=== PATIENT | male | born 1965 | race Caucasian/White ===

== ENCOUNTER 2018-06-12 18:52 | Inpatient (IN) | payer OTHER ==
[2018-06-12] MEDS ORDERED: ACETAMINOPHEN TAB 500 MG TAB PO STA (19:08)
--- NOTE | 2018-06-12 19:12 | ED ---
SOB HPI - General Source: patient Mode of arrival: wheelchair Limitations: no limitations <Shruthi Puente - Last Filed: 06/12/18 22:59> <Gerard Pollock - Last Filed: 06/13/18 08:05> - General Chief Complaint: Shortness of Breath Stated Complaint: heron Time Seen by Provider: 06/12/18 19:02 - History of Present Illness Initial Comments: 53-year-old male patient presents to the emergency department today for evaluation of progressive dyspnea. Patient states that over the last year he has been having increased difficulty with his breathing. States he did stop smoking approximately one month ago. Patient states over the last month his breathing seems to have worsened. States he has seen his doctor multiple times , did complete a course of steroids which did help with wheezing however he still feels very short of breath. Patient states he feels short of breath at rest and especially with activity. States he does DuoNeb breathing treatments 4 times daily. States he does have a cough denies any sputum production with this. States he has been chilled. He denies any chest pain, dizziness, or weakness. Denies any abdominal pain, nausea, or vomiting. Patient denies any recent rash, diarrhea, constipation, back pain, numbness, tingling, hematuria, dysuria, urinary urgency, urinary frequency, headache, visual changes, or any other complaints. (Shruthi Puente) - Related Data Home Medications Medication Instructions Recorded Confirmed Albuterol Inhaler [Ventolin Hfa 2 puff INHALATION RT-QID PRN 06/12/18 06/12/18 Inhaler] Fluticasone/Vilanterol [Breo 1 puff INHALATION RT-DAILY 06/12/18 06/12/18 Ellipta 200-25 Mcg INH] Levofloxacin [Levaquin] 500 mg PO DAILY 06/12/18 06/12/18 predniSONE See Taper PO DIRECTED 06/12/18 06/12/18 Allergies Allergy/AdvReac Type Severity Reaction Status Date / Time No Known Allergies Allergy Verified 06/12/18 19:10 Review of Systems ROS Other: All systems not noted in ROS Statement are negative. <Shruthi Puente - Last Filed: 06/12/18 22:59> ROS Other: All systems not noted in ROS Statement are negative. <Gerard Pollock - Last Filed: 06/13/18 08:05> ROS Statement: Those systems with pertinent positive or pertinent negative responses have been documented in the HPI. Past Medical History Past Medical History: No Reported History History of Any Multi-Drug Resistant Organisms: None Reported Past Surgical History: No Surgical Hx Reported Past Psychological History: No Psychological Hx Reported Smoking Status: Former smoker Past Alcohol Use History: Occasional Past Drug Use History: None Reported <Shruthi Puente M - Last Filed: 06/12/18 22:59> General Exam Limitations: no limitations General appearance: alert, in no apparent distress, other (This is a well- developed, well-nourished adult male in mild respiratory distress. Vital signs upon presentation are temperature 102.7F oral, pulse 111, respirations 28, blood pressure 128/82, pulse ox 90% on room air.) Eye exam: Present: normal appearance, PERRL, EOMI. Absent: scleral icterus, conjunctival injection, periorbital swelling ENT exam: Present: normal exam, normal oropharynx, mucous membranes moist Respiratory exam: Present: decreased breath sounds (Generalized). Absent: normal lung sounds bilaterally, respiratory distress, wheezes, rales, rhonchi, stridor Cardiovascular Exam: Present: normal rhythm, tachycardia, normal heart sounds. Absent: systolic murmur, diastolic murmur, rubs, gallop, clicks GI/Abdominal exam: Present: soft, normal bowel sounds. Absent: distended, tenderness, guarding, rebound, rigid Neurological exam: Present: alert, oriented X3, CN II-XII intact Psychiatric exam: Present: normal affect, normal mood Skin exam: Present: warm, dry, intact, normal color. Absent: rash <Shruthi Puente M - Last Filed: 06/12/18 22:59> Vital Signs 06/12/18 06/12/18 06/12/18 18:53 19:12 19:38 Temperature 98.3 F 102.7 F H Pulse Rate 111 H 105 H Respiratory 28 H 46 H Rate Blood Pressure 128/82 O2 Sat by Pulse 90 L Oximetry 06/12/18 06/12/18 06/12/18 19:40 19:50 19:58 Temperature Pulse Rate 105 H 100 101 H Respiratory 13 20 Rate Blood Pressure 118/75 O2 Sat by Pulse 94 L 94 L Oximetry 06/12/18 06/12/18 06/12/18 20:00 20:03 20:10 Temperature Pulse Rate 101 H 100 102 H Respiratory 24 20 Rate Blood Pressure 108/78 O2 Sat by Pulse 93 L 92 L Oximetry 06/12/18 06/12/18 06/12/18 20:20 20:30 20:40 Temperature Pulse Rate 101 H 100 101 H Respiratory 20 39 H 29 H Rate Blood Pressure 108/78 108/78 106/72 O2 Sat by Pulse 91 L 93 L 94 L Oximetry 06/12/18 06/12/18 06/12/18 20:50 21:00 21:10 Temperature Pulse Rate 96 96 93 Respiratory 20 17 15 Rate Blood Pressure 106/72 106/72 105/70 O2 Sat by Pulse 92 L 91 L 93 L Oximetry 06/12/18 06/12/18 06/12/18 21:20 21:24 21:30 Temperature 100.6 F H Pulse Rate 92 90 Respiratory 14 16 Rate Blood Pressure 105/70 105/70 O2 Sat by Pulse 93 L 93 L Oximetry 06/12/18 06/12/18 06/12/18 21:40 21:50 22:00 Temperature Pulse Rate 86 83 83 Respiratory 16 16 19 Rate Blood Pressure 97/70 97/70 97/70 O2 Sat by Pulse 92 L 94 L 92 L Oximetry 06/12/18 06/12/18 06/12/18 22:10 22:20 22:30 Temperature Pulse Rate 83 87 86 Respiratory 18 21 9 L Rate Blood Pressure 91/70 O2 Sat by Pulse 92 L 93 L 93 L Oximetry 06/12/18 06/12/18 06/12/18 22:40 22:50 23:00 Temperature Pulse Rate 81 85 84 Respiratory 11 L 25 H 18 Rate Blood Pressure 105/78 105/78 105/78 O2 Sat by Pulse 91 L 88 L 90 L Oximetry 06/12/18 06/12/18 06/12/18 23:10 23:20 23:30 Temperature Pulse Rate 86 90 88 Respiratory 23 16 15 Rate Blood Pressure 104/70 104/70 O2 Sat by Pulse 90 L 90 L 89 L Oximetry 06/12/18 06/12/18 06/12/18 23:40 23:50 23:54 Temperature Pulse Rate 86 94 87 Respiratory 17 18 Rate Blood Pressure 117/72 117/72 O2 Sat by Pulse 91 L 97 Oximetry Medical Decision Making - Lab Data Result diagrams: 06/12/18 19:39 06/12/18 19:39 - Radiology Data Radiology results: report reviewed, image reviewed <Shruthi Puente - Last Filed: 06/12/18 22:59> - Lab Data Result diagrams: 06/12/18 19:39 06/12/18 19:39 <Gerard Pollock - Last Filed: 06/13/18 08:05> - Medical Decision Making 53-year-old male patient presents emergency department today for evaluation of increasing shortness of breath over the last month. Patient states symptoms worsen significantly over the last couple of days. Patient states he has been chilled and weak. States that he is dyspneic at rest and with ambulation. States he has been being treated by his primary care physician with breathing treatments, states his are not seeming to help. Labs reviewed and are relatively unremarkable, patient is positive for influenza A. Chest x-ray showed no acute cardiopulmonary process but did show emphysematous changes. The department patient was hypoxic with oxygen saturations are 89-90% on room air, 93% with 2 L of O2. Given these findings it is felt the patient would benefit from inpatient admission for COPD complicated by influenza. We'll continue bronchodilators and IV steroids. I did discuss use of Tamiflu with the patient, he is agreeable to receiving this medication we'll give first dose now. (Shruthi Puente) I saw this patient in conjunction with the physician dental hygiene administrative assistant. I performed independent history and physical exam. Agree with case management. (Gerard Pollock) - Lab Data Lab Results 06/12/18 06/12/18 06/12/18 Range/Units 19:39 19:39 19:39 WBC 10.1 (3.8-10.6) k/uL RBC 5.28 (4.30-5.90) m/uL Hgb 15.7 (13.0-17.5) gm/dL Hct 46.3 (39.0-53.0) % MCV 87.7 (80.0-100.0) fL MCH 29.8 (25.0-35.0) pg MCHC 34.0 (31.0-37.0) g/dL RDW 12.6 (11.5-15.5) % Plt Count 369 (150-450) k/uL Neutrophils % 92 % Lymphocytes % 3 % Monocytes % 4 % Eosinophils % 1 % Basophils % 0 % Neutrophils # 9.2 H (1.3-7.7) k/uL Lymphocytes # 0.3 L (1.0-4.8) k/uL Monocytes # 0.4 (0-1.0) k/uL Eosinophils # 0.1 (0-0.7) k/uL Basophils # 0.0 (0-0.2) k/uL PT (9.0-12.0) sec INR (<1.2) APTT (22.0-30.0) sec D-Dimer (<0.60) mg/L FEU Sodium 134 L (137-145) mmol/L Potassium 4.8 (3.5-5.1) mmol/L Chloride 99 (98-107) mmol/L Carbon Dioxide 26 (22-30) mmol/L Anion Gap 9 mmol/L BUN 21 H (9-20) mg/dL Creatinine 0.75 (0.66-1.25) mg/dL Est GFR (CKD-EPI)AfAm >90 (>60 ml/min/1.73 sqM) Est GFR (CKD-EPI)NonAf >90 (>60 ml/min/1.73 sqM) Glucose 122 H (74-99) mg/dL Plasma Lactic Acid Oumar (0.7-2.0) mmol/L Calcium 8.5 (8.4-10.2) mg/dL Total Bilirubin 0.3 (0.2-1.3) mg/dL AST 21 (17-59) U/L ALT 33 (21-72) U/L Alkaline Phosphatase 40 (38-126) U/L Total Creatine Kinase 276 H (55-170) U/L CK-MB (CK-2) 0.6 (0.0-2.4) ng/mL CK-MB (CK-2) Rel Index 0.2 Troponin I <0.012 (0.000-0.034) ng/mL Total Protein 6.3 (6.3-8.2) g/dL Albumin 3.5 (3.5-5.0) g/dL Influenza Type A RNA (Not Detectd) Influenza Type B (PCR) (Not Detectd) 06/12/18 06/12/18 06/12/18 Range/Units 19:39 19:39 19:39 WBC (3.8-10.6) k/uL RBC (4.30-5.90) m/uL Hgb (13.0-17.5) gm/dL Hct (39.0-53.0) % MCV (80.0-100.0) fL MCH (25.0-35.0) pg MCHC (31.0-37.0) g/dL RDW (11.5-15.5) % Plt Count (150-450) k/uL Neutrophils % % Lymphocytes % % Monocytes % % Eosinophils % % Basophils % % Neutrophils # (1.3-7.7) k/uL Lymphocytes # (1.0-4.8) k/uL Monocytes # (0-1.0) k/uL Eosinophils # (0-0.7) k/uL Basophils # (0-0.2) k/uL PT 10.6 (9.0-12.0) sec INR 1.0 (<1.2) APTT 24.5 (22.0-30.0) sec D-Dimer (<0.60) mg/L FEU Sodium (137-145) mmol/L Potassium (3.5-5.1) mmol/L Chloride (98-107) mmol/L Carbon Dioxide (22-30) mmol/L Anion Gap mmol/L BUN (9-20) mg/dL Creatinine (0.66-1.25) mg/dL Est GFR (CKD-EPI)AfAm (>60 ml/min/1.73 sqM) Est GFR (CKD-EPI)NonAf (>60 ml/min/1.73 sqM) Glucose (74-99) mg/dL Plasma Lactic Acid Oumar 1.3 (0.7-2.0) mmol/L Calcium (8.4-10.2) mg/dL Total Bilirubin (0.2-1.3) mg/dL AST (17-59) U/L ALT (21-72) U/L Alkaline Phosphatase (38-126) U/L Total Creatine Kinase (55-170) U/L CK-MB (CK-2) (0.0-2.4) ng/mL CK-MB (CK-2) Rel Index Troponin I (0.000-0.034) ng/mL Total Protein (6.3-8.2) g/dL Albumin (3.5-5.0) g/dL Influenza Type A RNA Detected H (Not Detectd) Influenza Type B (PCR) Not Detected (Not Detectd) 06/12/18 Range/Units 19:39 WBC (3.8-10.6) k/uL RBC (4.30-5.90) m/uL Hgb (13.0-17.5) gm/dL Hct (39.0-53.0) % MCV (80.0-100.0) fL MCH (25.0-35.0) pg MCHC (31.0-37.0) g/dL RDW (11.5-15.5) % Plt Count (150-450) k/uL Neutrophils % % Lymphocytes % % Monocytes % % Eosinophils % % Basophils % % Neutrophils # (1.3-7.7) k/uL Lymphocytes # (1.0-4.8) k/uL Monocytes # (0-1.0) k/uL Eosinophils # (0-0.7) k/uL Basophils # (0-0.2) k/uL PT (9.0-12.0) sec INR (<1.2) APTT (22.0-30.0) sec D-Dimer 0.38 (<0.60) mg/L FEU Sodium (137-145) mmol/L Potassium (3.5-5.1) mmol/L Chloride (98-107) mmol/L Carbon Dioxide (22-30) mmol/L Anion Gap mmol/L BUN (9-20) mg/dL Creatinine (0.66-1.25) mg/dL Est GFR (CKD-EPI)AfAm (>60 ml/min/1.73 sqM) Est GFR (CKD-EPI)NonAf (>60 ml/min/1.73 sqM) Glucose (74-99) mg/dL Plasma Lactic Acid Oumar (0.7-2.0) mmol/L Calcium (8.4-10.2) mg/dL Total Bilirubin (0.2-1.3) mg/dL AST (17-59) U/L ALT (21-72) U/L Alkaline Phosphatase (38-126) U/L Total Creatine Kinase (55-170) U/L CK-MB (CK-2) (0.0-2.4) ng/mL CK-MB (CK-2) Rel Index Troponin I (0.000-0.034) ng/mL Total Protein (6.3-8.2) g/dL Albumin (3.5-5.0) g/dL Influenza Type A RNA (Not Detectd) Influenza Type B (PCR) (Not Detectd) - Radiology Data Two-view x-ray of the chest is obtained. Report is reviewed in its entirety. Impression by Dr. Person shows chronic emphysematous changes without suspicious acute infiltrate. (Shruthi Puente) Disposition Decision to Admit Reason: Admit from EC Decision Date: 06/12/18 Decision Time: 23:02 <Shruthi Puente - Last Filed: 06/12/18 22:59> <Gerard Pollock - Last Filed: 06/13/18 08:05> Clinical Impression: COPD exacerbation, Influenza A Disposition: ADMITTED IP TO THIS HOSP Condition: Serious Addendum entered and electronically signed by Shruthi Puente, CLAIMS SERVICE REPRESENTATIVE-BC, AGACNP - 06/13/18 00:39: EKG DOCUMENTATION: EKG obtained at 1934 shows sinus tachycardia with right atrial March went with a left axis deviation, possible pulmonary disease pattern. Ventricular rate is 105, ME interval 124, QRS duration 80, QT 320, QTC 422. No evidence of ST elevation or depression.
[2018-06-12] MEDS: SODIUM CHLORIDE 0.9% 500 ML 500 ML IV SCH (19:45)
[2018-06-12] MEDS ORDERED: IPRATROPIUM-ALBUTEROL 3 ML NEB INHALATION STA (19:47)
[2018-06-12] MEDS ORDERED: methylPREDNISolone SOD SUCCI 125 MG/2 ML VIAL IV STA (19:48)
--- NOTE | 2018-06-12 19:49 | XR ---
EXAMINATION TYPE: XR chest 2V DATE OF EXAM: 06/12/2018 COMPARISON: NONE HISTORY: Fever and cough. TECHNIQUE: Frontal and lateral views of the chest are obtained. FINDINGS: Underlying emphysematous change is present. Blunting of bilateral posterior costophrenic an gles suggests tiny pleural effusions and/or pleural thickening. There is no suspicious focal air spac e opacity or pneumothorax seen bilaterally. The cardiac silhouette size is within normal limits. T he osseous structures are intact. IMPRESSION: Chronic emphysematous change without suspicious acute infiltrate.
[2018-06-12 19:56] LABS: Basophils % (A) 0 %; Eosinophils # (A) 0.1 k/uL (0-0.7); Eosinophils % (A) 1 %; HCT 46.3 % (39.0-53.0); HGB 15.7 gm/dL (13.0-17.5); Lymphocytes # (A) 0.3 k/uL (1.0-4.8); Lymphocytes % (A) 3 %; MCH 29.8 pg (25.0-35.0); MCV 87.7 fL (80.0-100.0); Mean Platelet Volume 6.8; Monocytes # (A) 0.4 k/uL (0-1.0); Monocytes % (A) 4 %; Neutrophils # (A) 9.2 k/uL (1.3-7.7); Neutrophils % (A) 92 %; Platelet Count 369 k/uL (150-450); RBC 5.28 m/uL (4.30-5.90); RDW 12.6 % (11.5-15.5); WBC 10.1 k/uL (3.8-10.6)
[2018-06-12 20:08] LABS: ALT 33 U/L (21-72); AST 21 U/L (17-59); Albumin 3.5 g/dL (3.5-5.0); Alkaline Phosphatase 40 U/L (38-126); Anion Gap 9 mmol/L; Blood Urea Nitrogen 21 mg/dL (9-20); Calcium 8.5 mg/dL (8.4-10.2); Carbon Dioxide 26 mmol/L (22-30); Chloride 99 mmol/L (98-107); Glucose 122 mg/dL (74-99); Potassium 4.8 mmol/L (3.5-5.1); Sodium 134 mmol/L (137-145); Total Bilirubin 0.3 mg/dL (0.2-1.3); Total Protein 6.3 g/dL (6.3-8.2)
[2018-06-12 20:13] LABS: Partial Thromboplastin Time 24.5 sec (22.0-30.0); Prothrombin Time 10.6 sec (9.0-12.0)
[2018-06-12 20:16] LABS: Creatine Kinase 276 U/L (55-170)
[2018-06-12 20:29] LABS: Creatine Kinase MB 0.6 ng/mL (0.0-2.4); Troponin I <0.012 ng/mL (0.000-0.034)
[2018-06-12] MEDS ORDERED: ALBUTEROL NEBULIZED 2.5 MG/3 ML INHALATION STA (22:50)
[2018-06-12] MEDS ORDERED: OSELTAMIVIR 75 MG CAP PO STA (22:54)
[2018-06-12] MEDS ORDERED: IPRATROPIUM-ALBUTEROL 3 ML NEB INHALATION PRN (22:55)
[2018-06-13] MEDS: methylPREDNISolone SOD SUCCI 125 MG/2 ML VIAL IV SCH ×5 (00:09→23:04)
[2018-06-13] MEDS ORDERED: NALOXONE 0.4 MG/ML 1 ML VIAL IV PRN (01:31)
--- NOTE | 2018-06-13 01:31 | P.HPIM ---
History of Present Illness H&P Date: 06/12/18 Chief Complaint: Shortness of breath 53-year-old male with history of COPD Patient presents to the hospital due to a month history of progressive dyspnea. He quit smoking 1 month ago as he was unable to tolerate it anymore. He reports he is able to walk around the house with no limitations owing he goes out of the house that's when he starts to struggle with breathing if he continues to be active for long time. This has been progressive and worsening over the past month. follows up with his PCP who prescribed him a course of tapering dose of steroid and antibiotics. He continues to take his Brio inhaler and albuterol he also uses nebulizer 4 times a day over the past week or so with not much of her relief. He complains of productive cough sputum ranging between whitish and yellowish in color. He reports some muscle aches over the past few days but denies any fevers or chills denies any sore throat denies any runny nose. Patient decided to come today to the ER due to worsening symptoms symptoms of shortness of breath with no much improvement. Despite outpatient therapy. Patient does not use home oxygen Patient denies any orthopnea or paroxysmal maternal dyspnea or any leg swelling. In the ER chest x-ray was performed showed no acute infiltrations Flu test was positive for influenza A patient was agreeable to start Tamiflu. Patient also reported significant unintentional weight loss over the past 2 years. Patient never had colonoscopy but denies any melena or bloody bowel movements. Review of Systems ers Pertinent positives as noted in HPI. All other systems were reviewed and are negative Past Medical History Past Medical History: No Reported History, COPD History of Any Multi-Drug Resistant Organisms: None Reported Past Surgical History: No Surgical Hx Reported Past Psychological History: No Psychological Hx Reported Smoking Status: Former smoker Past Alcohol Use History: Occasional Past Drug Use History: None Reported - Past Family History Father Additional Family Medical History / Comment(s): Lung Cancer Mother Family Medical History: No Reported History Medications and Allergies Home Medications Medication Instructions Recorded Confirmed Type Albuterol Inhaler [Ventolin Hfa 2 puff INHALATION RT-QID PRN 06/12/18 06/12/18 History Inhaler] Fluticasone/Vilanterol [Breo 1 puff INHALATION RT-DAILY 06/12/18 06/12/18 History Ellipta 200-25 Mcg INH] Levofloxacin [Levaquin] 500 mg PO DAILY 06/12/18 06/12/18 History predniSONE See Taper PO DIRECTED 06/12/18 06/12/18 History Allergies Allergy/AdvReac Type Severity Reaction Status Date / Time No Known Allergies Allergy Verified 06/12/18 19:10 Physical Exam Vitals: Vital Signs Temp Pulse Resp BP Pulse Ox 06/12/18 23:54 87 06/12/18 23:50 94 18 117/72 97 06/12/18 23:40 86 17 117/72 91 L 06/12/18 23:30 88 15 89 L 06/12/18 23:20 90 16 104/70 90 L 06/12/18 23:10 86 23 104/70 90 L 06/12/18 23:00 84 18 105/78 90 L 06/12/18 22:50 85 25 H 105/78 88 L 06/12/18 22:40 81 11 L 105/78 91 L 06/12/18 22:30 86 9 L 91/70 93 L 06/12/18 22:20 87 21 93 L 06/12/18 22:10 83 18 92 L 06/12/18 22:00 83 19 97/70 92 L 06/12/18 21:50 83 16 97/70 94 L 06/12/18 21:40 86 16 97/70 92 L 06/12/18 21:30 90 16 105/70 93 L 06/12/18 21:24 100.6 F H 06/12/18 21:20 92 14 105/70 93 L 06/12/18 21:10 93 15 105/70 93 L 06/12/18 21:00 96 17 106/72 91 L 06/12/18 20:50 96 20 106/72 92 L 06/12/18 20:40 101 H 29 H 106/72 94 L 06/12/18 20:30 100 39 H 108/78 93 L 06/12/18 20:20 101 H 20 108/78 91 L 06/12/18 20:10 102 H 20 108/78 92 L 06/12/18 20:03 100 06/12/18 20:00 101 H 24 93 L 06/12/18 19:58 101 H 06/12/18 19:50 100 20 118/75 94 L 06/12/18 19:40 105 H 13 94 L 06/12/18 19:38 105 H 46 H 06/12/18 19:12 102.7 F H 06/12/18 18:53 98.3 F 111 H 28 H 128/82 90 L Intake and Output 06/12/18 06/12/18 06/13/18 14:59 22:59 06:59 Other: Weight 54.431 kg Constitutional: No acute distress, conversant, pleasant, appears older than stated age Eyes: Anicteric sclerae, moist conjunctiva, no lid-lag Pupils equal round reactive to light ENMT: NC/AT Oropharynx clear, no erythema, exudates Neck: Supple, FROM, no masses, or JVD No carotid bruits No thyromegaly Lungs: Decreased breath sounds throughout, prolonged expiratory phase Increased percussion note throughout Normal respiratory effort, no accessory muscle use Cardiovascular: Heart regular in rate and rhythm, distant heart sounds No murmurs, gallops, or rubs No peripheral edema Abdominal: Soft Nontender, no guarding, rebound or rigidity Abdomen moving with respiration Normoactive bowel sounds No hepatomegaly, No splenomegaly No palpable mass No abdominal wall hernia noted Skin: Normal temperature, tone, texture, turgor No induration No subcutaneous nodules No rash, lesions No ulcers Extremities: No digital cyanosis No clubbing Pedal pulses intact and symmetrical Radial pulses intact and symmetrical No calf tenderness Psychiatric: Alert and oriented to person, place and time Appropriate affect fair judgment Neuro Muscles Strength 5/5 in all 4 extremities Sensation to light touch grossly present throughout Cranial nerves II-XII grossly intact No focal sensory deficits Lymphatics: no palpable cervical or supraclavicular , or inguinal lymph nodes Results CBC & Chem 7: 06/12/18 19:39 06/12/18 19:39 Labs: Abnormal Lab Results - Last 24 Hours (Table) 06/12/18 06/12/18 06/12/18 Range/Units 19:39 19:39 19:39 Neutrophils # 9.2 H (1.3-7.7) k/uL Lymphocytes # 0.3 L (1.0-4.8) k/uL Sodium 134 L (137-145) mmol/L BUN 21 H (9-20) mg/dL Glucose 122 H (74-99) mg/dL Total Creatine Kinase 276 H (55-170) U/L Influenza Type A RNA (Not Detectd) 06/12/18 Range/Units 19:39 Neutrophils # (1.3-7.7) k/uL Lymphocytes # (1.0-4.8) k/uL Sodium (137-145) mmol/L BUN (9-20) mg/dL Glucose (74-99) mg/dL Total Creatine Kinase (55-170) U/L Influenza Type A RNA Detected H (Not Detectd) Assessment and Plan Assessment: 53-year-old male with no significant past medical history except for COPD patient admitted as inpatient with anticipated length of stay more than 48 hours due to acute hypoxic respiratory failure due to acute COPD exacerbation secondary to influenza A. Plan: Acute hypoxic respiratory failure secondary to COPD Acute COPD exacerbation secondary to influenza A Tamiflu Supplemental oxygen DuoNeb's when necessary Continue with BRIO Assess for home oxygen requirement before discharge Systemic steroids Isolation with Droplet precautions Long history of tobacco smoking quit 1 month ago Consider outpatient low-dose CAT scan of the chest due to history of unintentional weight loss Consider other age-appropriate cancer screening like colonoscopy DVT prophylaxis Heparin subcu 3 times a day Surrogate decision-maker: *Patient daughter CODE STATUS: Full code Discussed with: Patient, ER, RN Anticipated discharge: 48-[address]: Home A total of 60 minutes was spent on the care of this complex patient more than 50 % of the time was spent in counseling and care coordination.
[2018-06-13] MEDS ORDERED: ACETAMINOPHEN TAB 325 MG TAB PO PRN (07:10)
[2018-06-13] MEDS ORDERED: SYMBICORT 160-4.5 MCG INHALER INHALATION SCH (08:00)
[2018-06-13] MEDS: IPRATROPIUM-ALBUTEROL 3 ML NEB INHALATION SCH ×4 (08:52→19:24)
[2018-06-13] MEDS: SYMBICORT 160-4.5 MCG INHALER INHALATION SCH ×2 (08:59→19:25)
[2018-06-13] MEDS: HEPARIN SODIUM,PORCINE 5,000 UNIT/ML 1 ML VIAL SQ SCH ×3 (09:04→23:08)
[2018-06-13] MEDS: OSELTAMIVIR 75 MG CAP PO SCH ×2 (09:04→20:27)
[2018-06-13] MEDS: BENZONATATE 100 MG CAP PO SCH ×3 (09:04→20:26)
[2018-06-13 11:10] VITALS: BMI 18.8
[2018-06-13 11:53] LABS: Glucose,Whole Blood 139 mg/dL (75-99)
--- NOTE | 2018-06-13 14:23 | P.PN ---
Subjective Progress Note Date: 06/13/18 Principal diagnosis: COPD exacerbation, flu Patient seen and examined. No acute events overnight. Patient reports improvement in his breathing since being admitted. He denies any chest pain or palpitations. Patient reports his breathing back to normal. He is positive for the flu and appears dyspneic. Objective - Vital Signs Vital signs: Vital Signs Temp 100.1 F H 06/13/18 07:00 Pulse 84 06/13/18 12:31 Resp 18 06/13/18 07:36 BP 108/75 06/13/18 07:00 Pulse Ox 92 L 06/13/18 07:00 Intake & Output 06/12/18 06/13/18 06/13/18 18:59 06:59 18:59 Intake Total 400 Balance 400 Weight 54.431 kg 54.431 kg Intake: Oral 400 - Exam General: [Fatigued], [no distress], [appears at stated age] Derm: [warm], [dry] Head: [atraumatic], [normocephalic], [symmetric] Eyes: [EOMI], [no lid lag], [anicteric sclera] Mouth: [no lip lesion], [mucus membranes moist] Cardiovascular: [S1S2 reg], [no murmur], [positive DP pulse bilateral] Lungs: [Decreased breath sounds bilateral], [no rhonchi, no rales] , [no accessory muscle use] Abdominal: [soft], [ nontender to palpation], [no guarding], [no appreciable organomegaly] Ext: [no gross muscle atrophy], [no edema], [no contractures] Neuro: [no focal neuro deficits] Psych: [Alert], [oriented], [appropriate affect] - Labs CBC & Chem 7: 06/12/18 19:39 06/12/18 19:39 Labs: Abnormal Lab Results - Last 24 Hours (Table) 06/12/18 06/12/18 06/12/18 Range/Units 19:39 19:39 19:39 Neutrophils # 9.2 H (1.3-7.7) k/uL Lymphocytes # 0.3 L (1.0-4.8) k/uL Sodium 134 L (137-145) mmol/L BUN 21 H (9-20) mg/dL Glucose 122 H (74-99) mg/dL POC Glucose (mg/dL) (75-99) mg/dL Total Creatine Kinase 276 H (55-170) U/L Influenza Type A RNA (Not Detectd) 06/12/18 06/13/18 Range/Units 19:39 11:49 Neutrophils # (1.3-7.7) k/uL Lymphocytes # (1.0-4.8) k/uL Sodium (137-145) mmol/L BUN (9-20) mg/dL Glucose (74-99) mg/dL POC Glucose (mg/dL) 139 H (75-99) mg/dL Total Creatine Kinase (55-170) U/L Influenza Type A RNA Detected H (Not Detectd) Assessment and Plan Assessment: Assessment and Plan 1. Acute hypoxic respiratory failure secondary to COPD 2. Acute COPD exacerbation secondary to influenza A 3. Influenza A 4. Weight loss Patient reports great improvement in his breathing since admission. He does however appeared dyspneic during questioning. He is saturating 92% on 2 L nasal cannula. He is never been diagnosed with COPD but he has a long smoking history. He had an appointment this Wednesday by a visiting physician for home oxygen evaluation. We will continue nebulization treatments 4 times a day scheduled and as needed along with Symbicort 2 puffs twice a day and Solu- Medrol 60 mg IV every 6 hours for treatment of COPD. Tylenol for fever. Tessalon Perles for cough. Will continue Tamiflu for treatment of flu. The plan is to switch to oral steroids tomorrow. I will also assess for home oxygen requirements. I have also discussed with the patient the need for regular health maintenance, colonoscopy and low dose computed tomography scan of the chest in the outpatient setting for workup of the patient's weight loss. Patient will likely be discharged tomorrow, he is pending clinical improvement.
[2018-06-13 17:02] LABS: Glucose,Whole Blood 188 mg/dL (75-99)
[2018-06-13 20:17] LABS: Glucose,Whole Blood 151 mg/dL (75-99)
[2018-06-13] MEDS: INSULIN ASPART 100 UNIT/ML 1 ML 10 ML VIAL SQ SCH (20:29)
[2018-06-14] MEDS: methylPREDNISolone SOD SUCCI 125 MG/2 ML VIAL IV SCH ×4 (04:59→23:17)
[2018-06-14 07:18] LABS: Glucose,Whole Blood 125 mg/dL (75-99)
[2018-06-14] MEDS: INSULIN ASPART 100 UNIT/ML 1 ML 10 ML VIAL SQ SCH ×4 (07:19→22:03)
[2018-06-14] MEDS: IPRATROPIUM-ALBUTEROL 3 ML NEB INHALATION SCH ×4 (07:25→19:19)
[2018-06-14] MEDS: SYMBICORT 160-4.5 MCG INHALER INHALATION SCH ×2 (07:25→19:19)
[2018-06-14] MEDS: BENZONATATE 100 MG CAP PO SCH ×3 (08:58→20:10)
[2018-06-14] MEDS: OSELTAMIVIR 75 MG CAP PO SCH ×2 (08:58→20:10)
[2018-06-14] MEDS: HEPARIN SODIUM,PORCINE 5,000 UNIT/ML 1 ML VIAL SQ SCH ×3 (08:59→23:21)
[2018-06-14 09:03] LABS: Basophils % (A) 0 %; Eosinophils % (A) 0 %; HCT 45.8 % (39.0-53.0); HGB 15.2 gm/dL (13.0-17.5); Lymphocytes # (A) 0.4 k/uL (1.0-4.8); Lymphocytes % (A) 4 %; MCH 29.9 pg (25.0-35.0); MCHC 33.1 g/dL (31.0-37.0); MCV 90.3 fL (80.0-100.0); Monocytes # (A) 0.2 k/uL (0-1.0); Monocytes % (A) 2 %; Neutrophils # (A) 8.3 k/uL (1.3-7.7); Neutrophils % (A) 93 %; Platelet Count 375 k/uL (150-450); RBC 5.07 m/uL (4.30-5.90); RDW 12.6 % (11.5-15.5); WBC 8.9 k/uL (3.8-10.6)
[2018-06-14 09:07] LABS: Anion Gap 6 mmol/L; Blood Urea Nitrogen 23 mg/dL (9-20); Calcium 8.5 mg/dL (8.4-10.2); Carbon Dioxide 32 mmol/L (22-30); Chloride 99 mmol/L (98-107); Glucose 186 mg/dL (74-99); Potassium 4.8 mmol/L (3.5-5.1); Sodium 137 mmol/L (137-145)
[2018-06-14 11:38] LABS: Glucose,Whole Blood 125 mg/dL (75-99)
--- NOTE | 2018-06-14 15:39 | P.PN ---
Subjective Progress Note Date: 06/14/18 The patient was seen and examined at the bedside. He noted mild continued dyspnea but notes significant improvement since admission. He denied any chest pain, palpitations, fever, chills, dizziness, headache, or weakness. Objective - Vital Signs Vital signs: Vital Signs Temp 98.0 F 06/14/18 14:53 Pulse 80 06/14/18 14:53 Resp 16 06/14/18 14:53 BP 114/68 06/14/18 14:53 Pulse Ox 93 L 06/14/18 14:53 Intake & Output 06/13/18 06/14/18 06/14/18 18:59 06:59 18:59 Weight 54.431 kg Other: Voiding Method Toilet Toilet # Voids 1 2 3 - Exam General: Non-toxic, in no acute distress, appears stated age, barrel-chested, thin HEENT: NC/AT, anicteric sclerae, moist conjunctiva, no lid-lag, PERRLA Cardiovascular: S1/S2 wnl, no murmurs, rubs, or gallops Lungs: Mildly decreased air entry dylan, normal respiratory effort, mild accessory muscle use, no rales or ronchi Abdominal: Soft, nontender, non-distended, no guarding, rebound, or rigidity Skin: Warm, dry Extremities: No edema or contractures Psychiatric: Alert and oriented to person, place and time, appropriate affect, Intact judgment Neuro: CN II-XII grossly intact, Strength 5/5 in all 4 extremities, Speech intact, Sensation to light touch grossly intact throughout - Labs CBC & Chem 7: 06/14/18 08:21 06/14/18 08:21 Labs: Abnormal Lab Results - Last 24 Hours (Table) 06/13/18 06/13/18 06/14/18 Range/Units 16:41 20:14 07:07 Neutrophils # (1.3-7.7) k/uL Lymphocytes # (1.0-4.8) k/uL Carbon Dioxide (22-30) mmol/L BUN (9-20) mg/dL Glucose (74-99) mg/dL POC Glucose (mg/dL) 188 H 151 H 125 H (75-99) mg/dL 06/14/18 06/14/18 06/14/18 Range/Units 08:21 08:21 11:31 Neutrophils # 8.3 H (1.3-7.7) k/uL Lymphocytes # 0.4 L (1.0-4.8) k/uL Carbon Dioxide 32 H (22-30) mmol/L BUN 23 H (9-20) mg/dL Glucose 186 H (74-99) mg/dL POC Glucose (mg/dL) 125 H (75-99) mg/dL Microbiology - Last 24 Hours (Table) 06/12/18 19:39 Blood Culture - Preliminary Blood No Growth after 24 hours Assessment and Plan Plan: Acute hypoxic respiratory failure secondary to acute COPD exacerbation and influenza A infection -Will c/w Solu-medrol q6h, Duonebs, and Symbicort bid -C/w Tamiflu -Droplet precautions -Will assess for oxygen requirements tomorrow to allow patient to recover from acute insult DVT//GI proph -Heparin subq -Protonix
[2018-06-14 17:23] LABS: Glucose,Whole Blood 168 mg/dL (75-99)
[2018-06-14 20:23] LABS: Glucose,Whole Blood 185 mg/dL (75-99)
[2018-06-15] MEDS: methylPREDNISolone SOD SUCCI 125 MG/2 ML VIAL IV SCH (05:42)
[2018-06-15 07:24] LABS: Glucose,Whole Blood 126 mg/dL (75-99)
[2018-06-15] MEDS ORDERED: PANTOPRAZOLE 40 MG TABLET PO SCH (07:30)
[2018-06-15] MEDS: INSULIN ASPART 100 UNIT/ML 1 ML 10 ML VIAL SQ SCH ×2 (07:35→12:39)
[2018-06-15 07:47] VITALS: BP 106/68; TEMP 98
[2018-06-15] MEDS: IPRATROPIUM-ALBUTEROL 3 ML NEB INHALATION SCH ×3 (08:19→16:00)
[2018-06-15] MEDS: SYMBICORT 160-4.5 MCG INHALER INHALATION SCH (08:19)
[2018-06-15] MEDS ORDERED: methylPREDNISolone SOD SUCCI 125 MG/2 ML VIAL IV SCH ×2 (09:00→15:00)
[2018-06-15] MEDS: HEPARIN SODIUM,PORCINE 5,000 UNIT/ML 1 ML VIAL SQ SCH (09:09)
[2018-06-15 09:19] VITALS: RESP 20
[2018-06-15] MEDS: BENZONATATE 100 MG CAP PO SCH ×2 (09:22→15:03)
[2018-06-15] MEDS: OSELTAMIVIR 75 MG CAP PO SCH (09:22)
[2018-06-15 12:09] LABS: Glucose,Whole Blood 150 mg/dL (75-99)
[2018-06-15 12:20] VITALS: PULSE 70
--- NOTE | 2018-06-15 15:10 | P.DS ---
Providers Date of admission: 06/12/18 22:57 Expected date of discharge: 06/15/18 Attending physician: Dimitri Santos MD Primary care physician: [facility] Course: The patient is a 53 yo M with a PMH of COPD and 40 pack-year smoking history presented to the ED due to progressive dyspnea on exertion. The patient noted gradually worsening dyspnea despite taking tapering doses of prednisone along with his inhalers and nebulizers. He also endorsed a cough productive of white- yellow phlegm along with muscle aches over the few days prior to presentation. In the ED, the patient tested positive for influenza A. He was subsequently admitted and started on Tamiflu along with IV steroids and bronchodilators. The patient symptoms gradually improved and his oxygen requirements decreased. On , he was noted to have an SpO2 of 87% on RA at rest. Discussed with the patient the need for supplemental oxygen and subsequent f/u with a pulmonary physician. The patient was agreeable to initiating oxygen therapy. 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 The patient was subsequently discharged w/ a prednisone taper and a total 5 day course of Tamiflu. Physical Examination General: Awake, alert, in no acute distress HEENT: NC/AT, anicteric sclerae, moist conjunctiva, no lid-lag, PERRLA, oropharynx clear, no erythema, exudates Cardiovascular: S1/S2 wnl, no murmurs, rubs, or gallops Lungs: Clear to auscultation, normal respiratory effort, no accessory muscle use Abdominal: Soft, nontender, non-distended, no guarding, rebound, or rigidity, normoactive bowel sounds Skin: Warm, dry Extremities: No edema or contractures Psychiatric: Alert and oriented to person, place and time, appropriate affect, Intact judgment Neuro: CN II-XI grossly intact, sensation to light touch grossly present throughout, strength 5/5 throughout Discharge diagnosis: Hypoxic respiratory failure; Acute COPD exacerbation; Influenza A infection A total of 60 minutes of time were spent preparing this complex discharge summary. Pertinent Studies: As above Procedures: As above Patient Condition at Discharge: Stable Plan - Discharge Summary Discharge Rx Participant: No New Discharge Prescriptions: New Oseltamivir [Tamiflu] 75 mg PO Q12HR #5 cap predniSONE 5 mg PO DAILY #63 tab Continue Fluticasone/Vilanterol [Breo Ellipta 200-25 Mcg INH] 1 puff INHALATION RT- DAILY Albuterol Inhaler [Ventolin Hfa Inhaler] 2 puff INHALATION RT-QID PRN PRN Reason: Shortness Of Breath Discontinued predniSONE See Taper PO DIRECTED Levofloxacin [Levaquin] 500 mg PO DAILY Discharge Medication List Albuterol Inhaler [Ventolin Hfa Inhaler] 2 puff INHALATION RT-QID PRN 06/12/18 [ History] Fluticasone/Vilanterol [Breo Ellipta 200-25 Mcg INH] 1 puff INHALATION RT-DAILY 06/12/18 [History] Oseltamivir [Tamiflu] 75 mg PO Q12HR #5 cap 06/15/18 [Rx] predniSONE 5 mg PO DAILY #63 tab 06/15/18 [Rx] Follow up Appointment(s)/Referral(s): Shayne Cabello DO [Primary Care Provider] - 06/22/18 10:30 am Patient Instructions/Handouts: Influenza (DC), COPD (Chronic Obstructive Pulmonary Disease) (DC) Activity/Diet/Wound Care/Special Instructions: Regular diet activity limited until follow up with PCP May shower Discharge Disposition: HOME SELF-CARE
== END 2018-06-15 16:12 | disposition home or self-care (01) | DRG 190 ==
LOC: SUPCPDRO 18:52 → EC 18:52 → 4SSUR 22:57
PROVIDERS: ADMIT Family Medicine; ATTEND Family Medicine
DX: J44.1 Chronic obstructive pulmonary disease with (acute) exacerbation (principal); J96.01 Acute respiratory failure with hypoxia; R63.4 Abnormal weight loss; J10.1 Influenza due to other identified influenza virus with other respiratory manifestations; Z79.899 Other long term (current) drug therapy; Z79.890 Hormone replacement therapy; Z87.891 Personal history of nicotine dependence; Z80.1 Family history of malignant neoplasm of trachea, bronchus and lung
CPT/HCPCS: 36415; 71046; 80048; 80053; 82550; 82553; 83605; 84484; 85025; 85379; 85610; 85730; 87040; 87502; 93005; 94640; 94760; 96361; 96374; 96376; 99285

== ENCOUNTER 2020-05-05 17:25 | Inpatient (IN) | payer BC, OTHER ==
[2020-05-05] MEDS ORDERED: IBUPROFEN 800 MG TAB PO STA (18:14)
[2020-05-05] MEDS ORDERED: ONDANSETRON 4 MG/2 ML VIAL IVP STA (18:14)
[2020-05-05] MEDS ORDERED: ACETAMINOPHEN TAB 500 MG TAB PO STA (18:14)
[2020-05-05] MEDS ORDERED: PANTOPRAZOLE 40 MG/10 ML VIAL IVP STA (18:14)
[2020-05-05] MEDS ORDERED: SODIUM CHLORIDE 0.9% 1,000 ML IV STA ×2 (18:14)
[2020-05-05] MEDS ORDERED: SODIUM CHLORIDE 0.9% 500 ML 500 ML IV STA (18:14)
--- NOTE | 2020-05-05 18:15 | ED ---
Fever HPI - General Chief Complaint: Weakness Stated Complaint: Nausea,No appetite Time Seen by Provider: 05/05/20 18:07 Source: patient, RN notes reviewed, old records reviewed Mode of arrival: ambulatory Limitations: no limitations - History of Present Illness Initial Comments: This is a 55-year-old male DF for evaluation. Patient is with fever cough. PD persistent fever shortness of breath. Patient feels like he has prior episodes of pneumonia. Denies recent travel history or sick contacts. MD Complaint: fever, malaise, weakness, other (cough, sob) -: days(s) Temperature Source: subjective Associated Symptoms: chills, myalgias, nasal congestion, cough Treatments Prior to Arrival: none - Related Data Home Medications Medication Instructions Recorded Confirmed Albuterol Inhaler (Mhu) [Ventolin 2 puff INHALATION RT-QID PRN 06/12/18 06/12/18 Hfa Inhaler (Mhu)] Fluticasone/Vilanterol [Breo 1 puff INHALATION RT-DAILY 06/12/18 06/12/18 Ellipta 200-25 Mcg INH] Previous Rx's Medication Instructions Recorded Oseltamivir [Tamiflu] 75 mg PO Q12HR #5 cap 06/15/18 predniSONE 5 mg PO DAILY #63 tab 06/15/18 Allergies Allergy/AdvReac Type Severity Reaction Status Date / Time No Known Allergies Allergy Verified 05/05/20 17:52 Review of Systems ROS Statement: Those systems with pertinent positive or pertinent negative responses have been documented in the HPI. ROS Other: All systems not noted in ROS Statement are negative. Past Medical History Past Medical History: No Reported History, COPD Additional Past Medical History / Comment(s): Pt. reports that his PCP put him on breathing treatments one year ago but they never officially diagnosed him with COPD. History of Any Multi-Drug Resistant Organisms: None Reported Past Surgical History: No Surgical Hx Reported Past Anesthesia/Blood Transfusion Reactions: No Reported Reaction Past Psychological History: No Psychological Hx Reported Smoking Status: Former smoker Past Alcohol Use History: None Reported Past Drug Use History: None Reported - Past Family History Father Additional Family Medical History / Comment(s): Lung Cancer Mother Family Medical History: No Reported History General Exam Limitations: no limitations General appearance: alert, in no apparent distress Head exam: Present: atraumatic, normocephalic, normal inspection Eye exam: Present: normal appearance, PERRL, EOMI. Absent: scleral icterus, conjunctival injection, periorbital swelling ENT exam: Present: normal exam, mucous membranes moist Neck exam: Present: normal inspection. Absent: tenderness, meningismus, lymphadenopathy Respiratory exam: Present: wheezes, accessory muscle use, decreased breath sounds, prolonged expiratory. Absent: respiratory distress, rales, rhonchi, stridor Cardiovascular Exam: Present: regular rate, normal rhythm, normal heart sounds. Absent: systolic murmur, diastolic murmur, rubs, gallop, clicks GI/Abdominal exam: Present: soft, normal bowel sounds. Absent: distended, tenderness, guarding, rebound, rigid Extremities exam: Present: normal inspection, full ROM, normal capillary refill. Absent: tenderness, pedal edema, joint swelling, calf tenderness Back exam: Present: normal inspection Neurological exam: Present: alert, oriented X3, CN II-XII intact Psychiatric exam: Present: normal affect, normal mood Skin exam: Present: warm, dry, intact, normal color. Absent: rash Course Vital Signs 05/05/20 05/05/20 17:47 20:29 Temperature 101.2 F H Pulse Rate 89 76 Respiratory 18 18 Rate Blood Pressure 101/68 105/69 O2 Sat by Pulse 93 L 94 L Oximetry - Reevaluation(s) Reevaluation #1: 05/05/20 21:02 Medical records reviewed Reevaluation #2: 05/05/20 21:02 patient no distress Reevaluation #3: 05/05/20 21:02 patient still feels mildly short of breath but feeling better with fever control - Consultations Consultation #1: Spoke with ANNABELLA to agrees to admit the patient Medical Decision Making - Medical Decision Making 55 female DF for evaluation of fever with positive pneumonia. Patient will be admitted for IV antibiotics, cardiopulmonary resuscitation monitoring - Lab Data Result diagrams: 05/05/20 18:33 05/05/20 18:33 Lab Results 05/05/20 05/05/20 05/05/20 Range/Units 18:33 18:33 18:33 WBC 3.7 L (3.8-10.6) k/uL RBC 4.86 (4.30-5.90) m/uL Hgb 13.3 (13.0-17.5) gm/dL Hct 39.5 (39.0-53.0) % MCV 81.3 (80.0-100.0) fL MCH 27.3 (25.0-35.0) pg MCHC 33.6 (31.0-37.0) g/dL RDW 13.0 (11.5-15.5) % Plt Count 280 (150-450) k/uL Neutrophils % 78 % Lymphocytes % 15 % Monocytes % 5 % Eosinophils % 0 % Basophils % 1 % Neutrophils # 2.8 (1.3-7.7) k/uL Lymphocytes # 0.6 L (1.0-4.8) k/uL Monocytes # 0.2 (0-1.0) k/uL Eosinophils # 0.0 (0-0.7) k/uL Basophils # 0.0 (0-0.2) k/uL PT 10.2 (9.0-12.0) sec INR 1.0 (<1.2) APTT 25.8 (22.0-30.0) sec Sodium 130 L (137-145) mmol/L Potassium 4.2 (3.5-5.1) mmol/L Chloride 97 L (98-107) mmol/L Carbon Dioxide 25 (22-30) mmol/L Anion Gap 8 mmol/L BUN 12 (9-20) mg/dL Creatinine 0.67 (0.66-1.25) mg/dL Est GFR (CKD-EPI)AfAm >90 (>60 ml/min/1.73 sqM) Est GFR (CKD-EPI)NonAf >90 (>60 ml/min/1.73 sqM) Glucose 111 H (74-99) mg/dL Plasma Lactic Acid Oumar (0.7-2.0) mmol/L Calcium 7.8 L (8.4-10.2) mg/dL Magnesium 2.0 (1.6-2.3) mg/dL Total Bilirubin 0.4 (0.2-1.3) mg/dL AST 47 (17-59) U/L ALT 39 (4-49) U/L Alkaline Phosphatase 49 (38-126) U/L Lactate Dehydrogenase 834 H (313-618) U/L C-Reactive Protein 63.5 H (<10.0) mg/L Total Protein 6.2 L (6.3-8.2) g/dL Albumin 3.0 L (3.5-5.0) g/dL Influenza Type A RNA (Not Detectd) Influenza Type B (PCR) (Not Detectd) 05/05/20 05/05/20 Range/Units 18:33 18:33 WBC (3.8-10.6) k/uL RBC (4.30-5.90) m/uL Hgb (13.0-17.5) gm/dL Hct (39.0-53.0) % MCV (80.0-100.0) fL MCH (25.0-35.0) pg MCHC (31.0-37.0) g/dL RDW (11.5-15.5) % Plt Count (150-450) k/uL Neutrophils % % Lymphocytes % % Monocytes % % Eosinophils % % Basophils % % Neutrophils # (1.3-7.7) k/uL Lymphocytes # (1.0-4.8) k/uL Monocytes # (0-1.0) k/uL Eosinophils # (0-0.7) k/uL Basophils # (0-0.2) k/uL PT (9.0-12.0) sec INR (<1.2) APTT (22.0-30.0) sec Sodium (137-145) mmol/L Potassium (3.5-5.1) mmol/L Chloride (98-107) mmol/L Carbon Dioxide (22-30) mmol/L Anion Gap mmol/L BUN (9-20) mg/dL Creatinine (0.66-1.25) mg/dL Est GFR (CKD-EPI)AfAm (>60 ml/min/1.73 sqM) Est GFR (CKD-EPI)NonAf (>60 ml/min/1.73 sqM) Glucose (74-99) mg/dL Plasma Lactic Acid Oumar 1.2 (0.7-2.0) mmol/L Calcium (8.4-10.2) mg/dL Magnesium (1.6-2.3) mg/dL Total Bilirubin (0.2-1.3) mg/dL AST (17-59) U/L ALT (4-49) U/L Alkaline Phosphatase (38-126) U/L Lactate Dehydrogenase (313-618) U/L C-Reactive Protein (<10.0) mg/L Total Protein (6.3-8.2) g/dL Albumin (3.5-5.0) g/dL Influenza Type A RNA Not Detected (Not Detectd) Influenza Type B (PCR) Not Detected (Not Detectd) - EKG Data -: EKG Interpreted by Me (EKG is sinus rhythm 83 NC 1:30 QRS 84 QTc 425) - Radiology Data Radiology results: report reviewed (Chest x-rays positive for pneumonia CT of chest), image reviewed Critical Care Time Critical Care Time: Yes Total Critical Care Time: 31 Disposition Clinical Impression: COPD exacerbation, Fever, Community acquired bacterial pneumonia, COVID-19 Disposition: ADMITTED IP TO THIS [facility] Condition: Serious Is patient prescribed a controlled substance at d/c from ED?: No Referrals: Shayne Cabello DO [Primary Care Provider] - 1-2 days
[2020-05-05 18:57] LABS: Basophils % (A) 1 %; Eosinophils % (A) 0 %; HCT 39.5 % (39.0-53.0); HGB 13.3 gm/dL (13.0-17.5); Lymphocytes # (A) 0.6 k/uL (1.0-4.8); Lymphocytes % (A) 15 %; MCH 27.3 pg (25.0-35.0); MCHC 33.6 g/dL (31.0-37.0); MCV 81.3 fL (80.0-100.0); Mean Platelet Volume 7.4; Monocytes # (A) 0.2 k/uL (0-1.0); Monocytes % (A) 5 %; Neutrophils # (A) 2.8 k/uL (1.3-7.7); Neutrophils % (A) 78 %; Platelet Count 280 k/uL (150-450); RBC 4.86 m/uL (4.30-5.90); WBC 3.7 k/uL (3.8-10.6)
[2020-05-05 19:10] LABS: ALT 39 U/L (4-49); AST 47 U/L (17-59); African American GFR (CKD) >90 (>60 ml/min/1.73 sqM); Alkaline Phosphatase 49 U/L (38-126); Anion Gap 8 mmol/L; Blood Urea Nitrogen 12 mg/dL (9-20); C Reactive Protein 63.5 mg/L (<10.0); Calcium 7.8 mg/dL (8.4-10.2); Carbon Dioxide 25 mmol/L (22-30); Chloride 97 mmol/L (98-107); Glucose 111 mg/dL (74-99); LDH 834 U/L (313-618); Non-African American GFR(CKD) >90 (>60 ml/min/1.73 sqM); Partial Thromboplastin Time 25.8 sec (22.0-30.0); Potassium 4.2 mmol/L (3.5-5.1); Prothrombin Time 10.2 sec (9.0-12.0); Sodium 130 mmol/L (137-145); Total Bilirubin 0.4 mg/dL (0.2-1.3); Total Protein 6.2 g/dL (6.3-8.2)
--- NOTE | 2020-05-05 19:36 | XR ---
EXAMINATION TYPE: XR chest 1V portable DATE OF EXAM: 05/05/2020 COMPARISON: 06/12/2018 HISTORY: Pneumonia TECHNIQUE: FINDINGS: There is some airspace consolidation in the right upper lobe. There is increased density in the right paratracheal region. There is some coarse interstitial infiltrate right lung base. Left huey ng is clear. Heart size is normal. IMPRESSION: Right upper lobe pneumonia. Masslike density at the right pulmonary hilum. Follow-up carleen mmended. Tumor is possible. Abnormality is new compared to old exam.
[2020-05-05] MEDS ORDERED: PNEUMONIA PROTOCOL UTILIZED 1 EACH MISC PO PRN (20:55)
[2020-05-05] MEDS ORDERED: AZITHROMYCIN 500 MG in SODIUM CHLORIDE 0.9% 250 ML IVPB STA (20:55)
[2020-05-05] MEDS ORDERED: IPRATROPIUM-ALBUTEROL 3 ML NEB INHALATION STA (20:55)
[2020-05-05] MEDS ORDERED: IPRATROPIUM-ALBUTEROL 3 ML NEB INHALATION PRN (20:55)
[2020-05-05] MEDS ORDERED: SODIUM CHLORIDE 0.9% 1,000 ML IV SCH (21:00)
[2020-05-05] MEDS ORDERED: DEXAMETHASONE SOD PHOSPHATE 10 MG/ML 1 ML VIAL IV STA (21:04)
--- NOTE | 2020-05-05 21:17 | CT ---
EXAMINATION TYPE: CT angio chest DATE OF EXAM: 05/05/2020 COMPARISON: None HISTORY: chest pain CT DLP: 306.1 mGycm Automated exposure control for dose reduction was used. CONTRAST: Performed with IV Contrast, patient injected with 100 mL of Isovue 370. There are 3-D post processed images. There is rounded 7 cm low-density mass in the right lung in the paraspinal region of the superior seg ment of the right lower lobe. There is adjacent patchy airspace infiltrate. There is pulmonary emphys mitchell. I see no mediastinal adenopathy. There is enlarged right bronchial lymph nodes up to 1.5 cm. There is normal contrast opacification of the pulmonary arteries. There are no filling defects. There is coarse infiltrate at the right lung base. There is small right pleural effusion. There is 3 cm cortical cyst anterior right kidney. The bony thorax is intact. I see no bony destructive process. IMPRESSION: Large mass in the right lung with low attenuation. I would consider possibilities of necrotic tumor a nd lung abscess. Follow-up recommended. Pulmonary emphysema. Patchy infiltrate at the right lung base and also lateral right upper lobe. No evidence of pulmonary embolism. Mild right bronchial adenopathy.
--- NOTE | 2020-05-06 08:03 | XR ---
EXAMINATION TYPE: XR chest 1V portable DATE OF EXAM: 05/06/2020 CLINICAL HISTORY: Difficulty breathing progress study.PNA, COVID TECHNIQUE: Single AP portable upright view of the chest is obtained. COMPARISON: Chest x-ray and CTA chest from one day earlier FINDINGS: Background chronic emphysematous change redemonstrated. Persistent peripheral increased op acity left upper to midlung. Persistent increased opacity peripheral right lung base. Persistent righ t suprahilar mass with peripheral increased opacity. Family reticular increased opacities noted bilat erally. Some right-sided volume loss with tracheal shift redemonstrated. No pleural effusion or pneum othorax seen bilaterally. Cardiac silhouette size is stable and within normal limits. Osseous structu res are intact. IMPRESSION: Overall stable findings, background chronic emphysematous change with strongly suspicio us right suprahilar mass worrisome for neoplasm. Right greater than left bilateral peripheral acute i nfiltrates could reflect underlying pneumonia. No significant change from one day earlier.
[2020-05-06] MEDS: ENOXAPARIN 40 MG/0.4 ML SYRINGE SQ SCH (09:19)
[2020-05-06 10:54] LABS: Ferritin 1163.1 ng/mL (22.0-322.0)
[2020-05-06] MEDS: ALBUTEROL HFA INHALER INHALATION PRN ×2 (11:11→16:26)
[2020-05-06] MEDS ORDERED: ALBUTEROL HFA INHALER INHALATION PRN (12:11)
[2020-05-06] MEDS ORDERED: dexAMETHasone 2 MG TAB PO SCH (12:30)
[2020-05-06] MEDS: CHOLECALCIFEROL 400 UNIT TAB PO SCH (13:20)
[2020-05-06] MEDS: ASCORBIC ACID 500 MG TAB PO SCH (13:20)
[2020-05-06] MEDS: ZINC SULFATE 220 MG CAP PO SCH (13:20)
[2020-05-06 13:56] VITALS: BMI 21.2
--- NOTE | 2020-05-06 15:51 | P.HPIM ---
History of Present Illness Patient is a 55-year-old male came in to ER with complaints of cough without any sputum production mild shortness of breath and fever. Patient had a computed tomography scan of the chest which showed a mass in the right lower lobe. There may be some postobstructive pneumonia does have atelectasis. Patient was tested positive for Covid 19. Patient denied any significant generalized body aches. Patient was recently tested for Covid 19 which was negative about a week ago and about couple weeks ago. As there is low suspicion of Covid, the PCR test may be false positive because of which we are obtaining another repeat test. Review of Systems REVIEW OF SYSTEMS: CONSTITUTIONAL: As mentioned in HPI HEENT: No recent visual problems or hearing problems. Denied any sore throat. CARDIOVASCULAR: No chest pain, orthopnea, PND, no palpitations, no syncope. PULMONARY: no hemoptysis. GASTROINTESTINAL: No diarrhea, no nausea, no vomiting, no abdominal pain. NEUROLOGICAL: No headaches, no weakness, no numbness. HEMATOLOGICAL: Denies any bleeding or petechiae. GENITOURINARY: Denies any burning micturition, frequency, or urgency. MUSCULOSKELETAL/RHEUMATOLOGICAL: Denies any joint pain, swelling, or any muscle pain. ENDOCRINE: Denies any polyuria or polydipsia. The rest of the 14-point review of systems is negative. Past Medical History Past Medical History: COPD Additional Past Medical History / Comment(s): Pt. reports that his PCP put him on breathing treatments one year ago but they never officially diagnosed him with COPD. History of Any Multi-Drug Resistant Organisms: None Reported Past Surgical History: No Surgical Hx Reported Past Anesthesia/Blood Transfusion Reactions: No Reported Reaction Past Psychological History: No Psychological Hx Reported Smoking Status: Former smoker Past Alcohol Use History: None Reported Past Drug Use History: None Reported - Past Family History Father Additional Family Medical History / Comment(s): Lung Cancer Mother Family Medical History: No Reported History Medications and Allergies Home Medications Medication Instructions Recorded Confirmed Type Acetaminophen Tab [Tylenol Tab] 1,000 mg PO Q6HR PRN 05/05/20 05/05/20 History Albuterol Inhaler [Ventolin Hfa 2 puff INHALATION RT-QID PRN 05/05/20 05/05/20 History Inhaler] Fluticasone/Umeclidin/Vilanter 1 puff INHALATION RT-DAILY 05/05/20 05/05/20 History [Treleamberly Ellipta 100-62.5-25] Omeprazole [PriLOSEC] 20 mg PO DAILY 05/05/20 05/05/20 History Allergies Allergy/AdvReac Type Severity Reaction Status Date / Time No Known Allergies Allergy Verified 05/05/20 21:14 Physical Exam Vitals: Vital Signs Temp Pulse Pulse Resp BP BP Pulse Ox 05/06/20 11:15 98.8 F 79 18 110/62 94 L 05/06/20 09:15 97.7 F 84 18 114/70 94 L 05/06/20 04:00 97.5 F L 60 20 99/58 95 05/05/20 23:41 67 20 05/05/20 23:38 67 20 98 05/05/20 21:51 97.9 F 66 18 98/67 97 05/05/20 21:49 97.9 F 05/05/20 21:43 98.1 F 64 18 97/56 97 05/05/20 20:29 76 18 105/69 94 L 05/05/20 17:47 101.2 F H 89 18 101/68 93 L Intake and Output 05/06/20 05/06/20 05/06/20 06:59 14:59 22:59 Intake Total 350 480 Balance 350 480 Intake: Oral 350 480 Other: Voiding Method Toilet Toilet # Voids 2 2 Weight 59.5 kg 59.5 kg PHYSICAL EXAMINATION: GENERAL: The patient is alert and oriented x3, not in any acute distress. Well developed, well nourished. HEENT: Pupils are round and equally reacting to light. EOMI. No scleral icterus. No conjunctival pallor. Normocephalic, atraumatic. No pharyngeal erythema. No thyromegaly. CARDIOVASCULAR: S1 and S2 present. No murmurs, rubs, or gallops. PULMONARY: Chest is clear to auscultation, no wheezing or crackles. ABDOMEN: Soft, nontender, nondistended, normoactive bowel sounds. No palpable organomegaly. MUSCULOSKELETAL: No joint swelling or deformity. EXTREMITIES: No cyanosis, clubbing, or pedal edema. NEUROLOGICAL: Gross neurological examination did not reveal any focal deficits. SKIN: No rashes. Note: Because of COVID 19 isolation, some of the history and physical exam findings are indirect and obtained from nursing staff, and other physician examinations to avoid unnecessary contact with the patient. Results CBC & Chem 7: 05/05/20 18:33 05/05/20 18:33 Labs: Abnormal Lab Results - Last 24 Hours (Table) 05/05/20 05/05/20 05/05/20 Range/Units 18:33 18:33 18:33 WBC 3.7 L (3.8-10.6) k/uL Lymphocytes # 0.6 L (1.0-4.8) k/uL Sodium 130 L (137-145) mmol/L Chloride 97 L (98-107) mmol/L Glucose 111 H (74-99) mg/dL Calcium 7.8 L (8.4-10.2) mg/dL Ferritin 1163.1 H (22.0-322.0) ng/mL Lactate Dehydrogenase 834 H (313-618) U/L C-Reactive Protein 63.5 H (<10.0) mg/L Total Protein 6.2 L (6.3-8.2) g/dL Albumin 3.0 L (3.5-5.0) g/dL Procalcitonin 0.24 H (0.02-0.09) ng/mL Coronavirus (PCR) (Not Detectd) 05/05/20 Range/Units 20:25 WBC (3.8-10.6) k/uL Lymphocytes # (1.0-4.8) k/uL Sodium (137-145) mmol/L Chloride (98-107) mmol/L Glucose (74-99) mg/dL Calcium (8.4-10.2) mg/dL Ferritin (22.0-322.0) ng/mL Lactate Dehydrogenase (313-618) U/L C-Reactive Protein (<10.0) mg/L Total Protein (6.3-8.2) g/dL Albumin (3.5-5.0) g/dL Procalcitonin (0.02-0.09) ng/mL Coronavirus (PCR) Detected A (Not Detectd) Thrombosis Risk Factor Assmnt - Choose All That Apply Each Factor Represents 1 point: Abnormal pulmonary function (COPD), Age 41-60 years Each Risk Factor Represents 2 Points: Age 61-74 years Other congenital or acquired thrombophilia - If yes, enter type in comment: No Thrombosis Risk Factor Assessment Total Risk Factor Score: 4 Thrombosis Risk Factor Assessment Level: Moderate Risk Assessment and Plan Plan: -Sepsis: Possibly secondary to postobstructive pneumonia, patient will be started on Zosyn. Low possibility of Covid depending on the CAT scan and other clinical findings because of which PCR is being repeated. She'll continue on IV fluids. Patient will be continued on Decadron until Covid is ruled out -Hyponatremia most probably secondary to lung malignancy and SIADH from that. Patient will be continued on IV fluids and recheck the basic metabolic profile will restrict the free water. -Shortness of breath most probably secondary to the pneumonia and patient does have significant emphysema does have history of COPD patient quit smoking -COPD with mild acute exacerbation DVT prophylaxis with Lovenox
[2020-05-06] MEDS: PIPERACILLIN-TAZOBACTAM 3.375 GM in SODIUM CHLORIDE 0.9% 100 ML IVPB SCH ×2 (15:53→23:03)
[2020-05-06] MEDS: SODIUM CHLORIDE 0.9% 1,000 ML IV SCH ×2 (15:53→22:45)
[2020-05-06] MEDS: ACETAMINOPHEN TAB 500 MG TAB PO PRN (15:57)
[2020-05-06] MEDS ORDERED: SYMBICORT 80-4.5 MCG INHALER INHALATION SCH (20:00)
[2020-05-06] MEDS ORDERED: AZITHROMYCIN 500 MG TAB PO SCH (21:00)
[2020-05-06] MEDS: SYMBICORT 160-4.5 MCG INHALER INHALATION SCH (21:59)
--- NOTE | 2020-05-07 01:58 | CONS ---
CONSULTATION PULMONARY/CRITICAL CARE CONSULTATION: DATE OF CONSULTATION: May 06, 2020 REASON FOR CONSULTATION: Lung mass. This is a 55-year-old male who was seen in the emergency room. He came in with decreased appetite, weight loss, weakness and just generally not feeling well. The patient also complained of some cough and shortness of breath with fever. The patient apparently had been tested in the past for COVID-19 twice and both times was negative. More recently here at this hospital he tested positive. Anyway, his chest x-ray showed infiltrate, right upper lobe and CT scan showed a possible mass right upper lobe. He does see an outpatient primary care physician I think by the name of Dr. Worrell and he also sees a lung doctor at [facility] by name of Dr. Ashutosh Varela. I told the patient that he would probably end up needing a biopsy of the lung mass. This probably explains his weight loss and decreased appetite and likely he may have bronchogenic carcinoma as was suggested on the radiology report. Anyway, the patient feels generally relatively well. He does have some cough and shortness of breath. A bit of phlegm. A slight fever. No chills. No nausea, vomiting, diarrhea. No abdominal pain. No genitourinary complaints. MEDICATIONS: His home medications are reviewed. He is on the Ventolin HFA inhaler, Breo inhaler, Tamiflu, and prednisone. ALLERGIES: Allergies are denied. PAST MEDICAL HISTORY: His past medical history is positive for COPD. He apparently was diagnosed by Dr. Ashutosh Varela at [facility]. The severity of his chronic lung disease is not known to me. SURGICAL HISTORY: Unremarkable. SOCIAL HISTORY: Social history is positive for previous heavy tobacco use. He denies any alcohol use or illicit drug use. FAMILY HISTORY: Family history is positive for a father with lung cancer. Mother had no major health issues. REVIEW OF SYSTEMS: CONSTITUTIONAL: Weakness. NEUROLOGIC: Negative. HEENT: Negative. CARDIOVASCULAR: Negative. PULMONARY: Shortness of breath, cough, chest congestion, minimal phlegm production. GI: Decreased appetite and weight loss. : Negative. RHEUMATOLOGIC: Negative. IMMUNOLOGIC: Negative. ENDOCRINOLOGIC: Negative. DERMATOLOGIC: Negative. PHYSICAL EXAMINATION: VITAL SIGNS: Current vital signs include a temperature 98.8, heart rate 79, respiratory rate 18, blood pressure 110/62, mean 78 and 2 L saturation 94%. GENERAL: Appears in no acute distress. HEENT: Examination is grossly unremarkable. Mucous membranes are moist. NECK: Supple. Full range of motion. No adenopathy. Neck veins are flat. CARDIOVASCULAR: Examination reveals regular rhythm and rate. S1, S2 normal. No S3, S4, murmur. Heart rate 79 beats per minute. LUNGS: Reveal a few scattered mild rhonchi. No wheezes or crackles. Breath sounds equal bilaterally. ABDOMEN: Soft. Bowel sounds are heard. EXTREMITIES: Are intact. No edema. SKIN: Without rash. NEUROLOGIC: Examination is brief but nonfocal. LABS: White count 3.7, hemoglobin 13.3, hematocrit 39.5 platelet count 280,000. PT/INR and PTT all normal. Sodium 130, potassium 4.2, chloride 97, CO2 of 25. Anion gap is 8. BUN and creatinine were 12 and 0.67. Glucose 111. Calcium 7.8, ferritin 1163. LDH 834. C- reactive protein 63.5. Procalcitonin 0.24. COVID testing was positive. Influenza testing was negative. Microbiology is currently negative. Chest x-ray shows a mass/infiltrate right upper lobe. The mass is in the right suprahilar region. CT scan of the chest on May 05 shows a lung mass in the right lung with low attenuation. This would be consistent with either necrotic tumor and lung abscess. There is patchy infiltrate at the right lung base and also lateral right upper lobe. No evidence of pulmonary embolism, and there is mild right bronchial adenopathy. ASSESSMENT: 1. COVID-19 test positive, without evidence of significant COVID-19 pneumonia/pneumonitis. 2. Right upper right upper lung mass/suprahilar mass, with possible postobstructive pneumonia, possibly consistent with underlying bronchogenic carcinoma. 3. Chronic obstructive pulmonary disease from previous heavy tobacco use. 4. Significant decreased appetite and weight loss, possibly related to underlying anorexia/cachexia syndrome of malignancy. 5. History of significant tobacco use. PLAN: The patient will be treated here. Please see my orders. The patient will be placed on albuterol, Spiriva, and Symbicort. We will also give him a small dose of prednisone. The patient can be treated here and discharged back to his primary doctor and his engineering program manager, Dr. Ashutosh Varela at [facility]. Eventually he will need a biopsy. MMODL / IJN: [id number] /
[2020-05-07] MEDS: PANTOPRAZOLE 40 MG TABLET PO SCH (06:54)
[2020-05-07] MEDS: ACETAMINOPHEN TAB 500 MG TAB PO PRN ×2 (06:59→21:12)
[2020-05-07] MEDS ORDERED: NON FORMULARY DRUG (Fluticasone/Umeclidin/Vilanter [Trelegy Ellipta 100-62.5-25] 1 EACH Bl INHALATION SCH (08:00)
[2020-05-07] MEDS ORDERED: SYMBICORT 80-4.5 MCG INHALER INHALATION SCH (08:00)
[2020-05-07] MEDS: SYMBICORT 160-4.5 MCG INHALER INHALATION SCH ×2 (08:17→21:04)
[2020-05-07] MEDS: ALBUTEROL HFA INHALER INHALATION PRN ×4 (08:17→21:04)
[2020-05-07] MEDS: TIOTROPIUM 18 MCG/PUFF INHALER INHALATION SCH (08:35)
[2020-05-07] MEDS: PIPERACILLIN-TAZOBACTAM 3.375 GM in SODIUM CHLORIDE 0.9% 100 ML IVPB SCH ×3 (09:24→23:49)
[2020-05-07] MEDS: ENOXAPARIN 40 MG/0.4 ML SYRINGE SQ SCH (09:25)
[2020-05-07] MEDS: ZINC SULFATE 220 MG CAP PO SCH (09:25)
[2020-05-07] MEDS: predniSONE 10 MG TAB PO SCH (09:25)
[2020-05-07] MEDS: ASCORBIC ACID 500 MG TAB PO SCH (09:25)
[2020-05-07] MEDS: CHOLECALCIFEROL 400 UNIT TAB PO SCH (09:25)
[2020-05-07] MEDS: SODIUM CHLORIDE 0.9% 1,000 ML IV SCH ×2 (09:26→16:00)
[2020-05-07 12:13] LABS: African American GFR (CKD) >90 (>60 ml/min/1.73 sqM); Anion Gap 6 mmol/L; Blood Urea Nitrogen 9 mg/dL (9-20); Calcium 7.8 mg/dL (8.4-10.2); Carbon Dioxide 23 mmol/L (22-30); Chloride 106 mmol/L (98-107); Glucose 113 mg/dL (74-99); Non-African American GFR(CKD) >90 (>60 ml/min/1.73 sqM); Potassium 4.2 mmol/L (3.5-5.1); Sodium 135 mmol/L (137-145)
[2020-05-07 12:50] LABS: C Reactive Protein 50.6 mg/L (<10.0)
--- NOTE | 2020-05-07 14:20 | P.PN ---
Subjective 55-year-old male came in to ER with complaints of cough without any sputum production mild shortness of breath and fever. Patient had a computed to mography scan of the chest which showed a mass in the right lower lobe. There may be some postobstructive pneumonia does have atelectasis. Patient was tested positive for Covid 19. Patient denied any significant generalized body aches. Patient was recently tested for Covid 19 which was negative about a week ago and about couple weeks ago. As there is low suspicion of Covid, the PCR test may be false positive because of which we are obtaining another repeat test. 05/07/2020 Patient was evaluated by pulmonary medicine they recommended bronchoscopy and biopsy of the mass lesion although patient declined that. 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 Patient remains on Zosyn for postobstructive pneumonia patient was s tarted on prednisone by pulmonary. Constitutional: Denied any fatigue denied any fever. Cardio vascular: denied any chest pain, palpitations Gastrointestinal denied any nausea vomiting Pulmonary: Denied any shortness of breath cough Neurologic denied any new focal deficits All inpatient medications were reviewed and appropriate changes in these medications as dictated in the interval history and assessment and plan. Objective - Vital Signs Vital signs: Vital Signs Temp 97.6 F 05/07/20 12:00 Pulse 77 05/07/20 12:00 Resp 19 05/07/20 12:00 BP 104/65 05/07/20 12:00 Pulse Ox 93 L 05/07/20 12:00 Intake & Output 05/06/20 05/07/20 05/07/20 18:59 06:59 18:59 Intake Total 480 900 Output Total 500 Balance 480 900 -500 Weight 59.5 kg 60 kg Intake: Intake, IV Titration 650 Amount Piperacillin-Tazobactam 3 100 .375 gm In Sodium Chloride 0.9% 100 ml @ 25 mls/hr IVPB Q8HR [facility] Rx# :[id number] Sodium Chloride 0.9% 1, 500 000 ml @ 100 mls/hr IV . Q10H [facility] Rx#:[id number] cefTRIAXone 2 gm In 50 Sodium Chloride 0.9% 50 ml @ 100 mls/hr IVPB Q24H [facility] Rx#:[id number] Oral 480 250 Output: Urine 500 Other: Voiding Method Toilet Toilet # Voids 2 1 - Exam PHYSICAL EXAMINATION: GENERAL: The patient is alert and oriented x3, not in any acute distress. Well developed, well nourished. HEENT: Pupils are round and equally reacting to light. EOMI. No scleral icterus. No conjunctival pallor. Normocephalic, atraumatic. No pharyngeal erythema. No thyromegaly. CARDIOVASCULAR: S1 and S2 present. No murmurs, rubs, or gallops. PULMONARY: Chest is clear to auscultation, no wheezing or crackles. ABDOMEN: Soft, nontender, nondistended, normoactive bowel sounds. No palpable organomegaly. MUSCULOSKELETAL: No joint swelling or deformity. EXTREMITIES: No cyanosis, clubbing, or pedal edema. NEUROLOGICAL: Gross neurological examination did not reveal any focal deficits. SKIN: No rashes. Note: Because of COVID 19 isolation, some of the history and physical exam findings are indirect and obtained from nursing staff, and other physician examinations to avoid unnecessary contact with the patient. - Labs CBC & Chem 7: 05/05/20 18:33 05/07/20 11:36 Labs: Abnormal Lab Results - Last 24 Hours (Table) 05/07/20 05/07/20 05/07/20 Range/Units 11:36 11:36 12:25 D-Dimer 0.84 H (<0.60) mg/L FEU Sodium 135 L (137-145) mmol/L Glucose 113 H (74-99) mg/dL Calcium 7.8 L (8.4-10.2) mg/dL Lactate Dehydrogenase 758 H (313-618) U/L C-Reactive Protein 50.6 H (<10.0) mg/L Microbiology - Last 24 Hours (Table) 05/05/20 18:48 Blood Culture - Preliminary Blood No Growth after 24 hours Assessment and Plan Plan: -Sepsis: Possibly secondary to postobstructive pneumonia, patient will be started on Zosyn. Low possibility of Covid depending on the CAT scan and other clinical findings because of which PCR is being repeated. continue on IV fluids. Patient is presently on prednisone -Hyponatremia most probably secondary to lung malignancy and SIADH from that. Improved with IV fluids probably hypovolemic hyponatremia. -Shortness of breath most probably secondary to the pneumonia and patient does have significant emphysema does have history of COPD patient quit smoking -COPD with mild acute exacerbation: On prednisone. DVT prophylaxis with Lovenox
--- NOTE | 2020-05-07 14:21 | P.PN ---
Subjective Progress Note Date: 05/07/20 Principal diagnosis: Lung mass 55-year-old white male patient who follows with a clinical field specialist Dr. Varela, who came into the emergency department on on May 05 2020 with complaints of decreased appetite, weight loss, weakness and just generally not feeling well. Chest x-ray showed the right upper lobe mass and the computed tomography scan of the chest showed a possible mass in the right upper lobe. Patient has a history of smoking, and underlying history of COPD, he denied any shortness of breath, no hemoptysis, however she does report some weight loss and not generally not feeling well, he was tested for COVID 19 and his test came back positive, although on an outpatient basis he was tested twice in the recent past and both times he was negative. He was started on antibiotics in the form of Zosyn for postobstructive pneumonia, in view of positive Covid 19 test, bronchoscopy with biopsies will have to be delayed for a few weeks. And the patient wants to follow-up with his own credit charge authorizer in regards to the lung biopsy. On today's exam patient is on 3 L of oxygen a pulse ox 93%, low-grade fever earlier this morning, he remains on Zosyn for antibiotic coverage, no hemoptysis or chest pain, no altered mentation. Objective - Vital Signs Vital signs: Vital Signs Temp 97.6 F 05/07/20 12:00 Pulse 77 05/07/20 12:00 Resp 19 05/07/20 12:00 BP 104/65 05/07/20 12:00 Pulse Ox 93 L 05/07/20 12:00 Intake & Output 05/06/20 05/07/20 05/07/20 18:59 06:59 18:59 Intake Total 480 900 Output Total 500 Balance 480 900 -500 Weight 59.5 kg 60 kg Intake: Intake, IV Titration 650 Amount Piperacillin-Tazobactam 3 100 .375 gm In Sodium Chloride 0.9% 100 ml @ 25 mls/hr IVPB Q8HR [facility] Rx# :[id number] Sodium Chloride 0.9% 1, 500 000 ml @ 100 mls/hr IV . Q10H [facility] Rx#:[id number] cefTRIAXone 2 gm In 50 Sodium Chloride 0.9% 50 ml @ 100 mls/hr IVPB Q24H [facility] Rx#:[id number] Oral 480 250 Output: Urine 500 Other: Voiding Method Toilet Toilet # Voids 2 1 - Exam GENERAL EXAM: Alert, very pleasant, 55-year-old white male, on 3 days of oxygen pulse ox 93% comfortable in no apparent distress. HEAD: Normocephalic/atraumatic. EYES: Normal reaction of pupils, equal size. Conjunctiva pink, sclera white. NOSE: Clear with pink turbinates. THROAT: No erythema or exudates. NECK: No masses, no JVD, no thyroid enlargement, no adenopathy. CHEST: No chest wall deformity. Symmetrical expansion. LUNGS: Equal air entry with no crackles, wheeze, rhonchi or dullness. CVS: Regular rate and rhythm, normal S1 and S2, no gallops, no murmurs, no rubs ABDOMEN: Soft, nontender. No hepatosplenomegaly, normal bowel sounds, no guarding or rigidity. EXTREMITIES: No clubbing, no edema, no cyanosis, 2+ pulses and upper and lower extremities. MUSCULOSKELETAL: Muscle strength and tone normal. SPINE: No scoliosis or deformity SKIN: No rashes CENTRAL NERVOUS SYSTEM: Alert and oriented -3. No focal deficits, tone is normal in all 4 extremities. PSYCHIATRIC: Alert and oriented -3. Appropriate affect. Intact judgment and insight. - Labs CBC & Chem 7: 05/05/20 18:33 05/07/20 11:36 Labs: Abnormal Lab Results - Last 24 Hours (Table) 05/07/20 05/07/20 05/07/20 Range/Units 11:36 11:36 12:25 D-Dimer 0.84 H (<0.60) mg/L FEU Sodium 135 L (137-145) mmol/L Glucose 113 H (74-99) mg/dL Calcium 7.8 L (8.4-10.2) mg/dL Lactate Dehydrogenase 758 H (313-618) U/L C-Reactive Protein 50.6 H (<10.0) mg/L Microbiology - Last 24 Hours (Table) 05/05/20 18:48 Blood Culture - Preliminary Blood No Growth after 24 hours Assessment and Plan Plan: Assessment: #1. Right upper lung mass/suprahilar mass, with possible postobstructive pneumonia, possibly consistent with underlying bronchogenic carcinoma #2. If Covid 19 test without evidence of significant Covid 19 pneumonia/pneumonitis #3. Chronic obstructive pulmonary disease from previous heavy tobacco use #4. Significant decreased appetite, weight loss possibly related to underlying anorexia/cachexia syndrome of malignancy #5. History of significant tobacco use #6. Acute hypoxic respiratory failure likely related to Covid 19 infection and right upper lobe mass, with postobstructive pneumonia Plan: We'll continue with antibiotics, will obtain follow-up inflammatory markers, continue bronchodilators and IV steroids, low-grade fever today, patient is on oxygen. Repeat COVID 19 test was sent, and pending at this time. Will continue to follow. Cannot do the bronchoscopy with biopsy at this time related to active Covid 19 infection, and the patient was to follow with his own credit charge authorizer in regards to the biopsies. I performed a history & physical examination of the patient and discussed their management with my nurse practitioner, Tori Villaseñor. I reviewed the nurse practitioner's note and agree with the documented findings and plan of care. Lung sounds are positive for diminished breath sounds The findings and the impression was discussed with the patient. I attest to the documentation by the nurse practitioner. Time with Patient: Less than 30
[2020-05-08] MEDS: PANTOPRAZOLE 40 MG TABLET PO SCH (06:01)
[2020-05-08] MEDS: SODIUM CHLORIDE 0.9% 1,000 ML IV SCH (06:46)
[2020-05-08] MEDS: SYMBICORT 160-4.5 MCG INHALER INHALATION SCH ×2 (07:51→21:42)
[2020-05-08] MEDS: ALBUTEROL HFA INHALER INHALATION PRN ×3 (07:51→21:44)
[2020-05-08] MEDS: predniSONE 10 MG TAB PO SCH (08:12)
[2020-05-08] MEDS: ENOXAPARIN 40 MG/0.4 ML SYRINGE SQ SCH (08:12)
[2020-05-08] MEDS: PIPERACILLIN-TAZOBACTAM 3.375 GM in SODIUM CHLORIDE 0.9% 100 ML IVPB SCH ×3 (08:12→23:11)
[2020-05-08] MEDS: ASCORBIC ACID 500 MG TAB PO SCH (08:13)
[2020-05-08] MEDS: ZINC SULFATE 220 MG CAP PO SCH (08:13)
[2020-05-08] MEDS: CHOLECALCIFEROL 400 UNIT TAB PO SCH (08:14)
[2020-05-08 10:14] LABS: African American GFR (CKD) >90 (>60 ml/min/1.73 sqM); Anion Gap 6 mmol/L; Blood Urea Nitrogen 9 mg/dL (9-20); Calcium 7.6 mg/dL (8.4-10.2); Carbon Dioxide 26 mmol/L (22-30); Chloride 101 mmol/L (98-107); Glucose 128 mg/dL (74-99); Non-African American GFR(CKD) >90 (>60 ml/min/1.73 sqM); Potassium 3.9 mmol/L (3.5-5.1); Sodium 133 mmol/L (137-145)
[2020-05-08] MEDS: TIOTROPIUM 18 MCG/PUFF INHALER INHALATION SCH (11:20)
--- NOTE | 2020-05-08 12:15 | XR ---
EXAMINATION TYPE: XR chest 1V portable DATE OF EXAM: 05/08/2020 Comparison: 05/06/2020 Clinical History: 55-year-old male COVID 19 Findings: Heart normal size. Emphysema with bilateral lung lucencies and hyperinflation. Consolidation througho ut the right upper lobe persists. Underlying masslike opacity along the right suprahilar region. No p leural effusion. Impression: Overall stable exam with COPD and stable masslike opacity at the right hilum and infiltrate throughou t the right upper lobe.
--- NOTE | 2020-05-08 12:20 | P.PN ---
Subjective 55-year-old male came in to ER with complaints of cough without any sputum production mild shortness of breath and fever. Patient had a computed to mography scan of the chest which showed a mass in the right lower lobe. There may be some postobstructive pneumonia does have atelectasis. Patient was tested positive for Covid 19. Patient denied any significant generalized body aches. Patient was recently tested for Covid 19 which was negative about a week ago and about couple weeks ago. As there is low suspicion of Covid, the PCR test may be false positive because of which we are obtaining another repeat test. 05/07/2020 Patient was evaluated by pulmonary medicine they recommended bronchoscopy and biopsy of the mass lesion although patient declined that. 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 Patient remains on Zosyn for postobstructive pneumonia patient was s tarted on prednisone by pulmonary. 05/08/2020 patient is positive for Covid, patient cannot get bronchoscopy for this reason at this time. Patient will be continued on present antibiotics and systemic steroids. Patient is still on 2 L of oxygen usually uses 2 L at home Constitutional: Denied any fatigue denied any fever. Cardio vascular: denied any chest pain, palpitations Gastrointestinal denied any nausea vomiting Pulmonary: Denied any shortness of breath cough Neurologic denied any new focal deficits All inpatient medications were reviewed and appropriate changes in these medications as dictated in the interval history and assessment and plan. Objective - Vital Signs Vital signs: Vital Signs Temp 99.4 F 05/08/20 08:00 Pulse 88 05/08/20 08:00 Resp 20 05/08/20 08:00 BP 139/70 05/08/20 08:00 Pulse Ox 93 L 05/08/20 08:00 Intake & Output 05/07/20 05/08/20 05/08/20 18:59 06:59 18:59 Intake Total 240 1500 Output Total 500 300 Balance -260 1200 Weight 57.8 kg Intake: Intake, IV Titration 900 Amount Piperacillin-Tazobactam 3 100 .375 gm In Sodium Chloride 0.9% 100 ml @ 25 mls/hr IVPB Q8HR [facility] Rx# :[id number] Sodium Chloride 0.9% 1, 800 000 ml @ 100 mls/hr IV . Q10H [facility] Rx#:[id number] Oral 240 600 Output: Urine 500 300 Other: Voiding Method Toilet # Voids 3 - Exam PHYSICAL EXAMINATION: GENERAL: The patient is alert and oriented x3, not in any acute distress. Well developed, well nourished. HEENT: Pupils are round and equally reacting to light. EOMI. No scleral icterus. No conjunctival pallor. Normocephalic, atraumatic. No pharyngeal erythema. No thyromegaly. CARDIOVASCULAR: S1 and S2 present. No murmurs, rubs, or gallops. PULMONARY: Chest is clear to auscultation, no wheezing or crackles. ABDOMEN: Soft, nontender, nondistended, normoactive bowel sounds. No palpable organomegaly. MUSCULOSKELETAL: No joint swelling or deformity. EXTREMITIES: No cyanosis, clubbing, or pedal edema. NEUROLOGICAL: Gross neurological examination did not reveal any focal deficits. SKIN: No rashes. Note: Because of COVID 19 isolation, some of the history and physical exam findings are indirect and obtained from nursing staff, and other physician examinations to avoid unnecessary contact with the patient. - Labs CBC & Chem 7: 05/05/20 18:33 05/08/20 09:17 Labs: Abnormal Lab Results - Last 24 Hours (Table) 05/07/20 05/07/20 05/08/20 Range/Units 11:36 12:25 09:17 D-Dimer 0.84 H (<0.60) mg/L FEU Sodium 133 L (137-145) mmol/L Glucose 128 H (74-99) mg/dL Calcium 7.6 L (8.4-10.2) mg/dL Lactate Dehydrogenase 758 H (313-618) U/L C-Reactive Protein 50.6 H (<10.0) mg/L Microbiology - Last 24 Hours (Table) 05/05/20 18:48 Blood Culture - Preliminary Blood No Growth after 48 hours Assessment and Plan Plan: -Sepsis: Possibly secondary to postobstructive pneumonia, patient will be started on Zosyn. Low possibility of Covid depending on the CAT scan and other clinical findings because of which PCR is being repeated. His continued IV fluids. Patient is presently on prednisone -Hyponatremia most probably secondary to lung malignancy and SIADH from that. Improved with IV fluids probably hypovolemic hyponatremia along with SIADH -Shortness of breath most probably secondary to the pneumonia and patient does have significant emphysema does have history of COPD patient quit smoking -COPD with mild acute exacerbation: On prednisone. DVT prophylaxis with Lovenox
--- NOTE | 2020-05-08 14:47 | P.PN ---
Subjective Progress Note Date: 05/08/20 Principal diagnosis: Right upper lobe lung mass 55-year-old white male patient who follows with a library specialist Dr. Varela, who came into the emergency department on on May 05 2020 with complaints of decreased appetite, weight loss, weakness and just generally not feeling well. Chest x-ray showed the right upper lobe mass and the computed tomography scan of the chest showed a possible mass in the right upper lobe. Patient has a history of smoking, and underlying history of COPD, he denied any shortness of breath, no hemoptysis, however she does report some weight loss and not generally not feeling well, he was tested for COVID 19 and his test came back positive, although on an outpatient basis he was tested twice in the recent past and both times he was negative. He was started on antibiotics in the form of Zosyn for postobstructive pneumonia, in view of positive Covid 19 test, bronchoscopy with biopsies will have to be delayed for a few weeks. 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 On today's exam patient is on 3 L of oxygen a pulse ox 93%, low-grade fever earlier this morning, he remains on Zosyn for antibiotic coverage, no hemoptysis or chest pain, no altered mentation. The patient is seen today 05/08/2020 in follow-up on the selective care unit. He is currently sitting up in bed. Awake and alert in no acute distress. Currently maintaining O2 saturations in the mid 90s on 3 L/m per nasal cannula. He has home oxygen at 2 L/m per nasal cannula. Today's chest x-ray reveals stab le findings. There is stable masslike opacity of the right hilum and an infiltrate throughout the right upper lobe. He is continued on Symbicort, Spiriva, redness own, Zosyn. He remains on Lovenox, vitamin C and E, zinc. Objective - Vital Signs Vital signs: Vital Signs Temp 98.9 F 05/08/20 12:00 Pulse 76 05/08/20 12:00 Resp 18 05/08/20 12:00 BP 108/73 05/08/20 12:00 Pulse Ox 94 L 05/08/20 12:00 Intake & Output 05/07/20 05/08/20 05/08/20 18:59 06:59 18:59 Intake Total 240 1500 Output Total 500 300 Balance -260 1200 Weight 57.8 kg Intake: Intake, IV Titration 900 Amount Piperacillin-Tazobactam 3 100 .375 gm In Sodium Chloride 0.9% 100 ml @ 25 mls/hr IVPB Q8HR [facility] Rx# :[id number] Sodium Chloride 0.9% 1, 800 000 ml @ 100 mls/hr IV . Q10H [facility] Rx#:[id number] Oral 240 600 Output: Urine 500 300 Other: Voiding Method Toilet # Voids 3 - Exam GENERAL EXAM: Alert, very pleasant, 55-year-old male patient, on 3 liters of oxygen pulse ox 93%, comfortable in no apparent distress. HEAD: Normocephalic/atraumatic. EYES: Normal reaction of pupils, equal size. Conjunctiva pink, sclera white. NOSE: Clear with pink turbinates. THROAT: No erythema or exudates. NECK: No masses, no JVD, no thyroid enlargement, no adenopathy. CHEST: No chest wall deformity. Symmetrical expansion. LUNGS: Equal air entry with few scattered rhonchi in the right lung. CVS: Regular rate and rhythm, normal S1 and S2, no gallops, no murmurs, no rubs ABDOMEN: Soft, nontender. No hepatosplenomegaly, normal bowel sounds, no guarding or rigidity. EXTREMITIES: No clubbing, no edema, no cyanosis, 2+ pulses and upper and lower extremities. MUSCULOSKELETAL: Muscle strength and tone normal. SPINE: No scoliosis or deformity SKIN: No rashes CENTRAL NERVOUS SYSTEM: No focal deficits, tone is normal in all 4 extremities. PSYCHIATRIC: Alert and oriented -3. Appropriate affect. Intact judgment and insight. - Labs CBC & Chem 7: 05/05/20 18:33 05/08/20 09:17 Labs: Abnormal Lab Results - Last 24 Hours (Table) 05/08/20 Range/Units 09:17 Sodium 133 L (137-145) mmol/L Glucose 128 H (74-99) mg/dL Calcium 7.6 L (8.4-10.2) mg/dL Microbiology - Last 24 Hours (Table) 05/05/20 18:48 Blood Culture - Preliminary Blood No Growth after 48 hours Assessment and Plan Assessment: 1. Right upper lung mass/suprahilar mass, with possible postobstructive pneumonia, possibly consistent with underlying bronchogenic carcinoma 2. Positive Covid 19 test without evidence of significant Covid 19 pneumonia/p neumonitis 3. Chronic obstructive pulmonary disease from previous heavy tobacco use 4. Significant decreased appetite, weight loss possibly related to underlying anorexia/cachexia syndrome of malignancy 5. History of significant tobacco use 6. Acute hypoxic respiratory failure likely related to Covid 19 infection and right upper lobe mass, with postobstructive pneumonia Plan: The patient was seen and evaluated by Dr. Saleem Chest x-ray and labs reviewed Titrate down the FiO2 as tolerated Continue current treatment plan Probable discharge in the a.m. We will follow-up regarding the right upper lobe lung mass once cleared of the Covid 19 I, the cosigning physician, performed a history & physical examination of the patient. Lungs sounds with few scattered rhonchi right lung. Maintaining good O2 saturations in the 90s on 3 L/m per nasal cannula. I discussed the assessment and plan of care with my nurse practitioner, Audrey Marcus. I attest to the above note as dictated by her.
[2020-05-09] MEDS: PANTOPRAZOLE 40 MG TABLET PO SCH (05:50)
[2020-05-09 08:22] LABS: HCT 35.4 % (39.0-53.0); HGB 11.4 gm/dL (13.0-17.5); Hypochromasia Slight; MCH 28.3 pg (25.0-35.0); MCHC 32.3 g/dL (31.0-37.0); Mean Platelet Volume 7.1; Platelet Count 397 k/uL (150-450); RBC 4.05 m/uL (4.30-5.90); RDW 13.1 % (11.5-15.5); WBC 5.6 k/uL (3.8-10.6)
[2020-05-09 08:42] LABS: African American GFR (CKD) >90 (>60 ml/min/1.73 sqM); Anion Gap 5 mmol/L; Blood Urea Nitrogen 10 mg/dL (9-20); Calcium 7.6 mg/dL (8.4-10.2); Carbon Dioxide 26 mmol/L (22-30); Chloride 105 mmol/L (98-107); Glucose 117 mg/dL (74-99); Non-African American GFR(CKD) >90 (>60 ml/min/1.73 sqM); Sodium 136 mmol/L (137-145)
[2020-05-09] MEDS: ENOXAPARIN 40 MG/0.4 ML SYRINGE SQ SCH (09:01)
[2020-05-09] MEDS: PIPERACILLIN-TAZOBACTAM 3.375 GM in SODIUM CHLORIDE 0.9% 100 ML IVPB SCH ×3 (09:01→22:59)
[2020-05-09] MEDS: predniSONE 10 MG TAB PO SCH (09:02)
[2020-05-09] MEDS: ZINC SULFATE 220 MG CAP PO SCH (09:02)
[2020-05-09] MEDS: CHOLECALCIFEROL 400 UNIT TAB PO SCH (09:02)
[2020-05-09] MEDS: ASCORBIC ACID 500 MG TAB PO SCH (09:02)
[2020-05-09] MEDS: TIOTROPIUM 18 MCG/PUFF INHALER INHALATION SCH (09:12)
[2020-05-09] MEDS: SYMBICORT 160-4.5 MCG INHALER INHALATION SCH ×2 (09:12→20:12)
[2020-05-09] MEDS: ALBUTEROL HFA INHALER INHALATION PRN ×4 (09:15→20:11)
--- NOTE | 2020-05-09 10:52 | P.PN ---
Subjective 55-year-old male came in to ER with complaints of cough without any sputum production mild shortness of breath and fever. Patient had a computed to mography scan of the chest which showed a mass in the right lower lobe. There may be some postobstructive pneumonia does have atelectasis. Patient was tested positive for Covid 19. Patient denied any significant generalized body aches. Patient was recently tested for Covid 19 which was negative about a week ago and about couple weeks ago. As there is low suspicion of Covid, the PCR test may be false positive because of which we are obtaining another repeat test. 05/07/2020 Patient was evaluated by pulmonary medicine they recommended bronchoscopy and biopsy of the mass lesion although patient declined that. 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 Patient remains on Zosyn for postobstructive pneumonia patient was s tarted on prednisone by pulmonary. 05/08/2020 patient is positive for Covid, patient cannot get bronchoscopy for this reason at this time. Patient will be continued on present antibiotics and systemic steroids. Patient is still on 3 L of oxygen usually uses 2 L at home 05/09/2020 Patient remains on 3 L of oxygen second the coronavirus PCR is still pending. Constitutional: Denied any fatigue denied any fever. Cardio vascular: denied any chest pain, palpitations Gastrointestinal denied any nausea vomiting Pulmonary: Denied any shortness of breath cough Neurologic denied any new focal deficits All inpatient medications were reviewed and appropriate changes in these medications as dictated in the interval history and assessment and plan. Objective - Vital Signs Vital signs: Vital Signs Temp 98.9 F 05/09/20 08:57 Pulse 78 05/09/20 08:57 Resp 18 05/09/20 08:57 BP 111/66 05/09/20 08:57 Pulse Ox 93 L 05/09/20 08:57 Intake & Output 05/08/20 05/09/20 05/09/20 18:59 06:59 18:59 Intake Total 236 240 240 Output Total 0 Balance 236 240 240 Weight 57.5 kg Intake: Oral 236 240 240 Output: Urine 0 Other: Voiding Method Toilet Toilet # Voids 1 - Exam PHYSICAL EXAMINATION: GENERAL: The patient is alert and oriented x3, not in any acute distress. Well developed, well nourished. HEENT: Pupils are round and equally reacting to light. EOMI. No scleral icterus. No conjunctival pallor. Normocephalic, atraumatic. No pharyngeal erythema. No thyromegaly. CARDIOVASCULAR: S1 and S2 present. No murmurs, rubs, or gallops. PULMONARY: Chest is clear to auscultation, no wheezing or crackles. ABDOMEN: Soft, nontender, nondistended, normoactive bowel sounds. No palpable organomegaly. MUSCULOSKELETAL: No joint swelling or deformity. EXTREMITIES: No cyanosis, clubbing, or pedal edema. NEUROLOGICAL: Gross neurological examination did not reveal any focal deficits. SKIN: No rashes. Note: Because of COVID 19 isolation, some of the history and physical exam findings are indirect and obtained from nursing staff, and other physician examinations to avoid unnecessary contact with the patient. - Labs CBC & Chem 7: 05/05/20 18:33 05/09/20 07:30 Labs: Abnormal Lab Results - Last 24 Hours (Table) 05/09/20 Range/Units 07:30 Sodium 136 L (137-145) mmol/L Glucose 117 H (74-99) mg/dL Calcium 7.6 L (8.4-10.2) mg/dL Microbiology - Last 24 Hours (Table) 05/05/20 18:48 Blood Culture - Preliminary Blood No Growth after 72 hours Assessment and Plan Plan: -Sepsis: Possibly secondary to postobstructive pneumonia, patient will be started on Zosyn. Low possibility of Covid depending on the CAT scan and other clinical findings because of which PCR is being repeated. His continued IV fluids. Patient is presently on prednisone -Hyponatremia most probably secondary to lung malignancy and SIADH from that. Improved with IV fluids probably hypovolemic hyponatremia along with SIADH -Shortness of breath most probably secondary to the pneumonia and patient does have significant emphysema does have history of COPD patient quit smoking -COPD with mild acute exacerbation: On prednisone. DVT prophylaxis with Lovenox
[2020-05-09 11:06] LABS: MCV 87.4 fL (80.0-100.0)
--- NOTE | 2020-05-09 14:15 | P.PN ---
Subjective Progress Note Date: 05/09/20 Principal diagnosis: Right upper lobe lung mass 55-year-old white male patient who follows with a contact center specialist Dr. Varela, who came into the emergency department on on May 05 2020 with complaints of decreased appetite, weight loss, weakness and just generally not feeling well. Chest x-ray showed the right upper lobe mass and the computed tomography scan of the chest showed a possible mass in the right upper lobe. Patient has a history of smoking, and underlying history of COPD, he denied any shortness of breath, no hemoptysis, however she does report some weight loss and not generally not feeling well, he was tested for COVID 19 and his test came back positive, although on an outpatient basis he was tested twice in the recent past and both times he was negative. He was started on antibiotics in the form of Zosyn for postobstructive pneumonia, in view of positive Covid 19 test, bronchoscopy with biopsies will have to be delayed for a few weeks. And the patient wants to follow-up with his own hand button splitter in regards to the lung biopsy. On today's exam patient is on 3 L of oxygen a pulse ox 93%, low-grade fever earlier this morning, he remains on Zosyn for antibiotic coverage, no hemoptysis or chest pain, no altered mentation. The patient is seen today 05/08/2020 in follow-up on the selective care unit. He is currently sitting up in bed. Awake and alert in no acute distress. Currently maintaining O2 saturations in the mid 90s on 3 L/m per nasal cannula. He has home oxygen at 2 L/m per nasal cannula. Today's chest x-ray reveals stab le findings. There is stable masslike opacity of the right hilum and an infiltrate throughout the right upper lobe. He is continued on Symbicort, Spiriva, redness own, Zosyn. He remains on Lovenox, vitamin C and E, zinc. The patient is seen today 05/09/2020 in follow-up on the selective care unit. He is currently resting comfortably in bed. Awake and alert in no acute distress. He is currently maintaining O2 saturations in the mid 90s on 3 L/m per nasal cannula. She's afebrile. Hemodynamically stable. White count 5.6. Hemoglobin 11.4. Sodium 136. Potassium 4.0. Follow-up Covid screen pending. Objective - Vital Signs Vital signs: Vital Signs Temp 98.0 F 05/09/20 12:00 Pulse 76 05/09/20 12:00 Resp 16 05/09/20 12:00 BP 111/77 05/09/20 12:00 Pulse Ox 95 05/09/20 12:00 Intake & Output 05/08/20 05/09/20 05/09/20 18:59 06:59 18:59 Intake Total 236 240 240 Output Total 0 Balance 236 240 240 Weight 57.5 kg Intake: Oral 236 240 240 Output: Urine 0 Other: Voiding Method Toilet Toilet # Voids 1 - Exam GENERAL EXAM: Alert, very pleasant, 55-year-old male patient, on 3 liters of oxygen pulse ox 95%, comfortable in no apparent distress. HEAD: Normocephalic/atraumatic. EYES: Normal reaction of pupils, equal size. Conjunctiva pink, sclera white. NOSE: Clear with pink turbinates. THROAT: No erythema or exudates. NECK: No masses, no JVD, no thyroid enlargement, no adenopathy. CHEST: No chest wall deformity. Symmetrical expansion. LUNGS: Equal air entry with few scattered rhonchi in the right lung. CVS: Regular rate and rhythm, normal S1 and S2, no gallops, no murmurs, no rubs ABDOMEN: Soft, nontender. No hepatosplenomegaly, normal bowel sounds, no guarding or rigidity. EXTREMITIES: No clubbing, no edema, no cyanosis, 2+ pulses and upper and lower extremities. MUSCULOSKELETAL: Muscle strength and tone normal. SPINE: No scoliosis or deformity SKIN: No rashes CENTRAL NERVOUS SYSTEM: No focal deficits, tone is normal in all 4 extremities. PSYCHIATRIC: Alert and oriented -3. Appropriate affect. Intact judgment and insight. - Labs CBC & Chem 7: 05/09/20 07:30 05/09/20 07:30 Labs: Abnormal Lab Results - Last 24 Hours (Table) 05/09/20 05/09/20 Range/Units 07:30 07:30 RBC 4.05 L (4.30-5.90) m/uL Hgb 11.4 L (13.0-17.5) gm/dL Hct 35.4 L (39.0-53.0) % Sodium 136 L (137-145) mmol/L Glucose 117 H (74-99) mg/dL Calcium 7.6 L (8.4-10.2) mg/dL Microbiology - Last 24 Hours (Table) 05/05/20 18:48 Blood Culture - Preliminary Blood No Growth after 72 hours Assessment and Plan Assessment: 1. Right upper lung mass/suprahilar mass, with possible postobstructive pneumonia, possibly consistent with underlying bronchogenic carcinoma 2. Positive Covid 19 test without evidence of significant Covid 19 pneumonia/pneumonitis 3. Chronic obstructive pulmonary disease from previous heavy tobacco use 4. Significant decreased appetite, weight loss possibly related to underlying anorexia/cachexia syndrome of malignancy 5. History of significant tobacco use 6. Acute hypoxic respiratory failure likely related to Covid 19 infection and right upper lobe mass, with postobstructive pneumonia Plan: The patient was seen and evaluated by Dr. Saleem He will follow-up with the patient in the outpatient setting He will have a PET scan prior to any biopsies I, the cosigning physician, performed a history & physical examination of the patient. Lungs sounds with few scattered rhonchi right lung. Maintaining good O2 saturations in the 90s on 3 L/m per nasal cannula. I discussed the assessment and plan of care with my nurse practitioner, Audrey Marcus. I attest to the above note as dictated by her.
[2020-05-09 20:38] VITALS: RESP 17
[2020-05-10] MEDS: PANTOPRAZOLE 40 MG TABLET PO SCH (06:59)
[2020-05-10] MEDS: ALBUTEROL HFA INHALER INHALATION PRN ×2 (09:10→12:17)
[2020-05-10] MEDS: SYMBICORT 160-4.5 MCG INHALER INHALATION SCH (09:10)
[2020-05-10] MEDS: TIOTROPIUM 18 MCG/PUFF INHALER INHALATION SCH (09:10)
[2020-05-10] MEDS: ZINC SULFATE 220 MG CAP PO SCH (09:46)
[2020-05-10] MEDS: ASCORBIC ACID 500 MG TAB PO SCH (09:46)
[2020-05-10] MEDS: predniSONE 10 MG TAB PO SCH (09:46)
[2020-05-10] MEDS: CHOLECALCIFEROL 400 UNIT TAB PO SCH (09:46)
[2020-05-10] MEDS: PIPERACILLIN-TAZOBACTAM 3.375 GM in SODIUM CHLORIDE 0.9% 100 ML IVPB SCH (09:46)
[2020-05-10] MEDS: ENOXAPARIN 40 MG/0.4 ML SYRINGE SQ SCH (09:46)
--- NOTE | 2020-05-10 12:52 | P.DS ---
Providers Date of admission: 05/05/20 20:55 Attending physician: Rashard Daniels Consults: 05/05/20 20:55 Consult Physician Routine Consulting Provider: Teresa Osuna Consult Reason/Comments: pna Do you want consulting provider notified?: Yes Primary care physician: Shay[facility] Course: 55-year-old male came in to ER with complaints of cough without any sputum production mild shortness of breath and fever. Patient had a computed tomography scan of the chest which showed a mass in the right lower lobe. There may be some postobstructive pneumonia does have atelectasis. Patient was tested positive for Covid 19. Patient denied any significant generalized body aches. Patient was recently tested for Covid 19 which was negative about a week ago and about couple weeks ago. As there is low suspicion of Covid, the PCR test may be false positive because of which we are obtaining another repeat test. 05/07/2020 Patient was evaluated by pulmonary medicine they recommended bronchoscopy and biopsy of the mass lesion although patient declined that. 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 Patient remains on Zosyn for postobstructive pneumonia patient was started on prednisone by pulmonary. 05/08/2020 patient is positive for Covid, patient cannot get bronchoscopy for this reason at this time. Patient will be continued on present antibiotics and systemic steroids. Patient is still on 3 L of oxygen usually uses 2 L at home 05/09/2020 Patient remains on 3 L of oxygen second the coronavirus PCR is still pending. 05/10/2020 I still don't have the results of second coronavirus PCR. Patient although clinically doing better and almost at his baseline will be discharged today with the week of Augmentin and follow up with pulmonology as an outpatient and patient the will be prescribed weaning dose of steroids. PHYSICAL EXAMINATION: GENERAL: The patient is alert and oriented x3, not in any acute distress. Well developed, well nourished. HEENT: Pupils are round and equally reacting to light. EOMI. No scleral icterus. No conjunctival pallor. Normocephalic, atraumatic. No pharyngeal erythema. No thyromegaly. CARDIOVASCULAR: S1 and S2 present. No murmurs, rubs, or gallops. PULMONARY: Chest is clear to auscultation, no wheezing or crackles. ABDOMEN: Soft, nontender, nondistended, normoactive bowel sounds. No palpable organomegaly. MUSCULOSKELETAL: No joint swelling or deformity. EXTREMITIES: No cyanosis, clubbing, or pedal edema. NEUROLOGICAL: Gross neurological examination did not reveal any focal deficits. SKIN: No rashes. Note: Because of COVID 19 isolation, some of the history and physical exam findings are indirect and obtained from nursing staff, and other physician examinations to avoid unnecessary contact with the patient. Assessment and Plan Plan: -Sepsis: Possibly secondary to postobstructive pneumonia, patient was treated for COPD, patient first Covid 19 was positive repeated another one as the clinical the second Covid 19 is still pending. -Hyponatremia mostly hypervolemic, improved with IV fluids may be a competent of his ADH -Shortness of breath most probably secondary to the pneumonia and patient does have significant emphysema does have history of COPD patient quit smoking -COPD with mild acute exacerbation: On prednisone. Patient Condition at Discharge: Serious Plan - Discharge Summary Discharge Rx Participant: No New Discharge Prescriptions: New Amoxic-Pot Clav 875-125Mg [Augmentin 875-125] 1 tab PO Q12HR 7 Days #14 tab predniSONE 10 mg PO DAILY #20 tab No Action Omeprazole [PriLOSEC] 20 mg PO DAILY Fluticasone/Umeclidin/Vilanter [Trelegy Ellipta 100-62.5-25] 1 puff INHALATION RT-DAILY Albuterol Inhaler [Ventolin Hfa Inhaler] 2 puff INHALATION RT-QID PRN PRN Reason: Shortness Of Breath Acetaminophen Tab [Tylenol Tab] 1,000 mg PO Q6HR PRN PRN Reason: Pain Or Fever > 100.5 Discharge Medication List Acetaminophen Tab [Tylenol Tab] 1,000 mg PO Q6HR PRN 05/05/20 [History] Albuterol Inhaler [Ventolin Hfa Inhaler] 2 puff INHALATION RT-QID PRN 05/05/20 [History] Fluticasone/Umeclidin/Vilanter [Trelegy Ellipta 100-62.5-25] 1 puff INHALATION RT-DAILY 05/05/20 [History] Omeprazole [PriLOSEC] 20 mg PO DAILY 05/05/20 [History] Amoxic-Pot Clav 875-125Mg [Augmentin 875-125] 1 tab PO Q12HR 7 Days #14 tab 1 07/10/19 [Rx] predniSONE 10 mg PO DAILY #20 tab 05/10/20 [Rx] Follow up Appointment(s)/Referral(s): Shayne Cabello DO [Primary Care Provider] - 3 Days Jax Saleem DO [Doctor of Osteopathic Medicine] - 1 Week Discharge Disposition: HOME SELF-CARE
--- NOTE | 2020-05-10 14:54 | P.PN ---
Subjective Progress Note Date: 05/10/20 Principal diagnosis: Right upper lobe lung mass 55-year-old white male patient who follows with a sustainable agriculture specialist Dr. Varela, who came into the emergency department on on May 05 2020 with complaints of decreased appetite, weight loss, weakness and just generally not feeling well. Chest x-ray showed the right upper lobe mass and the computed tomography scan of the chest showed a possible mass in the right upper lobe. Patient has a history of smoking, and underlying history of COPD, he denied any shortness of breath, no hemoptysis, however she does report some weight loss and not generally not feeling well, he was tested for COVID 19 and his test came back positive, although on an outpatient basis he was tested twice in the recent past and both times he was negative. He was started on antibiotics in the form of Zosyn for postobstructive pneumonia, in view of positive Covid 19 test, bronchoscopy with biopsies will have to be delayed for a few weeks. And the patient wants to follow-up with his own industrial technology education teacher in regards to the lung biopsy. On today's exam patient is on 3 L of oxygen a pulse ox 93%, low-grade fever earlier this morning, he remains on Zosyn for antibiotic coverage, no hemoptysis or chest pain, no altered mentation. The patient is seen today 05/08/2020 in follow-up on the selective care unit. He is currently sitting up in bed. Awake and alert in no acute distress. Currently maintaining O2 saturations in the mid 90s on 3 L/m per nasal cannula. He has home oxygen at 2 L/m per nasal cannula. Today's chest x-ray reveals stab le findings. There is stable masslike opacity of the right hilum and an infiltrate throughout the right upper lobe. He is continued on Symbicort, Spiriva, redness own, Zosyn. He remains on Lovenox, vitamin C and E, zinc. The patient is seen today 05/09/2020 in follow-up on the selective care unit. He is currently resting comfortably in bed. Awake and alert in no acute distress. He is currently maintaining O2 saturations in the mid 90s on 3 L/m per nasal cannula. She's afebrile. Hemodynamically stable. White count 5.6. Hemoglobin 11.4. Sodium 136. Potassium 4.0. Follow-up Covid screen pending. Patient is seen today 05/10/2020 in follow-up on the selective care unit. He is awake and alert in no acute distress. Resting fairly comfortably in bed. Maintaining O2 saturations in the low 90s on 3 L/m per nasal cannula. She's afebrile. Hemodynamically stable. He is continued on bronchodilators, Zosyn. Objective - Vital Signs Vital signs: Vital Signs Temp 96.6 F L 05/10/20 08:00 Pulse 74 05/10/20 08:00 Resp 17 05/10/20 03:14 BP 98/65 05/10/20 08:00 Pulse Ox 93 L 05/10/20 08:00 Intake & Output 05/09/20 05/10/20 05/10/20 18:59 06:59 18:59 Intake Total 1320 480 Output Total 200 Balance 1320 280 Weight 56.5 kg Intake: Oral 1320 480 Output: Urine 200 Other: Voiding Method Toilet # Voids 2 1 1 # Bowel Movements 1 - Exam GENERAL EXAM: Alert, very pleasant, 55-year-old male patient, on 3 liters of oxygen pulse ox 93%, comfortable in no apparent distress. HEAD: Normocephalic/atraumatic. EYES: Normal reaction of pupils, equal size. Conjunctiva pink, sclera white. NOSE: Clear with pink turbinates. THROAT: No erythema or exudates. NECK: No masses, no JVD, no thyroid enlargement, no adenopathy. CHEST: No chest wall deformity. Symmetrical expansion. LUNGS: Equal air entry with few scattered rhonchi in the right lung. CVS: Regular rate and rhythm, normal S1 and S2, no gallops, no murmurs, no rubs ABDOMEN: Soft, nontender. No hepatosplenomegaly, normal bowel sounds, no guarding or rigidity. EXTREMITIES: No clubbing, no edema, no cyanosis, 2+ pulses and upper and lower extremities. MUSCULOSKELETAL: Muscle strength and tone normal. SPINE: No scoliosis or deformity SKIN: No rashes CENTRAL NERVOUS SYSTEM: No focal deficits, tone is normal in all 4 extremities. PSYCHIATRIC: Alert and oriented -3. Appropriate affect. Intact judgment and insight. - Labs CBC & Chem 7: 05/09/20 07:30 05/09/20 07:30 Labs: Microbiology - Last 24 Hours (Table) 05/05/20 18:48 Blood Culture - Preliminary Blood No Growth after 96 hours Assessment and Plan Assessment: 1. Right upper lung mass/suprahilar mass, with possible postobstructive pneumonia, possibly consistent with underlying bronchogenic carcinoma 2. Positive Covid 19 test without evidence of significant Covid 19 pneumonia/pneumonitis 3. Chronic obstructive pulmonary disease from previous heavy tobacco use 4. Significant decreased appetite, weight loss possibly related to underlying anorexia/cachexia syndrome of malignancy 5. History of significant tobacco use 6. Acute hypoxic respiratory failure likely related to Covid 19 infection and right upper lobe mass, with postobstructive pneumonia Plan: The patient was seen and evaluated by Dr. Saleem Cleared for discharge from the pulmonary standpoint He will follow-up with in the outpatient setting in 4-5 weeks He will have a PET scan prior to any biopsies I, the cosigning physician, performed a history & physical examination of the patient. Lungs sounds with few scattered rhonchi right lung. Maintaining good O2 saturations in the 90s on 3 L/m per nasal cannula. I discussed the assessment and plan of care with my nurse practitioner, Audrey Marcus. I attest to the above note as dictated by her.
[2020-05-10 15:21] VITALS: BP 125/80; PULSE 84; TEMP 96.4
== END 2020-05-10 16:27 | disposition home or self-care (01) | DRG 871 ==
LOC: EC 17:25 → 3SCARD 20:55
PROVIDERS: ADMIT Hospitalist; ATTEND Hospitalist
DX: A41.89 Other specified sepsis (principal); U07.1 COVID-19; J12.89 Other viral pneumonia; J15.9 Unspecified bacterial pneumonia; J96.01 Acute respiratory failure with hypoxia; J98.11 Atelectasis; E22.2 Syndrome of inappropriate secretion of antidiuretic hormone; R64 Cachexia; J43.9 Emphysema, unspecified; E87.70 Fluid overload, unspecified; Z79.899 Other long term (current) drug therapy; Z87.01 Personal history of pneumonia (recurrent); Z87.891 Personal history of nicotine dependence; Z80.1 Family history of malignant neoplasm of trachea, bronchus and lung; Z68.20 Body mass index [BMI] 20.0-20.9, adult
CPT/HCPCS: 36415; 71045; 71275; 80048; 80053; 82728; 83605; 83615; 83735; 84145; 85025; 85027; 85379; 85610; 85730; 86140; 87040; 87502; 87635; 93005; 94640; 96361; 96374; 96375; 99291

== ENCOUNTER 2020-07-11 09:41 | Day surgery (SDC) | payer BC, OTHER ==
[2020-07-08 10:43] VITALS: BMI 20.9
[~2020-07-11 09:41] MED LIST: ALBUTEROL NEB (CONC) 2.5 MG/0.5 ML INHALATION ONE; ATROPINE SULFATE 0.4 MG/ML 1 ML VIAL IM ONE; DEXAMETHASONE SOD PHOSPHATE 4 MG/ML 1 ML VIAL IV ONE; HYDROmorphone 0.5 MG/0.5 ML SYRINGE IVP PRN; LACTATED RINGERS 1,000 ML IV SCH; LIDOCAINE 1% (10MG/ML) FOR IV START INTRADERMA PRN; LIDOCAINE 2% (PF) 20 MG/ML 5 ML VIAL INHALATION ONE; LIDOCAINE VISCOUS 300 MG/15 ML CUP MUCOUS MEM ONE; MIDAZOLAM 2 MG/2 ML VIAL IV PRN; ONDANSETRON 4 MG/2 ML VIAL IVP ONE; SODIUM CHLORIDE 0.9% 1,000 ML IV SCH
[2020-07-11] MEDS ORDERED: LACTATED RINGERS 1,000 ML IV ONE ×2 (09:59→13:11)
[2020-07-11] MEDS ORDERED: HYDROmorphone 0.5 MG/0.5 ML SYRINGE IVP ONE ×2 (10:30→10:42)
[2020-07-11] MEDS ORDERED: MIDAZOLAM 2 MG/2 ML VIAL IVP ONE (10:55)
--- NOTE | 2020-07-11 11:36 | CT ---
EXAMINATION TYPE: CT Chest ivy Davila Protocol DATE OF EXAM: 07/11/2020 COMPARISON: CTA chest May 05, 2020 HISTORY: Bronchial navigation. CT DLP: 653 mGycm Automated exposure control for dose reduction was used. CT chest without contrast in inspiration and expiration technique. FINDINGS: Exam is for bronchoscopy planning and not for diagnostic purposes. Images obtained redemons trate moderate underlying emphysematous change greatest in the upper lungs. There is persistent poste rior right hilar mass or neoplasm extending superiorly. There is persistent abnormal right infrahilar adenopathy and borderline enlarged subcarinal adenopathy. Right-sided volume loss with tracheal kaity ft remains present. IMPRESSION: As above.
[2020-07-11] MEDS ORDERED: PROPOFOL 10 MG/ML 20 ML VIAL IV ONE (12:18)
[2020-07-11] MEDS ORDERED: LIDOCAINE 1% INJ 10MG/ML (20 ML MDV) ONE (12:18)
[2020-07-11] MEDS ORDERED: SUCCINYLCHOLINE CHLORIDE 100 MG/5 ML SYR IV ONE (12:18)
[2020-07-11 13:27] VITALS: TEMP 97.5
--- NOTE | 2020-07-11 13:58 | XR ---
EXAMINATION TYPE: XR chest 1V portable DATE OF EXAM: 07/11/2020 Comparison: 05/08/2020 Clinical History: 55-year-old male [employer] Findings: Heart normal size. Aorta within normal limits. Redemonstrated right hilar/suprahilar mass. There is w orsening consolidation throughout the right upper lobe. Hyperinflation suggests background emphysema. No appreciable pneumothorax. Impression: COPD with known right suprahilar mass. Worsening consolidation throughout the right upper lobe as com pared to 05/08/2020 but probably relatively similar to the [facility] protocol CT chest performed earlier today. No appreciable pneumothorax.
[2020-07-11 14:19] VITALS: BP 112/77; PULSE 90; RESP 19
[2020-07-11 17:18] LABS: Appearance,BF Blood Tinged
[2020-07-11 17:21] LABS: Nucleated Cells, Body Fluid 0 /uL; RBC, Body Fluid 23900 /uL
--- NOTE | 2020-07-11 20:35 | OP ---
OPERATIVE REPORT PULMONARY/CRITICAL CARE PROCEDURE NOTE: PROCEDURE: Electromagnetic navigational bronchoscopy. PREOPERATIVE DIAGNOSIS: Rule out lung cancer. POSTOPERATIVE DIAGNOSIS: Rule out lung cancer. General anesthesia was provided to the patient by [employer] ENFORCEMENT OFFICER and the anesthesiologist. The patient's procedure was done in room #1. There was informed consent and universal timeout. OPERATORS: 1. Dr. Saleem. 2. Dr. Marcus. 3. Dr. Villaseñor. PROCEDURE DESCRIPTION: After the patient was adequately sedated and anesthetized, the bronchoscope was pushed through the bronchoscope adapter connected to the endotracheal tube. Once through, the lungs were evaluated. The left side looked completely normal. This included the left upper lobe proper, the lingula, and left lower lobe and all its segments. The right middle lobe and right lower lobe looked completely normal. This included the 2 segments of the right middle lobe and the 5 segments of the right lower lobe. There was obvious bulging of the distal right mainstem into the right upper lobe area. There was a large mass or tumor that was noted in the right upper lobe. A portion of it was removed. Under electromagnetic guidance, we did multiple endobronchial and transbronchial biopsies of the right upper lobe as well as transbronchial needle aspiration biopsies of the right upper lobe. Subsequent to that, brushes and washes were performed. There was no immediate complication. There was minimal bleeding. There was good sampling. There was good localization. Afterwards, we ensured hemostasis and the bronchoscope was withdrawn. The patient will be recovered. There was no immediate complication. The procedure took place in endoscopy room #1. MMCARYLL / DEXTERN: [id number] /
== END 2020-07-11 14:45 | disposition home or self-care (01) ==
LOC: ORWHC2ENDO 09:41
PROVIDERS: ATTEND Internal Medicine Critical Care Medicine
DX: C34.11 Malignant neoplasm of upper lobe, right bronchus or lung (principal); J44.9 Chronic obstructive pulmonary disease, unspecified; U07.1 COVID-19; K21.9 Gastro-esophageal reflux disease without esophagitis; J18.9 Pneumonia, unspecified organism; Z79.51 Long term (current) use of inhaled steroids; Z79.899 Other long term (current) drug therapy; Z80.9 Family history of malignant neoplasm, unspecified; Z87.891 Personal history of nicotine dependence
CPT/HCPCS: 88104; 88108; 88305; 88173; 89050; 88342; 87252; 88341; 87070; 87205; 87116; 87102; 87206; 71045; 71250; 31628; 31629; 31623; 31627; 31624; J2250; J2405; J2001; J0330; J2704; J1170

== ENCOUNTER → 2020-07-19 | Outpatient (CLI) | payer OTHER ==
--- NOTE | 2020-07-19 13:32 | PE ---
EXAMINATION TYPE: PET CT fusion skull to thigh DATE OF EXAM: 07/19/2020 COMPARISON: Chest CT May 05, 2020 HISTORY: Newly diagnosed lung cancer right lung on bronchoscopy 8 days ago. TECHNIQUE: Following the intravenous administration of 12.41 mCi of F-18 FDG, whole body images are performed from the skull base to the midthigh. Images are reviewed on the computer in the coronal, a xial, and sagittal planes. Reconstructed rotating images are created on independent workstation and reviewed on the computer. A localization and attenuation correction CT is performed in conjunction with the PET scan. SCAN: Initial Scan FINDINGS: SKULL BASE AND NECK: Mild asymmetric prominence to right submandibular gland with mild hypermetaboli c uptake, correlate for inflammatory process. No significant surrounding fat stranding. Symmetric upt reina at level of vocal cords presumed physiologic No suspicious hypermetabolic uptake. CHEST, MEDIASTINUM, AND HILAR REGION: Background Moderate to advanced underlying emphysematous change redemonstrated with persistent large right hilar mass having posterior along with superior greater t high inferior extension. Mass measures roughly 9.1 x 8.6 cm axial image 86. Craniocaudal extension rou ghly 9 cm. The max SUV is 10.42. Suspicious hypermetabolic uptake right tracheobronchial level axial image 89 could reflect adenopathy or extension of large neoplasm, Max SUV is 5.2. No suspicious nodules or hypermetabolic uptake in the left lung. ABDOMEN AND PELVIS: Suspicious vague 3.2 cm hypoechoic hypermetabolic lesion in the spleen axial imag e 141, max SUV is 10.3. No adrenal masses. Normal excretion. Nonspecific mild/moderate uptake in the right colon centered near the cecum should be correlated with colonoscopy in patient of this age if h as not been performed in last 3 years. The Max SUV is 6.93 at this level. No additional areas of abno rmal hypermetabolic uptake. OSSEOUS STRUCTURES: No suspicious hypermetabolic uptake. OTHER CT: Simple appearing 2.9 cm thin-walled cyst anteriorly right kidney. Mild calcified plaque abd ominal aorta extends into branch vessels. Prostate gland mildly is large in size consistent with BPH. Transitional type vertebra lumbosacral junction. IMPRESSION: Large right hilar mass or neoplasm with possible right tracheobronchial adenopathy. Suspi cious splenic lesion. Nonspecific bowel uptake greatest at cecum as detailed above.
== END | disposition home or self-care (01) ==
LOC: RADPETMAIN 11:07
PROVIDERS: ATTEND Internal Medicine Critical Care Medicine
DX: R91.1 Solitary pulmonary nodule (principal)
CPT/HCPCS: 78815; A9552

== ENCOUNTER → 2020-07-23 | Outpatient (CLI) | payer OTHER | END | disposition home or self-care (01) | LOC: CPPFTMAIN 09:51 | PROVIDERS: ATTEND Internal Medicine Critical Care Medicine | DX: J44.9 Chronic obstructive pulmonary disease, unspecified (principal) | CPT/HCPCS: 94060; 94726; 94729 ==

== ENCOUNTER → 2020-07-31 | Outpatient (CLI) | payer OTHER ==
--- NOTE | 2020-08-01 00:40 | MR ---
EXAMINATION TYPE: MR brain wo/w con DATE OF EXAM: 07/31/2020 COMPARISON: None HISTORY: History of lung cancer, mets CONTRAST: Standard multiplanar, multisequence MRI departmental protocol utilizing 6.0 mL intravenous Gadavist g adolinium contrast. Ventricles have normal size. There is mild cerebral cortical atrophy. There is no mass effect nor mid line shift. There is no evidence of intracranial hemorrhage. Diffusion images show no evidence of an acute cortical infarct. The FLAIR images show a few scattered 2 to 3 mm foci of increased signal at the rollins-white matter jaida ction of both cerebral hemispheres. Total number is proximally 5. The corpus callosum is intact. Sella turcica is normal. Brainstem is intact. The contrast images show no pathologic enhancement. There is normal enhancement of the venous sinuses . Pituitary stalk is in the midline. Optic chiasm appears normal. There is no evidence of sellar mass . IMPRESSION: There are a few scattered small white matter high signal foci of doubtful significance and could rela te to minimal microvascular ischemia. No evidence of cortical infarct. No evidence of intracranial me tastatic disease.
== END | disposition home or self-care (01) ==
LOC: RADMRIMAIN 11:39
PROVIDERS: ATTEND Radiology Radiation Oncology
DX: C34.11 Malignant neoplasm of upper lobe, right bronchus or lung (principal)
CPT/HCPCS: 70553; A9585

== ENCOUNTER → 2020-10-11 | Outpatient (CLI) | payer OTHER ==
--- NOTE | 2020-10-14 13:06 | PE ---
EXAMINATION TYPE: PET CT fusion skull to thigh DATE OF EXAM: 10/11/2020 COMPARISON: Prior PET/CT July 19, 2020 HISTORY: Right-sided non-small lung cancer diagnosed July 2020 on chemotherapy currently. TECHNIQUE: Following the intravenous administration of 13.26 mCi of F-18 FDG, whole body images are performed from the skull base to the midthigh. Images are reviewed on the computer in the coronal, a xial, and sagittal planes. Reconstructed rotating images are created on independent workstation and reviewed on the computer. A localization and attenuation correction CT is performed in conjunction with the PET scan. Blood glucose level equals 93. SCAN: Subsequent Scan FINDINGS: SKULL BASE AND NECK: Symmetric uptake at level of vocal cords presumed physiologic is redemonstrated . No new suspicious hypermetabolic uptake. CHEST, MEDIASTINUM, AND HILAR REGION: Background Moderate to advanced underlying emphysematous change is redemonstrated. Persistent large posterior right mid lung mass . Mass measures roughly 8.2 x 7.3 cm axial image 91 with central hypodensity and peripheral hypermetabolic uptake versus 9.1 x 8.6 cm a xial image 86 prior study. Craniocaudal extension roughly 9 cm. Similar to prior The max SUV is 12.73 slightly more prominent versus max SUV of 10.42 on prior study. Some right lateral obstructive atele ctasis is redemonstrated. Suspicious hypermetabolic uptake right tracheobronchial level consistent with adenopathy or extension of neoplasm is not identified on current study. No suspicious new areas of abnormal hypermetabolic uptake in the thorax. ABDOMEN AND PELVIS: Persistent slightly more defined and larger hypoechoic hypermetabolic lesion in t he spleen axial image 147 measuring 4.2 cm long axis current study versus 3.2 cm prior study, max SUV is 10.02 versus 10.3 on prior study. No new adrenal masses. Normal excretion. Focal hypermetabolic uptake left pelvis image 205 is presume d along course of left ureter. No new areas of abnormal hypermetabolic uptake. OSSEOUS STRUCTURES: No new areas of suspicious hypermetabolic uptake. OTHER CT: Simple appearing 2.9 cm thin-walled cyst anteriorly right kidney. Mild calcified plaque abd ominal aorta extends into branch vessels. Prostate gland remains mildly enlarged in size consistent w ith BPH. Transitional type vertebra lumbosacral junction redemonstrated. IMPRESSION: Some diminished size to the large right lung mass or neoplasm. Larger more defined spleni c metastatic lesion however noted. Max SUV is not greater than 30% increased or decreased in either l esion though is noted increased in the right lung lesion. No new metastatic neoplastic involvement id entified. Findings consistent with overall stable metabolic disease.
== END | disposition home or self-care (01) ==
LOC: RADPETMAIN 12:46
PROVIDERS: ATTEND Internal Medicine Hematology & Oncology
DX: C34.31 Malignant neoplasm of lower lobe, right bronchus or lung (principal); C78.89 Secondary malignant neoplasm of other digestive organs
CPT/HCPCS: 78815; A9552

== ENCOUNTER → 2020-11-08 | Outpatient (CLI) | payer OTHER ==
[2020-11-08 19:26] LABS: African American GFR (CKD) 130.3 (60.0-200.0); Anion Gap 9.1 mmol/L (4.00-12.00); BUN/Creat Ratio 18.33 Ratio (12.00-20.00); Calcium 8.3 mg/dL (8.7-10.3); Carbon Dioxide 26.9 mmol/L (21.6-31.8); Non-African American GFR(CKD) 112.4 (60.0-200.0); Potassium 4.1 mmol/L (3.5-5.5)
[2020-11-08 20:51] LABS: Basophils # (A) 0.02 X 10*3/uL (0.00-0.10); Basophils % (A) 0.4 %; Eosinophils # (A) 0.01 X 10*3/uL (0.04-0.35); Eosinophils % (A) 0.2 %; HGB 8.5 g/dL (13.0-17.0); Lymphocytes # (A) 0.48 X 10*3/uL (0.90-5.00); Lymphocytes % (A) 9.6 %; MCH 28.5 pg (27.0-32.0); MCHC 31.5 g/dL (32.0-37.0); MCV 90.6 fL (80.0-97.0); Mean Platelet Volume 9.4 fL (9.5-12.2); Monocytes # (A) 0.93 X 10*3/uL (0.20-1.00); Monocytes % (A) 18.6 %; Neutrophils # (A) 3.54 X 10*3/uL (1.80-7.70); Neutrophils % (A) 70.8 %; Platelet Count 276 X 10*3/uL (140-440); RBC 2.98 X 10*6/uL (4.40-5.60); RDW 19.9 % (11.5-14.5)
== END | disposition home or self-care (01) ==
LOC: LABWHC1 13:17
PROVIDERS: ATTEND Radiology Radiation Oncology
DX: C34.11 Malignant neoplasm of upper lobe, right bronchus or lung (principal); C77.1 Secondary and unspecified malignant neoplasm of intrathoracic lymph nodes; Z92.21 Personal history of antineoplastic chemotherapy
CPT/HCPCS: 36415; 80048; 82150; 83690; 85025

== ENCOUNTER 2020-11-19 21:04 | Emergency (ER) | payer OTHER ==
[2020-11-19] MEDS ORDERED: SODIUM CHLORIDE 0.9% 1,000 ML IV ONE (21:20)
[2020-11-19] MEDS ORDERED: METOCLOPRAMIDE 5 MG/ML 2 ML VIAL IVP STA (21:20)
--- NOTE | 2020-11-19 21:55 | ED ---
Nausea/Vomiting/Diarrhea HPI - General Chief complaint: Nausea/Vomiting/Diarrhea Stated complaint: nauseau, loss of appetite Time Seen by Provider: 11/19/20 21:20 Source: patient, family Mode of arrival: ambulatory Limitations: no limitations - History of Present Illness Initial comments: This patient is a 55-year-old man here to be evaluated for nausea, vomiting, and poor oral intake. The patient has history of diagnosis of non-small cell lung cancer, he states his stage IV. He had completed chemotherapy states proximally 3 weeks ago and has been having radiation therapy, currently in his second week. The patient states that he is just not tolerating oral intake. He wants to eat but since he tries she will have severe nausea and some vomiting. He has had abdominal pain from time to time but none tonight. Patient not having fever or chills. No productive cough. No dyspnea. He does have some right sided chest pain that he states is been present and he feels is due to the cancer. He states that his home medications are managing this. MD complaint: nausea, vomiting -: week(s) Description of Vomiting: food contents Associated Abdominal Pain: Yes Location: diffuse Severity: moderate Quality: aching Consistency: intermittent, now resolved Improves with: none Worsens with: eating Associated Symptoms: nausea/vomiting - Related Data Home Medications Medication Instructions Recorded Confirmed Albuterol Nebulized [Ventolin 2.5 mg INHALATION RT-Q6H PRN 07/08/20 11/19/20 Nebulized] Fluticasone/Umeclidin/Vilanter 1 puff INHALATION RT-DAILY 11/19/20 11/19/20 [Treleamberly Ellipta 200-62.5-25] Folic Acid 1 mg PO DAILY 11/19/20 11/19/20 HYDROcodone/APAP 10-325MG [[place] 1 tab PO Q6H PRN 11/19/20 11/19/20 10-325] Morphine Sulfate ER [Ms Contin] 30 mg PO Q12HR 11/19/20 11/19/20 Naloxegol Oxalate [Movantik] 25 mg PO DAILY 11/19/20 11/19/20 Omeprazole 40 mg PO DAILY 11/19/20 11/19/20 PARoxetine [Paxil] 20 mg PO DAILY 11/19/20 11/19/20 Previous Rx's Medication Instructions Recorded Metoclopramide [Reglan] 10 mg PO Q6HR PRN #15 tab 11/20/20 Allergies Allergy/AdvReac Type Severity Reaction Status Date / Time No Known Allergies Allergy Verified 11/19/20 22:00 Review of Systems ROS Statement: Those systems with pertinent positive or pertinent negative responses have been documented in the HPI. ROS Other: All systems not noted in ROS Statement are negative. Constitutional: Denies: fever, chills Respiratory: Denies: cough, dyspnea, wheezes Gastrointestinal: Reports: as per HPI, abdominal pain, nausea, vomiting, constipation (Intermittent). Denies: diarrhea, hematemesis, melena, hematochezia Genitourinary: Denies: dysuria, hematuria, testicular pain Musculoskeletal: Reports: back pain (Chronic) Skin: Denies: rash Neurological: Denies: headache, weakness, numbness Past Medical History Past Medical History: Cancer, COPD, GERD/Reflux Additional Past Medical History / Comment(s): back pain, Lung Cancer History of Any Multi-Drug Resistant Organisms: None Reported Past Surgical History: No Surgical Hx Reported Past Anesthesia/Blood Transfusion Reactions: No Reported Reaction Additional Past Anesthesia/Blood Transfusion Reaction / Comment(s): has never had anesthesia Past Psychological History: No Psychological Hx Reported Smoking Status: Former smoker Past Alcohol Use History: None Reported Past Drug Use History: None Reported - Past Family History Father Additional Family Medical History / Comment(s): Lung Cancer Mother Family Medical History: No Reported History General Exam Limitations: no limitations General appearance: alert, in no apparent distress, cachectic Head exam: Present: atraumatic, normocephalic Eye exam: Present: normal appearance. Absent: scleral icterus, conjunctival injection ENT exam: Present: mucous membranes dry Neck exam: Present: normal inspection Respiratory exam: Present: normal lung sounds bilaterally. Absent: respiratory distress, wheezes, rales, rhonchi, stridor Cardiovascular Exam: Present: regular rate, normal rhythm, normal heart sounds. Absent: systolic murmur, diastolic murmur, rubs, gallop GI/Abdominal exam: Present: soft. Absent: distended, tenderness, guarding, rebound, rigid, mass Extremities exam: Present: normal inspection, normal capillary refill. Absent: pedal edema, calf tenderness Back exam: Present: normal inspection. Absent: CVA tenderness (R), CVA tenderne ss (L) Neurological exam: Present: alert Skin exam: Present: warm, dry, intact, normal color. Absent: rash Course Vital Signs 11/19/20 11/19/20 11/19/20 21:12 22:12 23:05 Temperature 98.1 F Pulse Rate 97 80 83 Respiratory 18 16 16 Rate Blood Pressure 104/69 96/58 83/62 O2 Sat by Pulse 95 96 90 L Oximetry Medical Decision Making - Lab Data Result diagrams: 11/19/20 22:06 11/19/20 22:06 Lab Results 11/19/20 11/19/20 Range/Units 22:06 22:06 WBC 4.4 (3.8-10.6) k/uL RBC 2.73 L (4.30-5.90) m/uL Hgb 8.1 L (13.0-17.5) gm/dL Hct 24.2 L (39.0-53.0) % MCV 88.7 (80.0-100.0) fL MCH 29.5 (25.0-35.0) pg MCHC 33.2 (31.0-37.0) g/dL RDW 17.6 H (11.5-15.5) % Plt Count 401 (150-450) k/uL MPV 7.1 Neutrophils % 79 % Lymphocytes % 8 % Monocytes % 9 % Eosinophils % 1 % Basophils % 0 % Neutrophils # 3.4 (1.3-7.7) k/uL Lymphocytes # 0.4 L (1.0-4.8) k/uL Monocytes # 0.4 (0-1.0) k/uL Eosinophils # 0.0 (0-0.7) k/uL Basophils # 0.0 (0-0.2) k/uL Hypochromasia Slight Poikilocytosis Slight Anisocytosis Slight Sodium 134 L (137-145) mmol/L Potassium 3.6 (3.5-5.1) mmol/L Chloride 98 (98-107) mmol/L Carbon Dioxide 29 (22-30) mmol/L Anion Gap 7 mmol/L BUN 8 L (9-20) mg/dL Creatinine 0.49 L (0.66-1.25) mg/dL Est GFR (CKD-EPI)AfAm >90 (>60 ml/min/1.73 sqM) Est GFR (CKD-EPI)NonAf >90 (>60 ml/min/1.73 sqM) Glucose 124 H (74-99) mg/dL Calcium 8.5 (8.4-10.2) mg/dL Total Bilirubin 0.2 (0.2-1.3) mg/dL AST 20 (17-59) U/L ALT 12 (4-49) U/L Alkaline Phosphatase 71 (38-126) U/L Total Protein 6.2 L (6.3-8.2) g/dL Albumin 2.9 L (3.5-5.0) g/dL Disposition Clinical Impression: Vomiting Disposition: HOME SELF-CARE Condition: Good Instructions (If sedation given, give patient instructions): Acute Nausea and Vomiting (ED) Prescriptions: Metoclopramide [Reglan] 10 mg PO Q6HR PRN #15 tab PRN Reason: Nausea Is patient prescribed a controlled substance at d/c from ED?: No Referrals: Shayne Cabello DO [Primary Care Provider] - 1-2 days
[2020-11-19] MEDS ORDERED: HYDROcodone/APAP 10-325MG 1 EACH TAB PO ONE (22:07)
[2020-11-19 22:14] VITALS: RESP 16
[2020-11-19 22:15] LABS: Anisocytosis Slight; Basophils % (A) 0 %; Eosinophils % (A) 1 %; HCT 24.2 % (39.0-53.0); HGB 8.1 gm/dL (13.0-17.5); Hypochromasia Slight; Lymphocytes # (A) 0.4 k/uL (1.0-4.8); Lymphocytes % (A) 8 %; MCH 29.5 pg (25.0-35.0); MCHC 33.2 g/dL (31.0-37.0); MCV 88.7 fL (80.0-100.0); Mean Platelet Volume 7.1; Monocytes # (A) 0.4 k/uL (0-1.0); Monocytes % (A) 9 %; Neutrophils # (A) 3.4 k/uL (1.3-7.7); Neutrophils % (A) 79 %; Platelet Count 401 k/uL (150-450); Poikilocytosis Slight; RBC 2.73 m/uL (4.30-5.90); RDW 17.6 % (11.5-15.5); WBC 4.4 k/uL (3.8-10.6)
[2020-11-19 22:32] LABS: ALT 12 U/L (4-49); AST 20 U/L (17-59); African American GFR (CKD) >90 (>60 ml/min/1.73 sqM); Albumin 2.9 g/dL (3.5-5.0); Alkaline Phosphatase 71 U/L (38-126); Anion Gap 7 mmol/L; Blood Urea Nitrogen 8 mg/dL (9-20); Calcium 8.5 mg/dL (8.4-10.2); Carbon Dioxide 29 mmol/L (22-30); Chloride 98 mmol/L (98-107); Glucose 124 mg/dL (74-99); Non-African American GFR(CKD) >90 (>60 ml/min/1.73 sqM); Potassium 3.6 mmol/L (3.5-5.1); Sodium 134 mmol/L (137-145); Total Bilirubin 0.2 mg/dL (0.2-1.3); Total Protein 6.2 g/dL (6.3-8.2)
--- NOTE | 2020-11-20 00:01 | CT ---
EXAMINATION TYPE: CT abdomen pelvis wo con DATE OF EXAM: 11/19/2020 COMPARISON: PET CT scan 10/11/2020 HISTORY: nausea and pain. history of CA. ruleout kidney stone. no prior on PACS CT DLP: 320.1 mGycm Automated exposure control for dose reduction was used. Images obtained from the diaphragm to the floor the pelvis without contrast. The lung bases show mild subsegmental atelectasis in the right lower lobe. Heart size is normal. Ther e is no pericardial effusion. Liver is intact. Spleen is enlarged with irregular hypodense area in th e central spleen measures 5.5 cm. Stomach is intact. There is no pancreatic mass. Gallbladder is part ly contracted. There is no adrenal mass. There is a 3 cm cortical cyst anterior right kidney. There is no hydronephr osis. There is no retroperitoneal adenopathy. Ureters are not dilated. The bladder distends smoothly. There is some prostate calcification. Prostate is somewhat enlarged and measures 5 cm. There is no i nguinal hernia. There is no free fluid in the pelvis. There is no mesenteric edema. There is no ascites or free air. There is no bowel obstruction. Lumbar vertebra show normal spacing and alignment. Posterior elements are intact. There is no donald tricia fracture. Bony pelvis is intact. The hip joints appear intact. Abdominal aorta is atheromatous. IMPRESSION: No renal stone or obstruction. No acute abnormality within the abdomen pelvis. Splenic mass unchanged compared to old exam. Right renal cyst unchanged.
[2020-11-20 00:44] VITALS: BP 131/71; PULSE 77; TEMP 98.2
== END 2020-11-20 00:45 | disposition home or self-care (01) ==
LOC: EC 21:04
DX: R11.2 Nausea with vomiting, unspecified (principal); R63.0 Anorexia; R10.84 Generalized abdominal pain; R07.89 Other chest pain; K59.00 Constipation, unspecified; G89.29 Other chronic pain; M54.9 Dorsalgia, unspecified; J44.9 Chronic obstructive pulmonary disease, unspecified; K21.9 Gastro-esophageal reflux disease without esophagitis; Z87.891 Personal history of nicotine dependence; Z79.51 Long term (current) use of inhaled steroids
CPT/HCPCS: 36415; 80053; 85025; 74176; 99285; 96374; 96361; J2765

== ENCOUNTER 2020-12-25 17:07 | Emergency (ER) | payer OTHER ==
[2020-12-25] MEDS ORDERED: SODIUM CHLORIDE 0.9% 1,000 ML IV STA (17:49)
[2020-12-25] MEDS ORDERED: ONDANSETRON 4 MG/2 ML VIAL IVP STA (17:49)
[2020-12-25 18:30] LABS: Basophils % (A) 1 %; Eosinophils # (A) 0.3 k/uL (0-0.7); Eosinophils % (A) 6 %; HCT 34.6 % (39.0-53.0); Lymphocytes # (A) 0.3 k/uL (1.0-4.8); Lymphocytes % (A) 6 %; MCH 30.1 pg (25.0-35.0); MCHC 33.8 g/dL (31.0-37.0); MCV 89.1 fL (80.0-100.0); Mean Platelet Volume 7.1; Monocytes # (A) 0.3 k/uL (0-1.0); Monocytes % (A) 7 %; Neutrophils # (A) 3.8 k/uL (1.3-7.7); Neutrophils % (A) 79 %; Platelet Count 279 k/uL (150-450); RBC 3.88 m/uL (4.30-5.90); RDW 15.4 % (11.5-15.5); WBC 4.8 k/uL (3.8-10.6)
[2020-12-25 18:41] LABS: ALT 16 U/L (4-49); AST 21 U/L (17-59); African American GFR (CKD) >90 (>60 ml/min/1.73 sqM); Albumin 3.1 g/dL (3.5-5.0); Alkaline Phosphatase 72 U/L (38-126); Amylase 71 U/L (30-110); Anion Gap 6 mmol/L; Blood Urea Nitrogen 13 mg/dL (9-20); Calcium 8.4 mg/dL (8.4-10.2); Carbon Dioxide 29 mmol/L (22-30); Chloride 98 mmol/L (98-107); Glucose 124 mg/dL (74-99); Lipase 29 U/L (23-300); Non-African American GFR(CKD) >90 (>60 ml/min/1.73 sqM); Potassium 4.1 mmol/L (3.5-5.1); Sodium 133 mmol/L (137-145); Total Bilirubin 0.2 mg/dL (0.2-1.3); Total Protein 6.2 g/dL (6.3-8.2)
--- NOTE | 2020-12-25 18:47 | ED ---
General Adult HPI - General Source: patient, RN notes reviewed Mode of arrival: wheelchair Limitations: no limitations <Michael Burris - Last Filed: 12/25/20 19:03> <Ester Ashford - Last Filed: 12/26/20 00:02> - General Chief complaint: Weakness Stated complaint: Nausea/weakness Time Seen by Provider: 12/25/20 17:41 - History of Present Illness Initial comments: patient is a 55-year-old male that presents to the emergency department for rehydration therapy at his oncologist request. Patient notes that he has been able to really eat or drink anything and much quantity. He was a well's. 55-year-old male in no apparent distress or pain while sitting up in bed during the exam and interview. He notes that he just hasn't had much of an appetite since doing chemo or radiation area he denied any other issues or complaints at this time. He denied any chest pain shortness of breath headache nausea vomit ing diarrhea constipation fever fatigue chills. (Michael Burris) - Related Data Home Medications Medication Instructions Recorded Confirmed Albuterol Nebulized [Ventolin 2.5 mg INHALATION RT-Q6H PRN 07/08/20 12/25/20 Nebulized] Fluticasone/Umeclidin/Vilanter 1 puff INHALATION RT-DAILY 11/19/20 12/25/20 [Trelegy Ellipta 200-62.5-25] Folic Acid 1 mg PO DAILY 11/19/20 12/25/20 HYDROcodone/APAP 10-325MG [[place] 1 tab PO Q6H PRN 11/19/20 12/25/20 10-325] Morphine Sulfate ER [Ms Contin] 30 mg PO Q12HR 11/19/20 12/25/20 Naloxegol Oxalate [Movantik] 25 mg PO DAILY 11/19/20 12/25/20 Omeprazole 40 mg PO DAILY 11/19/20 12/25/20 PARoxetine [Paxil] 20 mg PO DAILY 11/19/20 12/25/20 Ibuprofen [Motrin] 400 mg PO TID PRN 12/25/20 12/25/20 Lactulose 20 gm PO DAILY PRN 12/25/20 12/25/20 Ondansetron Odt [Zofran Odt] 4 mg PO Q6H PRN 12/25/20 12/25/20 Allergies Allergy/AdvReac Type Severity Reaction Status Date / Time No Known Allergies Allergy Verified 12/25/20 22:14 Review of Systems ROS Other: All systems not noted in ROS Statement are negative. <BurrisMichael - Last Filed: 12/25/20 19:03> ROS Other: All systems not noted in ROS Statement are negative. <Ester Ashford - Last Filed: 12/26/20 00:02> ROS Statement: Those systems with pertinent positive or pertinent negative responses have been documented in the HPI. Past Medical History Past Medical History: Cancer, COPD, GERD/Reflux Additional Past Medical History / Comment(s): back pain, Lung Cancer History of Any Multi-Drug Resistant Organisms: None Reported Past Surgical History: No Surgical Hx Reported Past Anesthesia/Blood Transfusion Reactions: No Reported Reaction Additional Past Anesthesia/Blood Transfusion Reaction / Comment(s): has never had anesthesia Past Psychological History: No Psychological Hx Reported Smoking Status: Former smoker Past Alcohol Use History: None Reported Past Drug Use History: None Reported - Past Family History Father Additional Family Medical History / Comment(s): Lung Cancer Mother Family Medical History: No Reported History <BurrisMichael - Last Filed: 12/25/20 19:03> General Exam Limitations: no limitations General appearance: alert, in no apparent distress Head exam: Present: atraumatic, normocephalic, normal inspection Eye exam: Present: normal appearance, PERRL, EOMI. Absent: scleral icterus, conjunctival injection, periorbital swelling Neck exam: Present: normal inspection Respiratory exam: Present: normal lung sounds bilaterally. Absent: respiratory distress, wheezes, rales, rhonchi, stridor Cardiovascular Exam: Present: regular rate, normal rhythm, normal heart sounds. Absent: systolic murmur, diastolic murmur, rubs, gallop, clicks GI/Abdominal exam: Present: soft, normal bowel sounds. Absent: distended, tenderness, guarding, rebound, rigid Extremities exam: Present: normal inspection, full ROM, normal capillary refill. Absent: tenderness, pedal edema, joint swelling, calf tenderness Neurological exam: Present: alert, oriented X3 Psychiatric exam: Present: normal affect, normal mood Skin exam: Present: warm, dry, intact, normal color. Absent: rash <Michael Burris - Last Filed: 12/25/20 19:03> Course Vital Signs 12/25/20 12/25/20 12/25/20 17:09 19:11 22:35 Temperature 98.2 F 98 F Pulse Rate 100 81 78 Respiratory 16 18 18 Rate Blood Pressure 98/66 101/66 144/84 O2 Sat by Pulse 95 98 97 Oximetry Medical Decision Making - Lab Data Result diagrams: 12/25/20 18:06 12/25/20 18:06 <Michael Burris - Last Filed: 12/25/20 19:03> - Lab Data Result diagrams: 12/25/20 18:06 12/25/20 18:06 <Ester Ashford - Last Filed: 12/26/20 00:02> - Medical Decision Making 55-year-old male presenting for rehydration per his oncologist request. Basic labs, 1 L normal saline, 4 mg of Zofran ordered. Labs unremarkable compared to baseline. Case discussed with Dr. Ashford (Michael Burris) Patient was seen and evaluated her reported feeling better after IV hydration was advised she needs to follow with GI for scope, was advised that he likely does not need a referral from primary care as he is 4 6 years old and has not ye t had colonoscopy needs to follow up for colonoscopy as well as endoscopy due to upper GI symptoms. Patient agreeable to plan for discharge home. (Ester Ashford) - Lab Data Lab Results 12/25/20 12/25/20 12/25/20 Range/Units 18:06 18:06 18:06 WBC 4.8 (3.8-10.6) k/uL RBC 3.88 L (4.30-5.90) m/uL Hgb 11.7 L D (13.0-17.5) gm/dL Hct 34.6 L (39.0-53.0) % MCV 89.1 (80.0-100.0) fL MCH 30.1 (25.0-35.0) pg MCHC 33.8 (31.0-37.0) g/dL RDW 15.4 (11.5-15.5) % Plt Count 279 (150-450) k/uL MPV 7.1 Neutrophils % 79 % Lymphocytes % 6 % Monocytes % 7 % Eosinophils % 6 % Basophils % 1 % Neutrophils # 3.8 (1.3-7.7) k/uL Lymphocytes # 0.3 L (1.0-4.8) k/uL Monocytes # 0.3 (0-1.0) k/uL Eosinophils # 0.3 (0-0.7) k/uL Basophils # 0.0 (0-0.2) k/uL Sodium 133 L (137-145) mmol/L Potassium 4.1 (3.5-5.1) mmol/L Chloride 98 (98-107) mmol/L Carbon Dioxide 29 (22-30) mmol/L Anion Gap 6 mmol/L BUN 13 (9-20) mg/dL Creatinine 0.59 L (0.66-1.25) mg/dL Est GFR (CKD-EPI)AfAm >90 (>60 ml/min/1.73 sqM) Est GFR (CKD-EPI)NonAf >90 (>60 ml/min/1.73 sqM) Glucose 124 H (74-99) mg/dL Calcium 8.4 (8.4-10.2) mg/dL Total Bilirubin 0.2 (0.2-1.3) mg/dL AST 21 (17-59) U/L ALT 16 (4-49) U/L Alkaline Phosphatase 72 (38-126) U/L Total Protein 6.2 L (6.3-8.2) g/dL Albumin 3.1 L (3.5-5.0) g/dL Amylase 71 (30-110) U/L Lipase 29 (23-300) U/L Urine Color Yellow Urine Appearance Clear (Clear) Urine pH 5.0 (5.0-8.0) Ur Specific [place] 1.031 (1.001-1.035) Urine Protein Trace H (Negative) Urine Glucose (UA) Negative (Negative) Urine Ketones Negative (Negative) Urine Blood Negative (Negative) Urine Nitrite Negative (Negative) Urine Bilirubin Negative (Negative) Urine Urobilinogen <2.0 (<2.0) mg/dL Ur Leukocyte Esterase Negative (Negative) Disposition <Michael Burris - Last Filed: 12/25/20 19:03> Is patient prescribed a controlled substance at d/c from ED?: No <Ester Ashford P - Last Filed: 12/26/20 00:02> Clinical Impression: Chronic abdominal pain Disposition: HOME SELF-CARE Condition: Stable Instructions (If sedation given, give patient instructions): Abdominal Pain (ED) Referrals: Shayne Cabello DO [Primary Care Provider] - 1-2 days Tara Ray MD [STAFF PHYSICIAN] - 1-2 days
[2020-12-25 18:55] LABS: HGB 11.7 gm/dL (13.0-17.5)
[2020-12-25 19:39] VITALS: RESP 18
--- NOTE | 2020-12-25 20:08 | XR ---
EXAMINATION TYPE: XR chest 2V DATE OF EXAM: 12/25/2020 COMPARISON: PET/CT 10/11/2020. Radiograph 07/11/2020 HISTORY: Weakness. TECHNIQUE: Frontal and lateral views of the chest are obtained. FINDINGS: There is redemonstration of large right upper lobe masslike opacity. There are new diffuse moderate interstitial opacities in the left upper lung. No significant pleural effusion, or pneumoth orax seen. The cardiac silhouette size is within normal limits. The osseous structures are intact. IMPRESSION: New diffuse interstitial opacities in the left upper lobe. Redemonstrated large right upper lobe mass.
[2020-12-25 21:26] LABS: Appearance,Urine Clear (Clear); Bilirubin,Urine Negative (Negative); Blood,Urine Negative (Negative); Color,Urine Yellow; Glucose,Urine (UA) Negative (Negative); Ketones,Urine Negative (Negative); Leukocyte Esterase,Urine Negative (Negative); Nitrite,Urine Negative (Negative); Protein,Urine Trace (Negative); Specific Gravity,Urine 1.031 (1.001-1.035); Urobilinogen,Urine <2.0 mg/dL (<2.0)
[2020-12-25 22:46] VITALS: BP 144/84; PULSE 78; TEMP 98
== END 2020-12-25 22:39 | disposition home or self-care (01) ==
LOC: EC 17:07
DX: G89.29 Other chronic pain (principal); R10.9 Unspecified abdominal pain; J44.9 Chronic obstructive pulmonary disease, unspecified; K21.9 Gastro-esophageal reflux disease without esophagitis; Z79.1 Long term (current) use of non-steroidal anti-inflammatories (NSAID); Z79.899 Other long term (current) drug therapy; Z87.891 Personal history of nicotine dependence; Z80.1 Family history of malignant neoplasm of trachea, bronchus and lung
CPT/HCPCS: 36415; 80053; 82150; 83690; 85025; 81003; 71046; 96374; 96361; 99285; J2405

== ENCOUNTER 2021-01-14 14:02 | Observation (INO) | payer OTHER ==
--- NOTE | 2021-01-14 14:30 | ED ---
Dizziness HPI - General Chief Complaint: Syncope Stated Complaint: Syncope Source: patient Mode of arrival: wheelchair Limitations: no limitations - History of Present Illness Initial Comments: 55-year-old male with past medical history of cancer who presents to the emergency department after he had a syncopal episode. patient is currently undergoing chemo and radiation for lung cancer. he was in outpatient ct when he had a syncopal episode. he states that he remembers finishing the study however was having difficulty breathing mask on and they kept asking him to hold his breath. he sat up and then attempted to stand up. he had a syncopal episode which was not witnessed. he hit the side of his head and bit his lip. patient also has a skin tear to the left wrist. he denies any chest pain previous to that incident. syncopal episodes in the past when he has had blood draws. no previous history of cardiac disease. denies any headaches or visual changes. no neck pain. A Team was called - accucheck performed concerning glucose of 100. Patient recommended to come to the emergency department for evaluation however he is very reluctant. No other pain in his extremities. No other alleviating, precipitating or modifying factors - Related Data Home Medications Medication Instructions Recorded Confirmed Albuterol Nebulized [Ventolin 2.5 mg INHALATION RT-Q6H PRN 07/08/20 01/14/21 Nebulized] Fluticasone/Umeclidin/Vilanter 1 puff INHALATION RT-DAILY 11/19/20 01/14/21 [Trelegy Ellipta 200-62.5-25] Folic Acid 1 mg PO DAILY 11/19/20 01/14/21 HYDROcodone/APAP 10-325MG [[place] 1 tab PO Q6H PRN 11/19/20 01/14/21 10-325] Morphine Sulfate ER [Ms Contin] 30 mg PO Q12HR 11/19/20 01/14/21 Naloxegol Oxalate [Movantik] 25 mg PO DAILY 11/19/20 01/14/21 Omeprazole 40 mg PO DAILY 11/19/20 01/14/21 PARoxetine [Paxil] 20 mg PO DAILY 11/19/20 01/14/21 Ibuprofen [Motrin] 400 mg PO TID PRN 12/25/20 01/14/21 Lactulose 20 gm PO DAILY PRN 12/25/20 01/14/21 Ondansetron Odt [Zofran Odt] 4 mg PO Q6H PRN 12/25/20 01/14/21 Allergies Allergy/AdvReac Type Severity Reaction Status Date / Time No Known Allergies Allergy Verified 01/14/21 14:10 Review of Systems ROS Statement: Those systems with pertinent positive or pertinent negative responses have been documented in the HPI. ROS Other: All systems not noted in ROS Statement are negative. Past Medical History Past Medical History: Cancer, COPD, GERD/Reflux Additional Past Medical History / Comment(s): back pain, Lung Cancer History of Any Multi-Drug Resistant Organisms: None Reported Past Surgical History: No Surgical Hx Reported Past Anesthesia/Blood Transfusion Reactions: No Reported Reaction Additional Past Anesthesia/Blood Transfusion Reaction / Comment(s): has never had anesthesia Past Psychological History: No Psychological Hx Reported Smoking Status: Former smoker Past Alcohol Use History: None Reported Past Drug Use History: None Reported - Past Family History Father Additional Family Medical History / Comment(s): Lung Cancer Mother Family Medical History: No Reported History General Exam Limitations: no limitations Course Vital Signs 01/14/21 01/14/21 01/14/21 14:07 16:12 16:47 Temperature 98.4 F Pulse Rate 83 82 Respiratory 16 18 Rate Blood Pressure 110/73 O2 Sat by Pulse 96 91 L Oximetry 01/14/21 01/14/21 01/14/21 16:57 17:04 20:45 Temperature Pulse Rate 84 89 71 Respiratory 18 16 16 Rate Blood Pressure 106/81 105/80 O2 Sat by Pulse 96 97 Oximetry EKG Findings - EKG Comments: EKG Findings:: EKG demonstrates her mouth and rhythm with a ventricular rate of 83. DC interval 154. QRS 86. QTC of 467. No acute ST segment elevations or depressions Medical Decision Making - Medical Decision Making Upon arrival patient was placed into room 28. History and physical exam is performed. He is only saturating 85% on room air. He is placed on 2 L of oxygen. Laboratory studies were conducted and a chest x-ray was performed due to hypoxia. Patient also went for a CT of his brain, cervical spine and face. Laboratory studies are reviewed and demonstrated d-dimer 1.46. Sodium 132. CT of the brain and facial bones demonstrate soft tissue swelling of the left cheek with no underlying fracture. Foraminal stenosis at C6 to 7. No acute intracranial hemorrhage. I did cleanse the patient's wound. Attempted to titrate the patient of oxygen however he saturates 85% when taken off the oxygen. He is placed on 4 L and improves to 92%. 2 to hypoxia, elevated d- dimer and inability to get a ventilation perfusion scan today I did recommend admission which patient did agree to. Spoke with Dr. Cazares. He does recommend that I speak with Dr. Saleem to question whether the patient should be heparinized. Zaid Saleem agrees to heparinization if the patient has no contraindications. I discussed the treatment plan with the patient. He did agree to admission. I spoke with Dr. Cazares who agreed to admit the patient. Patient remained in stable condition awaiting a bed on the floor - Lab Data Result diagrams: 01/14/21 14:44 01/14/21 14:44 Lab Results 01/14/21 01/14/21 01/14/21 Range/Units 14:44 14:44 14:44 WBC 5.3 (3.8-10.6) k/uL RBC 3.48 L (4.30-5.90) m/uL Hgb 10.6 L (13.0-17.5) gm/dL Hct 32.4 L (39.0-53.0) % MCV 93.3 (80.0-100.0) fL MCH 30.6 (25.0-35.0) pg MCHC 32.8 (31.0-37.0) g/dL RDW 16.1 H (11.5-15.5) % Plt Count 330 (150-450) k/uL MPV 7.9 Neutrophils % 83 % Lymphocytes % 9 % Monocytes % 3 % Eosinophils % 3 % Basophils % 0 % Neutrophils # 4.4 (1.3-7.7) k/uL Lymphocytes # 0.5 L (1.0-4.8) k/uL Monocytes # 0.2 (0-1.0) k/uL Eosinophils # 0.2 (0-0.7) k/uL Basophils # 0.0 (0-0.2) k/uL Hypochromasia Slight Poikilocytosis Slight Anisocytosis Slight Sodium 132 L (137-145) mmol/L Potassium 4.2 (3.5-5.1) mmol/L Chloride 97 L (98-107) mmol/L Carbon Dioxide 27 (22-30) mmol/L Anion Gap 8 mmol/L BUN 13 (9-20) mg/dL Creatinine 0.54 L (0.66-1.25) mg/dL Est GFR (CKD-EPI)AfAm >90 (>60 ml/min/1.73 sqM) Est GFR (CKD-EPI)NonAf >90 (>60 ml/min/1.73 sqM) Glucose 115 H (74-99) mg/dL Calcium 8.3 L (8.4-10.2) mg/dL Total Bilirubin 0.3 (0.2-1.3) mg/dL AST 43 (17-59) U/L ALT 19 (4-49) U/L Alkaline Phosphatase 105 (38-126) U/L Troponin I <0.012 (0.000-0.034) ng/mL Total Protein 6.2 L (6.3-8.2) g/dL Albumin 3.0 L (3.5-5.0) g/dL Disposition Clinical Impression: Syncope, Facial trauma, Concussion, Hypoxia, Lung cancer Disposition: ADMITTED IP TO THIS HOSP Condition: Stable Is patient prescribed a controlled substance at d/c from ED?: No Decision to Admit Reason: Admit from EC Decision Date: 01/14/21 Decision Time: 16:30
[2021-01-14] MEDS ORDERED: TOPICAL SKIN ADHESIVE 1 EACH AMP TOPICAL ONE (14:48)
[2021-01-14 14:52] LABS: Anisocytosis Slight; Basophils % (A) 0 %; Eosinophils # (A) 0.2 k/uL (0-0.7); Eosinophils % (A) 3 %; HCT 32.4 % (39.0-53.0); HGB 10.6 gm/dL (13.0-17.5); Hypochromasia Slight; Lymphocytes # (A) 0.5 k/uL (1.0-4.8); Lymphocytes % (A) 9 %; MCH 30.6 pg (25.0-35.0); MCHC 32.8 g/dL (31.0-37.0); MCV 93.3 fL (80.0-100.0); Mean Platelet Volume 7.9; Monocytes # (A) 0.2 k/uL (0-1.0); Monocytes % (A) 3 %; Neutrophils # (A) 4.4 k/uL (1.3-7.7); Neutrophils % (A) 83 %; Platelet Count 330 k/uL (150-450); Poikilocytosis Slight; RBC 3.48 m/uL (4.30-5.90); RDW 16.1 % (11.5-15.5); WBC 5.3 k/uL (3.8-10.6)
[2021-01-14 15:01] LABS: ALT 19 U/L (4-49); AST 43 U/L (17-59); African American GFR (CKD) >90 (>60 ml/min/1.73 sqM); Alkaline Phosphatase 105 U/L (38-126); Anion Gap 8 mmol/L; Blood Urea Nitrogen 13 mg/dL (9-20); Calcium 8.3 mg/dL (8.4-10.2); Carbon Dioxide 27 mmol/L (22-30); Chloride 97 mmol/L (98-107); Glucose 115 mg/dL (74-99); Non-African American GFR(CKD) >90 (>60 ml/min/1.73 sqM); Potassium 4.2 mmol/L (3.5-5.1); Sodium 132 mmol/L (137-145); Total Bilirubin 0.3 mg/dL (0.2-1.3); Total Protein 6.2 g/dL (6.3-8.2)
--- NOTE | 2021-01-14 15:14 | XR ---
EXAMINATION TYPE: XR chest 2V DATE OF EXAM: 01/14/2021 COMPARISON: 12/25/2020 INDICATION: Lung cancer, syncope TECHNIQUE: Frontal and lateral views of the chest are obtained. FINDINGS: The heart size is normal. The pulmonary vasculature is normal. There is prominence has diminished. There are increased lung markings in the right upper lung field. Diffuse increased opacity is present . Findings appear improved from comparison.. IMPRESSION: 1. Linear opacities and increased lung markings right upper lobe are nonspecific but improved from co mparison. 2. Previous pulmonary vascular prominence has resolved.
--- NOTE | 2021-01-14 15:20 | CT ---
EXAMINATION TYPE: CT brain meka haynes con DATE OF EXAM: 01/14/2021 COMPARISON: None HISTORY: Fall today with left sided facial injury. CT DLP: 982.1 mGycm, Automated exposure control for dose reduction was used. CONTRAST: Patient injected with 0 mL of Isovue 300. CT of the brain is performed utilizing 3 mm thick sections through the posterior fossa and 3 mm thick sections through the remaining calvarium. Study is performed within 24 hours of arrival to the hospital. No abnormal hyperdensity is present to suggest an acute intracranial hemorrhage. No mass lesion is evident. No acute infarcts are evident. Ventricles and sulci are appropriate for the patient age. Soft tissue swelling is over the left cheek and infraorbital region. No underlying fracture is eviden t. Paranasal sinuses and mastoid air cells within the [id number]-clov are clear. IMPRESSIONS: 1. Soft tissue swelling left cheek. No underlying fractures evident. CT cervical spine. COMPARISON: None CT of the cervical spine is performed in the axial plane at 2 mm thick sections. Reconstructed image s in the coronal, and sagittal plane are reviewed on the computer. No acute fractures are evident. Vertebral body alignment is normal. Mild disc space narrowing is present diffusely greater in the lower cervical spine. Vertebral body heights are preserved. No spinal canal stenosis is evident. Posterior endplate spurring is present C5, C6, and C7. Preverteb ral space and posterior spinal lamellar line is intact Uncovertebral joint hypertrophy is present at C6-7 greater on the right with moderate left and severe right foraminal stenosis IMPRESSIONS: 1. Mild degenerative changes. 2. Foraminal stenosis C6-7.
--- NOTE | 2021-01-14 15:28 | CT ---
EXAMINATION TYPE: CT facial bones wo con DATE OF EXAM: 01/14/2021 COMPARISON: None HISTORY: Fall today with left sided facial injury. CT DLP: 982.1 mGycm CONTRAST: 0 mL of Isovue 300 The bones are examined in the axial plane at 2 mm thick sections. Reconstructed images in the barroso l plane were obtained. There is dental amalgam scatter artifact The maxillary sinuses are clear. The ethmoid air cells are clear. The sphenoid sinuses are clear. The frontal sinuses are clear. The septum is evaluated. There is septal deviation to the left. The ostiomeatal units are patent. Amor air cells are present bilaterally. Zygomatic arches are intact. Greater wings of sphenoid are normal. Soft tissue swelling is over the l eft cheek and over the infraorbital region. Underlying osseous structures are intact. The globes are symmetrical. IMPRESSIONS: 1. Soft tissue swelling left cheek. 2. No acute fractures
[2021-01-14] MEDS ORDERED: MORPHINE SULFATE 4 MG/ML SYRINGE IVP STA (16:22)
[2021-01-14] MEDS ORDERED: IPRATROPIUM-ALBUTEROL 3 ML NEB INHALATION STA (16:23)
[2021-01-14] MEDS ORDERED: NALOXONE 0.4 MG/ML 1 ML VIAL IV PRN (16:30)
[2021-01-14] MEDS ORDERED: HEPARIN SODIUM 1,000 UN/ML (10ML VL) IV PRN (17:22)
[2021-01-14] MEDS ORDERED: HEPARIN SOD,PORK IN 0.45% NACL 25,000 UNIT in 0.45% NACL 1 250ML.BAG IV SCH (18:00)
[2021-01-14 18:56] LABS: Partial Thromboplastin Time 22.8 sec (22.0-30.0); Prothrombin Time 10.8 sec (9.0-12.0)
[2021-01-14] MEDS ORDERED: LACTULOSE 200 GM/300 ML (FROM 1/2 GAL JUG) PO PRN (21:37)
[2021-01-14] MEDS ORDERED: HYDROcodone/APAP 10-325MG 1 EACH TAB PO PRN (21:37)
[2021-01-14] MEDS ORDERED: IBUPROFEN 400 MG TAB PO PRN (21:37)
[2021-01-14] MEDS ORDERED: ONDANSETRON ODT 4 MG TAB PO PRN (21:37)
[2021-01-14] MEDS ORDERED: ALBUTEROL NEBULIZED 2.5 MG/3 ML INHALATION PRN (21:37)
--- NOTE | 2021-01-14 22:05 | P.HPIM ---
History of Present Illness H&P Date: 01/14/21 Chief Complaint: Past out History of presenting complaint: This is a very pleasant 55-year-old patient of Dr. Cabello. Patient is also followed by Dr. Dolan of the instructional technology coordinator, Dr. Daniel the oncologist and Dr. Floyd Medina from radiation oncology. I will order a year ago patient was diagnosed with lung cancer. Has only had radiation treatment and chemotherapy. Currently being given immunotherapy. Today patient was ordered to have a computed tomography scan for a follow-up when he was getting off the table and getting his pants on he became dizzy and fell forwards on his face. No some bleeding and bruising on the side of the face. Patient is past her for a few minutes. For last few days patient has not pain eating well has had nausea and also been having weight loss. In fact he just started that on the corner. No swelling of the legs. No chest pain or palpitation. Chronic stable medical conditions include anxiety, GERD,. Pain In the spine from metastatic disease. Patient's is at bedside. Patient states his lung cancer had gone to the liver, lymph nodes and the spleen. Review of systems: GEN.: Tired EYES: None HEENT: None NECK: None RESPIRATORY: Has been short of breath for 2 days. No cough no wheezing. CARDIOVASCULAR: None GASTROINTESTINAL: None GENITOURINARY: None MUSCULOSKELETAL: Back pain LYMPHATICS: None HEMATOLOGICAL: None PSYCHIATRY: None NEUROLOGICAL: None Past medical history to include: Lung cancer, COPD, GERD, Social history: Patient smoked a pack a day for about 37 years, stopped 3 years ago. 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 . No alcohol. Family history: Lung cancer Physical examination: VITAL SIGNS: 98.4, 83, 16, 110/73, 96% on 2 L GENERAL: BMI 16.9, sitting up in bed, awake. EYES: Pupils equal. Conjunctiva palel. HEENT: External appearance of nose and ears normal, oral cavity grossly normal bruising around the left eye in the perioperative mitral area.. NECK: JVD not raised; masses not palpable. HEART: First and second heart sounds are normal; no edema. LUNGS: Respiratory rate increased; decreased breath sounds. ABDOMEN: Soft, nontender, liver spleen not palpable, no masses palpable. PSYCH: [Alert and oriented x3; mood and affect slightly anxious l. NEUROLOGICAL: Cranial nerves grossly intact; no facial asymmetry, power and sensation grossly intact. MUSCULAR skeletal: Loss of muscle mass LYMPHATICS: No lymph nodes palpable in the axilla and neck INVESTIGATIONS, reviewed in the clinical context: WBC 5.3 hemoglobin 10.6 platelets 313 potassium 4.2 creatinine 0.5 for Albumin 3.0 EKG tracing personally reviewed by me-normal sinus rhythm, rate 83 Chest x-ray film personally reviewed by me-prominent lung markings in the right upper lobe Face CT: No fractures reported CT of the cervical spine: Forearm and a stenosis C6-C7. Mild DJD Computed tomography scan of the chest abdomen pelvis: 7.9 cm irregular hypodensity within the spleen compatible with an enlarging metastatic lesion. Demadex size suspected To lesion posterior to right apex lung Assessment and plan: -Patient is been short of breath for last 2 days. No obvious wheezing. Possibly COPD exacerbation. Rule out PE DuoNeb. In his steroids. Long-acting beta agonist. -Lung cancer with metastatic disease Patient status post chemotherapy and radiation treatment. Being followed by Dr. Daniel. -Syncope, could be vasovagal. Rule out orthostatic Check orthostatics -Rule out PE IV heparin. Pulmonary consultation for the evaluation. Possibly Computed tomography scan in 24 hours. -Anxiety not otherwise specified Paxil -Left facial bruising secondary to fall. No fracture. Eyes back as needed -GERD Protonic -Back pain from malignancy Continue with mobile intake and MS Contin -Moderate protein calorie malnutrition, from decreased oral intake. BMI 16.9. Add ensure Patient was started on IV heparin. Pulmonary consulted. DuoNeb. Steroids. Home medications resumed. Orthostatic blood pressure. Care was discussed with the patient and . Past Medical History Past Medical History: Cancer, COPD, GERD/Reflux Additional Past Medical History / Comment(s): back pain, Lung Cancer History of Any Multi-Drug Resistant Organisms: None Reported Past Surgical History: No Surgical Hx Reported Past Anesthesia/Blood Transfusion Reactions: No Reported Reaction Additional Past Anesthesia/Blood Transfusion Reaction / Comment(s): has never had anesthesia Past Psychological History: No Psychological Hx Reported Smoking Status: Former smoker Past Alcohol Use History: None Reported Past Drug Use History: None Reported - Past Family History Father Additional Family Medical History / Comment(s): Lung Cancer Mother Family Medical History: No Reported History Medications and Allergies Home Medications Medication Instructions Recorded Confirmed Type Albuterol Nebulized [Ventolin 2.5 mg INHALATION RT-Q6H PRN 07/08/20 01/14/21 History Nebulized] Fluticasone/Umeclidin/Vilanter 1 puff INHALATION RT-DAILY 11/19/20 01/14/21 History [Trelegy Ellipta 200-62.5-25] Folic Acid 1 mg PO DAILY 11/19/20 01/14/21 History HYDROcodone/APAP 10-325MG [[place]leigh 1 tab PO Q6H PRN 11/19/20 01/14/21 History 10-325] Morphine Sulfate ER [Ms Contin] 30 mg PO Q12HR 11/19/20 01/14/21 History Naloxegol Oxalate [Movantik] 25 mg PO DAILY 11/19/20 01/14/21 History Omeprazole 40 mg PO DAILY 11/19/20 01/14/21 History PARoxetine [Paxil] 20 mg PO DAILY 11/19/20 01/14/21 History Ibuprofen [Motrin] 400 mg PO TID PRN 12/25/20 01/14/21 History Lactulose 20 gm PO DAILY PRN 12/25/20 01/14/21 History Ondansetron Odt [Zofran Odt] 4 mg PO Q6H PRN 12/25/20 01/14/21 History Allergies Allergy/AdvReac Type Severity Reaction Status Date / Time No Known Allergies Allergy Verified 01/14/21 14:10 Physical Exam Vitals: Vital Signs Temp Pulse Resp BP Pulse Ox 01/14/21 20:45 71 16 105/80 97 01/14/21 17:04 89 16 106/81 96 01/14/21 16:57 84 18 01/14/21 16:47 82 18 01/14/21 16:12 91 L 01/14/21 14:07 98.4 F 83 16 110/73 96 Intake and Output 01/14/21 01/14/21 01/14/21 06:59 14:59 22:59 Other: Weight 47.627 kg Results CBC & Chem 7: 01/14/21 14:44 01/14/21 14:44 Labs: Abnormal Lab Results - Last 24 Hours (Table) 07/20/21 07/20/21 07/20/21 Range/Units 14:44 14:44 18:09 RBC 3.48 L (4.30-5.90) m/uL Hgb 10.6 L (13.0-17.5) gm/dL Hct 32.4 L (39.0-53.0) % RDW 16.1 H (11.5-15.5) % Lymphocytes # 0.5 L (1.0-4.8) k/uL D-Dimer 1.46 H (<0.60) mg/L FEU Sodium 132 L (137-145) mmol/L Chloride 97 L (98-107) mmol/L Creatinine 0.54 L (0.66-1.25) mg/dL Glucose 115 H (74-99) mg/dL Calcium 8.3 L (8.4-10.2) mg/dL Total Protein 6.2 L (6.3-8.2) g/dL Albumin 3.0 L (3.5-5.0) g/dL
[2021-01-15] MEDS: IPRATROPIUM-ALBUTEROL 3 ML NEB INHALATION SCH ×4 (02:43→16:40)
[2021-01-15] MEDS: FORMOTEROL FUMARATE 20 MCG/2 ML NEBU INHALATION SCH ×2 (02:43→07:01)
[2021-01-15] MEDS: BUDESONIDE 1 MG/2 ML NEBU INHALATION SCH ×2 (02:43→07:01)
[2021-01-15 03:16] LABS: African American GFR (CKD) >90 (>60 ml/min/1.73 sqM); Anion Gap 5 mmol/L; Blood Urea Nitrogen 15 mg/dL (9-20); Calcium 8.2 mg/dL (8.4-10.2); Carbon Dioxide 31 mmol/L (22-30); Chloride 99 mmol/L (98-107); Glucose 101 mg/dL (74-99); Non-African American GFR(CKD) >90 (>60 ml/min/1.73 sqM); Potassium 4.3 mmol/L (3.5-5.1); Sodium 135 mmol/L (137-145)
[2021-01-15 03:29] LABS: Partial Thromboplastin Time 24.9 sec (22.0-30.0); Prothrombin Time 10.5 sec (9.0-12.0)
[2021-01-15 03:38] LABS: Anisocytosis Slight; HCT 29.6 % (39.0-53.0); Hypochromasia Slight; MCH 29.2 pg (25.0-35.0); MCHC 30.7 g/dL (31.0-37.0); Mean Platelet Volume 7.7; Platelet Count 251 k/uL (150-450); Poikilocytosis Slight; RBC 3.11 m/uL (4.30-5.90); WBC 2.5 k/uL (3.8-10.6)
[2021-01-15 04:14] LABS: HGB 9.1 gm/dL (13.0-17.5)
[2021-01-15 05:56] LABS: Band Neutrophils % 6 %; Eosinophils # (M) 0.13 k/uL (0-0.7); Lymphocytes # (M) 0.48 k/uL (1.0-4.8); Monocytes # (M) 0.23 k/uL (0-1.0); Neutrophils % (M) 61 %; Nucleated Red Blood Cells 0 /100 WBC (0-0); Polychromasia Present; Total Cells Counted 100
[2021-01-15] MEDS ORDERED: SYMBICORT 80-4.5 MCG INHALER INHALATION SCH (08:00)
--- NOTE | 2021-01-15 08:51 | NM ---
EXAMINATION TYPE: NM pul vent and perfuse DATE OF EXAM: 01/15/2021 COMPARISON: NONE HISTORY: hypoxia, active cancer TECHNIQUE: Utilizing inhalation of 36.8 mCi Tc 99m DTPA aerosol and intravenous injection of 4.7 mCi of Tc 99m MAA, ventilation and perfusion images are acquired post injection in multiple projections. FINDINGS: Extensive heterogenous uptake throughout the lungs on the ventilation portion of the study. There is a matched perfusion defect right upper lobe large in size. IMPRESSION: Indeterminate probability for pulmonary embolism.
[2021-01-15] MEDS ORDERED: NON FORMULARY DRUG (Naloxegol Oxalate [Movantik] 25 MG Tablet) PO SCH (09:00)
[2021-01-15] MEDS ORDERED: PARoxetine 20 MG TAB PO SCH (09:00)
[2021-01-15] MEDS ORDERED: MORPHINE SULFATE ER 30 MG TABLET PO SCH (09:00)
[2021-01-15] MEDS ORDERED: PANTOPRAZOLE 40 MG TABLET PO SCH (09:00)
[2021-01-15] MEDS ORDERED: FOLIC ACID 1 MG TAB PO SCH (09:00)
[2021-01-15] MEDS ORDERED: HEPARIN SODIUM 1,000 UN/ML (10ML VL) IVP ONE (10:42)
--- NOTE | 2021-01-15 10:56 | P.CNPUL ---
History of Present Illness Consult date: 01/15/21 Requesting physician: Manolo Cazares Reason for consult: pulmonary embolism Chief complaint: Syncopal episode, COPD, lung cancer. History of present illness: Pulmonary consult dated 01/15/2021. This is a 55-year-old male, who is in the hospital yesterday because of coming in for a CAT scan to determine whether or not treatment for his lung cancer has been effective. He has a history of non-small cell lung cancer, diagnosed by myself and Dr. Marcus this year, and he underwent chemotherapy and radiation therapy, and now is on immune therapy. His doctors including Dr. Morrison and Dr. Medina. Anyway, after the scan was done while he was standing up, he apparently became dizzy and lightheaded and had a syncopal episode, and fell and injured his facial area and left wrist. X-rays were negative. He was brought to the emergency room after an "A" was called, and he was evaluated by Dr. Calabrese. Apparently, the patient mentioned that he was a bit short of breath, and there was some concern that maybe the patient had a pulmonary embolus some. Patient did have a CAT scan of the chest, which was the surveillance computed tomography scan that was being done for lung cancer follow-up. It was not a CT angiogram. The patient was admitted to the hospital placed on IV heparin. Subsequent to that, the patient had a ventilation perfusion lung scan which was indeterminate. A lung scan this patient was a bad decision because his chest x- ray and CAT scan is abnormal, so the ventilation perfusion lung scan was going to be nondiagnostic. Today, we will get a CT angiogram to put the issue at rest. The patient appears not to be short of breath at this time. Current lab data includes a white count 2.5, hemoglobin 9.1, hematocrit 29.6, and platelet count 251,000. PT, INR, and PTT were normal, but the d-dimer was 1.46. Sodium 135, potassium 4.3, chlorides 99, CO2 31, anion gap 5, BUN 15, and creatinine 0.69. The chest x-ray, head and cervical spine CT, chest CT, and lung scan, are all reviewed. Review of Systems REVIEW OF SYSTEMS: CONSTITUTIONAL: [Negative.] NEUROLOGIC: Syncope. HEENT: [ Negative.] CARDIAC: [Negative.] PULMONARY: Mild shortness of breath. GI: [Negative.] : [Negative.] RHEUMATOLOGIC: [ Negative.] IMMUNOLOGIC: [ Negative.] ENDOCRINE: [Negative. ] DERMATOLOGIC: [Negative.] Past Medical History Past Medical History: Cancer, COPD, GERD/Reflux Additional Past Medical History / Comment(s): back pain, Lung Cancer History of Any Multi-Drug Resistant Organisms: None Reported Past Surgical History: No Surgical Hx Reported Past Anesthesia/Blood Transfusion Reactions: No Reported Reaction Additional Past Anesthesia/Blood Transfusion Reaction / Comment(s): has never had anesthesia Past Psychological History: No Psychological Hx Reported Smoking Status: Former smoker Past Alcohol Use History: None Reported Past Drug Use History: None Reported - Past Family History Father Additional Family Medical History / Comment(s): Lung Cancer Mother Family Medical History: No Reported History Medications and Allergies Home Medications Medication Instructions Recorded Confirmed Type Albuterol Nebulized [Ventolin 2.5 mg INHALATION RT-Q6H PRN 07/08/20 01/14/21 History Nebulized] Fluticasone/Umeclidin/Vilanter 1 puff INHALATION RT-DAILY 11/19/20 01/14/21 History [Trelegy Ellipta 200-62.5-25] Folic Acid 1 mg PO DAILY 11/19/20 01/14/21 History HYDROcodone/APAP 10-325MG [[place] 1 tab PO Q6H PRN 11/19/20 01/14/21 History 10-325] Morphine Sulfate ER [Ms Contin] 30 mg PO Q12HR 11/19/20 01/14/21 History Naloxegol Oxalate [Movantik] 25 mg PO DAILY 11/19/20 01/14/21 History Omeprazole 40 mg PO DAILY 11/19/20 01/14/21 History PARoxetine [Paxil] 20 mg PO DAILY 11/19/20 01/14/21 History Ibuprofen [Motrin] 400 mg PO TID PRN 12/25/20 01/14/21 History Lactulose 20 gm PO DAILY PRN 12/25/20 01/14/21 History Ondansetron Odt [Zofran Odt] 4 mg PO Q6H PRN 12/25/20 01/14/21 History Allergies Allergy/AdvReac Type Severity Reaction Status Date / Time No Known Allergies Allergy Verified 01/14/21 14:10 Physical Exam Osteopathic Statement: *. No significant issues noted on an osteopathic structural exam other than those noted in the History and Physical/Consult. Vitals: Vital Signs Temp Pulse Pulse Resp BP BP BP 01/15/21 07:20 84 01/15/21 07:12 80 01/15/21 07:07 01/15/21 07:01 76 01/15/21 05:47 97.7 F 68 16 92/61 01/14/21 22:30 77 103/66 114/70 01/14/21 20:45 71 16 105/80 01/14/21 17:04 89 16 106/81 01/14/21 16:57 84 18 01/14/21 16:47 82 18 01/14/21 16:12 01/14/21 14:07 98.4 F 83 16 110/73 BP Pulse Ox 01/15/21 07:20 01/15/21 07:12 01/15/21 07:07 92 L 01/15/21 07:01 01/15/21 05:47 94 L 01/14/21 22:30 102/67 01/14/21 20:45 97 01/14/21 17:04 96 01/14/21 16:57 01/14/21 16:47 01/14/21 16:12 91 L 01/14/21 14:07 96 Intake and Output 01/14/21 01/15/21 01/15/21 22:59 06:59 14:59 Intake Total 240 522.767 47.984 Balance 240 522.767 47.984 Intake: Intake, IV Titration 42.767 47.984 Amount Heparin Sod,Pork in 0.45% 42.767 47.984 NaCl 25,000 unit In 0.45 % NaCl 1 250ml.bag @ 12 UNITS/KG/HR 5.715 mls/hr IV .Q24H KERRIE Rx#: [id number] Oral 240 480 Other: # Voids 1 2 Weight 47.627 kg No acute distress, oriented 3. 2 L saturation 92%. HEENT examination is grossly unremarkable. Left facial bruising is noted. Neck supple. Full range of motion. No adenopathy thyromegaly or neck vein distention. Cardiovascular examination reveals regular rhythm rate. S1-S2 normal. No S3 or S4. No discernible murmur noted. Heart rate is 84 bpm. Lungs reveal clear but diminished breath sounds. No significant wheezes, rhonchi, or crackles. Breath sounds are equal bilaterally. Abdomen soft bowel sounds are heard. No masses or tenderness. Extremities are intact. No cyanosis clubbing or edema. Skin is without rash or lesion. Neurologic examination is brief but nonfocal. Results - Laboratory Findings CBC and BMP: 01/15/21 02:20 01/15/21 02:20 PT/INR, D-dimer PT 10.5 sec (9.0-12.0) 01/15/21 02:20 INR 1.0 (<1.2) 01/15/21 02:20 D-Dimer 1.46 mg/L FEU (<0.60) H 01/14/21 18:09 Abnormal lab findings: Abnormal Labs 01/14/21 01/14/21 01/14/21 14:44 14:44 18:09 WBC RBC 3.48 L Hgb 10.6 L Hct 32.4 L MCHC RDW 16.1 H Lymphocytes # 0.5 L Lymphocytes # (Manual) D-Dimer 1.46 H Sodium 132 L Chloride 97 L Carbon Dioxide Creatinine 0.54 L Glucose 115 H Calcium 8.3 L Total Protein 6.2 L Albumin 3.0 L 01/15/21 01/15/21 02:20 02:20 WBC 2.5 L RBC 3.11 L Hgb 9.1 L D Hct 29.6 L MCHC 30.7 L RDW 16.0 H Lymphocytes # Lymphocytes # (Manual) 0.48 L D-Dimer Sodium 135 L Chloride Carbon Dioxide 31 H Creatinine Glucose 101 H Calcium 8.2 L Total Protein Albumin - Diagnostic Findings Chest x-ray: image reviewed CT scan - chest: image reviewed Assessment and Plan Assessment: Rule out acute pulmonary embolism. Syncope, of unclear etiology. It may be vasovagal in nature. Non-small cell lung cancer, recently diagnosed by electromagnetic navigational bronchoscopy, status post chemoradiation, and currently on immunotherapy. Metastatic non-small cell lung cancer, with significant lesion within the spleen. History of COPD from prior heavy tobacco use. History of gastroesophageal reflux disease. Plan: Plan dated 01/15/2021. The patient will have a CT angiogram today, to either rule in or rule out pulmonary embolism. If the CAT scan is negative, the patient could be discharged home. At the CAT scan is positive, the patient can still be discharged home, but she be discharged home on a factor X a inhibitor such as Eliquis. Additional recommendations and suggestions are forthcoming. We will continue to follow. No additional recommendations are made. Clinically, the patient looks well. The ventilation/perfusion lung scan was predictably going to be nondiagnostic. Time with Patient: Greater than 30
[2021-01-15] MEDS: IPRATROPIUM 0.5 MG/2.5 ML NEBU INHALATION SCH ×3 (11:04→16:40)
--- NOTE | 2021-01-15 11:57 | P.CRDCN ---
History of Present Illness History of present illness: HISTORY OF PRESENTING ILLNESS This is a pleasant 55-year-old male past medical history significant for lung cancer status post chemotherapy, radiation therapy and is now on immunotherapy. He denies prior history of coronary artery disease and does not follow in the office with a tie in hand. We have been asked to see in consultation for syncope. He was here in the hospital yesterday for a follow-up computed tomography scan as recommended by his oncology team. He finished his scan without incident. When he was done he was getting dressed buttoning his pants when he started to feel acutely lightheaded and dizzy. The next thing he remembers is waking up on the floor. He states this has happened to him previously in the past and is usually related to medical procedures, blood draws or IV starts. He has had no further episodes since that time. He also states that he was possibly mildly short of breath during the procedure due to having to wear a mask. He underwent a VQ scan secondary to elevated d-dimer that is read as intermediate probability for pulmonary embolism. He is currently maintained on IV heparin. He denies symptoms of chest pain or palpitations surrounding this episode. Orthostatic vital signs unremarkable. DIAGNOSTICS EKG reveals sinus mechanism with left axis deviation heart rate of 83. Telemetry tracings indicate sinus mechanism with no acute arrhythmia or significant pauses. Chest xray reveals linear opacity is an increased lung markings of the right upper lobe compared to previous have mildly improved and pulmonary vascular prom inence has resolved compared to previous study. Laboratory reviewed, WBC 2.5, hemoglobin 9.1, platelets 251, d-dimer 1.46, sodium 135, potassium 4.3, creatinine 0.69 and troponin negative 1. He takes no daily cardiac medications. REVIEW OF SYSTEMS At the time of my exam: CONSTITUTIONAL: Denies fever or chills. CARDIOVASCULAR: Denies chest pain, shortness of breath, orthopnea, PND or palpitations. RESPIRATORY: Denies cough. GASTROINTESTINAL: Denies abdominal pain, diarrhea, constipation, nausea or vomiting. MUSCULOSKELETAL: Denies myalgias. NEUROLOGIC: Denies numbness, tingling, headacbe or weakness. ENDOCRINE: Denies fatigue, weight change, polydipsia or polyurina. GENITOURINARY: Denies burning, hematuria or urgency with micturation. HEMATOLOGIC: Denies history of anemia or bleeding. PHYSICAL EXAMINATION Blood pressure 92/61 heart rate 84 afebrile and maintaining oxygen saturation on nasal cannula. CONSTITUTIONAL: No apparent distress. HEENT: Head is normocephalic. Pupils are equal, round. Sclerae anicteric. Mucous membranes of the mouth are moist. No JVD. No carotid bruit. CHEST EXAMINATION: Lungs are clear to auscultation. No chest wall tenderness is noted on palpation or with deep breathing. Diminished bilaterally. HEART EXAMINATION: Regular rate and rhythm. S1, S2 heard. No murmurs, gallops or rub. ABDOMEN: Soft, nontender. Positive bowel sounds. EXTREMITIES: 2+ peripheral pulses, no lower extremity edema and no calf tenderness. NEUROLOGIC EXAMINATION: Patient is awake, alert and oriented x3. ASSESSMENT Syncope, likely vasovagal Lung cancer Elevated d-dimer PLAN Syncopal episode secondary to vasovagal reaction. No evidence of significant arrhythmia or pauses. Obtain 2-D echocardiogram and Doppler study to assess cardiac structure and function. If echocardiogram is normal he can be discharged from a cardiac perspective. Pulmonary is following secondary to abnormal VQ scan. Thank you kindly for this consultation. Nurse Practitioner note has been reviewed, I agree with a documented findings and plan of care. Patient was seen and examined. Past Medical History Past Medical History: Cancer, COPD, GERD/Reflux Additional Past Medical History / Comment(s): back pain, Lung Cancer History of Any Multi-Drug Resistant Organisms: None Reported Past Surgical History: No Surgical Hx Reported Past Anesthesia/Blood Transfusion Reactions: No Reported Reaction Additional Past Anesthesia/Blood Transfusion Reaction / Comment(s): has never had anesthesia Past Psychological History: No Psychological Hx Reported Smoking Status: Former smoker Past Alcohol Use History: None Reported Past Drug Use History: None Reported - Past Family History Father Additional Family Medical History / Comment(s): Lung Cancer Mother Family Medical History: No Reported History Medications and Allergies Home Medications Medication Instructions Recorded Confirmed Type Albuterol Nebulized [Ventolin 2.5 mg INHALATION RT-Q6H PRN 07/08/20 01/14/21 History Nebulized] Fluticasone/Umeclidin/Vilanter 1 puff INHALATION RT-DAILY 11/19/20 01/14/21 History [Trelegy Ellipta 200-62.5-25] Folic Acid 1 mg PO DAILY 11/19/20 01/14/21 History HYDROcodone/APAP 10-325MG [[place] 1 tab PO Q6H PRN 11/19/20 01/14/21 History 10-325] Morphine Sulfate ER [Ms Contin] 30 mg PO Q12HR 11/19/20 01/14/21 History Naloxegol Oxalate [Movantik] 25 mg PO DAILY 11/19/20 01/14/21 History Omeprazole 40 mg PO DAILY 11/19/20 01/14/21 History PARoxetine [Paxil] 20 mg PO DAILY 11/19/20 01/14/21 History Ibuprofen [Motrin] 400 mg PO TID PRN 12/25/20 01/14/21 History Lactulose 20 gm PO DAILY PRN 12/25/20 01/14/21 History Ondansetron Odt [Zofran Odt] 4 mg PO Q6H PRN 12/25/20 01/14/21 History Allergies Allergy/AdvReac Type Severity Reaction Status Date / Time No Known Allergies Allergy Verified 01/14/21 14:10 Physical Exam Vitals: Vital Signs Temp Pulse Pulse Resp BP BP BP 01/15/21 07:20 84 01/15/21 07:12 80 01/15/21 07:07 01/15/21 07:01 76 01/15/21 05:47 97.7 F 68 16 92/61 01/14/21 22:30 77 103/66 114/70 01/14/21 20:45 71 16 105/80 01/14/21 17:04 89 16 106/81 01/14/21 16:57 84 18 01/14/21 16:47 82 18 01/14/21 16:12 01/14/21 14:07 98.4 F 83 16 110/73 BP Pulse Ox 01/15/21 07:20 01/15/21 07:12 01/15/21 07:07 92 L 01/15/21 07:01 01/15/21 05:47 94 L 01/14/21 22:30 102/67 01/14/21 20:45 97 01/14/21 17:04 96 01/14/21 16:57 01/14/21 16:47 01/14/21 16:12 91 L 01/14/21 14:07 96 Intake and Output 01/14/21 01/15/21 01/15/21 22:59 06:59 14:59 Intake Total 240 522.767 Balance 240 522.767 Intake: Intake, IV Titration 42.767 Amount Heparin Sod,Pork in 0.45% 42.767 NaCl 25,000 unit In 0.45 % NaCl 1 250ml.bag @ 12 UNITS/KG/HR 5.715 mls/hr IV .Q24H [facility] Rx#: [id number] Oral 240 480 Other: # Voids 1 2 Weight 47.627 kg Results 01/15/21 02:20 01/15/21 02:20 Cardiac Enzymes 01/14/21 01/14/21 Range/Units 14:44 14:44 AST 43 (17-59) U/L Troponin I <0.012 (0.000-0.034) ng/mL Coagulation 01/14/21 01/15/21 Range/Units 18:38 02:20 PT 10.8 10.5 (9.0-12.0) sec APTT 22.8 24.9 (22.0-30.0) sec CBC 01/14/21 01/15/21 Range/Units 14:44 02:20 WBC 5.3 2.5 L (3.8-10.6) k/uL RBC 3.48 L 3.11 L (4.30-5.90) m/uL Hgb 10.6 L 9.1 L D (13.0-17.5) gm/dL Hct 32.4 L 29.6 L (39.0-53.0) % Plt Count 330 251 (150-450) k/uL Comprehensive Metabolic Panel 01/14/21 01/15/21 Range/Units 14:44 02:20 Sodium 132 L 135 L (137-145) mmol/L Potassium 4.2 4.3 (3.5-5.1) mmol/L Chloride 97 L 99 (98-107) mmol/L Carbon Dioxide 27 31 H (22-30) mmol/L BUN 13 15 (9-20) mg/dL Creatinine 0.54 L 0.69 (0.66-1.25) mg/dL Glucose 115 H 101 H (74-99) mg/dL Calcium 8.3 L 8.2 L (8.4-10.2) mg/dL AST 43 (17-59) U/L ALT 19 (4-49) U/L Alkaline Phosphatase 105 (38-126) U/L Total Protein 6.2 L (6.3-8.2) g/dL Albumin 3.0 L (3.5-5.0) g/dL Current Medications Generic Name Dose Route Start Last Admin Trade Name Freq PRN Reason Stop Dose Admin Hydrocodone Bitart/Acetaminophen 1 each 01/14/21 21:37 Hydrocodone/Apap 10-325mg 1 Each Tab PO Q6H PRN Pain Albuterol Sulfate 2.5 mg 01/14/21 21:37 Albuterol Nebulized 2.5 Mg/3 Ml INHALATION RT-Q6H PRN Shortness Of Breath Albuterol/Ipratropium 3 ml 01/14/21 22:00 01/15/21 07:01 Ipratropium-Albuterol 3 Ml Neb INHALATION 3 ml RT-QID KERRIE Administration Budesonide 1 mg 01/14/21 22:00 01/15/21 07:01 Budesonide 1 Mg/2 Ml Nebu INHALATION 1 mg RT-BID KERRIE Administration Folic Acid 1 mg 01/15/21 09:00 Folic Acid 1 Mg Tab PO DAILY KERRIE Formoterol Fumarate 20 mcg 01/14/21 22:00 01/15/21 07:01 Formoterol Fumarate 20 Mcg/2 Ml Nebu INHALATION 20 mcg RT-BID KERRIE Administration Heparin Sodium (Porcine) 0 unit 01/14/21 17:22 01/15/21 03:53 Heparin Sodium 1,000 Un/Ml (10ml Vl) IV 2,381 unit PER PROTOCOL PRN Administration Low PTT Protocol Heparin Sodium/Sodium Chloride 250 mls @ 5.715 mls/hr 01/14/21 18:00 01/15/21 03:54 25,000 unit/ Sodium Chloride IV 15 units/kg/hr .Q24H KERRIE 7.144 mls/hr Titration Protocol 12 UNITS/KG/HR Ibuprofen 400 mg 01/14/21 21:37 Ibuprofen 400 Mg Tab PO TID PRN Pain Ipratropium [place] 0.5 mg 01/15/21 08:00 Ipratropium 0.5 Mg/2.5 Ml Nebu INHALATION RT-QID KERRIE Lactulose 20 gm 01/14/21 21:37 Lactulose 200 Gm/300 Ml (From 1/2 Gal Jug) PO DAILY PRN Constipation Morphine Sulfate 30 mg 01/15/21 09:00 Morphine Sulfate Er 30 Mg Tablet PO Q12HR [facility] Protocol Naloxone HCl 0.2 mg 01/14/21 16:30 Naloxone 0.4 Mg/Ml 1 Ml Vial IV Q2M PRN Opioid Reversal Non-Formulary Medication 25 mg 01/15/21 09:00 Naloxegol Oxalate [Movantik] PO DAILY [facility] Ondansetron HCl 4 mg 01/14/21 21:37 Ondansetron Odt 4 Mg Tab PO Q6H PRN Nausea Pantoprazole Sodium 40 mg 01/15/21 09:00 Pantoprazole 40 Mg Tablet PO DAILY [facility] Paroxetine HCl 20 mg 01/15/21 09:00 Paroxetine 20 Mg Tab PO DAILY [facility] Intake and Output 01/14/21 01/15/21 01/15/21 22:59 06:59 14:59 Intake Total 240 522.767 Balance 240 522.767 Intake: Intake, IV Titration 42.767 Amount Heparin Sod,Pork in 0.45% 42.767 NaCl 25,000 unit In 0.45 % NaCl 1 250ml.bag @ 12 UNITS/KG/HR 5.715 mls/hr IV .Q24H [facility] Rx#: [id number] Oral 240 480 Other: # Voids 1 2 Weight 47.627 kg 01/15/21 02:20 01/15/21 02:20
[2021-01-15 11:59] VITALS: RESP 18; TEMP 97.8
[2021-01-15 12:00] VITALS: BP 97/63
--- NOTE | 2021-01-15 12:32 | ECHOF ---
Referral Reason:syncope MEASUREMENTS -------- HEIGHT: 167.6 cm WEIGHT: 47.6 kg BP: 110/73 RVIDd: 3.0 cm (< 3.3) IVSd: 1.0 cm (0.6 - 1.1) LVIDd: 2.9 cm (3.9 - 5.3) LVPWd: 1.1 cm (0.6 - 1.1) IVSs: 1.3 cm LVIDs: 2.0 cm LVPWs: 1.4 cm LAESV Index (A-L): 20.77 ml/m Ao Diam: 3.6 cm (2.0 - 3.7) AV Cusp: 2.4 cm (1.5 - 2.6) MV E Marcellus: 0.54 m/s MV DecT: 160 ms MV A Marcellus: 0.76 m/s MV E/A Ratio: 0.71 RAP: 5.00 mmHg RVSP: 31.53 mmHg FINDINGS -------- Sinus rhythm. This was a technically adequate study. Parasternal and apical views unable to be obtained. Entire study performed from subcostal window. The left ventricular size is normal. Left ventricular wall thickness is normal. Overall left vent ricular systolic function is normal with, an EF between 55 - 60 %. The right ventricle is normal in size. Normal LA size by volume 22+/-6 ml/m2. The right atrial size is normal. Interatrial and interventricular septum intact. There is no evidence of aortic regurgitation. There is no evidence of aortic stenosis. There is trace mitral regurgitation. Mild tricuspid regurgitation present. There is no evidence of pulmonary hypertension. The right v entricular systolic pressure, as measured by Doppler, is 31.53mmHg. There is no pulmonic regurgitation present. The aortic root size is normal. Normal inferior vena cava with normal inspiratory collapse consistent with estimated right atrial pre ssure of 5 mmHg. There is no pericardial effusion. CONCLUSIONS -------- 1. The left ventricular size is normal. 2. Left ventricular wall thickness is normal. 3. Overall left ventricular systolic function is normal with, an EF between 55 - 60 %. 4. There is trace mitral regurgitation. 5. Mild tricuspid regurgitation present. CHECKOUT OPERATOR: Ara David [facility] [[email or web address]]
[2021-01-15 12:42] VITALS: BMI 16.9
--- NOTE | 2021-01-15 13:44 | CT ---
EXAMINATION TYPE: CT angio chest DATE OF EXAM: 01/15/2021 COMPARISON: 07/11/2020 HISTORY: Syncope. CT DLP: 335 mGycm CONTRAST: CT chest with contrast and 3D reconstruction with MIP imaging is performed with IV Contrast, patient injected with 100 mL of Isovue 370. Contrast-enhanced CT of the chest was performed through the course of the pulmonary arteries with linwood g and mediastinal window settings submitted. 3D reconstruction with MIP imaging was also performed. PULMONARY ARTERIES: The pulmonary arteries and their major tributaries are patent. I do not see cecille dence for sizable filling defect to suggest pulmonary embolic process. LUNGS: There is a large mass right upper lobe posteriorly measuring 9.5 x 7.0 x 6.5 cm. This has been described previously. Scattered interstitial prominence seen about the periphery of the right lung. Nodularity left lower lobe. Bronchial wall thickening. MEDIASTINUM: Thoracic aorta is of normal caliber,however, evaluation is limited given timing of the contrast bolus. If there is concern for thoracic aortic pathology consider KELVIN. Correlate clinicall y . The heart is not enlarged. No evidence for mediastinal mass. No mediastinal lymph nodes greater than 1cm. HILAR STRUCTURES: No evidence for mass. No hilar lymph nodes greater than 1 cm. UPPER ABDOMEN: Splenic mass is partially imaged. IMPRESSION: 1. No evidence for Pulmonary embolism at this time. 2. Findings again compatible with pulmonary malignancy.
[2021-01-15 16:53] VITALS: PULSE 68
--- NOTE | 2021-01-15 18:11 | P.DS ---
Providers Date of admission: 01/14/21 16:30 Expected date of discharge: 01/15/21 Attending physician: Manolo Cazares Consults: 01/14/21 16:31 Consult Physician Urgent Consulting Provider: [facility] Consult Reason/Comments: acute syncope Do you want consulting provider notified?: Yes Consult Physician Urgent Consulting Provider: Jax Saleem Reason/Comments: acute hypoxic respiratory failure, COPD, lung cancer on chemo Do you want consulting provider notified?: Yes Primary care physician: Shayne Cabello Hospital Course: Chief Complaint: Past out History of presenting complaint: This is a very pleasant 55-year-old patient of Dr. Cabello. Patient is also followed by Dr. Dolan of the weekend caregiver, Dr. Daniel the oncologist and Dr. Floyd Medina from radiation oncology. I will order a year ago patient was diagnosed with lung cancer. Has only had radiation treatment and chemotherapy. Currently being given immunotherapy. Today patient was ordered to have a computed tomography scan for a follow-up when he was getting off the table and getting his pants on he became dizzy and fell forwards on his face. No some bleeding and bruising on the side of the face. Patient is past her for a few minutes. For last few days patient has not pain eating well has had nausea and also been having weight loss. In fact he just started that on the corner. No swelling of the legs. No chest pain or palpitation. Chronic stable medical conditions include anxiety, GERD,. Pain In the spine from metastatic disease. Patient's is at bedside. Patient states his lung cancer had gone to the liver, lymph nodes and the spleen. VQ scan was intermediate probability. Treated for COPD exacerbation. With inhaled steroids and bronchodilators. January 15: Chest CTA negative for PE. Patient feeling much better. Given IV fluids. Told to move slowly when getting up. Patient follow-up with Dr. Daniel. Consultation: Dr. Saleem from pulmonary Past medical history to include: Lung cancer, COPD, GERD, Social history: Patient smoked a pack a day for about 37 years, stopped 3 years ago. 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 . No alcohol. Family history: Lung cancer Physical examination: VITAL SIGNS: 97.8, 73, 18, 97/58, 93% on 2 L GENERAL: BMI 16.9, sitting up in bed, awake. EYES: Pupils equal. Conjunctiva palel. HEENT: External appearance of nose and ears normal, oral cavity grossly normal bruising around the left eye in the perioperative mitral area.. NECK: JVD not raised; masses not palpable. HEART: First and second heart sounds are normal; no edema. LUNGS: Respiratory rate normal decreased breath sounds. ABDOMEN: Soft, nontender, liver spleen not palpable, no masses palpable. PSYCH: [Alert and oriented x3; mood and affect slightly anxious l. NEUROLOGICAL: Cranial nerves grossly intact; no facial asymmetry, power and sensation grossly intact. INVESTIGATIONS, reviewed in the clinical context: January 15: WBC 2.5 hemoglobin 9.1 potassium 4.3 creatinine 0.69 WBC 5.3 hemoglobin 10.6 platelets 313 potassium 4.2 creatinine 0.5 for Albumin 3.0 EKG tracing personally reviewed by me-normal sinus rhythm, rate 83 Chest x-ray film personally reviewed by me-prominent lung markings in the right upper lobe Face CT: No fractures reported CT of the cervical spine: Forearm and a stenosis C6-C7. Mild DJD Computed tomography scan of the chest abdomen pelvis: 7.9 cm irregular hypodensity within the spleen compatible with an enlarging metastatic lesion. Demadex size suspected To lesion posterior to right apex lung Assessment and plan: - Possibly acute COPD exacerbation. DuoNeb. In his steroids. Long-acting beta agonist. -PE ruled out Negative CTA -Lung cancer with metastatic disease Patient status post chemotherapy and radiation treatment. Being followed by Dr. Daniel. -Syncope, could be vasovagal. From hypotension Given IV fluids -Anxiety not otherwise specified Paxil -Left facial bruising secondary to fall. No fracture. Eyes back as needed -GERD Protonic -Back pain from malignancy Continue with mobile intake and MS Contin -Moderate protein calorie malnutrition, from decreased oral intake. BMI 16.9. Add ensure Disposition: Home Patient Condition at Discharge: Stable Plan - Discharge Summary Discharge Rx Participant: No New Discharge Prescriptions: Continue Albuterol Nebulized [Ventolin Nebulized] 2.5 mg INHALATION RT-Q6H PRN PRN Reason: Shortness Of Breath Folic Acid 1 mg PO DAILY Naloxegol Oxalate [Movantik] 25 mg PO DAILY HYDROcodone/APAP 10-325MG [[place] 10-325] 1 tab PO Q6H PRN PRN Reason: Pain Ondansetron Odt [Zofran ODT] 4 mg PO Q6H PRN PRN Reason: Nausea PARoxetine [Paxil] 20 mg PO DAILY Omeprazole 40 mg PO DAILY Morphine Sulfate ER [Ms Contin] 30 mg PO Q12HR Fluticasone/Umeclidin/Vilanter [Trelegy Ellipta 200-62.5-25] 1 puff INHALATION RT-DAILY Ibuprofen [Motrin] 400 mg PO TID PRN PRN Reason: Pain Lactulose 20 gm PO DAILY PRN PRN Reason: Constipation Discharge Medication List Albuterol Nebulized [Ventolin Nebulized] 2.5 mg INHALATION RT-Q6H PRN 07/08/20 [History] Fluticasone/Umeclidin/Vilanter [Trelegy Ellipta 200-62.5-25] 1 puff INHALATION RT-DAILY 11/19/20 [History] Folic Acid 1 mg PO DAILY 11/19/20 [History] HYDROcodone/APAP 10-325MG [[place] 10-325] 1 tab PO Q6H PRN 11/19/20 [History] Morphine Sulfate ER [Ms Contin] 30 mg PO Q12HR 11/19/20 [History] Naloxegol Oxalate [Movantik] 25 mg PO DAILY 11/19/20 [History] Omeprazole 40 mg PO DAILY 11/19/20 [History] PARoxetine [Paxil] 20 mg PO DAILY 11/19/20 [History] Ibuprofen [Motrin] 400 mg PO TID PRN 12/25/20 [History] Lactulose 20 gm PO DAILY PRN 12/25/20 [History] Ondansetron Odt [Zofran ODT] 4 mg PO Q6H PRN 12/25/20 [History] Follow up Appointment(s)/Referral(s): Shayne Cabello DO [Primary Care Provider] - 01/23/21 Claudette Morrison MD [STAFF PHYSICIAN] - 01/21/21 10:30 am Patient Instructions/Handouts: Syncope (DC), Hypoxia (GEN) Activity/Diet/Wound Care/Special Instructions: Activity as tolerated Heart healthy diet as tolerated
== END 2021-01-15 17:22 ==
LOC: EC 14:02 → 1SOBS 16:30 → 6NMEDSUR 16:48 → 5NMEDONC 19:42
PROVIDERS: ADMIT Hospitalist; ATTEND Hospitalist
DX: R55 Syncope and collapse (principal); I95.9 Hypotension, unspecified; C34.90 Malignant neoplasm of unspecified part of unspecified bronchus or lung; S06.0X9A Concussion with loss of consciousness of unspecified duration, initial encounter; S61.512A Laceration without foreign body of left wrist, initial encounter; W19.XXXA Unspecified fall, initial encounter; J44.9 Chronic obstructive pulmonary disease, unspecified; E44.0 Moderate protein-calorie malnutrition; G89.3 Neoplasm related pain (acute) (chronic); J96.01 Acute respiratory failure with hypoxia; F41.9 Anxiety disorder, unspecified; K21.9 Gastro-esophageal reflux disease without esophagitis; M54.9 Dorsalgia, unspecified; M48.02 Spinal stenosis, cervical region; Y84.8 Other medical procedures as the cause of abnormal reaction of the patient, or of later complication, without mention of misadventure at the time of the procedure; Z68.1 Body mass index [BMI] 19.9 or less, adult; Z79.899 Other long term (current) drug therapy; Z87.891 Personal history of nicotine dependence; Z92.21 Personal history of antineoplastic chemotherapy; Z92.3 Personal history of irradiation; Z80.1 Family history of malignant neoplasm of trachea, bronchus and lung
CPT/HCPCS: 96366 ×2; 96365; 96375; 99285; 36415; 94640 ×2; 94760; 93005; 93306; 85379; 80053; 80048; 84484; 85025 ×2; 85610 ×2; 85730 ×2; 71046; 72125; 70486; 70450; 71275; 78582; G0378 ×3; A9540; A9567; J2270; J1644 ×2; Q9967

== ENCOUNTER → 2021-01-14 | Outpatient (CLI) | payer OTHER ==
[2021-01-14 12:39] LABS: African American GFR (CKD) >90 (>60 ml/min/1.73 sqM); Blood Urea Nitrogen 12 mg/dL (9-20); Non-African American GFR(CKD) >90 (>60 ml/min/1.73 sqM)
[2021-01-14 14:04] LABS: Glucose,Whole Blood 100 mg/dL (75-99)
--- NOTE | 2021-01-14 15:10 | CT ---
EXAMINATION TYPE: CT ChestAbdPelvis w con DATE OF EXAM: 01/14/2021 INDICATION: Lung cancer. COMPARISON: 11/19/2020 CT DLP: 837 mGycm CONTRAST: Performed with Oral Contrast and with IV Contrast, patient injected with 100 mL of Isovue M300. TECHNIQUE: Axial images at 5 mm thick sections. Reconstructed images in the coronal plane. Delayed images through the kidneys. FINDINGS: CT CHEST: Portion of the thyroid visualized is normal. There is a hypodense collection in the posterior right upper lung field. This has low density of the spot of air. This could be a cavitary lesion or fluid. This currently measures 5.7 x 5.3 cm. Previous measurement 7.3 x 8.2 cm. Correlate with the patient's surgical history No enlarged mediastinal or hilar adenopathy is evident. The ascending aorta diameter at the level of the main pulmonary artery is 3.2 cm. The main pulmonary artery diameter at the bifurcation is 2.[address] ABDOMEN: Liver: Normal Spleen: There is an irregular hypodense mass within the spleen measuring 7.9 cm. This has enlarged ov er the interval. Pancreas: Normal Adrenal glands: The adrenal glands are normal. Gallbladder: Normal Kidneys: No masses are evident. No hydronephrosis is present. There is a 2.9 cm right renal cyst me asuring 11 Hounsfield units. Delayed images were obtained through the kidneys, which remain unremark able. Aorta: Vascular calcification is within the aorta. Inferior vena cava: Normal. CT PELVIS: Loops of bowel within the abdomen and pelvis are normal. Fecal debris is within the colon. There ar e loops of bowel lacking oral contrast or incomplete distention limiting their evaluation. Appendix: Not identified. No dilated tubular structure or inflammatory changes are identified. Urinary bladder: Normal. Genitourinary structures: Prostate is enlarged. Osseous structures: No suspicious lytic or sclerotic lesions. IMPRESSIONS: 1. 7.9 cm irregular hypodensity within the spleen compatible with an enlarging metastatic lesion. 2. Right renal cyst. 3. Diminished size suspected cavitary lesion posterior right apex
== END | disposition home or self-care (01) ==
LOC: RADCTMAIN 11:36
PROVIDERS: ATTEND Internal Medicine Hematology & Oncology
DX: C34.90 Malignant neoplasm of unspecified part of unspecified bronchus or lung (principal); D73.89 Other diseases of spleen; N28.1 Cyst of kidney, acquired
CPT/HCPCS: 82565; 84520; 71260; 74177; 36415; Q9967 ×2

== ENCOUNTER → 2021-05-01 | Outpatient (CLI) | payer MEDICARE ==
[2021-05-01 13:02] LABS: African American GFR (CKD) >90 (>60 ml/min/1.73 sqM); Blood Urea Nitrogen 15 mg/dL (9-20); Non-African American GFR(CKD) >90 (>60 ml/min/1.73 sqM)
--- NOTE | 2021-05-01 14:47 | CT ---
EXAMINATION TYPE: CT ChestAbdPelvis w con DATE OF EXAM: 05/01/2021 COMPARISON: CT CAP 01/14/2021 and older studies. HISTORY: Follow up lung cancer. CT DLP: 835 mGycm. Automated Exposure Control for Dose Reduction was Utilized. CONTRAST: CT scan of the thorax, abdomen and pelvis is performed with oral and with IV Contrast, patient injec myla with 100 mL of Isovue 300. FINDINGS: LUNGS: Background moderate emphysematous change with left lung expansion and right-sided volume loss redemonstrated. Persistent neoplasm posterior right hilar level measuring 7.1 x 5.6 cm current study axial image 24 stable or slightly improved from most recent CT. There is some narrowing of the middle and lower lobe bronchus and distal bronchus intermedius redemonstrated, right lower lobe segmental b ronchial extension remains present. Persistent superior tracheal retraction. Persistent mediastinal i nvasion posterior to the trachea axial image 25 with loss of fat plane adjacent to the mid esophagus similar to prior. Some new scattered surrounding scarring in the right lung is seen. There is worsen ing irregular consolidation in the posterior aspect of the right lung base noted. There is no pleural effusion or pneumothorax seen. Left lung remains clear. MEDIASTINUM: Stable prominent deep AP window lymph node axial image 22. No new greater than 1 cm lymp h nodes. No cardiomegaly or pericardial effusion is seen. Slight mass effect on proximal esophagus with dilatation and contrast filling noted axial image 11 for Reference. LIVER/GB: No significant abnormality is appreciated. PANCREAS: No significant abnormality is seen. SPLEEN: New splenomegaly at 15.4 cm coronal image 37 with prominent metastatic lesion measuring 10.0 cm long axis coronal image 37 versus 8.0 cm prior study. ADRENALS: No significant abnormality is seen. KIDNEYS: There is 3.0 cm thin-walled cyst anteriorly upper pole of the right kidney. BOWEL: Suboptimal evaluation as patient has little intra-abdominal fat but no suspicious dilatation i s seen. Mild colonic fecal prominence. GENITAL ORGANS: Enlarged prostate consistent with BPH redemonstrated. LYMPH NODES: No greater than 1cm abdominal or pelvic lymph nodes are appreciated. OSSEOUS STRUCTURES: No significant abnormality is seen. OTHER: Mild to moderate calcified plaque distal abdominal aorta extends into branch vessels. IMPRESSION: Primary neoplasm posterior right hilar level likely stable. Continued enlarging splenic lesion. No definitive new mass or adenopathy. Worsening irregular consolidation posterior aspect righ t lung base noted.
== END | disposition home or self-care (01) ==
LOC: RADCTMAIN 12:12
PROVIDERS: ATTEND Internal Medicine Hematology & Oncology
DX: C34.90 Malignant neoplasm of unspecified part of unspecified bronchus or lung (principal)
CPT/HCPCS: 82565; 84520; 71260; 74177; 36415; Q9967

== ENCOUNTER → 2021-05-30 | Outpatient (CLI) | payer MEDICARE ==
--- NOTE | 2021-05-30 17:00 | CT ---
EXAMINATION TYPE: CT abdomen pelvis w con DATE OF EXAM: 05/30/2021 COMPARISON: 05/01/2021 HISTORY: Change in bowel habits, back pain CT DLP: 675 mGycm CONTRAST: CT scan of the abdomen and pelvis is performed without Oral Contrast and with IV Contrast, patient in jected with 100 mL of Isovue 300. FINDINGS: LUNG BASES-: Previously noted right lower lobe collapse is much improved. There is persistent infiltr ate noted within the right lower lobe. LIVER/GB: No calcified gallstones. No space occupying hepatic lesion. Biliary tree is of normal ca liber. PANCREAS: No inflammation. No distinct mass. SPLEEN: Splenomegaly measuring 16.7 cm craniocaudal dimension. Multiloculated intrasplenic mass is re demonstrated and appears unchanged. Largest component measures 8 cm. Craniocaudal measurement of the mass is 11.2 cm also unchanged from prior study. ADRENALS: No nodule. No thickening. KIDNEYS/BLADDER: No hydronephrosis. No nephrolithiasis. Stable right renal cyst. Urinary bladder gr ossly unremarkable. BOWEL: Normal bowel caliber. No inflammation. Moderate fecal stasis. GENITAL ORGANS: No gross abnormality. LYMPH NODES: No greater than 1cm abdominal or pelvic lymph nodes are appreciated. AORTA: No significant abnormality. OSSEOUS STRUCTURES: No significant abnormality is seen. OTHER: No significant additional abnormality is seen. IMPRESSION: 1. Splenomegaly with large loculated intrasplenic mass. 2.Previously noted right lower lobe collapse is much improved. There is persistent infiltrate noted w ithin the right lower lobe. 3. Moderate fecal stasis. No acute inflammatory process appreciated.
== END | disposition home or self-care (01) ==
LOC: RADCTMAIN 15:50
PROVIDERS: ATTEND Internal Medicine Hematology & Oncology
DX: R16.1 Splenomegaly, not elsewhere classified (principal); R19.5 Other fecal abnormalities
CPT/HCPCS: 74177; Q9967

== ENCOUNTER 2021-06-11 20:16 | Emergency (ER) | payer MEDICARE ==
[2021-06-11 20:33] VITALS: TEMP 99.8
[2021-06-11] MEDS ORDERED: MORPHINE SULFATE 4 MG/ML SYRINGE IV STA (20:45)
[2021-06-11] MEDS ORDERED: SODIUM CHLORIDE 0.9% 1,000 ML IV STA (20:45)
[2021-06-11 21:05] LABS: Basophils % (A) 1 %; Eosinophils # (A) 0.1 k/uL (0-0.7); Eosinophils % (A) 2 %; HCT 35.8 % (39.0-53.0); HGB 11.7 gm/dL (13.0-17.5); Lymphocytes # (A) 0.6 k/uL (1.0-4.8); Lymphocytes % (A) 11 %; MCH 29.4 pg (25.0-35.0); MCHC 32.8 g/dL (31.0-37.0); MCV 89.5 fL (80.0-100.0); Mean Platelet Volume 7.1; Monocytes # (A) 0.5 k/uL (0-1.0); Monocytes % (A) 10 %; Neutrophils # (A) 3.9 k/uL (1.3-7.7); Neutrophils % (A) 74 %; Platelet Count 274 k/uL (150-450); RDW 15.2 % (11.5-15.5); WBC 5.3 k/uL (3.8-10.6)
[2021-06-11 21:14] LABS: ALT 8 U/L (4-49); AST 20 U/L (17-59); African American GFR (CKD) >90 (>60 ml/min/1.73 sqM); Albumin 3.2 g/dL (3.5-5.0); Alkaline Phosphatase 65 U/L (38-126); Amylase 69 U/L (30-110); Anion Gap 6 mmol/L; Blood Urea Nitrogen 14 mg/dL (9-20); Calcium 8.6 mg/dL (8.4-10.2); Carbon Dioxide 28 mmol/L (22-30); Chloride 95 mmol/L (98-107); Glucose 118 mg/dL (74-99); Lipase 32 U/L (23-300); Non-African American GFR(CKD) >90 (>60 ml/min/1.73 sqM); Potassium 4.6 mmol/L (3.5-5.1); Sodium 129 mmol/L (137-145); Total Bilirubin 0.3 mg/dL (0.2-1.3); Total Protein 6.3 g/dL (6.3-8.2)
--- NOTE | 2021-06-11 22:08 | CT ---
EXAMINATION TYPE: CT abdomen pelvis w con DATE OF EXAM: 06/11/2021 COMPARISON: 05/30/2021 HISTORY: Abdominal pain CT DLP: 610.6 mGycm Automated exposure control for dose reduction was used. TECHNIQUE: Helical acquisition of images was performed from the lung bases through the pelvis. CONTRAST: Performed without Oral Contrast and with IV Contrast, patient injected with 100 mL of Isovue 300. FINDINGS: LUNG BASES: Moderate and minimal left bibasilar opacity. LIVER/GB: No significant abnormality is appreciated. PANCREAS: No significant abnormality is seen. SPLEEN: Grossly unchanged 7.5 x 5 cm heterogeneous, hypoattenuating irregular splenic mass. ADRENALS: No significant abnormality is seen. KIDNEYS: No significant abnormality is seen. Stable 2.5 cm simple right renal cyst. FREE AIR: No free air is visualized. RETROPERITONEAL ADENOPATHY: None visualized REPRODUCTIVE ORGANS: No significant abnormality is seen URINARY BLADDER: No significant abnormality is seen. PELVIC ADENOPATHY: None visualized. OSSEOUS STRUCTURES: No significant abnormality is seen. BOWEL: No significant abnormality is seen. OTHER: None IMPRESSION: PERSISTENT RIGHT LOWER LOBE OPACITIES, MILDLY INCREASED COMPARED TO THE PRIOR STUDY. UNCHANGED, INDETERMINATE LARGE SPLENIC MASS.
--- NOTE | 2021-06-11 22:27 | ED ---
Abdominal Pain HPI - General Source: patient, RN notes reviewed Mode of arrival: wheelchair Limitations: no limitations <Michael Burris - Last Filed: 06/11/21 22:11> <Leyla Kramer - Last Filed: 06/19/21 00:31> - General Chief Complaint: Abdominal Pain Stated Complaint: Abdominal pain Time Seen by Provider: 06/11/21 20:36 - History of Present Illness Initial Comments: 56-year-old male complaining of constipation. He notes he is done several enemas at home and taken everything [id number] he can think of. Patient notes that he's had this issue in the past. He notes he came in for evaluation for possible obstruction. Patient notes that his pain was approximate 7 out of 10 with no relief. Patient was otherwise well-appearing in no apparent distress. He denied chest pain shortness of breath headache nausea vomiting diarrhea fever fatigue chills. (Michael Burris) - Related Data Home Medications Medication Instructions Recorded Confirmed Albuterol Nebulized [Ventolin 2.5 mg INHALATION RT-BID 07/08/20 06/11/21 Nebulized] Fluticasone/Umeclidin/Vilanter 1 puff INHALATION RT-DAILY 11/19/20 06/11/21 [Trelegy Ellipta 200-62.5-25] HYDROcodone/APAP 10-325MG [[place] 1 tab PO Q6H PRN 11/19/20 06/11/21 10-325] Morphine Sulfate ER [Ms Contin] 30 mg PO BID 11/19/20 06/11/21 Omeprazole 40 mg PO DAILY 11/19/20 06/11/21 PARoxetine [Paxil] 20 mg PO HS 11/19/20 06/11/21 Ibuprofen [Motrin] 400 mg PO TID PRN 12/25/20 06/11/21 Cholestyramine (with Sugar) 4 gm PO DAILY PRN 06/11/21 06/11/21 [Cholestyramine Packet] Metoclopramide [Reglan] 5 mg PO TID 06/11/21 06/11/21 Morphine Sulfate Ir [MSIR] 15 mg PO TID PRN 06/11/21 06/11/21 Sennosides [Senna] 8.6 mg PO BID 12/15/21 12/15/21 Previous Rx's Medication Instructions Recorded Peg 3350-Na Sulf,Bicarb,Cl/KCl 4,000 ml PO DIRECTED #1 each 06/11/21 [Golytely Lavage] Allergies Allergy/AdvReac Type Severity Reaction Status Date / Time No Known Allergies Allergy Verified 06/11/21 22:14 Review of Systems ROS Other: All systems not noted in ROS Statement are negative. <Michael Burris - Last Filed: 06/11/21 22:11> ROS Other: All systems not noted in ROS Statement are negative. <Leyla Kramer - Last Filed: 06/19/21 00:31> ROS Statement: Those systems with pertinent positive or pertinent negative responses have been documented in the HPI. Past Medical History Past Medical History: Cancer, COPD, GERD/Reflux Additional Past Medical History / Comment(s): back pain, Lung Cancer History of Any Multi-Drug Resistant Organisms: None Reported Past Surgical History: No Surgical Hx Reported Past Anesthesia/Blood Transfusion Reactions: No Reported Reaction Additional Past Anesthesia/Blood Transfusion Reaction / Comment(s): has never had anesthesia Past Psychological History: Anxiety Smoking Status: Former smoker Past Alcohol Use History: None Reported Past Drug Use History: None Reported - Past Family History Father Additional Family Medical History / Comment(s): Lung Cancer Mother Family Medical History: No Reported History <Michael Burris - Last Filed: 06/11/21 22:11> General Exam Limitations: no limitations General appearance: alert, in no apparent distress Head exam: Present: atraumatic, normocephalic, normal inspection Eye exam: Present: normal appearance, PERRL, EOMI. Absent: scleral icterus, conjunctival injection, periorbital swelling ENT exam: Present: normal exam Neck exam: Present: normal inspection. Absent: tenderness, meningismus, lymphadenopathy Respiratory exam: Present: normal lung sounds bilaterally. Absent: respiratory distress, wheezes, rales, rhonchi, stridor Cardiovascular Exam: Present: regular rate, normal rhythm, normal heart sounds. Absent: systolic murmur, diastolic murmur, rubs, gallop, clicks GI/Abdominal exam: Present: soft, normal bowel sounds. Absent: distended, tenderness, guarding, rebound, rigid Extremities exam: Present: normal inspection, full ROM, normal capillary refill. Absent: tenderness, pedal edema, joint swelling, calf tenderness Neurological exam: Present: alert, oriented X3 Psychiatric exam: Present: normal affect, normal mood Skin exam: Present: warm, dry, intact, normal color. Absent: rash <Michael Burris - Last Filed: 06/11/21 22:11> Course Vital Signs 06/11/21 06/11/21 20:29 22:52 Temperature 99.8 F H Pulse Rate 77 64 Respiratory 20 18 Rate Blood Pressure 96/63 115/98 O2 Sat by Pulse 94 L 93 L Oximetry Medical Decision Making - Lab Data Result diagrams: 06/11/21 20:58 06/11/21 20:58 - Radiology Data Radiology results: report reviewed, image reviewed <Michael Burris - Last Filed: 06/11/21 22:11> - Lab Data Result diagrams: 06/11/21 20:58 06/11/21 20:58 <Leyla Kramer - Last Filed: 06/19/21 00:31> - Medical Decision Making Is a 56-year-old male complaining of constipation and possible obstruction. Labs, CT of the abdomen and pelvis, 1 L normal saline, 4 mg of morphine ordered. Labs: CBC unremarkable, CMP unremarkable. Computed tomography scan shows bilateral lower lobe opacities and a large splenic mass with no bowel obstruction. Results were informed and related to patient and they verbalized her understanding. Case discussed with Dr. Kramer, patient will discharge home with [facility]. (Michael Burris) I was available for consultation in the emergency department. The history and physical exam were done by the midlevel provider. I was consulted for this patients care. I reviewed the case with the midlevel provider and based on their presentation of the patient, I agree with the assessment, medical decision making and plan of care as documented. Chart was dictated using [employer] dictation software. Attempts were made to correct any dictation errors however some typographical errors may persist. Patient was seen during a national state of emergency due to the Covid-19 pandemic. (Leyla Kramer) - Lab Data Lab Results 06/11/21 06/11/21 Range/Units 20:58 20:58 WBC 5.3 (3.8-10.6) k/uL RBC 4.00 L (4.30-5.90) m/uL Hgb 11.7 L (13.0-17.5) gm/dL Hct 35.8 L (39.0-53.0) % MCV 89.5 (80.0-100.0) fL MCH 29.4 (25.0-35.0) pg MCHC 32.8 (31.0-37.0) g/dL RDW 15.2 (11.5-15.5) % Plt Count 274 (150-450) k/uL MPV 7.1 Neutrophils % 74 % Lymphocytes % 11 % Monocytes % 10 % Eosinophils % 2 % Basophils % 1 % Neutrophils # 3.9 (1.3-7.7) k/uL Lymphocytes # 0.6 L (1.0-4.8) k/uL Monocytes # 0.5 (0-1.0) k/uL Eosinophils # 0.1 (0-0.7) k/uL Basophils # 0.0 (0-0.2) k/uL Sodium 129 L (137-145) mmol/L Potassium 4.6 (3.5-5.1) mmol/L Chloride 95 L (98-107) mmol/L Carbon Dioxide 28 (22-30) mmol/L Anion Gap 6 mmol/L BUN 14 (9-20) mg/dL Creatinine 0.53 L (0.66-1.25) mg/dL Est GFR (CKD-EPI)AfAm >90 (>60 ml/min/1.73 sqM) Est GFR (CKD-EPI)NonAf >90 (>60 ml/min/1.73 sqM) Glucose 118 H (74-99) mg/dL Calcium 8.6 (8.4-10.2) mg/dL Total Bilirubin 0.3 (0.2-1.3) mg/dL AST 20 (17-59) U/L ALT 8 (4-49) U/L Alkaline Phosphatase 65 (38-126) U/L Total Protein 6.3 (6.3-8.2) g/dL Albumin 3.2 L (3.5-5.0) g/dL Amylase 69 (30-110) U/L Lipase 32 (23-300) U/L - Radiology Data CT of the abdomen and pelvis: Persistent right lower lobe opacities. Mildly increased compared to prior study. Unchanged indeterminate large splenic mass. (Michael Burris) Disposition Is patient prescribed a controlled substance at d/c from ED?: No Time of Disposition: 22:28 <Michael Burris - Last Filed: 06/11/21 22:11> <Leyla Kramer - Last Filed: 06/19/21 00:31> Clinical Impression: Constipation Disposition: HOME SELF-CARE Condition: Stable Instructions (If sedation given, give patient instructions): Constipation (ED) Additional Instructions: Please return to the Emergency Department if symptoms worsen or any other concerns. Take bowel prep as prescribed. Follow-up with GI specialist as soon as possible. Increase fluids. Prescriptions: Peg 3350-Na Sulf,Bicarb,Cl/KCl [Golytely Lavage] 4,000 ml PO DIRECTED #1 each Referrals: Christine Prasad DO [Primary Care Provider] - 1-2 days Tara Ray MD [STAFF PHYSICIAN] - 1-2 days
[2021-06-11 22:54] VITALS: BP 115/98; PULSE 64; RESP 18
== END 2021-06-11 22:54 | disposition home or self-care (01) ==
LOC: EC 20:16
DX: K59.00 Constipation, unspecified (principal); J44.9 Chronic obstructive pulmonary disease, unspecified; K21.9 Gastro-esophageal reflux disease without esophagitis; F41.9 Anxiety disorder, unspecified; Z87.891 Personal history of nicotine dependence; Z79.51 Long term (current) use of inhaled steroids; Z79.1 Long term (current) use of non-steroidal anti-inflammatories (NSAID); Z79.899 Other long term (current) drug therapy
CPT/HCPCS: 36415; 80053; 82150; 83690; 85025; 74177; 99284; 96374; 96361; J2270; Q9967

== ENCOUNTER 2021-06-28 03:12 | Inpatient (IN) | payer MEDICARE ==
--- NOTE | 2021-06-28 03:29 | ED ---
General Adult HPI - General Source: patient, family, RN notes reviewed Mode of arrival: ambulatory Limitations: no limitations <Eduardo Fleming - Last Filed: 06/28/21 03:28> <Gerard Pollock - Last Filed: 06/28/21 08:13> - General Stated complaint: SOB Time Seen by Provider: 06/28/21 03:20 - History of Present Illness Initial comments: This a 56-year-old male presents emergency Department chief complaint of fever, shortness of breath. Patient states that he has not felt well recently. Increasing shortness of breath. Patient is normally on oxygen. Patient does have COPD, lung cancer. Patient denies any fever prior arrival. Patient has had prior vaccine for COVID-19. Patient denies any nausea vomiting. Patient states that he has had some pneumonia infections in the past. Patient is currently on chemotherapy and has had radiation. Patient sees Dr. Morrison and Dr. Medina (Eduardo Fleming) - Related Data Home Medications Medication Instructions Recorded Confirmed Albuterol Nebulized [Ventolin 2.5 mg INHALATION RT-Q6H PRN 07/08/20 06/28/21 Nebulized] Fluticasone/Umeclidin/Vilanter 1 puff INHALATION RT-DAILY 11/19/20 06/28/21 [Trelegy Ellipta 200-62.5-25] HYDROcodone/APAP 10-325MG [[place] 1 tab PO Q6H PRN 11/19/20 06/28/21 10-325] Morphine Sulfate ER [Ms Contin] 30 - 60 mg PO DIRECTED 11/19/20 06/28/21 Omeprazole 40 mg PO DAILY 11/19/20 06/28/21 PARoxetine [Paxil] 20 mg PO HS 11/19/20 06/28/21 Ibuprofen [Motrin] 400 mg PO TID PRN 12/25/20 06/28/21 Metoclopramide [Reglan] 5 mg PO TID 06/11/21 06/28/21 Sennosides [Senna] 17.2 mg PO HS 06/11/21 06/28/21 Gabapentin [Neurontin] 100 mg PO TID 06/28/21 06/28/21 Magnesium Oxide [Mag-Ox] 400 mg PO HS 06/28/21 06/28/21 Ondansetron Odt [Zofran Odt] 4 mg PO Q6H PRN 06/28/21 06/28/21 Pembrolizumab [Keytruda] 200 mg IVP Q21D 06/28/21 06/28/21 Allergies Allergy/AdvReac Type Severity Reaction Status Date / Time No Known Allergies Allergy Verified 06/28/21 07:56 Review of Systems ROS Other: All systems not noted in ROS Statement are negative. <Eduardo Fleming - Last Filed: 06/28/21 03:28> ROS Other: All systems not noted in ROS Statement are negative. <Gerard Pollock - Last Filed: 06/28/21 08:13> ROS Statement: Those systems with pertinent positive or pertinent negative responses have been documented in the HPI. Past Medical History Past Medical History: Cancer, COPD, GERD/Reflux Additional Past Medical History / Comment(s): back pain, Lung Cancer History of Any Multi-Drug Resistant Organisms: None Reported Past Surgical History: No Surgical Hx Reported Past Anesthesia/Blood Transfusion Reactions: No Reported Reaction Additional Past Anesthesia/Blood Transfusion Reaction / Comment(s): has never had anesthesia Past Psychological History: Anxiety Smoking Status: Former smoker Past Alcohol Use History: None Reported Past Drug Use History: None Reported - Past Family History Father Additional Family Medical History / Comment(s): Lung Cancer Mother Family Medical History: No Reported History <Eduardo Fleming - Last Filed: 06/28/21 03:28> Course Vital Signs 06/28/21 06/28/21 03:25 04:28 Temperature 101.4 F H Pulse Rate 91 76 Respiratory 26 H 19 Rate Blood Pressure 128/80 124/77 O2 Sat by Pulse 97 96 Oximetry Medical Decision Making - Lab Data Result diagrams: 06/28/21 05:15 06/28/21 05:15 <Gerard Pollock - Last Filed: 06/28/21 08:13> - Medical Decision Making Patient's 56-year-old man in with dyspnea, cough, and fever. He states he had been feeling well prior to today. He had gone and had immunotherapy with his oncologist. (Gerard Pollock) - Lab Data Lab Results 06/28/21 06/28/21 06/28/21 Range/Units 03:29 04:05 05:15 WBC 5.4 (3.8-10.6) k/uL RBC 2.94 L (4.30-5.90) m/uL Hgb 8.6 L D (13.0-17.5) gm/dL Hct 26.4 L (39.0-53.0) % MCV 89.9 (80.0-100.0) fL MCH 29.3 (25.0-35.0) pg MCHC 32.6 (31.0-37.0) g/dL RDW 14.9 (11.5-15.5) % Plt Count 229 (150-450) k/uL MPV 7.5 Neutrophils % 80 % Lymphocytes % 8 % Monocytes % 8 % Eosinophils % 1 % Basophils % 0 % Neutrophils # 4.3 (1.3-7.7) k/uL Lymphocytes # 0.4 L (1.0-4.8) k/uL Monocytes # 0.4 (0-1.0) k/uL Eosinophils # 0.0 (0-0.7) k/uL Basophils # 0.0 (0-0.2) k/uL Sodium (137-145) mmol/L Potassium (3.5-5.1) mmol/L Chloride (98-107) mmol/L Carbon Dioxide (22-30) mmol/L Anion Gap mmol/L BUN (9-20) mg/dL Creatinine (0.66-1.25) mg/dL Est GFR (CKD-EPI)AfAm (>60 ml/min/1.73 sqM) Est GFR (CKD-EPI)NonAf (>60 ml/min/1.73 sqM) Glucose (74-99) mg/dL Plasma Lactic Acid Oumar 1.5 (0.7-2.0) mmol/L Calcium (8.4-10.2) mg/dL Total Bilirubin (0.2-1.3) mg/dL AST (17-59) U/L ALT (4-49) U/L Alkaline Phosphatase (38-126) U/L Total Protein (6.3-8.2) g/dL Albumin (3.5-5.0) g/dL Coronavirus (PCR) Not Detected (Not Detectd) 06/28/21 Range/Units 05:15 WBC (3.8-10.6) k/uL RBC (4.30-5.90) m/uL Hgb (13.0-17.5) gm/dL Hct (39.0-53.0) % MCV (80.0-100.0) fL MCH (25.0-35.0) pg MCHC (31.0-37.0) g/dL RDW (11.5-15.5) % Plt Count (150-450) k/uL MPV Neutrophils % % Lymphocytes % % Monocytes % % Eosinophils % % Basophils % % Neutrophils # (1.3-7.7) k/uL Lymphocytes # (1.0-4.8) k/uL Monocytes # (0-1.0) k/uL Eosinophils # (0-0.7) k/uL Basophils # (0-0.2) k/uL Sodium 129 L (137-145) mmol/L Potassium 4.0 (3.5-5.1) mmol/L Chloride 98 (98-107) mmol/L Carbon Dioxide 25 (22-30) mmol/L Anion Gap 6 mmol/L BUN 12 (9-20) mg/dL Creatinine 0.51 L (0.66-1.25) mg/dL Est GFR (CKD-EPI)AfAm >90 (>60 ml/min/1.73 sqM) Est GFR (CKD-EPI)NonAf >90 (>60 ml/min/1.73 sqM) Glucose 106 H (74-99) mg/dL Plasma Lactic Acid Oumar (0.7-2.0) mmol/L Calcium 7.8 L (8.4-10.2) mg/dL Total Bilirubin <0.1 L (0.2-1.3) mg/dL AST 15 L (17-59) U/L ALT 7 (4-49) U/L Alkaline Phosphatase 63 (38-126) U/L Total Protein 5.2 L (6.3-8.2) g/dL Albumin 2.5 L (3.5-5.0) g/dL Coronavirus (PCR) (Not Detectd) Disposition <Eduardo Fleming - Last Filed: 06/28/21 03:28> <Gerard Pollock - Last Filed: 06/28/21 08:13> Clinical Impression: COPD exacerbation, Lung cancer, Fever, Anemia, Hyponatremia Disposition: ADMITTED IP TO THIS HOSP Condition: Fair
--- NOTE | 2021-06-28 04:24 | XR ---
EXAMINATION TYPE: XR chest 2V DATE OF EXAM: 06/28/2021 COMPARISON: 01/14/2021 HISTORY: Fever TECHNIQUE: FINDINGS: There is masslike infiltrate above the right pulmonary hilum. There is some shift of the he art to the right side. Left lung is clear. No heart failure. No pleural effusion. IMPRESSION: There is some consolidation and volume loss right upper lobe which has progressed slightl y compared to last exam and consistent with tumor. No heart failure. Normal heart.
[2021-06-28] MEDS ORDERED: ACETAMINOPHEN TAB 325 MG TAB PO STA (05:12)
[2021-06-28 05:34] LABS: Basophils % (A) 0 %; Eosinophils % (A) 1 %; HCT 26.4 % (39.0-53.0); Lymphocytes # (A) 0.4 k/uL (1.0-4.8); Lymphocytes % (A) 8 %; MCH 29.3 pg (25.0-35.0); MCHC 32.6 g/dL (31.0-37.0); MCV 89.9 fL (80.0-100.0); Mean Platelet Volume 7.5; Monocytes # (A) 0.4 k/uL (0-1.0); Monocytes % (A) 8 %; Neutrophils # (A) 4.3 k/uL (1.3-7.7); Neutrophils % (A) 80 %; Platelet Count 229 k/uL (150-450); RBC 2.94 m/uL (4.30-5.90); RDW 14.9 % (11.5-15.5); WBC 5.4 k/uL (3.8-10.6)
[2021-06-28 05:43] LABS: HGB 8.6 gm/dL (13.0-17.5)
[2021-06-28 05:46] LABS: ALT 7 U/L (4-49); AST 15 U/L (17-59); African American GFR (CKD) >90 (>60 ml/min/1.73 sqM); Albumin 2.5 g/dL (3.5-5.0); Alkaline Phosphatase 63 U/L (38-126); Anion Gap 6 mmol/L; Blood Urea Nitrogen 12 mg/dL (9-20); Calcium 7.8 mg/dL (8.4-10.2); Carbon Dioxide 25 mmol/L (22-30); Chloride 98 mmol/L (98-107); Glucose 106 mg/dL (74-99); Non-African American GFR(CKD) >90 (>60 ml/min/1.73 sqM); Sodium 129 mmol/L (137-145); Total Bilirubin <0.1 mg/dL (0.2-1.3); Total Protein 5.2 g/dL (6.3-8.2)
[2021-06-28] MEDS ORDERED: IPRATROPIUM-ALBUTEROL 3 ML NEB INHALATION STA (06:21)
[2021-06-28] MEDS ORDERED: AZITHROMYCIN 500 MG TAB PO STA (06:28)
[2021-06-28] MEDS ORDERED: ONDANSETRON ODT 4 MG TAB PO PRN (08:07)
[2021-06-28] MEDS ORDERED: ALBUTEROL NEBULIZED 2.5 MG/3 ML INHALATION PRN (08:07)
[2021-06-28] MEDS ORDERED: IBUPROFEN 400 MG TAB PO PRN (08:07)
[2021-06-28] MEDS ORDERED: HYDROmorphone 1 MG/ML 1 ML SYRINGE IVP STA (08:07)
[2021-06-28] MEDS ORDERED: predniSONE 20 MG TAB PO SCH (09:00)
[2021-06-28] MEDS: IPRATROPIUM-ALBUTEROL 3 ML NEB INHALATION SCH ×4 (09:23→21:03)
[2021-06-28] MEDS: SODIUM CHLORIDE 0.9% 1,000 ML IV SCH ×2 (10:16→17:35)
[2021-06-28] MEDS: GABAPENTIN 100 MG CAP PO SCH ×3 (12:23→20:52)
[2021-06-28] MEDS: guaiFENesin 600 MG TABLET.ER PO SCH ×2 (12:23→21:52)
[2021-06-28] MEDS: MORPHINE SULFATE ER 30 MG TABLET PO SCH ×2 (12:23→20:53)
[2021-06-28] MEDS: METOCLOPRAMIDE 5 MG TAB PO SCH ×3 (12:24→17:07)
[2021-06-28] MEDS: PANTOPRAZOLE 40 MG TABLET PO SCH (12:24)
[2021-06-28 14:22] LABS: Magnesium 1.9 mg/dL (1.6-2.3); Phosphorus 3.2 mg/dL (2.5-4.5)
--- NOTE | 2021-06-28 14:42 | CT ---
EXAMINATION TYPE: CT angio chest CT DLP: 227.1 mGycm, Automated exposure control for dose reduction was used. DATE OF EXAM: 06/28/2021 1:49 PM COMPARISON: Prior scans of the chest including a PET scan 07/19/2020 CT chest 07/11/2020 CLINICAL INDICATION:Male, 56 years old with history of pulm embo; PHH, SOB TECHNIQUE/CONTRAST: CTA scan of the thorax is performed with IV Contrast, patient injected with 100 mL of Isovue 370, pul monary embolism protocol. MIP images are created and reviewed. FINDINGS: Pulmonary Artery: There is no evidence for a filling defect within the pulmonary vasculature to sugge st acute pulmonary embolism. The pulmonary artery is of normal size. Lungs/Pleura: Redemonstration of right mediastinal mass superior to the right pulmonary hilum with so ft tissue density extending mediastinum and around right main bronchus and the central airways. Conso lidation of the posterior aspect of right upper lobe is present likely obstructive atelectasis. Addit ional consolidation changes within the lung bases bilaterally up to be related to aspiration given fi ndings of opacified airways. Airway: Patent airways within the lower lobes bilaterally. Right upper lobe bronchus is not definitiv ana laura visualized suggesting complete occlusion Heart: Within normal limits for size. Vasculature: No evidence of aortic aneurysm. Mediastinum: Soft tissue density infiltrating the mediastinum and around the central airways on the r ight. Musculoskeletal: Mild degenerative disc disease changes are present throughout the thoracolumbar spin e. Soft Tissues: Unremarkable. Lower neck: No significant findings. Upper Abdomen: Radiographic area of low attenuation within the spleen measuring 5.7 cm. Renal cyst me asuring 2.9 cm. IMPRESSION: 1. No evidence of pulmonary embolism. 2. Right suprahilar mass which narrows the central airways on the right. This results in stenosis of the right main bronchus with at least 90% narrowing and postobstructive atelectasis of the right uppe r lobe. 3. Consolidation changes within the lung bases with opacified airways suggesting aspiration pneumoni tis/pneumonia. 4. Emphysema changes. 5. Low density lesion which may represent metastatic disease given findings in #2 and prior PET scan.
[2021-06-28] MEDS ORDERED: ALPRAZolam 0.25 MG TAB PO PRN (15:12)
[2021-06-28] MEDS ORDERED: methylPREDNISolone SOD SUCCI 125 MG/2 ML VIAL IV SCH (16:00)
[2021-06-28 16:23] LABS: Glucose,Whole Blood 133 mg/dL (75-99)
--- NOTE | 2021-06-28 16:31 | HP ---
HISTORY AND PHYSICAL CHIEF COMPLAINT: Shortness of breath. HISTORY OF PRESENT ILLNESS: This 56-year-old gentleman with a past medical history of COPD, history of GERD, history of back surgery, history of lung cancer, being followed by Dr. Christine Tom and Dr. Jasbir Dewey is complaining of shortness of breath. The patient was not feeling well recently. The patient had 2 prior vaccines. Apparently the Covid 19 initial test was negative and because of increasing difficulties, the patient came to [facility] and was admitted for further evaluation and treatment. The white count is 5.4. Sodium is 129. Covid 19 was negative. As mentioned earlier, the pulse ox was found to be 96% on 2 L. Patient was found to be febrile and chest x-ray which was done on admission showed increased bronchovascular markings and CT angio of the chest was also done which showed significant bullous emphysema, right upper lobe lesion and some peripheral lesions suggestive of pneumonia as well. Covid 19 is also considered a possibility. Patient admitted for further evaluation. Broad-spectrum IV antibiotics being given. Pulmonary has been consulted. PAST MEDICAL HISTORY: History of lung cancer, history of COPD, history of GERD, history of back pain. MEDICATIONS: Home medications are reviewed and include: Senna, Keytruda, Paxil, Zofran, omeprazole, MS Contin, Reglan, Motrin. Doses and other medications reviewed. ALLERGIES: None. FAMILY HISTORY: History of lung cancer in the family. SOCIAL HISTORY: Previous history of smoking. No history of alcohol intake. REVIEW OF SYSTEMS: ENT: No diminished vision. No diminished hearing. CARDIOVASCULAR as mentioned earlier. RESPIRATORY: As mentioned earlier. GI: No nausea or vomiting. : No dysuria. NERVOUS SYSTEM: No numbness or weakness. ALLERGY/IMMUNOLOGY: No asthma or hayfever. MUSCULOSKELETAL: As mentioned earlier. HEMATOLOGY/ONCOLOGY: No history of anemia. ENDOCRINE: No history of diabetes or hypothyroidism. CONSTITUTIONAL: As mentioned earlier. DERMATOLOGY: Negative. RHEUMATOLOGY: Negative. PSYCHIATRY as mentioned earlier. PHYSICAL EXAMINATION: Patient is alert, oriented x3. Pulse is 76. Blood pressure 124/77, respiration 19, temperature 101.2, pulse ox 97% on 2 L. HEENT: Conjunctivae normal. NECK: No JVD. CARDIOVASCULAR: S1, S2. RESPIRATORY: Breath sounds diminished at the bases. A few scattered rhonchi and crackles. ABDOMEN: Soft, nontender. LEGS are no edema. No swelling. NERVOUS SYSTEM: No focal deficits. LABS: WBC 5.7, hemoglobin 9.2, sodium 139, potassium 4. ASSESSMENT: 1. Chronic obstructive pulmonary disease acute exacerbation with possible acute right middle and lower lobe pneumonia, possibly postobstructive. 2. Possible stage IV lung cancer. 3. Rule out Covid 19. 4. Anemia, normocytic possibly secondary to malignancy. 5. Hyponatremia, multifactorial. 6. Severe protein-calorie malnutrition, BMI of 16.5. 7. History of nicotine dependence. 8. History of gastroesophageal reflux disease. 9. History of back pain. 10.History of anxiety. 11.FULL CODE. RECOMMENDATIONS AND DISCUSSION: In this 56-year-old gentleman who presented with multiple complex medical issues, we will monitor the patient closely. We will optimize bronchodilators, steroids, empiric antibiotics. Otherwise Covid 19 has been repeated. We will also obtain serum procalcitonin. Cultures will be obtained. Prognosis guarded because of multiple complex medical issues. Further recommendations to follow. Pulmonary will also will be consulted. A copy of dictation forwarded to Dr. Christine Tom. MMODL / IJN: [id number] /
[2021-06-28] MEDS: INSULIN ASPART (NovoLOG) 100 UNIT/ML VIAL SQ SCH ×2 (17:06→21:53)
[2021-06-28] MEDS ORDERED: SYMBICORT 80-4.5 MCG INHALER INHALATION SCH (20:00)
[2021-06-28] MEDS: SENNOSIDES 8.6 MG TAB PO SCH (20:52)
[2021-06-28] MEDS: PARoxetine 20 MG TAB PO SCH (20:52)
[2021-06-28] MEDS: HEPARIN SODIUM,PORCINE/PF 5,000 UNIT/0.5 ML SYRINGE SQ SCH (20:52)
[2021-06-28] MEDS: methylPREDNISolone SOD SUCCI 125 MG/2 ML VIAL IV SCH (20:52)
[2021-06-28] MEDS: MAGNESIUM OXIDE 400 MG TAB PO SCH (20:52)
[2021-06-28] MEDS ORDERED: TEMAZEPAM 15 MG CAP PO PRN (21:00)
[2021-06-28] MEDS: FORMOTEROL FUMARATE 20 MCG/2 ML NEBU INHALATION SCH (21:04)
[2021-06-28] MEDS: BUDESONIDE 1 MG/2 ML NEBU INHALATION SCH (21:04)
[2021-06-28 21:43] LABS: Glucose,Whole Blood 129 mg/dL (75-99)
[2021-06-29] MEDS: methylPREDNISolone SOD SUCCI 125 MG/2 ML VIAL IV SCH ×4 (01:21→17:08)
[2021-06-29] MEDS: SODIUM CHLORIDE 0.9% 1,000 ML IV SCH ×2 (05:28→17:08)
[2021-06-29 06:56] LABS: Glucose,Whole Blood 150 mg/dL (75-99)
[2021-06-29] MEDS: INSULIN ASPART (NovoLOG) 100 UNIT/ML VIAL SQ SCH ×4 (07:19→21:14)
[2021-06-29] MEDS: HEPARIN SODIUM,PORCINE/PF 5,000 UNIT/0.5 ML SYRINGE SQ SCH ×2 (07:19→21:10)
[2021-06-29] MEDS: PANTOPRAZOLE 40 MG TABLET PO SCH (07:19)
[2021-06-29] MEDS: guaiFENesin 600 MG TABLET.ER PO SCH ×2 (07:20→21:10)
[2021-06-29] MEDS: MORPHINE SULFATE ER 30 MG TABLET PO SCH ×2 (07:20→21:09)
[2021-06-29] MEDS: GABAPENTIN 100 MG CAP PO SCH ×3 (07:20→21:09)
[2021-06-29] MEDS: METOCLOPRAMIDE 5 MG TAB PO SCH ×3 (07:20→16:41)
[2021-06-29] MEDS ORDERED: AZITHROMYCIN 500 MG TAB PO SCH (09:00)
[2021-06-29] MEDS: BUDESONIDE 1 MG/2 ML NEBU INHALATION SCH ×2 (09:56→21:29)
[2021-06-29] MEDS: IPRATROPIUM-ALBUTEROL 3 ML NEB INHALATION SCH ×4 (09:56→21:29)
[2021-06-29] MEDS: FORMOTEROL FUMARATE 20 MCG/2 ML NEBU INHALATION SCH ×2 (09:56→21:29)
[2021-06-29 10:38] LABS: Basophils # (A) 0 X 10*3/uL (0.00-0.10); Basophils % (A) 0 %; Eosinophils # (A) 0 X 10*3/uL (0.04-0.35); Eosinophils % (A) 0 %; HCT 28.7 % (39.6-50.0); HGB 8.8 g/dL (13.0-17.0); Lymphocytes # (A) 0.19 X 10*3/uL (0.90-5.00); Lymphocytes % (A) 6.1 %; MCH 28.2 pg (27.0-32.0); MCHC 30.7 g/dL (32.0-37.0); Mean Platelet Volume 9.9 fL (9.5-12.2); Monocytes # (A) 0.09 X 10*3/uL (0.20-1.00); Monocytes % (A) 2.9 %; Neutrophils % (A) 90.7 %; Platelet Count 203 X 10*3/uL (140-440); RBC 3.12 X 10*6/uL (4.40-5.60); WBC 3.09 X 10*3/uL (4.50-10.00)
[2021-06-29 11:25] LABS: African American GFR (CKD) 134.9 (60.0-200.0); BUN/Creat Ratio 23.43 Ratio (12.00-20.00); Blood Urea Nitrogen 12.7 mg/dL (9.0-27.0); Calcium 8.2 mg/dL (8.7-10.3); Carbon Dioxide 24.9 mmol/L (20.0-27.5); Non-African American GFR(CKD) 116.4 (60.0-200.0); Potassium 4.6 mmol/L (3.5-5.5)
[2021-06-29 11:47] LABS: Glucose,Whole Blood 154 mg/dL (75-99)
[2021-06-29] MEDS: FOLIC ACID 1 MG TAB PO SCH (12:02)
[2021-06-29] MEDS: MULTIVITAMINS, THERA 1 EACH TAB PO SCH (12:02)
[2021-06-29] MEDS: THIAMINE 100 MG TAB PO SCH (12:02)
--- NOTE | 2021-06-29 12:27 | P.CONS ---
History of Present Illness - Reason for Consult Consult date: 06/28/21 lung Cancer Requesting physician: Rashard Daniels - Chief Complaint fever, sob - History of Present Illness Mr. bowers is a very pleasant male patient well known to us, primary oncologist Dr. morrison for NSCLCA. He has underwent chemotherapy with cisplatin, almta and completed definitive radiation and been maintained since November on Immune therapy. He has enlarged spleen in which we have been watching. Last exam did reveal this may have increased. Dr. Medina also follows. he presents with increased SOB. Pulmonary following and infection Past Medical History Past Medical History: Cancer, COPD, GERD/Reflux Additional Past Medical History / Comment(s): back pain, Lung Cancer History of Any Multi-Drug Resistant Organisms: None Reported Past Surgical History: No Surgical Hx Reported Past Anesthesia/Blood Transfusion Reactions: No Reported Reaction Additional Past Anesthesia/Blood Transfusion Reaction / Comm: has never had anesthesia Past Psychological History: Anxiety Smoking Status: Former smoker Past Alcohol Use History: None Reported Past Drug Use History: None Reported - Past Family History Father Additional Family Medical History / Comment(s): Lung Cancer Mother Family Medical History: No Reported History Medications and Allergies Home Medications Medication Instructions Recorded Confirmed Type Albuterol Nebulized [Ventolin 2.5 mg INHALATION RT-Q6H PRN 07/08/20 06/28/21 History Nebulized] Fluticasone/Umeclidin/Vilanter 1 puff INHALATION RT-DAILY 11/19/20 06/28/21 History [Trelegy Ellipta 200-62.5-25] Omeprazole 40 mg PO DAILY 11/19/20 06/28/21 History PARoxetine [Paxil] 20 mg PO HS 11/19/20 06/28/21 History Ibuprofen [Motrin] 400 mg PO TID PRN 12/25/20 06/28/21 History Metoclopramide [Reglan] 5 mg PO TID 06/11/21 06/28/21 History Sennosides [Senna] 17.2 mg PO HS 06/11/21 06/28/21 History Magnesium Oxide [Mag-Ox] 400 mg PO HS 06/28/21 06/28/21 History Ondansetron Odt [Zofran ODT] 4 mg PO Q6H PRN 06/28/21 06/28/21 History Pembrolizumab [Keytruda] 200 mg IVP Q21D 06/28/21 06/28/21 History Amoxic-Pot Clav 875-125Mg 1 tab PO Q12HR 5 Days #10 tab 07/03/21 Rx [Augmentin 875-125] Budesonide [Pulmicort Flexhaler] 2 puff INHALATION BID 30 Days #1 07/03/21 Rx each Folic Acid 1 mg PO DAILY@1200 #30 tab 07/03/21 Rx Gabapentin [Neurontin] 300 mg PO TID #90 cap 07/03/21 Rx Ipratropium-Albuterol Nebulize 3 ml INHALATION RT-QID 30 Days #90 07/03/21 Rx [Duoneb 0.5 mg-3 mg/3 ml Soln] ml Multivitamins, Thera [Multivitamin 1 each PO DAILY@1200 #30 tab 07/03/21 Rx (formulary)] Sennosides-Docusate Sodium 2 each PO BID 30 Days #60 tab 07/03/21 Rx [Senokot-S] Thiamine [Vitamin B-1] 100 mg PO DAILY@1200 #30 tab 07/03/21 Rx fentaNYL 75MCG/HR PATCH [Duragesic 1 patch TRANSDERM Q72H #3 patch 07/03/21 Rx 75MCG/HR] guaiFENesin [Mucinex] 1,200 mg PO Q12HR #20 tablet 07/03/21 Rx oxyCODONE-APAP 10-325MG [Percocet 1 each PO Q4HR PRN #45 tab 07/03/21 Rx 10-325 mg] polyethylene glycoL 3350 [Miralax] 17 gm PO DAILY #30 packet 07/03/21 Rx predniSONE 10 mg PO DIRECTED #30 tab 07/03/21 Rx Allergies Allergy/AdvReac Type Severity Reaction Status Date / Time No Known Allergies Allergy Verified 06/28/21 07:56 Physical Exam Vitals: Vital Signs Temp Pulse Pulse Resp BP BP Pulse Ox 06/28/21 10:48 98.0 F 69 18 127/84 97 06/28/21 09:27 76 06/28/21 09:20 76 06/28/21 04:28 76 19 124/77 96 06/28/21 03:25 101.4 F H 91 26 H 128/80 97 Intake and Output 06/27/21 06/28/21 06/28/21 22:59 06:59 14:59 Other: Voiding Method Toilet Weight 48.081 kg 48.081 kg Results CBC & Chem 7: 07/03/21 05:37 07/01/21 04:08 Labs: Abnormal Lab Results - Last 24 Hours (Table) 06/28/21 06/28/21 Range/Units 05:15 05:15 RBC 2.94 L (4.30-5.90) m/uL Hgb 8.6 L D (13.0-17.5) gm/dL Hct 26.4 L (39.0-53.0) % Lymphocytes # 0.4 L (1.0-4.8) k/uL Sodium 129 L (137-145) mmol/L Creatinine 0.51 L (0.66-1.25) mg/dL Glucose 106 H (74-99) mg/dL Calcium 7.8 L (8.4-10.2) mg/dL Total Bilirubin <0.1 L (0.2-1.3) mg/dL AST 15 L (17-59) U/L Total Protein 5.2 L (6.3-8.2) g/dL Albumin 2.5 L (3.5-5.0) g/dL Assessment and Plan (1) Anemia Current Visit: Yes Status: Acute Code(s): D64.9 - ANEMIA, UNSPECIFIED SNOMED Code(s): 943476685 (2) COPD exacerbation Current Visit: Yes Status: Acute Code(s): J44.1 - CHRONIC OBSTRUCTIVE PULMONARY DISEASE W (ACUTE) EXACERBATION SNOMED Code(s): 321436225 (3) Fever Current Visit: Yes Status: Acute Code(s): R50.9 - FEVER, UNSPECIFIED SNOMED Code(s): 860204136 (4) Hyponatremia Current Visit: Yes Status: Acute Code(s): E87.1 - HYPO-OSMOLALITY AND H YPONATREMIA SNOMED Code(s): 01304963 (5) Lung cancer Current Visit: Yes Status: Acute Code(s): C34.90 - MALIGNANT NEOPLASM OF UNSP PART OF UNSP BRONCHUS OR LUNG SNOMED Code(s): 747381707 Plan: Assessment and recommendations: Fever: 101.4 T max on Admission - - Await ruiz cultures - Ensure Blood cultures from central line if applicable Acute on Chronic Hypoxic Respiratory failure - CTA ordered to assess for PE NSCLCA: - Follows Dr. Morrison and receives monotherapy with Keytruda Plan: - Continue supportive care and await results of ruiz culture and CTA
--- NOTE | 2021-06-29 13:35 | P.PN ---
Subjective Progress Note Date: 06/29/21 Principal diagnosis: Fever Blood cultures 1/2 positive CTA without PE Objective - Vital Signs Vital signs: Vital Signs Temp 98.2 F 06/29/21 07:51 Pulse 75 06/29/21 11:26 Resp 18 06/29/21 07:51 BP 121/81 06/29/21 07:51 Pulse Ox 94 L 06/29/21 07:51 Intake & Output 06/28/21 06/29/21 06/29/21 18:59 06:59 18:59 Intake Total 1350 Output Total 300 Balance 1350 -300 Weight 48.081 kg Intake: Intake, IV Titration 150 Amount Sodium Chloride 0.9% 1, 100 000 ml @ 100 mls/hr IV . Q10H [facility] Rx#:[id number] cefTRIAXone 1 gm In 50 Sodium Chloride 0.9% 50 ml @ 100 mls/hr IVPB Q24HR [facility] Rx#:[id number] Oral 1200 Output: Urine 300 Other: Voiding Method Toilet # Voids 2 1 # Bowel Movements 0 - Exam Telemedicine Visit today - Labs CBC & Chem 7: 06/29/21 04:30 06/29/21 04:30 Labs: Abnormal Lab Results - Last 24 Hours (Table) 06/28/21 06/28/21 06/28/21 Range/Units 09:50 15:33 15:33 WBC (4.50-10.00) X 10*3/uL RBC (4.40-5.60) X 10*6/uL Hgb (13.0-17.0) g/dL Hct (39.6-50.0) % MCHC (32.0-37.0) g/dL RDW (11.5-14.5) % Lymphocytes # (0.90-5.00) X 10*3/uL Monocytes # (0.20-1.00) X 10*3/uL Eosinophils # (0.04-0.35) X 10*3/uL ESR 70 H (0-15) mm/hr D-Dimer 0.89 H (<0.60) mg/L FEU Creatinine (0.6-1.5) mg/dL BUN/Creatinine Ratio (12.00-20.00) Ratio Glucose (70-110) mg/dL POC Glucose (mg/dL) (75-99) mg/dL Osmolality 277 L (280-301) mosm/kg Calcium (8.7-10.3) mg/dL C-Reactive Protein (<1.0) mg/dL 06/28/21 06/28/21 06/28/21 Range/Units 15:33 16:18 21:39 WBC (4.50-10.00) X 10*3/uL RBC (4.40-5.60) X 10*6/uL Hgb (13.0-17.0) g/dL Hct (39.6-50.0) % MCHC (32.0-37.0) g/dL RDW (11.5-14.5) % Lymphocytes # (0.90-5.00) X 10*3/uL Monocytes # (0.20-1.00) X 10*3/uL Eosinophils # (0.04-0.35) X 10*3/uL ESR (0-15) mm/hr D-Dimer (<0.60) mg/L FEU Creatinine (0.6-1.5) mg/dL BUN/Creatinine Ratio (12.00-20.00) Ratio Glucose (70-110) mg/dL POC Glucose (mg/dL) 133 H 129 H (75-99) mg/dL Osmolality (280-301) mosm/kg Calcium (8.7-10.3) mg/dL C-Reactive Protein 16.6 H (<1.0) mg/dL 06/29/21 06/29/21 06/29/21 Range/Units 04:30 04:30 06:55 WBC 3.09 L (4.50-10.00) X 10*3/uL RBC 3.12 L (4.40-5.60) X 10*6/uL Hgb 8.8 L (13.0-17.0) g/dL Hct 28.7 L (39.6-50.0) % MCHC 30.7 L (32.0-37.0) g/dL RDW 15.0 H (11.5-14.5) % Lymphocytes # 0.19 L (0.90-5.00) X 10*3/uL Monocytes # 0.09 L (0.20-1.00) X 10*3/uL Eosinophils # 0 L (0.04-0.35) X 10*3/uL ESR (0-15) mm/hr D-Dimer (<0.60) mg/L FEU Creatinine 0.5 L (0.6-1.5) mg/dL BUN/Creatinine Ratio 23.43 H (12.00-20.00) Ratio Glucose 177 H (70-110) mg/dL POC Glucose (mg/dL) 150 H (75-99) mg/dL Osmolality (280-301) mosm/kg Calcium 8.2 L (8.7-10.3) mg/dL C-Reactive Protein (<1.0) mg/dL 06/29/21 Range/Units 11:46 WBC (4.50-10.00) X 10*3/uL RBC (4.40-5.60) X 10*6/uL Hgb (13.0-17.0) g/dL Hct (39.6-50.0) % MCHC (32.0-37.0) g/dL RDW (11.5-14.5) % Lymphocytes # (0.90-5.00) X 10*3/uL Monocytes # (0.20-1.00) X 10*3/uL Eosinophils # (0.04-0.35) X 10*3/uL ESR (0-15) mm/hr D-Dimer (<0.60) mg/L FEU Creatinine (0.6-1.5) mg/dL BUN/Creatinine Ratio (12.00-20.00) Ratio Glucose (70-110) mg/dL POC Glucose (mg/dL) 154 H (75-99) mg/dL Osmolality (280-301) mosm/kg Calcium (8.7-10.3) mg/dL C-Reactive Protein (<1.0) mg/dL Microbiology - Last 24 Hours (Table) 06/28/21 09:50 Blood Culture Gram Stain - Preliminary Blood 06/28/21 09:50 Blood Culture - Final Blood Assessment and Plan (1) Anemia Current Visit: Yes Status: Acute Code(s): D64.9 - ANEMIA, UNSPECIFIED SNOMED Code(s): 445851479 (2) COPD exacerbation Current Visit: Yes Status: Acute Code(s): J44.1 - CHRONIC OBSTRUCTIVE PUL MONARY DISEASE W (ACUTE) EXACERBATION SNOMED Code(s): 120361718 (3) Fever Current Visit: Yes Status: Acute Code(s): R50.9 - FEVER, UNSPECIFIED SNOMED Code(s): 275253700 (4) Hyponatremia Current Visit: Yes Status: Acute Code(s): E87.1 - HYPO-OSMOLALITY AND HYPONATREMIA SNOMED Code(s): 56346741 (5) Lung cancer Current Visit: Yes Status: Acute Code(s): C34.90 - MALIGNANT NEOPLASM OF UNSP PART OF UNSP BRONCHUS OR LUNG SNOMED Code(s): 294085170 Plan: Assessment and recommendations: Fever: 101.4 T max on Admission - Blood Culture Positive gram negative Bacilli - Stop Rocephin and change to cefepime, consult placed for ongoing management per Dr. Otto (infectious disease) - Afebrile currently Acute on Chronic Hypoxic Respiratory failure - CTA ordered to assess for PE, negative - No direct comparision to assess if worsening malignancy although pulmonology is following and has confirmed the progressive nature of his malignancy evidence by the narrowing bronchus from tumor obstruction and growth - Pneumonitis potential, on immune therapy pulmonology following Methypred and PPI continued NSCLCA: - Follows Dr. Morrison and receives monotherapy with Keytruda Plan: - Continue supportive care
--- NOTE | 2021-06-29 14:24 | P.CNPUL ---
History of Present Illness Consult date: 06/29/21 Reason for consult: dyspnea, lung mass History of present illness: This is a 56-year-old male patient with known history of COPD and non-small cell lung cancer, locally invasive time of diagnosis and probably currently metastatic. Note that the patient diagnosis of non-small cell lung cancer was established approximately a year ago when the patient presented to us with a lung mass and at that time the patient came in with a suprahilar mass with a post obstructive pneumonia and the biopsy was consistent with poorly differentiated non-small cell lung cancer. The patient was referred to medical oncology. The patient was treated with accommodation of chemoradiation therapy and following that the patient was given immunotherapy and will believe that the patient has been taken Keytruda on outpatient basis. The patient had few hospitalization following that. He also has had few CAT scan of the chest. Yesterday came into the emergency department with worsening shortness of breath. He was also having some chest discomfort across his anterior chest bilaterally. No hemoptysis. No pleurisy. In the ED, temperature 11.4. He was getting a blood pressure 128/80. White cell count of 5.4 with a hemoglobin 8.6 and the sodium level was 129. COVID 19 50 was negative lactic acid level was at 1.1 daily calcium level was at 7.8, normal LFTs, normal electrolytes, BUN is at 12 with a creatinine of 0.5. CAT scan of the chest was done utilizing the CTA protocol. There is still evidence of a large soft tissue mass density in the right hilar area surrounding dry right mainstem bronchus and the bronchus intermedius causing significant narrowing of the bronchus intermedius and atelectasis of the right lower lobe segments. There was a inflammatory mass in the right lung base in addition to that a new onset mass in the left lower l obe,. Meanwhile, the blood culture came back positive for gram-negative bacillus. Currently the patient is on IV cefepime. Review of Systems Constitutional: Reports fatigue, Reports fever, Reports poor appetite, Reports weight gain Eyes: denies as per HPI, denies blurred vision, denies bulging eye, denies decreased vision, denies diplopia, denies discharge, denies dry eye, denies irritation, denies itching, denies pain, denies photophobia, denies loss of peripheral vision, denies loss of vision, denies tunnel vision/blind spots Ears: deny: decreased hearing, ear discharge, earache, tinnitus Ears, nose, mouth and throat: Reports as per HPI Breasts: absent: as per HPI, gynecomastia Cardiovascular: Reports decreased exercise tolerance, Reports dyspnea on exertion Respiratory: Reports cough, Reports dyspnea Gastrointestinal: Reports as per HPI Genitourinary: Reports as per HPI Musculoskeletal: Reports as per HPI Musculoskeletal: absent: ankle pain, ankle stiffness, ankle swelling, as per HPI, elbow pain, elbow stiffness, elbow swelling, foot pain, foot stiffness, foot swelling, hand pain, hand stiffness, hand swelling, hip pain, hip stiffness, hip swelling, knee pain, knee stiffness, knee swelling, shoulder pain, shoulder stiffness, shoulder swelling, wrist pain, wrist stiffness, wrist swelling Integumentary: Reports as per HPI Neurological: Reports as per HPI Psychiatric: Reports as per HPI Endocrine: Reports as per HPI Hematologic/Lymphatic: Reports as per HPI Allergic/Immunologic: Reports as per HPI Past Medical History Past Medical History: Cancer, COPD, GERD/Reflux Additional Past Medical History / Comment(s): back pain, no small cell lung cancer, COPD History of Any Multi-Drug Resistant Organisms: None Reported Past Surgical History: No Surgical Hx Reported Past Anesthesia/Blood Transfusion Reactions: No Reported Reaction Additional Past Anesthesia/Blood Transfusion Reaction / Comment(s): has never had anesthesia Past Psychological History: Anxiety Smoking Status: Former smoker Past Alcohol Use History: None Reported Past Drug Use History: None Reported - Past Family History Father Additional Family Medical History / Comment(s): Lung Cancer Mother Family Medical History: No Reported History Medications and Allergies Home Medications Medication Instructions Recorded Confirmed Type Albuterol Nebulized [Ventolin 2.5 mg INHALATION RT-Q6H PRN 07/08/20 06/28/21 History Nebulized] Fluticasone/Umeclidin/Vilanter 1 puff INHALATION RT-DAILY 11/19/20 06/28/21 History [Trelegy Ellipta 200-62.5-25] HYDROcodone/APAP 10-325MG [[place] 1 tab PO Q6H PRN 11/19/20 06/28/21 History 10-325] Morphine Sulfate ER [Ms Contin] 30 - 60 mg PO DIRECTED 11/19/20 06/28/21 History Omeprazole 40 mg PO DAILY 11/19/20 06/28/21 History PARoxetine [Paxil] 20 mg PO HS 11/19/20 06/28/21 History Ibuprofen [Motrin] 400 mg PO TID PRN 12/25/20 06/28/21 History Metoclopramide [Reglan] 5 mg PO TID 06/11/21 06/28/21 History Sennosides [Senna] 17.2 mg PO HS 06/11/21 06/28/21 History Gabapentin [Neurontin] 100 mg PO TID 06/28/21 06/28/21 History Magnesium Oxide [Mag-Ox] 400 mg PO HS 06/28/21 06/28/21 History Ondansetron Odt [Zofran Odt] 4 mg PO Q6H PRN 06/28/21 06/28/21 History Pembrolizumab [Keytruda] 200 mg IVP Q21D 06/28/21 06/28/21 History Allergies Allergy/AdvReac Type Severity Reaction Status Date / Time No Known Allergies Allergy Verified 06/28/21 07:56 Physical Exam Vitals: Vital Signs Temp Pulse Pulse Pulse Resp BP Pulse Ox 06/29/21 11:26 75 06/29/21 11:13 74 06/29/21 07:51 98.2 F 75 18 121/81 94 L 06/29/21 06:05 97.9 F 89 15 114/87 98 06/29/21 02:00 98.5 F 81 117/67 98 06/28/21 21:39 97.8 F 89 133/75 100 06/28/21 21:26 86 06/28/21 21:04 83 06/28/21 17:57 80 06/28/21 17:41 80 Intake and Output 06/28/21 06/29/21 06/29/21 22:59 06:59 14:59 Intake Total 1350 Output Total 300 Balance 1350 -300 Intake: Intake, IV Titration 150 Amount Sodium Chloride 0.9% 1, 100 000 ml @ 100 mls/hr IV . Q10H [facility] Rx#:[id number] cefTRIAXone 1 gm In 50 Sodium Chloride 0.9% 50 ml @ 100 mls/hr IVPB Q24HR [facility] Rx#:[id number] Oral 1200 Output: Urine 300 Other: # Voids 2 1 # Bowel Movements 0 GENERAL EXAM: Alert, very pleasant, 55-year-old male patient, on 4 liters of oxygen pulse ox 93%, comfortable in no apparent distress. HEAD: Normocephalic/atraumatic. EYES: Normal reaction of pupils, equal size. Conjunctiva pink, sclera white. NOSE: Clear with pink turbinates. THROAT: No erythema or exudates. NECK: No masses, no JVD, no thyroid enlargement, no adenopathy. CHEST: No chest wall deformity. Symmetrical expansion. LUNGS: Equal air entry with few scattered rhonchi in the right lung. Breath sounds are diminished in the right compared to left. CVS: Regular rate and rhythm, normal S1 and S2, no gallops, no murmurs, no rubs ABDOMEN: Soft, nontender. No hepatosplenomegaly, normal bowel sounds, no guarding or rigidity. EXTREMITIES: No clubbing, no edema, no cyanosis, 2+ pulses and upper and lower extremities. MUSCULOSKELETAL: Muscle strength and tone normal. SPINE: No scoliosis or deformity SKIN: No rashes CENTRAL NERVOUS SYSTEM: No focal deficits, tone is normal in all 4 extremities. PSYCHIATRIC: Alert and oriented -3. Appropriate affect. Intact judgment and insight. Results - Laboratory Findings CBC and BMP: 06/29/21 04:30 06/29/21 04:30 PT/INR, D-dimer D-Dimer 0.89 mg/L FEU (<0.60) H 06/28/21 15:33 Abnormal lab findings: Abnormal Labs 06/28/21 06/28/21 06/28/21 05:15 05:15 09:50 WBC RBC 2.94 L Hgb 8.6 L D Hct 26.4 L MCHC RDW Lymphocytes # 0.4 L Monocytes # Eosinophils # ESR D-Dimer Sodium 129 L Creatinine 0.51 L BUN/Creatinine Ratio Glucose 106 H POC Glucose (mg/dL) Osmolality 277 L Calcium 7.8 L Total Bilirubin <0.1 L AST 15 L C-Reactive Protein Total Protein 5.2 L Albumin 2.5 L 06/28/21 06/28/21 06/28/21 15:33 15:33 15:33 WBC RBC Hgb Hct MCHC RDW Lymphocytes # Monocytes # Eosinophils # ESR 70 H D-Dimer 0.89 H Sodium Creatinine BUN/Creatinine Ratio Glucose POC Glucose (mg/dL) Osmolality Calcium Total Bilirubin AST C-Reactive Protein 16.6 H Total Protein Albumin 06/28/21 06/28/21 06/29/21 16:18 21:39 04:30 WBC 3.09 L RBC 3.12 L Hgb 8.8 L Hct 28.7 L MCHC 30.7 L RDW 15.0 H Lymphocytes # 0.19 L Monocytes # 0.09 L Eosinophils # 0 L ESR D-Dimer Sodium Creatinine BUN/Creatinine Ratio Glucose POC Glucose (mg/dL) 133 H 129 H Osmolality Calcium Total Bilirubin AST C-Reactive Protein Total Protein Albumin 06/29/21 06/29/21 06/29/21 04:30 06:55 11:46 WBC RBC Hgb Hct MCHC RDW Lymphocytes # Monocytes # Eosinophils # ESR D-Dimer Sodium Creatinine 0.5 L BUN/Creatinine Ratio 23.43 H Glucose 177 H POC Glucose (mg/dL) 150 H 154 H Osmolality Calcium 8.2 L Total Bilirubin AST C-Reactive Protein Total Protein Albumin - Diagnostic Findings Chest x-ray: image reviewed Assessment and Plan Plan: 1 poorly differentiated non-small cell lung cancer, probably stage IV metastatic at this stage as the patient has further narrowing of the bronchus intermedius caused by the hilar mass causing tight narrowing of the bronchus intermedius. At the same time, there is another mass in the left lower lobe which radiographically looks quite malignant. Patient has an inflammatory mass like consolidation in the right lower lung posterior segment. Based on my review of the CAT scan images, I think there is interval progression while the patient being treated with immunotherapy/Keytruda. 2 gram-negative sepsis, likely post obstructive pneumonia involving the right lower lobe 3 COPD 4 shortness of breath, multifactorial secondary to above. Nevertheless, there is significant airway compromise and narrowing of the bronchus intermedius based on the most recent CAT scan findings 5 acute hypoxic respiratory failure currently on 4 L of oxygen by nasal cannula Plan Treat the sepsis with IV cefepime Monitor hemodynamics Continue bronchodilators and steroids for now The patient obviously will need a change in plan in terms of his cancer leland atment. Based on my review of the CAT scan images, there is interval progression and there is also evidence of significant narrowing of the bronchus intermedius and it is a high likelihood that the patient may end up collapsing his right middle lobe/right lower lobe area. There is also new onset mass in the left lower lobe and all of those are signs of disease progression. This was discussed with oncology.
[2021-06-29] MEDS ORDERED: CEFEPIME 2 GM in SODIUM CHLORIDE 0.9% 100 ML IVPB SCH (16:00)
[2021-06-29 16:29] LABS: Glucose,Whole Blood 195 mg/dL (75-99)
--- NOTE | 2021-06-29 18:04 | PN ---
PROGRESS NOTE DATE OF SERVICE: 06/29/2021 This 56-year-old gentleman was admitted with COPD acute exacerbation as well as acute middle lobe and lower lobe pneumonia, is being closely monitored at this time. No chest pain. No palpitations. No fever. Patient on broad spectrum IV antibiotics. PHYSICAL EXAMINATION: Alert and oriented x3. Pulse 85, blood pressure 150/76, respiration 18, temperature 97.6, pulse ox 98% on 4 L. HEENT: Conjunctivae normal. Oral mucosa moist. NECK: No jugular venous distention. No lymph node enlargement. CARDIOVASCULAR: S1, S2, muffled. No S3, no S4, RESPIRATORY: Diminished breath sounds at the bases. A few scattered rhonchi. ABDOMEN: Soft, nontender. LEGS: No edema, no swelling. NERVOUS SYSTEM: No focal deficits. LABS: Accu-Cheks noted. Other labs also noted. ASSESSMENT: 1. Chronic obstructive pulmonary disease acute exacerbation with possible acute right middle lobe and lower lobe pneumonia, possibly postobstructive. 2. Stage IV lung cancer. 3. COVID-19 ruled out. 4. Anemia, normocytic, possibly acute malignancy. 5. Hyponatremia, multifactorial. 6. Severe protein-calorie malnutrition, BMI of 16.5. 7. History of nicotine dependence. 8. History of GERD. 9. History of back pain. 10.History of anxiety. 11.FULL CODE. RECOMMENDATIONS: Recommend to continue current management and symptomatic treatment. Otherwise, continue with empiric antibiotics. Closely follow with multiple consultants. Repeat labs tomorrow. Further recommendations to follow. MMODL / IJN: [id number] /
[2021-06-29] MEDS: SENNOSIDES 8.6 MG TAB PO SCH (21:09)
[2021-06-29] MEDS: PARoxetine 20 MG TAB PO SCH (21:09)
[2021-06-29] MEDS: MAGNESIUM OXIDE 400 MG TAB PO SCH (21:10)
[2021-06-29 21:19] LABS: Glucose,Whole Blood 131 mg/dL (75-99)
[2021-06-30] MEDS: methylPREDNISolone SOD SUCCI 125 MG/2 ML VIAL IV SCH ×5 (00:21→23:01)
[2021-06-30] MEDS: HYDROcodone/APAP 10-325MG 1 EACH TAB PO PRN ×3 (00:22→17:36)
[2021-06-30] MEDS: SODIUM CHLORIDE 0.9% 1,000 ML IV SCH ×3 (03:32→08:22)
[2021-06-30 06:48] LABS: Glucose,Whole Blood 120 mg/dL (75-99)
[2021-06-30] MEDS: INSULIN ASPART (NovoLOG) 100 UNIT/ML VIAL SQ SCH ×4 (06:50→20:56)
[2021-06-30] MEDS: MORPHINE SULFATE ER 30 MG TABLET PO SCH (06:59)
[2021-06-30] MEDS: PANTOPRAZOLE 40 MG TABLET PO SCH (06:59)
[2021-06-30] MEDS: guaiFENesin 600 MG TABLET.ER PO SCH ×2 (07:00→20:52)
[2021-06-30] MEDS: METOCLOPRAMIDE 5 MG TAB PO SCH ×3 (07:01→17:10)
[2021-06-30] MEDS: GABAPENTIN 100 MG CAP PO SCH ×3 (07:01→20:53)
[2021-06-30] MEDS: HEPARIN SODIUM,PORCINE/PF 5,000 UNIT/0.5 ML SYRINGE SQ SCH ×2 (07:02→20:52)
[2021-06-30] MEDS: BUDESONIDE 1 MG/2 ML NEBU INHALATION SCH ×2 (07:43→20:38)
[2021-06-30] MEDS: IPRATROPIUM-ALBUTEROL 3 ML NEB INHALATION SCH ×4 (07:43→20:38)
[2021-06-30] MEDS: FORMOTEROL FUMARATE 20 MCG/2 ML NEBU INHALATION SCH ×2 (07:55→20:38)
[2021-06-30 09:09] LABS: Basophils # (A) 0.01 X 10*3/uL (0.00-0.10); Basophils % (A) 0.2 %; Eosinophils # (A) 0 X 10*3/uL (0.04-0.35); Eosinophils % (A) 0 %; HCT 28.6 % (39.6-50.0); HGB 8.6 g/dL (13.0-17.0); Lymphocytes # (A) 0.16 X 10*3/uL (0.90-5.00); Lymphocytes % (A) 2.6 %; MCH 27.7 pg (27.0-32.0); MCHC 30.1 g/dL (32.0-37.0); MCV 92.3 fL (80.0-97.0); Mean Platelet Volume 9.6 fL (9.5-12.2); Monocytes # (A) 0.26 X 10*3/uL (0.20-1.00); Monocytes % (A) 4.2 %; Neutrophils # (A) 5.68 X 10*3/uL (1.80-7.70); Neutrophils % (A) 92.7 %; Platelet Count 263 X 10*3/uL (140-440); RDW 14.9 % (11.5-14.5); WBC 6.13 X 10*3/uL (4.50-10.00)
[2021-06-30 09:31] LABS: African American GFR (CKD) 156.4 (60.0-200.0); Anion Gap 7.5 mmol/L (10.00-18.00); BUN/Creat Ratio 37.83 Ratio (12.00-20.00); Blood Urea Nitrogen 14.3 mg/dL (9.0-27.0); Calcium 8.5 mg/dL (8.7-10.3); Carbon Dioxide 25.9 mmol/L (20.0-27.5); Potassium 4.3 mmol/L (3.5-5.5)
[2021-06-30] MEDS: FOLIC ACID 1 MG TAB PO SCH (11:26)
[2021-06-30] MEDS: THIAMINE 100 MG TAB PO SCH (11:26)
[2021-06-30] MEDS: MULTIVITAMINS, THERA 1 EACH TAB PO SCH (11:27)
[2021-06-30 11:35] LABS: Glucose,Whole Blood 151 mg/dL (75-99)
[2021-06-30] MEDS ORDERED: CALCIUM CARBONATE 500 MG CHEWABLE PO PRN (12:36)
[2021-06-30] MEDS: IOPAMIDOL CONTRAST (ORAL USE) VIAL PO PRN ×2 (13:24→14:00)
[2021-06-30 14:45] VITALS: BMI 16.6
--- NOTE | 2021-06-30 15:40 | CT ---
EXAMINATION TYPE: CT abdomen pelvis wo con DATE OF EXAM: 06/30/2021 COMPARISON: CT 06/11/2021, 06/28/2021 HISTORY: abdominal pain and distention CT DLP: 404.8 mGycm Automated exposure control for dose reduction was used. TECHNIQUE: Helical acquisition of images from the lung bases through the pelvis. FINDINGS: Lack of intravenous contrast could compromise sensitivity. There are anasarca changes. LUNG BASES: there is abnormal increased attenuation at the lung bases which is similar to prior chest CT, underlying emphysema. AORTA: No significant abnormality is appreciated. LIVER/GB: No significant abnormality is appreciated. PANCREAS: No significant abnormality is seen. SPLEEN: Enlarged as on prior exams with areas of abnormal low attenuation. ADRENALS: No significant abnormality is seen. KIDNEYS: No significant interval change is seen cortical cysts suspected at the upper pole the right kidney, there is no hydronephrosis or renal stone bilaterally. REPRODUCTIVE ORGANS: There is calcification within the prostate. URINARY BLADDER: No significant abnormality is seen. BOWEL: Retained fecal debris is present throughout the distribution of much of the colon. There are some small bowel folds which show some wall thickening. FREE AIR: No Free Air is visible. ASCITES: None visible. PELVIC ADENOPATHY: None visualized. RETROPERITONEAL ADENOPATHY: No Retroperitoneal Adenopathy visible. OSSEOUS STRUCTURES: No significant abnormality is seen. IMPRESSION: PERSISTENT SPLENOMEGALY, SPLENIC MASS, ABNORMAL LOWER LOBE SOFT TISSUE NOTED WITHIN THE LUNGS. CORREL ATE FOR FECAL STASIS, ENTERITIS. NONCONTRAST EXAM.
[2021-06-30 16:47] LABS: Glucose,Whole Blood 106 mg/dL (75-99)
--- NOTE | 2021-06-30 16:53 | P.PN ---
Subjective Progress Note Date: 06/30/21 Principal diagnosis: Shortness of breath This is a 56-year-old male patient with known history of COPD and non-small cell lung cancer, locally invasive time of diagnosis and probably currently metastatic. Note that the patient diagnosis of non-small cell lung cancer was established approximately a year ago when the patient presented to us with a lung mass and at that time the patient came in with a suprahilar mass with a post obstructive pneumonia and the biopsy was consistent with poorly differentiated non-small cell lung cancer. The patient was referred to medical oncology. The patient was treated with accommodation of chemoradiation therapy and following that the patient was given immunotherapy and will believe that the patient has been taken Keytruda on outpatient basis. The patient had few hospitalization following that. He also has had few CAT scan of the chest. Yesterday came into the emergency department with worsening shortness of breath. He was also having some chest discomfort across his anterior chest bilaterally. No hemoptysis. No pleurisy. In the ED, temperature 11.4. He was getting a blood pressure 128/80. White cell count of 5.4 with a hemoglobin 8.6 and the sodium level was 129. COVID 19 50 was negative lactic acid level was at 1.1 daily calcium level was at 7.8, normal LFTs, normal electrolytes, BUN is at 12 with a creatinine of 0.5. CAT scan of the chest was done utilizing the CTA protocol. There is still evidence of a large soft tissue mass density in the right hilar area surrounding dry right mainstem bronchus and the bronchus intermedius causing significant narrowing of the bronchus intermedius and atelectasis of the right lower lobe segments. There was a inflammatory mass in the right lung base in addition to that a new onset mass in the left lower lobe,. Meanwhile, the blood culture came back positive for gram-negative bacillus. Currently the patient is on IV cefepime. On 06/30/2021 patient seen in follow-up on medical surgical floor, he states his breathing is much better, feeling better, he is still coughing is producing some yellow colored phlegm. He was able to give us a sputum sample, lung sounds reveal diffuse wheezes, he is currently on 3 L of oxygen pulse ox of 99%, this morning she was completing of some abdominal pain, and he is going down for a CT of the abdomen for evaluation of the abdominal pain, he has been afebrile, hemodynamically has been stable, no complaints of chest discomfort, no nausea or vomiting, his blood cultures were positive for pseudomonas aeruginosa, he is cur rently on Zosyn, ID service is following. He remains on nebulized bronchodilators, he is on IV steroids at 60 mg every 6 hours. Today's labs have been reviewed, his white blood cell count of 6.13, hemoglobin is 8.6, electrolytes are within normal limits, BUN is 14 creatinine 0.4. Pro-calcitonin level was 0.20. His serum sodium has significantly improved and is up to 137 on today's labs. Objective - Vital Signs Vital signs: Vital Signs Temp 97.8 F 06/30/21 14:00 Pulse 84 06/30/21 14:00 Resp 16 06/30/21 14:00 BP 131/82 06/30/21 14:00 Pulse Ox 100 06/30/21 14:00 Intake & Output 06/29/21 06/30/21 06/30/21 18:59 06:59 18:59 Intake Total 1360 Balance 1360 Weight 48.081 kg Intake: Intake, IV Titration 200 Amount Sodium Chloride 0.9% 1, 200 000 ml @ 100 mls/hr IV . Q10H [facility] Rx#:[id number] Oral 1160 Other: Voiding Method Toilet # Voids 4 2 1 # Bowel Movements 0 0 - Exam GENERAL EXAM: Alert, very pleasant, 56-year-old white male, on 3 L of oxygen pulse ox is 99%, mildly short of breath with conversation, but appears to be in no acute distress HEAD: Normocephalic/atraumatic. EYES: Normal reaction of pupils, equal size. Conjunctiva pink, sclera white. NOSE: Clear with pink turbinates. THROAT: No erythema or exudates. NECK: No masses, no JVD, no thyroid enlargement, no adenopathy. CHEST: No chest wall deformity. Symmetrical expansion. LUNGS: no crackles, rhonchi or dullness. Patient has diffuse wheezes, diminished breath sounds at the left base CVS: Regular rate and rhythm, normal S1 and S2, no gallops, no murmurs, no rubs ABDOMEN: Soft, nontender. No hepatosplenomegaly, normal bowel sounds, no guarding or rigidity. EXTREMITIES: No clubbing, no edema, no cyanosis, 2+ pulses and upper and lower extremities. MUSCULOSKELETAL: Muscle strength and tone normal. SPINE: No scoliosis or deformity SKIN: No rashes CENTRAL NERVOUS SYSTEM: Alert and oriented -3. No focal deficits, tone is normal in all 4 extremities. PSYCHIATRIC: Alert and oriented -3. Appropriate affect. Intact judgment and insight. - Labs CBC & Chem 7: 06/30/21 04:18 06/30/21 04:18 Labs: Abnormal Lab Results - Last 24 Hours (Table) 06/29/21 06/30/21 06/30/21 Range/Units 21:14 04:18 04:18 RBC 3.10 L (4.40-5.60) X 10*6/uL Hgb 8.6 L (13.0-17.0) g/dL Hct 28.6 L (39.6-50.0) % MCHC 30.1 L (32.0-37.0) g/dL RDW 14.9 H (11.5-14.5) % Lymphocytes # 0.16 L (0.90-5.00) X 10*3/uL Eosinophils # 0 L (0.04-0.35) X 10*3/uL Anion Gap 7.50 L (10.00-18.00) mmol/L Creatinine 0.4 L (0.6-1.5) mg/dL BUN/Creatinine Ratio 37.83 H (12.00-20.00) Ratio Glucose 140 H (70-110) mg/dL POC Glucose (mg/dL) 131 H (75-99) mg/dL Calcium 8.5 L (8.7-10.3) mg/dL Procalcitonin (0.02-0.09) ng/mL 06/30/21 06/30/21 06/30/21 Range/Units 04:18 06:46 11:33 RBC (4.40-5.60) X 10*6/uL Hgb (13.0-17.0) g/dL Hct (39.6-50.0) % MCHC (32.0-37.0) g/dL RDW (11.5-14.5) % Lymphocytes # (0.90-5.00) X 10*3/uL Eosinophils # (0.04-0.35) X 10*3/uL Anion Gap (10.00-18.00) mmol/L Creatinine (0.6-1.5) mg/dL BUN/Creatinine Ratio (12.00-20.00) Ratio Glucose (70-110) mg/dL POC Glucose (mg/dL) 120 H 151 H (75-99) mg/dL Calcium (8.7-10.3) mg/dL Procalcitonin 0.20 H (0.02-0.09) ng/mL Microbiology - Last 24 Hours (Table) 06/28/21 09:50 Blood Culture Gram Stain - Preliminary Blood Blood Culture - Preliminary Pseudomonas aeruginosa Assessment and Plan Plan: Assessment: #1. Poorly differentiated non-small cell lung cancer, probably stage IV metastatic at this stage, patient has narrowing of the bronchus intermedius caused by the hilar mass causing tight narrowing of the bronchus intermedius. Patient has another mass in the left lower lobe which radiographically also looks quite malignant. Patient has an inflammatory masslike consolidation in the right lower lung posterior segment, and likely there is a interval progression compared to his recent computed tomography scan of the chest. #2. Non-small cell lung cancer, treated with immunotherapy Keytruda #3. Gram-negative sepsis, related to pseudomonas aeruginosa in the blood cultures likely related to postobstructive pneumonia involving the right lower lobe #4. History of COPD #5. Shortness of breath, cough, phlegm production related to the above #6. Acute hypoxic respiratory failure currently on 3 L of oxygen #7. Abdominal pain, and CT of the abdomen showed persistent splenomegaly, splenic mass, retained fecal debris Plan: Continue IV steroids Antibiotics per ID service recommendations, patient is currently on Zosyn Continue nebulized bronchodilators CT of the abdomen results have been noted Patient states his breathing and coughing are improving Continue weaning FiO2 We'll continue to follow his clinical course I performed a history & physical examination of the patient and discussed their management with my nurse practitioner, Tori Villaseñor. I reviewed the nurse practitioner's note and agree with the documented findings and plan of care. Lung sounds are positive for diffuse wheezes, and diminished breath sounds at the left base throughout the lung alexandra. The findings and the impression was discussed with the patient. I attest to the documentation by the nurse pract kunal. Time with Patient: Less than 30
--- NOTE | 2021-06-30 17:27 | PN ---
PROGRESS NOTE DATE OF SERVICE: 06/30/2021 This 56-year-old gentleman who was admitted with COPD, acute exacerbation, with acute middle lobe pneumonia is also on antibiotic. No chest pain. No palpitations. No fever. The patient also had a CT scan of the abdomen and pelvis which was reviewed personally by me. CT scan of the abdomen and pelvis showed persistent splenomegaly, splenic mass, abnormal lower lobe soft tissue. No chest pain. No palpitations. No fever. Past medical history reviewed. REVIEW OF SYSTEMS: CARDIOVASCULAR SYSTEM: No angina. RESPIRATION: As mentioned earlier. GI: As mentioned earlier. : No dysuria. NERVOUS SYSTEM: No numbness, weakness. CURRENT MEDICATIONS: Reviewed. They include Eldridge 10, Ventolin, DuoNeb, Senna. Doses are reviewed. PHYSICAL EXAMINATION: Patient is alert and oriented x3. Pulse 75, blood pressure 130/79, respiration 18, temperature 97.4, pulse ox 99% on 3 L. HEENT: Conjunctivae normal. NECK: No jugular venous distention. CARDIOVASCULAR: S1, S2 muffled. RESPIRATION: Breath sounds diminished at the bases. A few scattered rhonchi. ABDOMEN: Soft, nontender. No mass palpable. NERVOUS SYSTEM: Higher functions as mentioned earlier. Moves all 4 limbs. No focal motor or sensory deficit. LYMPHATICS: No lymph node palpable in neck, axillae or groin. SKIN: No ulcer, rash, bleeding. JOINTS: No active deforming arthropathy. LABS: WBC 6.3, hemoglobin is 8.6, sodium 136, potassium 4.3. Glucose 140. Procalcitonin is 0.2. ASSESSMENT: 1. Chronic obstructive pulmonary disease, acute exacerbation, with possible acute right middle lobe and lower lobe pneumonia, possibly postobstructive, possibly Gram- negative, with stage IV lung cancer. 2. Splenic mass. 3. COVID-19 ruled out. 4. Anemia, normocytic, possibly acute secondary to malignancy. 5. Hyponatremia, multifactorial. 6. Severe protein-calorie malnutrition. BMI of 16.5. 7. History of nicotine dependence. 8. History of gastroesophageal reflux disease. 9. History of back pain. 10.History of anxiety. 11.FULL CODE. RECOMMENDATIONS AND DISCUSSION: I recommend to continue current medications, continue with the monitoring, symptomatic treatment. Otherwise at this time I would closely follow. Empiric antibiotics. The patient is on IV Zosyn. The patient is on IV steroids as well. Repeat labs will be ordered. Closely follow with multiple consultants. MMODL / IJN: [id number] /
--- NOTE | 2021-06-30 19:16 | P.PN ---
Subjective Progress Note Date: 06/30/21 Principal diagnosis: Fever Patient seen this afternoon daughter was not present but was called later. Review of CT is felt to be progressive per pulmonology, recent imaging per Dr. Morrison did not show worsening disease. Concern of rapid disease progression also treatment of infectious inflammatory process and positive bacteremia. Objective - Vital Signs Vital signs: Vital Signs Temp 97.8 F 06/30/21 14:00 Pulse 84 06/30/21 14:00 Resp 16 06/30/21 14:00 BP 131/82 06/30/21 14:00 Pulse Ox 100 06/30/21 14:00 Intake & Output 06/29/21 06/30/21 06/30/21 18:59 06:59 18:59 Intake Total 2440 Balance 2440 Weight 48.081 kg Intake: Intake, IV Titration 200 Amount Sodium Chloride 0.9% 1, 200 000 ml @ 100 mls/hr IV . Q10H [facility] Rx#:[id number] Oral 2240 Other: Voiding Method Toilet # Voids 4 2 3 # Bowel Movements 0 0 - Exam Alert and oriented NAD RLL Rhonchi Diminished Left lower Abdomen: Hernia reducible noted BLE No edema - Labs CBC & Chem 7: 06/30/21 04:18 06/30/21 04:18 Labs: Abnormal Lab Results - Last 24 Hours (Table) 06/29/21 06/30/21 06/30/21 Range/Units 21:14 04:18 04:18 RBC 3.10 L (4.40-5.60) X 10*6/uL Hgb 8.6 L (13.0-17.0) g/dL Hct 28.6 L (39.6-50.0) % MCHC 30.1 L (32.0-37.0) g/dL RDW 14.9 H (11.5-14.5) % Lymphocytes # 0.16 L (0.90-5.00) X 10*3/uL Eosinophils # 0 L (0.04-0.35) X 10*3/uL Anion Gap 7.50 L (10.00-18.00) mmol/L Creatinine 0.4 L (0.6-1.5) mg/dL BUN/Creatinine Ratio 37.83 H (12.00-20.00) Ratio Glucose 140 H (70-110) mg/dL POC Glucose (mg/dL) 131 H (75-99) mg/dL Calcium 8.5 L (8.7-10.3) mg/dL Procalcitonin (0.02-0.09) ng/mL 06/30/21 06/30/21 06/30/21 Range/Units 04:18 06:46 11:33 RBC (4.40-5.60) X 10*6/uL Hgb (13.0-17.0) g/dL Hct (39.6-50.0) % MCHC (32.0-37.0) g/dL RDW (11.5-14.5) % Lymphocytes # (0.90-5.00) X 10*3/uL Eosinophils # (0.04-0.35) X 10*3/uL Anion Gap (10.00-18.00) mmol/L Creatinine (0.6-1.5) mg/dL BUN/Creatinine Ratio (12.00-20.00) Ratio Glucose (70-110) mg/dL POC Glucose (mg/dL) 120 H 151 H (75-99) mg/dL Calcium (8.7-10.3) mg/dL Procalcitonin 0.20 H (0.02-0.09) ng/mL 06/30/21 Range/Units 16:46 RBC (4.40-5.60) X 10*6/uL Hgb (13.0-17.0) g/dL Hct (39.6-50.0) % MCHC (32.0-37.0) g/dL RDW (11.5-14.5) % Lymphocytes # (0.90-5.00) X 10*3/uL Eosinophils # (0.04-0.35) X 10*3/uL Anion Gap (10.00-18.00) mmol/L Creatinine (0.6-1.5) mg/dL BUN/Creatinine Ratio (12.00-20.00) Ratio Glucose (70-110) mg/dL POC Glucose (mg/dL) 106 H (75-99) mg/dL Calcium (8.7-10.3) mg/dL Procalcitonin (0.02-0.09) ng/mL Microbiology - Last 24 Hours (Table) 06/28/21 09:50 Blood Culture Gram Stain - Preliminary Blood Blood Culture - Preliminary Pseudomonas aeruginosa Assessment and Plan (1) Anemia Current Visit: Yes Status: Acute Code(s): D64.9 - ANEMIA, UNSPECIFIED SNOMED Code(s): 660617292 (2) COPD exacerbation Current Visit: Yes Status: Acute Code(s): J44.1 - CHRONIC OBSTRUCTIVE PULMONARY DISEASE W (ACUTE) EXACERBATION SNOMED Code(s): 146459154 (3) Fever Current Visit: Yes Status: Acute Code(s): R50.9 - FEVER, UNSPECIFIED SNOMED Code(s): 528084402 (4) Hyponatremia Current Visit: Yes Status: Acute Code(s): E87.1 - HYPO-OSMOLALITY AND HYPONATREMIA SNOMED Code(s): 07577291 (5) Lung cancer Current Visit: Yes Status: Acute Code(s): C34.90 - MALIGNANT NEOPLASM OF UNSP PART OF UNSP BRONCHUS OR LUNG SNOMED Code(s): 815106667 Plan: Assessment and recommendations: Fever: 101.4 T max on Admission - Blood Culture Positive gram negative Bacilli - Stop Rocephin and change to cefepime, consult placed for ongoing management per Dr. Otto (infectious disease), now resulted as pseudomonas - ZOsyn started and cefepime D/C - Afebrile currently Acute on Chronic Hypoxic Respiratory failure - CTA ordered to assess for PE, negative - No direct comparision to assess if worsening malignancy although pulmonology is following and has confirmed the progressive nature of his malignancy evidence by the narrowing bronchus from tumor obstruction and growth - Pneumonitis potential, on immune therapy pulmonology following Methypred and PPI continued - ?new area on left lower lung NSCLCA: - Follows Dr. Morrison and receives monotherapy with Keytruda Plan: - Continue supportive care Case discussed with Dr. Morrison, primary oncologist. Will await improvement from bacteremia and reassess at follow-up visit regarding treatment plan. Will ask Dr. Medina to evaluate for possible progressive and if any benefit of radiation. Discussed with Daughter who is concerned about his pain in back that is worsening and not controlled no matter how much morphine he receives, we will trial fentanyl and oxycodone versus norco and MSER. He is also scheduled for plexus block in a few weeks as outpatient MRI of the Thoracic Spine to closer evaluate painful and possible nerve involved process, Ativan prior to MRI Discussed with Dr. Medina and will consult to assist. CT abdomen and Pelvis reviewed and splenomegaly remains significant and can definitely be contributing to pain in the region he expresses. Await 24 hours on new pain regimen and Senna-S for prevention of narcotic induced constipation Bacteremia +pseudomonas - Await ID rec. Time with Patient: Greater than 30
[2021-06-30] MEDS: polyethylene glycoL 3350 17 GM POWD.PACK PO SCH (20:51)
[2021-06-30] MEDS: PARoxetine 20 MG TAB PO SCH (20:53)
[2021-06-30] MEDS: MAGNESIUM OXIDE 400 MG TAB PO SCH (20:53)
[2021-06-30] MEDS: SENNOSIDES-DOCUSATE SODIUM 1 EACH TAB PO SCH (20:53)
[2021-06-30 21:07] LABS: Glucose,Whole Blood 130 mg/dL (75-99)
--- NOTE | 2021-06-30 22:17 | PN ---
PROGRESS NOTE DATE OF SERVICE: 06/30/2021 REASON FOR FOLLOWUP: Pseudomonas bacteremia, source likely pneumonia. INTERVAL HISTORY: The patient is afebrile. The patient is breathing slightly comfortably. The patient denies having any chest pain or shortness of breath. No worsening cough or sputum production. No abdominal pain or diarrhea. PHYSICAL EXAMINATION: Blood pressure 131/82 with a pulse of 84, temperature 97.8. He is 100% on 3 L nasal cannula. General description is a middle-aged male up in the chair in no distress. Respiratory system: Unlabored breathing, decreased intensity of breath sounds. No wheeze. Heart S1, S2. Regular rate and rhythm. Abdomen soft, no tenderness. LABS: Hemoglobin 8.7, white count 6.13, creatinine 0.4. Procalcitonin 0.20. Blood culture repeat is negative so far. DIAGNOSTIC IMPRESSION AND PLAN: Patient with Pseudomonas aeruginosa bacteremia. Source is likely pneumonia in this patient with postobstructive consolidation of the right upper lobe and concern for aspiration pneumonitis. Patient to continue with Zosyn, waiting for the final sensitivity to determine discharge antibiotics. Could be more likely IV, and monitor clinical course closely. MMODL / IJN: [id number] /
[2021-06-30] MEDS: PIPERACILLIN-TAZOBACTAM 3.375 GM in SODIUM CHLORIDE 0.9% 100 ML IVPB SCH (22:41)
[2021-06-30] MEDS: oxyCODONE-APAP 10-325MG 1 EACH TAB PO PRN (22:59)
[2021-07-01 05:01] LABS: ALT 14 U/L (4-49); AST 14 U/L (17-59); African American GFR (CKD) >90 (>60 ml/min/1.73 sqM); Albumin 2.6 g/dL (3.5-5.0); Alkaline Phosphatase 60 U/L (38-126); Anion Gap 6 mmol/L; Blood Urea Nitrogen 14 mg/dL (9-20); Calcium 8.5 mg/dL (8.4-10.2); Carbon Dioxide 30 mmol/L (22-30); Chloride 98 mmol/L (98-107); Globulin 2.7 g/dL; Glucose 113 mg/dL (74-99); Non-African American GFR(CKD) >90 (>60 ml/min/1.73 sqM); Potassium 4.8 mmol/L (3.5-5.1); Sodium 134 mmol/L (137-145); Total Bilirubin 0.3 mg/dL (0.2-1.3); Total Protein 5.3 g/dL (6.3-8.2)
[2021-07-01] MEDS: PIPERACILLIN-TAZOBACTAM 3.375 GM in SODIUM CHLORIDE 0.9% 100 ML IVPB SCH ×3 (05:21→20:56)
[2021-07-01] MEDS: methylPREDNISolone SOD SUCCI 125 MG/2 ML VIAL IV SCH ×3 (05:21→17:46)
[2021-07-01 06:55] LABS: Glucose,Whole Blood 135 mg/dL (75-99)
[2021-07-01] MEDS: guaiFENesin 600 MG TABLET.ER PO SCH ×2 (06:57→20:55)
[2021-07-01] MEDS: PANTOPRAZOLE 40 MG TABLET PO SCH (06:57)
[2021-07-01] MEDS: METOCLOPRAMIDE 5 MG TAB PO SCH ×3 (06:57→17:46)
[2021-07-01] MEDS: GABAPENTIN 100 MG CAP PO SCH ×3 (06:57→20:54)
[2021-07-01] MEDS: oxyCODONE-APAP 10-325MG 1 EACH TAB PO PRN ×3 (06:57→17:46)
[2021-07-01] MEDS: SENNOSIDES-DOCUSATE SODIUM 1 EACH TAB PO SCH ×2 (06:58→20:54)
[2021-07-01] MEDS: HEPARIN SODIUM,PORCINE/PF 5,000 UNIT/0.5 ML SYRINGE SQ SCH ×2 (06:58→20:54)
[2021-07-01] MEDS: polyethylene glycoL 3350 17 GM POWD.PACK PO SCH (06:59)
[2021-07-01] MEDS: INSULIN ASPART (NovoLOG) 100 UNIT/ML VIAL SQ SCH ×4 (07:05→20:55)
[2021-07-01 09:03] LABS: Basophils # (A) 0 X 10*3/uL (0.00-0.10); Basophils % (A) 0 %; Eosinophils # (A) 0 X 10*3/uL (0.04-0.35); Eosinophils % (A) 0 %; HCT 29.2 % (39.6-50.0); HGB 8.8 g/dL (13.0-17.0); Lymphocytes % (A) 3.9 %; MCH 28.1 pg (27.0-32.0); MCHC 30.1 g/dL (32.0-37.0); MCV 93.3 fL (80.0-97.0); Mean Platelet Volume 9.6 fL (9.5-12.2); Monocytes % (A) 3.9 %; Neutrophils # (A) 4.66 X 10*3/uL (1.80-7.70); Neutrophils % (A) 91.2 %; Platelet Count 280 X 10*3/uL (140-440); RBC 3.13 X 10*6/uL (4.40-5.60); WBC 5.11 X 10*3/uL (4.50-10.00)
[2021-07-01] MEDS: BUDESONIDE 1 MG/2 ML NEBU INHALATION SCH ×2 (09:16→21:08)
[2021-07-01] MEDS: FORMOTEROL FUMARATE 20 MCG/2 ML NEBU INHALATION SCH ×2 (09:16→21:08)
[2021-07-01] MEDS: IPRATROPIUM-ALBUTEROL 3 ML NEB INHALATION SCH ×4 (09:16→21:08)
[2021-07-01 11:22] LABS: Glucose,Whole Blood 118 mg/dL (75-99)
[2021-07-01] MEDS: MULTIVITAMINS, THERA 1 EACH TAB PO SCH (12:06)
[2021-07-01] MEDS: FOLIC ACID 1 MG TAB PO SCH (12:06)
[2021-07-01] MEDS: THIAMINE 100 MG TAB PO SCH (12:06)
--- NOTE | 2021-07-01 15:01 | P.PN ---
Subjective Progress Note Date: 07/01/21 Principal diagnosis: Shortness of breath This is a 56-year-old male patient with known history of COPD and non-small cell lung cancer, locally invasive time of diagnosis and probably currently metastatic. Note that the patient diagnosis of non-small cell lung cancer was established approximately a year ago when the patient presented to us with a lung mass and at that time the patient came in with a suprahilar mass with a post obstructive pneumonia and the biopsy was consistent with poorly differentiated non-small cell lung cancer. The patient was referred to medical oncology. The patient was treated with accommodation of chemoradiation therapy and following that the patient was given immunotherapy and will believe that the patient has been taken Keytruda on outpatient basis. The patient had few hospitalization following that. He also has had few CAT scan of the chest. Yesterday came into the emergency department with worsening shortness of breath. He was also having some chest discomfort across his anterior chest bilaterally. No hemoptysis. No pleurisy. In the ED, temperature 11.4. He was getting a blood pressure 128/80. White cell count of 5.4 with a hemoglobin 8.6 and the sodium level was 129. COVID 19 50 was negative lactic acid level was at 1.1 daily calcium level was at 7.8, normal LFTs, normal electrolytes, BUN is at 12 with a creatinine of 0.5. CAT scan of the chest was done utilizing the CTA protocol. There is still evidence of a large soft tissue mass density in the right hilar area surrounding dry right mainstem bronchus and the bronchus intermedius causing significant narrowing of the bronchus intermedius and atelectasis of the right lower lobe segments. There was a inflammatory mass in the right lung base in addition to that a new onset mass in the left lower lobe,. Meanwhile, the blood culture came back positive for gram-negative bacillus. Currently the patient is on IV cefepime. On 06/30/2021 patient seen in follow-up on medical surgical floor, he states his breathing is much better, feeling better, he is still coughing is producing some yellow colored phlegm. He was able to give us a sputum sample, lung sounds reveal diffuse wheezes, he is currently on 3 L of oxygen pulse ox of 99%, this morning she was completing of some abdominal pain, and he is going down for a CT of the abdomen for evaluation of the abdominal pain, he has been afebrile, hemodynamically has been stable, no complaints of chest discomfort, no nausea or vomiting, his blood cultures were positive for pseudomonas aeruginosa, he is cur rently on Zosyn, ID service is following. He remains on nebulized bronchodilators, he is on IV steroids at 60 mg every 6 hours. Today's labs have been reviewed, his white blood cell count of 6.13, hemoglobin is 8.6, electrolytes are within normal limits, BUN is 14 creatinine 0.4. Pro-calcitonin level was 0.20. His serum sodium has significantly improved and is up to 137 on today's labs. On 07/01/2021 patient is seen in follow-up on medical surgical floor. He states his breathing is better today, still has diffuse rhonchi coughing, but not producing much phlegm. He is on 3 L of oxygen today pulse ox is 97%, afebrile, hemodynamically stable, denies any abdominal pain today, CT scan of the abdomen and pelvis was completed showing splenic mass, fecal stasis, enteritis. Patient is complaining of back pain which he says is improving since admission, he is going for a thoracic spine MRI today. He remains on IV Solu-Medrol 60 mg every 6 hours, nebulized bronchodilators. Remains on Zosyn for pseudomonal bacteremia. ID service is following, follow blood cultures have shown no growth thus far. White blood cell count is 5.1, hemoglobin is 8.8, sodium is 134, respiratory electrolytes and renal profile were unremarkable. Pro-calcitonin level is 0.20 Objective - Vital Signs Vital signs: Vital Signs Temp 97.7 F 07/01/21 07:41 Pulse 72 07/01/21 13:08 Resp 18 07/01/21 07:41 BP 126/78 07/01/21 07:41 Pulse Ox 97 07/01/21 07:41 Intake & Output 06/30/21 07/01/21 07/01/21 18:59 06:59 18:59 Intake Total 2440 Balance 2440 Weight 48.081 kg Intake: Intake, IV Titration 200 Amount Sodium Chloride 0.9% 1, 200 000 ml @ 100 mls/hr IV . Q10H KERRIE Rx#:[id number] Oral 2240 Other: Voiding Method Toilet Toilet # Voids 3 2 # Bowel Movements 0 0 - Exam GENERAL EXAM: Alert, very pleasant, 56-year-old white male, on 3 L of oxygen pulse ox is 97%, mildly short of breath with conversation, but appears to be in no acute distress HEAD: Normocephalic/atraumatic. EYES: Normal reaction of pupils, equal size. Conjunctiva pink, sclera white. NOSE: Clear with pink turbinates. THROAT: No erythema or exudates. NECK: No masses, no JVD, no thyroid enlargement, no adenopathy. CHEST: No chest wall deformity. Symmetrical expansion. LUNGS: no crackles, rhonchi or dullness. Patient has diffuse wheezes, diminished breath sounds at the left base CVS: Regular rate and rhythm, normal S1 and S2, no gallops, no murmurs, no rubs ABDOMEN: Soft, nontender. No hepatosplenomegaly, normal bowel sounds, no guarding or rigidity. EXTREMITIES: No clubbing, no edema, no cyanosis, 2+ pulses and upper and lower extremities. MUSCULOSKELETAL: Muscle strength and tone normal. SPINE: No scoliosis or deformity SKIN: No rashes CENTRAL NERVOUS SYSTEM: Alert and oriented -3. No focal deficits, tone is normal in all 4 extremities. PSYCHIATRIC: Alert and oriented -3. Appropriate affect. Intact judgment and insight. - Labs CBC & Chem 7: 07/01/21 04:08 07/01/21 04:08 Labs: Abnormal Lab Results - Last 24 Hours (Table) 06/30/21 06/30/21 07/01/21 Range/Units 16:46 20:56 04:08 RBC 3.13 L (4.40-5.60) X 10*6/uL Hgb 8.8 L (13.0-17.0) g/dL Hct 29.2 L (39.6-50.0) % MCHC 30.1 L (32.0-37.0) g/dL RDW 15.0 H (11.5-14.5) % Immature Gran # 0.05 H (0.00-0.04) X 10*3/uL Lymphocytes # 0.20 L (0.90-5.00) X 10*3/uL Eosinophils # 0 L (0.04-0.35) X 10*3/uL Sodium (137-145) mmol/L Creatinine (0.66-1.25) mg/dL Glucose (74-99) mg/dL POC Glucose (mg/dL) 106 H 130 H (75-99) mg/dL AST (17-59) U/L Total Protein (6.3-8.2) g/dL Albumin (3.5-5.0) g/dL 07/01/21 07/01/21 07/01/21 Range/Units 04:08 06:54 11:20 RBC (4.40-5.60) X 10*6/uL Hgb (13.0-17.0) g/dL Hct (39.6-50.0) % MCHC (32.0-37.0) g/dL RDW (11.5-14.5) % Immature Gran # (0.00-0.04) X 10*3/uL Lymphocytes # (0.90-5.00) X 10*3/uL Eosinophils # (0.04-0.35) X 10*3/uL Sodium 134 L (137-145) mmol/L Creatinine 0.49 L (0.66-1.25) mg/dL Glucose 113 H (74-99) mg/dL POC Glucose (mg/dL) 135 H 118 H (75-99) mg/dL AST 14 L (17-59) U/L Total Protein 5.3 L (6.3-8.2) g/dL Albumin 2.6 L (3.5-5.0) g/dL Microbiology - Last 24 Hours (Table) 06/28/21 09:50 Blood Culture Gram Stain - Final Blood Blood Culture - Final Pseudomonas aeruginosa 06/30/21 04:18 Blood Culture - Preliminary Blood No Growth after 24 hours 06/29/21 18:47 Blood Culture - Preliminary Blood No Growth after 24 hours Assessment and Plan Plan: Assessment: #1. Poorly differentiated non-small cell lung cancer, probably stage IV metastatic at this stage, patient has narrowing of the bronchus intermedius caused by the hilar mass causing tight narrowing of the bronchus intermedius. Patient has another mass in the left lower lobe which radiographically also looks quite malignant. Patient has an inflammatory masslike consolidation in the right lower lung posterior segment, and likely there is a interval progression compared to his recent computed tomography scan of the chest. #2. Non-small cell lung cancer, treated with immunotherapy Keytruda #3. Gram-negative sepsis, related to pseudomonas aeruginosa in the blood cultures likely related to postobstructive pneumonia involving the right lower lobe #4. History of COPD #5. Shortness of breath, cough, phlegm production related to the above #6. Acute hypoxic respiratory failure currently on 3 L of oxygen #7. Abdominal pain, and CT of the abdomen showed persistent splenomegaly, splenic mass, retained fecal debris #8. Back pain, MRI of the thoracic spine is pending for evaluation of possibility of skeletal metastasis to the spine Plan: Continue IV steroids Still quite congested but breathing a little easier Antibiotics per ID service recommendations, patient is currently on Zosyn Continue nebulized bronchodilators Continue weaning FiO2 We'll continue to follow his clinical course I performed a history & physical examination of the patient and discussed their management with my nurse practitioner, Tori Villaseñor. I reviewed the nurse practitioner's note and agree with the documented findings and plan of care. Ashley ng sounds are positive for diffuse wheezes, and diminished breath sounds at the left base throughout the lung alexandra. The findings and the impression was discussed with the patient. I attest to the documentation by the nurse practitioner. Time with Patient: Less than 30
--- NOTE | 2021-07-01 15:44 | MR ---
EXAMINATION TYPE: MR thoracic spine wo/w con DATE OF EXAM: 07/01/2021 COMPARISON: CTA chest June 28, 2021 HISTORY: Worsening back pain, ?cord/nerve involvement. History of central right lung cancer. TECHNIQUE: Multiplanar, multisequence imaging of thoracic spine is performed without and with IV cont rast, patient injected with 5 cc of gadolinium best. FINDINGS: Exam is suboptimal as is degraded by patient motion. Difficult to accurately count levels. Spinal cord shows normal caliber and signal as it courses the thoracic spine. Slight levoconvex scoli osis centered upper thoracic spine redemonstrated Vertebral body heights remain satisfactory. Disc s pace heights fairly well preserved. Large right lung mass or neoplasm central right upper to midlung coronal image 9 but the upper to mid right thoracic vertebra greatest along the anterior aspect. Hete rogeneous enhancing tissue extends along the right aspect of the upper to mid thoracic vertebra seen best postcontrast sagittal image 9. No definitive spinal canal invasion but difficult to exclude some involvement in the exiting right-sided nerves. Axial images are nondiagnostic as there is significan t motion artifact degradation. IMPRESSION: As above.
[2021-07-01 16:44] LABS: Glucose,Whole Blood 125 mg/dL (75-99)
--- NOTE | 2021-07-01 17:01 | PN ---
PROGRESS NOTE DATE OF SERVICE: 07/01/2021 This 56-year-old gentleman who was admitted with COPD acute exacerbation, possible acute right lower lobe pneumonia. He is being closely monitored. Patient is slated to have thoracic spine MRI today recommended Oncology which showed exam was suboptimal. Multiple findings are noted. No chest pain. No palpitations. No fever. PHYSICAL EXAMINATION: Alert and oriented x3. Pulse is 68, blood pressure 124/78, respiration 18, temperature 97.7, pulse ox 97% on 3 L. HEENT: Conjunctivae normal. Oral mucosa moist. NECK: No jugular venous distention. No lymph node enlargement. CARDIOVASCULAR: S1, S2, muffled. No S3, no S4, RESPIRATORY: Diminished breath sounds at the bases. A few scattered rhonchi. ABDOMEN: Soft, nontender. LEGS: No edema, no swelling. NERVOUS SYSTEM: No focal deficits. LABS: WBC 5.1, hemoglobin is 8.8, sodium 130, potassium 4.8. ASSESSMENT: 1. Chronic obstructive pulmonary disease acute exacerbation with possible acute right middle lobe pneumonia, lower lobe pneumonia possibly, postobstructive, possibly gram-negative with stage IV lung cancer. 2. Splenic mass. 3. Covid-19 ruled out. 4. Anemia, normocytic, possibly acute secondary to malignancy. 5. Hyponatremia, multifactorial. 6. Severe protein-calorie malnutrition, BMI of 16.5. 7. History of nicotine dependence. 8. History of GERD. 9. History of back pain. 10.History of anxiety. 11.FULL CODE. RECOMMENDATIONS AND DISCUSSION: I recommend to continue current management and symptomatic treatment. Continue with bronchodilators. Continue the steroids. Continue the antibiotics. Closely follow with multiple consultants. Guarded prognosis because of multiple complex medical issues and further recommendations to follow. Patient is on IV Zosyn. Infectious Disease, Pulmonary and Hematology/Oncology following the patient closely. MMODL / IJN: [id number] /
[2021-07-01] MEDS ORDERED: LORazepam 2 MG/ML INJ IV ONE (18:55)
[2021-07-01 20:09] LABS: Glucose,Whole Blood 157 mg/dL (75-99)
[2021-07-01] MEDS: PARoxetine 20 MG TAB PO SCH (20:54)
[2021-07-01] MEDS: MAGNESIUM OXIDE 400 MG TAB PO SCH (20:54)
--- NOTE | 2021-07-01 23:28 | PN ---
PROGRESS NOTE DATE OF SERVICE: 07/01/2021 REASON FOR FOLLOWUP: Pseudomonas aeruginosa bacteremia likely pneumonia. INTERVAL HISTORY: Patient is afebrile. The patient is breathing more comfortably. The patient denies having any chest pain. The patient denies any worsening cough or sputum production. No abdominal pain. No diarrhea. PHYSICAL EXAMINATION: Blood pressure 122/76, pulse of 83, temperature 97.6. He is 97% on 2 L nasal cannula. General description is a middle-aged male up in the bed in no distress. Respiratory system: Unlabored breathing, decreased intensity of breath sounds. No wheeze. Heart S1, S2. Regular rate and rhythm. Abdomen soft. No tenderness. LABS: Hemoglobin is 8.8, white count 5.1, creatinine 0.49. Repeat blood culture negative. DIAGNOSTIC IMPRESSION AND PLAN: Patient with Pseudomonas aeruginosa bacteremia. Source is likely possible obstructive pneumonia with sputum and blood culture negative. Patient to continue Zosyn. May benefit from outpatient antibiotic on discharge if he has coverage. Continue supportive care. MMODL / IJN: [id number] /
[2021-07-02] MEDS: oxyCODONE-APAP 10-325MG 1 EACH TAB PO PRN ×6 (00:26→23:15)
[2021-07-02] MEDS: methylPREDNISolone SOD SUCCI 125 MG/2 ML VIAL IV SCH ×4 (00:26→17:47)
[2021-07-02] MEDS: PIPERACILLIN-TAZOBACTAM 3.375 GM in SODIUM CHLORIDE 0.9% 100 ML IVPB SCH ×3 (05:41→21:36)
[2021-07-02] MEDS: BUDESONIDE 1 MG/2 ML NEBU INHALATION SCH ×2 (07:15→19:27)
[2021-07-02] MEDS: IPRATROPIUM-ALBUTEROL 3 ML NEB INHALATION SCH ×4 (07:15→19:27)
[2021-07-02] MEDS: FORMOTEROL FUMARATE 20 MCG/2 ML NEBU INHALATION SCH ×2 (07:21→19:27)
[2021-07-02 07:36] LABS: Glucose,Whole Blood 141 mg/dL (75-99)
[2021-07-02] MEDS: GABAPENTIN 100 MG CAP PO SCH ×3 (08:29→21:34)
[2021-07-02] MEDS: guaiFENesin 600 MG TABLET.ER PO SCH ×2 (08:29→21:34)
[2021-07-02] MEDS: METOCLOPRAMIDE 5 MG TAB PO SCH ×3 (08:29→17:45)
[2021-07-02] MEDS: INSULIN ASPART (NovoLOG) 100 UNIT/ML VIAL SQ SCH ×4 (08:30→21:34)
[2021-07-02] MEDS: PANTOPRAZOLE 40 MG TABLET PO SCH (08:30)
[2021-07-02] MEDS: HEPARIN SODIUM,PORCINE/PF 5,000 UNIT/0.5 ML SYRINGE SQ SCH ×2 (08:30→21:35)
[2021-07-02] MEDS: SENNOSIDES-DOCUSATE SODIUM 1 EACH TAB PO SCH ×2 (08:30→21:34)
[2021-07-02] MEDS: polyethylene glycoL 3350 17 GM POWD.PACK PO SCH (10:10)
[2021-07-02 10:41] LABS: Basophils % (A) 0 %; Eosinophils % (A) 0 %; HCT 31.8 % (39.0-53.0); Hypochromasia Moderate; Lymphocytes # (A) 0.2 k/uL (1.0-4.8); Lymphocytes % (A) 3 %; MCH 29.6 pg (25.0-35.0); MCHC 31.5 g/dL (31.0-37.0); MCV 93.9 fL (80.0-100.0); Mean Platelet Volume 7.4; Monocytes # (A) 0.3 k/uL (0-1.0); Monocytes % (A) 4 %; Neutrophils # (A) 6.3 k/uL (1.3-7.7); Neutrophils % (A) 91 %; Platelet Count 344 k/uL (150-450); RBC 3.39 m/uL (4.30-5.90); RDW 15.5 % (11.5-15.5); WBC 6.8 k/uL (3.8-10.6)
[2021-07-02 11:29] LABS: Glucose,Whole Blood 133 mg/dL (75-99)
[2021-07-02] MEDS: FOLIC ACID 1 MG TAB PO SCH (12:42)
[2021-07-02] MEDS: MULTIVITAMINS, THERA 1 EACH TAB PO SCH (12:42)
[2021-07-02] MEDS: THIAMINE 100 MG TAB PO SCH (12:42)
--- NOTE | 2021-07-02 13:19 | P.PN ---
Subjective Progress Note Date: 07/02/21 Principal diagnosis: Shortness of breath This is a 56-year-old male patient with known history of COPD and non-small cell lung cancer, locally invasive time of diagnosis and probably currently metastatic. Note that the patient diagnosis of non-small cell lung cancer was established approximately a year ago when the patient presented to us with a lung mass and at that time the patient came in with a suprahilar mass with a post obstructive pneumonia and the biopsy was consistent with poorly differentiated non-small cell lung cancer. The patient was referred to medical oncology. The patient was treated with accommodation of chemoradiation therapy and following that the patient was given immunotherapy and will believe that the patient has been taken Keytruda on outpatient basis. The patient had few hospitalization following that. He also has had few CAT scan of the chest. Yesterday came into the emergency department with worsening shortness of breath. He was also having some chest discomfort across his anterior chest bilaterally. No hemoptysis. No pleurisy. In the ED, temperature 11.4. He was getting a blood pressure 128/80. White cell count of 5.4 with a hemoglobin 8.6 and the sodium level was 129. COVID 19 50 was negative lactic acid level was at 1.1 daily calcium level was at 7.8, normal LFTs, normal electrolytes, BUN is at 12 with a creatinine of 0.5. CAT scan of the chest was done utilizing the CTA protocol. There is still evidence of a large soft tissue mass density in the right hilar area surrounding dry right mainstem bronchus and the bronchus intermedius causing significant narrowing of the bronchus intermedius and atelectasis of the right lower lobe segments. There was a inflammatory mass in the right lung base in addition to that a new onset mass in the left lower lobe,. Meanwhile, the blood culture came back positive for gram-negative bacillus. Currently the patient is on IV cefepime. On 06/30/2021 patient seen in follow-up on medical surgical floor, he states his breathing is much better, feeling better, he is still coughing is producing some yellow colored phlegm. He was able to give us a sputum sample, lung sounds reveal diffuse wheezes, he is currently on 3 L of oxygen pulse ox of 99%, this morning she was completing of some abdominal pain, and he is going down for a CT of the abdomen for evaluation of the abdominal pain, he has been afebrile, hemodynamically has been stable, no complaints of chest discomfort, no nausea or vomiting, his blood cultures were positive for pseudomonas aeruginosa, he is cur rently on Zosyn, ID service is following. He remains on nebulized bronchodilators, he is on IV steroids at 60 mg every 6 hours. Today's labs have been reviewed, his white blood cell count of 6.13, hemoglobin is 8.6, electrolytes are within normal limits, BUN is 14 creatinine 0.4. Pro-calcitonin level was 0.20. His serum sodium has significantly improved and is up to 137 on today's labs. On 07/01/2021 patient is seen in follow-up on medical surgical floor. He states his breathing is better today, still has diffuse rhonchi coughing, but not producing much phlegm. He is on 3 L of oxygen today pulse ox is 97%, afebrile, hemodynamically stable, denies any abdominal pain today, CT scan of the abdomen and pelvis was completed showing splenic mass, fecal stasis, enteritis. Patient is complaining of back pain which he says is improving since admission, he is going for a thoracic spine MRI today. He remains on IV Solu-Medrol 60 mg every 6 hours, nebulized bronchodilators. Remains on Zosyn for pseudomonal bacteremia. ID service is following, follow blood cultures have shown no growth thus far. White blood cell count is 5.1, hemoglobin is 8.8, sodium is 134, respiratory electrolytes and renal profile were unremarkable. Pro-calcitonin level is 0.20 On 07/02/2021 patient seen in follow-up on medical surgical floor, he is breathing more comfortably today, still congested, not bringing up much phlegm. Lung sounds are positive for diffuse rhonchi and wheezes, slightly improved, he remains on nebulized bronchodilators, Zosyn, and IV steroids with Solu-Medrol 60 mg every 6 hours. He normally wears 2 L of oxygen at home on the regular basis on as-needed basis, he is currently on 3 L, pulse ox is 97%, his been afebrile, hemodynamically has been stable. He had a follow-up blood cultures in view of pseudomonal bacteremia and follow-up blood cultures remain negative, continues on Zosyn. Vital Signs have been reviewed, blood cell count is 6.8, hemoglobin is 10. Patient had MRI of the thoracic spine view of his back pain to rule out possibility of skeletal metastasis, and there was no definitive spinal canal invasion but some involvement in the exiting right sided nurse was difficult to exclude. Objective - Vital Signs Vital signs: Vital Signs Temp 97.9 F 07/02/21 08:00 Pulse 82 07/02/21 11:21 Resp 18 07/02/21 08:00 BP 107/73 07/02/21 08:00 Pulse Ox 97 07/02/21 08:00 Intake & Output 07/01/21 07/02/21 07/02/21 18:59 06:59 18:59 Intake Total 1160 Balance 1160 Intake: Oral 1160 Other: Voiding Method Toilet Toilet # Voids 4 - Exam GENERAL EXAM: Alert, very pleasant, 56-year-old white male, on 3 L of oxygen pulse ox is 97%, mildly short of breath with conversation, but appears to be in no acute distress HEAD: Normocephalic/atraumatic. EYES: Normal reaction of pupils, equal size. Conjunctiva pink, sclera white. NOSE: Clear with pink turbinates. THROAT: No erythema or exudates. NECK: No masses, no JVD, no thyroid enlargement, no adenopathy. CHEST: No chest wall deformity. Symmetrical expansion. LUNGS: no crackles, rhonchi or dullness. Patient has diffuse wheezes, diminished breath sounds at the left base CVS: Regular rate and rhythm, normal S1 and S2, no gallops, no murmurs, no rubs ABDOMEN: Soft, nontender. No hepatosplenomegaly, normal bowel sounds, no guarding or rigidity. EXTREMITIES: No clubbing, no edema, no cyanosis, 2+ pulses and upper and lower extremities. MUSCULOSKELETAL: Muscle strength and tone normal. SPINE: No scoliosis or deformity SKIN: No rashes CENTRAL NERVOUS SYSTEM: Alert and oriented -3. No focal deficits, tone is normal in all 4 extremities. PSYCHIATRIC: Alert and oriented -3. Appropriate affect. Intact judgment and insight. - Labs CBC & Chem 7: 07/02/21 10:12 07/01/21 04:08 Labs: Abnormal Lab Results - Last 24 Hours (Table) 07/01/21 07/01/21 07/02/21 Range/Units 16:42 20:07 07:34 RBC (4.30-5.90) m/uL Hgb (13.0-17.5) gm/dL Hct (39.0-53.0) % Lymphocytes # (1.0-4.8) k/uL POC Glucose (mg/dL) 125 H 157 H 141 H (75-99) mg/dL 07/02/21 07/02/21 Range/Units 10:12 11:28 RBC 3.39 L (4.30-5.90) m/uL Hgb 10.0 L (13.0-17.5) gm/dL Hct 31.8 L (39.0-53.0) % Lymphocytes # 0.2 L (1.0-4.8) k/uL POC Glucose (mg/dL) 133 H (75-99) mg/dL Microbiology - Last 24 Hours (Table) 06/30/21 04:18 Blood Culture - Preliminary Blood No Growth after 48 hours 06/29/21 18:47 Blood Culture - Preliminary Blood No Growth after 48 hours 06/30/21 13:08 Blood Culture - Preliminary Blood No Growth after 24 hours 06/28/21 09:50 Blood Culture Gram Stain - Final Blood Blood Culture - Final Pseudomonas aeruginosa Assessment and Plan Plan: Assessment: #1. Poorly differentiated non-small cell lung cancer, probably stage IV metastatic at this stage, patient has narrowing of the bronchus intermedius caused by the hilar mass causing tight narrowing of the bronchus intermedius. Patient has another mass in the left lower lobe which radiographically also looks quite malignant. Patient has an inflammatory masslike consolidation in the right lower lung posterior segment, and likely there is a interval pr ogression compared to his recent computed tomography scan of the chest. #2. Non-small cell lung cancer, treated with immunotherapy Keytruda #3. Gram-negative sepsis, related to pseudomonas aeruginosa in the blood cultures likely related to postobstructive pneumonia involving the right lower lobe #4. History of COPD #5. Shortness of breath, cough, phlegm production related to the above #6. Acute hypoxic respiratory failure currently on 3 L of oxygen #7. Abdominal pain, and CT of the abdomen showed persistent splenomegaly, splenic mass, retained fecal debris #8. Back pain, MRI of the thoracic spine completed, showing heterogeneous enhancing tissue extending along the right aspect of the upper to mid thoracic vertebra, no definitive spinal canal invasion Plan: Patient breathing more comfortable, however still dyspneic and congested and wheezy Continue IV steroids at 40 mg every 8 hours Oxygen has been dropped down to 2 L Continues on Zosyn for pseudomonal bacteremia, follow blood cultures have been negative Will need a recommendation from infectious disease doctor for antibiotics upon discharge From pulmonary perspective patient could benefit from another 24 hours inpatient treatment We'll plan discharge for tomorrow if remains stable and continues to improve Patient is also awaiting to speak to the medical oncology in regards to the results of the thoracic spine MRI and to discuss plan of treatment I performed a history & physical examination of the patient and discussed their management with my nurse practitioner, Tori Villaseñor. I reviewed the nurse practitioner's note and agree with the documented findings and plan of care. Lung sounds are positive for diffuse wheezes, and diminished breath sounds at the left base throughout the lung alexandra. The findings and the impression was discussed with the patient. I attest to the documentation by the nurse practitioner. Time with Patient: Less than 30
[2021-07-02] MEDS ORDERED: HYDROmorphone 1 MG/ML 1 ML SYRINGE IVP PRN (14:19)
--- NOTE | 2021-07-02 16:32 | P.PN ---
Subjective Progress Note Date: 07/02/21 Principal diagnosis: Fever Mr. Amado breathing has improved since admission, but his pain is still significant, however he admits much more controlled on fentanyl and percocet. th erefore will increase fentanyl patch to 75 today and continue percocet and send prescriptions for both at discharge. Will likely need prior auth therefore will need to send to inpatient [facility] pharmacy and ensure patient has in hand prior to discharge. Objective - Vital Signs Vital signs: Vital Signs Temp 97.9 F 07/02/21 08:00 Pulse 88 07/02/21 08:00 Resp 18 07/02/21 08:00 BP 107/73 07/02/21 08:00 Pulse Ox 97 07/02/21 08:00 Intake & Output 07/01/21 07/02/21 07/02/21 18:59 06:59 18:59 Intake Total 1160 Balance 1160 Intake: Oral 1160 Other: Voiding Method Toilet # Voids 4 - Exam Telemedicine Visit today - Labs CBC & Chem 7: 07/02/21 10:12 07/01/21 04:08 Labs: Abnormal Lab Results - Last 24 Hours (Table) 07/01/21 07/01/21 07/01/21 Range/Units 11:20 16:42 20:07 POC Glucose (mg/dL) 118 H 125 H 157 H (75-99) mg/dL 07/02/21 Range/Units 07:34 POC Glucose (mg/dL) 141 H (75-99) mg/dL Microbiology - Last 24 Hours (Table) 06/30/21 04:18 Blood Culture - Preliminary Blood No Growth after 48 hours 06/29/21 18:47 Blood Culture - Preliminary Blood No Growth after 48 hours 06/30/21 13:08 Blood Culture - Preliminary Blood No Growth after 24 hours 06/28/21 09:50 Blood Culture Gram Stain - Final Blood Blood Culture - Final Pseudomonas aeruginosa Assessment and Plan (1) Anemia Current Visit: Yes Status: Acute Code(s): D64.9 - ANEMIA, UNSPECIFIED SNOMED Code(s): 003812402 (2) COPD exacerbation Current Visit: Yes Status: Acute Code(s): J44.1 - CHRONIC OBSTRUCTIVE PULMONARY DISEASE W (ACUTE) EXACERBATION SNOMED Code(s): 783975718 (3) Fever Current Visit: Yes Status: Acute Code(s): R50.9 - FEVER, UNSPECIFIED SNOMED Code(s): 197195215 (4) Hyponatremia Current Visit: Yes Status: Acute Code(s): E87.1 - HYPO-OSMOLALITY AND HYPONATREMIA SNOMED Code(s): 00806349 (5) Lung cancer Current Visit: Yes Status: Acute Code(s): C34.90 - MALIGNANT NEOPLASM OF UNSP PART OF UNSP BRONCHUS OR LUNG SNOMED Code(s): 197615508 Plan: Assessment and recommendations: Fever: 101.4 T max on Admission - afebrile - Blood Culture Positive gram negative Bacilli - Stop Rocephin and change to cefepime, consult placed for ongoing management per Dr. Otto (infectious disease) - Afebrile currently Acute on Chronic Hypoxic Respiratory failure - CTA ordered to assess for PE, negative - No direct comparision to assess if worsening malignancy although pulmonology is following and has confirmed the progressive nature of his malignancy evidence by the narrowing bronchus from tumor obstruction and growth - Pneumonitis potential, on immune therapy pulmonology following Methypred and PPI continued NSCLCA: - Follows Dr. Morrison and receives monotherapy with Keytruda Plan: - Continue supportive care - Ensure change in pain medications is filled without issue at our pharmacy prior to discharge, continue aggressive bowel regimen - await Dr. Shafer evaluation regarding pain and progressive disease versus inflam/infection - IV antibiotics per Infectious disease
--- NOTE | 2021-07-02 16:39 | P.CONS ---
History of Present Illness - Reason for Consult Consult date: 07/02/21 pneumonia/lung ca Requesting physician: Herb Mackay - Chief Complaint cough, dyspnea - History of Present Illness The patient is a 56-year-old male with a history of a stage VIOLA (cT4, cN1, M1b) poorly differentiated non-small cell lung cancer of the right upper lung with initial imaging suspicious for a splenic metastasis. He underwent 4 cycles of Carbo/Alimta/Keytruda. He underwent consolidative RT to the large right lung mass due to pain from chest-wall invasion and minimal distant disease finishing on 12/06/2020. He unfortunately had progression of the large lesion in his spleen and this was not amenable to SBRT. He underwent a definitive course of RT finishing on 03/27/2021 as this was his only site of distant disease. The patient was hospitalized on June 28, 2021 secondary to increased dyspnea and fever. He states he had noticed increasing shortness of breath over the 2-3 days prior to his admission. He tested negative for Covid, however his initial blood cultures did show pseudomonas. A CTA of the chest was performed on June 28, which revealed no evidence of PE. There were however consolidative changes in the lung base worrisome for pneumonitis versus pneumonia, as well as a masslike density in the left lower lung which was new. The patient's right upper lobe tumor did seem to show increased narrowing of the right bronchus. A CT scan of the abdomen and pelvis on June 30 showed persistent splenomegaly with splenic mass, as well as evidence of constipation. The patient underwent an MRI of the thoracic spine on July 01. This was significantly degraded secondary to movement. The right upper lung mass was not appreciated involving the spinal canal, but certainly could be impinging on some exiting nerve roots. At this time, the patient reports that over the past few days of his breathing has significantly improved. He reports no significant cough or fevers at this time. He is currently down to 2 L of oxygen, which she uses intermittently at home anyways. His biggest complaint at this time is persistent mid thoracic right sided back pain. This is been an ongoing problem for some time since the patient's initial cancer diagnosis. He states however this has been more difficult to control recently. Review of Systems Constitutional: Denies chills, Denies fever Eyes: bilateral decreased vision Ears, nose, mouth and throat: Denies headache Cardiovascular: Reports dyspnea on exertion, Denies chest pain Respiratory: Reports cough, Denies congestion, Denies dyspnea Gastrointestinal: Reports abdominal pain, Denies BRBPR, Denies change in bowel h abits Genitourinary: Denies discharge, Denies dysuria Musculoskeletal: Denies frequent falls Integumentary: Denies rash Neurological: Denies change in speech, Denies confusion Past Medical History Past Medical History: Cancer, COPD, GERD/Reflux Additional Past Medical History / Comment(s): back pain, no small cell lung cancer, COPD History of Any Multi-Drug Resistant Organisms: None Reported Past Surgical History: No Surgical Hx Reported Past Anesthesia/Blood Transfusion Reactions: No Reported Reaction Additional Past Anesthesia/Blood Transfusion Reaction / Comm: has never had anesthesia Past Psychological History: Anxiety Smoking Status: Former smoker Past Alcohol Use History: None Reported Past Drug Use History: None Reported - Past Family History Father Additional Family Medical History / Comment(s): Lung Cancer Mother Family Medical History: No Reported History Medications and Allergies Home Medications Medication Instructions Recorded Confirmed Type Albuterol Nebulized [Ventolin 2.5 mg INHALATION RT-Q6H PRN 07/08/20 06/28/21 History Nebulized] Fluticasone/Umeclidin/Vilanter 1 puff INHALATION RT-DAILY 11/19/20 06/28/21 History [Trelegy Ellipta 200-62.5-25] HYDROcodone/APAP 10-325MG [[place] 1 tab PO Q6H PRN 11/19/20 06/28/21 History 10-325] Morphine Sulfate ER [Ms Contin] 30 - 60 mg PO DIRECTED 11/19/20 06/28/21 History Omeprazole 40 mg PO DAILY 11/19/20 06/28/21 History PARoxetine [Paxil] 20 mg PO HS 11/19/20 06/28/21 History Ibuprofen [Motrin] 400 mg PO TID PRN 12/25/20 06/28/21 History Metoclopramide [Reglan] 5 mg PO TID 06/11/21 06/28/21 History Sennosides [Senna] 17.2 mg PO HS 06/11/21 06/28/21 History Gabapentin [Neurontin] 100 mg PO TID 06/28/21 06/28/21 History Magnesium Oxide [Mag-Ox] 400 mg PO HS 06/28/21 06/28/21 History Ondansetron Odt [Zofran Odt] 4 mg PO Q6H PRN 06/28/21 06/28/21 History Pembrolizumab [Keytruda] 200 mg IVP Q21D 06/28/21 06/28/21 History Allergies Allergy/AdvReac Type Severity Reaction Status Date / Time No Known Allergies Allergy Verified 06/28/21 07:56 Physical Exam Vitals: Vital Signs Temp Pulse Pulse Resp BP Pulse Ox 07/02/21 15:12 76 07/02/21 15:02 72 07/02/21 11:21 82 07/02/21 11:07 80 07/02/21 08:00 97.9 F 88 18 107/73 97 07/02/21 07:30 78 07/02/21 07:16 76 07/02/21 00:47 97.9 F 71 16 121/74 96 07/01/21 21:28 74 07/01/21 21:18 72 07/01/21 21:17 72 07/01/21 21:08 72 07/01/21 20:00 16 07/01/21 19:02 97.6 F 83 16 122/76 97 07/01/21 16:54 70 07/01/21 16:41 72 Intake and Output 07/02/21 07/02/21 07/02/21 06:59 14:59 22:59 Other: Voiding Method Toilet Weight 48.081 kg Results CBC & Chem 7: 07/02/21 10:12 07/01/21 04:08 Labs: Abnormal Lab Results - Last 24 Hours (Table) 07/01/21 07/01/21 07/02/21 Range/Units 16:42 20:07 07:34 RBC (4.30-5.90) m/uL Hgb (13.0-17.5) gm/dL Hct (39.0-53.0) % Lymphocytes # (1.0-4.8) k/uL POC Glucose (mg/dL) 125 H 157 H 141 H (75-99) mg/dL 07/02/21 07/02/21 Range/Units 10:12 11:28 RBC 3.39 L (4.30-5.90) m/uL Hgb 10.0 L (13.0-17.5) gm/dL Hct 31.8 L (39.0-53.0) % Lymphocytes # 0.2 L (1.0-4.8) k/uL POC Glucose (mg/dL) 133 H (75-99) mg/dL Microbiology - Last 24 Hours (Table) 06/30/21 13:08 Blood Culture - Preliminary Blood No Growth after 48 hours 06/30/21 04:18 Blood Culture - Preliminary Blood No Growth after 48 hours 06/29/21 18:47 Blood Culture - Preliminary Blood No Growth after 48 hours 06/28/21 09:50 Blood Culture Gram Stain - Final Blood Blood Culture - Final Pseudomonas aeruginosa CT scan - abdomen: report reviewed, image reviewed CT scan - chest: report reviewed, image reviewed CT scan - pelvis: report reviewed, image reviewed Assessment and Plan Assessment: The patient is a 56-year-old male with a history of a stage VIOLA (cT4, cN1, M1b) poorly differentiated non-small cell lung cancer of the right upper lung with initial imaging suspicious for a splenic metastasis. He underwent 4 cycles of Carbo/Alimta/Keytruda. He underwent consolidative RT to the large right lung mass due to pain from chest-wall invasion and minimal distant disease finishing on 12/06/2020. He unfortunately had progression of the large lesion in his spleen and this was not amenable to SBRT. He underwent a definitive course of RT finishing on 03/27/2021 as this was his only site of distant disease. The patient has now been hospitalized with likely postobstructive pneumonia of the right lung secondary to Pseudomonas. Plan: 1. Pneumonia: As noted above, the patient seems to be clinically improving with his breathing. He will continue on his current regimen of antibiotics and breathing treatments. 2. Non-small cell lung cancer: Based on my review of his imaging, the patient's splenomegaly and splenic mass actually appear improved. The right upper lobe lung lesion however is more difficult to tell It seems relatively stable in size, however there clearly is narrowing of the right mainstem bronchus which is likely the reason the patient has developed pneumonia. If this lesion is beginning to progress, that may also explain the patient's worsening back pain. My recommendation is for the patient to recover from this acute difficulty with pneumonia, and repeat a PET/CT in the next 3-4 weeks. This may help to more adequately assess if this cancer is still responding. He has been on immunotherapy as monotherapy, and his last treatment was approximately 1 month ago. 3. Back pain: We have felt in the past this pain is likely due to the right upper lung lesion with posterior chest wall invasion. Appreciate oncology continue to optimize patient's pain control. Dr. Morrison has apparently spoken with the patient regarding possible nerve block in the future. Time with Patient: Greater than 30
[2021-07-02 16:50] LABS: Glucose,Whole Blood 123 mg/dL (75-99)
--- NOTE | 2021-07-02 17:41 | PN ---
PROGRESS NOTE DATE OF SERVICE: 07/02/2021 This 56-year-old gentleman admitted with multiple medical problems has significant short of breath. The patient also had a thoracic spine MRI which showed multiple abnormalities being followed by Hematology/Oncology. No chest pain. No palpitations. No fever. PHYSICAL EXAMINATION: Alert and oriented x3. Pulse 72, blood pressure 107/73, respiration 18, temperature 97.9, pulse ox 97% on 3 L. HEENT: Conjunctivae normal. Oral mucosa moist. NECK: No jugular venous distention. No lymph node enlargement. CARDIOVASCULAR: S1, S2, muffled. No S3, no S4, RESPIRATORY: Diminished breath sounds at the bases. A few scattered rhonchi. ABDOMEN: Soft, nontender. LEGS: No edema, no swelling. NERVOUS SYSTEM: No focal deficits. LAB STUDIES: WBC 6.8, hemoglobin 10, glucose 133. ASSESSMENT: 1. Chronic obstructive pulmonary disease acute exacerbation with possible acute right middle lobe pneumonia, right lower lobe pneumonia, possibly multilobar, possibly postobstructive, possibly gram-negative with stage IV lung cancer. 2. Splenic mass. 3. Covid-19 ruled out. 4. Anemia, normocytic possibly acute secondary to malignancy. 5. Hyponatremia, multifactorial. 6. Severe protein-calorie malnutrition, BMI of 16.5. 7. History of nicotine dependence. 8. History of gastroesophageal reflux disease. 9. History of back pain. 10.History of anxiety. 11.FULL CODE. RECOMMENDATIONS: Recommend to continue current medications, continue symptomatic treatment. Continue with IV steroids and antibiotics. Closely follow with Pulmonary. Once the patient improves the patient can be discharged home. Further recommendations to follow. MMODL / IJN: [id number] /
[2021-07-02 20:35] LABS: Glucose,Whole Blood 170 mg/dL (75-99)
[2021-07-02] MEDS: MAGNESIUM OXIDE 400 MG TAB PO SCH (21:34)
[2021-07-02] MEDS: PARoxetine 20 MG TAB PO SCH (21:34)
--- NOTE | 2021-07-02 23:08 | PN ---
PROGRESS NOTE DATE OF SERVICE: 07/02/2021 REASON FOR FOLLOWUP: Pseudomonas bacteremia and pneumonia. INTERVAL HISTORY: Patient is afebrile. The patient is breathing comfortably the patient denies having any chest pain or shortness of breath. Occasional cough. Not bringing up sputum. No abdominal pain or diarrhea. PHYSICAL EXAMINATION: Blood pressure 125/76, pulse of 82, temperature 98. He is 100% on 2 L nasal cannula. General description is a middle-aged male lying in bed in no distress. Respiratory system: Unlabored breathing, decreased intensity of breath sounds. No wheeze. Heart S1, S2. Regular rate and rhythm. Abdomen soft, no tenderness. LABS: Repeat blood cultures have been negative. DIAGNOSTIC IMPRESSION AND PLAN: Patient with Pseudomonas aeruginosa bacteremia, source likely post obstructive pneumonia on Zosyn. Patient to continue with Zosyn while waiting for his condition to stabilize and may benefit from a short course of IV antibiotics on discharge. Continue supportive care. MMODL / IJN: [id number] / MTDD
[2021-07-03] MEDS: methylPREDNISolone SOD SUCCI 125 MG/2 ML VIAL IV SCH ×3 (00:25→14:17)
[2021-07-03] MEDS: oxyCODONE-APAP 10-325MG 1 EACH TAB PO PRN ×2 (05:31→17:42)
[2021-07-03] MEDS: PIPERACILLIN-TAZOBACTAM 3.375 GM in SODIUM CHLORIDE 0.9% 100 ML IVPB SCH (05:31)
[2021-07-03 07:12] LABS: Glucose,Whole Blood 109 mg/dL (75-99)
[2021-07-03] MEDS: INSULIN ASPART (NovoLOG) 100 UNIT/ML VIAL SQ SCH ×2 (07:16→11:56)
[2021-07-03] MEDS: IPRATROPIUM-ALBUTEROL 3 ML NEB INHALATION SCH ×3 (07:29→16:47)
[2021-07-03] MEDS: FORMOTEROL FUMARATE 20 MCG/2 ML NEBU INHALATION SCH (07:29)
[2021-07-03] MEDS: BUDESONIDE 1 MG/2 ML NEBU INHALATION SCH (07:29)
[2021-07-03] MEDS: HEPARIN SODIUM,PORCINE/PF 5,000 UNIT/0.5 ML SYRINGE SQ SCH (08:05)
[2021-07-03] MEDS: GABAPENTIN 100 MG CAP PO SCH (08:05)
[2021-07-03] MEDS: SENNOSIDES-DOCUSATE SODIUM 1 EACH TAB PO SCH (08:05)
[2021-07-03] MEDS: METOCLOPRAMIDE 5 MG TAB PO SCH ×2 (08:06→11:55)
[2021-07-03] MEDS: PANTOPRAZOLE 40 MG TABLET PO SCH (08:06)
[2021-07-03] MEDS: guaiFENesin 600 MG TABLET.ER PO SCH (08:06)
[2021-07-03] MEDS: polyethylene glycoL 3350 17 GM POWD.PACK PO SCH (08:11)
[2021-07-03 08:52] VITALS: RESP 18
[2021-07-03 09:44] LABS: Basophils # (A) 0.01 X 10*3/uL (0.00-0.10); Basophils % (A) 0.2 %; Eosinophils # (A) 0 X 10*3/uL (0.04-0.35); Eosinophils % (A) 0 %; HCT 29.9 % (39.6-50.0); Lymphocytes # (A) 0.18 X 10*3/uL (0.90-5.00); MCH 28.3 pg (27.0-32.0); MCHC 30.1 g/dL (32.0-37.0); Mean Platelet Volume 9.3 fL (9.5-12.2); Monocytes # (A) 0.26 X 10*3/uL (0.20-1.00); Monocytes % (A) 4.3 %; Neutrophils # (A) 5.51 X 10*3/uL (1.80-7.70); Neutrophils % (A) 90.8 %; Platelet Count 296 X 10*3/uL (140-440); RBC 3.18 X 10*6/uL (4.40-5.60); RDW 15.1 % (11.5-14.5); WBC 6.06 X 10*3/uL (4.50-10.00)
[2021-07-03 11:45] LABS: Glucose,Whole Blood 107 mg/dL (75-99)
[2021-07-03] MEDS: FOLIC ACID 1 MG TAB PO SCH (11:55)
[2021-07-03] MEDS: MULTIVITAMINS, THERA 1 EACH TAB PO SCH (11:55)
[2021-07-03] MEDS: THIAMINE 100 MG TAB PO SCH (11:56)
--- NOTE | 2021-07-03 12:13 | CDI ---
Documentation Clarification Form Date: 07/03/2021 11:58:13 AM From: Nereyda Solorzano CCS, CCDS Admit Date: 06/28/2021 06:58:00 AM Patient Name: Leonel Amado Visit Number: [id number] Discharge Date: ATTENTION: The Clinical Documentation Specialists (CDI) and [facility] Coding Staff appreciate your assistance in clarifying documentation. Please respond to the clarification below the line at the bottom and electronically sign. The CDI & [facility] Coding staff will review the response and follow-up if needed. Please note: Queries are made part of the Legal Health Record. If you have any questions, please contact the author of this message via ITS. Dr. Rashard Daniels: Gram Negative Sepsis is documented in the 06/29 Pulmonary Consult and in subsequent Pulmonary Physician Progress Note. Sepsis is not documented elsewhere in the record. Additional clarification regarding the etiology/cause of the clinical indicators is requested. History/Risk Factors per the 06/28 H/P: COPD, Lung Cancer, GERD, Back Surgery and Former Smoker. Clinical Indicators: Presented to the ED on 06/28 with SOB, normally on O2. History of pneumonia infections in the past, currently on chemotherapy and has had radiation for Lung Cancer. Admit with COPD Exacerbation, Lung Cancer, Fever, Anemia, Hyponatremia. 06/28 VS: T 101.4, P 91, R 26, BP 128/90, PO 97 RA - 96 2Lnc, BMI: 16.6 06/28 LAB: WBC 5.4, RBC 2.94, Hgb 8.6, Hct 26.4, Lymph 0.4; Na 129, Creatinine 0.51, Glucose 106, Lactic Acid 1.5, Calcium 7.8, Total bili <0.1, AST 15, Total Protein 5.2, Albumin 2.5. 06/28 CXR: Some consolidation and volume loss right upper lobe which has progressed slightly compared to last exam and consistent with tumor. No heart failure. 06/28 CT Chest: No PE. Right suprahilar mass which narrows the central airways on the right. This results in stenosis of the right main bronchus with at least 90% narrowing and postobstructive atelectasis of the right upper lobe. Consolidation changes within the lung bases with opacified airways suggesting aspiration pneumonitis/pneumonia. Emphysema changes. Low density lesion which may represent metastatic disease given findings in #2 and prior PET scan. Treatment 06/28: O2 2Lnc, INH Duoneb, po Zithromax, INH Duoneb x1, INH Duoneb QID, IV Rocephin 50 mls @ 100 mls/hr q24H, IV Solumedrol 60 mg q6H, INH Pulmicort, INH Symbicort BID, INH Perforomist BID, Heparin sq. 06/29 Infectious Disease Consulted on 06/29, no consult is documented. In your professional opinion, please clarify if these findings signify one of the following conditions: [ ] Sepsis POA, please specify the organism if known: [ ] Sepsis, Not POA, please specify the organism if known: [ ] Sepsis ruled out [ ] Other, please specify [ ] Unable to determine (Template Last Reviewed: July 2020) possible sepsis present on admission MTDD
--- NOTE | 2021-07-03 14:21 | P.PN ---
Subjective Progress Note Date: 07/03/21 Principal diagnosis: Shortness of breath This is a 56-year-old male patient with known history of COPD and non-small cell lung cancer, locally invasive time of diagnosis and probably currently metastatic. Note that the patient diagnosis of non-small cell lung cancer was established approximately a year ago when the patient presented to us with a lung mass and at that time the patient came in with a suprahilar mass with a post obstructive pneumonia and the biopsy was consistent with poorly differentiated non-small cell lung cancer. The patient was referred to medical oncology. The patient was treated with accommodation of chemoradiation therapy and following that the patient was given immunotherapy and will believe that the patient has been taken Keytruda on outpatient basis. The patient had few hospitalization following that. He also has had few CAT scan of the chest. Yesterday came into the emergency department with worsening shortness of breath. He was also having some chest discomfort across his anterior chest bilaterally. No hemoptysis. No pleurisy. In the ED, temperature 11.4. He was getting a blood pressure 128/80. White cell count of 5.4 with a hemoglobin 8.6 and the sodium level was 129. COVID 19 50 was negative lactic acid level was at 1.1 daily calcium level was at 7.8, normal LFTs, normal electrolytes, BUN is at 12 with a creatinine of 0.5. CAT scan of the chest was done utilizing the CTA protocol. There is still evidence of a large soft tissue mass density in the right hilar area surrounding dry right mainstem bronchus and the bronchus intermedius causing significant narrowing of the bronchus intermedius and atelectasis of the right lower lobe segments. There was a inflammatory mass in the right lung base in addition to that a new onset mass in the left lower lobe,. Meanwhile, the blood culture came back positive for gram-negative bacillus. Currently the patient is on IV cefepime. On 06/30/2021 patient seen in follow-up on medical surgical floor, he states his breathing is much better, feeling better, he is still coughing is producing some yellow colored phlegm. He was able to give us a sputum sample, lung sounds reveal diffuse wheezes, he is currently on 3 L of oxygen pulse ox of 99%, this morning she was completing of some abdominal pain, and he is going down for a CT of the abdomen for evaluation of the abdominal pain, he has been afebrile, hemodynamically has been stable, no complaints of chest discomfort, no nausea or vomiting, his blood cultures were positive for pseudomonas aeruginosa, he is cur rently on Zosyn, ID service is following. He remains on nebulized bronchodilators, he is on IV steroids at 60 mg every 6 hours. Today's labs have been reviewed, his white blood cell count of 6.13, hemoglobin is 8.6, electrolytes are within normal limits, BUN is 14 creatinine 0.4. Pro-calcitonin level was 0.20. His serum sodium has significantly improved and is up to 137 on today's labs. On 07/01/2021 patient is seen in follow-up on medical surgical floor. He states his breathing is better today, still has diffuse rhonchi coughing, but not producing much phlegm. He is on 3 L of oxygen today pulse ox is 97%, afebrile, hemodynamically stable, denies any abdominal pain today, CT scan of the abdomen and pelvis was completed showing splenic mass, fecal stasis, enteritis. Patient is complaining of back pain which he says is improving since admission, he is going for a thoracic spine MRI today. He remains on IV Solu-Medrol 60 mg every 6 hours, nebulized bronchodilators. Remains on Zosyn for pseudomonal bacteremia. ID service is following, follow blood cultures have shown no growth thus far. White blood cell count is 5.1, hemoglobin is 8.8, sodium is 134, respiratory electrolytes and renal profile were unremarkable. Pro-calcitonin level is 0.20 On 07/02/2021 patient seen in follow-up on medical surgical floor, he is breathing more comfortably today, still congested, not bringing up much phlegm. Lung sounds are positive for diffuse rhonchi and wheezes, slightly improved, he remains on nebulized bronchodilators, Zosyn, and IV steroids with Solu-Medrol 60 mg every 6 hours. He normally wears 2 L of oxygen at home on the regular basis on as-needed basis, he is currently on 3 L, pulse ox is 97%, his been afebrile, hemodynamically has been stable. He had a follow-up blood cultures in view of pseudomonal bacteremia and follow-up blood cultures remain negative, continues on Zosyn. Vital Signs have been reviewed, blood cell count is 6.8, hemoglobin is 10. Patient had MRI of the thoracic spine view of his back pain to rule out possibility of skeletal metastasis, and there was no definitive spinal canal invasion but some involvement in the exiting right sided nurse was difficult to exclude. On 07/03/2021 patient seen in follow-up on medical surgical floor, he is improving, lung sounds are essentially clear to auscultation, no wheezing or rhonchi, is currently on 2 L of oxygen, breathing much easier, no acute events overnight, patient has been tolerating ambulation in the room, denies any chest pain, denies any worsening dyspnea, no fever or chills. Today's labs have been reviewed, his white blood cell count is 6.06, hemoglobin is 9, platelet count is 296. BMP is pending. Patient continues on nebulized bronchodilators, he is on Zosyn and IV steroids, he is receiving Percocet, and as needed Dilaudid for breakthrough pain, he states his back pain is much better controlled, he was seen in consultation by radiation oncology, please refer to the consultation note, From pulmonary perspective patient has been stable, and improved since admission. Objective - Vital Signs Vital signs: Vital Signs Temp 97.7 F 07/03/21 08:00 Pulse 90 07/03/21 11:22 Resp 18 07/03/21 11:22 BP 119/81 07/03/21 08:00 Pulse Ox 98 07/03/21 08:00 Intake & Output 07/02/21 07/03/21 07/03/21 18:59 06:59 18:59 Intake Total 200 Balance 200 Weight 48.081 kg Intake: Intake, IV Titration 200 Amount Piperacillin-Tazobactam 3 200 .375 gm In Sodium Chloride 0.9% 100 ml @ 25 mls/hr IVPB Q8H [facility] Rx#: [id number] Other: Voiding Method Toilet # Voids 3 2 - Exam GENERAL EXAM: Alert, very pleasant, 56-year-old white male, on 2 L of oxygen pulse ox is 97%, in no acute distress HEAD: Normocephalic/atraumatic. EYES: Normal reaction of pupils, equal size. Conjunctiva pink, sclera white. NOSE: Clear with pink turbinates. THROAT: No erythema or exudates. NECK: No masses, no JVD, no thyroid enlargement, no adenopathy. CHEST: No chest wall deformity. Symmetrical expansion. LUNGS: no crackles, rhonchi or dullness. Patient has diminished breath sounds at the bases, no wheezes, no rhonchi on today's exam CVS: Regular rate and rhythm, normal S1 and S2, no gallops, no murmurs, no rubs ABDOMEN: Soft, nontender. No hepatosplenomegaly, normal bowel sounds, no gua rding or rigidity. EXTREMITIES: No clubbing, no edema, no cyanosis, 2+ pulses and upper and lower extremities. MUSCULOSKELETAL: Muscle strength and tone normal. SPINE: No scoliosis or deformity SKIN: No rashes CENTRAL NERVOUS SYSTEM: Alert and oriented -3. No focal deficits, tone is normal in all 4 extremities. PSYCHIATRIC: Alert and oriented -3. Appropriate affect. Intact judgment and insight. - Labs CBC & Chem 7: 07/03/21 05:37 07/01/21 04:08 Labs: Abnormal Lab Results - Last 24 Hours (Table) 07/02/21 07/02/21 07/03/21 Range/Units 16:49 20:31 05:37 RBC 3.18 L (4.40-5.60) X 10*6/uL Hgb 9.0 L (13.0-17.0) g/dL Hct 29.9 L (39.6-50.0) % MCHC 30.1 L (32.0-37.0) g/dL RDW 15.1 H (11.5-14.5) % MPV 9.3 L (9.5-12.2) fL Absolute Nucleated RBC 0.02 H (0.00-0.00) X 10*3/uL Immature Gran # 0.10 H (0.00-0.04) X 10*3/uL Lymphocytes # 0.18 L (0.90-5.00) X 10*3/uL Eosinophils # 0 L (0.04-0.35) X 10*3/uL NRBC/100 WBC Diff 0.3 H (0.0-0.0) /100 WBCS POC Glucose (mg/dL) 123 H 170 H (75-99) mg/dL 07/03/21 07/03/21 Range/Units 07:10 11:44 RBC (4.40-5.60) X 10*6/uL Hgb (13.0-17.0) g/dL Hct (39.6-50.0) % MCHC (32.0-37.0) g/dL RDW (11.5-14.5) % MPV (9.5-12.2) fL Absolute Nucleated RBC (0.00-0.00) X 10*3/uL Immature Gran # (0.00-0.04) X 10*3/uL Lymphocytes # (0.90-5.00) X 10*3/uL Eosinophils # (0.04-0.35) X 10*3/uL NRBC/100 WBC Diff (0.0-0.0) /100 WBCS POC Glucose (mg/dL) 109 H 107 H (75-99) mg/dL Microbiology - Last 24 Hours (Table) 06/30/21 04:18 Blood Culture - Preliminary Blood No Growth after 72 hours 06/29/21 18:47 Blood Culture - Preliminary Blood No Growth after 72 hours 06/30/21 13:08 Blood Culture - Preliminary Blood No Growth after 48 hours Assessment and Plan Plan: Assessment: #1. Poorly differentiated non-small cell lung cancer, probably stage IV metastatic at this stage, patient has narrowing of the bronchus intermedius caused by the hilar mass causing tight narrowing of the bronchus intermedius. Patient has another mass in the left lower lobe which radiographically also looks quite malignant. Patient has an inflammatory masslike consolidation in the right lower lung posterior segment, and likely there is a interval progr ession compared to his recent computed tomography scan of the chest. #2. Non-small cell lung cancer, treated with immunotherapy Keytruda #3. Gram-negative sepsis, related to pseudomonas aeruginosa in the blood cultures likely related to postobstructive pneumonia involving the right lower lobe #4. History of COPD #5. Shortness of breath, cough, phlegm production related to the above #6. Acute hypoxic respiratory failure currently on 3 L of oxygen #7. Abdominal pain, and CT of the abdomen showed persistent splenomegaly, splenic mass, retained fecal debris #8. Back pain, MRI of the thoracic spine completed, showing heterogeneous enhancing tissue extending along the right aspect of the upper to mid thoracic vertebra, no definitive spinal canal invasion Plan: Patient is improving from pulmonary perspective Less dyspneic, less congested, able to tolerate ambulation FiO2 is currently down to 2 L and this is what the patient wears at home on as- needed basis No acute events overnight, no fever or chills Follow blood cultures remain negative, patient is being discharged home on oral Augmentin He was seen in consultation by radiation oncology He will need outpatient PET/computed tomography scan in the 3-4 weeks per their recommendation His back pain is better controlled From pulmonary perspective he stable for discharge home today He will complete 5 day course of Augmentin Prednisone taper Nebulized treatments Outpatient follow-up with Dr. Holley next week I performed a history & physical examination of the patient and discussed their management with my nurse practitioner, Tori Villaseñor. I reviewed the nurse practitioner's note and agree with the documented findings and plan of care. Lung sounds are positive for diffuse wheezes, and diminished breath sounds at the left base throughout the lung alexandra. The findings and the impression was discussed with the patient. I attest to the documentation by the nurse practitioner. Time with Patient: Less than 30
--- NOTE | 2021-07-03 14:23 | P.PN ---
Subjective Progress Note Date: 07/03/21 Principal diagnosis: Fever patient's pain is much better controlled on Fentanyl and percocet. we have increased gabapentin, discussed with daughter Clary. I have brought a RX to [facility] to ensure they will fill prior to discharge. Copay for fentanyl patch $2.43 per month. Objective - Vital Signs Vital signs: Vital Signs Temp 97.7 F 07/03/21 08:00 Pulse 90 07/03/21 11:22 Resp 18 07/03/21 11:22 BP 119/81 07/03/21 08:00 Pulse Ox 98 07/03/21 08:00 Intake & Output 07/02/21 07/03/21 07/03/21 18:59 06:59 18:59 Intake Total 200 Balance 200 Weight 48.081 kg Intake: Intake, IV Titration 200 Amount Piperacillin-Tazobactam 3 200 .375 gm In Sodium Chloride 0.9% 100 ml @ 25 mls/hr IVPB Q8H [facility] Rx#: [id number] Other: Voiding Method Toilet # Voids 3 2 - Exam Telemedicine Visit today - Labs CBC & Chem 7: 07/03/21 05:37 07/01/21 04:08 Labs: Abnormal Lab Results - Last 24 Hours (Table) 07/02/21 07/02/21 07/03/21 Range/Units 16:49 20:31 05:37 RBC 3.18 L (4.40-5.60) X 10*6/uL Hgb 9.0 L (13.0-17.0) g/dL Hct 29.9 L (39.6-50.0) % MCHC 30.1 L (32.0-37.0) g/dL RDW 15.1 H (11.5-14.5) % MPV 9.3 L (9.5-12.2) fL Absolute Nucleated RBC 0.02 H (0.00-0.00) X 10*3/uL Immature Gran # 0.10 H (0.00-0.04) X 10*3/uL Lymphocytes # 0.18 L (0.90-5.00) X 10*3/uL Eosinophils # 0 L (0.04-0.35) X 10*3/uL NRBC/100 WBC Diff 0.3 H (0.0-0.0) /100 WBCS POC Glucose (mg/dL) 123 H 170 H (75-99) mg/dL 07/03/21 07/03/21 Range/Units 07:10 11:44 RBC (4.40-5.60) X 10*6/uL Hgb (13.0-17.0) g/dL Hct (39.6-50.0) % MCHC (32.0-37.0) g/dL RDW (11.5-14.5) % MPV (9.5-12.2) fL Absolute Nucleated RBC (0.00-0.00) X 10*3/uL Immature Gran # (0.00-0.04) X 10*3/uL Lymphocytes # (0.90-5.00) X 10*3/uL Eosinophils # (0.04-0.35) X 10*3/uL NRBC/100 WBC Diff (0.0-0.0) /100 WBCS POC Glucose (mg/dL) 109 H 107 H (75-99) mg/dL Microbiology - Last 24 Hours (Table) 06/30/21 04:18 Blood Culture - Preliminary Blood No Growth after 72 hours 06/29/21 18:47 Blood Culture - Preliminary Blood No Growth after 72 hours 06/30/21 13:08 Blood Culture - Preliminary Blood No Growth after 48 hours Assessment and Plan (1) Anemia Current Visit: Yes Status: Acute Code(s): D64.9 - ANEMIA, UNSPECIFIED SNOMED Code(s): 167958660 (2) COPD exacerbation Current Visit: Yes Status: Acute Code(s): J44.1 - CHRONIC OBSTRUCTIVE PULMONARY DISEASE W (ACUTE) EXACERBATION SNOMED Code(s): 515103957 (3) Fever Current Visit: Yes Status: Acute Code(s): R50.9 - FEVER, UNSPECIFIED SNOMED Code(s): 134752810 (4) Hyponatremia Current Visit: Yes Status: Acute Code(s): E87.1 - HYPO-OSMOLALITY AND HYPONATREMIA SNOMED Code(s): 76977901 (5) Lung cancer Current Visit: Yes Status: Acute Code(s): C34.90 - MALIGNANT NEOPLASM OF UNSP PART OF UNSP BRONCHUS OR LUNG SNOMED Code(s): 544666293 Plan: Assessment and recommendations: Fever:resolved - - Positive Bacteremia Pseudomonas - Ensure Blood cultures from central line if applicable Acute on Chronic Hypoxic Respiratory failure - CTA neg PE, ? progression NSCLCA: - Follows Dr. Morrison and receives monotherapy with Keytruda Plan: - Fentanyl patch, Oxycodone, and Gabapentin for pain management on discharge - Narcotic contract to be completed in office, 3 day brought to pharmacy to be ready for when ID and Primary team decide on discharge. - Bowel regimen aggressive for narcotic induced constipation prevention Discussed in detail with daughter
[2021-07-03 14:51] VITALS: BP 127/77; TEMP 98.2
[2021-07-03 16:56] VITALS: PULSE 94
--- NOTE | 2021-07-03 21:46 | P.PN ---
Progress Note - Text Progress Note Date: 07/03/21 REASON FOR FOLLOWUP: Pseudomonas bacteremia and pneumonia. INTERVAL HISTORY: Patient remains to beafebrile. The patient is breathing comfortably the patient denies having any chest pain, no worsening cough. Not bringing up sputum. No abdominal pain or diarrhea. PHYSICAL EXAMINATION: Blood pressure 120/70, pulse of 80, temperature 98. He is 100% on 2 L nasal cannula. General description is a middle-aged male lying in bed in no distress. Respiratory system: Unlabored breathing, decreased intensity of breath sounds. No wheeze. Heart S1, S2. Regular rate and rhythm. Abdomen soft, no tenderness. LABS: Repeat blood cultures have been negative. DIAGNOSTIC IMPRESSION AND PLAN: Patient with Pseudomonas aeruginosa bacteremia, source likely post obstructive pneumonia on Zosyn. Patient was offered Zosyn howeevr pt wanted to try po , plan is for oral cipro 750mg bid , along with flagyl for 10 days once stable for DC and close outpatient follow up.
--- NOTE | 2021-07-04 06:28 | DS ---
DISCHARGE SUMMARY FINAL DIAGNOSES: 1. Chronic obstructive pulmonary disease acute exacerbation with possible acute right middle lobe pneumonia, right lower pneumonia, possibly multilobar, possibly postobstructive or gram-negative with stage IV lung cancer. 2. Splenic mass. 3. Covid 19 ruled out. 4. Anemia, normocytic possibly acute secondary to malignancy. 5. Hyponatremia, multifactorial. 6. Severe protein-calorie malnutrition, BMI of 16.5. 7. History of nicotine dependence. 8. History of gastroesophageal reflux disease. 9. History of back pain. 10.History of anxiety. 11.FULL CODE. DISCHARGE DISPOSITION: The patient discharged in stable condition with guarded prognosis. HISTORY OF PRESENT ILLNESS: This 56-year-old gentleman with a past medical history of multiple medical problems admitted with multilobar pneumonia. Patient treated with broad-spectrum IV antibiotics, improved significantly. Patient seen by multiple consultants. Please refer to their notes for further details. On exam, vitals stable. Cardiovascular S1, S2. Abdomen soft, nontender. Cleared by Pulmonary. Patient discharged in stable condition with guarded prognosis. Diet is cardiac diet. Activity limited until followup. Follow up with primary physician in 2-3 days. Follow up with Dr. Holley and Dr. Morrison as recommended. Home O2 is also being arranged. DISCHARGE MEDICATIONS: 1. Keytruda 200 mg as before. 2. Magnesium oxide 400 mg q.h.s. 3. Motrin p.r.n. 4. Omeprazole 40 mg p.o. daily. 5. Paxil 20 mg p.o. q.h.s. 6. Reglan 5 mg p.o. t.i.d. 7. Senna 17.2 q.h.s. 8. Fluticasone as before. 9. Albuterol q.i.d. p.r.n. 10.Zofran 4 mg q.6 p.r.n. 11.Augmentin 875 mg p.o. b.i.d. for 5 days. 12.DuoNeb q.i.d. and p.r.n. 13.Fentanyl patch 75 mcg q.72h. 14.Folic acid 1 mg daily. 15.Polyethylene MiraLAX 17 g p.o. daily. 16.Mucinex 1200 mg p.o. daily. 17.Multivitamins 1 p.o. daily. 18.Neurontin 300 mg p.o. t.i.d. 19.Oxycodone 10 mg q.4h p.r.n. 20.Prednisone taper 40 mg daily for 3 days, 30 for 3 days, 20 for 3 days, 10 for 3 days. 21.Pulmicort 2 puffs b.i.d. 22.Senna p.r.n. 23.Thiamine 100 mg p.o. daily. Once again, patient discharged in stable condition with guarded prognosis. MMODL / IJN: [id number] / MTDD
== END 2021-07-03 18:16 | disposition home health service (06) | DRG 871 ==
LOC: EC 03:12 → 4SSUR 06:58
PROVIDERS: ADMIT Internal Medicine; ATTEND Internal Medicine
DX: A41.52 Sepsis due to Pseudomonas (principal); E43 Unspecified severe protein-calorie malnutrition; J96.01 Acute respiratory failure with hypoxia; J18.1 Lobar pneumonia, unspecified organism; C34.90 Malignant neoplasm of unspecified part of unspecified bronchus or lung; E87.1 Hypo-osmolality and hyponatremia; J44.0 Chronic obstructive pulmonary disease with (acute) lower respiratory infection; J44.1 Chronic obstructive pulmonary disease with (acute) exacerbation; J98.11 Atelectasis; R78.81 Bacteremia; Z68.1 Body mass index [BMI] 19.9 or less, adult; B96.5 Pseudomonas (aeruginosa) (mallei) (pseudomallei) as the cause of diseases classified elsewhere; D64.9 Anemia, unspecified; J43.9 Emphysema, unspecified; J98.09 Other diseases of bronchus, not elsewhere classified; K59.00 Constipation, unspecified; Z20.822 Contact with and (suspected) exposure to COVID-19; Z79.899 Other long term (current) drug therapy; Z80.1 Family history of malignant neoplasm of trachea, bronchus and lung; Z85.118 Personal history of other malignant neoplasm of bronchus and lung; Z87.891 Personal history of nicotine dependence; F41.9 Anxiety disorder, unspecified; K21.9 Gastro-esophageal reflux disease without esophagitis; R16.1 Splenomegaly, not elsewhere classified
CPT/HCPCS: 36415; 71046; 71275; 72157; 74176; 80048; 80053; 83605; 83735; 83930; 83935; 84100; 84145; 84443; 85025; 85379; 85652; 86140; 87040; 87077; 87186; 87635; 94640; 94760; 99285

== ENCOUNTER 2021-07-29 18:47 | Inpatient (IN) | payer MEDICARE ==
[2021-07-29 20:04] LABS: Basophils % (A) 0 %; Eosinophils % (A) 0 %; HCT 35.2 % (39.0-53.0); Hypochromasia Slight; Lymphocytes # (A) 0.4 k/uL (1.0-4.8); Lymphocytes % (A) 3 %; MCH 28.7 pg (25.0-35.0); MCHC 31.3 g/dL (31.0-37.0); MCV 91.7 fL (80.0-100.0); Mean Platelet Volume 7.2; Monocytes # (A) 0.6 k/uL (0-1.0); Monocytes % (A) 4 %; Neutrophils # (A) 12.2 k/uL (1.3-7.7); Neutrophils % (A) 91 %; Platelet Count 448 k/uL (150-450); RBC 3.84 m/uL (4.30-5.90); RDW 15.5 % (11.5-15.5); WBC 13.4 k/uL (3.8-10.6)
[2021-07-29 20:12] LABS: Partial Thromboplastin Time 24.9 sec (22.0-30.0); Prothrombin Time 11.1 sec (9.0-12.0)
[2021-07-29 20:13] LABS: ALT 12 U/L (4-49); AST 25 U/L (17-59); African American GFR (CKD) >90 (>60 ml/min/1.73 sqM); Albumin 2.9 g/dL (3.5-5.0); Alkaline Phosphatase 98 U/L (38-126); Anion Gap 5 mmol/L; Blood Urea Nitrogen 15 mg/dL (9-20); Carbon Dioxide 32 mmol/L (22-30); Chloride 93 mmol/L (98-107); Glucose 132 mg/dL (74-99); Non-African American GFR(CKD) >90 (>60 ml/min/1.73 sqM); Potassium 4.6 mmol/L (3.5-5.1); Sodium 130 mmol/L (137-145); Total Bilirubin 0.4 mg/dL (0.2-1.3); Total Protein 5.9 g/dL (6.3-8.2)
--- NOTE | 2021-07-29 20:23 | XR ---
EXAMINATION TYPE: XR chest 2V DATE OF EXAM: 07/29/2021 COMPARISON: 06/28/2021 HISTORY: Short of breath TECHNIQUE: 2 views FINDINGS: There is large right-sided pneumothorax. Trachea is midline. No evidence of tension. There is some masslike density at the right pulmonary hilum without change. The left lung is clear. No hear t failure. No pleural effusion. Bony thorax is intact. IMPRESSION: Large right pneumothorax is new compared to the old exam. No evidence of tension. COPD. R ight suprahilar pulmonary mass.
[2021-07-29] MEDS ORDERED: LORazepam 2 MG/ML INJ IV STA (20:44)
[2021-07-29] MEDS ORDERED: HYDROmorphone 1 MG/ML 1 ML SYRINGE IVP STA ×2 (20:44→23:15)
[2021-07-29] MEDS ORDERED: LIDOCAINE 1% INJ 10MG/ML (20 ML MDV) SQ ONE (21:01)
--- NOTE | 2021-07-29 21:56 | XR ---
EXAMINATION TYPE: XR chest 1V portable DATE OF EXAM: 07/29/2021 COMPARISON: Today HISTORY: Chest tube TECHNIQUE: 2 views AP FINDINGS: There is right-sided chest tube. There is large right pneumothorax unchanged compared to in itial exam. No evidence of tension. Trachea is midline. Left lung is clear. IMPRESSION: The right-sided pneumothorax is approximately 75% and is not significantly different than last exam.
--- NOTE | 2021-07-29 23:10 | XR ---
EXAMINATION TYPE: XR chest 1V portable DATE OF EXAM: 07/29/2021 COMPARISON: Today HISTORY: Pneumothorax TECHNIQUE: Single view FINDINGS: There is right-sided chest tube. There is mild soft tissue air along the right upper latera l chest wall. There is essentially complete clearing of the large right-sided pneumothorax compared t o recent exam. There is increased density right perihilum extending into the right upper lobe. Left l estrella is clear. Thoracic aorta is atheromatous. IMPRESSION: Significant clearing of the right-sided pneumothorax.
[2021-07-29] MEDS ORDERED: HYDROmorphone 1 MG/ML 1 ML SYRINGE IVP PRN (23:17)
[2021-07-29] MEDS ORDERED: NALOXONE 0.4 MG/ML 1 ML VIAL IV PRN (23:17)
--- NOTE | 2021-07-29 23:17 | ED ---
SOB HPI - General Chief Complaint: Shortness of Breath Stated Complaint: ZAN Source: patient Mode of arrival: wheelchair Limitations: no limitations - History of Present Illness Initial Comments: 56-year-old male past medical history of lung cancer, COPD presents emergency room with reported shortness of breath. He states he's been short of breath for the past 2 weeks and getting progressively worse. He is normally on 2 L of oxygen per family member however has trended up to 4 L. He reports that he hasn't been eating or drinking and is concerned for dehydration. Denies cough or sputum production. No fevers. Denies sick contacts. He is currently on chemotherapy with Dr. Morrison. No other alleviating, resuscitating or modifying factors - Related Data Home Medications Medication Instructions Recorded Confirmed Albuterol Nebulized [Ventolin 2.5 mg INHALATION RT-Q6H PRN 07/08/20 07/29/21 Nebulized] Fluticasone/Umeclidin/Vilanter 1 puff INHALATION RT-DAILY 11/19/20 07/29/21 [Treleamberly Ellipta 200-62.5-25] Omeprazole 40 mg PO DAILY 11/19/20 07/29/21 PARoxetine [Paxil] 20 mg PO HS 11/19/20 07/29/21 Ibuprofen [Motrin] 400 mg PO TID PRN 12/25/20 07/29/21 Metoclopramide [Reglan] 5 mg PO TID PRN 06/11/21 07/29/21 Magnesium Oxide [Mag-Ox] 400 mg PO HS 06/28/21 07/29/21 Ondansetron Odt [Zofran ODT] 4 mg PO Q6H PRN 06/28/21 07/29/21 Pembrolizumab [Keytruda] 200 mg IVP Q21D 06/28/21 07/29/21 Budesonide [Pulmicort Flexhaler] 2 puff INHALATION RT-BID 07/29/21 07/29/21 Cholestyramine (with Sugar) 4 gm PO DAILY PRN 07/29/21 07/29/21 [Cholestyramine Packet] Gabapentin [Neurontin] 300 mg PO HS 07/29/21 07/29/21 Ipratropium-Albuterol Nebulize 3 ml INHALATION RT-QID PRN 07/29/21 07/29/21 [Duoneb 0.5 mg-3 mg/3 ml Soln] Multivitamins, Thera [Multivitamin 1 tab PO DAILY@1200 07/29/21 07/29/21 (formulary)] Sennosides-Docusate Sodium 2 tab PO BID 07/29/21 07/29/21 [Senokot-S] fentaNYL 100MCG/HR PATCH 1 patch TRANSDERM Q72H 07/29/21 07/29/21 [Duragesic 100MCG/HR] guaiFENesin [Mucinex] 1,200 mg PO Q12HR PRN 07/29/21 07/29/21 oxyCODONE HCL [oxyCODONE HCL (IR)] 10 mg PO Q4H PRN 07/29/21 07/29/21 polyethylene glycoL 3350 [Miralax] 17 gm PO DAILY PRN 07/29/21 07/29/21 predniSONE See Taper PO DIRECTED 07/29/21 07/30/21 Previous Rx's Medication Instructions Recorded Folic Acid 1 mg PO DAILY@1200 #30 tab 07/03/21 Thiamine [Vitamin B-1] 100 mg PO DAILY@1200 #30 tab 07/03/21 Allergies Allergy/AdvReac Type Severity Reaction Status Date / Time No Known Allergies Allergy Verified 07/29/21 21:43 Review of Systems ROS Statement: Those systems with pertinent positive or pertinent negative responses have been documented in the HPI. ROS Other: All systems not noted in ROS Statement are negative. Past Medical History Past Medical History: Cancer, COPD, GERD/Reflux Additional Past Medical History / Comment(s): back pain, Lung Cancer History of Any Multi-Drug Resistant Organisms: None Reported Past Surgical History: No Surgical Hx Reported Past Anesthesia/Blood Transfusion Reactions: No Reported Reaction Additional Past Anesthesia/Blood Transfusion Reaction / Comment(s): has never had anesthesia Past Psychological History: Anxiety Smoking Status: Former smoker Past Alcohol Use History: None Reported Past Drug Use History: None Reported - Past Family History Father Additional Family Medical History / Comment(s): Lung Cancer Mother Family Medical History: No Reported History General Exam Limitations: no limitations Course Vital Signs 07/29/21 07/29/21 07/29/21 19:31 20:20 20:58 Temperature 98.9 F Pulse Rate 103 H Respiratory 20 24 Rate Blood Pressure 105/75 O2 Sat by Pulse 96 95 Oximetry 07/29/21 07/29/21 07/30/21 21:01 21:41 00:13 Temperature Pulse Rate 84 85 81 Respiratory 24 24 22 Rate Blood Pressure 117/86 113/89 111/81 O2 Sat by Pulse 100 99 95 Oximetry 07/30/21 07/30/21 07/30/21 02:26 05:24 07:26 Temperature 98.1 F Pulse Rate 82 74 78 Respiratory 22 18 20 Rate Blood Pressure 107/85 107/75 O2 Sat by Pulse 94 L 95 98 Oximetry 07/30/21 07/30/21 07/30/21 10:04 10:16 10:41 Temperature Pulse Rate 84 84 90 Respiratory 18 Rate Blood Pressure 117/82 O2 Sat by Pulse 99 Oximetry 07/30/21 15:00 Temperature 98.2 F Pulse Rate 79 Respiratory 18 Rate Blood Pressure 113/74 O2 Sat by Pulse 96 Oximetry Procedures - [place] Protocol (Time Out) Procedure Performed:: Thoravent Performing Provider: Leyla Kramer Nurse: Tico Amaya Patient Identification (2 identifiers required): Chart, Verbal, Arm Band, Name, Birthdate, Medical Record Number 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 IV access established laboratory studies are conducted. Sodium low at 130. Troponin is negative. Covid not detected. Patient given a liter bolus of normal saline. Chest x-ray was performed which demonstrates a large right-sided pneumothorax without evidence of tension. Patient has right suprahilar mass. 13-Romanian Thoravent is placed after the patient is given 1 mg of Dilaudid and 1 mg of Ativan. Post procedure chest x-ray is shot before patient is placed on suction. This second x-ray demonstrates continued pneumothorax. Patient is kept on suction for approximately an hour and x-rays performed which demonstrates significant clearing of the right-sided pneumothorax. Patient will be admitted to Dr. Cazares who I spoke with. Will consult Dr. Holley. Patient remained in stable condition awaiting a bed on the floor - Lab Data Result diagrams: 08/06/21 14:30 08/06/21 14:30 Lab Results 07/29/21 07/29/21 07/29/21 Range/Units 19:37 19:53 19:53 WBC 13.4 H (3.8-10.6) k/uL RBC 3.84 L (4.30-5.90) m/uL Hgb 11.0 L (13.0-17.5) gm/dL Hct 35.2 L (39.0-53.0) % MCV 91.7 (80.0-100.0) fL MCH 28.7 (25.0-35.0) pg MCHC 31.3 (31.0-37.0) g/dL RDW 15.5 (11.5-15.5) % Plt Count 448 (150-450) k/uL MPV 7.2 Neutrophils % 91 % Lymphocytes % 3 % Monocytes % 4 % Eosinophils % 0 % Basophils % 0 % Neutrophils # 12.2 H (1.3-7.7) k/uL Lymphocytes # 0.4 L (1.0-4.8) k/uL Monocytes # 0.6 (0-1.0) k/uL Eosinophils # 0.0 (0-0.7) k/uL Basophils # 0.0 (0-0.2) k/uL Hypochromasia Slight PT 11.1 (9.0-12.0) sec INR 1.0 (<1.2) APTT 24.9 (22.0-30.0) sec Sodium (137-145) mmol/L Potassium (3.5-5.1) mmol/L Chloride (98-107) mmol/L Carbon Dioxide (22-30) mmol/L Anion Gap mmol/L BUN (9-20) mg/dL Creatinine (0.66-1.25) mg/dL Est GFR (CKD-EPI)AfAm (>60 ml/min/1.73 sqM) Est GFR (CKD-EPI)NonAf (>60 ml/min/1.73 sqM) Glucose (74-99) mg/dL Calcium (8.4-10.2) mg/dL Total Bilirubin (0.2-1.3) mg/dL AST (17-59) U/L ALT (4-49) U/L Alkaline Phosphatase (38-126) U/L Troponin I (0.000-0.034) ng/mL Total Protein (6.3-8.2) g/dL Albumin (3.5-5.0) g/dL Coronavirus (PCR) Not Detected (Not Detectd) 07/29/21 07/29/21 Range/Units 19:53 19:53 WBC (3.8-10.6) k/uL RBC (4.30-5.90) m/uL Hgb (13.0-17.5) gm/dL Hct (39.0-53.0) % MCV (80.0-100.0) fL MCH (25.0-35.0) pg MCHC (31.0-37.0) g/dL RDW (11.5-15.5) % Plt Count (150-450) k/uL MPV Neutrophils % % Lymphocytes % % Monocytes % % Eosinophils % % Basophils % % Neutrophils # (1.3-7.7) k/uL Lymphocytes # (1.0-4.8) k/uL Monocytes # (0-1.0) k/uL Eosinophils # (0-0.7) k/uL Basophils # (0-0.2) k/uL Hypochromasia PT (9.0-12.0) sec INR (<1.2) APTT (22.0-30.0) sec Sodium 130 L (137-145) mmol/L Potassium 4.6 (3.5-5.1) mmol/L Chloride 93 L (98-107) mmol/L Carbon Dioxide 32 H (22-30) mmol/L Anion Gap 5 mmol/L BUN 15 (9-20) mg/dL Creatinine 0.52 L (0.66-1.25) mg/dL Est GFR (CKD-EPI)AfAm >90 (>60 ml/min/1.73 sqM) Est GFR (CKD-EPI)NonAf >90 (>60 ml/min/1.73 sqM) Glucose 132 H (74-99) mg/dL Calcium 9.0 (8.4-10.2) mg/dL Total Bilirubin 0.4 (0.2-1.3) mg/dL AST 25 (17-59) U/L ALT 12 (4-49) U/L Alkaline Phosphatase 98 (38-126) U/L Troponin I <0.012 (0.000-0.034) ng/mL Total Protein 5.9 L (6.3-8.2) g/dL Albumin 2.9 L (3.5-5.0) g/dL Coronavirus (PCR) (Not Detectd) - EKG Data EKG Comments: EKG demonstrates normal sinus rhythm with a ventricular rate of 95. Irritable 134. QRS 82. QTC of 457. There are biphasic T waves in V3 through the 6. Some J-point elevation in 2, 3 Disposition Clinical Impression: Lung cancer, Pneumothorax Disposition: ADMITTED IP TO THIS [facility] Condition: Serious Is patient prescribed a controlled substance at d/c from ED?: No Decision to Admit Reason: Admit from EC Decision Date: 07/29/21 Decision Time: 23:17
[2021-07-29] MEDS ORDERED: IPRATROPIUM-ALBUTEROL 3 ML NEB INHALATION PRN (23:20)
[2021-07-29] MEDS ORDERED: CHOLESTYRAMINE (WITH SUGAR) 4 GM PACKET PO PRN (23:20)
[2021-07-29] MEDS ORDERED: predniSONE 10 MG TAB PO SCH (23:30)
[2021-07-30] MEDS: PARoxetine 20 MG TAB PO SCH ×2 (00:07→20:12)
[2021-07-30] MEDS: SENNOSIDES-DOCUSATE SODIUM 1 EACH TAB PO SCH ×3 (00:08→20:12)
[2021-07-30] MEDS: MAGNESIUM OXIDE 400 MG TAB PO SCH ×2 (00:08→20:12)
[2021-07-30] MEDS: GABAPENTIN 300 MG CAP PO SCH ×2 (02:01→20:12)
[2021-07-30] MEDS: SODIUM CHLORIDE 0.9% 1,000 ML IV SCH ×3 (02:02→17:09)
[2021-07-30 07:46] LABS: Basophils % (A) 0 %; Eosinophils % (A) 0 %; HCT 35.6 % (39.0-53.0); HGB 11.2 gm/dL (13.0-17.5); Hypochromasia Moderate; Lymphocytes # (A) 0.4 k/uL (1.0-4.8); Lymphocytes % (A) 5 %; MCH 29.5 pg (25.0-35.0); MCHC 31.6 g/dL (31.0-37.0); MCV 93.5 fL (80.0-100.0); Monocytes # (A) 0.5 k/uL (0-1.0); Monocytes % (A) 6 %; Neutrophils # (A) 7.3 k/uL (1.3-7.7); Neutrophils % (A) 87 %; Platelet Count 399 k/uL (150-450); RBC 3.81 m/uL (4.30-5.90); WBC 8.3 k/uL (3.8-10.6)
[2021-07-30 08:01] LABS: African American GFR (CKD) >90 (>60 ml/min/1.73 sqM); Anion Gap 2 mmol/L; Blood Urea Nitrogen 14 mg/dL (9-20); Calcium 8.7 mg/dL (8.4-10.2); Carbon Dioxide 32 mmol/L (22-30); Chloride 97 mmol/L (98-107); Glucose 97 mg/dL (74-99); Non-African American GFR(CKD) >90 (>60 ml/min/1.73 sqM); Potassium 4.1 mmol/L (3.5-5.1); Sodium 131 mmol/L (137-145)
[2021-07-30] MEDS ORDERED: METOCLOPRAMIDE 5 MG TAB PO PRN (09:00)
[2021-07-30] MEDS ORDERED: polyethylene glycoL 3350 17 GM POWD.PACK PO PRN (09:00)
[2021-07-30] MEDS: SYMBICORT 80-4.5 MCG INHALER INHALATION SCH ×2 (10:06→18:52)
[2021-07-30] MEDS: PANTOPRAZOLE 40 MG TABLET PO SCH (10:40)
--- NOTE | 2021-07-30 11:29 | P.CNPUL ---
History of Present Illness Consult date: 07/30/21 Requesting physician: Manolo Cazares Reason for consult: dyspnea, pneumothorax, abnormal CXR/CT Chief complaint: Shortness of breath History of present illness: This is a very pleasant 56-year-old somewhat cachectic male patient with a known history of severe Gold stage III COPD with an FEV1 value of 40% of predicted maintained on Trelegy, prednisone and DuoNeb inhalations in the outpatient [facility], and non-small cell lung cancer, locally invasive at time of diagnosis and probably currently metastatic. His original diagnosis was discovered in June 2020 with an initial lung mass in the suprahilar region with postobstructive pneumonia and biopsy was consistent with poorly differentiated non-small cell lung cancer. He has been following with medical and radiation oncology. He had been on immunotherapy in the form Keytruda. He presented to the emergency room last evening with complaints of shortness of breath and some right-sided chest discomfort. Initial chest x-ray revealed a large right-sided pneumothorax with no evidence of tension. Noted COPD and continued right suprahilar pulmonary mass. A Thoravent chest tube was placed in the emergency room and follow-up chest x-ray reveals near complete reexpansion of the right lung. Continue density of the right perihilar and extending to the right upper lobe. The left lung is clear. He is seen today in the emergency room. He is currently sitting up in a stretcher. Awake and alert in no acute distress. Breathing easier today compared to yesterday. Still some ongoing right-sided chest discomfort. He is maintaining good O2 saturations in the mid to upper 90s on 3 L/m per nasal cannula. White count 8.3. Hemoglobin 11.2. Sodium 131. Potassium 4.1. Creatinine 0.57. Troponin negative 1. Yusuf virus by PCR not detected. He's been initiated on Symbicort, DuoNeb inhalations and medication for pain. Review of Systems REVIEW OF SYSTEMS: CONSTITUTIONAL: Positive for weight loss. EYES: Denies change in vision. EARS, NOSE, MOUTH, THROAT: Denies headaches, denies sore throat. CARDIOVASCULAR: Denies chest pain, palpitations or syncopal episodes. RESPIRATORY: Positive for shortness of breath, no cough, congestion or hemoptysis. GASTROINTESTINAL: Denies change in appetite, denies abdominal pain GENITOURINARY: Denies hematuria, denies infections. MUSKULOSKELETAL: Denies pain, denies swelling. INTEGUMENTARY: Denies rash, denies eczema. NEUROLOGICAL: Denies recent memory loss, no recent seizure activity. PSYCHIATRIC: Denies anxiety, denies depression. HEMATOLOGIC/LYMPHATIC: Denies anemia, denies enlarged lymph nodes. Past Medical History Past Medical History: Cancer, COPD, GERD/Reflux, Syncope Additional Past Medical History / Comment(s): Pt recently admitted to [facility] on 06/28/21 with exacerbation COPD/possible R sided pneumonia/splenic mass, anemia, hyponatremia and protein calorie malnutrition. Other hx: R lung nonsmall cell carcinoma with chemo/radiation and now immunotherapy, home oxygen normally at 2L/NC but recently at 4L/NC, chronic back pain/generalized pain History of Any Multi-Drug Resistant Organisms: None Reported Past Surgical History: No Surgical Hx Reported Additional Past Surgical History / Comment(s): Bronchoscopy Past Anesthesia/Blood Transfusion Reactions: No Reported Reaction Additional Past Anesthesia/Blood Transfusion Reaction / Comment(s): has never had anesthesia Smoking Status: Former smoker - Past Family History Father Family Medical History: Cancer Additional Family Medical History / Comment(s): Lung Cancer Mother Family Medical History: No Reported History Medications and Allergies Home Medications Medication Instructions Recorded Confirmed Type Albuterol Nebulized [Ventolin 2.5 mg INHALATION RT-Q6H PRN 07/08/20 07/29/21 History Nebulized] Fluticasone/Umeclidin/Vilanter 1 puff INHALATION RT-DAILY 11/19/20 07/29/21 History [Trelegy Ellipta 200-62.5-25] Omeprazole 40 mg PO DAILY 11/19/20 07/29/21 History PARoxetine [Paxil] 20 mg PO HS 11/19/20 07/29/21 History Ibuprofen [Motrin] 400 mg PO TID PRN 12/25/20 07/29/21 History Metoclopramide [Reglan] 5 mg PO TID PRN 06/11/21 07/29/21 History Magnesium Oxide [Mag-Ox] 400 mg PO HS 06/28/21 07/29/21 History Ondansetron Odt [Zofran ODT] 4 mg PO Q6H PRN 06/28/21 07/29/21 History Pembrolizumab [Keytruda] 200 mg IVP Q21D 06/28/21 07/29/21 History Folic Acid 1 mg PO DAILY@1200 #30 tab 07/03/21 07/29/21 Rx Thiamine [Vitamin B-1] 100 mg PO DAILY@1200 #30 tab 07/03/21 07/29/21 Rx Budesonide [Pulmicort Flexhaler] 2 puff INHALATION RT-BID 07/29/21 07/29/21 History Cholestyramine (with Sugar) 4 gm PO DAILY PRN 07/29/21 07/29/21 History [Cholestyramine Packet] Gabapentin [Neurontin] 300 mg PO HS 07/29/21 07/29/21 History Ipratropium-Albuterol Nebulize 3 ml INHALATION RT-QID PRN 07/29/21 07/29/21 History [Duoneb 0.5 mg-3 mg/3 ml Soln] Multivitamins, Thera [Multivitamin 1 tab PO DAILY@1200 07/29/21 07/29/21 History (formulary)] Sennosides-Docusate Sodium 2 tab PO BID 07/29/21 07/29/21 History [Senokot-S] fentaNYL 100MCG/HR PATCH 1 patch TRANSDERM Q72H 07/29/21 07/29/21 History [Duragesic 100MCG/HR] guaiFENesin [Mucinex] 1,200 mg PO Q12HR PRN 07/29/21 07/29/21 History oxyCODONE HCL [oxyCODONE HCL (IR)] 10 mg PO Q4H PRN 07/29/21 07/29/21 History polyethylene glycoL 3350 [Miralax] 17 gm PO DAILY PRN 07/29/21 07/29/21 History predniSONE See Taper PO DIRECTED 07/29/21 07/30/21 History Allergies Allergy/AdvReac Type Severity Reaction Status Date / Time No Known Allergies Allergy Verified 07/29/21 21:43 Physical Exam Vitals: Vital Signs Temp Pulse Resp BP Pulse Ox 07/30/21 10:41 90 18 117/82 99 07/30/21 10:16 84 07/30/21 10:04 84 07/30/21 07:26 98.1 F 78 20 98 07/30/21 05:24 74 18 107/75 95 07/30/21 02:26 82 22 107/85 94 L 07/30/21 00:13 81 22 111/81 95 07/29/21 21:41 85 24 113/89 99 07/29/21 21:01 84 24 117/86 100 07/29/21 20:58 24 07/29/21 20:20 95 07/29/21 19:31 98.9 F 103 H 20 105/75 96 Intake and Output 07/29/21 07/30/21 07/30/21 22:59 06:59 14:59 Other: Weight 45.359 kg 45.359 kg GENERAL EXAM: Alert, pleasant, cachectic 56-year-old male patient, on 3 L nasal cannula comfortable in no apparent distress. HEAD: Normocephalic. EYES: Normal reaction of pupils, equal size. NOSE: Clear with pink turbinates. THROAT: No erythema or exudates. NECK: No masses, no JVD. CHEST: No chest wall deformity. Right sided Thora-Vent to wall suction. No leak currently. LUNGS: Equal air entry with no crackles, wheeze, rhonchi or dullness. Diminished CVS: S1 and S2 normal with no audible murmur, regular rhythm. ABDOMEN: No hepatosplenomegaly, normal bowel sounds, no guarding or rigidity. SPINE: No scoliosis or deformity SKIN: No rashes CENTRAL NERVOUS SYSTEM: No focal deficits, tone is normal in all 4 extremities. EXTREMITIES: There is no peripheral edema. No clubbing, no cyanosis. Peripheral pulses are intact. Results - Laboratory Findings CBC and BMP: 07/30/21 07:27 07/30/21 07:27 PT/INR, D-dimer PT 11.1 sec (9.0-12.0) 07/29/21 19:53 INR 1.0 (<1.2) 07/29/21 19:53 Abnormal lab findings: Abnormal Labs 07/29/21 07/29/21 07/30/21 19:53 19:53 07:27 WBC 13.4 H RBC 3.84 L 3.81 L Hgb 11.0 L 11.2 L Hct 35.2 L 35.6 L Neutrophils # 12.2 H Lymphocytes # 0.4 L 0.4 L Sodium 130 L Chloride 93 L Carbon Dioxide 32 H Creatinine 0.52 L Glucose 132 H Total Protein 5.9 L Albumin 2.9 L 07/30/21 07:27 WBC RBC Hgb Hct Neutrophils # Lymphocytes # Sodium 131 L Chloride 97 L Carbon Dioxide 32 H Creatinine 0.57 L Glucose Total Protein Albumin - Diagnostic Findings Chest x-ray: image reviewed Assessment and Plan Assessment: 1 Acute hypoxemic respiratory failure secondary to an acute right-sided large pneumothorax. Status post Dura-Vent placement on 07/29/2021 with near complete reexpansion of the right lung. 2 History of stage VIOLA poorly differentiated non-small cell lung cancer diagnosed in June 2020 via navigational bronchoscopy. The patient has questionable splenic metastasis. He had undergone 4 cycles of carbo/Alimta and currently receiving Keytruda. He had also undergone consolidative radiation to the large right lung mass due to pain from chest wall invasion and minimum distant disease. He did have progression of the large lesion of the spleen which was not amenable to SBRT. 3 Recent hospitalization for right lower lobe pneumonia and bacteremia with fever secondary to pseudomonas aeruginosa and discharged on 07/03/2021 4 Former smoker Plan: The patient was seen and evaluated Chest x-ray and labs reviewed Near complete reexpansion of the right lung status post Thora-Vent placement Continue Symbicort, DuoNeb inhalations Add incentive spirometer Adequate pain control Follow-up chest x-ray in a.m. We will continue to follow and make further recommendations based on his clinical status I, the cosigning physician, performed a history & physical examination of the patient. Lungs sounds are clear. Diminished. Maintaining good O2 saturations in the 90s on 3 L/m per nasal cannula. I discussed the assessment and plan of care with my nurse practitioner, Audrey Marcus. I attest to the above consultation as dictated by her. Time with Patient: Greater than 30
[2021-07-30] MEDS: FLUTICASONE 44 MCG INHALER INHALATION SCH ×2 (11:52→18:50)
[2021-07-30] MEDS: IPRATROPIUM 0.5 MG/2.5 ML NEBU INHALATION SCH ×4 (11:52→18:52)
[2021-07-30] MEDS: MULTIVITAMINS, THERA 1 EACH TAB PO SCH (12:59)
[2021-07-30] MEDS: FOLIC ACID 1 MG TAB PO SCH (12:59)
[2021-07-30] MEDS: THIAMINE 100 MG TAB PO SCH (12:59)
[2021-07-30] MEDS ORDERED: predniSONE 10 MG TAB PO SCH (13:00)
[2021-07-30] MEDS ORDERED: ACETAMINOPHEN TAB 325 MG TAB PO PRN (14:34)
[2021-07-30] MEDS ORDERED: MELATONIN 3 MG TABLET PO PRN (14:34)
[2021-07-30] MEDS: methylPREDNISolone SOD SUCCI 40 MG/ML 1 ML VIAL IV SCH (17:00)
[2021-07-30] MEDS: guaiFENesin 600 MG TABLET.ER PO SCH ×2 (17:40→21:38)
--- NOTE | 2021-07-30 19:40 | P.HPIM ---
History of Present Illness H&P Date: 07/30/21 Chief Complaint: Cough with sputum History of presenting complaint: This is a very pleasant 56-year-old patient of Dr. Cabello. followed by Dr. Saleem of the videotape sales representative, Dr. Daniel the oncologist and Dr. Floyd Medina from radiation oncology. Diagnosis of with lung cancer. Has only had radiation treatment and chemotherapy. Currently getting immunotherapy. For about a week patient been having increasing amount of cough. Bringing up some green yellow and bloody sputum. Appetite has been poor. Bowels are okay. At home uses 3 L of oxygen. Has been having weight loss. Significantly short of breath and some wheezing. Tired rundown. In the ER the patient was found to have a large sided pneumothorax. 13-Latvian Thora-vent was placed by ER physician. Repeat chest x-ray showed continued pneumothorax. Patient is put on suction for about an hour and subsequent x-ray showed improvement. This morning patient still short of breath but slightly better. Tired. Continues to have his chronic low back pain which is significant Review of systems: GEN.: Tired EYES: None HEENT: None NECK: None RESPIRATORY: As above CARDIOVASCULAR: None GASTROINTESTINAL: None GENITOURINARY: None MUSCULOSKELETAL: Back pain LYMPHATICS: None HEMATOLOGICAL: None PSYCHIATRY: None NEUROLOGICAL: None Past medical history to include: Lung cancer, COPD, GERD, Social history: Patient smoked a pack a day for about 37 years, stopped around 2018. Used to work in a [employer] shop. 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 Lives with daughter. No alcohol. Family history: Lung cancer Physical examination: VITAL SIGNS: [98.9, 103, 20, 105/75, 96% room air then 100% nonrebreather at initial presentation GENERAL: BMI 16.1, reclining in bed, awake, short of breath. Loss of muscle mass in fact. Thora-vent anterior right chest wall EYES: Pupils equal. Conjunctiva palel. HEENT: External appearance of nose and ears normal, oral cavity grossly normal. NECK: JVD not raised; masses not palpable. HEART: First and second heart sounds are normal; no edema. LUNGS: Not able to speak in full sentences, accessory muscles are working, Respiratory rate increased diminished breath sounds prolonged expiration. ABDOMEN: Soft, nontender, liver spleen not palpable, no masses palpable. PSYCH: Alert and oriented x3; mood and affect anxiousl. MUSCULOSKELETAL:No Clubbing/cyanosis;muscles-grossly intact. Evidence of OA NEUROLOGICAL: Cranial nerves grossly intact; no facial asymmetry, power and sensation grossly intact. LYMPHATICS: No lymph nodes palpable in the axilla and neck INVESTIGATIONS, reviewed in the clinical context: White count 8.3 hemoglobin 11.2 platelets 399 sodium 131 potassium 4.1 bicarb 32 BUN 14 creatinine 0.5 to EKG tracing personally reviewed by me-normal sinus rhythm. P pulmonale. T wave changes. Admission labs: Sodium 1:30 albumin 2.9 white count 13.4 hemoglobin 11 Chest x-ray film personally reviewed by [id number] pneumothorax. Right upper lobe mass Assessment and plan: -Right-sided pneumothorax, treated with Thora-vent in the ER. Lungs expanded. Follow with pulmonary -acute COPD exacerbation in a previous smoker. DuoNeb. IV steroids. Inhaled steroids. Long-acting beta agonist. -Acute hypoxic respiratory failure from pneumothorax and pneumonia 4 L nasal cannula -Chronic hypoxic respiratory failure from underlying COPD 2-3 L of oxygen at home -Suspect underlying pneumonia with gram-negative organism Cefepime 2 g every 8 -Lung cancer with metastatic disease status post chemotherapy and radiation treatment. Currently on immunotherapy. Consult oncology -Anxiety not otherwise specified Paxil 20 mg daily at bedtime -Anorexia secondary to underlying malignancy Encourage oral intake -Severe protein calorie malnutrition from decreased oral intake from underlying malignancy Ensure. Dietitian. -GERD Protonix -Chronic Back pain from malignancy Duragesic patch 100 g, oxycodone 10 mg every 4 when necessary -Full code IV Solu-Medrol. DuoNeb. Right chest Thora-vent. Cefepime 2 g every 8. Sputum for Gram stain and culture. Resume home medications. Care was discussed with the patient. Patient wants to remain full code. Consultation to pulmonary, oncology. Given the complexity and severity of patient's condition expect the patient to be in the hospital at least for 2 overnights Past Medical History Past Medical History: Cancer, COPD, GERD/Reflux, Syncope Additional Past Medical History / Comment(s): Pt recently admitted to [facility] on 06/28/21 with exacerbation COPD/possible R sided pneumonia/splenic mass, anemia, hyponatremia and protein calorie malnutrition. Other hx: R lung nonsmall cell carcinoma with chemo/radiation and now immunotherapy, home oxygen normally at 2L/NC but recently at 4L/NC, chronic back pain/generalized pain History of Any Multi-Drug Resistant Organisms: None Reported Past Surgical History: No Surgical Hx Reported Additional Past Surgical History / Comment(s): Bronchoscopy Past Anesthesia/Blood Transfusion Reactions: No Reported Reaction Additional Past Anesthesia/Blood Transfusion Reaction / Comment(s): has never had anesthesia Smoking Status: Former smoker - Past Family History Father Family Medical History: Cancer Additional Family Medical History / Comment(s): Lung Cancer Mother Family Medical History: No Reported History Medications and Allergies Home Medications Medication Instructions Recorded Confirmed Type Albuterol Nebulized [Ventolin 2.5 mg INHALATION RT-Q6H PRN 07/08/20 07/29/21 History Nebulized] Fluticasone/Umeclidin/Vilanter 1 puff INHALATION RT-DAILY 11/19/20 07/29/21 History [Trelegy Ellipta 200-62.5-25] Omeprazole 40 mg PO DAILY 11/19/20 07/29/21 History PARoxetine [Paxil] 20 mg PO HS 11/19/20 07/29/21 History Ibuprofen [Motrin] 400 mg PO TID PRN 12/25/20 07/29/21 History Metoclopramide [Reglan] 5 mg PO TID PRN 06/11/21 07/29/21 History Magnesium Oxide [Mag-Ox] 400 mg PO HS 06/28/21 07/29/21 History Ondansetron Odt [Zofran ODT] 4 mg PO Q6H PRN 06/28/21 07/29/21 History Pembrolizumab [Keytruda] 200 mg IVP Q21D 06/28/21 07/29/21 History Folic Acid 1 mg PO DAILY@1200 #30 tab 07/03/21 07/29/21 Rx Thiamine [Vitamin B-1] 100 mg PO DAILY@1200 #30 tab 07/03/21 07/29/21 Rx Budesonide [Pulmicort Flexhaler] 2 puff INHALATION RT-BID 07/29/21 07/29/21 History Cholestyramine (with Sugar) 4 gm PO DAILY PRN 07/29/21 07/29/21 History [Cholestyramine Packet] Gabapentin [Neurontin] 300 mg PO HS 07/29/21 07/29/21 History Ipratropium-Albuterol Nebulize 3 ml INHALATION RT-QID PRN 07/29/21 07/29/21 History [Duoneb 0.5 mg-3 mg/3 ml Soln] Multivitamins, Thera [Multivitamin 1 tab PO DAILY@1200 07/29/21 07/29/21 History (formulary)] Sennosides-Docusate Sodium 2 tab PO BID 07/29/21 07/29/21 History [Senokot-S] fentaNYL 100MCG/HR PATCH 1 patch TRANSDERM Q72H 07/29/21 07/29/21 History [Duragesic 100MCG/HR] guaiFENesin [Mucinex] 1,200 mg PO Q12HR PRN 07/29/21 07/29/21 History oxyCODONE HCL [oxyCODONE HCL (IR)] 10 mg PO Q4H PRN 07/29/21 07/29/21 History polyethylene glycoL 3350 [Miralax] 17 gm PO DAILY PRN 07/29/21 07/29/21 History predniSONE See Taper PO DIRECTED 07/29/21 07/30/21 History Allergies Allergy/AdvReac Type Severity Reaction Status Date / Time No Known Allergies Allergy Verified 07/29/21 21:43 Physical Exam Vitals: Vital Signs Temp Pulse Resp BP Pulse Ox 07/30/21 10:41 90 18 117/82 99 07/30/21 10:16 84 07/30/21 10:04 84 07/30/21 07:26 98.1 F 78 20 98 07/30/21 05:24 74 18 107/75 95 07/30/21 02:26 82 22 107/85 94 L 07/30/21 00:13 81 22 111/81 95 07/29/21 21:41 85 24 113/89 99 07/29/21 21:01 84 24 117/86 100 07/29/21 20:58 24 07/29/21 20:20 95 07/29/21 19:31 98.9 F 103 H 20 105/75 96 Intake and Output 07/29/21 07/30/21 07/30/21 22:59 06:59 14:59 Other: Weight 45.359 kg 45.359 kg Results CBC & Chem 7: 07/30/21 07:27 07/30/21 07:27 Labs: Abnormal Lab Results - Last 24 Hours (Table) 07/29/21 07/29/21 07/30/21 Range/Units 19:53 19:53 07:27 WBC 13.4 H (3.8-10.6) k/uL RBC 3.84 L 3.81 L (4.30-5.90) m/uL Hgb 11.0 L 11.2 L (13.0-17.5) gm/dL Hct 35.2 L 35.6 L (39.0-53.0) % Neutrophils # 12.2 H (1.3-7.7) k/uL Lymphocytes # 0.4 L 0.4 L (1.0-4.8) k/uL Sodium 130 L (137-145) mmol/L Chloride 93 L (98-107) mmol/L Carbon Dioxide 32 H (22-30) mmol/L Creatinine 0.52 L (0.66-1.25) mg/dL Glucose 132 H (74-99) mg/dL Total Protein 5.9 L (6.3-8.2) g/dL Albumin 2.9 L (3.5-5.0) g/dL 07/30/21 Range/Units 07:27 WBC (3.8-10.6) k/uL RBC (4.30-5.90) m/uL Hgb (13.0-17.5) gm/dL Hct (39.0-53.0) % Neutrophils # (1.3-7.7) k/uL Lymphocytes # (1.0-4.8) k/uL Sodium 131 L (137-145) mmol/L Chloride 97 L (98-107) mmol/L Carbon Dioxide 32 H (22-30) mmol/L Creatinine 0.57 L (0.66-1.25) mg/dL Glucose (74-99) mg/dL Total Protein (6.3-8.2) g/dL Albumin (3.5-5.0) g/dL Thrombosis Risk Factor Assmnt - Choose All That Apply Any of the Below Risk Factors Present?: Yes Each Factor Represents 1 point: Abnormal pulmonary function (COPD), Age 41-60 years, Serious lung disease incl. pneumonia (< 1month) Other Risk Factors: Yes Each Risk Factor Represents 2 Points: Malignancy Other congenital or acquired thrombophilia - If yes, enter type in comment: No Thrombosis Risk Factor Assessment Total Risk Factor Score: 5 Thrombosis Risk Factor Assessment Level: High Risk
[2021-07-30] MEDS: IPRATROPIUM-ALBUTEROL 3 ML NEB INHALATION SCH (19:55)
[2021-07-30] MEDS: CEFEPIME 2 GM in SODIUM CHLORIDE 0.9% 100 ML IVPB SCH (20:12)
[2021-07-31] MEDS: methylPREDNISolone SOD SUCCI 40 MG/ML 1 ML VIAL IV SCH ×2 (00:08→08:57)
[2021-07-31] MEDS: SODIUM CHLORIDE 0.9% 1,000 ML IV SCH ×3 (00:08→12:29)
[2021-07-31] MEDS: IPRATROPIUM-ALBUTEROL 3 ML NEB INHALATION SCH ×7 (00:33→19:34)
[2021-07-31] MEDS: CEFEPIME 2 GM in SODIUM CHLORIDE 0.9% 100 ML IVPB SCH ×3 (03:58→20:42)
[2021-07-31] MEDS: SYMBICORT 80-4.5 MCG INHALER INHALATION SCH ×2 (08:04→19:35)
[2021-07-31] MEDS: guaiFENesin 600 MG TABLET.ER PO SCH ×2 (08:54→20:42)
[2021-07-31] MEDS: PANTOPRAZOLE 40 MG TABLET PO SCH (08:54)
[2021-07-31] MEDS: THIAMINE 100 MG TAB PO SCH (08:54)
[2021-07-31] MEDS: FOLIC ACID 1 MG TAB PO SCH (08:54)
[2021-07-31] MEDS: SENNOSIDES-DOCUSATE SODIUM 1 EACH TAB PO SCH ×2 (08:54→20:43)
[2021-07-31] MEDS: MULTIVITAMINS, THERA 1 EACH TAB PO SCH (08:54)
[2021-07-31] MEDS: ONDANSETRON ODT 4 MG TAB PO PRN (09:39)
--- NOTE | 2021-07-31 10:15 | XR ---
EXAMINATION TYPE: XR chest 1V portable DATE OF EXAM: 07/31/2021 CLINICAL HISTORY: Right-sided pneumothorax progress study. History of lung cancer. TECHNIQUE: Single AP portable upright view of the chest is obtained. COMPARISON: Chest x-ray from 2 days earlier and older studies. CTA chest June 28, 2021. FINDINGS: Stable right-sided chest tube. Background chronic emphysematous change redemonstrated. Car diac silhouette size stable and within normal limits. Chronic right-sided volume loss. Worsening over lying subcutaneous emphysema makes evaluation suboptimal. There is small right upper lung pneumothora x laterally increased in size from most recent x-ray estimated near 10%. Increased opacities in the r ight upper and lower lung remain present. Osseous structures remain demineralized. Chronic right becca r masslike opacity. IMPRESSION: Worsening overlying subcutaneous emphysema extending into the neck. Enlarging lateral rig ht upper lung pneumothorax despite chest tube placement. Background chronic emphysematous change and right-sided volume loss with right hilar masslike opacity consistent with probable neoplasm. Persistent right upper and lower lung infiltrates and/or atelecta sis. No significant change in these findings from 2 days earlier.
--- NOTE | 2021-07-31 13:27 | P.CONS ---
History of Present Illness - Reason for Consult Consult date: 07/31/21 lUNg Cancer Requesting physician: Manolo Cazares - History of Present Illness This is moris nice patient who presented with worsening dyspnea and back back of about 2 months duration,a CXR showed a suspicious right lung mass,CT scan of chest on 05/05/2020 revealed 6 cm right lung mass in paraspinal region superior segment of RLL and 1.5 cm right bronchial node. On 07/11/2020,bronchoscopy and transbronchial biopsy of RLL was positive for poorly differentiated non small cell lung carcinoma,IHC favoring adenocarcinoma. PFT revealed FEV1 of 38%. On 07/19/2020,PET scan revealed suspicious uptake in the larg right lung mass,measured 9.1x8.6cm,suspicious uptake in tracheobronchial level reflecting adenopathy or extension of the lung mass and a suspicious 3.2 cm splenic lesion. On 08/01/2020,brain MRI was negative for metastatic disease. NGS revealed no actionable mutation,PDL-1 was 100% On 08/23/2020,he started carboplatin/alimta and keytruda. On 10/11/2020,repeat PET scan revealed revealed minimally smaller right lung mass which much greater central necrosis,the splenic lesion is slightly larger but with new central necrosis. He completed 4 cycles of carboplatin/alimta/keytruda on 10/16/2020. He had consolidative XRT to his lung mass completed second week of 11/2020. On 01/14/2021,revealed improvement in the lung mass,however,the spleen lesion is larger. He received vaccination prior to spleen radiation on 03/09/2021 On 05/01/2021,repeat CT scan of chest/abdomen/pelvis revealed stable disease in the lung,increase in spleen lesion (?post XRT) He feels tired,was recently in the hospital for pneumonia and bacterimia a,has chronic exertional dyspnea,dry cough,no recurrent hemoptysis,his right lower posterior back pain which is still not well controlled,currently on fentanyl and oxycodone since he left the hospital Dr. Tamiko mcgee increased fentanyl to 100 Mcg/hr,continue oxycodone for breakthrough pain,continue neurontin. He has an apt with pain clinic next week for possible nerve block He received cycle 12 of Keytruda on 07/18/21 He now re-presents to the emergency room with shortness of breath and some right-sided chest discomfort. Initial chest x-ray revealed a large right-sided pneumothorax with no evidence of tension. mention of the same right suprahilar pulmonary mass and known underlying copd. A chest tube was placed in the emergency room and follow-up chest x-ray was improved airation and expansion right lung. Continue density of the right perihilar and extending to the right upper lobe. Review of Systems All systems: negative Constitutional: Reports as per HPI Past Medical History Past Medical History: Cancer, COPD, GERD/Reflux, Syncope Additional Past Medical History / Comment(s): Pt recently admitted to [facility] on 06/28/21 with exacerbation COPD/possible R sided pneumonia/splenic mass, anemia, hyponatremia and protein calorie malnutrition. Other hx: R lung nonsmall cell carcinoma with chemo/radiation and now immunotherapy, home oxygen normally at 2L/NC but recently at 4L/NC, chronic back pain/generalized pain History of Any Multi-Drug Resistant Organisms: None Reported Past Surgical History: No Surgical Hx Reported Additional Past Surgical History / Comment(s): Bronchoscopy Past Anesthesia/Blood Transfusion Reactions: No Reported Reaction Additional Past Anesthesia/Blood Transfusion Reaction / Comm: has never had anesthesia Smoking Status: Former smoker - Past Family History Father Family Medical History: Cancer Additional Family Medical History / Comment(s): Lung Cancer Mother Family Medical History: No Reported History Medications and Allergies Home Medications Medication Instructions Recorded Confirmed Type Albuterol Nebulized [Ventolin 2.5 mg INHALATION RT-Q6H PRN 07/08/20 07/29/21 History Nebulized] Fluticasone/Umeclidin/Vilanter 1 puff INHALATION RT-DAILY 11/19/20 07/29/21 History [Trelegy Ellipta 200-62.5-25] Omeprazole 40 mg PO DAILY 11/19/20 07/29/21 History PARoxetine [Paxil] 20 mg PO HS 11/19/20 07/29/21 History Ibuprofen [Motrin] 400 mg PO TID PRN 12/25/20 07/29/21 History Metoclopramide [Reglan] 5 mg PO TID PRN 06/11/21 07/29/21 History Magnesium Oxide [Mag-Ox] 400 mg PO HS 06/28/21 07/29/21 History Ondansetron Odt [Zofran ODT] 4 mg PO Q6H PRN 06/28/21 07/29/21 History Pembrolizumab [Keytruda] 200 mg IVP Q21D 06/28/21 07/29/21 History Folic Acid 1 mg PO DAILY@1200 #30 tab 07/03/21 07/29/21 Rx Thiamine [Vitamin B-1] 100 mg PO DAILY@1200 #30 tab 07/03/21 07/29/21 Rx Budesonide [Pulmicort Flexhaler] 2 puff INHALATION RT-BID 07/29/21 07/29/21 History Cholestyramine (with Sugar) 4 gm PO DAILY PRN 07/29/21 07/29/21 History [Cholestyramine Packet] Gabapentin [Neurontin] 300 mg PO HS 07/29/21 07/29/21 History Ipratropium-Albuterol Nebulize 3 ml INHALATION RT-QID PRN 07/29/21 07/29/21 History [Duoneb 0.5 mg-3 mg/3 ml Soln] Multivitamins, Thera [Multivitamin 1 tab PO DAILY@1200 07/29/21 07/29/21 History (formulary)] Sennosides-Docusate Sodium 2 tab PO BID 07/29/21 07/29/21 History [Senokot-S] fentaNYL 100MCG/HR PATCH 1 patch TRANSDERM Q72H 07/29/21 07/29/21 History [Duragesic 100MCG/HR] guaiFENesin [Mucinex] 1,200 mg PO Q12HR PRN 07/29/21 07/29/21 History oxyCODONE HCL [oxyCODONE HCL (IR)] 10 mg PO Q4H PRN 07/29/21 07/29/21 History polyethylene glycoL 3350 [Miralax] 17 gm PO DAILY PRN 07/29/21 07/29/21 History predniSONE See Taper PO DIRECTED 07/29/21 07/30/21 History Allergies Allergy/AdvReac Type Severity Reaction Status Date / Time No Known Allergies Allergy Verified 07/29/21 21:43 Physical Exam Vitals: Vital Signs Temp Pulse Pulse Resp BP BP Pulse Ox 07/31/21 08:41 80 07/31/21 08:33 82 07/31/21 03:56 71 18 123/72 96 07/31/21 01:16 18 07/31/21 00:43 84 07/31/21 00:33 84 07/31/21 00:00 97.6 F 76 18 120/76 95 07/30/21 20:00 97.7 F 73 20 144/82 97 07/30/21 17:26 98.1 F 74 124/77 97 07/30/21 15:00 98.2 F 79 18 113/74 96 07/30/21 10:41 90 18 117/82 99 07/30/21 10:16 84 07/30/21 10:04 84 Intake and Output 07/30/21 07/31/21 07/31/21 22:59 06:59 14:59 Output Total 400 400 Balance -400 -400 Output: Urine 400 400 Other: Voiding Method Urinal Urinal - Constitutional General appearance: cooperative - EENT Eyes: EOMI ENT: NA/AT - Neck Neck: normal ROM - Respiratory Respiratory: left: dullness (chest tube) - Cardiovascular Rhythm: regularly irregular - Gastrointestinal General gastrointestinal: soft - Integumentary Integumentary: pale - Neurologic Neurologic: CNII-XII intact - Musculoskeletal Musculoskeletal: generalized weakness - Psychiatric Psychiatric: A&O x's 3, appropriate affect, intact judgment & insight Results CBC & Chem 7: 07/30/21 07:27 07/30/21 07:27 Chest x-ray: report reviewed Assessment and Plan (1) Lung cancer Current Visit: Yes Status: Acute Code(s): C34.90 - MALIGNANT NEOPLASM OF UNSP PART OF UNSP BRONCHUS OR LUNG SNOMED Code(s): 626910384 (2) Pneumothorax Narrative/Plan: Status post chest tube in ER Pulmonary is following Current Visit: Yes Status: Acute Code(s): J93.9 - PNEUMOTHORAX, UNSPECIFIED SNOMED Code(s): 53770984 Plan: Physician Attest: I have completed the full history and p hysical and agree with above dictation, dictated as a scribe.
--- NOTE | 2021-07-31 14:31 | P.PN ---
Subjective Progress Note Date: 07/31/21 This is a very pleasant 56-year-old somewhat cachectic male patient with a known history of severe Gold stage III COPD with an FEV1 value of 40% of predicted maintained on Trelegy, prednisone and DuoNeb inhalations in the outpatient setting, and non-small cell lung cancer, locally invasive at time of diagnosis and probably currently metastatic. His original diagnosis was discovered in June 2020 with an initial lung mass in the suprahilar region with postobstructive pneumonia and biopsy was consistent with poorly differentiated non-small cell lung cancer. He has been following with medical and radiation oncology. He had been on immunotherapy in the form Keytruda. He presented to the emergency room last evening with complaints of shortness of breath and some right-sided chest discomfort. Initial chest x-ray revealed a large right-sided pneumothorax with no evidence of tension. Noted COPD and continued right suprahilar pulmonary mass. A Thoravent chest tube was placed in the emergency room and follow-up chest x-ray reveals near complete reexpansion of the right lung. Continue density of the right perihilar and extending to the right upper lobe. The left lung is clear. He is seen today in the emergency room. He is currently sitting up in a stretcher. Awake and alert in no acute distress. Breathing easier today compared to yesterday. Still some ongoing right-sided chest discomfort. He is maintaining good O2 saturations in the mid to upper 90s on 3 L/m per nasal cannula. White count 8.3. Hemoglobin 11.2. Sodium 131. Potassium 4.1. Creatinine 0.57. Troponin negative 1. Yusuf virus by PCR not detected. He's been initiated on Symbicort, DuoNeb inhalations and medication for pain. On today's evaluation of 07/31/2021 the patient is being seen for a follow-up. He is still having some discomfort across the right chest area where the pneumothoraxes. The patient's chest x-ray from today shows a persistent pneumothorax around 10% and the right lung which is somewhat loculated in the right upper lobe peripherally. There is also worsening of the subcutaneous emphysema along the right chest area and the neck area. The Thoravent is in a good location and she is showing ongoing air leak and the Pleur-evac. Hemodynamically stable. He denies having any specific complaints for now. The total amount of fluid output from the Thoravent is in order of 50 mL. The patient has a white cell count of 8.3 with a hemoglobin of 11.2. Is a 40 with a creatinine of 0.5 and a sodium level of 131. He does have COPD. He is on bronchodilators. He was also started on empiric antibiotic coverage by the medical team. He was started on steroids which I prefer not to because of his underlying pneumothorax and previous history of immunotherapy intake. Noted the chest x-ray also showed a persistent right upper lobe and lower lobe opacity/infiltrate probably related to underlying malignancy. Objective - Vital Signs Vital signs: Vital Signs Temp 97.5 F L 07/31/21 08:00 Pulse 74 07/31/21 11:49 Resp 18 07/31/21 08:00 BP 109/71 07/31/21 08:00 Pulse Ox 92 L 07/31/21 09:33 Intake & Output 07/30/21 07/31/21 07/31/21 18:59 06:59 18:59 Intake Total 480 Output Total 800 50 Balance -800 430 Weight 45.359 kg 45.359 kg Intake: Oral 480 Output: Chest Tube Drainage 50 Thora-Vent Left Anterior 50 Chest Urine 800 Other: Voiding Method Urinal Urinal # Voids 1 - Exam GENERAL EXAM: Alert, pleasant, cachectic 56-year-old male patient, on 3 L nasal cannula comfortable in no apparent distress. HEAD: Normocephalic. EYES: Normal reaction of pupils, equal size. NOSE: Clear with pink turbinates. THROAT: No erythema or exudates. NECK: No masses, no JVD. The patient has subcutaneous emphysema in the neck and upper lateral chest area. Thoravent is in a good location for now. CHEST: No chest wall deformity. Right sided Thora-Vent to wall suction. No leak currently. LUNGS: Equal air entry with no crackles, wheeze, rhonchi or dullness. Diminished CVS: S1 and S2 normal with no audible murmur, regular rhythm. ABDOMEN: No hepatosplenomegaly, normal bowel sounds, no guarding or rigidity. SPINE: No scoliosis or deformity SKIN: No rashes CENTRAL NERVOUS SYSTEM: No focal deficits, tone is normal in all 4 extremities. EXTREMITIES: There is no peripheral edema. No clubbing, no cyanosis. Peripheral pulses are intact. - Labs CBC & Chem 7: 02/02/22 07:27 07/30/21 07:27 Assessment and Plan Plan: 1 Acute hypoxemic respiratory failure secondary to an acute right-sided large pneumothorax. Status post fluoroscopy vent placement on 07/29/2021 with near complete reexpansion of the right lung. The chest x-ray from today shows persistent pneumothorax on the right. There is positive air leak. There is development of subcutaneous emphysema along the right lateral chest area and the neck. No hemodynamic instability. The Thoravent is still functional and there is positive air leak with total amount of output from the Thoravent has been in the order of 50 mL. 2 History of stage VIOLA poorly differentiated non-small cell lung cancer diagnosed in June 2020 via navigational bronchoscopy. The patient has questionable splenic metastasis. He had undergone 4 cycles of carbo/Alimta and currently receiving Keytruda. He had also undergone consolidative radiation to the large right lung mass due to pain from chest wall invasion and minimum dis tant disease. He did have progression of the large lesion of the spleen which was not amenable to SBRT. 3 Recent hospitalization for right lower lobe pneumonia and bacteremia with fever secondary to pseudomonas aeruginosa and discharged on 07/03/2021 4 COPD 5 history of smoking. 6 Acute on top of chronic hypoxic respiratory failure. The patient is on O2 at 2 L at home and the patient is currently on 4 L Plan: Keep the Thoravent in place Monitor air leak Provide incentive spirometer This continued IV Solu-Medrol of assisted due to concerns of healing in the setting of a pneumothorax. Furthermore the patient has received immunotherapy on outpatient basis. Agree on antibiotics which is essentially empiric in nature We'll continue to follow
--- NOTE | 2021-07-31 14:53 | P.PN ---
Progress Note - Text Progress Note Date: 07/31/21 Chief Complaint: Cough with sputum History of presenting complaint: This is a very pleasant 56-year-old patient of Dr. Cabello. followed by Dr. Saleem of the air defense artillery officer, Dr. Daniel the oncologist and Dr. Floyd Medina from radiation oncology. Diagnosis of with lung cancer. Has only had radiation treatment and chemotherapy. Currently getting immunotherapy. For about a week patient been having increasing amount of cough. Bringing up some green yellow and bloody sputum. Appetite has been poor. Bowels are okay. At home uses 3 L of oxygen. Has been having weight loss. Significantly short of breath and some wheezing. Tired rundown. In the ER the patient was found to have a large sided pneumothorax. 13-Slovak Thora-vent was placed by ER physician. Repeat chest x-ray showed continued pneumothorax. Patient is put on suction for about an hour and subsequent x-ray showed improvement. This morning patient still short of breath but slightly better. Tired. Continues to have his chronic low back pain which is significant July 31: Patient has some pneumothorax on the right side. Some air leak. Subcutaneous emphysema. Given his immunosuppressed state steroids discontinued by pulmonary. Patient's breathing a bit better today. Congested cough. Eating some. Tired. Short of breath. IV cefepime Review of systems: Was done for constitutional, cardiovascular, GI, pulmonary. relevant finding as above Active Medications Acetaminophen (Acetaminophen Tab 325 Mg Tab) 650 mg PO Q6HR PRN PRN Reason: Mild Pain or Fever > 100.5 Albuterol/Ipratropium (Ipratropium-Albuterol 3 Ml Neb) 3 ml INHALATION RT-Q4H [facility] Last Admin: 07/31/21 11:36 Dose: 3 ml Documented by: Alprazolam (Alprazolam 0.25 Mg Tab) 0.25 mg PO TID PRN PRN Reason: Anxiety Budesonide/Formoterol Fumarate (Symbicort 80-4.5 Mcg Inhaler) 2 puff INHALATION RT-BID [facility] Last Admin: 07/31/21 08:04 Dose: Not Given Documented by: Cholestyramine Resin (Cholestyramine (With Sugar) 4 Gm Packet) 4 gm PO DAILY PRN PRN Reason: Diarrhea Fentanyl (Fentanyl 100mcg/Hr Patch) 1 patch TRANSDERM Q72H [facility]; Protocol Last Admin: 07/30/21 02:02 Dose: 1 patch Documented by: Folic Acid (Folic Acid 1 Mg Tab) 1 mg PO DAILY@1200 [facility] Last Admin: 07/31/21 08:54 Dose: 1 mg Documented by: Gabapentin (Gabapentin 300 Mg Cap) 300 mg PO HS [facility] Last Admin: 07/30/21 20:12 Dose: 300 mg Documented by: Guaifenesin (Guaifenesin 600 Mg Tablet.Er) 600 mg PO Q12HR [facility] Last Admin: 07/31/21 08:54 Dose: 600 mg Documented by: Cefepime HCl 2 gm/ Sodium (Chloride) 100 mls @ 25 mls/hr IVPB Q8H [facility] Last Admin: 07/31/21 12:29 Dose: 25 mls/hr Documented by: Sodium Chloride (Saline 0.9%) 1,000 mls @ 75 mls/hr IV .[id number] [facility] Last Admin: 07/31/21 12:29 Dose: 75 mls/hr Documented by: Magnesium Oxide (Magnesium Oxide 400 Mg Tab) 400 mg PO [facility] Last Admin: 07/30/21 20:12 Dose: 400 mg Documented by: Melatonin (Melatonin 3 Mg Tablet) 3 mg PO HS PRN PRN Reason: Insomnia Metoclopramide HCl (Metoclopramide 5 Mg Tab) 5 mg PO TID PRN PRN Reason: Nausea Multivitamins (Multivitamins, Thera 1 Each Tab) 1 each PO DAILY@1200 [facility] Last Admin: 07/31/21 08:54 Dose: 1 each Documented by: Naloxone HCl (Naloxone 0.4 Mg/Ml 1 Ml Vial) 0.2 mg IV Q2M PRN PRN Reason: Opioid Reversal Ondansetron HCl (Ondansetron Odt 4 Mg Tab) 4 mg PO Q6H PRN PRN Reason: Nausea And Vomiting Last Admin: 07/31/21 09:39 Dose: 4 mg Documented by: Oxycodone HCl (Oxycodone Hcl 5 Mg Tab) 10 mg PO Q4H PRN PRN Reason: Pain Last Admin: 07/31/21 08:55 Dose: 10 mg Documented by: Pantoprazole Sodium (Pantoprazole 40 Mg Tablet) 40 mg PO DAILY [facility] Last Admin: 07/31/21 08:54 Dose: 40 mg Documented by: Paroxetine HCl (Paroxetine 20 Mg Tab) 20 mg PO HS [facility] Last Admin: 07/30/21 20:12 Dose: 20 mg Documented by: Polyethylene Glycol (Polyethylene Glycol 3350 17 Gm Powd.Pack) 17 gm PO DAILY PRN PRN Reason: Constipation Senna/Docusate Sodium (Sennosides-Docusate Sodium 1 Each Tab) 2 each PO BID [facility] Last Admin: 07/31/21 08:54 Dose: 2 each Documented by: Thiamine HCl (Thiamine 100 Mg Tab) 100 mg PO DAILY@1200 [facility] Last Admin: 07/31/21 08:54 Dose: 100 mg Documented by: Past medical history to include: Lung cancer, COPD, GERD, Social history: Patient smoked a pack a day for about 37 years, stopped around 2018. 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 Lives with daughter. No alcohol. Family history: Lung cancer Physical examination: VITAL SIGNS: 97.5, 87, 22, 109/71, 93% on 4 L GENERAL: , reclining in bed, awake, short of breath. [ Loss of muscle mass and subcutaneous fat]. Thora-vent anterior right chest wall EYES: Pupils equal. Conjunctiva pale HEENT: External appearance of nose and ears normal, oral cavity grossly normal. NECK: JVD not raised; masses not palpable. HEART: First and second heart sounds are normal; no edema. LUNGS: Respiratory rate increased diminished breath sounds prolonged expiration. Right chest Thora-vent. Subcutaneous emphysema. ABDOMEN: Soft, nontender, liver spleen not palpable, no masses palpable. PSYCH: Alert and oriented x3; mood and affect anxiousl. MUSCULOSKELETAL:No Clubbing/cyanosis;muscles-grossly intact. Evidence of OA INVESTIGATIONS, reviewed in the clinical context: Chest x-ray film personally reviewed by me [July 31]: Infiltrate. Some right-sided pneumothorax White count 8.3 hemoglobin 11.2 platelets 399 sodium 131 potassium 4.1 bicarb 32 BUN 14 creatinine 0.5 to EKG tracing personally reviewed by me-normal sinus rhythm. P pulmonale. T wave changes. Admission labs: Sodium 1:30 albumin 2.9 white count 13.4 hemoglobin 11 Chest x-ray film personally reviewed by [id number] pneumothorax. Right upper lobe mass Assessment and plan: -Right-sided pneumothorax, treated with Thora-vent in the ER. Some residual pneumothorax on the right side. Thora-vent. Some air leak. -acute COPD exacerbation in a previous smoker. DuoNeb. IV steroids-discontinued. Symbicort -Acute hypoxic respiratory failure from pneumothorax and pneumonia: Slow to respond 4 L nasal cannula -Chronic hypoxic respiratory failure from underlying COPD 2-3 L of oxygen at home -Hyponatremia from decreased oral intake Encourage oral intake -Suspect underlying pneumonia with gram-negative organism Cefepime 2 g every 8 -Lung cancer with metastatic disease status post chemotherapy and radiation treatment. Currently on immunotherapy. Consult oncology -Anxiety not otherwise specified Paxil 20 mg daily at bedtime -Anorexia secondary to underlying malignancy Encourage oral intake -Severe protein calorie malnutrition from decreased oral intake from underlying malignancy Ensure. Dietitian. -GERD Protonix -Chronic Back pain from malignancy Duragesic patch 100 g, oxycodone 10 mg every 4 when necessary -Full code IV cefepime. DuoNeb. Other medications to continue. Some residual pneumothorax on the right side. Some air leak. Subcutaneous emphysema. Discussed with patient. Follow.
[2021-07-31] MEDS: ALPRAZolam 0.25 MG TAB PO PRN (19:06)
[2021-07-31] MEDS: MAGNESIUM OXIDE 400 MG TAB PO SCH (20:42)
[2021-07-31] MEDS: GABAPENTIN 300 MG CAP PO SCH (20:42)
[2021-07-31] MEDS: PARoxetine 20 MG TAB PO SCH (20:43)
[2021-08-01] MEDS: IPRATROPIUM-ALBUTEROL 3 ML NEB INHALATION SCH ×7 (00:30→22:00)
[2021-08-01] MEDS: SODIUM CHLORIDE 0.9% 1,000 ML IV SCH ×2 (02:43→09:04)
[2021-08-01] MEDS: CEFEPIME 2 GM in SODIUM CHLORIDE 0.9% 100 ML IVPB SCH ×3 (05:26→20:54)
--- NOTE | 2021-08-01 08:38 | XR ---
EXAMINATION TYPE: XR chest 1V portable DATE OF EXAM: 08/01/2021 Comparison: 07/31/2021 Clinical History: 56-year-old male shortness of breath Findings: Heart normal size. Similar mild elongation/ectasia of the thoracic aorta. Similar volume loss in the right hemithorax. Hyperinflation on the left. Right thoracic vent catheter in place with small right apical pneumothorax currently measuring 8 mm versus 1.37 m, previously. A pneumatocele/air cyst measu ring 8.4 cm in the right midlung. Patchy and interstitial changes on the right are similar. Subcutane ous emphysema along the right chest wall is unchanged. Impression: 1. COPD with similar volume loss in the right hemithorax, right-sided Thoravent catheter, and small r ight apical pneumothorax, currently measuring 8 mm versus 1.3 cm, previously. 2. Similar 8 cm right midlung air cyst along with patchy and interstitial densities in the right lung .
[2021-08-01] MEDS: PANTOPRAZOLE 40 MG TABLET PO SCH (09:03)
[2021-08-01] MEDS: guaiFENesin 600 MG TABLET.ER PO SCH ×2 (09:03→20:54)
[2021-08-01] MEDS: SENNOSIDES-DOCUSATE SODIUM 1 EACH TAB PO SCH ×2 (09:03→20:54)
[2021-08-01] MEDS: ALPRAZolam 0.25 MG TAB PO PRN ×3 (09:08→23:07)
[2021-08-01] MEDS: SYMBICORT 80-4.5 MCG INHALER INHALATION SCH ×2 (09:24→19:43)
[2021-08-01 09:35] LABS: African American GFR (CKD) >90 (>60 ml/min/1.73 sqM); Anion Gap 2 mmol/L; Blood Urea Nitrogen 9 mg/dL (9-20); Calcium 8.5 mg/dL (8.4-10.2); Carbon Dioxide 30 mmol/L (22-30); Chloride 98 mmol/L (98-107); Glucose 113 mg/dL (74-99); Non-African American GFR(CKD) >90 (>60 ml/min/1.73 sqM); Sodium 130 mmol/L (137-145)
[2021-08-01 09:36] LABS: Potassium 3.5 mmol/L (3.5-5.1)
[2021-08-01] MEDS: MULTIVITAMINS, THERA 1 EACH TAB PO SCH (13:14)
[2021-08-01] MEDS: THIAMINE 100 MG TAB PO SCH (13:14)
[2021-08-01] MEDS: FOLIC ACID 1 MG TAB PO SCH (13:14)
--- NOTE | 2021-08-01 14:08 | P.PN ---
Subjective Progress Note Date: 08/01/21 This is a very pleasant 56-year-old somewhat cachectic male patient with a known history of severe Gold stage III COPD with an FEV1 value of 40% of predicted maintained on Trelegy, prednisone and DuoNeb inhalations in the outpatient setting, and non-small cell lung cancer, locally invasive at time of diagnosis and probably currently metastatic. His original diagnosis was discovered in June 2020 with an initial lung mass in the suprahilar region with postobstructive pneumonia and biopsy was consistent with poorly differentiated non-small cell lung cancer. He has been following with medical and radiation oncology. He had been on immunotherapy in the form Keytruda. He presented to the emergency room last evening with complaints of shortness of breath and some right-sided chest discomfort. Initial chest x-ray revealed a large right-sided pneumothorax with no evidence of tension. Noted COPD and continued right suprahilar pulmonary mass. A Thoravent chest tube was placed in the emergency room and follow-up chest x-ray reveals near complete reexpansion of the right lung. Continue density of the right perihilar and extending to the right upper lobe. The left lung is clear. He is seen today in the emergency room. He is currently sitting up in a stretcher. Awake and alert in no acute distress. Breathing easier today compared to yesterday. Still some ongoing right-sided chest discomfort. He is maintaining good O2 saturations in the mid to upper 90s on 3 L/m per nasal cannula. White count 8.3. Hemoglobin 11.2. Sodium 131. Potassium 4.1. Creatinine 0.57. Troponin negative 1. Yusuf virus by PCR not detected. He's been initiated on Symbicort, DuoNeb inhalations and medication for pain. On today's evaluation of 07/31/2021 the patient is being seen for a follow-up. He is still having some discomfort across the right chest area where the pneumothoraxes. The patient's chest x-ray from today shows a persistent pneumothorax around 10% and the right lung which is somewhat loculated in the right upper lobe peripherally. There is also worsening of the subcutaneous emphysema along the right chest area and the neck area. The Thoravent is in a good location and she is showing ongoing air leak and the Pleur-evac. Hemodynamically stable. He denies having any specific complaints for now. The total amount of fluid output from the Thoravent is in order of 50 mL. The patient has a white cell count of 8.3 with a hemoglobin of 11.2. Is a 40 with a creatinine of 0.5 and a sodium level of 131. He does have COPD. He is on bronchodilators. He was also started on empiric antibiotic coverage by the medical team. He was started on steroids which I prefer not to because of his underlying pneumothorax and previous history of immunotherapy intake. Noted the chest x-ray also showed a persistent right upper lobe and lower lobe opacity/infiltrate probably related to underlying malignancy. 08/01/2021, the chest x-ray from today shows volume of the right lung compared to the left and that is small right apical pneumothorax. Nevertheless, there was no evidence of any air leak. There is still some persistent subcutaneous emphysema in the neck and the chest area. Check the Thoravent. Flushed the catheter. Flushed the tubing. The tubing was applied and was replaced. Currently the patient is doing well. He still having a congested cough. He sti ll broken spastic and somewhat wheezy. Upper from the chest was a minimal in terms of fluid into the order of 50-60 mL. The patient is otherwise doing well. Patient is hemodynamically stable. No altered mentation. No significant cough or sputum production. Sodium is at 1:30 with a potassium level of 3.5, creatinine is 0.4. Coronary 19 testing has been negative. No other significant events overnight. He is using incentive spirometer. Objective - Vital Signs Vital signs: Vital Signs Temp 98.1 F 08/01/21 08:00 Pulse 84 08/01/21 12:00 Resp 18 08/01/21 08:00 BP 110/73 08/01/21 12:00 Pulse Ox 95 08/01/21 12:00 Intake & Output 07/31/21 08/01/21 08/01/21 18:59 06:59 18:59 Intake Total 720 220 Output Total 400 1745 7 Balance 320 -1745 213 Weight 45.359 kg Intake: Oral 720 220 Output: Chest Tube Drainage 50 45 7 Thora-Vent Left Anterior 50 45 7 Chest Urine 350 1700 Other: Voiding Method Urinal Urinal # Voids 1 3 - Exam GENERAL EXAM: Alert, pleasant, cachectic 56-year-old male patient, on 3 L nasal cannula comfortable in no apparent distress. HEAD: Normocephalic. EYES: Normal reaction of pupils, equal size. NOSE: Clear with pink turbinates. THROAT: No erythema or exudates. NECK: No masses, no JVD. The patient has subcutaneous emphysema in the neck and upper lateral chest area. Thoravent is in a good location for now. CHEST: No chest wall deformity. Right sided Thora-Vent to wall suction. No leak currently. LUNGS: Equal air entry with no crackles, wheeze, rhonchi or dullness. Diminished CVS: S1 and S2 normal with no audible murmur, regular rhythm. ABDOMEN: No hepatosplenomegaly, normal bowel sounds, no guarding or rigidity. SPINE: No scoliosis or deformity SKIN: No rashes CENTRAL NERVOUS SYSTEM: No focal deficits, tone is normal in all 4 extremities. EXTREMITIES: There is no peripheral edema. No clubbing, no cyanosis. Peripheral pulses are intact. - Labs CBC & Chem 7: 07/30/21 07:27 08/01/21 08:58 Labs: Abnormal Lab Results - Last 24 Hours (Table) 08/01/21 Range/Units 08:58 Sodium 130 L (137-145) mmol/L Creatinine 0.46 L (0.66-1.25) mg/dL Glucose 113 H (74-99) mg/dL Assessment and Plan Plan: 1 Acute hypoxemic respiratory failure secondary to an acute right-sided large pneumothorax. The patient was given a Thoravent in the emergency department. There is a tiny right apical pneumothorax. The Thoravent will be kept in place. The catheter was reviewed and evaluated. The air was aspirated from the right lung for the Thoravent. The tubing was also replaced. A repeat chest x-ray will be done tomorrow. Chest x-ray from today still showing a right apical pneumothorax. 2 History of stage VIOLA poorly differentiated non-small cell lung cancer diagnosed in June 2020 via navigational bronchoscopy. The patient has questionable splenic metastasis. He had undergone 4 cycles of carbo/Alimta and currently receiving Keytruda. He had also undergone consolidative radiation to the large right lung mass due to pain from chest wall invasion and minimum distant disease. He did have progression of the large lesion of the spleen which was not amenable to SBRT. 3 Recent hospitalization for right lower lobe pneumonia and bacteremia with fever secondary to pseudomonas aeruginosa and discharged on 07/03/2021 4 COPD 5 history of smoking. 6 Acute on top of chronic hypoxic respiratory failure. The patient is on O2 at 2 L at home and the patient is currently on 4 L Plan: Keep the Thoravent in place Monitor for air leak. Repeat a chest x-ray in the morning Replaced the tubing Aspirated and out of the right lung Furthermore the patient has received immunotherapy on outpatient basis. Agree on antibiotics which is essentially empiric in nature We'll continue to follow
[2021-08-01 14:55] LABS: Basophils % (A) 0 %; Eosinophils % (A) 1 %; HCT 31.7 % (39.0-53.0); HGB 10.2 gm/dL (13.0-17.5); Hypochromasia Slight; Lymphocytes # (A) 0.2 k/uL (1.0-4.8); Lymphocytes % (A) 3 %; MCH 29.5 pg (25.0-35.0); MCHC 32.1 g/dL (31.0-37.0); MCV 92.1 fL (80.0-100.0); Mean Platelet Volume 8.1; Monocytes # (A) 0.5 k/uL (0-1.0); Monocytes % (A) 7 %; Neutrophils # (A) 6.8 k/uL (1.3-7.7); Neutrophils % (A) 89 %; Platelet Count 314 k/uL (150-450); RBC 3.45 m/uL (4.30-5.90); RDW 15.2 % (11.5-15.5); WBC 7.6 k/uL (3.8-10.6)
--- NOTE | 2021-08-01 18:05 | P.PN ---
Progress Note - Text Progress Note Date: 08/01/21 Chief Complaint: Cough with sputum History of presenting complaint: This is a very pleasant 56-year-old patient of Dr. Cabello. followed by Dr. Saleem of the drink mixer, Dr. Daniel the oncologist and Dr. Floyd Medina from radiation oncology. Diagnosis of with lung cancer. Has only had radiation treatment and chemotherapy. Currently getting immunotherapy. For about a week patient been having increasing amount of cough. Bringing up some green yellow and bloody sputum. Appetite has been poor. Bowels are okay. At home uses 3 L of oxygen. Has been having weight loss. Significantly short of breath and some wheezing. Tired rundown. In the ER the patient was found to have a large sided pneumothorax. 13-Divehi Thora-vent was placed by ER physician. Repeat chest x-ray showed continued pneumothorax. Patient is put on suction for about an hour and subsequent x-ray showed improvement. This morning patient still short of breath but slightly better. Tired. Continues to have his chronic low back pain which is significant July 31: Patient has some pneumothorax on the right side. Some air leak. Subcutaneous emphysema. Given his immunosuppressed state steroids discontinued by pulmonary. Patient's breathing a bit better today. Congested cough. Eating some. Tired. Short of breath. IV cefepime August 01: Dr. Holley detected Thora-vent and flushed the catheter./The tubing. Tubing was replaced. Congested cough continues. Oral intake fair. Diet. 4 L nasal cannula. Propped up in bed. Review of systems: Was done for constitutional, cardiovascular, GI, pulmonary. relevant finding as above Active Medications Acetaminophen (Acetaminophen Tab 325 Mg Tab) 650 mg PO Q6HR PRN PRN Reason: Mild Pain or Fever > 100.5 Albuterol/Ipratropium (Ipratropium-Albuterol 3 Ml Neb) 3 ml INHALATION RT-Q4H [facility] Last Admin: 08/01/21 15:49 Dose: 3 ml Documented by: Alprazolam (Alprazolam 0.25 Mg Tab) 0.25 mg PO TID PRN PRN Reason: Anxiety Last Admin: 08/01/21 15:05 Dose: 0.25 mg Documented by: Budesonide/Formoterol Fumarate (Symbicort 80-4.5 Mcg Inhaler) 2 puff INHALATION RT-BID [facility] Last Admin: 08/01/21 09:24 Dose: 2 puff Documented by: Cholestyramine Resin (Cholestyramine (With Sugar) 4 Gm Packet) 4 gm PO DAILY PRN PRN Reason: Diarrhea Fentanyl (Fentanyl 100mcg/Hr Patch) 1 patch TRANSDERM Q72H [facility]; Protocol Last Admin: 07/30/21 02:02 Dose: 1 patch Documented by: Folic Acid (Folic Acid 1 Mg Tab) 1 mg PO DAILY@1200 [facility] Last Admin: 08/01/21 13:14 Dose: 1 mg Documented by: Gabapentin (Gabapentin 300 Mg Cap) 300 mg PO [facility] Last Admin: 07/31/21 20:42 Dose: 300 mg Documented by: Guaifenesin (Guaifenesin 600 Mg Tablet.Er) 600 mg PO Q12HR [facility] Last Admin: 08/01/21 09:03 Dose: 600 mg Documented by: Cefepime HCl 2 gm/ Sodium (Chloride) 100 mls @ 25 mls/hr IVPB Q8H [facility] Last Admin: 08/01/21 13:14 Dose: 25 mls/hr Documented by: Sodium Chloride (Saline 0.9%) 1,000 mls @ 75 mls/hr IV .[id number] [facility] Last Admin: 08/01/21 09:04 Dose: 75 mls/hr Documented by: Magnesium Oxide (Magnesium Oxide 400 Mg Tab) 400 mg PO [facility] Last Admin: 07/31/21 20:42 Dose: 400 mg Documented by: Melatonin (Melatonin 3 Mg Tablet) 3 mg PO HS PRN PRN Reason: Insomnia Metoclopramide HCl (Metoclopramide 5 Mg Tab) 5 mg PO TID PRN PRN Reason: Nausea Multivitamins (Multivitamins, Thera 1 Each Tab) 1 each PO DAILY@1200 [facility] Last Admin: 08/01/21 13:14 Dose: 1 each Documented by: Naloxone HCl (Naloxone 0.4 Mg/Ml 1 Ml Vial) 0.2 mg IV Q2M PRN PRN Reason: Opioid Reversal Ondansetron HCl (Ondansetron Odt 4 Mg Tab) 4 mg PO Q6H PRN PRN Reason: Nausea And Vomiting Last Admin: 07/31/21 09:39 Dose: 4 mg Documented by: Oxycodone HCl (Oxycodone Hcl 5 Mg Tab) 10 mg PO Q4H PRN PRN Reason: Pain Last Admin: 08/01/21 15:05 Dose: 10 mg Documented by: Pantoprazole Sodium (Pantoprazole 40 Mg Tablet) 40 mg PO DAILY [facility] Last Admin: 08/01/21 09:03 Dose: 40 mg Documented by: Paroxetine HCl (Paroxetine 20 Mg Tab) 20 mg PO HS [facility] Last Admin: 07/31/21 20:43 Dose: 20 mg Documented by: Polyethylene Glycol (Polyethylene Glycol 3350 17 Gm Powd.Pack) 17 gm PO DAILY PRN PRN Reason: Constipation Senna/Docusate Sodium (Sennosides-Docusate Sodium 1 Each Tab) 2 each PO BID [facility] Last Admin: 08/01/21 09:03 Dose: 2 each Documented by: Thiamine HCl (Thiamine 100 Mg Tab) 100 mg PO DAILY@1200 [facility] Last Admin: 08/01/21 13:14 Dose: 100 mg Documented by: Past medical history to include: Lung cancer, COPD, GERD, Social history: Patient smoked a pack a day for about 37 years, stopped around 2017. 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 Lives with daughter. No alcohol. Family history: Lung cancer Physical examination: VITAL SIGNS: 98.1, 86, 22, 110/73, 95% on 4 L GENERAL: Propped up in bed, awake, some short of breath. [ Loss of muscle mass and subcutaneous fat]. Thora-vent anterior right chest wall EYES: Pupils equal. Conjunctiva pale HEENT: External appearance of nose and ears normal, oral cavity grossly normal. NECK: JVD not raised; masses not palpable. HEART: First and second heart sounds are normal; no edema. LUNGS: Respiratory rate increased diminished breath sounds prolonged expiration. Right chest Thora-vent. Connected to suction. Subcutaneous emphysema. ABDOMEN: Soft, nontender, liver spleen not palpable, no masses palpable. PSYCH: Alert and oriented x3; mood and affect anxious. MUSCULOSKELETAL:No Clubbing/cyanosis;muscles-grossly intact. Evidence of OA INVESTIGATIONS, reviewed in the clinical context: August 01: White count 7.60 globin 10.2 albumin 2.9 Chest x-ray film personally reviewed by me [July 31]: Infiltrate. Some right-sided pneumothorax White count 8.3 hemoglobin 11.2 platelets 399 sodium 131 potassium 4.1 bicarb 32 BUN 14 creatinine 0.5 to EKG tracing personally reviewed by me-normal sinus rhythm. P pulmonale. T wave changes. Admission labs: Sodium 1:30 albumin 2.9 white count 13.4 hemoglobin 11 Chest x-ray film personally reviewed by [id number] pneumothorax. Right upper lobe mass Assessment and plan: -Right-sided pneumothorax, treated with Thora-vent in the ER. Some residual pneumothorax on the right side. Thora-vent. Connected to suction. -acute COPD exacerbation in a previous smoker.: Slow to respond DuoNeb. IV steroids-discontinued. Symbicort -Acute hypoxic respiratory failure from pneumothorax and pneumonia: Slow to respond 4 L nasal cannula -Chronic hypoxic respiratory failure from underlying COPD 2-3 L of oxygen at home -Hyponatremia from decreased oral intake: Slow to respond Encourage oral intake -Suspect underlying pneumonia with gram-negative organism Cefepime 2 g every 8 -Lung cancer with metastatic disease status post chemotherapy and radiation treatment. Currently on immunotherapy. Consult oncology -Anxiety not otherwise specified Paxil 20 mg daily at bedtime -Anorexia secondary to underlying malignancy Encourage oral intake -Severe protein calorie malnutrition from decreased oral intake from underlying malignancy Ensure. Dietitian. -GERD Protonix -Chronic Back pain from malignancy Duragesic patch 100 g, oxycodone 10 mg every 4 when necessary -Full code IV cefepime. DuoNeb. Thora-vent connected to suction.. Some residual pneumothorax on the right side.. Subcutaneous emphysema. Discussed with patient. Encourage oral intake.
--- NOTE | 2021-08-01 19:21 | P.PN ---
Subjective Progress Note Date: 08/01/21 Principal diagnosis: lung cancer overall he looks clinically and subjectively improved today. He states he still feels pretty crummy. Objective - Vital Signs Vital signs: Vital Signs Temp 98.1 F 08/01/21 08:00 Pulse 84 08/01/21 12:00 Resp 18 08/01/21 08:00 BP 110/73 08/01/21 12:00 Pulse Ox 95 08/01/21 12:00 Intake & Output 07/31/21 08/01/21 08/01/21 18:59 06:59 18:59 Intake Total 720 220 Output Total 400 1745 7 Balance 320 -1745 213 Weight 45.359 kg Intake: Oral 720 220 Output: Chest Tube Drainage 50 45 7 Thora-Vent Left Anterior 50 45 7 Chest Urine 350 1700 Other: Voiding Method Urinal Urinal # Voids 1 3 - Exam - Constitutional General appearance: cooperative - EENT Eyes: EOMI ENT: NA/AT - Neck Neck: normal ROM - Respiratory Respiratory: left: dullness (chest tube) - Cardiovascular Rhythm: regularly irregular - Gastrointestinal General gastrointestinal: soft - Integumentary Integumentary: pale - Neurologic Neurologic: CNII-XII intact - Musculoskeletal Musculoskeletal: generalized weakness - Psychiatric Psychiatric: A&O x's 3, appropriate affect, intact judgment & insight - Labs CBC & Chem 7: 08/01/21 14:44 08/01/21 08:58 Labs: Abnormal Lab Results - Last 24 Hours (Table) 08/01/21 Range/Units 08:58 Sodium 130 L (137-145) mmol/L Creatinine 0.46 L (0.66-1.25) mg/dL Glucose 113 H (74-99) mg/dL Assessment and Plan (1) Lung cancer Current Visit: Yes Status: Acute Code(s): C34.90 - MALIGNANT NEOPLASM OF UNSP PART OF UNSP BRONCHUS OR LUNG SNOMED Code(s): 079470160 (2) Pneumothorax Narrative/Plan: Status post chest tube in ER Pulmonary is following Current Visit: Yes Status: Acute Code(s): J93.9 - PNEUMOTHORAX, UNSPECIFIED SNOMED Code(s): 45185922 Plan: COntinue to hold treatment for cancer until resolution of hospitalized problem Continue supportive care Physician Attest: I have completed the full history and p hysical and agree with above dictation, dictated as a scribe.
[2021-08-01] MEDS: PARoxetine 20 MG TAB PO SCH (20:54)
[2021-08-01] MEDS: MAGNESIUM OXIDE 400 MG TAB PO SCH (20:54)
[2021-08-01] MEDS: GABAPENTIN 300 MG CAP PO SCH (20:54)
[2021-08-01] MEDS: ONDANSETRON ODT 4 MG TAB PO PRN (21:04)
[2021-08-02] MEDS: IPRATROPIUM-ALBUTEROL 3 ML NEB INHALATION SCH ×6 (03:00→23:15)
[2021-08-02] MEDS: SODIUM CHLORIDE 0.9% 1,000 ML IV SCH ×2 (04:35→12:24)
[2021-08-02] MEDS: CEFEPIME 2 GM in SODIUM CHLORIDE 0.9% 100 ML IVPB SCH ×3 (04:35→19:48)
[2021-08-02] MEDS: SYMBICORT 80-4.5 MCG INHALER INHALATION SCH ×2 (07:44→19:36)
[2021-08-02] MEDS: SENNOSIDES-DOCUSATE SODIUM 1 EACH TAB PO SCH ×2 (08:18→19:49)
[2021-08-02] MEDS: guaiFENesin 600 MG TABLET.ER PO SCH ×2 (08:18→19:49)
[2021-08-02] MEDS: PANTOPRAZOLE 40 MG TABLET PO SCH (08:18)
--- NOTE | 2021-08-02 08:46 | XR ---
EXAMINATION TYPE: XR chest 1V portable DATE OF EXAM: 08/02/2021 CLINICAL HISTORY: Right-sided pneumothorax progress study. TECHNIQUE: Single AP portable upright view of the chest is obtained. COMPARISON: Chest x-ray from one day earlier and older studies FINDINGS: Stable right-sided chest tube. Background chronic emphysematous change redemonstrated. Car diac silhouette size stable and within normal limits. Chronic right-sided volume loss. Persistent sig nificant overlying subcutaneous emphysema makes evaluation suboptimal. The tiny right apical pneumoth orax now not clearly identified but there is new tiny basilar pneumothorax. Increased multifocal opac ities in the right lung remain present. Osseous structures remain demineralized. Chronic right hilar masslike opacity. IMPRESSION: Persistent significant overlying right-sided subcutaneous emphysema. Tiny right sided pne umothorax despite chest tube placement now seen in the base just above diaphragm. Background chronic emphysematous change and right-sided volume loss with right hilar masslike opacity consistent with probable neoplasm. Persistent multifocal right lung infiltrates and/or atelectasis.
[2021-08-02 08:50] LABS: Basophils % (A) 0 %; Eosinophils # (A) 0.1 k/uL (0-0.7); Eosinophils % (A) 1 %; HCT 34.1 % (39.0-53.0); HGB 10.7 gm/dL (13.0-17.5); Hypochromasia Slight; Lymphocytes # (A) 0.4 k/uL (1.0-4.8); Lymphocytes % (A) 4 %; MCH 28.9 pg (25.0-35.0); MCHC 31.3 g/dL (31.0-37.0); MCV 92.4 fL (80.0-100.0); Mean Platelet Volume 7.1; Monocytes # (A) 0.5 k/uL (0-1.0); Monocytes % (A) 5 %; Neutrophils # (A) 8.7 k/uL (1.3-7.7); Neutrophils % (A) 89 %; Platelet Count 298 k/uL (150-450); RBC 3.69 m/uL (4.30-5.90); RDW 15.2 % (11.5-15.5); WBC 9.7 k/uL (3.8-10.6)
[2021-08-02 09:18] LABS: African American GFR (CKD) >90 (>60 ml/min/1.73 sqM); Anion Gap 2 mmol/L; Blood Urea Nitrogen 8 mg/dL (9-20); Calcium 8.3 mg/dL (8.4-10.2); Carbon Dioxide 31 mmol/L (22-30); Chloride 95 mmol/L (98-107); Glucose 152 mg/dL (74-99); Non-African American GFR(CKD) >90 (>60 ml/min/1.73 sqM); Potassium 3.6 mmol/L (3.5-5.1); Sodium 128 mmol/L (137-145)
[2021-08-02] MEDS ORDERED: LIDOCAINE 1% INJ 10MG/ML (20 ML MDV) ONE (11:31)
--- NOTE | 2021-08-02 12:15 | XR ---
EXAMINATION TYPE: XR chest 1V portable DATE OF EXAM: 08/02/2021 CLINICAL HISTORY chest tube placement progress study. TECHNIQUE: Single AP portable upright view of the chest is obtained. COMPARISON: Chest x-ray from earlier today an older studies FINDINGS: New larger caliber right basilar chest tube. Background chronic emphysematous change redem onstrated. Cardiac silhouette size stable and within normal limits. Chronic right-sided volume loss r edemonstrated. Persistent significant overlying subcutaneous emphysema makes evaluation suboptimal. S mall to tiny right apical lobulated pneumothorax now seen. Tiny right basilar pneumothorax now not id entified.. Increased multifocal opacities in the right lung remain present. Osseous structures remain demineralized. Chronic right hilar masslike opacity. There is right midlung thin-walled cyst or cyst ic lesion better seen. Left lung remains clear. IMPRESSION: New large caliber right chest tube with small to tiny right apical pneumothorax estimated 10-15% now identified.
[2021-08-02] MEDS: KETOROLAC 30 MG/ML 1 ML VIAL IVP SCH ×3 (12:19→23:08)
[2021-08-02] MEDS: THIAMINE 100 MG TAB PO SCH (12:20)
[2021-08-02] MEDS: FOLIC ACID 1 MG TAB PO SCH (12:20)
[2021-08-02] MEDS: MULTIVITAMINS, THERA 1 EACH TAB PO SCH (12:20)
--- NOTE | 2021-08-02 13:29 | P.PN ---
Subjective Progress Note Date: 08/02/21 This is a very pleasant 56-year-old somewhat cachectic male patient with a known history of severe Gold stage III COPD with an FEV1 value of 40% of predicted maintained on Trelegy, prednisone and DuoNeb inhalations in the outpatient setting, and non-small cell lung cancer, locally invasive at time of diagnosis and probably currently metastatic. His original diagnosis was discovered in June 2020 with an initial lung mass in the suprahilar region with postobstructive pneumonia and biopsy was consistent with poorly differentiated non-small cell lung cancer. He has been following with medical and radiation oncology. He had been on immunotherapy in the form Keytruda. He presented to the emergency room last evening with complaints of shortness of breath and some right-sided chest discomfort. Initial chest x-ray revealed a large right-sided pneumothorax with no evidence of tension. Noted COPD and continued right suprahilar pulmonary mass. A Thoravent chest tube was placed in the emergency room and follow-up chest x-ray reveals near complete reexpansion of the right lung. Continue density of the right perihilar and extending to the right upper lobe. The left lung is clear. He is seen today in the emergency room. He is currently sitting up in a stretcher. Awake and alert in no acute distress. Breathing easier today compared to yesterday. Still some ongoing right-sided chest discomfort. He is maintaining good O2 saturations in the mid to upper 90s on 3 L/m per nasal cannula. White count 8.3. Hemoglobin 11.2. Sodium 131. Potassium 4.1. Creatinine 0.57. Troponin negative 1. Yusuf virus by PCR not detected. He's been initiated on Symbicort, DuoNeb inhalations and medication for pain. On today's evaluation of 07/31/2021 the patient is being seen for a follow-up. He is still having some discomfort across the right chest area where the pneumothoraxes. The patient's chest x-ray from today shows a persistent pneumothorax around 10% and the right lung which is somewhat loculated in the right upper lobe peripherally. There is also worsening of the subcutaneous emphysema along the right chest area and the neck area. The Thoravent is in a good location and she is showing ongoing air leak and the Pleur-evac. Hemodynamically stable. He denies having any specific complaints for now. The total amount of fluid output from the Thoravent is in order of 50 mL. The patient has a white cell count of 8.3 with a hemoglobin of 11.2. Is a 40 with a creatinine of 0.5 and a sodium level of 131. He does have COPD. He is on bronchodilators. He was also started on empiric antibiotic coverage by the medical team. He was started on steroids which I prefer not to because of his underlying pneumothorax and previous history of immunotherapy intake. Noted the chest x-ray also showed a persistent right upper lobe and lower lobe opacity/infiltrate probably related to underlying malignancy. 08/01/2021, the chest x-ray from today shows volume of the right lung compared to the left and that is small right apical pneumothorax. Nevertheless, there was no evidence of any air leak. There is still some persistent subcutaneous emphysema in the neck and the chest area. Check the Thoravent. Flushed the catheter. Flushed the tubing. The tubing was applied and was replaced. Currently the patient is doing well. He still having a congested cough. He sti ll broken spastic and somewhat wheezy. Upper from the chest was a minimal in terms of fluid into the order of 50-60 mL. The patient is otherwise doing well. Patient is hemodynamically stable. No altered mentation. No significant cough or sputum production. Sodium is at 1:30 with a potassium level of 3.5, creatinine is 0.4. Coronary 19 testing has been negative. No other significant events overnight. He is using incentive spirometer. 08/02/2021, clinically stable. Nevertheless, the Thoravent is not functioning appropriately as there is no ongoing air leak despite the fact that the patient was developing worsening subcutaneous emphysema and persistent pneumothorax on today's chest x-ray was also seen. Based on that, I made the decision to remove the Thoravent then I put a 28-Martiniquais chest tube in the right hemithorax. The chest tube is functioning there is persistent air leak at this point in time. The follow-up chest x-ray still showing a right apical pneumothorax along with volume loss in the right upper lobe. Otherwise, the patient has no specific complaints. Resting comfortably in bed. He has developed some subcutaneous emphysema over the chest and abdominal wall. Using incentive spirometer. His white cell count of 9.7 with a hemoglobin of 10.7. Sodium is at 125, BUN is at 8 with a creatinine of 0.4. He is on normal saline at rate of 75 mL an hour. He is also on IV cefepime. Objective - Vital Signs Vital signs: Vital Signs Temp 97.9 F 08/02/21 08:00 Pulse 100 08/02/21 08:00 Resp 18 08/02/21 08:00 BP 104/65 08/02/21 08:00 Pulse Ox 94 L 08/02/21 08:00 Intake & Output 08/01/21 08/02/21 08/02/21 18:59 06:59 18:59 Intake Total 845 Output Total 387 1006 10 Balance 458 -1006 -10 Intake: Intake, IV Titration 625 Amount Cefepime 2 gm In Sodium 100 Chloride 0.9% 100 ml @ 25 mls/hr IVPB Q8H [facility] Rx#: [id number] Sodium Chloride 0.9% 1, 525 000 ml @ 75 mls/hr IV . [id number] [facility] Rx#:[id number] Oral 220 Output: Chest Tube Drainage 37 6 10 Thora-Vent Left Anterior 37 6 10 Chest Urine 350 1000 Other: Voiding Method Urinal Urinal Urinal - Exam GENERAL EXAM: Alert, pleasant, cachectic 56-year-old male patient, on 3 L nasal cannula comfortable in no apparent distress. HEAD: Normocephalic. EYES: Normal reaction of pupils, equal size. NOSE: Clear with pink turbinates. THROAT: No erythema or exudates. NECK: No masses, no JVD. The patient has subcutaneous emphysema in the neck and upper lateral chest area. CHEST: No chest wall deformity. The patient is a 28-Martiniquais right-sided chest tube with persistent air leak and the Pleur-evac. There is also evidence of subcutaneous emphysema over the right anterior chest area lateral chest area and anterior abdominal wall. LUNGS: Equal air entry with no crackles, wheeze, rhonchi or dullness. Diminished CVS: S1 and S2 normal with no audible murmur, regular rhythm. ABDOMEN: No hepatosplenomegaly, normal bowel sounds, no guarding or rigidity. SPINE: No scoliosis or deformity SKIN: No rashes CENTRAL NERVOUS SYSTEM: No focal deficits, tone is normal in all 4 extremities. EXTREMITIES: There is no peripheral edema. No clubbing, no cyanosis. Peripheral pulses are intact. - Labs CBC & Chem 7: 08/02/21 08:32 08/02/21 08:32 Labs: Abnormal Lab Results - Last 24 Hours (Table) 08/01/21 08/02/21 08/02/21 Range/Units 14:44 08:32 08:32 RBC 3.45 L 3.69 L (4.30-5.90) m/uL Hgb 10.2 L 10.7 L (13.0-17.5) gm/dL Hct 31.7 L 34.1 L (39.0-53.0) % Neutrophils # 8.7 H (1.3-7.7) k/uL Lymphocytes # 0.2 L 0.4 L (1.0-4.8) k/uL Sodium 128 L (137-145) mmol/L Chloride 95 L (98-107) mmol/L Carbon Dioxide 31 H (22-30) mmol/L BUN 8 L (9-20) mg/dL Creatinine 0.45 L (0.66-1.25) mg/dL Glucose 152 H (74-99) mg/dL Calcium 8.3 L (8.4-10.2) mg/dL Assessment and Plan Plan: 1 Acute hypoxemic respiratory failure secondary to an acute right-sided large pneumothorax. Oxygenation is unchanged. Nevertheless the patient was having difficulties with persistent pneumothorax and subcutaneous emphysema. The Thoravent was not functioning properly and this was removed and the regular chest was inserted. There is persistent air leak. There is a persistent pneumothorax on today's chest x-ray. 2 History of stage VIOLA poorly differentiated non-small cell lung cancer diagnosed in June 2020 via navigational bronchoscopy. The patient has qu estionable splenic metastasis. He had undergone 4 cycles of carbo/Alimta and currently receiving Keytruda. He had also undergone consolidative radiation to the large right lung mass due to pain from chest wall invasion and minimum distant disease. He did have progression of the large lesion of the spleen which was not amenable to SBRT. 3 Recent hospitalization for right lower lobe pneumonia and bacteremia with fever secondary to pseudomonas aeruginosa and discharged on 07/03/2021 4 COPD 5 history of smoking. 6 Acute on top of chronic hypoxic respiratory failure. The patient is on O2 at 2 L at home and the patient is currently on 4 L 7 subcutaneous emphysema involving the anterior abdominal wall in the right lateral chest area. Plan: Monitor the chest tube Monitor for air leak. Repeat a chest x-ray in the morning Monitor the sodium level is 128 and the patient is currently on normal saline Continue bronchodilators Encouraged use of incentive spirometer Furthermore the patient has received immunotherapy on outpatient basis. Agree on antibiotics which is essentially empiric in nature We'll continue to follow
--- NOTE | 2021-08-02 13:30 | P.PCN ---
Date of Procedure: 08/02/21 Preoperative Diagnosis: Pneumothorax, right Postoperative Diagnosis: Pneumothorax, right Procedure(s) Performed: Chest tube insertion, right Anesthesia: local Surgeon: Erendira Holley Estimated Blood Loss (ml): 0 Pathology: none sent Condition: stable Disposition: same day Operative Findings: A time-out was completed verifying correct patient, procedure, site, positioning, and special equipment if applicable. The patient was positioned appropriately for chest tube placement. The patients right chest was prepped and draped in sterile fashion. 1% Lidocaine was used to anesthetize the surrounding skin area. A 2 cm skin incision was made in the mid-axillary line at the inframammarycrease. Utilizing blunt dissection a subcutaneous tunnel was created cephalad just adjacent to the superior rib. The pleural space was entered bluntly and gush of air was observed. A finger was inserted into the pleural space to check for anatomy and guide tube insertion. A 28 thoracostomy tube was inserted using a Rima clamp and positioned appropriately. The chest tube was sutured securely to the skin and a sterile dressing applied. A pleurevac was attached to the chest tube and a chest x-ray obtained. I personally performed this procedure and I was was present for the entire pr ocedure. Estimated Blood Loss: 0 The patient tolerated the procedure well and there were no complications.
--- NOTE | 2021-08-02 16:51 | P.PN ---
Progress Note - Text Progress Note Date: 08/02/21 Chief Complaint: Cough with sputum History of presenting complaint: This is a very pleasant 56-year-old patient of Dr. Cabello. followed by Dr. Saleem of the trades helper, Dr. Daniel the oncologist and Dr. Floyd Medina from radiation oncology. Diagnosis of with lung cancer. Has only had radiation treatment and chemotherapy. Currently getting immunotherapy. For about a week patient been having increasing amount of cough. Bringing up some green yellow and bloody sputum. Appetite has been poor. Bowels are okay. At home uses 3 L of oxygen. Has been having weight loss. Significantly short of breath and some wheezing. Tired rundown. In the ER the patient was found to have a large sided pneumothorax. 13-Kazakh Thora-vent was placed by ER physician. Repeat chest x-ray showed continued pneumothorax. Patient is put on suction for about an hour and subsequent x-ray showed improvement. This morning patient still short of breath but slightly better. Tired. Continues to have his chronic low back pain which is significant July 31: Patient has some pneumothorax on the right side. Some air leak. Subcutaneous emphysema. Given his immunosuppressed state steroids discontinued by pulmonary. Patient's breathing a bit better today. Congested cough. Eating some. Tired. Short of breath. IV cefepime August 01: Dr. Holley detected Thora-vent and flushed the catheter./The tubing. Tubing was replaced. Congested cough continues. Oral intake fair. Diet. 4 L nasal cannula. Propped up in bed. August 02: Because of persistent pneumothorax and increasing subcu to [address] Holley discontinued the Thora-vent and placed a right-sided chest tube. Oral intake fair. On 4 L nasal cannula. Review of systems: Was done for constitutional, cardiovascular, GI, pulmonary. relevant finding as above Active Medications Acetaminophen (Acetaminophen Tab 325 Mg Tab) 650 mg PO Q6HR PRN PRN Reason: Mild Pain or Fever > 100.5 Albuterol/Ipratropium (Ipratropium-Albuterol 3 Ml Neb) 3 ml INHALATION RT-Q4H [facility] Last Admin: 08/02/21 15:43 Dose: 3 ml Documented by: Alprazolam (Alprazolam 0.25 Mg Tab) 0.25 mg PO TID PRN PRN Reason: Anxiety Last Admin: 08/01/21 23:07 Dose: 0.25 mg Documented by: Budesonide/Formoterol Fumarate (Symbicort 80-4.5 Mcg Inhaler) 2 puff INHALATION RT-BID [facility] Last Admin: 08/02/21 07:44 Dose: 2 puff Documented by: Cholestyramine Resin (Cholestyramine (With Sugar) 4 Gm Packet) 4 gm PO DAILY PRN PRN Reason: Diarrhea Fentanyl (Fentanyl 100mcg/Hr Patch) 1 patch TRANSDERM Q72H [facility]; Protocol Last Admin: 08/01/21 23:07 Dose: 1 patch Documented by: Folic Acid (Folic Acid 1 Mg Tab) 1 mg PO DAILY@1200 [facility] Last Admin: 08/02/21 12:20 Dose: 1 mg Documented by: Gabapentin (Gabapentin 300 Mg Cap) 300 mg PO [facility] Last Admin: 08/01/21 20:54 Dose: 300 mg Documented by: Guaifenesin (Guaifenesin 600 Mg Tablet.Er) 600 mg PO Q12HR [facility] Last Admin: 08/02/21 08:18 Dose: 600 mg Documented by: Cefepime HCl 2 gm/ Sodium (Chloride) 100 mls @ 25 mls/hr IVPB Q8H [facility] Last Admin: 08/02/21 12:19 Dose: 25 mls/hr Documented by: Sodium Chloride (Saline 0.9%) 1,000 mls @ 75 mls/hr IV .[id number] [facility] Last Admin: 08/02/21 12:24 Dose: 75 mls/hr Documented by: Ketorolac Tromethamine (Ketorolac 30 Mg/Ml 1 Ml Vial) 15 mg IVP Q6HR [facility] Stop: 08/07/21 12:01 Last Admin: 08/02/21 12:19 Dose: 15 mg Documented by: Magnesium Oxide (Magnesium Oxide 400 Mg Tab) 400 mg PO [facility] Last Admin: 08/01/21 20:54 Dose: 400 mg Documented by: Melatonin (Melatonin 3 Mg Tablet) 3 mg PO HS PRN PRN Reason: Insomnia Metoclopramide HCl (Metoclopramide 5 Mg Tab) 5 mg PO TID PRN PRN Reason: Nausea Multivitamins (Multivitamins, Thera 1 Each Tab) 1 each PO DAILY@1200 [facility] Last Admin: 08/02/21 12:20 Dose: 1 each Documented by: Naloxone HCl (Naloxone 0.4 Mg/Ml 1 Ml Vial) 0.2 mg IV Q2M PRN PRN Reason: Opioid Reversal Ondansetron HCl (Ondansetron Odt 4 Mg Tab) 4 mg PO Q6H PRN PRN Reason: Nausea And Vomiting Last Admin: 08/01/21 21:04 Dose: 4 mg Documented by: Oxycodone HCl (Oxycodone Hcl 5 Mg Tab) 10 mg PO Q4H PRN PRN Reason: Pain Last Admin: 08/01/21 20:58 Dose: 10 mg Documented by: Pantoprazole Sodium (Pantoprazole 40 Mg Tablet) 40 mg PO DAILY [facility] Last Admin: 08/02/21 08:18 Dose: 40 mg Documented by: Paroxetine HCl (Paroxetine 20 Mg Tab) 20 mg PO HS [facility] Last Admin: 08/01/21 20:54 Dose: 20 mg Documented by: Polyethylene Glycol (Polyethylene Glycol 3350 17 Gm Powd.Pack) 17 gm PO DAILY PRN PRN Reason: Constipation Senna/Docusate Sodium (Sennosides-Docusate Sodium 1 Each Tab) 2 each PO BID [facility] Last Admin: 08/02/21 08:18 Dose: 2 each Documented by: Thiamine HCl (Thiamine 100 Mg Tab) 100 mg PO DAILY@1200 [facility] Last Admin: 08/02/21 12:20 Dose: 100 mg Documented by: Past medical history to include: Lung cancer, COPD, GERD, Social history: Patient smoked a pack a day for about 37 years, stopped around 2018. 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 Lives with daughter. No alcohol. Family history: Lung cancer Physical examination: VITAL SIGNS: 97.9, 100, 20, 104/65, 94% on 4 L GENERAL: Propped up in bed, awake, some short of breath. [ Loss of muscle mass and subcutaneous fat]. Thora-vent anterior right chest wall EYES: Pupils equal. Conjunctiva pale HEENT: External appearance of nose and ears normal, oral cavity grossly normal. NECK: JVD not raised; masses not palpable. HEART: First and second heart sounds are normal; no edema. LUNGS: Respiratory rate increased diminished breath sounds prolonged expiration. Thora-vent removed. Right-sided chest tube. Subcutaneous emphysema. ABDOMEN: Soft, nontender, liver spleen not palpable, no masses palpable. PSYCH: Alert and oriented x3; mood and affect anxious. MUSCULOSKELETAL:No Clubbing/cyanosis;muscles-grossly intact. Evidence of OA INVESTIGATIONS, reviewed in the clinical context: August 02: White count 9.7 hemoglobin 10.7 sodium 128 potassium 3.6 creatinine 0.45 August 01: White count 7.60 globin 10.2 albumin 2.9 Chest x-ray film personally reviewed by me [July 31]: Infiltrate. Some right-sided pneumothorax White count 8.3 hemoglobin 11.2 platelets 399 sodium 131 potassium 4.1 bicarb 32 BUN 14 creatinine 0.5 to EKG tracing personally reviewed by me-normal sinus rhythm. P pulmonale. T wave changes. Admission labs: Sodium 1:30 albumin 2.9 white count 13.4 hemoglobin 11 Chest x-ray film personally reviewed by [id number] pneumothorax. Right upper lobe mass Assessment and plan: -Right-sided pneumothorax, treated with Thora-vent in the ER. Worsening Thora-vent discontinued. Chest tube placed today on August 02.. -acute COPD exacerbation in a previous smoker.: Slow to respond DuoNeb. Symbicort -Acute hypoxic respiratory failure from pneumothorax and pneumonia: Slow to respond 4 L nasal cannula -Chronic hypoxic respiratory failure from underlying COPD 2-3 L of oxygen at home -Hyponatremia from decreased oral intake: Slow to respond Encourage oral intake -Suspect underlying pneumonia with gram-negative organism Cefepime 2 g every 8 -Lung cancer with metastatic disease status post chemotherapy and radiation treatment. Currently on immunotherapy. Consult oncology -Anxiety not otherwise specified Paxil 20 mg daily at bedtime -Anorexia secondary to underlying malignancy Encourage oral intake -Severe protein calorie malnutrition from decreased oral intake from underlying malignancy Ensure. Dietitian. -GERD Protonix -Chronic Back pain from malignancy Duragesic patch 100 g, oxycodone 10 mg every 4 when necessary -Full code IV cefepime. DuoNeb. Thora-vent discontinued right-sided chest tube placed.. Subcutaneous emphysema. Other medications to continue.
[2021-08-02] MEDS: GABAPENTIN 300 MG CAP PO SCH (19:48)
[2021-08-02] MEDS: MAGNESIUM OXIDE 400 MG TAB PO SCH (19:49)
[2021-08-02] MEDS: PARoxetine 20 MG TAB PO SCH (19:49)
[2021-08-02] MEDS: ALPRAZolam 0.25 MG TAB PO PRN (23:08)
[2021-08-03] MEDS: IPRATROPIUM-ALBUTEROL 3 ML NEB INHALATION SCH ×6 (05:07→23:39)
[2021-08-03 05:18] LABS: Glucose,Whole Blood 118 mg/dL (75-99)
[2021-08-03] MEDS ORDERED: FUROSEMIDE 10 MG/ML 4 ML VIAL ONE (05:18)
[2021-08-03] MEDS ORDERED: FUROSEMIDE 10 MG/ML 4 ML VIAL IV STA (05:18)
[2021-08-03] MEDS ORDERED: LORazepam 2 MG/ML INJ IV STA (05:19)
[2021-08-03] MEDS ORDERED: LORazepam 2 MG/ML INJ ONE (05:21)
[2021-08-03] MEDS: KETOROLAC 30 MG/ML 1 ML VIAL IVP SCH ×3 (05:39→18:33)
[2021-08-03] MEDS: CEFEPIME 2 GM in SODIUM CHLORIDE 0.9% 100 ML IVPB SCH ×3 (05:39→20:12)
--- NOTE | 2021-08-03 06:05 | XR ---
EXAMINATION TYPE: XR chest 1V portable DATE OF EXAM: 08/03/2021 CLINICAL HISTORY: Difficulty breathing progress study. TECHNIQUE: Single AP portable upright view of the chest is obtained. COMPARISON: Chest x-ray from one day earlier and older studies. FINDINGS: Stable right basilar chest tube. Background chronic emphysematous change redemonstrated. C ardiac silhouette size stable and within normal limits. Chronic right-sided volume loss redemonstrate d. Persistent overlying subcutaneous emphysema. Small to tiny right apical lobulated pneumothorax sli ghtly improved from prior now estimated 5-10%. Increased multifocal opacities in the right lung marisol in present. Osseous structures remain intact. Chronic right hilar masslike opacity. There is right mi dlung thin-walled cyst or cystic lesion is less well seen. Left lung remains clear. IMPRESSION: Right-sided chest tube with tiny right apical pneumothorax estimated at 5-10% slightly im proved from one day earlier. Other findings stable.
[2021-08-03 07:41] LABS: Glucose,Whole Blood 96 mg/dL (75-99)
--- NOTE | 2021-08-03 08:00 | XR ---
EXAMINATION TYPE: XR chest 1V portable DATE OF EXAM: 08/03/2021 CLINICAL HISTORY: Difficulty breathing progress study. TECHNIQUE: Single AP portable upright view of the chest is obtained. COMPARISON: Chest x-ray from earlier today and older studies FINDINGS: Stable right basilar chest tube. Background chronic emphysematous change redemonstrated. C ardiac silhouette size stable and within normal limits. Chronic right-sided volume loss redemonstrate d. Persistent overlying subcutaneous emphysema. Small right apical lobulated pneumothorax increased i n size now estimated 15-20%. Increased multifocal opacities in the right lung remain present. Osseous structures remain intact. Chronic right hilar masslike opacity. There is right midlung thin-walled c yst or cystic lesion redemonstrated. Left lung remains clear. Pneumoperitoneum is felt present better seen on current study. IMPRESSION: Right-sided chest tube with small right apical pneumothorax estimated at 15-20% slightly worsened from earlier today.
[2021-08-03 08:17] LABS: ABG Base Excess 6.8 mmol/L; ABG HCO3 33 mmol/L (21-25); ABG Oxygen Saturation 98.5 % (94-97); ABG PCO2 67 mmHg (35-45); ABG PO2 123 mmHg (83-108); ABG TCO2 35 mmol/L (19-24); Allen Test Performed? Yes
[2021-08-03] MEDS ORDERED: NOREPINEPHRIN 4 MG-0.9% NS PMX 4 MG/250 ML ML IV ONE (08:24)
[2021-08-03] MEDS ORDERED: propofoL 100 ML IV ONE (08:24)
[2021-08-03] MEDS ORDERED: CISATRACURIUM 2 MG/ML 5 ML VIAL IV ONE (08:26)
[2021-08-03 09:02] LABS: Basophils % (A) 0 %; Eosinophils % (A) 0 %; HCT 35.5 % (39.0-53.0); HGB 10.9 gm/dL (13.0-17.5); Hypochromasia Marked; Lymphocytes # (A) 0.3 k/uL (1.0-4.8); Lymphocytes % (A) 2 %; MCHC 30.7 g/dL (31.0-37.0); MCV 94.5 fL (80.0-100.0); Mean Platelet Volume 7.3; Monocytes # (A) 0.4 k/uL (0-1.0); Monocytes % (A) 3 %; Neutrophils # (A) 13.5 k/uL (1.3-7.7); Neutrophils % (A) 94 %; Platelet Count 344 k/uL (150-450); RBC 3.76 m/uL (4.30-5.90); RDW 15.6 % (11.5-15.5); WBC 14.4 k/uL (3.8-10.6)
[2021-08-03 09:06] LABS: ALT 10 U/L (4-49); AST 23 U/L (17-59); African American GFR (CKD) >90 (>60 ml/min/1.73 sqM); Albumin 2.5 g/dL (3.5-5.0); Alkaline Phosphatase 71 U/L (38-126); Anion Gap 0 mmol/L; Blood Urea Nitrogen 14 mg/dL (9-20); Calcium 8.2 mg/dL (8.4-10.2); Carbon Dioxide 34 mmol/L (22-30); Chloride 97 mmol/L (98-107); Glucose 95 mg/dL (74-99); Magnesium 1.9 mg/dL (1.6-2.3); Non-African American GFR(CKD) >90 (>60 ml/min/1.73 sqM); Phosphorus 3.8 mg/dL (2.5-4.5); Potassium 4.2 mmol/L (3.5-5.1); Sodium 131 mmol/L (137-145); Total Bilirubin 0.5 mg/dL (0.2-1.3); Total Protein 5.5 g/dL (6.3-8.2)
[2021-08-03] MEDS: INSULIN ASPART (NovoLOG) 100 UNIT/ML VIAL SQ SCH ×3 (09:11→18:28)
[2021-08-03] MEDS: SODIUM CHLORIDE 0.9% 1,000 ML IV SCH ×2 (09:11→21:15)
[2021-08-03] MEDS: guaiFENesin 600 MG TABLET.ER PO SCH ×2 (09:12→20:13)
[2021-08-03] MEDS: PANTOPRAZOLE 40 MG TABLET PO SCH (09:12)
[2021-08-03] MEDS: SENNOSIDES-DOCUSATE SODIUM 1 EACH TAB PO SCH ×2 (09:12→20:13)
--- NOTE | 2021-08-03 09:21 | P.PN ---
Subjective Progress Note Date: 08/03/21 This is a very pleasant 56-year-old somewhat cachectic male patient with a known history of severe Gold stage III COPD with an FEV1 value of 40% of predicted maintained on Trelegy, prednisone and DuoNeb inhalations in the outpatient setting, and non-small cell lung cancer, locally invasive at time of diagnosis and probably currently metastatic. His original diagnosis was discovered in June 2020 with an initial lung mass in the suprahilar region with postobstructive pneumonia and biopsy was consistent with poorly differentiated non-small cell lung cancer. He has been following with medical and radiation oncology. He had been on immunotherapy in the form Keytruda. He presented to the emergency room last evening with complaints of shortness of breath and some right-sided chest discomfort. Initial chest x-ray revealed a large right-sided pneumothorax with no evidence of tension. Noted COPD and continued right suprahilar pulmonary mass. A Thoravent chest tube was placed in the emergency room and follow-up chest x-ray reveals near complete reexpansion of the right lung. Continue density of the right perihilar and extending to the right upper lobe. The left lung is clear. He is seen today in the emergency room. He is currently sitting up in a stretcher. Awake and alert in no acute distress. Breathing easier today compared to yesterday. Still some ongoing right-sided chest discomfort. He is maintaining good O2 saturations in the mid to upper 90s on 3 L/m per nasal cannula. White count 8.3. Hemoglobin 11.2. Sodium 131. Potassium 4.1. Creatinine 0.57. Troponin negative 1. Yusuf virus by PCR not detected. He's been initiated on Symbicort, DuoNeb inhalations and medication for pain. On today's evaluation of 07/31/2021 the patient is being seen for a follow-up. He is still having some discomfort across the right chest area where the pneumothoraxes. The patient's chest x-ray from today shows a persistent pneumothorax around 10% and the right lung which is somewhat loculated in the right upper lobe peripherally. There is also worsening of the subcutaneous emphysema along the right chest area and the neck area. The Thoravent is in a good location and she is showing ongoing air leak and the Pleur-evac. Hemodynamically stable. He denies having any specific complaints for now. The total amount of fluid output from the Thoravent is in order of 50 mL. The patient has a white cell count of 8.3 with a hemoglobin of 11.2. Is a 40 with a creatinine of 0.5 and a sodium level of 131. He does have COPD. He is on bronchodilators. He was also started on empiric antibiotic coverage by the medical team. He was started on steroids which I prefer not to because of his underlying pneumothorax and previous history of immunotherapy intake. Noted the chest x-ray also showed a persistent right upper lobe and lower lobe opacity/infiltrate probably related to underlying malignancy. 08/01/2021, the chest x-ray from today shows volume of the right lung compared to the left and that is small right apical pneumothorax. Nevertheless, there was no evidence of any air leak. There is still some persistent subcutaneous emphysema in the neck and the chest area. Check the Thoravent. Flushed the catheter. Flushed the tubing. The tubing was applied and was replaced. Currently the patient is doing well. He still having a congested cough. He sti ll broken spastic and somewhat wheezy. Upper from the chest was a minimal in terms of fluid into the order of 50-60 mL. The patient is otherwise doing well. Patient is hemodynamically stable. No altered mentation. No significant cough or sputum production. Sodium is at 1:30 with a potassium level of 3.5, creatinine is 0.4. Coronary 19 testing has been negative. No other significant events overnight. He is using incentive spirometer. 08/02/2021, clinically stable. Nevertheless, the Thoravent is not functioning appropriately as there is no ongoing air leak despite the fact that the patient was developing worsening subcutaneous emphysema and persistent pneumothorax on today's chest x-ray was also seen. Based on that, I made the decision to remove the Thoravent then I put a 28-Nepalese chest tube in the right hemithorax. The chest tube is functioning there is persistent air leak at this point in time. The follow-up chest x-ray still showing a right apical pneumothorax along with volume loss in the right upper lobe. Otherwise, the patient has no specific complaints. Resting comfortably in bed. He has developed some subcutaneous emphysema over the chest and abdominal wall. Using incentive spirometer. His white cell count of 9.7 with a hemoglobin of 10.7. Sodium is at 125, BUN is at 8 with a creatinine of 0.4. He is on normal saline at rate of 75 mL an hour. He is also on IV cefepime. 08/03/2021, the patient is currently in the intensive care unit. The patient got transferred early childhood assistant to the ICU as the patient was having increased shortness of breath. He became progressively more short of breath, lethargic, tachypneic, and he was using excessive muscle breathing. He was placed on a BiPAP and by the time he arrived to the ICU, he was quite somnolent and sleepy and lethargic. At that point, I intubated the patient with him on a mechanical ventilator. The right-sided chest tube was still in place. A chest x-ray was done post intubation showed a right apical pneumothorax. This appears emphysema on the right. ET tube is in a good location. Chest tube is in a good location. There is persistent air leak from the chest tube. there is no interval worsening in the size of the right-sided pneumothorax. Post intubation, the patient was kept on a rate of 24, tidal volume of 300, FiO2 of 100% with a PEEP of 5. Current pulse ox is 90%. Blood pressure is stable with a blood pressure of 90/64. Heart rate is 103, sinus. His, comfortable on propofol which is running at 20 mg/kg per minute. The patient also received a dose of Nimbex 10 mg IV push prior to intubation. The triple-lumen cath was also inserted in the left subclavian. He does have some subcutaneous emphysema along the left chest area.Blood work shows a white cell count of 14.4 with a hemoglobin of 10.9 and a platelet count of 344. His sodium level is at 131, BUN is at 40 with a creatinine of 0.5 from this morning. LFTs are within normal limits. Note that during the intubation process and under direct laryngoscopic evaluation, the patient had some purulent material accumulating in his posterior oropharynx and covering his epiglottis and vocal cords. He is currently on IV cefepime. While on a mechanical ventilator, is particularly pressures around 31. Objective - Vital Signs Vital signs: Vital Signs Temp 98.2 F 08/02/21 19:45 Pulse 121 H 08/03/21 05:30 Resp 20 08/03/21 05:30 BP 140/87 08/03/21 05:30 Pulse Ox 99 02/06/22 05:30 Intake & Output 08/02/21 08/03/21 08/03/21 18:59 06:59 18:59 Output Total 797 918 Balance -797 -918 Output: Chest Tube Drainage 122 98 Chest Tube Right Anterior 112 98 Chest Thora-Vent Left Anterior 10 Chest Urine 675 820 Other: Voiding Method Urinal Urinal # Voids 1 - Exam GENERAL EXAM: Alert, pleasant, cachectic 56-year-old male patient, thin and frail and the patient is currently sedated with propofol and the patient is currently intubated on a mechanical ventilator. The patient has a #[address] HEAD: Normocephalic. EYES: Normal reaction of pupils, equal size. NOSE: Clear with pink turbinates. THROAT: No erythema or exudates. NECK: No masses, no JVD. The patient has subcutaneous emphysema in the neck and upper lateral chest area. CHEST: No chest wall deformity. The patient is a 28-Nepalese right-sided chest tube with persistent air leak and the Pleur-evac. There is also evidence of sub cutaneous emphysema over the right anterior chest area lateral chest area and anterior abdominal wall. There is evidence of air leak and the chest tube. There is also evidence of subcutaneous emphysema along the right lateral and anterior chest area. LUNGS: Equal air entry with no Resume more sedation please crackles, wheeze, rhonchi or dullness. Diminished CVS: S1 and S2 normal with no audible murmur, regular rhythm. ABDOMEN: No hepatosplenomegaly, normal bowel sounds, no guarding or rigidity. SPINE: No scoliosis or deformity SKIN: No rashes CENTRAL NERVOUS SYSTEM: No focal deficits, tone is normal in all 4 extremities.The patient is sedated for now. EXTREMITIES: There is no peripheral edema. No clubbing, no cyanosis. Peripheral pulses are intact. - Labs CBC & Chem 7: 08/03/21 08:19 08/03/21 08:19 Labs: Abnormal Lab Results - Last 24 Hours (Table) 08/02/21 08/03/21 08/03/21 Range/Units 08:32 05:16 08:15 WBC (3.8-10.6) k/uL RBC (4.30-5.90) m/uL Hgb (13.0-17.5) gm/dL Hct (39.0-53.0) % MCHC (31.0-37.0) g/dL RDW (11.5-15.5) % Neutrophils # (1.3-7.7) k/uL Lymphocytes # (1.0-4.8) k/uL ABG pH 7.30 L (7.35-7.45) ABG pCO2 67 H (35-45) mmHg ABG pO2 123 H (83-108) mmHg ABG HCO3 33 H (21-25) mmol/L ABG Total CO2 35 H (19-24) mmol/L ABG O2 Saturation 98.5 H (94-97) % Sodium 128 L (137-145) mmol/L Chloride 95 L (98-107) mmol/L Carbon Dioxide 31 H (22-30) mmol/L BUN 8 L (9-20) mg/dL Creatinine 0.45 L (0.66-1.25) mg/dL Glucose 152 H (74-99) mg/dL POC Glucose (mg/dL) 118 H (75-99) mg/dL Calcium 8.3 L (8.4-10.2) mg/dL Total Protein (6.3-8.2) g/dL Albumin (3.5-5.0) g/dL 08/03/21 08/03/21 Range/Units 08:19 08:19 WBC 14.4 H (3.8-10.6) k/uL RBC 3.76 L (4.30-5.90) m/uL Hgb 10.9 L (13.0-17.5) gm/dL Hct 35.5 L (39.0-53.0) % MCHC 30.7 L (31.0-37.0) g/dL RDW 15.6 H (11.5-15.5) % Neutrophils # 13.5 H (1.3-7.7) k/uL Lymphocytes # 0.3 L (1.0-4.8) k/uL ABG pH (7.35-7.45) ABG pCO2 (35-45) mmHg ABG pO2 (83-108) mmHg ABG HCO3 (21-25) mmol/L ABG Total CO2 (19-24) mmol/L ABG O2 Saturation (94-97) % Sodium 131 L (137-145) mmol/L Chloride 97 L (98-107) mmol/L Carbon Dioxide 34 H (22-30) mmol/L BUN (9-20) mg/dL Creatinine 0.51 L (0.66-1.25) mg/dL Glucose (74-99) mg/dL POC Glucose (mg/dL) (75-99) mg/dL Calcium 8.2 L (8.4-10.2) mg/dL Total Protein 5.5 L (6.3-8.2) g/dL Albumin 2.5 L (3.5-5.0) g/dL Assessment and Plan Plan: 1 Acute hypoxemic respiratory failure , multifactorial as the patient has COPD, lung cancer, and a acute right-sided large pneumothorax. The patient was quite stable post chest tube insertion. Nevertheless, over the past 12 hours the patient's respiratory status decompensated. He became more bronchospastic and wheezy. Repeat chest x-ray from this morning postintubation shows a small loculated right apical pneumothorax and a chest tube in place. There is concern for aspiration pneumonia as the patient had purulent respiratory secretions and his posterior oropharynx at time of the intubation. Postintubation chest x-ray shows a persistent right apical pneumothorax. There is also appearance emphysema along the right lung/chest wall area. Chest tube is in a good location. ET tube is in a good location. Blood gases are to follow. The patient will be kept sedated for now. 2 History of stage VIOLA poorly differentiated non-small cell lung cancer diagnosed in June 2020 via navigational bronchoscopy. The patient has questionable splenic metastasis. He had undergone 4 cycles of carbo/Alimta and currently receiving Keytruda. He had also undergone consolidative radiation to the large right lung mass due to pain from chest wall invasion and minimum distant disease. He did have progression of the large lesion of the spleen which was not amenable to SBRT. 3 Recent hospitalization for right lower lobe pneumonia and bacteremia with fever secondary to pseudomonas aeruginosa and discharged on 07/03/2021 4 COPD 5 history of smoking. 6 Acute on top of chronic hypoxic respiratory failure. The patient is on O2 at 2 L at home and the patient is currently on 4 L 7 subcutaneous emphysema involving the anterior abdominal wall in the right lateral chest area. Plan: Patient is currently intubated on a mechanical ventilator. Ventilator settings were set and a chest x-ray was reviewed and a blood gas will be done Triple lumen catheter was inserted Arterial line was inserted Continue the patient IV cefepime 2 g every 12 hours Obtain sputum Gram stain and culture IV Solu-Medrol 60 mg every 6 hours IV fluids at the rate of 75 mL an hour normal saline Inserted OG Initiate enteral feeding for nutritional support Lovenox for DVT prophylaxis IV Protonix Daily chest x-rays We'll continue to follow and make further recommendations based on his progress. Critically care evaluation, done more than 30 minutes. Time with Patient: Greater than 30
--- NOTE | 2021-08-03 09:23 | P.PCN ---
Date of Procedure: 08/03/21 Preoperative Diagnosis: COPD exacerbation, pneumonia, pneumothorax, acute hypoxic respiratory failure Postoperative Diagnosis: Same Procedure(s) Performed: Intubation, central line insertion, arterial line insertion Surgeon: Erendira Holley Estimated Blood Loss (ml): 0 Pathology: none sent Condition: critical Disposition: ICU Operative Findings: Indication: Respiratory compromise. A time-out was completed verifying correct patient, procedure, site, positioning, and implant(s) or special equipment if applicable. The patient was positioned appropriately and a #8 endotracheal tube was placed under direct laryngoscopy. The tube was anchored at 22 cm at the teeth. Correct placement was confirmed by presence of bilateral breath sounds without air sounds in the abdomen on auscultation. An end-tidal CO2 monitor was also used to confirm tracheal placement of the ET tube. A chest x-ray was ordered to assess for pneumothorax and verify endotracheal tube placement. The patient tolerated the procedure well and there were no complications. Indication: Hemodynamic monitoring/Intravenous access. A time-out was completed verifying correct patient, procedure, site, positioning, and implant(s) or special equipment if applicable. The patient was placed in a dependent position appropriate for central line placement based on the vein to be cannulated. The patient s right chest was prepped and draped in sterile fashion. 1% Lidocaine was used to anesthetize the surrounding skin area. A triple lumen 9F Cordis catheter was introduced into the subclavian vein r vein using Seldinger technique. The catheter was threaded smoothly over the guide wire and appropriate blood return was obtained. Each lumen of the catheter was evacuated of air and flushed with sterile saline. The catheter was then sutured in place to the skin and a sterile dressing applied. Perfusion to the extremity distal to the point of catheter insertion was checked and found to be adequate. The patient tolerated the procedure well and there were no complications. Indication: Hemodynamic monitoring. A time-out was completed verifying correct patient, procedure, site, positioning, and implant(s) or special equipment if applicable. Jason s test was performed to ensure adequate perfusion. The patients right wrist was prepped and draped in sterile fashion. 1% Lidocaine was used to anesthetize the area. An 18G Arrow arterial line was introduced into the radial artery. The catheter was threaded over the guide wire and the needle was removed with appropriate pulsatile blood return. Blood loss was minimal. The catheter was then sutured in place to the skin and a sterile dressing applied. Perfusion to the extremity distal to the point of catheter insertion was checked and found to be adequate. The patient tolerated the procedure well and there were no complications.
--- NOTE | 2021-08-03 09:24 | XR ---
EXAMINATION TYPE: XR chest 1V portable DATE OF EXAM: 08/03/2021 CLINICAL HISTORY: Difficulty breathing had to be intubated. Central line placement. TECHNIQUE: Single AP portable supine view of the chest is obtained. COMPARISON: Chest x-ray from earlier today FINDINGS: New Endotracheal tube terminates at aortic knob level approximately 2 to 3 cm above [place]. New right subclavian central venous catheter terminates in SVC. Stable right basilar chest tube. Background chronic emphysematous change redemonstrated. Cardiac nicole houette size stable and within normal limits. Chronic right-sided volume loss redemonstrated. Persist ent overlying subcutaneous emphysema. Small right apical pneumothorax less well seen possibly due to change in position or improvement. Increased multifocal opacities in the right lung remain present. O sseous structures remain intact. Chronic right hilar masslike opacity. There is right midlung thin-wa lled cyst or cystic lesion redemonstrated. Left lung remains clear. Pneumoperitoneum is redemonstrate d. IMPRESSION: Satisfactory positioning of endotracheal tube. New right-sided central venous catheter. R ight apical pneumothorax improved but this may be related to change in position. Persistent right bas ilar chest tube. Other findings not changed.
[2021-08-03 09:28] LABS: INR 1.1 (<1.2); Partial Thromboplastin Time 25.5 sec (22.0-30.0); Prothrombin Time 11.9 sec (9.0-12.0)
[2021-08-03 09:29] LABS: ABG Base Excess 5.4 mmol/L; ABG HCO3 32 mmol/L (21-25); ABG PCO2 67 mmHg (35-45); ABG PH 7.29 (7.35-7.45); ABG PO2 244 mmHg (83-108); ABG TCO2 34 mmol/L (19-24); Allen Test Performed? Yes
[2021-08-03] MEDS: NOREPINEPHRINE 8 MG in SODIUM CHLORIDE 0.9% 250 ML IV SCH (10:14)
[2021-08-03] MEDS ORDERED: SODIUM CHLORIDE 0.9% 1,000 ML IV ONE ×2 (10:44→15:20)
[2021-08-03] MEDS: methylPREDNISolone SOD SUCCI 40 MG/ML 1 ML VIAL IV SCH ×2 (12:48→18:34)
[2021-08-03] MEDS: THIAMINE 100 MG TAB PO SCH (12:51)
[2021-08-03] MEDS: FOLIC ACID 1 MG TAB PO SCH (12:51)
[2021-08-03] MEDS: MULTIVITAMINS, THERA 1 EACH TAB PO SCH (12:51)
[2021-08-03 13:18] LABS: Glucose,Whole Blood 104 mg/dL (75-99)
--- NOTE | 2021-08-03 17:50 | P.PN ---
Progress Note - Text Progress Note Date: 08/03/21 Chief Complaint: Cough with sputum History of presenting complaint: This is a very pleasant 56-year-old patient of Dr. Cabello. followed by Dr. Saleem of the governor assembler, Dr. Daniel the oncologist and Dr. Flyod Medina from radiation oncology. Diagnosis of with lung cancer. Has only had radiation treatment and chemotherapy. Currently getting immunotherapy. For about a week patient been having increasing amount of cough. Bringing up some green yellow and bloody sputum. Appetite has been poor. Bowels are okay. At home uses 3 L of oxygen. Has been having weight loss. Significantly short of breath and some wheezing. Tired rundown. In the ER the patient was found to have a large sided pneumothorax. 13-[place] Thora-vent was placed by ER physician. Repeat chest x-ray showed continued pneumothorax. Patient is put on suction for about an hour and subsequent x-ray showed improvement. This morning patient still short of breath but slightly better. Tired. Continues to have his chronic low back pain which is significant July 31: Patient has some pneumothorax on the right side. Some air leak. Subcutaneous emphysema. Given his immunosuppressed state steroids discontinued by pulmonary. Patient's breathing a bit better today. Congested cough. Eating some. Tired. Short of breath. IV cefepime August 01: Dr. Holley detected Thora-vent and flushed the catheter./The tubing. Tubing was replaced. Congested cough continues. Oral intake fair. Diet. 4 L nasal cannula. Propped up in bed. August 02: Because of persistent pneumothorax and increasing subcu to [address] Holley discontinued the Thora-vent and placed a right-sided chest tube. Oral intake fair. On 4 L nasal cannula. August 03: ICU: This morning patient became more short of breath. Brought to the ICU. Intubated. Drips include norepinephrine, propofol. Patient sedated. Ventilator: FiO2 60% and a PEEP of 5. Sinus rhythm. Discussed with daughter the bedside. Active Medications Acetaminophen (Acetaminophen Tab 325 Mg Tab) 650 mg PO Q6HR PRN PRN Reason: Mild Pain or Fever > 100.5 Albuterol/Ipratropium (Ipratropium-Albuterol 3 Ml Neb) 3 ml INHALATION RT-Q4H [facility] Last Admin: 08/03/21 16:12 Dose: Not Given Documented by: Alprazolam (Alprazolam 0.25 Mg Tab) 0.25 mg PO TID PRN PRN Reason: Anxiety Last Admin: 08/02/21 23:08 Dose: 0.25 mg Documented by: Cholestyramine Resin (Cholestyramine (With Sugar) 4 Gm Packet) 4 gm PO DAILY PRN PRN Reason: Diarrhea Enoxaparin Sodium (Enoxaparin 40 Mg/0.4 Ml Syringe) 40 mg SQ DAILY [facility] Fentanyl (Fentanyl 100mcg/Hr Patch) 1 patch TRANSDERM Q72H [facility]; Protocol Last Admin: 08/01/21 23:07 Dose: 1 patch Documented by: Folic Acid (Folic Acid 1 Mg Tab) 1 mg PO DAILY@1200 [facility] Last Admin: 08/03/21 12:51 Dose: 1 mg Documented by: Gabapentin (Gabapentin 300 Mg Cap) 300 mg PO HS [facility] Last Admin: 08/02/21 19:48 Dose: 300 mg Documented by: Guaifenesin (Guaifenesin 600 Mg Tablet.Er) 600 mg PO Q12HR [facility] Last Admin: 08/03/21 09:12 Dose: Not Given Documented by: Cefepime HCl 2 gm/ Sodium (Chloride) 100 mls @ 25 mls/hr IVPB Q8H [facility] Last Admin: 08/03/21 12:34 Dose: 25 mls/hr Documented by: Sodium Chloride (Saline 0.9%) 1,000 mls @ 75 mls/hr IV .[id number] [facility] Last Admin: 08/03/21 09:11 Dose: 75 mls/hr Documented by: Norepinephrine Bitartrate 8 mg (/ Sodium Chloride) 258 mls @ 4.388 mls/hr IV .Q24H [facility]; Protocol Last Titration: 08/03/21 17:41 Dose: 0.16 mcg/kg/min, 14.043 mls/hr Documented by: Propofol 1,000 mg/ IV Solution 100 mls @ 0 mls/hr IV .Q0M [facility]; Protocol Last Admin: 08/03/21 13:40 Dose: 50 mcg/kg/min, 13.608 mls/hr Documented by: Insulin Aspart (Insulin Aspart (Novolog) 100 Unit/Ml Vial) 0 unit SQ Q6H [facility]; Protocol Ketorolac Tromethamine (Ketorolac 30 Mg/Ml 1 Ml Vial) 15 mg IVP Q6HR [facility] Stop: 08/07/21 12:01 Last Admin: 08/03/21 14:42 Dose: Not Given Documented by: Magnesium Oxide (Magnesium Oxide 400 Mg Tab) 400 mg PO [facility] Last Admin: 08/02/21 19:49 Dose: 400 mg Documented by: Melatonin (Melatonin 3 Mg Tablet) 3 mg PO HS PRN PRN Reason: Insomnia Methylprednisolone Sodium Succinate (Methylprednisolone Sod Succi 40 Mg/Ml 1 Ml Vial) 40 mg IV Q6HR [facility] Last Admin: 08/03/21 12:48 Dose: 40 mg Documented by: Metoclopramide HCl (Metoclopramide 5 Mg Tab) 5 mg PO TID PRN PRN Reason: Nausea Multivitamins (Multivitamins, Thera 1 Each Tab) 1 each PO DAILY@1200 [facility] Last Admin: 08/03/21 12:51 Dose: 1 each Documented by: Naloxone HCl (Naloxone 0.4 Mg/Ml 1 Ml Vial) 0.2 mg IV Q2M PRN PRN Reason: Opioid Reversal Ondansetron HCl (Ondansetron Odt 4 Mg Tab) 4 mg PO Q6H PRN PRN Reason: Nausea And Vomiting Last Admin: 08/01/21 21:04 Dose: 4 mg Documented by: Oxycodone HCl (Oxycodone Hcl 5 Mg Tab) 10 mg PO Q4H PRN PRN Reason: Pain Last Admin: 08/01/21 20:58 Dose: 10 mg Documented by: Pantoprazole Sodium (Pantoprazole 40 Mg Tablet) 40 mg PO DAILY [facility] Last Admin: 08/03/21 09:12 Dose: Not Given Documented by: Paroxetine HCl (Paroxetine 20 Mg Tab) 20 mg PO [facility] Last Admin: 08/02/21 19:49 Dose: 20 mg Documented by: Polyethylene Glycol (Polyethylene Glycol 3350 17 Gm Powd.Pack) 17 gm PO DAILY PRN PRN Reason: Constipation Senna/Docusate Sodium (Sennosides-Docusate Sodium 1 Each Tab) 2 each PO BID [facility] Last Admin: 08/03/21 09:12 Dose: Not Given Documented by: Thiamine HCl (Thiamine 100 Mg Tab) 100 mg PO DAILY@1200 [facility] Last Admin: 08/03/21 12:51 Dose: 100 mg Documented by: Past medical history to include: Lung cancer, COPD, GERD, Social history: Patient smoked a pack a day for about 37 years, stopped around 2018. 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 Lives with daughter. No alcohol. Family history: Lung cancer Physical examination: VITAL SIGNS: 97.1, 71, 26, 104/56, 99% on the ventilator GENERAL: Intubated. Sedated.. [ Loss of muscle mass and subcutaneous fat]. Right-sided chest tube. EYES: Pupils equal. Conjunctiva pale HEENT: External appearance of nose and ears normal, oral cavity grossly normal. NECK: JVD not raised; masses not palpable. HEART: First and second heart sounds are normal; no edema. LUNGS: Respiratory rate increased diminished breath sounds prolonged expiration. Right-sided chest tube. Subcutaneous emphysema. ABDOMEN: Soft, nontender, liver spleen not palpable, no masses palpable. PSYCH: Patient sedated MUSCULOSKELETAL:No Clubbing/cyanosis;muscles-grossly intact. Evidence of OA INVESTIGATIONS, reviewed in the clinical context: August 03: White count 14.4 hemoglobin 10.9 platelets 344 ABGs noted. Sodium 131 potassium 4.2 creatinine 0.5. Chest x-ray film: Pneumothorax minimal. Chest tube. Subcutaneous emphysema. Obesity right upper lobe. August 02: White count 9.7 hemoglobin 10.7 sodium 128 potassium 3.6 creatinine 0.45 August 01: White count 7.60 globin 10.2 albumin 2.9 Chest x-ray film personally reviewed by me [July 31]: Infiltrate. Some right-sided pneumothorax White count 8.3 hemoglobin 11.2 platelets 399 sodium 131 potassium 4.1 bicarb 32 BUN 14 creatinine 0.5 to EKG tracing personally reviewed by me-normal sinus rhythm. P pulmonale. T wave changes. Admission labs: Sodium 1:30 albumin 2.9 white count 13.4 hemoglobin 11 Chest x-ray film personally reviewed by [id number] pneumothorax. Right upper lobe mass Assessment and plan: -Right-sided pneumothorax, treated with Thora-vent in the ER. Chest tube placed on August 02. Miah suction -acute COPD exacerbation in a previous smoker.: Slow to respond DuoNeb. IV Solu-Medrol -Acute hypoxic respiratory failure from pneumothorax and pneumonia: Worsening 4 L nasal cannula. intubated on the ventilator August 03 -Chronic hypoxic respiratory failure from underlying COPD 2-3 L of oxygen at home -Hyponatremia from decreased oral intake: Slow to respond Encourage oral intake -Suspect underlying pneumonia with gram-negative organism Cefepime 2 g every 8 -Lung cancer with metastatic disease status post chemotherapy and radiation treatment. Currently on immunotherapy. Consult oncology -Anxiety not otherwise specified Paxil 20 mg daily at bedtime -Anorexia secondary to underlying malignancy Encourage oral intake -Severe protein calorie malnutrition from decreased oral intake from underlying malignancy Ensure. Dietitian. -GERD Protonix -Chronic Back pain from malignancy Duragesic patch 100 g, oxycodone 10 mg every 4 when necessary -Full code IV cefepime. DuoNeb. right-sided chest tube . Intubated today. ICU. Drips include propofol and norepinephrine. Prognosis guarded. Discussed with the daughter the bedside.
[2021-08-03 18:29] LABS: Glucose,Whole Blood 115 mg/dL (75-99)
[2021-08-03] MEDS: PARoxetine 20 MG TAB PO SCH (20:13)
[2021-08-03] MEDS: GABAPENTIN 300 MG CAP PO SCH (20:13)
[2021-08-03] MEDS: MAGNESIUM OXIDE 400 MG TAB PO SCH (20:13)
[2021-08-03 23:44] LABS: Glucose,Whole Blood 137 mg/dL (75-99)
[2021-08-04] MEDS: KETOROLAC 30 MG/ML 1 ML VIAL IVP SCH ×5 (00:22→23:47)
[2021-08-04] MEDS: SYMBICORT 80-4.5 MCG INHALER INHALATION SCH (00:23)
[2021-08-04] MEDS: methylPREDNISolone SOD SUCCI 40 MG/ML 1 ML VIAL IV SCH ×5 (00:23→23:47)
[2021-08-04] MEDS: INSULIN ASPART (NovoLOG) 100 UNIT/ML VIAL SQ SCH ×5 (00:23→23:47)
[2021-08-04] MEDS: IPRATROPIUM-ALBUTEROL 3 ML NEB INHALATION SCH ×6 (03:32→23:28)
[2021-08-04] MEDS: CEFEPIME 2 GM in SODIUM CHLORIDE 0.9% 100 ML IVPB SCH ×3 (03:43→20:47)
[2021-08-04 05:23] LABS: ABG Base Excess 2.3 mmol/L; ABG HCO3 28 mmol/L (21-25); ABG Oxygen Saturation 98.2 % (94-97); ABG PCO2 49 mmHg (35-45); ABG PH 7.36 (7.35-7.45); ABG PO2 106 mmHg (83-108); ABG TCO2 29 mmol/L (19-24)
[2021-08-04 05:27] LABS: HCT 30.8 % (39.0-53.0); HGB 9.7 gm/dL (13.0-17.5); Hypochromasia Marked; MCH 29.6 pg (25.0-35.0); MCHC 31.5 g/dL (31.0-37.0); MCV 94.1 fL (80.0-100.0); Mean Platelet Volume 7.5; Platelet Count 485 k/uL (150-450); RBC 3.27 m/uL (4.30-5.90); RDW 15.6 % (11.5-15.5); WBC 13.5 k/uL (3.8-10.6)
[2021-08-04 05:33] LABS: Glucose,Whole Blood 140 mg/dL (75-99)
[2021-08-04 05:54] LABS: African American GFR (CKD) >90 (>60 ml/min/1.73 sqM); Anion Gap 6 mmol/L; Blood Urea Nitrogen 20 mg/dL (9-20); Calcium 8.3 mg/dL (8.4-10.2); Carbon Dioxide 26 mmol/L (22-30); Chloride 101 mmol/L (98-107); Glucose 145 mg/dL (74-99); Non-African American GFR(CKD) >90 (>60 ml/min/1.73 sqM); Potassium 4.6 mmol/L (3.5-5.1); Sodium 133 mmol/L (137-145)
[2021-08-04 06:04] LABS: Allen Test Performed? no
--- NOTE | 2021-08-04 08:03 | XR ---
EXAMINATION TYPE: XR chest 1V portable DATE OF EXAM: 08/04/2021 COMPARISON: 08/03/2021 HISTORY: SOB, Follow Up FINDINGS: Indwelling tubes and catheters are unchanged. Right basilar chest tube is unchanged in position. No change in bibasilar opacities. Moderate background of the emphysematous change. Stable appearance of the cardio-mediastinal structures at this time. Pleural effusion unchanged. IMPRESSION: 1. Stable portable chest. Clinical correlation and follow up until resolution is recommended.
[2021-08-04] MEDS: SENNOSIDES-DOCUSATE SODIUM 1 EACH TAB PO SCH ×2 (08:16→21:03)
[2021-08-04] MEDS: ENOXAPARIN 40 MG/0.4 ML SYRINGE SQ SCH (08:17)
[2021-08-04] MEDS: PANTOPRAZOLE 40 MG TABLET PO SCH (08:17)
[2021-08-04] MEDS: guaiFENesin 600 MG TABLET.ER PO SCH ×2 (08:17→20:59)
[2021-08-04] MEDS: NOREPINEPHRINE 8 MG in SODIUM CHLORIDE 0.9% 250 ML IV SCH ×2 (08:47→22:07)
[2021-08-04] MEDS: SODIUM CHLORIDE 0.9% 1,000 ML IV SCH ×2 (08:49→22:11)
[2021-08-04] MEDS ORDERED: LORazepam 2 MG/ML INJ IV STA (11:20)
[2021-08-04] MEDS: FOLIC ACID 1 MG TAB PO SCH (11:45)
[2021-08-04] MEDS: THIAMINE 100 MG TAB PO SCH (11:45)
[2021-08-04] MEDS: MULTIVITAMINS, THERA 1 EACH TAB PO SCH (11:45)
[2021-08-04 12:00] LABS: Glucose,Whole Blood 132 mg/dL (75-99)
--- NOTE | 2021-08-04 14:41 | P.PN ---
Subjective Progress Note Date: 08/04/21 Principal diagnosis: Acute hypoxic respiratory failure, multifactorial 08/03/2021, the patient is currently in the intensive care unit. The patient got transferred residence leasing agent to the ICU as the patient was having increased shortness of breath. He became progressively more short of breath, lethargic, tachypneic, and he was using excessive muscle breathing. He was placed on a BiPAP and by the time he arrived to the ICU, he was quite somnolent and sleepy and lethargic. At that point, I intubated the patient with him on a mechanical ventilator. The right-sided chest tube was still in place. A chest x-ray was done post intubation showed a right apical pneumothorax. This appears emphysema on the right. ET tube is in a good location. Chest tube is in a good location. There is persistent air leak from the chest tube. there is no interval worsening in the size of the right-sided pneumothorax. Post intubation, the patient was kept on a rate of 24, tidal volume of 300, FiO2 of 100% with a PEEP of 5. Current pulse ox is 90%. Blood pressure is stable with a blood pressure of 90/64. Heart rate is 103, sinus. His, comfortable on propofol which is running at 20 mg/kg per minute. The patient also received a dose of Nimbex 10 mg IV push prior to intubation. The triple-lumen cath was also inserted in the left subclavian. He does have some subcutaneous emphysema along the left chest area.Blood work shows a white cell count of 14.4 with a hemoglobin of 10.9 and a platelet count of 344. His sodium level is at 131, BUN is at 40 with a creatinine of 0.5 from this morning. LFTs are within normal limits. Note that during the intubation process and under direct laryngoscopic evaluation, the patient had some purulent material accumulating in his posterior oropharynx and covering his epiglottis and vocal cords. He is currently on IV cefepime. While on a mechanical ventilator, is particularly pressures around 31. Reevaluated today on 08/04/2021, patient remains in the ICU, intubated and mechanically ventilated. His daughter is at bedside. Patient is on assist control rate of 24 tidal volume is 300 FiO2 50% and PEEP of 5. Peak airway pressure is 24.2 pressures 13. Patient's showed a pO2 of 106 pCO2 49 pH of 7.36, hence cut down his FiO2 to 45%, otherwise no changes in his vent settings. Patient is requiring norepinephrine at 0.12, propofol is at 50 IV fluids at KVO. Chest x-ray showed reexpansion of the right lung, significant subcutaneous emphysema is noted. Remains on antibiotics in the form of cefepime. Patient will be placed on pressure support mode of mechanical ventilation and CPAP if tolerated. However I will try to awaken the patient today, and possibly assess weaning parameters and proceed to weaning mode if possible and if tolerated. In the meantime patient has significant subcu emphysema, and I went ahead and plac ed a 14-gauge angiocatheter in the anterior chest wall for decompression of the subcutaneous emphysema. Patient's acute presentation of respiratory failure seems to be related to underlying COPD, large right-sided pneumothorax requiring chest tube placement, and he has a stage IV non-small cell lung cancer. Patient is on immunotherapy. Labs today were reviewed WBC count is 13.5 hemoglobin 9.7 left lites are normal renal profile is normal Objective - Vital Signs Vital signs: Vital Signs Temp 97.1 F L 08/04/21 10:00 Pulse 75 08/04/21 12:00 Resp 34 H 08/04/21 12:00 BP 116/78 08/04/21 12:00 Pulse Ox 89 L 08/04/21 12:00 Intake & Output 08/03/21 08/04/21 08/04/21 18:59 06:59 18:59 Intake Total 3066.369 1131.852 857.503 Output Total 1110 470 220 Balance 1956.369 661.852 637.503 Weight 52 kg 52 kg Intake: IV 750 900 450 Sodium Chloride 0.9% 1, 750 900 450 000 ml @ 75 mls/hr IV . [id number] [facility] Rx#:[id number] Intake, IV Titration 2271.369 231.852 207.503 Amount Cefepime 2 gm In Sodium 100 Chloride 0.9% 100 ml @ 25 mls/hr IVPB Q8H [facility] Rx#: [id number] Norepinephrine 8 mg In 124.195 40.433 107.503 Sodium Chloride 0.9% 250 ml @ 0.05 MCG/KG/MIN 4. 388 mls/hr IV .Q24H [facility] Rx#:[id number] Sodium Chloride 0.9% 1, 2000 000 ml @ 999 mls/hr IV . Q1H1M [facility] Rx#:[id number] propofoL 1,000 mg In 47.174 191.419 100 Empty Bag 1 bag @ Titrate IV .Q0M [facility] Rx#: [id number] Other 45 200 Output: Chest Tube Drainage 150 50 Chest Tube Right Anterior 150 50 Chest Gastric Drainage 300 Urine 660 420 220 Other: Voiding Method Indwelling Catheter Indwelling Catheter Indwelling Catheter ABP, PAP, CO, CI - Last Documented Arterial Blood Pressure 94/55 - Exam GENERAL EXAM: Revealed 56-year-old white male intubated, mechanically ventilated, arousable, but not fully yet. Intermittently agitated.. HEAD: Normocephalic. Atraumatic. HEENT: PERRLA, EOMI, nonicteric, no neck masses, no JVD, subcutaneous emphysema is noted. CHEST: Symmetrical chest expansion, significant subcutaneous emphysema noted in the anterior chest wall area. Crackles at the bases. No rhonchi and no wheez es. Sided chest tube is noted. 14-gauge angiocatheter was placed. CVS: S1 and S2 normal with no audible murmur, regular rhythm. ABDOMEN: Soft nontender no megaly no rebound no guarding. SPINE: No scoliosis or deformity SKIN: No rashes CENTRAL NERVOUS SYSTEM: No focal deficits, tone is normal in all 4 extremities.The patient is sedated for now. EXTREMITIES: There is no peripheral edema. No clubbing, no cyanosis. Peripheral pulses are intact. - Labs CBC & Chem 7: 08/04/21 04:46 08/04/21 04:46 Labs: Abnormal Lab Results - Last 24 Hours (Table) 08/03/21 08/03/21 08/03/21 Range/Units 08:19 18:27 23:42 WBC (3.8-10.6) k/uL RBC (4.30-5.90) m/uL Hgb (13.0-17.5) gm/dL Hct (39.0-53.0) % RDW (11.5-15.5) % Plt Count (150-450) k/uL ABG pCO2 (35-45) mmHg ABG HCO3 (21-25) mmol/L ABG Total CO2 (19-24) mmol/L ABG O2 Saturation (94-97) % Sodium (137-145) mmol/L Creatinine (0.66-1.25) mg/dL Glucose (74-99) mg/dL POC Glucose (mg/dL) 115 H 137 H (75-99) mg/dL Calcium (8.4-10.2) mg/dL Procalcitonin 0.58 H (0.02-0.09) ng/mL 08/04/21 08/04/21 08/04/21 Range/Units 04:46 04:46 05:21 WBC 13.5 H (3.8-10.6) k/uL RBC 3.27 L (4.30-5.90) m/uL Hgb 9.7 L (13.0-17.5) gm/dL Hct 30.8 L (39.0-53.0) % RDW 15.6 H (11.5-15.5) % Plt Count 485 H (150-450) k/uL ABG pCO2 49 H (35-45) mmHg ABG HCO3 28 H (21-25) mmol/L ABG Total CO2 29 H (19-24) mmol/L ABG O2 Saturation 98.2 H (94-97) % Sodium 133 L (137-145) mmol/L Creatinine 0.49 L (0.66-1.25) mg/dL Glucose 145 H (74-99) mg/dL POC Glucose (mg/dL) (75-99) mg/dL Calcium 8.3 L (8.4-10.2) mg/dL Procalcitonin (0.02-0.09) ng/mL 08/04/21 08/04/21 Range/Units 05:31 11:57 WBC (3.8-10.6) k/uL RBC (4.30-5.90) m/uL Hgb (13.0-17.5) gm/dL Hct (39.0-53.0) % RDW (11.5-15.5) % Plt Count (150-450) k/uL ABG pCO2 (35-45) mmHg ABG HCO3 (21-25) mmol/L ABG Total CO2 (19-24) mmol/L ABG O2 Saturation (94-97) % Sodium (137-145) mmol/L Creatinine (0.66-1.25) mg/dL Glucose (74-99) mg/dL POC Glucose (mg/dL) 140 H 132 H (75-99) mg/dL Calcium (8.4-10.2) mg/dL Procalcitonin (0.02-0.09) ng/mL Microbiology - Last 24 Hours (Table) 08/03/21 08:30 Gram Stain - Preliminary Sputum Sputum Culture - Preliminary Gram Neg Bacilli Diane albicans Assessment and Plan Assessment: Acute on chronic hypoxemic respiratory failure , multifactorial as the patient has COPD, lung cancer, and a acute right-sided large pneumothorax. Requiring chest tube placement. Stage IV a poorly differentiated non-small cell lung cancer diagnosed in June of 2020. Recent hospitalization for right lower lobe pneumonia secondary to Pseudomonas discharged on 07/03 Tobacco dependence syndrome. Subcutaneous emphysema involving the right anterior chest wall. Recommendation: Continue ventilatory support. Awaken the patient today and assess for possible weaning trial. Continue norepinephrine and titrate accordingly. Continue antibiotics/cefepime. Obtain sputum cultures. Continue bronchodilators and IV Solu-Medrol. Enteral feeding via orogastric tube. Continue Lovenox for DVT prophylaxis. Continue IV Protonix. Discussed his condition at bedside with his daughter and she is very well aware that he is critically ill, and prognosis is guarded. Critical care time is over 30 minutes. Time with Patient: Greater than 30
--- NOTE | 2021-08-04 15:23 | P.PN ---
Progress Note - Text Progress Note Date: 08/04/21 Chief Complaint: Cough with sputum History of presenting complaint: This is a very pleasant 56-year-old patient of Dr. Cabello. followed by Dr. Saleem of the manager of hospital, Dr. Daniel the oncologist and Dr. Floyd Medina from radiation oncology. Diagnosis of with lung cancer. Has only had radiation treatment and chemotherapy. Currently getting immunotherapy. For about a week patient been having increasing amount of cough. Bringing up some green yellow and bloody sputum. Appetite has been poor. Bowels are okay. At home uses 3 L of oxygen. Has been having weight loss. Significantly short of breath and some wheezing. Tired rundown. In the ER the patient was found to have a large sided pneumothorax. 13-Salvadorean Thora-vent was placed by ER physician. Repeat chest x-ray showed continued pneumothorax. Patient is put on suction for about an hour and subsequent x-ray showed improvement. This morning patient still short of breath but slightly better. Tired. Continues to have his chronic low back pain which is significant July 31: Patient has some pneumothorax on the right side. Some air leak. Subcutaneous emphysema. Given his immunosuppressed state steroids discontinued by pulmonary. Patient's breathing a bit better today. Congested cough. Eating some. Tired. Short of breath. IV cefepime August 01: Dr. Holley detected Thora-vent and flushed the catheter./The tubing. Tubing was replaced. Congested cough continues. Oral intake fair. Diet. 4 L nasal cannula. Propped up in bed. August 02: Because of persistent pneumothorax and increasing subcu to [address] Holley discontinued the Thora-vent and placed a right-sided chest tube. Oral intake fair. On 4 L nasal cannula. August 03: ICU: This morning patient became more short of breath. Brought to the ICU. Intubated. Drips include norepinephrine, propofol. Patient sedated. Ventilator: FiO2 60% and a PEEP of 5. Sinus rhythm. Discussed with daughter the bedside. August 04: ICU. Ventilator: 50/5. Telemetry: Sinus rhythm. Intubated. Sedated. Drips include IV propofol and norepinephrine. Subcutaneous emphysema present. Discussed with daughter the bedside. Active Medications Acetaminophen (Acetaminophen Tab 325 Mg Tab) 650 mg PO Q6HR PRN PRN Reason: Mild Pain or Fever > 100.5 Albuterol/Ipratropium (Ipratropium-Albuterol 3 Ml Neb) 3 ml INHALATION RT-Q4H [facility] Last Admin: 08/04/21 15:17 Dose: 3 ml Documented by: Cholestyramine Resin (Cholestyramine (With Sugar) 4 Gm Packet) 4 gm PO DAILY PRN PRN Reason: Diarrhea Enoxaparin Sodium (Enoxaparin 40 Mg/0.4 Ml Syringe) 40 mg SQ DAILY [facility] Last Admin: 08/04/21 08:17 Dose: 40 mg Documented by: Fentanyl (Fentanyl 100mcg/Hr Patch) 1 patch TRANSDERM Q72H [facility]; Protocol Last Admin: 08/01/21 23:07 Dose: 1 patch Documented by: Folic Acid (Folic Acid 1 Mg Tab) 1 mg PO DAILY@1200 [facility] Last Admin: 08/04/21 11:45 Dose: 1 mg Documented by: Gabapentin (Gabapentin 300 Mg Cap) 300 mg PO HS [facility] Last Admin: 08/03/21 20:13 Dose: 300 mg Documented by: Guaifenesin (Guaifenesin 600 Mg Tablet.Er) 600 mg PO Q12HR [facility] Last Admin: 08/04/21 08:17 Dose: 600 mg Documented by: Hydromorphone HCl (Hydromorphone 1 Mg/Ml 1 Ml Syringe) 1 mg IVP Q4HR PRN PRN Reason: severe Pain Cefepime HCl 2 gm/ Sodium (Chloride) 100 mls @ 25 mls/hr IVPB Q8H [facility] Last Admin: 08/04/21 11:45 Dose: 25 mls/hr Documented by: Sodium Chloride (Saline 0.9%) 1,000 mls @ 75 mls/hr IV .[id number] [facility] Last Admin: 08/04/21 08:49 Dose: 75 mls/hr Documented by: Norepinephrine Bitartrate 8 mg (/ Sodium Chloride) 258 mls @ 4.388 mls/hr IV .Q24H [facility]; Protocol Last Titration: 08/04/21 09:56 Dose: 0.12 mcg/kg/min, 10.532 mls/hr Documented by: Propofol 1,000 mg/ IV Solution 100 mls @ 0 mls/hr IV .Q0M [facility]; Protocol Last Admin: 08/04/21 13:28 Dose: 50 mcg/kg/min, 13.608 mls/hr Documented by: Insulin Aspart (Insulin Aspart (Novolog) 100 Unit/Ml Vial) 0 unit SQ Q6H [facility]; Protocol Last Admin: 08/04/21 12:00 Dose: 1 unit Documented by: Ketorolac Tromethamine (Ketorolac 30 Mg/Ml 1 Ml Vial) 15 mg IVP Q6HR [facility] Stop: 08/07/21 12:01 Last Admin: 08/04/21 11:45 Dose: 15 mg Documented by: Magnesium Oxide (Magnesium Oxide 400 Mg Tab) 400 mg PO HS [facility] Last Admin: 08/03/21 20:13 Dose: 400 mg Documented by: Melatonin (Melatonin 3 Mg Tablet) 3 mg PO HS PRN PRN Reason: Insomnia Methylprednisolone Sodium Succinate (Methylprednisolone Sod Succi 40 Mg/Ml 1 Ml Vial) 40 mg IV Q6HR [facility] Last Admin: 08/04/21 11:46 Dose: 40 mg Documented by: Metoclopramide HCl (Metoclopramide 5 Mg Tab) 5 mg PO TID PRN PRN Reason: Nausea Multivitamins (Multivitamins, Thera 1 Each Tab) 1 each PO DAILY@1200 [facility] Last Admin: 08/04/21 11:45 Dose: 1 each Documented by: Naloxone HCl (Naloxone 0.4 Mg/Ml 1 Ml Vial) 0.2 mg IV Q2M PRN PRN Reason: Opioid Reversal Ondansetron HCl (Ondansetron Odt 4 Mg Tab) 4 mg PO Q6H PRN PRN Reason: Nausea And Vomiting Last Admin: 08/01/21 21:04 Dose: 4 mg Documented by: Oxycodone HCl (Oxycodone Hcl 5 Mg Tab) 10 mg PO Q4H PRN PRN Reason: Moderate Pain Last Admin: 08/01/21 20:58 Dose: 10 mg Documented by: Pantoprazole Sodium (Pantoprazole 40 Mg Tablet) 40 mg PO DAILY [facility] Last Admin: 08/04/21 08:17 Dose: 40 mg Documented by: Paroxetine HCl (Paroxetine 20 Mg Tab) 20 mg PO [facility] Last Admin: 08/03/21 20:13 Dose: 20 mg Documented by: Polyethylene Glycol (Polyethylene Glycol 3350 17 Gm Powd.Pack) 17 gm PO DAILY PRN PRN Reason: Constipation Senna/Docusate Sodium (Sennosides-Docusate Sodium 1 Each Tab) 2 each PO BID [facility] Last Admin: 08/04/21 08:16 Dose: 2 each Documented by: Thiamine HCl (Thiamine 100 Mg Tab) 100 mg PO DAILY@1200 [facility] Last Admin: 08/04/21 11:45 Dose: 100 mg Documented by: Past medical history to include: Lung cancer, COPD, GERD, Social history: Patient smoked a pack a day for about 37 years, stopped around 2018. 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 Lives with daughter. No alcohol. Family history: Lung cancer Physical examination: VITAL SIGNS: Afebrile, 75, 34, 116/78, 89% on ventilator GENERAL: Intubated. Sedated.. [ Loss of muscle mass and subcutaneous fat]. Right-sided chest tube. Subcutaneous emphysema EYES: Pupils equal. Conjunctiva pale HEENT: External appearance of nose and ears normal, oral cavity grossly normal. NECK: JVD unable to assess; masses not palpable. HEART: First and second heart sounds are normal; no edema. LUNGS: Respiratory rate increased diminished breath sounds prolonged expiration. Right-sided chest tube. Subcutaneous emphysema. ABDOMEN: Soft, nontender, liver spleen not palpable, no masses palpable. PSYCH: sedated MUSCULOSKELETAL:No Clubbing/cyanosis;muscles-grossly intact. Evidence of OA INVESTIGATIONS, reviewed in the clinical context: August 04: White count 13.5 hemoglobin 9.7 platelets were 85 potassium 4.6 creatinine 0.49 August 03: White count 14.4 hemoglobin 10.9 platelets 344 ABGs noted. Sodium 131 potassium 4.2 creatinine 0.5. Chest x-ray film: Pneumothorax minimal. Chest tube. Subcutaneous emphysema. Obesity right upper lobe. August 02: White count 9.7 hemoglobin 10.7 sodium 128 potassium 3.6 creatinine 0.45 August 01: White count 7.60 globin 10.2 albumin 2.9 Chest x-ray film personally reviewed by me [July 31]: Infiltrate. Some right-sided pneumothorax White count 8.3 hemoglobin 11.2 platelets 399 sodium 131 potassium 4.1 bicarb 32 BUN 14 creatinine 0.5 to EKG tracing personally reviewed by me-normal sinus rhythm. P pulmonale. T wave changes. Admission labs: Sodium 1:30 albumin 2.9 white count 13.4 hemoglobin 11 Chest x-ray film personally reviewed by [id number] pneumothorax. Right upper lobe mass Assessment and plan: -Right-sided pneumothorax, treated with Thora-vent in the ER. Chest tube placed on August 02. Miah suction -acute COPD exacerbation in a previous smoker.: Slow to respond DuoNeb. IV Solu-Medrol -Acute hypoxic respiratory failure from pneumothorax and pneumonia: Slow to respond intubated on the ventilator August 03 -Chronic hypoxic respiratory failure from underlying COPD 2-3 L of oxygen at home -Hyponatremia from decreased oral intake: -Septic shock IV levo fed -Suspect underlying pneumonia with gram-negative organism Cefepime 2 g every 8 -Lung cancer with metastatic disease status post chemotherapy and radiation treatment. Currently on immunotherapy. Consult oncology -Anxiety not otherwise specified Paxil 20 mg daily at bedtime -Anorexia secondary to underlying malignancy Encourage oral intake -Severe protein calorie malnutrition from decreased oral intake from underlying malignancy Ensure. Dietitian. -GERD Protonix -Chronic Back pain from malignancy Duragesic patch 100 g, oxycodone 10 mg every 4 when necessary -Full code IV cefepime. DuoNeb. right-sided chest tube . Intubated . ICU. Drips include propofol and norepinephrine. Prognosis guarded. Chest tube to suction. Discussed with the daughter the bedside.
[2021-08-04] MEDS: HYDROmorphone 1 MG/ML 1 ML SYRINGE IVP PRN ×2 (15:56→21:16)
[2021-08-04 17:30] LABS: Glucose,Whole Blood 136 mg/dL (75-99)
[2021-08-04] MEDS: GABAPENTIN 300 MG CAP PO SCH (21:03)
[2021-08-04] MEDS: MAGNESIUM OXIDE 400 MG TAB PO SCH (21:03)
[2021-08-04] MEDS: PARoxetine 20 MG TAB PO SCH (21:03)
[2021-08-04 23:45] LABS: Glucose,Whole Blood 122 mg/dL (75-99)
[2021-08-05] MEDS: IPRATROPIUM-ALBUTEROL 3 ML NEB INHALATION SCH ×5 (03:32→20:15)
[2021-08-05] MEDS: CEFEPIME 2 GM in SODIUM CHLORIDE 0.9% 100 ML IVPB SCH ×3 (04:02→21:47)
[2021-08-05 05:11] LABS: ABG Base Excess 3.7 mmol/L; ABG HCO3 28 mmol/L (21-25); ABG Oxygen Saturation 97.4 % (94-97); ABG PCO2 42 mmHg (35-45); ABG PH 7.43 (7.35-7.45); ABG PO2 93 mmHg (83-108); ABG TCO2 29 mmol/L (19-24); Allen Test Performed? Yes
[2021-08-05 05:19] LABS: HCT 29.7 % (39.0-53.0); Hypochromasia Marked; MCH 28.5 pg (25.0-35.0); MCHC 30.4 g/dL (31.0-37.0); MCV 93.9 fL (80.0-100.0); Mean Platelet Volume 7.1; Platelet Count 456 k/uL (150-450); RBC 3.17 m/uL (4.30-5.90); RDW 15.9 % (11.5-15.5); WBC 13.6 k/uL (3.8-10.6)
[2021-08-05 05:27] LABS: African American GFR (CKD) >90 (>60 ml/min/1.73 sqM); Anion Gap 3 mmol/L; Blood Urea Nitrogen 25 mg/dL (9-20); Calcium 8.3 mg/dL (8.4-10.2); Carbon Dioxide 27 mmol/L (22-30); Chloride 103 mmol/L (98-107); Glucose 124 mg/dL (74-99); Non-African American GFR(CKD) >90 (>60 ml/min/1.73 sqM); Sodium 133 mmol/L (137-145)
[2021-08-05] MEDS: methylPREDNISolone SOD SUCCI 40 MG/ML 1 ML VIAL IV SCH ×3 (05:35→21:40)
[2021-08-05] MEDS: KETOROLAC 30 MG/ML 1 ML VIAL IVP SCH ×3 (05:35→21:40)
[2021-08-05 05:36] LABS: Glucose,Whole Blood 130 mg/dL (75-99)
[2021-08-05] MEDS: INSULIN ASPART (NovoLOG) 100 UNIT/ML VIAL SQ SCH ×3 (05:36→21:21)
--- NOTE | 2021-08-05 07:36 | XR ---
EXAMINATION TYPE: XR chest 1V portable DATE OF EXAM: 08/05/2021 CLINICAL HISTORY: Difficulty breathing and pneumothorax progress study. TECHNIQUE: Single AP portable semiupright view of the chest is obtained. COMPARISON: Chest x-ray from one day earlier and older studies. FINDINGS: Stable Endotracheal tube terminates and orogastric tubes. Stable right subclavian central v enous catheter. Stable right basilar chest tube. Background chronic emphysematous change redemonstrated. Cardiac nicole houette size stable and within normal limits. Chronic right-sided volume loss redemonstrated. Persist ent overlying subcutaneous emphysema. This is more prominent now extending throughout the left chest. No visualized right-sided pneumothorax currently. Increased multifocal opacities in the right lung r emain present. Osseous structures remain intact. Chronic right hilar masslike opacity. There is right midlung thin-walled cyst or cystic lesion redemonstrated. Left lung remains clear. Pneumoperitoneum is likely present. IMPRESSION: Worsening overlying subcutaneous emphysema. Other findings not significantly changed. No visualized right-sided pneumothorax with chest tube in place. Right-sided volume loss with multifocal right lung opacities and right hilar masslike opacity. Right mid to lower lung thin walled cyst.
[2021-08-05] MEDS: SENNOSIDES-DOCUSATE SODIUM 1 EACH TAB PO SCH ×2 (08:23→21:59)
[2021-08-05] MEDS: PANTOPRAZOLE 40 MG TABLET PO SCH (08:24)
[2021-08-05] MEDS: ENOXAPARIN 40 MG/0.4 ML SYRINGE SQ SCH (08:25)
[2021-08-05] MEDS: guaiFENesin 600 MG TABLET.ER PO SCH ×2 (08:25→21:48)
[2021-08-05] MEDS: DEXMEDETOMIDINE/0.9% NACL(PMX) 400 MCG in EMPTY BAG 1 BAG IV SCH (10:55)
[2021-08-05] MEDS: SODIUM CHLORIDE 0.9% 1,000 ML IV SCH (11:30)
[2021-08-05] MEDS: MULTIVITAMINS, THERA 1 EACH TAB PO SCH (11:33)
[2021-08-05] MEDS: FOLIC ACID 1 MG TAB PO SCH (11:33)
[2021-08-05] MEDS: THIAMINE 100 MG TAB PO SCH (11:33)
[2021-08-05 11:49] LABS: Glucose,Whole Blood 119 mg/dL (75-99)
--- NOTE | 2021-08-05 13:05 | P.PN ---
Subjective Progress Note Date: 08/05/21 Principal diagnosis: Acute hypoxic respiratory failure, multifactorial 08/03/2021, the patient is currently in the intensive care unit. 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 He became progressively more short of breath, lethargic, tachypneic, and he was using excessive muscle breathing. He was placed on a BiPAP and by the time he arrived to the ICU, he was quite somnolent and sleepy and lethargic. At that point, I intubated the patient with him on a mechanical ventilator. The right-sided chest tube was still in place. A chest x-ray was done post intubation showed a right apical pneumothorax. This appears emphysema on the right. ET tube is in a good location. Chest tube is in a good location. There is persistent air leak from the chest tube. there is no interval worsening in the size of the right-sided pneumothorax. Post intubation, the patient was kept on a rate of 24, tidal volume of 300, FiO2 of 100% with a PEEP of 5. Current pulse ox is 90%. Blood pressure is stable with a blood pressure of 90/64. Heart rate is 103, sinus. His, comfortable on propofol which is running at 20 mg/kg per minute. The patient also received a dose of Nimbex 10 mg IV push prior to intubation. The triple-lumen cath was also inserted in the left subclavian. He does have some subcutaneous emphysema along the left chest area.Blood work shows a white cell count of 14.4 with a hemoglobin of 10.9 and a platelet count of 344. His sodium level is at 131, BUN is at 40 with a creatinine of 0.5 from this morning. LFTs are within normal limits. Note that during the intubation process and under direct laryngoscopic evaluation, the patient had some purulent material accumulating in his posterior oropharynx and covering his epiglottis and vocal cords. He is currently on IV cefepime. While on a mechanical ventilator, is particularly pressures around 31. Reevaluated today on 08/04/2021, patient remains in the ICU, intubated and mechanically ventilated. His daughter is at bedside. Patient is on assist control rate of 24 tidal volume is 300 FiO2 50% and PEEP of 5. Peak airway pressure is 24.2 pressures 13. Patient's showed a pO2 of 106 pCO2 49 pH of 7.36, hence cut down his FiO2 to 45%, otherwise no changes in his vent settings. Patient is requiring norepinephrine at 0.12, propofol is at 50 IV fluids at KVO. Chest x-ray showed reexpansion of the right lung, significant subcutaneous emphysema is noted. Remains on antibiotics in the form of cefepime. Patient will be placed on pressure support mode of mechanical ventilation and CPAP if tolerated. However I will try to awaken the patient today, and possibly assess weaning parameters and proceed to weaning mode if possible and if tolerated. In the meantime patient has significant subcu emphysema, and I went ahead and plac ed a 14-gauge angiocatheter in the anterior chest wall for decompression of the subcutaneous emphysema. Patient's acute presentation of respiratory failure seems to be related to underlying COPD, large right-sided pneumothorax requiring chest tube placement, and he has a stage IV non-small cell lung cancer. Patient is on immunotherapy. Labs today were reviewed WBC count is 13.5 hemoglobin 9.7 left lites are normal renal profile is normal Reevaluated today on 08/05/2021, patient remains intubated mechanically ventilated, sedated, he is on assist control rate of 24 tidal volume 300 FiO2 40% PEEP of 5. ABG showed a pO2 of 93 pCO2 of 42 pH of 7.43. Patient remains on enteral tube feeding, he is on vital 1.5 at 50 mL per hour. Patient is on propofol which I placed on hold planning to wean and extubate the patient. He is also on norepinephrine at 0.03 mcg/kg/m. Right-sided chest tube remains in place, no air leak is noted, however the patient seems to be developing worsening subcutaneous emphysema. There is no evidence of pneumothorax. Patient is arousable, follows simple instructions, but intermittently seems to be a bit agitated, hence I started the patient on Precedex, I discontinued his propofol, and I plan to give the patient a weaning trial and hopefully extubate today. Chest x-ray shows right-sided volume loss with multifocal right lung opacities and the right hilar mass like opacity and evidence of subcutaneous emphysema noted WBC count is 13.6 hemoglobin is 9 electrolytes are normal renal profile is normal bicarb is 27 Objective - Vital Signs Vital signs: Vital Signs Temp 97.0 F L 08/05/21 08:00 Pulse 71 08/05/21 12:00 Resp 16 08/05/21 12:00 BP 101/67 08/05/21 12:00 Pulse Ox 94 L 08/05/21 12:00 Intake & Output 08/04/21 08/05/21 08/05/21 18:59 06:59 18:59 Intake Total 6329.136 6461.184 789.133 Output Total 370 340 215 Balance 7365.962 9991.184 574.133 Weight 54.5 kg 53.2 kg Intake: IV 900 825 450 Sodium Chloride 0.9% 1, 900 825 450 000 ml @ 75 mls/hr IV . [id number] [facility] Rx#:[id number] Intake, IV Titration 262.622 430.184 69.133 Amount Dexmedetomidine/0.9% NaCl 0.887 (Pmx) 400 mcg In Empty Bag 1 bag @ 0.2 MCG/KG/HR 2.66 mls/hr IV .Q24H [facility] Rx#:[id number] Norepinephrine 8 mg In 162.622 205.097 16.004 Sodium Chloride 0.9% 250 ml @ 0.05 MCG/KG/MIN 4. 388 mls/hr IV .Q24H [facility] Rx#:[id number] propofoL 1,000 mg In 100 225.087 52.242 Empty Bag 1 bag @ Titrate IV .Q0M [facility] Rx#: [id number] Tube Feeding 80 220 140 Other 230 90 130 Output: Urine 370 340 215 Other: Voiding Method Indwelling Catheter Indwelling Catheter Indwelling Catheter ABP, PAP, CO, CI - Last Documented Arterial Blood Pressure 123/70 - Exam GENERAL EXAM: Revealed 56-year-old white male intubated, mechanically ventilated, awake, follows all instructions. HEAD: Normocephalic. Atraumatic. HEENT: PERRLA, EOMI, nonicteric, no neck masses, no JVD, subcutaneous emphysema is noted. CHEST: Symmetrical chest expansion, significant subcutaneous emphysema noted in the anterior chest wall area. Crackles at the bases. No rhonchi and no wheezes. Sided chest tube is noted, no air leak noted CVS: S1 and S2 normal with no audible murmur, regular rhythm. ABDOMEN: Soft nontender no megaly no rebound no guarding. SPINE: No scoliosis or deformity SKIN: No rashes CENTRAL NERVOUS SYSTEM: No focal deficits, tone is normal in all 4 extremities EXTREMITIES: There is no peripheral edema. No clubbing, no cyanosis. Peripheral pulses are intact. - Labs CBC & Chem 7: 08/05/21 04:05 08/05/21 04:05 Labs: Abnormal Lab Results - Last 24 Hours (Table) 08/04/21 08/04/21 08/05/21 Range/Units 17:28 23:43 04:05 WBC 13.6 H (3.8-10.6) k/uL RBC 3.17 L (4.30-5.90) m/uL Hgb 9.0 L (13.0-17.5) gm/dL Hct 29.7 L (39.0-53.0) % MCHC 30.4 L (31.0-37.0) g/dL RDW 15.9 H (11.5-15.5) % Plt Count 456 H (150-450) k/uL ABG HCO3 (21-25) mmol/L ABG Total CO2 (19-24) mmol/L ABG O2 Saturation (94-97) % Sodium (137-145) mmol/L BUN (9-20) mg/dL Creatinine (0.66-1.25) mg/dL Glucose (74-99) mg/dL POC Glucose (mg/dL) 136 H 122 H (75-99) mg/dL Calcium (8.4-10.2) mg/dL 08/05/21 08/05/21 08/05/21 Range/Units 04:05 05:04 05:35 WBC (3.8-10.6) k/uL RBC (4.30-5.90) m/uL Hgb (13.0-17.5) gm/dL Hct (39.0-53.0) % MCHC (31.0-37.0) g/dL RDW (11.5-15.5) % Plt Count (150-450) k/uL ABG HCO3 28 H (21-25) mmol/L ABG Total CO2 29 H (19-24) mmol/L ABG O2 Saturation 97.4 H (94-97) % Sodium 133 L (137-145) mmol/L BUN 25 H (9-20) mg/dL Creatinine 0.54 L (0.66-1.25) mg/dL Glucose 124 H (74-99) mg/dL POC Glucose (mg/dL) 130 H (75-99) mg/dL Calcium 8.3 L (8.4-10.2) mg/dL 08/05/21 Range/Units 11:48 WBC (3.8-10.6) k/uL RBC (4.30-5.90) m/uL Hgb (13.0-17.5) gm/dL Hct (39.0-53.0) % MCHC (31.0-37.0) g/dL RDW (11.5-15.5) % Plt Count (150-450) k/uL ABG HCO3 (21-25) mmol/L ABG Total CO2 (19-24) mmol/L ABG O2 Saturation (94-97) % Sodium (137-145) mmol/L BUN (9-20) mg/dL Creatinine (0.66-1.25) mg/dL Glucose (74-99) mg/dL POC Glucose (mg/dL) 119 H (75-99) mg/dL Calcium (8.4-10.2) mg/dL Microbiology - Last 24 Hours (Table) 08/03/21 08:30 Gram Stain - Final Sputum Sputum Culture - Final Pseudomonas aeruginosa Diane albicans Assessment and Plan Assessment: Acute on chronic hypoxemic respiratory failure , multifactorial as the patient has COPD, lung cancer, and a acute right-sided large pneumothorax. Requiring chest tube placement. Stage IV a poorly differentiated non-small cell lung cancer diagnosed in June of 2020. Recent hospitalization for right lower lobe pneumonia secondary to Pseudomonas discharged on 07/03 Tobacco dependence syndrome. Subcutaneous emphysema secondary to right-sided pneumothorax, status post chest tube insertion. And status post placement of 14-gauge Angiocath in the anterior chest wall area. Recommendation: Continue ventilatory support. However will give the patient a trial of weaning and possibly extubate today if possible. Continue norepinephrine and titrate accordingly. Will likely discontinue nore pinephrine, he is on small dose, and it will not be needed was the patient is fully awake and and off sedation. Continue antibiotics/cefepime. Continue bronchodilators and IV Solu-Medrol. Enteral feeding via orogastric tube. Continue Lovenox for DVT prophylaxis. Continue IV Protonix. Patient will be given a trial of pressure support and CPAP, may use Precedex for this patient to wean and extubate. Critical care time is over 30 minutes. Time with Patient: Greater than 30
--- NOTE | 2021-08-05 14:31 | P.PN ---
Subjective Progress Note Date: 08/05/21 Principal diagnosis: Resp failure, NSCLC In f/u today pt is feeling ok, doesn't remember much of the last week. He denies fever, difficulty breathing but is SOB with any exertion. Objective - Vital Signs Vital signs: Vital Signs Temp 97.0 F L 08/05/21 08:00 Pulse 68 08/05/21 13:00 Resp 12 08/05/21 13:00 BP 97/68 08/05/21 13:00 Pulse Ox 97 08/05/21 13:00 Intake & Output 08/04/21 08/05/21 08/05/21 18:59 06:59 18:59 Intake Total 8878.798 5050.184 864.133 Output Total 370 340 250 Balance 0626.386 1563.184 614.133 Weight 54.5 kg 53.2 kg Intake: IV 900 825 525 Sodium Chloride 0.9% 1, 900 825 525 000 ml @ 75 mls/hr IV . [id number] [facility] Rx#:[id number] Intake, IV Titration 262.622 430.184 69.133 Amount Dexmedetomidine/0.9% NaCl 0.887 (Pmx) 400 mcg In Empty Bag 1 bag @ 0.2 MCG/KG/HR 2.66 mls/hr IV .Q24H [facility] Rx#:[id number] Norepinephrine 8 mg In 162.622 205.097 16.004 Sodium Chloride 0.9% 250 ml @ 0.05 MCG/KG/MIN 4. 388 mls/hr IV .Q24H [facility] Rx#:[id number] propofoL 1,000 mg In 100 225.087 52.242 Empty Bag 1 bag @ Titrate IV .Q0M [facility] Rx#: [id number] Tube Feeding 80 220 140 Other 230 90 130 Output: Urine 370 340 250 Other: Voiding Method Indwelling Catheter Indwelling Catheter Indwelling Catheter ABP, PAP, CO, CI - Last Documented Arterial Blood Pressure 128/68 - Constitutional General appearance: Present: average body habitus, cooperative, no acute distress - EENT Eyes: Present: anicteric sclerae, EOMI ENT: Present: hearing grossly normal, thrush - Respiratory Respiratory: bilateral: diminished, rhonchi (anterior, few soft, scattered) - Cardiovascular Rhythm: regular - Peripheral edema leg Peripheral Edema: bilateral: None - Gastrointestinal General gastrointestinal: Present: normal bowel sounds, soft - Integumentary Integumentary Comment(s): Sq emphysema on the rt arm - Neurologic Neurologic: Present: CNII-XII intact - Musculoskeletal Musculoskeletal: Present: generalized weakness - Psychiatric Psychiatric: Present: A&O x's 3, appropriate affect, intact judgment & insight - Labs CBC & Chem 7: 08/05/21 04:05 08/05/21 04:05 Labs: Abnormal Lab Results - Last 24 Hours (Table) 08/04/21 08/04/21 08/05/21 Range/Units 17:28 23:43 04:05 WBC 13.6 H (3.8-10.6) k/uL RBC 3.17 L (4.30-5.90) m/uL Hgb 9.0 L (13.0-17.5) gm/dL Hct 29.7 L (39.0-53.0) % MCHC 30.4 L (31.0-37.0) g/dL RDW 15.9 H (11.5-15.5) % Plt Count 456 H (150-450) k/uL ABG HCO3 (21-25) mmol/L ABG Total CO2 (19-24) mmol/L ABG O2 Saturation (94-97) % Sodium (137-145) mmol/L BUN (9-20) mg/dL Creatinine (0.66-1.25) mg/dL Glucose (74-99) mg/dL POC Glucose (mg/dL) 136 H 122 H (75-99) mg/dL Calcium (8.4-10.2) mg/dL 08/05/21 08/05/21 08/05/21 Range/Units 04:05 05:04 05:35 WBC (3.8-10.6) k/uL RBC (4.30-5.90) m/uL Hgb (13.0-17.5) gm/dL Hct (39.0-53.0) % MCHC (31.0-37.0) g/dL RDW (11.5-15.5) % Plt Count (150-450) k/uL ABG HCO3 28 H (21-25) mmol/L ABG Total CO2 29 H (19-24) mmol/L ABG O2 Saturation 97.4 H (94-97) % Sodium 133 L (137-145) mmol/L BUN 25 H (9-20) mg/dL Creatinine 0.54 L (0.66-1.25) mg/dL Glucose 124 H (74-99) mg/dL POC Glucose (mg/dL) 130 H (75-99) mg/dL Calcium 8.3 L (8.4-10.2) mg/dL 08/05/21 Range/Units 11:48 WBC (3.8-10.6) k/uL RBC (4.30-5.90) m/uL Hgb (13.0-17.5) gm/dL Hct (39.0-53.0) % MCHC (31.0-37.0) g/dL RDW (11.5-15.5) % Plt Count (150-450) k/uL ABG HCO3 (21-25) mmol/L ABG Total CO2 (19-24) mmol/L ABG O2 Saturation (94-97) % Sodium (137-145) mmol/L BUN (9-20) mg/dL Creatinine (0.66-1.25) mg/dL Glucose (74-99) mg/dL POC Glucose (mg/dL) 119 H (75-99) mg/dL Calcium (8.4-10.2) mg/dL Microbiology - Last 24 Hours (Table) 08/03/21 08:30 Gram Stain - Final Sputum Sputum Culture - Final Pseudomonas aeruginosa Diane albicans - Imaging and Cardiology Chest x-ray: report reviewed (worse SQ emphysema, no notable rt pneumo) Assessment and Plan (1) Lung cancer Narrative/Plan: NSCLC. Currently on Keytruda. Has done well. No current evidence to suggest disease progressive/recurrence at this time. Pt will f/u with Primary Oncologist prior to resuming IO Current Visit: Yes Status: Chronic Priority: Medium Code(s): C34.90 - MALIGNANT NEOPLASM OF UNSP PART OF UNSP BRONCHUS OR LUNG SNOMED Code(s): 906447662 (2) Oral thrush Narrative/Plan: Nystatin solution to treat. Current Visit: Yes Status: Acute Priority: Medium Code(s): B37.0 - CANDIDAL STOMATITIS SNOMED Code(s): 72405744 Plan: Pulmonary, Critical Care mgmt in ICU. Pt condition is slowly improving.
[2021-08-05 17:22] LABS: Glucose,Whole Blood 117 mg/dL (75-99)
--- NOTE | 2021-08-05 20:42 | P.PN ---
Progress Note - Text Progress Note Date: 08/05/21 Chief Complaint: Cough with sputum History of presenting complaint: This is a very pleasant 56-year-old patient of Dr. Cabello. followed by Dr. Saleem of the certified ethical hacker, Dr. Daniel the oncologist and Dr. Floyd Medina from radiation oncology. Diagnosis of with lung cancer. Has only had radiation treatment and chemotherapy. Currently getting immunotherapy. For about a week patient been having increasing amount of cough. Bringing up some green yellow and bloody sputum. Appetite has been poor. Bowels are okay. At home uses 3 L of oxygen. Has been having weight loss. Significantly short of breath and some wheezing. Tired rundown. In the ER the patient was found to have a large sided pneumothorax. 13-Canadian Thora-vent was placed by ER physician. Repeat chest x-ray showed continued pneumothorax. Patient is put on suction for about an hour and subsequent x-ray showed improvement. This morning patient still short of breath but slightly better. Tired. Continues to have his chronic low back pain which is significant July 31: Patient has some pneumothorax on the right side. Some air leak. Subcutaneous emphysema. Given his immunosuppressed state steroids discontinued by pulmonary. Patient's breathing a bit better today. Congested cough. Eating some. Tired. Short of breath. IV cefepime August 01: Dr. Holley detected Thora-vent and flushed the catheter./The tubing. Tubing was replaced. Congested cough continues. Oral intake fair. Diet. 4 L nasal cannula. Propped up in bed. August 02: Because of persistent pneumothorax and increasing subcu to [address] Holley discontinued the Thora-vent and placed a right-sided chest tube. Oral intake fair. On 4 L nasal cannula. August 03: ICU: This morning patient became more short of breath. Brought to the ICU. Intubated. Drips include norepinephrine, propofol. Patient sedated. Ventilator: FiO2 60% and a PEEP of 5. Sinus rhythm. Discussed with daughter the bedside. August 04: ICU. Ventilator: 50/5. Telemetry: Sinus rhythm. Intubated. Sedated. Drips include IV propofol and norepinephrine. Subcutaneous emphysema present. Discussed with daughter the bedside. August 05: ICU. Patient was extubated earlier today. On nasal cannula. 5 L. Right-sided chest tube. Sinus tachycardia. Daughter the bedside. Awake answering questions. Subcutis emphysema significant. Short of breath. Active Medications Acetaminophen (Acetaminophen Tab 325 Mg Tab) 650 mg PO Q6HR PRN PRN Reason: Mild Pain or Fever > 100.5 Albuterol/Ipratropium (Ipratropium-Albuterol 3 Ml Neb) 3 ml INHALATION RT-QID [facility] Last Admin: 08/05/21 20:15 Dose: 3 ml Documented by: Cholestyramine Resin (Cholestyramine (With Sugar) 4 Gm Packet) 4 gm PO DAILY PRN PRN Reason: Diarrhea Enoxaparin Sodium (Enoxaparin 40 Mg/0.4 Ml Syringe) 40 mg SQ DAILY [facility] Last Admin: 08/05/21 08:25 Dose: 40 mg Documented by: Fentanyl (Fentanyl 100mcg/Hr Patch) 1 patch TRANSDERM Q72H [facility]; Protocol Last Admin: 08/04/21 23:46 Dose: 1 patch Documented by: Folic Acid (Folic Acid 1 Mg Tab) 1 mg PO DAILY@1200 [facility] Last Admin: 08/05/21 11:33 Dose: 1 mg Documented by: Gabapentin (Gabapentin 300 Mg Cap) 300 mg PO HS [facility] Last Admin: 08/04/21 21:03 Dose: 300 mg Documented by: Guaifenesin (Guaifenesin 600 Mg Tablet.Er) 600 mg PO Q12HR [facility] Last Admin: 08/05/21 08:25 Dose: 600 mg Documented by: Hydromorphone HCl (Hydromorphone 1 Mg/Ml 1 Ml Syringe) 1 mg IVP Q4HR PRN PRN Reason: severe Pain Last Admin: 08/04/21 21:16 Dose: 1 mg Documented by: Cefepime HCl 2 gm/ Sodium (Chloride) 100 mls @ 25 mls/hr IVPB Q8H [facility] Last Admin: 08/05/21 11:30 Dose: 25 mls/hr Documented by: Sodium Chloride (Saline 0.9%) 1,000 mls @ 75 mls/hr IV .[id number] [facility] Last Admin: 08/05/21 11:30 Dose: 75 mls/hr Documented by: Norepinephrine Bitartrate 8 mg (/ Sodium Chloride) 258 mls @ 4.388 mls/hr IV .Q24H [facility]; Protocol Last Titration: 08/05/21 11:15 Dose: 0 mcg/kg/min, 0 mls/hr Documented by: Propofol 1,000 mg/ IV Solution 100 mls @ 0 mls/hr IV .Q0M [facility]; Protocol Last Admin: 08/05/21 10:05 Dose: 40 mcg/kg/min, 12.768 mls/hr Documented by: Dexmedetomidine HCl 400 mcg/ (IV Solution) 100 mls @ 2.66 mls/hr IV .Q24H [facility]; Protocol Last Titration: 08/05/21 11:15 Dose: 0 mcg/kg/hr, 0 mls/hr Documented by: Insulin Aspart (Insulin Aspart (Novolog) 100 Unit/Ml Vial) 0 unit SQ Q6H [facility]; Protocol Last Admin: 08/05/21 11:52 Dose: Not Given Documented by: Ketorolac Tromethamine (Ketorolac 30 Mg/Ml 1 Ml Vial) 15 mg IVP Q6HR [facility] Stop: 08/07/21 12:01 Last Admin: 08/05/21 11:33 Dose: 15 mg Documented by: Magnesium Oxide (Magnesium Oxide 400 Mg Tab) 400 mg PO HS [facility] Last Admin: 08/04/21 21:03 Dose: 400 mg Documented by: Melatonin (Melatonin 3 Mg Tablet) 3 mg PO HS PRN PRN Reason: Insomnia Methylprednisolone Sodium Succinate (Methylprednisolone Sod Succi 40 Mg/Ml 1 Ml Vial) 40 mg IV Q6HR [facility] Last Admin: 08/05/21 11:34 Dose: 40 mg Documented by: Metoclopramide HCl (Metoclopramide 5 Mg Tab) 5 mg PO TID PRN PRN Reason: Nausea Multivitamins (Multivitamins, Thera 1 Each Tab) 1 each PO DAILY@1200 [facility] Last Admin: 08/05/21 11:33 Dose: 1 each Documented by: Naloxone HCl (Naloxone 0.4 Mg/Ml 1 Ml Vial) 0.2 mg IV Q2M PRN PRN Reason: Opioid Reversal Nystatin (Nystatin 100,000 Unit/Ml Susp 500,000 Unit/5 Ml Cup) 500,000 unit PO QID [facility] Ondansetron HCl (Ondansetron Odt 4 Mg Tab) 4 mg PO Q6H PRN PRN Reason: Nausea And Vomiting Last Admin: 08/01/21 21:04 Dose: 4 mg Documented by: Oxycodone HCl (Oxycodone Hcl 5 Mg Tab) 10 mg PO Q4H PRN PRN Reason: Moderate Pain Last Admin: 08/05/21 14:42 Dose: 10 mg Documented by: Pantoprazole Sodium (Pantoprazole 40 Mg Tablet) 40 mg PO DAILY [facility] Last Admin: 08/05/21 08:24 Dose: 40 mg Documented by: Paroxetine HCl (Paroxetine 20 Mg Tab) 20 mg PO HS [facility] Last Admin: 08/04/21 21:03 Dose: 20 mg Documented by: Polyethylene Glycol (Polyethylene Glycol 3350 17 Gm Powd.Pack) 17 gm PO DAILY PRN PRN Reason: Constipation Senna/Docusate Sodium (Sennosides-Docusate Sodium 1 Each Tab) 2 each PO BID [facility] Last Admin: 08/05/21 08:23 Dose: 2 each Documented by: Thiamine HCl (Thiamine 100 Mg Tab) 100 mg PO DAILY@1200 [facility] Last Admin: 08/05/21 11:33 Dose: 100 mg Documented by: Past medical history to include: Lung cancer, COPD, GERD, Social history: Patient smoked a pack a day for about 37 years, stopped around 2017. 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 Lives with daughter. No alcohol. Family history: Lung cancer Physical examination: VITAL SIGNS: Afebrile, 69, 37, 101/67, 93% on 6 L GENERAL: Awake short of breath.. [ Loss of muscle mass and subcutaneous fat]. Right-sided chest tube. Subcutaneous emphysema EYES: Pupils equal. Conjunctiva pale HEENT: External appearance of nose and ears normal, oral cavity grossly normal. NECK: JVD unable to assess; masses not palpable. HEART: First and second heart sounds are normal; no edema. LUNGS: Respiratory rate increased diminished breath sounds prolonged expiration. Right-sided chest tube. Subcutaneous emphysema. ABDOMEN: Soft, nontender, liver spleen not palpable, no masses palpable. PSYCH: Awake, answering questions MUSCULOSKELETAL:No Clubbing/cyanosis;muscles-grossly intact. Evidence of OA INVESTIGATIONS, reviewed in the clinical context: August 05: White count 13.6 hemoglobin 9 platelets 456 potassium 5 BUN 25 creatinine 0.5 for August 04: White count 13.5 hemoglobin 9.7 platelets were 85 potassium 4.6 creatinine 0.49 August 03: White count 14.4 hemoglobin 10.9 platelets 344 ABGs noted. Sodium 131 potassium 4.2 creatinine 0.5. Chest x-ray film: Pneumothorax minimal. Chest tube. Subcutaneous emphysema. Obesity right upper lobe. August 02: White count 9.7 hemoglobin 10.7 sodium 128 potassium 3.6 creatinine 0.45 August 01: White count 7.60 globin 10.2 albumin 2.9 Chest x-ray film personally reviewed by me [July 31]: Infiltrate. Some right-sided pneumothorax White count 8.3 hemoglobin 11.2 platelets 399 sodium 131 potassium 4.1 bicarb 32 BUN 14 creatinine 0.5 to EKG tracing personally reviewed by me-normal sinus rhythm. P pulmonale. T wave changes. Admission labs: Sodium 1:30 albumin 2.9 white count 13.4 hemoglobin 11 Chest x-ray film personally reviewed by [id number] pneumothorax. Right upper lobe mass Assessment and plan: -Right-sided pneumothorax, treated with Thora-vent in the ER. Chest tube placed on August 02. Miah suction -acute COPD exacerbation in a previous smoker.: Slow to respond DuoNeb. IV Solu-Medrol 40 mg every 6 -Acute hypoxic respiratory failure from pneumothorax and pneumonia: Slow to respond intubated on the ventilator August 03. Extubated August 05. Currently 6 L nasal cannula -Subcutaneous emphysema progressive -Chronic hypoxic respiratory failure from underlying COPD 2-3 L of oxygen at home -Hyponatremia from decreased oral intake: -Septic shock: Improved IV levo fed discontinued -Suspect underlying pneumonia with gram-negative organism Cefepime 2 g every 8 -Lung cancer with metastatic disease status post chemotherapy and radiation treatment. Currently on immunotherapy. -Anxiety not otherwise specified Paxil 20 mg daily at bedtime -Anorexia secondary to underlying malignancy Encourage oral intake -Severe protein calorie malnutrition from decreased oral intake from underlying malignancy Ensure. Dietitian. -GERD Protonix -Chronic Back pain from malignancy Duragesic patch 100 g, oxycodone 10 mg every 4 when necessary -Full code IV cefepime. DuoNeb. right-sided chest tube . Extubated today.. Prognosis guarded. Chest tube to suction. Discussed with patient and daughter the bedside. 6 L nasal cannula.
[2021-08-05] MEDS: NYSTATIN 100,000 UNIT/ML SUSP 500,000 UNIT/5 ML CUP PO SCH ×3 (21:20→23:24)
[2021-08-05] MEDS: MAGNESIUM OXIDE 400 MG TAB PO SCH (21:48)
[2021-08-05] MEDS: HYDROmorphone 1 MG/ML 1 ML SYRINGE IVP PRN (21:49)
[2021-08-05] MEDS: PARoxetine 20 MG TAB PO SCH (21:59)
[2021-08-05] MEDS: GABAPENTIN 300 MG CAP PO SCH (22:07)
[2021-08-06] MEDS: INSULIN ASPART (NovoLOG) 100 UNIT/ML VIAL SQ SCH ×3 (00:02→13:16)
[2021-08-06 00:03] LABS: Glucose,Whole Blood 102 mg/dL (75-99)
[2021-08-06] MEDS: methylPREDNISolone SOD SUCCI 40 MG/ML 1 ML VIAL IV SCH ×3 (00:05→20:20)
[2021-08-06] MEDS: KETOROLAC 30 MG/ML 1 ML VIAL IVP SCH ×4 (00:06→17:28)
[2021-08-06] MEDS: SODIUM CHLORIDE 0.9% 1,000 ML IV SCH ×2 (03:19→15:41)
[2021-08-06] MEDS: CEFEPIME 2 GM in SODIUM CHLORIDE 0.9% 100 ML IVPB SCH ×3 (03:20→20:20)
[2021-08-06 05:19] LABS: Glucose,Whole Blood 101 mg/dL (75-99)
[2021-08-06] MEDS: IPRATROPIUM-ALBUTEROL 3 ML NEB INHALATION SCH ×4 (05:53→20:13)
--- NOTE | 2021-08-06 08:22 | XR ---
EXAMINATION TYPE: XR chest 1V portable DATE OF EXAM: 08/06/2021 Comparison: 08/15/2021 Clinical History: 56-year-old male evaluate pneumo, Intubated Findings: Extensive bilateral subcutaneous emphysema persists. Right CVC tip lower SVC. Right-sided chest tuber in place. An 8.2 cm air cyst redemonstrated right mid to lower lung. There appears to be interval de velopment of a 5.3 cm air cyst right suprahilar region. The patient is rotated towards the right ultr asound and normal cardiac mediastinal contours. Hyperinflation. Continued patchy opacities throughout the right lung without significant change. Impression: 1. COPD with right-sided chest tube in place. No appreciable pneumothorax. Severe bilateral subcutane ous emphysema persists. 2. Limited, rotated exam. A couple air cysts on the right measuring 8.2 cm and 5.3 cm. The right supr ahilar 5.3 cm air cyst was not previously as well seen. 3. Patchy infiltrates throughout the right lung show no significant change.
[2021-08-06] MEDS: ENOXAPARIN 40 MG/0.4 ML SYRINGE SQ SCH (08:53)
[2021-08-06] MEDS: SENNOSIDES-DOCUSATE SODIUM 1 EACH TAB PO SCH ×2 (08:53→20:21)
[2021-08-06] MEDS: NYSTATIN 100,000 UNIT/ML SUSP 500,000 UNIT/5 ML CUP PO SCH ×4 (08:53→22:16)
[2021-08-06] MEDS: PANTOPRAZOLE 40 MG TABLET PO SCH (08:54)
[2021-08-06] MEDS: guaiFENesin 600 MG TABLET.ER PO SCH ×2 (08:54→20:21)
[2021-08-06] MEDS: NOREPINEPHRINE 8 MG in SODIUM CHLORIDE 0.9% 250 ML IV SCH (09:06)
[2021-08-06] MEDS: DEXMEDETOMIDINE/0.9% NACL(PMX) 400 MCG in EMPTY BAG 1 BAG IV SCH ×2 (09:06→15:38)
[2021-08-06] MEDS: HYDROmorphone 1 MG/ML 1 ML SYRINGE IVP PRN ×3 (10:01→20:18)
[2021-08-06] MEDS: FOLIC ACID 1 MG TAB PO SCH (11:26)
[2021-08-06] MEDS: MULTIVITAMINS, THERA 1 EACH TAB PO SCH (11:26)
[2021-08-06] MEDS: THIAMINE 100 MG TAB PO SCH (11:26)
--- NOTE | 2021-08-06 11:41 | P.PN ---
Subjective Progress Note Date: 08/06/21 Principal diagnosis: Resp failure, NSCLC In f/u today pt has periorbital and facial edema, he is SOB at rest, it "hurts" to breathe, he cannot exert or reposition himself. Objective - Vital Signs Vital signs: Vital Signs Temp 97.8 F 08/06/21 09:00 Pulse 80 08/06/21 11:17 Resp 37 H 08/06/21 10:00 BP 131/88 08/06/21 10:00 Pulse Ox 91 L 08/06/21 10:00 Intake & Output 08/05/21 08/06/21 08/06/21 18:59 06:59 18:59 Intake Total 1599.133 975 300 Output Total 410 505 300 Balance 1189.133 470 0 Intake: IV 900 975 300 Cefepime 2 gm In Sodium 75 Chloride 0.9% 100 ml @ 25 mls/hr IVPB Q8H [facility] Rx#: [id number] Sodium Chloride 0.9% 1, 900 900 300 000 ml @ 75 mls/hr IV . [id number] [facility] Rx#:[id number] Intake, IV Titration 69.133 Amount Dexmedetomidine/0.9% NaCl 0.887 (Pmx) 400 mcg In Empty Bag 1 bag @ 0.2 MCG/KG/HR 2.66 mls/hr IV .Q24H [facility] Rx#:[id number] Norepinephrine 8 mg In 16.004 Sodium Chloride 0.9% 250 ml @ 0.05 MCG/KG/MIN 4. 388 mls/hr IV .Q24H [facility] Rx#:[id number] propofoL 1,000 mg In 52.242 Empty Bag 1 bag @ Titrate IV .Q0M [facility] Rx#: [id number] Oral 360 Tube Feeding 140 Other 130 Output: Urine 410 505 300 Other: Voiding Method Indwelling Catheter Indwelling Catheter Indwelling Catheter ABP, PAP, CO, CI - Last Documented Arterial Blood Pressure 155/75 - Constitutional General appearance: Present: average body habitus, cooperative, mild distress - EENT EENT Comment(s): Periorbital edema, facial edema ENT: Present: hearing grossly normal - Respiratory Details: audible breath sounds, weak cough Respiratory: bilateral: rhonchi - Cardiovascular Rhythm: regular Heart sounds: normal: S1, S2 - Peripheral edema leg Peripheral Edema: bilateral: None - Gastrointestinal General gastrointestinal: Present: normal bowel sounds, soft - Musculoskeletal Musculoskeletal: Present: generalized weakness - Psychiatric Psychiatric: Present: A&O x's 3, appropriate affect, intact judgment & insight - Labs CBC & Chem 7: 08/05/21 04:05 08/05/21 04:05 Labs: Abnormal Lab Results - Last 24 Hours (Table) 08/05/21 08/05/21 08/06/21 Range/Units 11:48 17:20 00:01 POC Glucose (mg/dL) 119 H 117 H 102 H (75-99) mg/dL 08/06/21 Range/Units 05:17 POC Glucose (mg/dL) 101 H (75-99) mg/dL Microbiology - Last 24 Hours (Table) 08/03/21 08:30 Gram Stain - Final Sputum Sputum Culture - Final Pseudomonas aeruginosa Diane albicans - Imaging and Cardiology Chest x-ray: report reviewed Assessment and Plan (1) Lung cancer Narrative/Plan: NSCLC. Currently on Keytruda. Has done well. No current evidence to suggest disease progressive/recurrence at this time. Will inquire if pleural fluid should be sent for cytology. Pt will f/u with Primary Oncologist prior to resuming IO Current Visit: Yes Status: Chronic Priority: Medium Code(s): C34.90 - MALIGNANT NEOPLASM OF UNSP PART OF UNSP BRONCHUS OR LUNG SNOMED Code(s): 603293725 (2) Oral thrush Narrative/Plan: Nystatin solution to treat. Improving Current Visit: Yes Status: Acute Priority: Medium Code(s): B37.0 - CANDIDAL STOMATITIS SNOMED Code(s): 58860377 Plan: Pulmonary, Critical Care mgmt in ICU.
[2021-08-06 11:50] LABS: Glucose,Whole Blood 100 mg/dL (75-99)
--- NOTE | 2021-08-06 12:47 | P.PN ---
Subjective Progress Note Date: 08/06/21 Principal diagnosis: Acute hypoxic respiratory failure, multifactorial 08/03/2021, the patient is currently in the intensive care unit. The patient got transferred char filter tank tender to the ICU as the patient was having increased shortness of breath. He became progressively more short of breath, lethargic, tachypneic, and he was using excessive muscle breathing. He was placed on a BiPAP and by the time he arrived to the ICU, he was quite somnolent and sleepy and lethargic. At that point, I intubated the patient with him on a mechanical ventilator. The right-sided chest tube was still in place. A chest x-ray was done post intubation showed a right apical pneumothorax. This appears emphysema on the right. ET tube is in a good location. Chest tube is in a good location. There is persistent air leak from the chest tube. there is no interval worsening in the size of the right-sided pneumothorax. Post intubation, the patient was kept on a rate of 24, tidal volume of 300, FiO2 of 100% with a PEEP of 5. Current pulse ox is 90%. Blood pressure is stable with a blood pressure of 90/64. Heart rate is 103, sinus. His, comfortable on propofol which is running at 20 mg/kg per minute. The patient also received a dose of Nimbex 10 mg IV push prior to intubation. The triple-lumen cath was also inserted in the left subclavian. He does have some subcutaneous emphysema along the left chest area.Blood work shows a white cell count of 14.4 with a hemoglobin of 10.9 and a platelet count of 344. His sodium level is at 131, BUN is at 40 with a creatinine of 0.5 from this morning. LFTs are within normal limits. Note that during the intubation process and under direct laryngoscopic evaluation, the patient had some purulent material accumulating in his posterior oropharynx and covering his epiglottis and vocal cords. He is currently on IV cefepime. While on a mechanical ventilator, is particularly pressures around 31. Reevaluated today on 08/04/2021, patient remains in the ICU, intubated and mechanically ventilated. His daughter is at bedside. Patient is on assist control rate of 24 tidal volume is 300 FiO2 50% and PEEP of 5. Peak airway pressure is 24.2 pressures 13. Patient's showed a pO2 of 106 pCO2 49 pH of 7.36, hence cut down his FiO2 to 45%, otherwise no changes in his vent settings. Patient is requiring norepinephrine at 0.12, propofol is at 50 IV fluids at KVO. Chest x-ray showed reexpansion of the right lung, significant subcutaneous emphysema is noted. Remains on antibiotics in the form of cefepime. Patient will be placed on pressure support mode of mechanical ventilation and CPAP if tolerated. However I will try to awaken the patient today, and possibly assess weaning parameters and proceed to weaning mode if possible and if tolerated. In the meantime patient has significant subcu emphysema, and I went ahead and plac ed a 14-gauge angiocatheter in the anterior chest wall for decompression of the subcutaneous emphysema. Patient's acute presentation of respiratory failure seems to be related to underlying COPD, large right-sided pneumothorax requiring chest tube placement, and he has a stage IV non-small cell lung cancer. Patient is on immunotherapy. Labs today were reviewed WBC count is 13.5 hemoglobin 9.7 left lites are normal renal profile is normal Reevaluated today on 08/05/2021, patient remains intubated mechanically ventilated, sedated, he is on assist control rate of 24 tidal volume 300 FiO2 40% PEEP of 5. ABG showed a pO2 of 93 pCO2 of 42 pH of 7.43. Patient remains on enteral tube feeding, he is on vital 1.5 at 50 mL per hour. Patient is on propofol which I placed on hold planning to wean and extubate the patient. He is also on norepinephrine at 0.03 mcg/kg/m. Right-sided chest tube remains in place, no air leak is noted, however the patient seems to be developing worsening subcutaneous emphysema. There is no evidence of pneumothorax. Patient is arousable, follows simple instructions, but intermittently seems to be a bit agitated, hence I started the patient on Precedex, I discontinued his propofol, and I plan to give the patient a weaning trial and hopefully extubate today. Chest x-ray shows right-sided volume loss with multifocal right lung opacities and the right hilar mass like opacity and evidence of subcutaneous emphysema noted WBC count is 13.6 hemoglobin is 9 electrolytes are normal renal profile is normal bicarb is 27 Reevaluated today on 08/06/2021, patient remains in the ICU, he was extubated yesterday, tolerated the extubation well. He is now on 4 L nasal cannula, no major issues over the last 24 hours except he continues to have a chest tube on the right side, positive air leak, and he continues to have significant worsening subcutaneous emphysema. Chest x-ray is basically unchanged. Continues to have significant subcutaneous emphysema, and the findings on the right lung are basically the same. Patient is comfortable, he is not in distress. Afebrile, vital signs are stable. No labs were done today on this patient Objective - Vital Signs Vital signs: Vital Signs Temp 97.8 F 08/06/21 09:00 Pulse 80 08/06/21 11:17 Resp 37 H 08/06/21 10:00 BP 131/88 08/06/21 10:00 Pulse Ox 91 L 08/06/21 10:00 Intake & Output 08/05/21 08/06/21 08/06/21 18:59 06:59 18:59 Intake Total 1599.133 975 300 Output Total 410 505 300 Balance 1189.133 470 0 Intake: IV 900 975 300 Cefepime 2 gm In Sodium 75 Chloride 0.9% 100 ml @ 25 mls/hr IVPB Q8H [facility] Rx#: [id number] Sodium Chloride 0.9% 1, 900 900 300 000 ml @ 75 mls/hr IV . [id number] [facility] Rx#:[id number] Intake, IV Titration 69.133 Amount Dexmedetomidine/0.9% NaCl 0.887 (Pmx) 400 mcg In Empty Bag 1 bag @ 0.2 MCG/KG/HR 2.66 mls/hr IV .Q24H [facility] Rx#:[id number] Norepinephrine 8 mg In 16.004 Sodium Chloride 0.9% 250 ml @ 0.05 MCG/KG/MIN 4. 388 mls/hr IV .Q24H [facility] Rx#:[id number] propofoL 1,000 mg In 52.242 Empty Bag 1 bag @ Titrate IV .Q0M [facility] Rx#: [id number] Oral 360 Tube Feeding 140 Other 130 Output: Urine 410 505 300 Other: Voiding Method Indwelling Catheter Indwelling Catheter Indwelling Catheter ABP, PAP, CO, CI - Last Documented Arterial Blood Pressure 155/75 - Exam GENERAL EXAM: Revealed 56-year-old white male on few liters nasal cannula, not in distress. HEAD: Normocephalic. Atraumatic. HEENT: PERRLA, EOMI, nonicteric, no neck masses, no JVD, subcutaneous emphysema is noted. CHEST: Symmetrical chest expansion, significant subcutaneous emphysema noted in the anterior chest wall area. Crackles at the bases. No rhonchi and no wheezes. Sided chest tube is noted, air leak is noted in the chest tube today. CVS: S1 and S2 normal with no audible murmur, regular rhythm. ABDOMEN: Soft nontender no megaly no rebound no guarding. SPINE: No scoliosis or deformity SKIN: No rashes CENTRAL NERVOUS SYSTEM: No focal deficits, tone is normal in all 4 extremities EXTREMITIES: There is no peripheral edema. No clubbing, no cyanosis. Peripheral pulses are intact. - Labs CBC & Chem 7: 08/05/21 04:05 08/05/21 04:05 Labs: Abnormal Lab Results - Last 24 Hours (Table) 08/05/21 08/06/21 08/06/21 Range/Units 17:20 00:01 05:17 POC Glucose (mg/dL) 117 H 102 H 101 H (75-99) mg/dL 08/06/21 Range/Units 11:38 POC Glucose (mg/dL) 100 H (75-99) mg/dL Microbiology - Last 24 Hours (Table) 08/03/21 08:30 Gram Stain - Final Sputum Sputum Culture - Final Pseudomonas aeruginosa Diane albicans Assessment and Plan Assessment: Acute on chronic hypoxemic respiratory failure , multifactorial as the patient has COPD, lung cancer, and a acute right-sided large pneumothorax. Requiring chest tube placement. Stage IV a poorly differentiated non-small cell lung cancer diagnosed in June of 2020. Recent hospitalization for right lower lobe pneumonia secondary to Pseudomonas discharged on 07/03 Tobacco dependence syndrome. Subcutaneous emphysema secondary to right-sided pneumothorax, status post chest tube insertion. And status post placement of 14-gauge Angiocath in the anterior chest wall area. Recommendation: Patient was extubated on 08/05, tolerated extubation well, he is presently on 3 L nasal cannula. Continue antibiotics/cefepime. Continue bronchodilators and IV Solu-Medrol. However I cut down the dose of Solu-Medrol to 40 mg IV push every 12 hours. Resume diet Continue Lovenox for DVT prophylaxis. Continue IV Protonix. Will monitor the patient in the ICU for the next 24 hours, and possibly transfer out of the ICU tomorrow. Time with Patient: Less than 30
[2021-08-06 15:07] LABS: HGB 9.4 gm/dL (13.0-17.5); Hypochromasia Moderate; MCH 29.1 pg (25.0-35.0); MCHC 31.3 g/dL (31.0-37.0); Mean Platelet Volume 7.5; Platelet Count 267 k/uL (150-450); RBC 3.23 m/uL (4.30-5.90); RDW 15.1 % (11.5-15.5); WBC 7.9 k/uL (3.8-10.6)
[2021-08-06 15:24] LABS: African American GFR (CKD) >90 (>60 ml/min/1.73 sqM); Anion Gap 4 mmol/L; Blood Urea Nitrogen 17 mg/dL (9-20); Calcium 8.2 mg/dL (8.4-10.2); Carbon Dioxide 27 mmol/L (22-30); Chloride 104 mmol/L (98-107); Glucose 103 mg/dL (74-99); Non-African American GFR(CKD) >90 (>60 ml/min/1.73 sqM); Potassium 3.7 mmol/L (3.5-5.1); Sodium 135 mmol/L (137-145)
[2021-08-06] MEDS ORDERED: FUROSEMIDE 10 MG/ML 4 ML VIAL IV STA (17:22)
--- NOTE | 2021-08-06 19:36 | P.PN ---
Progress Note - Text Progress Note Date: 08/06/21 Chief Complaint: Cough with sputum History of presenting complaint: This is a very pleasant 56-year-old patient of Dr. Cabello. followed by Dr. Saleem of the air drill operator, Dr. Daniel the oncologist and Dr. Floyd Medina from radiation oncology. Diagnosis of with lung cancer. Has only had radiation treatment and chemotherapy. Currently getting immunotherapy. For about a week patient been having increasing amount of cough. Bringing up some green yellow and bloody sputum. Appetite has been poor. Bowels are okay. At home uses 3 L of oxygen. Has been having weight loss. Significantly short of breath and some wheezing. Tired rundown. In the ER the patient was found to have a large sided pneumothorax. 13[place] Thora-vent was placed by ER physician. Repeat chest x-ray showed continued pneumothorax. Patient is put on suction for about an hour and subsequent x-ray showed improvement. This morning patient still short of breath but slightly better. Tired. Continues to have his chronic low back pain which is significant July 31: Patient has some pneumothorax on the right side. Some air leak. Subcutaneous emphysema. Given his immunosuppressed state steroids discontinued by pulmonary. Patient's breathing a bit better today. Congested cough. Eating some. Tired. Short of breath. IV cefepime August 01: Dr. Holley detected Thora-vent and flushed the catheter./The tubing. Tubing was replaced. Congested cough continues. Oral intake fair. Diet. 4 L nasal cannula. Propped up in bed. August 02: Because of persistent pneumothorax and increasing subcu to [address] Holley discontinued the Thora-vent and placed a right-sided chest tube. Oral intake fair. On 4 L nasal cannula. August 03: ICU: This morning patient became more short of breath. Brought to the ICU. Intubated. Drips include norepinephrine, propofol. Patient sedated. Ventilator: FiO2 60% and a PEEP of 5. Sinus rhythm. Discussed with daughter the bedside. August 04: ICU. Ventilator: 50/5. Telemetry: Sinus rhythm. Intubated. Sedated. Drips include IV propofol and norepinephrine. Subcutaneous emphysema present. Discussed with daughter the bedside. August 05: ICU. Patient was extubated earlier today. On nasal cannula. 5 L. Right-sided chest tube. Sinus tachycardia. Daughter the bedside. Awake answering questions. Subcutis emphysema significant. Short of breath. August 06: ICU. On 5 L of nasal cannula. Significant subcutaneous emphysema. Now has gone to the face. Some sinus tachycardia. Right-sided chest tube. Eating some. Spoke to the patient and daughter the bedside. Active Medications Acetaminophen (Acetaminophen Tab 325 Mg Tab) 650 mg PO Q6HR PRN PRN Reason: Mild Pain or Fever > 100.5 Albuterol/Ipratropium (Ipratropium-Albuterol 3 Ml Neb) 3 ml INHALATION RT-QID [facility] Last Admin: 08/06/21 15:39 Dose: 3 ml Documented by: Albuterol/Ipratropium (Ipratropium-Albuterol 3 Ml Neb) 3 ml INHALATION RT-Q2H PRN PRN Reason: Shortness Of Breath Or Wheezing Cholestyramine Resin (Cholestyramine (With Sugar) 4 Gm Packet) 4 gm PO DAILY PRN PRN Reason: Diarrhea Enoxaparin Sodium (Enoxaparin 40 Mg/0.4 Ml Syringe) 40 mg SQ DAILY [facility] Last Admin: 08/06/21 08:53 Dose: 40 mg Documented by: Fentanyl (Fentanyl 100mcg/Hr Patch) 1 patch TRANSDERM Q72H [facility]; Protocol Last Admin: 08/04/21 23:46 Dose: 1 patch Documented by: Folic Acid (Folic Acid 1 Mg Tab) 1 mg PO DAILY@1200 [facility] Last Admin: 08/06/21 11:26 Dose: 1 mg Documented by: Gabapentin (Gabapentin 300 Mg Cap) 300 mg PO HS [facility] Last Admin: 08/05/21 22:07 Dose: Not Given Documented by: Guaifenesin (Guaifenesin 600 Mg Tablet.Er) 600 mg PO Q12HR [facility] Last Admin: 08/06/21 08:54 Dose: 600 mg Documented by: Hydromorphone HCl (Hydromorphone 1 Mg/Ml 1 Ml Syringe) 1 mg IVP Q4HR PRN PRN Reason: severe Pain Last Admin: 08/06/21 13:55 Dose: 1 mg Documented by: Cefepime HCl 2 gm/ Sodium (Chloride) 100 mls @ 25 mls/hr IVPB Q8H [facility] Last Admin: 08/06/21 11:26 Dose: 25 mls/hr Documented by: Sodium Chloride (Saline 0.9%) 1,000 mls @ 75 mls/hr IV .[id number] [facility] Last Admin: 08/06/21 15:41 Dose: 75 mls/hr Documented by: Norepinephrine Bitartrate 8 mg (/ Sodium Chloride) 258 mls @ 4.388 mls/hr IV .Q24H [facility]; Protocol Last Admin: 08/06/21 09:06 Dose: Not Given Documented by: Dexmedetomidine HCl 400 mcg/ (IV Solution) 100 mls @ 2.66 mls/hr IV .Q24H [facility]; Protocol Last Titration: 08/06/21 17:05 Dose: 0 mcg/kg/hr, 0 mls/hr Documented by: Ketorolac Tromethamine (Ketorolac 30 Mg/Ml 1 Ml Vial) 15 mg IVP Q6HR [facility] Stop: 08/07/21 12:01 Last Admin: 08/06/21 17:28 Dose: 15 mg Documented by: Magnesium Oxide (Magnesium Oxide 400 Mg Tab) 400 mg PO HS [facility] Last Admin: 08/05/21 21:48 Dose: Not Given Documented by: Melatonin (Melatonin 3 Mg Tablet) 3 mg PO HS PRN PRN Reason: Insomnia Methylprednisolone Sodium Succinate (Methylprednisolone Sod Succi 40 Mg/Ml 1 Ml Vial) 40 mg IV Q12HR [facility] Metoclopramide HCl (Metoclopramide 5 Mg Tab) 5 mg PO TID PRN PRN Reason: Nausea Multivitamins (Multivitamins, Thera 1 Each Tab) 1 each PO DAILY@1200 [facility] Last Admin: 08/06/21 11:26 Dose: 1 each Documented by: Naloxone HCl (Naloxone 0.4 Mg/Ml 1 Ml Vial) 0.2 mg IV Q2M PRN PRN Reason: Opioid Reversal Nystatin (Nystatin 100,000 Unit/Ml Susp 500,000 Unit/5 Ml Cup) 500,000 unit PO QID [facility] Last Admin: 08/06/21 17:29 Dose: 500,000 unit Documented by: Ondansetron HCl (Ondansetron Odt 4 Mg Tab) 4 mg PO Q6H PRN PRN Reason: Nausea And Vomiting Last Admin: 08/01/21 21:04 Dose: 4 mg Documented by: Oxycodone HCl (Oxycodone Hcl 5 Mg Tab) 10 mg PO Q4H PRN PRN Reason: Moderate Pain Last Admin: 08/05/21 14:42 Dose: 10 mg Documented by: Pantoprazole Sodium (Pantoprazole 40 Mg Tablet) 40 mg PO DAILY [facility] Last Admin: 08/06/21 08:54 Dose: 40 mg Documented by: Paroxetine HCl (Paroxetine 20 Mg Tab) 20 mg PO HS [facility] Last Admin: 08/05/21 21:59 Dose: 20 mg Documented by: Polyethylene Glycol (Polyethylene Glycol 3350 17 Gm Powd.Pack) 17 gm PO DAILY PRN PRN Reason: Constipation Senna/Docusate Sodium (Sennosides-Docusate Sodium 1 Each Tab) 2 each PO BID [facility] Last Admin: 08/06/21 08:53 Dose: 2 each Documented by: Thiamine HCl (Thiamine 100 Mg Tab) 100 mg PO DAILY@1200 [facility] Last Admin: 08/06/21 11:26 Dose: 100 mg Documented by: Past medical history to include: Lung cancer, COPD, GERD, Social history: Patient smoked a pack a day for about 37 years, stopped around 2018. Used to work in a [employer]. 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 Lives with daughter. No alcohol. Family history: Lung cancer Physical examination: VITAL SIGNS: 98.2, 90, 27, 150/93, 88% on 5 L GENERAL: Awake short of breath.. [ Loss of muscle mass and subcutaneous fat]. Right-sided chest tube. Worsening Subcutaneous emphysema EYES: Pupils equal. Conjunctiva pale HEENT: External appearance of nose and ears normal, oral cavity grossly normal. Face more puffy NECK: JVD unable to assess; masses not palpable. HEART: First and second heart sounds are normal; no edema. LUNGS: Respiratory rate increased diminished breath sounds prolonged expiration. Right-sided chest tube. Subcutaneous emphysema. ABDOMEN: Soft, nontender, liver spleen not palpable, no masses palpable. PSYCH: Awake, answering questions MUSCULOSKELETAL:No Clubbing/cyanosis;muscles-grossly intact. Evidence of OA INVESTIGATIONS, reviewed in the clinical context: August 06: White count 7.9 hemoglobin 9.4 potassium 3.7 creatinine 0.36. Chest x-ray: Worsening subcutaneous emphysema August 05: White count 13.6 hemoglobin 9 platelets 456 potassium 5 BUN 25 creatinine 0.5 for August 04: White count 13.5 hemoglobin 9.7 platelets were 85 potassium 4.6 creatinine 0.49 August 03: White count 14.4 hemoglobin 10.9 platelets 344 ABGs noted. Sodium 131 potassium 4.2 creatinine 0.5. Chest x-ray film: Pneumothorax minimal. Chest tube. Subcutaneous emphysema. Obesity right upper lobe. August 02: White count 9.7 hemoglobin 10.7 sodium 128 potassium 3.6 creatinine 0.45 August 01: White count 7.60 globin 10.2 albumin 2.9 Chest x-ray film personally reviewed by me [July 31]: Infiltrate. Some right-sided pneumothorax White count 8.3 hemoglobin 11.2 platelets 399 sodium 131 potassium 4.1 bicarb 32 BUN 14 creatinine 0.5 to EKG tracing personally reviewed by me-normal sinus rhythm. P pulmonale. T wave changes. Admission labs: Sodium 1:30 albumin 2.9 white count 13.4 hemoglobin 11 Chest x-ray film personally reviewed by [id number] pneumothorax. Right upper lobe mass Assessment and plan: -Right-sided pneumothorax, treated with Thora-vent in the ER. Chest tube placed on August 02. Miah suction -acute COPD exacerbation in a previous smoker.: Slow to respond DuoNeb. IV Solu-Medrol 40 mg every 6 -Acute hypoxic respiratory failure from pneumothorax and pneumonia: Slow to respond intubated on the ventilator August 03. Extubated August 05. Currently 6 L nasal cannula -Subcutaneous emphysema: Worsening -Chronic hypoxic respiratory failure from underlying COPD 2-3 L of oxygen at home -Hyponatremia from decreased oral intake: -Septic shock: Improved IV levo fed discontinued -Suspect underlying pneumonia with gram-negative organism Cefepime 2 g every 8 -Lung cancer with metastatic disease status post chemotherapy and radiation treatment. Currently on immunotherapy. -Anxiety not otherwise specified Paxil 20 mg daily at bedtime -Anorexia secondary to underlying malignancy Encourage oral intake -Severe protein calorie malnutrition from decreased oral intake from underlying malignancy Ensure. Dietitian. -GERD Protonix -Chronic Back pain from malignancy Duragesic patch 100 g, oxycodone 10 mg every 4 when necessary -Full code IV cefepime. DuoNeb. right-sided chest tube . Worsening subcu to his emphysema. 5-6 L of nasal cannula. Follow with pulmonary.
[2021-08-06] MEDS: PARoxetine 20 MG TAB PO SCH (20:21)
[2021-08-06] MEDS: GABAPENTIN 300 MG CAP PO SCH (20:21)
[2021-08-06] MEDS: MAGNESIUM OXIDE 400 MG TAB PO SCH (20:21)
[2021-08-06] MEDS: LORazepam 2 MG/ML INJ IV PRN (23:08)
[2021-08-07] MEDS: KETOROLAC 30 MG/ML 1 ML VIAL IVP SCH ×3 (01:00→12:05)
[2021-08-07] MEDS: HYDROmorphone 1 MG/ML 1 ML SYRINGE IVP PRN ×7 (01:26→21:30)
[2021-08-07] MEDS: LORazepam 2 MG/ML INJ IV PRN ×3 (03:53→20:09)
[2021-08-07] MEDS: CEFEPIME 2 GM in SODIUM CHLORIDE 0.9% 100 ML IVPB SCH ×3 (05:31→20:07)
[2021-08-07] MEDS: SODIUM CHLORIDE 0.9% 1,000 ML IV SCH (07:16)
[2021-08-07] MEDS: IPRATROPIUM-ALBUTEROL 3 ML NEB INHALATION SCH ×4 (07:23→21:39)
--- NOTE | 2021-08-07 08:20 | XR ---
EXAMINATION TYPE: XR chest 1V portable DATE OF EXAM: 08/07/2021 CLINICAL HISTORY: Difficulty breathing progress study. TECHNIQUE: Single AP portable upright view of the chest is obtained. COMPARISON: Chest x-ray from one day earlier and older studies. FINDINGS: Stable right subclavian central venous catheter. Stable right basilar chest tube. Background chronic emphysematous change is redemonstrated. Cardiac s ilhouette size stable and within normal limits. Chronic right-sided volume loss redemonstrated. Persi stent overlying subcutaneous emphysema. No visualized right-sided pneumothorax currently. Increased m ultifocal opacities in the right lung remain present. Osseous structures remain intact. Chronic right hilar masslike opacity. There is right midlung thin-walled cyst or cystic lesion redemonstrated. Lef t lung shows developing basilar opacity. Pneumoperitoneum is likely present. IMPRESSION: Persistent overlying subcutaneous emphysema. No visualized right-sided pneumothorax with chest tube in place. Right-sided volume loss with multifocal right lung opacities and right hilar mas slike opacity. Right mid to lower lung thin walled cyst. These findings are all stable. Developing le ft basilar acute atelectasis and/or infiltrate is noted.
[2021-08-07] MEDS: methylPREDNISolone SOD SUCCI 40 MG/ML 1 ML VIAL IV SCH ×2 (08:23→20:06)
[2021-08-07] MEDS: guaiFENesin 600 MG TABLET.ER PO SCH ×2 (08:23→20:05)
[2021-08-07] MEDS: ENOXAPARIN 40 MG/0.4 ML SYRINGE SQ SCH (08:23)
[2021-08-07] MEDS: NYSTATIN 100,000 UNIT/ML SUSP 500,000 UNIT/5 ML CUP PO SCH ×4 (08:23→21:28)
[2021-08-07] MEDS: PANTOPRAZOLE 40 MG TABLET PO SCH (08:23)
[2021-08-07] MEDS: SENNOSIDES-DOCUSATE SODIUM 1 EACH TAB PO SCH ×2 (08:23→20:06)
[2021-08-07] MEDS: NOREPINEPHRINE 8 MG in SODIUM CHLORIDE 0.9% 250 ML IV SCH (08:24)
[2021-08-07 08:55] LABS: Basophils % (A) 0 %; Eosinophils % (A) 0 %; HCT 34.6 % (39.0-53.0); HGB 10.8 gm/dL (13.0-17.5); Hypochromasia Moderate; Lymphocytes # (A) 0.3 k/uL (1.0-4.8); Lymphocytes % (A) 3 %; MCHC 31.4 g/dL (31.0-37.0); MCV 92.5 fL (80.0-100.0); Mean Platelet Volume 7.3; Monocytes # (A) 0.3 k/uL (0-1.0); Monocytes % (A) 3 %; Neutrophils # (A) 9.4 k/uL (1.3-7.7); Neutrophils % (A) 93 %; Platelet Count 291 k/uL (150-450); RBC 3.74 m/uL (4.30-5.90); RDW 15.7 % (11.5-15.5); WBC 10.1 k/uL (3.8-10.6)
[2021-08-07 09:24] LABS: ALT 11 U/L (4-49); AST 27 U/L (17-59); African American GFR (CKD) >90 (>60 ml/min/1.73 sqM); Albumin 2.4 g/dL (3.5-5.0); Alkaline Phosphatase 60 U/L (38-126); Anion Gap 2 mmol/L; Blood Urea Nitrogen 17 mg/dL (9-20); Calcium 8.4 mg/dL (8.4-10.2); Carbon Dioxide 32 mmol/L (22-30); Chloride 101 mmol/L (98-107); Glucose 86 mg/dL (74-99); Non-African American GFR(CKD) >90 (>60 ml/min/1.73 sqM); Potassium 3.8 mmol/L (3.5-5.1); Sodium 135 mmol/L (137-145); Total Bilirubin 0.5 mg/dL (0.2-1.3); Total Protein 5.2 g/dL (6.3-8.2)
[2021-08-07] MEDS: THIAMINE 100 MG TAB PO SCH (12:05)
[2021-08-07] MEDS: MULTIVITAMINS, THERA 1 EACH TAB PO SCH (12:05)
[2021-08-07] MEDS: FOLIC ACID 1 MG TAB PO SCH (12:05)
--- NOTE | 2021-08-07 12:20 | P.PN ---
Subjective Progress Note Date: 08/07/21 Principal diagnosis: Resp failure, NSCLC In f/u today pt has much less periorbital and facial edema, he is smiling under the bipap, he can talk, he states he feels better then yesterday. Objective - Vital Signs Vital signs: Vital Signs Temp 97.7 F 08/07/21 08:00 Pulse 105 H 08/07/21 11:49 Resp 22 08/07/21 11:49 BP 108/87 08/07/21 05:00 Pulse Ox 90 L 08/07/21 11:00 Intake & Output 08/06/21 08/07/21 08/07/21 18:59 06:59 18:59 Intake Total 968.857 240 280 Output Total 3000 1480 200 Balance -2031.143 -1240 80 Weight 53.2 kg Intake: IV 865 240 60 Sodium Chloride 0.9% 1, 865 240 60 000 ml @ 75 mls/hr IV . [id number] [facility] Rx#:[id number] Intake, IV Titration 3.857 Amount Dexmedetomidine/0.9% NaCl 3.857 (Pmx) 400 mcg In Empty Bag 1 bag @ 0.2 MCG/KG/HR 2.66 mls/hr IV .Q24H [facility] Rx#:[id number] Oral 220 Lipid 100 Cefepime 2 gm In Sodium 100 Chloride 0.9% 100 ml @ 25 mls/hr IVPB Q8H [facility] Rx#: [id number] Output: Chest Tube Drainage 50 Chest Tube Right Anterior 50 Chest Urine 3000 1430 200 Other: Voiding Method Indwelling Catheter Indwelling Catheter Indwelling Catheter ABP, PAP, CO, CI - Last Documented Arterial Blood Pressure 146/72 - Constitutional General appearance: Present: cooperative, no acute distress, thin - EENT EENT Comment(s): periorbital edema is better, facial swelling improved Eyes: Present: anicteric sclerae, EOMI ENT: Present: hearing grossly normal - Respiratory Respiratory: bilateral: diminished - Cardiovascular Heart sounds: normal: S1, S2 - Gastrointestinal General gastrointestinal: Present: normal bowel sounds, soft - Integumentary Integumentary: Present: pale - Neurologic Neurologic: Present: CNII-XII intact - Musculoskeletal Musculoskeletal: Present: generalized weakness - Psychiatric Psychiatric: Present: A&O x's 3, appropriate affect, intact judgment & insight - Labs CBC & Chem 7: 08/07/21 08:25 02 08:25 Labs: Abnormal Lab Results - Last 24 Hours (Table) 08/06/21 08/06/21 08/07/21 Range/Units 14:30 14:30 08:25 RBC 3.23 L 3.74 L (4.30-5.90) m/uL Hgb 9.4 L 10.8 L (13.0-17.5) gm/dL Hct 30.0 L 34.6 L (39.0-53.0) % RDW 15.7 H (11.5-15.5) % Neutrophils # 9.4 H (1.3-7.7) k/uL Lymphocytes # 0.3 L (1.0-4.8) k/uL Sodium 135 L (137-145) mmol/L Carbon Dioxide (22-30) mmol/L Creatinine 0.36 L (0.66-1.25) mg/dL Glucose 103 H (74-99) mg/dL Calcium 8.2 L (8.4-10.2) mg/dL Total Protein (6.3-8.2) g/dL Albumin (3.5-5.0) g/dL 08/07/21 Range/Units 08:25 RBC (4.30-5.90) m/uL Hgb (13.0-17.5) gm/dL Hct (39.0-53.0) % RDW (11.5-15.5) % Neutrophils # (1.3-7.7) k/uL Lymphocytes # (1.0-4.8) k/uL Sodium 135 L (137-145) mmol/L Carbon Dioxide 32 H (22-30) mmol/L Creatinine 0.37 L (0.66-1.25) mg/dL Glucose (74-99) mg/dL Calcium (8.4-10.2) mg/dL Total Protein 5.2 L (6.3-8.2) g/dL Albumin 2.4 L (3.5-5.0) g/dL - Imaging and Cardiology Chest x-ray: report reviewed Assessment and Plan (1) Lung cancer Narrative/Plan: NSCLC. Currently on Keytruda. Has done well. No current evidence to suggest disease progressive/recurrence at this time. Pt will f/u with Primary Oncologist prior to resuming IO Current Visit: Yes Status: Chronic Priority: Medium Code(s): C34.90 - MALIGNANT NEOPLASM OF UNSP PART OF UNSP BRONCHUS OR LUNG SNOMED Code(s): 795403416 (2) Oral thrush Narrative/Plan: Nystatin solution to treat. Current Visit: Yes Status: Acute Priority: Medium Code(s): B37.0 - CANDIDAL STOMATITIS SNOMED Code(s): 74883520 Plan: Pulmonary, Critical Care mgmt in ICU.
--- NOTE | 2021-08-07 12:29 | P.PN ---
Subjective Progress Note Date: 08/07/21 Principal diagnosis: Acute hypoxic respiratory failure, multifactorial 08/03/2021, the patient is currently in the intensive care unit. The patient got transferred [facility] to the ICU as the patient was having increased shortness of breath. He became progressively more short of breath, lethargic, tachypneic, and he was using excessive muscle breathing. He was placed on a BiPAP and by the time he arrived to the ICU, he was quite somnolent and sleepy and lethargic. At that point, I intubated the patient with him on a mechanical ventilator. The right-sided chest tube was still in place. A chest x-ray was done post intubation showed a right apical pneumothorax. This appears emphysema on the right. ET tube is in a good location. Chest tube is in a good location. There is persistent air leak from the chest tube. there is no interval worsening in the size of the right-sided pneumothorax. Post intubation, the patient was kept on a rate of 24, tidal volume of 300, FiO2 of 100% with a PEEP of 5. Current pulse ox is 90%. Blood pressure is stable with a blood pressure of 90/64. Heart rate is 103, sinus. His, comfortable on propofol which is running at 20 mg/kg per minute. The patient also received a dose of Nimbex 10 mg IV push prior to intubation. The triple-lumen cath was also inserted in the left subclavian. He does have some subcutaneous emphysema along the left chest area.Blood work shows a white cell count of 14.4 with a hemoglobin of 10.9 and a platelet count of 344. His sodium level is at 131, BUN is at 40 with a creatinine of 0.5 from this morning. LFTs are within normal limits. Note that during the intubation process and under direct laryngoscopic evaluation, the patient had some purulent material accumulating in his posterior oropharynx and covering his epiglottis and vocal cords. He is currently on IV cefepime. While on a mechanical ventilator, is particularly pressures around 31. Reevaluated today on 08/04/2021, patient remains in the ICU, intubated and mechanically ventilated. His daughter is at bedside. Patient is on assist control rate of 24 tidal volume is 300 FiO2 50% and PEEP of 5. Peak airway pressure is 24.2 pressures 13. Patient's showed a pO2 of 106 pCO2 49 pH of 7.36, hence cut down his FiO2 to 45%, otherwise no changes in his vent settings. Patient is requiring norepinephrine at 0.12, propofol is at 50 IV fluids at KVO. Chest x-ray showed reexpansion of the right lung, significant subcutaneous emphysema is noted. Remains on antibiotics in the form of cefepime. Patient will be placed on pressure support mode of mechanical ventilation and CPAP if tolerated. However I will try to awaken the patient today, and possibly assess weaning parameters and proceed to weaning mode if possible and if tolerated. In the meantime patient has significant subcu emphysema, and I went ahead and plac ed a 14-gauge angiocatheter in the anterior chest wall for decompression of the subcutaneous emphysema. Patient's acute presentation of respiratory failure seems to be related to underlying COPD, large right-sided pneumothorax requiring chest tube placement, and he has a stage IV non-small cell lung cancer. Patient is on immunotherapy. Labs today were reviewed WBC count is 13.5 hemoglobin 9.7 left lites are normal renal profile is normal Reevaluated today on 08/05/2021, patient remains intubated mechanically ventilated, sedated, he is on assist control rate of 24 tidal volume 300 FiO2 40% PEEP of 5. ABG showed a pO2 of 93 pCO2 of 42 pH of 7.43. Patient remains on enteral tube feeding, he is on vital 1.5 at 50 mL per hour. Patient is on propofol which I placed on hold planning to wean and extubate the patient. He is also on norepinephrine at 0.03 mcg/kg/m. Right-sided chest tube remains in place, no air leak is noted, however the patient seems to be developing worsening subcutaneous emphysema. There is no evidence of pneumothorax. Patient is arousable, follows simple instructions, but intermittently seems to be a bit agitated, hence I started the patient on Precedex, I discontinued his propofol, and I plan to give the patient a weaning trial and hopefully extubate today. Chest x-ray shows right-sided volume loss with multifocal right lung opacities and the right hilar mass like opacity and evidence of subcutaneous emphysema noted WBC count is 13.6 hemoglobin is 9 electrolytes are normal renal profile is normal bicarb is 27 Reevaluated today on 08/06/2021, patient remains in the ICU, he was extubated yesterday, tolerated the extubation well. He is now on 4 L nasal cannula, no major issues over the last 24 hours except he continues to have a chest tube on the right side, positive air leak, and he continues to have significant worsening subcutaneous emphysema. Chest x-ray is basically unchanged. Continues to have significant subcutaneous emphysema, and the findings on the right lung are basically the same. Patient is comfortable, he is not in distress. Afebrile, vital signs are stable. No labs were done today on this patient Reevaluated today on 08/07/2021, remains in the ICU, patient has been tolerating the extubation well for the last few days, however he remains marginal at best. Patient had to be placed back on BiPAP yesterday, he is requiring intermittent Dilaudid and Ativan to keep him calm. Overall not much of a change except he is off mechanical ventilation, continues to have significant subcutaneous emphysema but improving. When off BiPAP, the patient is on 15 L high flow cannula. He is off Precedex today. But again requiring Ativan and Dilaudid. Has been alternating between high flow cannula and BiPAP. WBC count today is 10 hemoglobin is 10.8 electrolytes are normal renal profile is normal, chest x-ray continues to show subcutaneous emphysema no visualized the right-sided pneumothorax, right-sided chest tube in place, I don't even see a leak this morning on the chest tube Pleur-evac. Objective - Vital Signs Vital signs: Vital Signs Temp 97.7 F 08/07/21 08:00 Pulse 105 H 08/07/21 11:49 Resp 22 08/07/21 11:49 BP 108/87 08/07/21 05:00 Pulse Ox 90 L 08/07/21 11:00 Intake & Output 08/06/21 08/07/21 08/07/21 18:59 06:59 18:59 Intake Total 968.857 240 280 Output Total 3000 1480 200 Balance -2031.143 -1240 80 Weight 53.2 kg Intake: IV 865 240 60 Sodium Chloride 0.9% 1, 865 240 60 000 ml @ 75 mls/hr IV . [id number] [facility] Rx#:[id number] Intake, IV Titration 3.857 Amount Dexmedetomidine/0.9% NaCl 3.857 (Pmx) 400 mcg In Empty Bag 1 bag @ 0.2 MCG/KG/HR 2.66 mls/hr IV .Q24H [facility] Rx#:[id number] Oral 220 Lipid 100 Cefepime 2 gm In Sodium 100 Chloride 0.9% 100 ml @ 25 mls/hr IVPB Q8H [facility] Rx#: [id number] Output: Chest Tube Drainage 50 Chest Tube Right Anterior 50 Chest Urine 3000 1430 200 Other: Voiding Method Indwelling Catheter Indwelling Catheter Indwelling Catheter ABP, PAP, CO, CI - Last Documented Arterial Blood Pressure 146/72 - Exam GENERAL EXAM: Revealed 56-year-old white male on high flow nasal cannula at 15 L. HEAD: Normocephalic. Atraumatic. HEENT: PERRLA, EOMI, nonicteric, no neck masses, no JVD, subcutaneous emphysema is noted. CHEST: Symmetrical chest expansion, significant subcutaneous emphysema noted in the anterior chest wall area. Crackles at the bases. No rhonchi and no wheezes. Sided chest tube is noted, air leak is noted in the chest tube today. CVS: S1 and S2 normal with no audible murmur, regular rhythm. ABDOMEN: Soft nontender no megaly no rebound no guarding. SPINE: No scoliosis or deformity SKIN: No rashes CENTRAL NERVOUS SYSTEM: No focal deficits, tone is normal in all 4 extremities EXTREMITIES: There is no peripheral edema. No clubbing, no cyanosis. Peripheral pulses are intact. - Labs CBC & Chem 7: 08/07/21 08:25 08/07/21 08:25 Labs: Abnormal Lab Results - Last 24 Hours (Table) 08/06/21 08/06/21 08/07/21 Range/Units 14:30 14:30 08:25 RBC 3.23 L 3.74 L (4.30-5.90) m/uL Hgb 9.4 L 10.8 L (13.0-17.5) gm/dL Hct 30.0 L 34.6 L (39.0-53.0) % RDW 15.7 H (11.5-15.5) % Neutrophils # 9.4 H (1.3-7.7) k/uL Lymphocytes # 0.3 L (1.0-4.8) k/uL Sodium 135 L (137-145) mmol/L Carbon Dioxide (22-30) mmol/L Creatinine 0.36 L (0.66-1.25) mg/dL Glucose 103 H (74-99) mg/dL Calcium 8.2 L (8.4-10.2) mg/dL Total Protein (6.3-8.2) g/dL Albumin (3.5-5.0) g/dL 08/07/21 Range/Units 08:25 RBC (4.30-5.90) m/uL Hgb (13.0-17.5) gm/dL Hct (39.0-53.0) % RDW (11.5-15.5) % Neutrophils # (1.3-7.7) k/uL Lymphocytes # (1.0-4.8) k/uL Sodium 135 L (137-145) mmol/L Carbon Dioxide 32 H (22-30) mmol/L Creatinine 0.37 L (0.66-1.25) mg/dL Glucose (74-99) mg/dL Calcium (8.4-10.2) mg/dL Total Protein 5.2 L (6.3-8.2) g/dL Albumin 2.4 L (3.5-5.0) g/dL Assessment and Plan Assessment: Acute on chronic hypoxemic respiratory failure , multifactorial as the patient has COPD, lung cancer, and a acute right-sided large pneumothorax. Requiring chest tube placement. Stage IV a poorly differentiated non-small cell lung cancer diagnosed in June of 2020. Recent hospitalization for right lower lobe pneumonia secondary to Pseudomonas discharged on 07/03 Tobacco dependence syndrome. Subcutaneous emphysema secondary to right-sided pneumothorax, status post chest tube insertion. And status post placement of 14-gauge Angiocath in the anterior chest wall area. Recommendation: Continue to monitor the patient in the ICU. Patient was extubated on 08/05, tolerated extubation well, however the patient is requiring placement on BiPAP intermittently and requiring sedation frequently. Continue antibiotics/cefepime. Continue bronchodilators and IV Solu-Medrol. Continue Lovenox for DVT prophylaxis. Continue IV Protonix. keep patient in the ICU for now, patient is marginal at best. Time with Patient: Less than 30
[2021-08-07] MEDS: DEXMEDETOMIDINE/0.9% NACL(PMX) 400 MCG in EMPTY BAG 1 BAG IV SCH (15:09)
--- NOTE | 2021-08-07 18:44 | P.PN ---
Progress Note - Text Progress Note Date: 08/07/21 Chief Complaint: Cough with sputum History of presenting complaint: This is a very pleasant 56-year-old patient of Dr. Cabello. followed by Dr. Saleem of the dot compliance specialist, Dr. Daniel the oncologist and Dr. Floyd Medina from radiation oncology. Diagnosis of with lung cancer. Has only had radiation treatment and chemotherapy. Currently getting immunotherapy. For about a week patient been having increasing amount of cough. Bringing up some green yellow and bloody sputum. Appetite has been poor. Bowels are okay. At home uses 3 L of oxygen. Has been having weight loss. Significantly short of breath and some wheezing. Tired rundown. In the ER the patient was found to have a large sided pneumothorax. 13-Ukrainian Thora-vent was placed by ER physician. Repeat chest x-ray showed continued pneumothorax. Patient is put on suction for about an hour and subsequent x-ray showed improvement. This morning patient still short of breath but slightly better. Tired. Continues to have his chronic low back pain which is significant July 31: Patient has some pneumothorax on the right side. Some air leak. Subcutaneous emphysema. Given his immunosuppressed state steroids discontinued by pulmonary. Patient's breathing a bit better today. Congested cough. Eating some. Tired. Short of breath. IV cefepime August 01: Dr. Holley detected Thora-vent and flushed the catheter./The tubing. Tubing was replaced. Congested cough continues. Oral intake fair. Diet. 4 L nasal cannula. Propped up in bed. August 02: Because of persistent pneumothorax and increasing subcu to [address] Holley discontinued the Thora-vent and placed a right-sided chest tube. Oral intake fair. On 4 L nasal cannula. August 03: ICU: This morning patient became more short of breath. Brought to the ICU. Intubated. Drips include norepinephrine, propofol. Patient sedated. Ventilator: FiO2 60% and a PEEP of 5. Sinus rhythm. Discussed with daughter the bedside. August 04: ICU. Ventilator: 50/5. Telemetry: Sinus rhythm. Intubated. Sedated. Drips include IV propofol and norepinephrine. Subcutaneous emphysema present. Discussed with daughter the bedside. August 05: ICU. Patient was extubated earlier today. On nasal cannula. 5 L. Right-sided chest tube. Sinus tachycardia. Daughter the bedside. Awake answering questions. Subcutis emphysema significant. Short of breath. August 06: ICU. On 5 L of nasal cannula. Significant subcutaneous emphysema. Now has gone to the face. Some sinus tachycardia. Right-sided chest tube. Eating some. Spoke to the patient and daughter the bedside. August 07: ICU. On 12 L high flow nasal cannula. Alternating between BiPAP. Subcutis emphysema. Eating about 25%. Daughter the bedside. Right chest tube in place. Active Medications Acetaminophen (Acetaminophen Tab 325 Mg Tab) 650 mg PO Q6HR PRN PRN Reason: Mild Pain or Fever > 100.5 Albuterol/Ipratropium (Ipratropium-Albuterol 3 Ml Neb) 3 ml INHALATION RT-QID [facility] Last Admin: 08/07/21 15:14 Dose: 3 ml Documented by: Albuterol/Ipratropium (Ipratropium-Albuterol 3 Ml Neb) 3 ml INHALATION RT-Q2H PRN PRN Reason: Shortness Of Breath Or Wheezing Cholestyramine Resin (Cholestyramine (With Sugar) 4 Gm Packet) 4 gm PO DAILY PRN PRN Reason: Diarrhea Enoxaparin Sodium (Enoxaparin 40 Mg/0.4 Ml Syringe) 40 mg SQ DAILY [facility] Last Admin: 08/07/21 08:23 Dose: 40 mg Documented by: Fentanyl (Fentanyl 100mcg/Hr Patch) 1 patch TRANSDERM Q72H [facility]; Protocol Last Admin: 08/04/21 23:46 Dose: 1 patch Documented by: Folic Acid (Folic Acid 1 Mg Tab) 1 mg PO DAILY@1200 [facility] Last Admin: 08/07/21 12:05 Dose: 1 mg Documented by: Gabapentin (Gabapentin 300 Mg Cap) 300 mg PO HS [facility] Last Admin: 08/06/21 20:21 Dose: 300 mg Documented by: Guaifenesin (Guaifenesin 600 Mg Tablet.Er) 600 mg PO Q12HR [facility] Last Admin: 08/07/21 08:23 Dose: 600 mg Documented by: Hydromorphone HCl (Hydromorphone 1 Mg/Ml 1 Ml Syringe) 1 mg IVP Q3HR PRN PRN Reason: severe Pain Last Admin: 08/07/21 18:30 Dose: 1 mg Documented by: Cefepime HCl 2 gm/ Sodium (Chloride) 100 mls @ 25 mls/hr IVPB Q8H [facility] Last Admin: 08/07/21 12:05 Dose: 25 mls/hr Documented by: Norepinephrine Bitartrate 8 mg (/ Sodium Chloride) 258 mls @ 4.388 mls/hr IV .Q24H [facility]; Protocol Last Admin: 08/07/21 08:24 Dose: Not Given Documented by: Dexmedetomidine HCl 400 mcg/ (IV Solution) 100 mls @ 2.66 mls/hr IV .Q24H [facility]; Protocol Last Admin: 08/07/21 15:09 Dose: Not Given Documented by: Lorazepam (Lorazepam 2 Mg/Ml Inj) 1 mg IV Q4HR PRN PRN Reason: Anxiety Last Admin: 08/07/21 10:09 Dose: 1 mg Documented by: Magnesium Oxide (Magnesium Oxide 400 Mg Tab) 400 mg PO HS [facility] Last Admin: 08/06/21 20:21 Dose: 400 mg Documented by: Melatonin (Melatonin 3 Mg Tablet) 3 mg PO HS PRN PRN Reason: Insomnia Methylprednisolone Sodium Succinate (Methylprednisolone Sod Succi 40 Mg/Ml 1 Ml Vial) 40 mg IV Q12HR [facility] Last Admin: 08/07/21 08:23 Dose: 40 mg Documented by: Metoclopramide HCl (Metoclopramide 5 Mg Tab) 5 mg PO TID PRN PRN Reason: Nausea Multivitamins (Multivitamins, Thera 1 Each Tab) 1 each PO DAILY@1200 [facility] Last Admin: 08/07/21 12:05 Dose: 1 each Documented by: Naloxone HCl (Naloxone 0.4 Mg/Ml 1 Ml Vial) 0.2 mg IV Q2M PRN PRN Reason: Opioid Reversal Nystatin (Nystatin 100,000 Unit/Ml Susp 500,000 Unit/5 Ml Cup) 500,000 unit PO QID [facility] Last Admin: 08/07/21 17:56 Dose: 500,000 unit Documented by: Ondansetron HCl (Ondansetron Odt 4 Mg Tab) 4 mg PO Q6H PRN PRN Reason: Nausea And Vomiting Last Admin: 08/01/21 21:04 Dose: 4 mg Documented by: Oxycodone HCl (Oxycodone Hcl 5 Mg Tab) 10 mg PO Q4H PRN PRN Reason: Moderate Pain Last Admin: 08/05/21 14:42 Dose: 10 mg Documented by: Pantoprazole Sodium (Pantoprazole 40 Mg Tablet) 40 mg PO DAILY [facility] Last Admin: 08/07/21 08:23 Dose: 40 mg Documented by: Paroxetine HCl (Paroxetine 20 Mg Tab) 20 mg PO HS [facility] Last Admin: 08/06/21 20:21 Dose: 20 mg Documented by: Polyethylene Glycol (Polyethylene Glycol 3350 17 Gm Powd.Pack) 17 gm PO DAILY PRN PRN Reason: Constipation Senna/Docusate Sodium (Sennosides-Docusate Sodium 1 Each Tab) 2 each PO BID [facility] Last Admin: 08/07/21 08:23 Dose: 2 each Documented by: Sodium Chloride (Sodium Chloride 0.9% Flush 10 Ml Syringe) 10 ml IV Q12HR [facility] Sodium Chloride (Sodium Chloride 0.9% Flush 10 Ml Syringe) 10 ml IV DIRECTED PRN PRN Reason: FLUSH Thiamine HCl (Thiamine 100 Mg Tab) 100 mg PO DAILY@1200 [facility] Last Admin: 08/07/21 12:05 Dose: 100 mg Documented by: Past medical history to include: Lung cancer, COPD, GERD, Social history: Patient smoked a pack a day for about 37 years, stopped around 2017. 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 Lives with daughter. No alcohol. Family history: Lung cancer Physical examination: VITAL SIGNS: 98, 109, 26, 1 66 x 89, 99% on 15 L GENERAL: Awake short of breath.. [ Loss of muscle mass and subcutaneous fat]. Right-sided chest tube. Worsening Subcutaneous emphysema EYES: Pupils equal. Conjunctiva pale HEENT: External appearance of nose and ears normal, oral cavity grossly normal. Face more puffy NECK: JVD unable to assess; masses not palpable. HEART: First and second heart sounds are normal; no edema. LUNGS: Respiratory rate increased diminished breath sounds prolonged expiration. Right-sided chest tube. Subcutaneous emphysema. ABDOMEN: Soft, nontender, liver spleen not palpable, no masses palpable. PSYCH: Awake, answering questions MUSCULOSKELETAL:No Clubbing/cyanosis;muscles-grossly intact. Evidence of OA INVESTIGATIONS, reviewed in the clinical context: August 07: White count 10.1 hemoglobin 10.8 platelets 291 potassium 3.8 creatinine 0.37 August 06: White count 7.9 hemoglobin 9.4 potassium 3.7 creatinine 0.36. Chest x-ray: Worsening subcutaneous emphysema August 05: White count 13.6 hemoglobin 9 platelets 456 potassium 5 BUN 25 creatinine 0.5 for August 04: White count 13.5 hemoglobin 9.7 platelets were 85 potassium 4.6 creatinine 0.49 August 03: White count 14.4 hemoglobin 10.9 platelets 344 ABGs noted. Sodium 131 potassium 4.2 creatinine 0.5. Chest x-ray film: Pneumothorax minimal. Chest tube. Subcutaneous emphysema. Obesity right upper lobe. August 02: White count 9.7 hemoglobin 10.7 sodium 128 potassium 3.6 creatinine 0.45 August 01: White count 7.60 globin 10.2 albumin 2.9 Chest x-ray film personally reviewed by me [July 31]: Infiltrate. Some right-sided pneumothorax White count 8.3 hemoglobin 11.2 platelets 399 sodium 131 potassium 4.1 bicarb 32 BUN 14 creatinine 0.5 to EKG tracing personally reviewed by me-normal sinus rhythm. P pulmonale. T wave changes. Admission labs: Sodium 1:30 albumin 2.9 white count 13.4 hemoglobin 11 Chest x-ray film personally reviewed by [id number] pneumothorax. Right upper lobe mass Assessment and plan: -Right-sided pneumothorax, treated with Thora-vent in the ER. Chest tube placed on August 02. to suction -acute COPD exacerbation in a previous smoker.: Slow to respond DuoNeb. IV Solu-Medrol 40 mg every 6 -Acute hypoxic respiratory failure from pneumothorax and pneumonia: Worsening intubated on the ventilator August 03. Extubated August 05. Currently 15 L nasal cannula -Subcutaneous emphysema: Worsening -Chronic hypoxic respiratory failure from underlying COPD 2-3 L of oxygen at home -Hyponatremia from decreased oral intake: -Septic shock: Improved IV levo fed discontinued -Suspect underlying pneumonia with gram-negative organism Cefepime 2 g every 8 -Lung cancer with metastatic disease status post chemotherapy and radiation treatment. Currently on immunotherapy. -Anxiety not otherwise specified Paxil 20 mg daily at bedtime -Anorexia secondary to underlying malignancy Encourage oral intake -Severe protein calorie malnutrition from decreased oral intake from underlying malignancy Ensure. Dietitian. -GERD Protonix -Chronic Back pain from malignancy Duragesic patch 100 g, oxycodone 10 mg every 4 when necessary -Full code IV cefepime. DuoNeb. right-sided chest tube . Significant subcutaneous emphysema. Hypoxia worsening. On 15 L nasal cannula. Alternating with BiPAP. Prognosis guarded.
[2021-08-07] MEDS: MAGNESIUM OXIDE 400 MG TAB PO SCH (20:05)
[2021-08-07] MEDS: PARoxetine 20 MG TAB PO SCH (20:06)
[2021-08-07] MEDS: GABAPENTIN 300 MG CAP PO SCH (20:06)
[2021-08-08] MEDS: HYDROmorphone 1 MG/ML 1 ML SYRINGE IVP PRN ×5 (01:51→22:38)
[2021-08-08] MEDS: CEFEPIME 2 GM in SODIUM CHLORIDE 0.9% 100 ML IVPB SCH ×3 (04:06→20:13)
[2021-08-08 04:11] LABS: Basophils % (A) 0 %; Eosinophils % (A) 0 %; HCT 29.1 % (39.0-53.0); Hypochromasia Slight; Lymphocytes # (A) 0.2 k/uL (1.0-4.8); Lymphocytes % (A) 4 %; MCH 29.4 pg (25.0-35.0); MCV 91.9 fL (80.0-100.0); Mean Platelet Volume 8.4; Monocytes # (A) 0.3 k/uL (0-1.0); Monocytes % (A) 5 %; Neutrophils % (A) 90 %; Platelet Count 215 k/uL (150-450); RBC 3.17 m/uL (4.30-5.90); RDW 15.3 % (11.5-15.5); WBC 5.5 k/uL (3.8-10.6)
[2021-08-08 04:21] LABS: African American GFR (CKD) >90 (>60 ml/min/1.73 sqM); Anion Gap -2 mmol/L; Blood Urea Nitrogen 15 mg/dL (9-20); Calcium 8.1 mg/dL (8.4-10.2); Carbon Dioxide 36 mmol/L (22-30); Chloride 98 mmol/L (98-107); Glucose 118 mg/dL (74-99); Non-African American GFR(CKD) >90 (>60 ml/min/1.73 sqM); Potassium 3.4 mmol/L (3.5-5.1); Sodium 132 mmol/L (137-145)
[2021-08-08 04:22] LABS: HGB 9.3 gm/dL (13.0-17.5)
[2021-08-08] MEDS ORDERED: Potassium Replacement Protocol 1 EACH MISC MISCELLANE PRN (04:44)
[2021-08-08] MEDS: POTASSIUM CHLORIDE ER 20 MEQ TAB.ER PO SCH ×2 (05:09→05:49)
--- NOTE | 2021-08-08 08:08 | XR ---
EXAMINATION TYPE: XR chest 1V portable DATE OF EXAM: 08/08/2021 HISTORY: Shortness of breath. COMPARISON: None. TECHNIQUE: Single view of the chest is submitted. FINDINGS: Persistent severe emphysematous change. Tiny less than 5% right apical pneumothorax cannot be exclude d. Extensive subcutaneous emphysema persists. Scattered interstitial and airspace infiltrates persist . Cardiac silhouette is stable. Right-sided chest tube is in place. Central venous line unchanged in po sition. Hilar and mediastinal structures are within normal limits. Degenerative changes are seen of the dorsal spine. IMPRESSION: 1. Persistent severe emphysematous change. Tiny less than 5% right apical pneumothorax cannot be exc luded. Extensive subcutaneous emphysema persists. Scattered interstitial and airspace infiltrates per sist.
[2021-08-08] MEDS: SENNOSIDES-DOCUSATE SODIUM 1 EACH TAB PO SCH ×2 (08:51→20:12)
[2021-08-08] MEDS: ENOXAPARIN 40 MG/0.4 ML SYRINGE SQ SCH (08:51)
[2021-08-08] MEDS: guaiFENesin 600 MG TABLET.ER PO SCH ×2 (08:51→20:13)
[2021-08-08] MEDS: PANTOPRAZOLE 40 MG TABLET PO SCH (08:51)
[2021-08-08] MEDS: methylPREDNISolone SOD SUCCI 40 MG/ML 1 ML VIAL IV SCH ×2 (08:51→20:13)
[2021-08-08] MEDS: NYSTATIN 100,000 UNIT/ML SUSP 500,000 UNIT/5 ML CUP PO SCH ×4 (08:52→20:13)
[2021-08-08] MEDS: IPRATROPIUM-ALBUTEROL 3 ML NEB INHALATION SCH ×4 (09:10→20:45)
[2021-08-08] MEDS: NOREPINEPHRINE 8 MG in SODIUM CHLORIDE 0.9% 250 ML IV SCH (10:48)
[2021-08-08] MEDS: QUEtiapine 25 MG TAB PO SCH ×2 (10:53→20:14)
[2021-08-08] MEDS: MULTIVITAMINS, THERA 1 EACH TAB PO SCH (12:29)
[2021-08-08] MEDS: THIAMINE 100 MG TAB PO SCH (12:29)
[2021-08-08] MEDS: FOLIC ACID 1 MG TAB PO SCH (12:29)
--- NOTE | 2021-08-08 14:01 | P.PN ---
Subjective Progress Note Date: 08/08/21 Principal diagnosis: Acute hypoxic respiratory failure, multifactorial On 08/08/2021 patient is seen in follow-up in the intensive care unit. He is awake and alert, he is currently on BiPAP support with pressures of 12 and 5 and FiO2 of 50%, his pulse ox is 95%. Attempts patient does get anxious, he is receiving as needed doses of Dilantin, and Ativan with affect. Today's chest x- ray has been reviewed showing persistent severe emphysematous changes, tiny less than 5% right apical pneumothorax extensive subcutaneous emphysema, scattered interstitial and airspace infiltrates. On physical exam his subcutaneous emphysema in his face, eyelids neck area has substantially decreased and his facial subcutaneous emphysema is very minimal at this time, his right-sided chest tube remains in place to wall suction, no evidence of air leak on today's exam. Patient is currently on just 0.9, saline at a rate of 20 ML per hour, no other drips. No cough, she remains on cefepime for pseudomonal pneumonia, his sputum culture showed pseudomonas aeruginosa and Diane albicans. Patient also remains on DuoNeb, IV Solu-Medrol 40 mg every 12 hours, he is not requiring any vasopressor support. No significant phlegm production, he remains on Mucinex. Denies any chest discomfort. Objective - Vital Signs Vital signs: Vital Signs Temp 97.1 F L 08/08/21 12:00 Pulse 95 08/08/21 13:28 Resp 22 08/08/21 12:00 BP 113/85 08/08/21 12:00 Pulse Ox 97 08/08/21 12:00 Intake & Output 08/07/21 08/08/21 08/08/21 18:59 06:59 18:59 Intake Total 980 120 60 Output Total 525 725 300 Balance 678 -137 -933 Weight 53.2 kg 52.3 kg Intake: IV 280 120 60 Cefepime 2 gm In Sodium 100 Chloride 0.9% 100 ml @ 25 mls/hr IVPB Q8H [facility] Rx#: [id number] Sodium Chloride 0.9% 1, 160 000 ml @ 20 mls/hr IV . Q24H [facility] Rx#:[id number] ns 20 120 60 Oral 700 Output: Chest Tube Drainage 10 0 0 Chest Tube Right Anterior 10 0 0 Chest Urine 515 725 300 Other: Voiding Method Indwelling Catheter Indwelling Catheter Indwelling Catheter ABP, PAP, CO, CI - Last Documented Arterial Blood Pressure 124/63 - Exam GENERAL EXAM: Alert, anxious, 56-year-old white male, on BiPAP support with pressures of 12 and 5 and FiO2 of 50%, comfortable in no apparent distress. HEAD: Normocephalic/atraumatic. EYES: Normal reaction of pupils, equal size. Conjunctiva pink, sclera white. Subcutaneous emphysema involving patient's eyelids, face has significantly subsided, NOSE: Clear with pink turbinates. THROAT: No erythema or exudates. NECK: No masses, no JVD, no thyroid enlargement, no adenopathy. Improving subcutaneous emphysema CHEST: No chest wall deformity. Symmetrical expansion. Right chest tube to wall suction, no air leak LUNGS: Equal air entry with diminished breath sounds CVS: Regular rate and rhythm, normal S1 and S2, no gallops, no murmurs, no rubs ABDOMEN: Soft, nontender. No hepatosplenomegaly, normal bowel sounds, no guarding or rigidity. EXTREMITIES: No clubbing, no edema, no cyanosis, 2+ pulses and upper and lower extremities. MUSCULOSKELETAL: Muscle strength and tone normal. SPINE: No scoliosis or deformity SKIN: No rashes CENTRAL NERVOUS SYSTEM: Alert and oriented -3. No focal deficits, tone is normal in all 4 extremities. PSYCHIATRIC: Alert and oriented -3. Appropriate affect. Intact judgment and insight. - Labs CBC & Chem 7: 08/08/21 03:57 08/08/21 03:57 Labs: Abnormal Lab Results - Last 24 Hours (Table) 08/08/21 08/08/21 Range/Units 03:57 03:57 RBC 3.17 L (4.30-5.90) m/uL Hgb 9.3 L D (13.0-17.5) gm/dL Hct 29.1 L (39.0-53.0) % Lymphocytes # 0.2 L (1.0-4.8) k/uL Sodium 132 L (137-145) mmol/L Potassium 3.4 L (3.5-5.1) mmol/L Carbon Dioxide 36 H (22-30) mmol/L Creatinine 0.34 L (0.66-1.25) mg/dL Glucose 118 H (74-99) mg/dL Calcium 8.1 L (8.4-10.2) mg/dL Assessment and Plan Plan: Assessment: #1. Acute on chronic hypoxic respiratory failure, multifactorial related to history of COPD, lung cancer, and acute right-sided large pneumothorax, requiring chest tube placement #2. Subcutaneous emphysema involving upper chest, neck, and face, significantly improved #3. Stage IV poorly differentiated non-small cell lung carcinoma diagnosed in June 2020 #4. Recent hospitalization for right lower lobe pneumonia related to Pseudomonas aeruginosa discharged on 07/03/2021 #5. Pseudomonas aeruginosa and sputum cultures, patient is currently on cefep tara #6. Chronic tobacco dependence syndrome #7. Anxiety, agitation, patient is currently on a combination of IV Dilaudid, Ativan, we will add Seroquel 25 mg twice daily #8. Mild hyponatremia likely related to poor oral intake #9. GERD/reflux #10. Chronic back pain Plan: Continue BiPAP support Provide nasal cannula trials as tolerated Weaning FiO2 to keep oxygen saturation is above 90% Continue with current antibiotics Continue breathing treatments and IV steroids Chest tube remains in place, minimal 5% right apical pneumothorax Follow-up chest x-ray tomorrow We'll add Seroquel 25 mg twice daily for anxiety and mild agitation Continue GI and DVT prophylaxis Nutritional supplements as needed Continue to follow his clinical course I performed a history & physical examination of the patient and discussed their management with my nurse practitioner, Tori Villaseñor. I reviewed the nurse practitioner's note and agree with the documented findings and plan of care. Lung sounds are positive for dim breath sounds throughout the lung alexandra. The findings and the impression was discussed with the patient. I attest to the documentation by the nurse practitioner. Time with Patient: Greater than 30
--- NOTE | 2021-08-08 18:57 | P.PN ---
Subjective Progress Note Date: 08/08/21 Principal diagnosis: lung cancer respiratory failure He is improving daily, on high flow today, still in ICU Continues on bipap Objective - Vital Signs Vital signs: Vital Signs Temp 97.3 F L 08/08/21 08:00 Pulse 77 08/08/21 11:00 Resp 17 08/08/21 11:00 BP 124/81 08/08/21 08:00 Pulse Ox 97 08/08/21 11:00 Intake & Output 08/07/21 08/08/21 08/08/21 18:59 06:59 18:59 Intake Total 980 120 50 Output Total 525 725 260 Balance 703 -201 -210 Weight 53.2 kg 52.3 kg Intake: IV 280 120 50 Cefepime 2 gm In Sodium 100 Chloride 0.9% 100 ml @ 25 mls/hr IVPB Q8H [facility]PLACED BY [facility] Rx#: [id number] Sodium Chloride 0.9% 1, 160 000 ml @ 20 mls/hr IV . Q24H [facility] Rx#:[id number] ns 20 120 50 Oral 700 Output: Chest Tube Drainage 10 0 0 Chest Tube Right Anterior 10 0 0 Chest Urine 515 725 260 Other: Voiding Method Indwelling Catheter Indwelling Catheter Indwelling Catheter ABP, PAP, CO, CI - Last Documented Arterial Blood Pressure 136/66 - Exam - Constitutional General appearance: cooperative - EENT Eyes: EOMI ENT: NA/AT - Neck Neck: normal ROM - Respiratory Respiratory: left: dullness (chest tube) high flow - Cardiovascular Rhythm: regularly irregular - Gastrointestinal General gastrointestinal: soft - Integumentary Integumentary: pale - Musculoskeletal Musculoskeletal: generalized weakness - Psychiatric more awake Psychiatric: A&O x's 3, appropriate affect, intact judgment & insight - Labs CBC & Chem 7: 08/08/21 03:57 08/08/21 03:57 Labs: Abnormal Lab Results - Last 24 Hours (Table) 08/08/21 08/08/21 Range/Units 03:57 03:57 RBC 3.17 L (4.30-5.90) m/uL Hgb 9.3 L D (13.0-17.5) gm/dL Hct 29.1 L (39.0-53.0) % Lymphocytes # 0.2 L (1.0-4.8) k/uL Sodium 132 L (137-145) mmol/L Potassium 3.4 L (3.5-5.1) mmol/L Carbon Dioxide 36 H (22-30) mmol/L Creatinine 0.34 L (0.66-1.25) mg/dL Glucose 118 H (74-99) mg/dL Calcium 8.1 L (8.4-10.2) mg/dL Assessment and Plan (1) Lung cancer Current Visit: Yes Status: Chronic Priority: Medium Code(s): C34.90 - MALIGNANT NEOPLASM OF UNSP PART OF UNSP BRONCHUS OR LUNG SNOMED Code(s): 273693619 (2) Pneumothorax Narrative/Plan: Status post chest tube in ER Pulmonary is following Worsening acute respiratory failure - Improving in the care of ICU Current Visit: Yes Status: Acute Code(s): J93.9 - PNEUMOTHORAX, UNSPECIFIED SNOMED Code(s): 94583316 Plan: Continue to hold treatment for cancer until resolution of hospitalized problem Continue supportive care per ICU Will send for further evaluation of chest tube fluid cytology. Physician Attest: I have completed the full history and physical and agree with above dictation, dictated as a scribe.
[2021-08-08] MEDS: GABAPENTIN 300 MG CAP PO SCH (20:12)
[2021-08-08] MEDS: MAGNESIUM OXIDE 400 MG TAB PO SCH (20:13)
[2021-08-08] MEDS: PARoxetine 20 MG TAB PO SCH (20:14)
--- NOTE | 2021-08-08 22:18 | P.PN ---
Progress Note - Text Progress Note Date: 08/08/21 Chief Complaint: Cough with sputum History of presenting complaint: This is a very pleasant 56-year-old patient of Dr. Cabello. followed by Dr. Saleem of the laborer [facility], Dr. Daniel the oncologist and Dr. Floyd Medina from radiation oncology. Diagnosis of with lung cancer. Has only had radiation treatment and chemotherapy. Currently getting immunotherapy. For about a week patient been having increasing amount of cough. Bringing up some green yellow and bloody sputum. Appetite has been poor. Bowels are okay. At home uses 3 L of oxygen. Has been having weight loss. Significantly short of breath and some wheezing. Tired rundown. In the ER the patient was found to have a large sided pneumothorax. 13-Syrian Thora-vent was placed by ER physician. Repeat chest x-ray showed continued pneumothorax. Patient is put on suction for about an hour and subsequent x-ray showed improvement. This morning patient still short of breath but slightly better. Tired. Continues to have his chronic low back pain which is significant July 31: Patient has some pneumothorax on the right side. Some air leak. Subcutaneous emphysema. Given his immunosuppressed state steroids discontinued by pulmonary. Patient's breathing a bit better today. Congested cough. Eating some. Tired. Short of breath. IV cefepime August 01: Dr. Holley detected Thora-vent and flushed the catheter./The tubing. Tubing was replaced. Congested cough continues. Oral intake fair. Diet. 4 L nasal cannula. Propped up in bed. August 02: Because of persistent pneumothorax and increasing subcu to [address] Holley discontinued the Thora-vent and placed a right-sided chest tube. Oral intake fair. On 4 L nasal cannula. August 03: ICU: This morning patient became more short of breath. Brought to the ICU. Intubated. Drips include norepinephrine, propofol. Patient sedated. Ventilator: FiO2 60% and a PEEP of 5. Sinus rhythm. Discussed with daughter the bedside. August 04: ICU. Ventilator: 50/5. Telemetry: Sinus rhythm. Intubated. Sedated. Drips include IV propofol and norepinephrine. Subcutaneous emphysema present. Discussed with daughter the bedside. August 05: ICU. Patient was extubated earlier today. On nasal cannula. 5 L. Right-sided chest tube. Sinus tachycardia. Daughter the bedside. Awake answering questions. Subcutis emphysema significant. Short of breath. August 06: ICU. On 5 L of nasal cannula. Significant subcutaneous emphysema. Now has gone to the face. Some sinus tachycardia. Right-sided chest tube. Eating some. Spoke to the patient and daughter the bedside. August 07: ICU. On 12 L high flow nasal cannula. Alternating between BiPAP. Subcutis emphysema. Eating about 25%. Daughter the bedside. Right chest tube in place. August 08: ICU. 11 L high flow nasal cannula. Did eat his food. Using BiPAP sometimes. Some decrease in subcutaneous emphysema. Daughter the bedside. Right chest tube remains in place. Active Medications Acetaminophen (Acetaminophen Tab 325 Mg Tab) 650 mg PO Q6HR PRN PRN Reason: Mild Pain or Fever > 100.5 Albuterol/Ipratropium (Ipratropium-Albuterol 3 Ml Neb) 3 ml INHALATION RT-QID [facility] Last Admin: 08/08/21 20:45 Dose: 3 ml Documented by: Albuterol/Ipratropium (Ipratropium-Albuterol 3 Ml Neb) 3 ml INHALATION RT-Q2H PRN PRN Reason: Shortness Of Breath Or Wheezing Cholestyramine Resin (Cholestyramine (With Sugar) 4 Gm Packet) 4 gm PO DAILY PRN PRN Reason: Diarrhea Enoxaparin Sodium (Enoxaparin 40 Mg/0.4 Ml Syringe) 40 mg SQ DAILY [facility] Last Admin: 08/08/21 08:51 Dose: 40 mg Documented by: Fentanyl (Fentanyl 100mcg/Hr Patch) 1 patch TRANSDERM Q72H [facility]; Protocol Last Admin: 08/08/21 00:48 Dose: 1 patch Documented by: Folic Acid (Folic Acid 1 Mg Tab) 1 mg PO DAILY@1200 [facility] Last Admin: 08/08/21 12:29 Dose: 1 mg Documented by: Gabapentin (Gabapentin 300 Mg Cap) 300 mg PO HS [facility] Last Admin: 08/08/21 20:12 Dose: 300 mg Documented by: Guaifenesin (Guaifenesin 600 Mg Tablet.Er) 600 mg PO Q12HR [facility] Last Admin: 08/08/21 20:13 Dose: 600 mg Documented by: Hydromorphone HCl (Hydromorphone 1 Mg/Ml 1 Ml Syringe) 1 mg IVP Q3HR PRN PRN Reason: severe Pain Last Admin: 08/08/21 18:15 Dose: 1 mg Documented by: Cefepime HCl 2 gm/ Sodium (Chloride) 100 mls @ 25 mls/hr IVPB Q8H [facility] Last Admin: 08/08/21 20:13 Dose: 25 mls/hr Documented by: Norepinephrine Bitartrate 8 mg (/ Sodium Chloride) 258 mls @ 4.388 mls/hr IV .Q24H [facility]; Protocol Last Admin: 08/08/21 10:48 Dose: Not Given Documented by: Lorazepam (Lorazepam 2 Mg/Ml Inj) 1 mg IV Q4HR PRN PRN Reason: Anxiety Last Admin: 08/07/21 20:09 Dose: 1 mg Documented by: Magnesium Oxide (Magnesium Oxide 400 Mg Tab) 400 mg PO HS [facility] Last Admin: 08/08/21 20:13 Dose: 400 mg Documented by: Melatonin (Melatonin 3 Mg Tablet) 3 mg PO HS PRN PRN Reason: Insomnia Methylprednisolone Sodium Succinate (Methylprednisolone Sod Succi 40 Mg/Ml 1 Ml Vial) 40 mg IV Q12HR [facility] Last Admin: 08/08/21 20:13 Dose: 40 mg Documented by: Metoclopramide HCl (Metoclopramide 5 Mg Tab) 5 mg PO TID PRN PRN Reason: Nausea Miscellaneous Information (Potassium Replacement Protocol 1 Each Misc) 1 each MISCELLANE DAILY PRN; Protocol PRN Reason: Per Protocol Multivitamins (Multivitamins, Thera 1 Each Tab) 1 each PO DAILY@1200 [facility] Last Admin: 08/08/21 12:29 Dose: 1 each Documented by: Naloxone HCl (Naloxone 0.4 Mg/Ml 1 Ml Vial) 0.2 mg IV Q2M PRN PRN Reason: Opioid Reversal Nystatin (Nystatin 100,000 Unit/Ml Susp 500,000 Unit/5 Ml Cup) 500,000 unit PO QID [facility] Last Admin: 08/08/21 20:13 Dose: 500,000 unit Documented by: Ondansetron HCl (Ondansetron Odt 4 Mg Tab) 4 mg PO Q6H PRN PRN Reason: Nausea And Vomiting Last Admin: 08/01/21 21:04 Dose: 4 mg Documented by: Oxycodone HCl (Oxycodone Hcl 5 Mg Tab) 10 mg PO Q4H PRN PRN Reason: Moderate Pain Last Admin: 08/08/21 20:12 Dose: 10 mg Documented by: Pantoprazole Sodium (Pantoprazole 40 Mg Tablet) 40 mg PO DAILY [facility] Last Admin: 08/08/21 08:51 Dose: 40 mg Documented by: Paroxetine HCl (Paroxetine 20 Mg Tab) 20 mg PO HS [facility] Last Admin: 08/08/21 20:14 Dose: 20 mg Documented by: Polyethylene Glycol (Polyethylene Glycol 3350 17 Gm Powd.Pack) 17 gm PO DAILY PRN PRN Reason: Constipation Quetiapine Fumarate (Quetiapine 25 Mg Tab) 25 mg PO BID [facility] Last Admin: 08/08/21 20:14 Dose: 25 mg Documented by: Senna/Docusate Sodium (Sennosides-Docusate Sodium 1 Each Tab) 2 each PO BID [facility] Last Admin: 08/08/21 20:12 Dose: 2 each Documented by: Sodium Chloride (Sodium Chloride 0.9% Flush 10 Ml Syringe) 10 ml IV Q12HR [facility] Last Admin: 08/08/21 20:15 Dose: Not Given Documented by: Sodium Chloride (Sodium Chloride 0.9% Flush 10 Ml Syringe) 10 ml IV DIRECTED PRN PRN Reason: FLUSH Thiamine HCl (Thiamine 100 Mg Tab) 100 mg PO DAILY@1200 [facility] Last Admin: 08/08/21 12:29 Dose: 100 mg Documented by: Past medical history to include: Lung cancer, COPD, GERD, Social history: Patient smoked a pack a day for about 37 years, stopped around 2018. Used to work in a [employer]. 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 Lives with daughter. No alcohol. Family history: Lung cancer Physical examination: VITAL SIGNS: Afebrile, 80, 20, 120/60, 95% 11 L GENERALshort of breath.. [ Loss of muscle mass and subcutaneous fat]. Right- sided chest tube. Worsening Subcutaneous emphysema EYES: Pupils equal. Conjunctiva pale HEENT: External appearance of nose and ears normal, oral cavity grossly normal. Face more puffy NECK: JVD unable to assess; masses not palpable. HEART: First and second heart sounds are normal; no edema. LUNGS: Respiratory rate increased diminished breath sounds prolonged expiration. Right-sided chest tube. Subcutaneous emphysema. ABDOMEN: Soft, nontender, liver spleen not palpable, no masses palpable. PSYCH: Awake, answering questions MUSCULOSKELETAL:No Clubbing/cyanosis;muscles-grossly intact. Evidence of OA INVESTIGATIONS, reviewed in the clinical context: August 08: White count 5.5, benign 0.3and 3.4 creatinine 0.34 sodium 132 August 07: White count 10.1 hemoglobin 10.8 platelets 291 potassium 3.8 creatinine 0.37 August 06: White count 7.9 hemoglobin 9.4 potassium 3.7 creatinine 0.36. Chest x-ray: Worsening subcutaneous emphysema August 05: White count 13.6 hemoglobin 9 platelets 456 potassium 5 BUN 25 creatinine 0.5 for August 04: White count 13.5 hemoglobin 9.7 platelets were 85 potassium 4.6 creatinine 0.49 August 03: White count 14.4 hemoglobin 10.9 platelets 344 ABGs noted. Sodium 131 potassium 4.2 creatinine 0.5. Chest x-ray film: Pneumothorax minimal. Chest tube. Subcutaneous emphysema. Obesity right upper lobe. August 02: White count 9.7 hemoglobin 10.7 sodium 128 potassium 3.6 creatinine 0.45 August 01: White count 7.60 globin 10.2 albumin 2.9 Chest x-ray film personally reviewed by me [July 31]: Infiltrate. Some right-sided pneumothorax White count 8.3 hemoglobin 11.2 platelets 399 sodium 131 potassium 4.1 bicarb 32 BUN 14 creatinine 0.5 to EKG tracing personally reviewed by me-normal sinus rhythm. P pulmonale. T wave changes. Admission labs: Sodium 1:30 albumin 2.9 white count 13.4 hemoglobin 11 Chest x-ray film personally reviewed by [id number] pneumothorax. Right upper lobe mass Assessment and plan: -Right-sided pneumothorax, treated with Thora-vent in the ER. Chest tube placed on August 02. to suction -acute COPD exacerbation in a previous smoker.: Slow to respond DuoNeb. IV Solu-Medrol 40 mg every 6 -Acute hypoxic respiratory failure from pneumothorax and pneumonia: Slow to respond intubated on the ventilator August 03. Extubated August 05. Currently 11 L nasal cannula -Subcutaneous emphysema: Not improving -Chronic hypoxic respiratory failure from underlying COPD 2-3 L of oxygen at home -Hyponatremia from decreased oral intake: -Septic shock: Improved IV levo fed discontinued -Suspect underlying pneumonia with gram-negative organism Cefepime 2 g every 8 -Lung cancer with metastatic disease status post chemotherapy and radiation treatment. Currently on immunotherapy. -Anxiety not otherwise specified Paxil 20 mg daily at bedtime -Anorexia secondary to underlying malignancy Encourage oral intake -Severe protein calorie malnutrition from decreased oral intake from underlying malignancy Ensure. Dietitian. -GERD Protonix -Chronic Back pain from malignancy Duragesic patch 100 g, oxycodone 10 mg every 4 when necessary -Full code IV cefepime. DuoNeb. right-sided chest tube . Significant subcutaneous emphysema. 11 L nasal cannula. Alternating with BiPAP. Prognosis guarded.
[2021-08-09] MEDS ORDERED: POTASSIUM CHLORIDE ER 20 MEQ TAB.ER PO SCH
[2021-08-09] MEDS: CEFEPIME 2 GM in SODIUM CHLORIDE 0.9% 100 ML IVPB SCH ×3 (03:39→20:36)
[2021-08-09 03:49] LABS: Basophils % (A) 0 %; Eosinophils % (A) 0 %; HCT 31.3 % (39.0-53.0); Hypochromasia Slight; Lymphocytes # (A) 0.2 k/uL (1.0-4.8); Lymphocytes % (A) 3 %; MCH 29.3 pg (25.0-35.0); MCHC 31.8 g/dL (31.0-37.0); Mean Platelet Volume 8.1; Monocytes # (A) 0.2 k/uL (0-1.0); Monocytes % (A) 4 %; Neutrophils # (A) 5.5 k/uL (1.3-7.7); Neutrophils % (A) 92 %; Platelet Count 244 k/uL (150-450); RDW 15.3 % (11.5-15.5)
[2021-08-09 04:04] LABS: African American GFR (CKD) >90 (>60 ml/min/1.73 sqM); Anion Gap 0 mmol/L; Blood Urea Nitrogen 13 mg/dL (9-20); Calcium 8.1 mg/dL (8.4-10.2); Carbon Dioxide 35 mmol/L (22-30); Chloride 96 mmol/L (98-107); Glucose 153 mg/dL (74-99); Non-African American GFR(CKD) >90 (>60 ml/min/1.73 sqM); Potassium 4.1 mmol/L (3.5-5.1); Sodium 131 mmol/L (137-145)
[2021-08-09 04:50] LABS: Glucose,Whole Blood 103 mg/dL (75-99)
[2021-08-09] MEDS: HYDROmorphone 1 MG/ML 1 ML SYRINGE IVP PRN ×4 (06:25→18:56)
--- NOTE | 2021-08-09 06:51 | XR ---
EXAMINATION TYPE: XR chest 1V portable DATE OF EXAM: 08/09/2021 5:41 AM COMPARISON:Chest radiograph from one day prior. TECHNIQUE: XR chest 1V portable Frontal view of the chest. CLINICAL INDICATION:Male, 56 years old with history of shortness of breath; FINDINGS: Lungs/Pleura: There is flattening of the diaphragm with increased lucency of the lungs. No evidence o f obvious pneumothorax, pleural effusion. Similar airspace opacities which are superimposed on the CO PD changes are present within the lower lobes bilaterally.. Pulmonary vascularity: Unremarkable. Heart/mediastinum: Cardiomediastinal silhouette is unremarkable. Musculoskeletal: No acute osseous pathology. Other findings: Subcutaneous emphysema scattered throughout the visualized thorax is unchanged. Lines/Tubes: Endotracheal tube with distal tip xx cm above the [place] Nasogastric tube with its distal tip and side-port projecting under the diaphragm. Right thoracotomy tube is present without evidence of pneumothorax. Right-sided PICC line with distal tip at the cavoatrial junction. IMPRESSION: 1. Similar multifocal airspace opacities. 2. Stable support lines and tubes. 3. Subcutaneous emphysema, similar. 4. COPD changes.
[2021-08-09] MEDS: IPRATROPIUM-ALBUTEROL 3 ML NEB INHALATION SCH ×4 (07:48→19:41)
[2021-08-09] MEDS: PANTOPRAZOLE 40 MG TABLET PO SCH (08:22)
[2021-08-09] MEDS: SENNOSIDES-DOCUSATE SODIUM 1 EACH TAB PO SCH ×2 (08:22→20:36)
[2021-08-09] MEDS: guaiFENesin 600 MG TABLET.ER PO SCH ×2 (08:22→20:35)
[2021-08-09] MEDS: methylPREDNISolone SOD SUCCI 40 MG/ML 1 ML VIAL IV SCH ×2 (08:22→20:36)
[2021-08-09] MEDS: ENOXAPARIN 40 MG/0.4 ML SYRINGE SQ SCH (08:22)
[2021-08-09] MEDS: QUEtiapine 25 MG TAB PO SCH ×2 (08:31→20:48)
[2021-08-09] MEDS: NYSTATIN 100,000 UNIT/ML SUSP 500,000 UNIT/5 ML CUP PO SCH ×3 (08:31→19:05)
[2021-08-09] MEDS: NOREPINEPHRINE 8 MG in SODIUM CHLORIDE 0.9% 250 ML IV SCH (09:33)
[2021-08-09] MEDS: LORazepam 2 MG/ML INJ IV PRN ×2 (10:00→17:03)
--- NOTE | 2021-08-09 11:29 | P.PN ---
Subjective Progress Note Date: 08/09/21 Principal diagnosis: Acute hypoxic respiratory failure, multifactorial 08/03/2021, the patient is currently in the intensive care unit. 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 He became progressively more short of breath, lethargic, tachypneic, and he was using excessive muscle breathing. He was placed on a BiPAP and by the time he arrived to the ICU, he was quite somnolent and sleepy and lethargic. At that point, I intubated the patient with him on a mechanical ventilator. The right-sided chest tube was still in place. A chest x-ray was done post intubation showed a right apical pneumothorax. This appears emphysema on the right. ET tube is in a good location. Chest tube is in a good location. There is persistent air leak from the chest tube. there is no interval worsening in the size of the right-sided pneumothorax. Post intubation, the patient was kept on a rate of 24, tidal volume of 300, FiO2 of 100% with a PEEP of 5. Current pulse ox is 90%. Blood pressure is stable with a blood pressure of 90/64. Heart rate is 103, sinus. His, comfortable on propofol which is running at 20 mg/kg per minute. The patient also received a dose of Nimbex 10 mg IV push prior to intubation. The triple-lumen cath was also inserted in the left subclavian. He does have some subcutaneous emphysema along the left chest area.Blood work shows a white cell count of 14.4 with a hemoglobin of 10.9 and a platelet count of 344. His sodium level is at 131, BUN is at 40 with a creatinine of 0.5 from this morning. LFTs are within normal limits. Note that during the intubation process and under direct laryngoscopic evaluation, the patient had some purulent material accumulating in his posterior oropharynx and covering his epiglottis and vocal cords. He is currently on IV cefepime. While on a mechanical ventilator, is particularly pressures around 31. Reevaluated today on 08/04/2021, patient remains in the ICU, intubated and mechanically ventilated. His daughter is at bedside. Patient is on assist control rate of 24 tidal volume is 300 FiO2 50% and PEEP of 5. Peak airway pressure is 24.2 pressures 13. Patient's showed a pO2 of 106 pCO2 49 pH of 7.36, hence cut down his FiO2 to 45%, otherwise no changes in his vent settings. Patient is requiring norepinephrine at 0.12, propofol is at 50 IV fluids at KVO. Chest x-ray showed reexpansion of the right lung, significant subcutaneous emphysema is noted. Remains on antibiotics in the form of cefepime. Patient will be placed on pressure support mode of mechanical ventilation and CPAP if tolerated. However I will try to awaken the patient today, and possibly assess weaning parameters and proceed to weaning mode if possible and if tolerated. In the meantime patient has significant subcu emphysema, and I went ahead and plac ed a 14-gauge angiocatheter in the anterior chest wall for decompression of the subcutaneous emphysema. Patient's acute presentation of respiratory failure seems to be related to underlying COPD, large right-sided pneumothorax requiring chest tube placement, and he has a stage IV non-small cell lung cancer. Patient is on immunotherapy. Labs today were reviewed WBC count is 13.5 hemoglobin 9.7 left lites are normal renal profile is normal Reevaluated today on 08/05/2021, patient remains intubated mechanically ventilated, sedated, he is on assist control rate of 24 tidal volume 300 FiO2 40% PEEP of 5. ABG showed a pO2 of 93 pCO2 of 42 pH of 7.43. Patient remains on enteral tube feeding, he is on vital 1.5 at 50 mL per hour. Patient is on propofol which I placed on hold planning to wean and extubate the patient. He is also on norepinephrine at 0.03 mcg/kg/m. Right-sided chest tube remains in place, no air leak is noted, however the patient seems to be developing worsening subcutaneous emphysema. There is no evidence of pneumothorax. Patient is arousable, follows simple instructions, but intermittently seems to be a bit agitated, hence I started the patient on Precedex, I discontinued his propofol, and I plan to give the patient a weaning trial and hopefully extubate today. Chest x-ray shows right-sided volume loss with multifocal right lung opacities and the right hilar mass like opacity and evidence of subcutaneous emphysema noted WBC count is 13.6 hemoglobin is 9 electrolytes are normal renal profile is normal bicarb is 27 Reevaluated today on 08/06/2021, patient remains in the ICU, he was extubated yesterday, tolerated the extubation well. He is now on 4 L nasal cannula, no major issues over the last 24 hours except he continues to have a chest tube on the right side, positive air leak, and he continues to have significant worsening subcutaneous emphysema. Chest x-ray is basically unchanged. Continues to have significant subcutaneous emphysema, and the findings on the right lung are basically the same. Patient is comfortable, he is not in distress. Afebrile, vital signs are stable. No labs were done today on this patient Reevaluated today on 08/07/2021, remains in the ICU, patient has been tolerating the extubation well for the last few days, however he remains marginal at best. Patient had to be placed back on BiPAP yesterday, he is requiring intermittent Dilaudid and Ativan to keep him calm. Overall not much of a change except he is off mechanical ventilation, continues to have significant subcutaneous emphysema but improving. When off BiPAP, the patient is on 15 L high flow cannula. He is off Precedex today. But again requiring Ativan and Dilaudid. Has been alternating between high flow cannula and BiPAP. WBC count today is 10 hemoglobin is 10.8 electrolytes are normal renal profile is normal, chest x-ray continues to show subcutaneous emphysema no visualized the right-sided pneumothorax, right-sided chest tube in place, I don't even see a leak this morning on the chest tube Pleur-evac. Reevaluated today on 08/09/2021, patient remains in the ICU, he is now on high flow nasal cannula, 10 L/m, he is not using BiPAP for the last 24 hours. Patient is feeling much better today compared to the last few days, his subcutan eous emphysema is significantly better. Chest x-ray is showing definite improvement. There is no evidence of air leak and the chest tube, hence this was placed off wall suction. WBC count is 6 hemoglobin 10 electrolytes are normal except for slightly low sodium of 131 electrolytes are otherwise okay and history of profile is normal Objective - Vital Signs Vital signs: Vital Signs Temp 97.9 F 08/09/21 08:00 Pulse 84 08/09/21 11:00 Resp 16 08/09/21 11:00 BP 117/80 08/09/21 09:00 Pulse Ox 95 08/09/21 11:00 Intake & Output 08/08/21 08/09/21 08/09/21 18:59 06:59 18:59 Intake Total 120 130 30 Output Total 690 760 325 Balance -570 -630 -295 Weight 51.3 kg Intake: IV 120 130 30 ns 120 130 30 Output: Chest Tube Drainage 0 0 Chest Tube Right Anterior 0 0 Chest Urine 690 760 325 Other: Voiding Method Indwelling Catheter Indwelling Catheter Indwelling Catheter ABP, PAP, CO, CI - Last Documented Arterial Blood Pressure 134/65 - Exam GENERAL EXAM: Revealed 56-year-old white male on high flow nasal cannula , 10 L high flow. HEAD: Normocephalic. Atraumatic. HEENT: PERRLA, EOMI, nonicteric, no neck masses, no JVD, subcutaneous emphysema is noted. CHEST: Symmetrical chest expansion, significant subcutaneous emphysema noted in the anterior chest wall area. Crackles at the bases. Right Sided chest tube is noted, no air leak is noted today. Hence the chest tube was placed off suction CVS: S1 and S2 normal with no audible murmur, regular rhythm. ABDOMEN: Soft nontender no megaly no rebound no guarding. SPINE: No scoliosis or deformity SKIN: No rashes CENTRAL NERVOUS SYSTEM: No focal deficits, tone is normal in all 4 extremities EXTREMITIES: There is no peripheral edema. No clubbing, no cyanosis. P eripheral pulses are intact. - Labs CBC & Chem 7: 08/09/21 03:30 08/09/21 03:30 Labs: Abnormal Lab Results - Last 24 Hours (Table) 08/03/21 08/09/21 08/09/21 Range/Units 08:21 03:30 03:30 RBC 3.40 L (4.30-5.90) m/uL Hgb 10.0 L (13.0-17.5) gm/dL Hct 31.3 L (39.0-53.0) % Lymphocytes # 0.2 L (1.0-4.8) k/uL Sodium 131 L (137-145) mmol/L Chloride 96 L (98-107) mmol/L Carbon Dioxide 35 H (22-30) mmol/L Creatinine 0.30 L (0.66-1.25) mg/dL Glucose 153 H (74-99) mg/dL POC Glucose (mg/dL) 103 H (75-99) mg/dL Calcium 8.1 L (8.4-10.2) mg/dL Assessment and Plan Assessment: Acute on chronic hypoxemic respiratory failure , multifactorial as the patient has COPD, lung cancer, and a acute right-sided large pneumothorax. Requiring chest tube placement. Stage IV a poorly differentiated non-small cell lung cancer diagnosed in June of 2020. Recent hospitalization for right lower lobe pneumonia secondary to Pseudomonas discharged on 07/03 Tobacco dependence syndrome. Subcutaneous emphysema secondary to right-sided pneumothorax, status post chest tube insertion. Presently no air leak. Recommendation: Continue to monitor the patient in the ICU. Patient was extubated on 08/05, tolerated extubation well, presently on high flow nasal cannula, off BiPAP. Continue antibiotics/cefepime. Continue bronchodilators and IV Solu-Medrol. Will transition to prednisone. Continue Lovenox for DVT prophylaxis. Continue IV Protonix. Right-sided chest tube on suction. keep patient in the ICU for now, patient is marginal at best. Time with Patient: Less than 30
[2021-08-09] MEDS: FOLIC ACID 1 MG TAB PO SCH (12:43)
[2021-08-09] MEDS: MULTIVITAMINS, THERA 1 EACH TAB PO SCH (12:43)
[2021-08-09] MEDS: THIAMINE 100 MG TAB PO SCH (12:43)
--- NOTE | 2021-08-09 14:13 | P.PN ---
Progress Note - Text Progress Note Date: 08/09/21 Chief Complaint: Cough with sputum History of presenting complaint: This is a very pleasant 56-year-old patient of Dr. Cabello. followed by Dr. Saleem of the photostat operator, Dr. Daniel the oncologist and Dr. Floyd Medina from radiation oncology. Diagnosis of with lung cancer. Has only had radiation treatment and chemotherapy. Currently getting immunotherapy. For about a week patient been having increasing amount of cough. Bringing up some green yellow and bloody sputum. Appetite has been poor. Bowels are okay. At home uses 3 L of oxygen. Has been having weight loss. Significantly short of breath and some wheezing. Tired rundown. In the ER the patient was found to have a large sided pneumothorax. 13-[place] Thora-vent was placed by ER physician. Repeat chest x-ray showed continued pneumothorax. Patient is put on suction for about an hour and subsequent x-ray showed improvement. This morning patient still short of breath but slightly better. Tired. Continues to have his chronic low back pain which is significant July 31: Patient has some pneumothorax on the right side. Some air leak. Subcutaneous emphysema. Given his immunosuppressed state steroids discontinued by pulmonary. Patient's breathing a bit better today. Congested cough. Eating some. Tired. Short of breath. IV cefepime August 01: Dr. Holley detected Thora-vent and flushed the catheter./The tubing. Tubing was replaced. Congested cough continues. Oral intake fair. Diet. 4 L nasal cannula. Propped up in bed. August 02: Because of persistent pneumothorax and increasing subcu to [address] Holley discontinued the Thora-vent and placed a right-sided chest tube. Oral intake fair. On 4 L nasal cannula. August 03: ICU: This morning patient became more short of breath. Brought to the ICU. Intubated. Drips include norepinephrine, propofol. Patient sedated. Ventilator: FiO2 60% and a PEEP of 5. Sinus rhythm. Discussed with daughter the bedside. August 04: ICU. Ventilator: 50/5. Telemetry: Sinus rhythm. Intubated. Sedated. Drips include IV propofol and norepinephrine. Subcutaneous emphysema present. Discussed with daughter the bedside. August 05: ICU. Patient was extubated earlier today. On nasal cannula. 5 L. Right-sided chest tube. Sinus tachycardia. Daughter the bedside. Awake answering questions. Subcutis emphysema significant. Short of breath. August 06: ICU. On 5 L of nasal cannula. Significant subcutaneous emphysema. Now has gone to the face. Some sinus tachycardia. Right-sided chest tube. Eating some. Spoke to the patient and daughter the bedside. August 07: ICU. On 12 L high flow nasal cannula. Alternating between BiPAP. Subcutis emphysema. Eating about 25%. Daughter the bedside. Right chest tube in place. August 08: ICU. 11 L high flow nasal cannula. Did eat his food. Using BiPAP sometimes. Some decrease in subcutaneous emphysema. Daughter the bedside. Right chest tube remains in place. August 09: ICU. 11 L nasal cannula. Eating better. Decrease in subcutaneous emphysema. Daughter at the bedside. Right chest tube in place. Less swelling of the face. Active Medications Acetaminophen (Acetaminophen Tab 325 Mg Tab) 650 mg PO Q6HR PRN PRN Reason: Mild Pain or Fever > 100.5 Albuterol/Ipratropium (Ipratropium-Albuterol 3 Ml Neb) 3 ml INHALATION RT-QID [facility] Last Admin: 08/09/21 11:54 Dose: 3 ml Documented by: Albuterol/Ipratropium (Ipratropium-Albuterol 3 Ml Neb) 3 ml INHALATION RT-Q2H PRN PRN Reason: Shortness Of Breath Or Wheezing Cholestyramine Resin (Cholestyramine (With Sugar) 4 Gm Packet) 4 gm PO DAILY PRN PRN Reason: Diarrhea Enoxaparin Sodium (Enoxaparin 40 Mg/0.4 Ml Syringe) 40 mg SQ DAILY [facility] Last Admin: 08/09/21 08:22 Dose: 40 mg Documented by: Fentanyl (Fentanyl 100mcg/Hr Patch) 1 patch TRANSDERM Q72H [facility]; Protocol Last Admin: 08/08/21 00:48 Dose: 1 patch Documented by: Folic Acid (Folic Acid 1 Mg Tab) 1 mg PO DAILY@1200 [facility] Last Admin: 08/09/21 12:43 Dose: 1 mg Documented by: Gabapentin (Gabapentin 300 Mg Cap) 300 mg PO HS [facility] Last Admin: 08/08/21 20:12 Dose: 300 mg Documented by: Guaifenesin (Guaifenesin 600 Mg Tablet.Er) 600 mg PO Q12HR [facility] Last Admin: 08/09/21 08:22 Dose: 600 mg Documented by: Hydromorphone HCl (Hydromorphone 1 Mg/Ml 1 Ml Syringe) 1 mg IVP Q3HR PRN PRN Reason: severe Pain Last Admin: 08/09/21 12:43 Dose: 1 mg Documented by: Cefepime HCl 2 gm/ Sodium (Chloride) 100 mls @ 25 mls/hr IVPB Q8H [facility] Last Admin: 08/09/21 12:43 Dose: 25 mls/hr Documented by: Norepinephrine Bitartrate 8 mg (/ Sodium Chloride) 258 mls @ 4.388 mls/hr IV .Q24H [facility]; Protocol Last Admin: 08/09/21 09:33 Dose: Not Given Documented by: Lorazepam (Lorazepam 2 Mg/Ml Inj) 1 mg IV Q4HR PRN PRN Reason: Anxiety Last Admin: 08/09/21 10:00 Dose: 1 mg Documented by: Magnesium Oxide (Magnesium Oxide 400 Mg Tab) 400 mg PO HS [facility] Last Admin: 08/08/21 20:13 Dose: 400 mg Documented by: Melatonin (Melatonin 3 Mg Tablet) 3 mg PO HS PRN PRN Reason: Insomnia Methylprednisolone Sodium Succinate (Methylprednisolone Sod Succi 40 Mg/Ml 1 Ml Vial) 40 mg IV Q12HR [facility] Last Admin: 08/09/21 08:22 Dose: 40 mg Documented by: Metoclopramide HCl (Metoclopramide 5 Mg Tab) 5 mg PO TID PRN PRN Reason: Nausea Miscellaneous Information (Potassium Replacement Protocol 1 Each Misc) 1 each MISCELLANE DAILY PRN; Protocol PRN Reason: Per Protocol Multivitamins (Multivitamins, Thera 1 Each Tab) 1 each PO DAILY@1200 [facility] Last Admin: 08/09/21 12:43 Dose: 1 each Documented by: Naloxone HCl (Naloxone 0.4 Mg/Ml 1 Ml Vial) 0.2 mg IV Q2M PRN PRN Reason: Opioid Reversal Nystatin (Nystatin 100,000 Unit/Ml Susp 500,000 Unit/5 Ml Cup) 500,000 unit PO QID [facility] Last Admin: 08/09/21 08:31 Dose: 500,000 unit Documented by: Ondansetron HCl (Ondansetron Odt 4 Mg Tab) 4 mg PO Q6H PRN PRN Reason: Nausea And Vomiting Last Admin: 08/01/21 21:04 Dose: 4 mg Documented by: Oxycodone HCl (Oxycodone Hcl 5 Mg Tab) 10 mg PO Q4H PRN PRN Reason: Moderate Pain Last Admin: 08/09/21 03:39 Dose: 10 mg Documented by: Pantoprazole Sodium (Pantoprazole 40 Mg Tablet) 40 mg PO DAILY [facility] Last Admin: 08/09/21 08:22 Dose: 40 mg Documented by: Paroxetine HCl (Paroxetine 20 Mg Tab) 20 mg PO HS [facility] Last Admin: 08/08/21 20:14 Dose: 20 mg Documented by: Polyethylene Glycol (Polyethylene Glycol 3350 17 Gm Powd.Pack) 17 gm PO DAILY PRN PRN Reason: Constipation Last Admin: 08/09/21 13:14 Dose: 17 gm Documented by: Quetiapine Fumarate (Quetiapine 25 Mg Tab) 25 mg PO BID [facility] Last Admin: 08/09/21 08:31 Dose: 25 mg Documented by: Senna/Docusate Sodium (Sennosides-Docusate Sodium 1 Each Tab) 2 each PO BID [facility] Last Admin: 08/09/21 08:22 Dose: 2 each Documented by: Sodium Chloride (Sodium Chloride 0.9% Flush 10 Ml Syringe) 10 ml IV Q12HR [facility] Last Admin: 08/09/21 08:32 Dose: 10 ml Documented by: Sodium Chloride (Sodium Chloride 0.9% Flush 10 Ml Syringe) 10 ml IV DIRECTED PRN PRN Reason: FLUSH Thiamine HCl (Thiamine 100 Mg Tab) 100 mg PO DAILY@1200 [facility] Last Admin: 08/09/21 12:43 Dose: 100 mg Documented by: Past medical history to include: Lung cancer, COPD, GERD, Social history: Patient smoked a pack a day for about 37 years, stopped around 2018. 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 Lives with daughter. No alcohol. Family history: Lung cancer Physical examination: VITAL SIGNS: 98.2, 87, 22, 113/66, 98% 11 L GENERAL: Less short of breath.. [ Loss of muscle mass and subcutaneous fat]. Right-sided chest tube. Worsening Subcutaneous emphysema EYES: Pupils equal. Conjunctiva pale HEENT: External appearance of nose and ears normal, oral cavity grossly normal. Face more puffy NECK: JVD unable to assess; masses not palpable. HEART: First and second heart sounds are normal; no edema. LUNGS: Respiratory rate increased diminished breath sounds Right-sided chest tube. Subcutaneous emphysema decreased. ABDOMEN: Soft, nontender, liver spleen not palpable, no masses palpable. PSYCH: Awake, answering questions MUSCULOSKELETAL:No Clubbing/cyanosis;muscles-grossly intact. Evidence of OA INVESTIGATIONS, reviewed in the clinical context: August 09: White count 60 globin 10 platelets 244 potassium 4.1 creatinine 0.3 August 08: White count 5.5, benign 0.3and 3.4 creatinine 0.34 sodium 132 August 07: White count 10.1 hemoglobin 10.8 platelets 291 potassium 3.8 creatinine 0.37 August 06: White count 7.9 hemoglobin 9.4 potassium 3.7 creatinine 0.36. Chest x-ray: Worsening subcutaneous emphysema August 05: White count 13.6 hemoglobin 9 platelets 456 potassium 5 BUN 25 creatinine 0.5 for August 04: White count 13.5 hemoglobin 9.7 platelets were 85 potassium 4.6 creatinine 0.49 August 03: White count 14.4 hemoglobin 10.9 platelets 344 ABGs noted. Sodium 131 potassium 4.2 creatinine 0.5. Chest x-ray film: Pneumothorax minimal. Chest tube. Subcutaneous emphysema. Obesity right upper lobe. August 02: White count 9.7 hemoglobin 10.7 sodium 128 potassium 3.6 creatinine 0.45 August 01: White count 7.60 globin 10.2 albumin 2.9 Chest x-ray film personally reviewed by me [July 31]: Infiltrate. Some right-sided pneumothorax White count 8.3 hemoglobin 11.2 platelets 399 sodium 131 potassium 4.1 bicarb 32 BUN 14 creatinine 0.5 to EKG tracing personally reviewed by me-normal sinus rhythm. P pulmonale. T wave changes. Admission labs: Sodium 1:30 albumin 2.9 white count 13.4 hemoglobin 11 Chest x-ray film personally reviewed by [id number] pneumothorax. Right upper lobe mass Assessment and plan: -Right-sided pneumothorax, treated with Thora-vent in the ER. Chest tube placed on August 02. to suction -acute COPD exacerbation in a previous smoker.: Slow to respond DuoNeb. IV Solu-Medrol 40 mg every 12 -Acute hypoxic respiratory failure from pneumothorax and pneumonia: Slow to respond intubated on the ventilator August 03. Extubated August 05. Currently 11 L nasal cannula -Subcutaneous emphysema: improving -Chronic hypoxic respiratory failure from underlying COPD 2-3 L of oxygen at home -Hyponatremia from decreased oral intake: -Septic shock: Improved IV levo fed discontinued -Suspect underlying pneumonia with gram-negative organism Cefepime 2 g every 8 -Lung cancer with metastatic disease status post chemotherapy and radiation treatment. Currently on immunotherapy. -Anxiety not otherwise specified Paxil 20 mg daily at bedtime -Anorexia secondary to underlying malignancy Encourage oral intake -Severe protein calorie malnutrition from decreased oral intake from underlying malignancy Ensure. Dietitian. -GERD Protonix -Chronic Back pain from malignancy Duragesic patch 100 g, oxycodone 10 mg every 4 when necessary -Full code IV cefepime. DuoNeb. right-sided chest tube . Some improvement subcutaneous emphysema. 11 L nasal cannula. Alternating with BiPAP. Prognosis guarded.
[2021-08-09] MEDS ORDERED: bisacodyL 10 MG SUPP RECTAL STA (17:16)
[2021-08-09] MEDS ORDERED: FUROSEMIDE 10 MG/ML 4 ML VIAL IV STA (17:34)
[2021-08-09] MEDS: PARoxetine 20 MG TAB PO SCH (20:35)
[2021-08-09] MEDS: MAGNESIUM OXIDE 400 MG TAB PO SCH (20:35)
[2021-08-09] MEDS: GABAPENTIN 300 MG CAP PO SCH (20:35)
[2021-08-10] MEDS: NYSTATIN 100,000 UNIT/ML SUSP 500,000 UNIT/5 ML CUP PO SCH ×5 (00:02→20:25)
[2021-08-10] MEDS: IPRATROPIUM-ALBUTEROL 3 ML NEB INHALATION SCH ×4 (05:55→20:02)
[2021-08-10] MEDS: LORazepam 2 MG/ML INJ IV PRN ×4 (06:22→23:32)
[2021-08-10] MEDS: CEFEPIME 2 GM in SODIUM CHLORIDE 0.9% 100 ML IVPB SCH ×3 (06:39→19:53)
[2021-08-10 06:52] LABS: Basophils % (A) 0 %; Eosinophils % (A) 0 %; HCT 30.9 % (39.0-53.0); Hypochromasia Slight; Lymphocytes # (A) 0.4 k/uL (1.0-4.8); Lymphocytes % (A) 9 %; MCH 29.6 pg (25.0-35.0); MCHC 32.3 g/dL (31.0-37.0); MCV 91.6 fL (80.0-100.0); Monocytes # (A) 0.2 k/uL (0-1.0); Monocytes % (A) 5 %; Neutrophils # (A) 3.7 k/uL (1.3-7.7); Neutrophils % (A) 85 %; Platelet Count 238 k/uL (150-450); RBC 3.37 m/uL (4.30-5.90); RDW 15.9 % (11.5-15.5); WBC 4.4 k/uL (3.8-10.6)
[2021-08-10 07:09] LABS: African American GFR (CKD) >90 (>60 ml/min/1.73 sqM); Blood Urea Nitrogen 13 mg/dL (9-20); Calcium 8.1 mg/dL (8.4-10.2); Chloride 93 mmol/L (98-107); Glucose 98 mg/dL (74-99); Non-African American GFR(CKD) >90 (>60 ml/min/1.73 sqM); Potassium 3.8 mmol/L (3.5-5.1); Sodium 131 mmol/L (137-145)
[2021-08-10 07:15] LABS: Anion Gap -1 mmol/L
[2021-08-10 07:21] LABS: Carbon Dioxide 39 mmol/L (22-30)
[2021-08-10] MEDS: IPRATROPIUM-ALBUTEROL 3 ML NEB INHALATION PRN (08:24)
--- NOTE | 2021-08-10 08:44 | XR ---
EXAMINATION TYPE: XR chest 1V portable DATE OF EXAM: 08/10/2021 COMPARISON: 08/09/2021 INDICATION: Shortness of breath TECHNIQUE: Single frontal view of the chest is obtained. FINDINGS: The heart size is normal. The pulmonary vasculature is normal. Mild left lower lobe infiltrate is present. There appears to be hyperinflation. Subcutaneous emphysem a is present bilaterally. Right central venous catheter is present the tip in the superior vena cava region. IMPRESSION: 1. Scattered infiltrates, stable from comparison. 2. No pneumothorax evident. Subcutaneous emphysema has some improvement. 3. Right central venous catheter, stable
[2021-08-10] MEDS: NOREPINEPHRINE 8 MG in SODIUM CHLORIDE 0.9% 250 ML IV SCH (09:31)
[2021-08-10] MEDS: PANTOPRAZOLE 40 MG TABLET PO SCH (10:02)
[2021-08-10] MEDS: SENNOSIDES-DOCUSATE SODIUM 1 EACH TAB PO SCH ×2 (10:02→19:53)
[2021-08-10] MEDS: guaiFENesin 600 MG TABLET.ER PO SCH ×2 (10:02→19:52)
[2021-08-10] MEDS: QUEtiapine 25 MG TAB PO SCH ×2 (10:03→20:25)
[2021-08-10] MEDS: HYDROmorphone 1 MG/ML 1 ML SYRINGE IVP PRN ×4 (10:04→23:43)
[2021-08-10] MEDS: ENOXAPARIN 40 MG/0.4 ML SYRINGE SQ SCH (10:04)
[2021-08-10] MEDS: methylPREDNISolone SOD SUCCI 40 MG/ML 1 ML VIAL IV SCH (10:04)
--- NOTE | 2021-08-10 11:00 | P.PN ---
Subjective Progress Note Date: 08/10/21 Principal diagnosis: Acute hypoxic respiratory failure, multifactorial 08/03/2021, the patient is currently in the intensive care unit. 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 He became progressively more short of breath, lethargic, tachypneic, and he was using excessive muscle breathing. He was placed on a BiPAP and by the time he arrived to the ICU, he was quite somnolent and sleepy and lethargic. At that point, I intubated the patient with him on a mechanical ventilator. The right-sided chest tube was still in place. A chest x-ray was done post intubation showed a right apical pneumothorax. This appears emphysema on the right. ET tube is in a good location. Chest tube is in a good location. There is persistent air leak from the chest tube. there is no interval worsening in the size of the right-sided pneumothorax. Post intubation, the patient was kept on a rate of 24, tidal volume of 300, FiO2 of 100% with a PEEP of 5. Current pulse ox is 90%. Blood pressure is stable with a blood pressure of 90/64. Heart rate is 103, sinus. His, comfortable on propofol which is running at 20 mg/kg per minute. The patient also received a dose of Nimbex 10 mg IV push prior to intubation. The triple-lumen cath was also inserted in the left subclavian. He does have some subcutaneous emphysema along the left chest area.Blood work shows a white cell count of 14.4 with a hemoglobin of 10.9 and a platelet count of 344. His sodium level is at 131, BUN is at 40 with a creatinine of 0.5 from this morning. LFTs are within normal limits. Note that during the intubation process and under direct laryngoscopic evaluation, the patient had some purulent material accumulating in his posterior oropharynx and covering his epiglottis and vocal cords. He is currently on IV cefepime. While on a mechanical ventilator, is particularly pressures around 31. Reevaluated today on 08/04/2021, patient remains in the ICU, intubated and mechanically ventilated. His daughter is at bedside. Patient is on assist control rate of 24 tidal volume is 300 FiO2 50% and PEEP of 5. Peak airway pressure is 24.2 pressures 13. Patient's showed a pO2 of 106 pCO2 49 pH of 7.36, hence cut down his FiO2 to 45%, otherwise no changes in his vent settings. Patient is requiring norepinephrine at 0.12, propofol is at 50 IV fluids at KVO. Chest x-ray showed reexpansion of the right lung, significant subcutaneous emphysema is noted. Remains on antibiotics in the form of cefepime. Patient will be placed on pressure support mode of mechanical ventilation and CPAP if tolerated. However I will try to awaken the patient today, and possibly assess weaning parameters and proceed to weaning mode if possible and if tolerated. In the meantime patient has significant subcu emphysema, and I went ahead and plac ed a 14-gauge angiocatheter in the anterior chest wall for decompression of the subcutaneous emphysema. Patient's acute presentation of respiratory failure seems to be related to underlying COPD, large right-sided pneumothorax requiring chest tube placement, and he has a stage IV non-small cell lung cancer. Patient is on immunotherapy. Labs today were reviewed WBC count is 13.5 hemoglobin 9.7 left lites are normal renal profile is normal Reevaluated today on 08/05/2021, patient remains intubated mechanically ventilated, sedated, he is on assist control rate of 24 tidal volume 300 FiO2 40% PEEP of 5. ABG showed a pO2 of 93 pCO2 of 42 pH of 7.43. Patient remains on enteral tube feeding, he is on vital 1.5 at 50 mL per hour. Patient is on propofol which I placed on hold planning to wean and extubate the patient. He is also on norepinephrine at 0.03 mcg/kg/m. Right-sided chest tube remains in place, no air leak is noted, however the patient seems to be developing worsening subcutaneous emphysema. There is no evidence of pneumothorax. Patient is arousable, follows simple instructions, but intermittently seems to be a bit agitated, hence I started the patient on Precedex, I discontinued his propofol, and I plan to give the patient a weaning trial and hopefully extubate today. Chest x-ray shows right-sided volume loss with multifocal right lung opacities and the right hilar mass like opacity and evidence of subcutaneous emphysema noted WBC count is 13.6 hemoglobin is 9 electrolytes are normal renal profile is normal bicarb is 27 Reevaluated today on 08/06/2021, patient remains in the ICU, he was extubated yesterday, tolerated the extubation well. He is now on 4 L nasal cannula, no major issues over the last 24 hours except he continues to have a chest tube on the right side, positive air leak, and he continues to have significant worsening subcutaneous emphysema. Chest x-ray is basically unchanged. Continues to have significant subcutaneous emphysema, and the findings on the right lung are basically the same. Patient is comfortable, he is not in distress. Afebrile, vital signs are stable. No labs were done today on this patient Reevaluated today on 08/07/2021, remains in the ICU, patient has been tolerating the extubation well for the last few days, however he remains marginal at best. Patient had to be placed back on BiPAP yesterday, he is requiring intermittent Dilaudid and Ativan to keep him calm. Overall not much of a change except he is off mechanical ventilation, continues to have significant subcutaneous emphysema but improving. When off BiPAP, the patient is on 15 L high flow cannula. He is off Precedex today. But again requiring Ativan and Dilaudid. Has been alternating between high flow cannula and BiPAP. WBC count today is 10 hemoglobin is 10.8 electrolytes are normal renal profile is normal, chest x-ray continues to show subcutaneous emphysema no visualized the right-sided pneumothorax, right-sided chest tube in place, I don't even see a leak this morning on the chest tube Pleur-evac. Reevaluated today on 08/09/2021, patient remains in the ICU, he is now on high flow nasal cannula, 10 L/m, he is not using BiPAP for the last 24 hours. Patient is feeling much better today compared to the last few days, his subcutan eous emphysema is significantly better. Chest x-ray is showing definite improvement. There is no evidence of air leak and the chest tube, hence this was placed off wall suction. WBC count is 6 hemoglobin 10 electrolytes are normal except for slightly low sodium of 131 electrolytes are otherwise okay and history of profile is normal Reevaluated today on 08/10/2021, patient remains in the ICU, clinical status remains marginal at best. Patient is intermittently requiring BiPAP, and he seems to require intermittent sedation as he becomes quite anxious, agitated, and has to be given some sedation to calm him down. Chest x-ray is about the same. He is now back on BiPAP, his subcutaneous emphysema is improving. no air leak in the chest tube, will consider placing the tube off suction. Objective - Vital Signs Vital signs: Vital Signs Temp 98.2 F 08/10/21 04:00 Pulse 96 08/10/21 09:00 Resp 16 08/10/21 09:00 BP 101/67 08/10/21 09:00 Pulse Ox 96 08/10/21 09:00 Intake & Output 08/09/21 08/10/21 08/10/21 18:59 06:59 18:59 Intake Total 110 110 40 Output Total 1495 3855 270 Balance -8905 -4234 -230 Weight 51 kg Intake: IV 110 110 40 ns 110 110 40 Output: Urine 1495 3855 270 Other: Voiding Method Indwelling Catheter Indwelling Catheter Indwelling Catheter ABP, PAP, CO, CI - Last Documented Arterial Blood Pressure 103/56 - Exam GENERAL EXAM: Revealed 56-year-old white male on BiPAP at present, he is on IPAP of 14 EPAP of 6 and on 100 percent FiO2. HEAD: Normocephalic. Atraumatic. HEENT: PERRLA, EOMI, nonicteric, no neck masses, no JVD, subcutaneous emphysema is noted. CHEST: Symmetrical chest expansion, significant subcutaneous emphysema noted in the anterior chest wall area. Crackles at the bases. Right Sided chest tube is noted, no air leak is noted CVS: S1 and S2 normal with no audible murmur, regular rhythm. ABDOMEN: Soft nontender no megaly no rebound no guarding. SPINE: No scoliosis or deformity SKIN: No rashes CENTRAL NERVOUS SYSTEM: No focal deficits, tone is normal in all 4 extremities EXTREMITIES: There is no peripheral edema. No clubbing, no cyanosis. Peripheral pulses are intact. - Labs CBC & Chem 7: 08/10/21 06:30 08/10/21 06:30 Labs: Abnormal Lab Results - Last 24 Hours (Table) 08/10/21 08/10/21 Range/Units 06:30 06:30 RBC 3.37 L (4.30-5.90) m/uL Hgb 10.0 L (13.0-17.5) gm/dL Hct 30.9 L (39.0-53.0) % RDW 15.9 H (11.5-15.5) % Lymphocytes # 0.4 L (1.0-4.8) k/uL Sodium 131 L (137-145) mmol/L Chloride 93 L (98-107) mmol/L Carbon Dioxide 39 H (22-30) mmol/L Creatinine 0.34 L (0.66-1.25) mg/dL Calcium 8.1 L (8.4-10.2) mg/dL Assessment and Plan Assessment: Acute on chronic hypoxemic respiratory failure , multifactorial as the patient has COPD, lung cancer, and a acute right-sided large pneumothorax. Requiring chest tube placement. Stage IV a poorly differentiated non-small cell lung cancer diagnosed in June of 2020. Recent hospitalization for right lower lobe pneumonia secondary to Pseudomonas discharged on 07/03 Tobacco dependence syndrome. Subcutaneous emphysema secondary to right-sided pneumothorax, status post chest tube insertion. Recommendation: Continue to monitor the patient in the ICU. Patient was extubated on 08/05, tolerated extubation well, intermittently requiring BiPAP. Continue antibiotics/cefepime. Continue bronchodilators and IV Solu-Medrol. Will transition to prednisone. Continue Lovenox for DVT prophylaxis. Continue IV Protonix. Right-sided chest tube , not quite ready to be removed until the patient shows significant clinical improvement keep patient in the ICU for now, patient is marginal at best. Time with Patient: Less than 30
--- NOTE | 2021-08-10 14:18 | P.PN ---
Progress Note - Text Progress Note Date: 08/10/21 Chief Complaint: Cough with sputum History of presenting complaint: This is a very pleasant 56-year-old patient of Dr. Cabello. followed by Dr. Saleem of the ex assistant/program director, Dr. Daniel the oncologist and Dr. Floyd Medina from radiation oncology. Diagnosis of with lung cancer. Has only had radiation treatment and chemotherapy. Currently getting immunotherapy. For about a week patient been having increasing amount of cough. Bringing up some green yellow and bloody sputum. Appetite has been poor. Bowels are okay. At home uses 3 L of oxygen. Has been having weight loss. Significantly short of breath and some wheezing. Tired rundown. In the ER the patient was found to have a large sided pneumothorax. [place]izen [place] Thora-vent was placed by ER physician. Repeat chest x-ray showed continued pneumothorax. Patient is put on suction for about an hour and subsequent x-ray showed improvement. This morning patient still short of breath but slightly better. Tired. Continues to have his chronic low back pain which is significant July 31: Patient has some pneumothorax on the right side. Some air leak. Subcutaneous emphysema. Given his immunosuppressed state steroids discontinued by pulmonary. Patient's breathing a bit better today. Congested cough. Eating some. Tired. Short of breath. IV cefepime August 01: Dr. Holley detected Thora-vent and flushed the catheter./The tubing. Tubing was replaced. Congested cough continues. Oral intake fair. Diet. 4 L nasal cannula. Propped up in bed. August 02: Because of persistent pneumothorax and increasing subcu to [address] Holley discontinued the Thora-vent and placed a right-sided chest tube. Oral intake fair. On 4 L nasal cannula. August 03: ICU: This morning patient became more short of breath. Brought to the ICU. Intubated. Drips include norepinephrine, propofol. Patient sedated. Ventilator: FiO2 60% and a PEEP of 5. Sinus rhythm. Discussed with daughter the bedside. August 04: ICU. Ventilator: 50/5. Telemetry: Sinus rhythm. Intubated. Sedated. Drips include IV propofol and norepinephrine. Subcutaneous emphysema present. Discussed with daughter the bedside. August 05: ICU. Patient was extubated earlier today. On nasal cannula. 5 L. Right-sided chest tube. Sinus tachycardia. Daughter the bedside. Awake answering questions. Subcutis emphysema significant. Short of breath. August 06: ICU. On 5 L of nasal cannula. Significant subcutaneous emphysema. Now has gone to the face. Some sinus tachycardia. Right-sided chest tube. Eating some. Spoke to the patient and daughter the bedside. August 07: ICU. On 12 L high flow nasal cannula. Alternating between BiPAP. Subcutis emphysema. Eating about 25%. Daughter the bedside. Right chest tube in place. August 08: ICU. 11 L high flow nasal cannula. Did eat his food. Using BiPAP sometimes. Some decrease in subcutaneous emphysema. Daughter the bedside. Right chest tube remains in place. August 09: ICU. 11 L nasal cannula. Eating better. Decrease in subcutaneous emphysema. Daughter at the bedside. Right chest tube in place. Less swelling of the face. August 10: ICU. Patient between BiPAP and high flow nasal cannula 15 L. Today was short of breath. Sinus tachycardia. and daughter the bedside. Right chest tube in place. Did eat some. I spoke to the . Prognosis guarded. Active Medications Acetaminophen (Acetaminophen Tab 325 Mg Tab) 650 mg PO Q6HR PRN PRN Reason: Mild Pain or Fever > 100.5 Albuterol/Ipratropium (Ipratropium-Albuterol 3 Ml Neb) 3 ml INHALATION RT-QID [facility] Last Admin: 08/10/21 12:19 Dose: 3 ml Documented by: Albuterol/Ipratropium (Ipratropium-Albuterol 3 Ml Neb) 3 ml INHALATION RT-Q2H PRN PRN Reason: Shortness Of Breath Or Wheezing Last Admin: 08/10/21 08:24 Dose: 3 ml Documented by: Cholestyramine Resin (Cholestyramine (With Sugar) 4 Gm Packet) 4 gm PO DAILY PRN PRN Reason: Diarrhea Enoxaparin Sodium (Enoxaparin 40 Mg/0.4 Ml Syringe) 40 mg SQ DAILY [facility] Last Admin: 08/10/21 10:04 Dose: 40 mg Documented by: Fentanyl (Fentanyl 100mcg/Hr Patch) 1 patch TRANSDERM Q72H [facility]; Protocol Last Admin: 08/08/21 00:48 Dose: 1 patch Documented by: Folic Acid (Folic Acid 1 Mg Tab) 1 mg PO DAILY@1200 [facility] Last Admin: 08/09/21 12:43 Dose: 1 mg Documented by: Gabapentin (Gabapentin 300 Mg Cap) 300 mg PO HS [facility] Last Admin: 08/09/21 20:35 Dose: 300 mg Documented by: Guaifenesin (Guaifenesin 600 Mg Tablet.Er) 600 mg PO Q12HR [facility] Last Admin: 08/10/21 10:02 Dose: 600 mg Documented by: Hydromorphone HCl (Hydromorphone 1 Mg/Ml 1 Ml Syringe) 1 mg IVP Q3HR PRN PRN Reason: severe Pain Last Admin: 08/10/21 10:04 Dose: 1 mg Documented by: Cefepime HCl 2 gm/ Sodium (Chloride) 100 mls @ 25 mls/hr IVPB Q8H [facility] Last Admin: 08/10/21 06:39 Dose: 25 mls/hr Documented by: Norepinephrine Bitartrate 8 mg (/ Sodium Chloride) 258 mls @ 4.388 mls/hr IV .Q24H [facility]; Protocol Last Admin: 08/10/21 09:31 Dose: Not Given Documented by: Lorazepam (Lorazepam 2 Mg/Ml Inj) 1 mg IV Q4HR PRN PRN Reason: Anxiety Last Admin: 08/10/21 12:43 Dose: 1 mg Documented by: Magnesium Oxide (Magnesium Oxide 400 Mg Tab) 400 mg PO HS [facility] Last Admin: 08/09/21 20:35 Dose: 400 mg Documented by: Melatonin (Melatonin 3 Mg Tablet) 3 mg PO HS PRN PRN Reason: Insomnia Metoclopramide HCl (Metoclopramide 5 Mg Tab) 5 mg PO TID PRN PRN Reason: Nausea Miscellaneous Information (Potassium Replacement Protocol 1 Each Misc) 1 each MISCELLANE DAILY PRN; Protocol PRN Reason: Per Protocol Multivitamins (Multivitamins, Thera 1 Each Tab) 1 each PO DAILY@1200 [facility] Last Admin: 08/09/21 12:43 Dose: 1 each Documented by: Naloxone HCl (Naloxone 0.4 Mg/Ml 1 Ml Vial) 0.2 mg IV Q2M PRN PRN Reason: Opioid Reversal Nystatin (Nystatin 100,000 Unit/Ml Susp 500,000 Unit/5 Ml Cup) 500,000 unit PO QID [facility] Last Admin: 08/10/21 10:03 Dose: 500,000 unit Documented by: Ondansetron HCl (Ondansetron Odt 4 Mg Tab) 4 mg PO Q6H PRN PRN Reason: Nausea And Vomiting Last Admin: 08/01/21 21:04 Dose: 4 mg Documented by: Oxycodone HCl (Oxycodone Hcl 5 Mg Tab) 10 mg PO Q4H PRN PRN Reason: Moderate Pain Last Admin: 08/10/21 02:04 Dose: 10 mg Documented by: Pantoprazole Sodium (Pantoprazole 40 Mg Tablet) 40 mg PO DAILY [facility] Last Admin: 08/10/21 10:02 Dose: 40 mg Documented by: Paroxetine HCl (Paroxetine 20 Mg Tab) 20 mg PO HS [facility] Last Admin: 08/09/21 20:35 Dose: 20 mg Documented by: Polyethylene Glycol (Polyethylene Glycol 3350 17 Gm Powd.Pack) 17 gm PO DAILY PRN PRN Reason: Constipation Last Admin: 08/09/21 13:14 Dose: 17 gm Documented by: Prednisone (Prednisone 10 Mg Tab) 30 mg PO DAILY [facility] Quetiapine Fumarate (Quetiapine 25 Mg Tab) 25 mg PO BID [facility] Last Admin: 08/10/21 10:03 Dose: 25 mg Documented by: Senna/Docusate Sodium (Sennosides-Docusate Sodium 1 Each Tab) 2 each PO BID [facility] Last Admin: 08/10/21 10:02 Dose: 2 each Documented by: Sodium Chloride (Sodium Chloride 0.9% Flush 10 Ml Syringe) 10 ml IV Q12HR [facility] Last Admin: 08/10/21 10:37 Dose: 10 ml Documented by: Sodium Chloride (Sodium Chloride 0.9% Flush 10 Ml Syringe) 10 ml IV DIRECTED PRN PRN Reason: FLUSH Thiamine HCl (Thiamine 100 Mg Tab) 100 mg PO DAILY@1200 [facility] Last Admin: 08/09/21 12:43 Dose: 100 mg Documented by: Past medical history to include: Lung cancer, COPD, GERD, Social history: Patient smoked a pack a day for about 37 years, stopped around 2018. 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 Lives with daughter. No alcohol. Family history: Lung cancer Physical examination: VITAL SIGNS: Afebrile, 106, 23, 111/76, 93% on 15 L GENERAL: More short of breath.. [ Loss of muscle mass and subcutaneous fat]. Right-sided chest tube. Worsening Subcutaneous emphysema EYES: Pupils equal. Conjunctiva pale HEENT: External appearance of nose and ears normal, oral cavity grossly normal. Face more puffy NECK: JVD unable to assess; masses not palpable. HEART: First and second heart sounds are normal; no edema. LUNGS: Unable to speak in full sentences, Respiratory rate increased diminished breath sounds Right-sided chest tube. Subcutaneous emphysema decreased. ABDOMEN: Soft, nontender, liver spleen not palpable, no masses palpable. PSYCH: Awake, answering questions MUSCULOSKELETAL:No Clubbing/cyanosis;muscles-grossly intact. Evidence of OA INVESTIGATIONS, reviewed in the clinical context: August 10: White count 4.4 hemoglobin 10 potassium 3.8 creatinine 0.34 sodium 131 August 09: White count 60 globin 10 platelets 244 potassium 4.1 creatinine 0.3 August 08: White count 5.5, benign 0.3and 3.4 creatinine 0.34 sodium 132 August 07: White count 10.1 hemoglobin 10.8 platelets 291 potassium 3.8 creatinine 0.37 August 06: White count 7.9 hemoglobin 9.4 potassium 3.7 creatinine 0.36. Chest x-ray: Worsening subcutaneous emphysema August 05: White count 13.6 hemoglobin 9 platelets 456 potassium 5 BUN 25 creatinine 0.5 for August 04: White count 13.5 hemoglobin 9.7 platelets were 85 potassium 4.6 creatinine 0.49 August 03: White count 14.4 hemoglobin 10.9 platelets 344 ABGs noted. Sodium 131 potassium 4.2 creatinine 0.5. Chest x-ray film: Pneumothorax minimal. Chest tube. Subcutaneous emphysema. Obesity right upper lobe. August 02: White count 9.7 hemoglobin 10.7 sodium 128 potassium 3.6 creatinine 0.45 August 01: White count 7.60 globin 10.2 albumin 2.9 Chest x-ray film personally reviewed by me [July 31]: Infiltrate. Some right-sided pneumothorax White count 8.3 hemoglobin 11.2 platelets 399 sodium 131 potassium 4.1 bicarb 32 BUN 14 creatinine 0.5 to EKG tracing personally reviewed by me-normal sinus rhythm. P pulmonale. T wave changes. Admission labs: Sodium 1:30 albumin 2.9 white count 13.4 hemoglobin 11 Chest x-ray film personally reviewed by [id number] pneumothorax. Right upper lobe mass Assessment and plan: -Right-sided pneumothorax, treated with Thora-vent in the ER. Chest tube placed on August 02. to suction -acute COPD exacerbation in a previous smoker.: Slow to respond DuoNeb. IV Solu-Medrol 40 mg every 12-changed over to prednisone -Acute hypoxic respiratory failure from pneumothorax and pneumonia: Worsening intubated on the ventilator August 03. Extubated August 05. Currently 15 L nasal cannula -Subcutaneous emphysema: improving -Chronic hypoxic respiratory failure from underlying COPD 2-3 L of oxygen at home -Hyponatremia from decreased oral intake: -Septic shock: Improved IV levo fed discontinued -Suspect underlying pneumonia with gram-negative organism Cefepime 2 g every 8 -Lung cancer with metastatic disease status post chemotherapy and radiation treatment. Currently on immunotherapy. -Anxiety not otherwise specified Paxil 20 mg daily at bedtime -Anorexia secondary to underlying malignancy Encourage oral intake -Severe protein calorie malnutrition from decreased oral intake from underlying malignancy Ensure. Dietitian. -GERD Protonix -Chronic Back pain from malignancy Duragesic patch 100 g, oxycodone 10 mg every 4 when necessary -Full code IV cefepime. DuoNeb. right-sided chest tube . 15 L nasal cannula. Alternating with BiPAP. More short of breath. Discussed with the at the bedside. Prognosis guarded.
[2021-08-10] MEDS: FOLIC ACID 1 MG TAB PO SCH (15:19)
[2021-08-10] MEDS: MULTIVITAMINS, THERA 1 EACH TAB PO SCH (15:19)
[2021-08-10] MEDS: predniSONE 10 MG TAB PO SCH (15:19)
[2021-08-10] MEDS: THIAMINE 100 MG TAB PO SCH (15:20)
[2021-08-10] MEDS: GABAPENTIN 300 MG CAP PO SCH (19:53)
[2021-08-10] MEDS: PARoxetine 20 MG TAB PO SCH (19:53)
[2021-08-10] MEDS: MAGNESIUM OXIDE 400 MG TAB PO SCH (19:53)
[2021-08-11] MEDS: HYDROmorphone 1 MG/ML 1 ML SYRINGE IVP PRN ×2 (03:11→05:55)
[2021-08-11] MEDS: LORazepam 2 MG/ML INJ IV PRN (04:58)
[2021-08-11] MEDS: IPRATROPIUM-ALBUTEROL 3 ML NEB INHALATION PRN (05:23)
[2021-08-11] MEDS: CEFEPIME 2 GM in SODIUM CHLORIDE 0.9% 100 ML IVPB SCH (05:27)
[2021-08-11] MEDS: NYSTATIN 100,000 UNIT/ML SUSP 500,000 UNIT/5 ML CUP PO SCH ×4 (08:01→20:13)
[2021-08-11] MEDS: PANTOPRAZOLE 40 MG TABLET PO SCH (08:01)
[2021-08-11] MEDS: QUEtiapine 25 MG TAB PO SCH ×2 (08:01→20:13)
[2021-08-11] MEDS: predniSONE 10 MG TAB PO SCH (08:01)
[2021-08-11] MEDS: guaiFENesin 600 MG TABLET.ER PO SCH (08:01)
[2021-08-11] MEDS: ENOXAPARIN 40 MG/0.4 ML SYRINGE SQ SCH (08:02)
[2021-08-11] MEDS: NOREPINEPHRINE 8 MG in SODIUM CHLORIDE 0.9% 250 ML IV SCH ×2 (08:02→09:58)
[2021-08-11] MEDS: SENNOSIDES-DOCUSATE SODIUM 1 EACH TAB PO SCH ×2 (08:03→20:13)
[2021-08-11 08:15] LABS: Basophils % (A) 0 %; Eosinophils % (A) 0 %; HCT 31.2 % (39.0-53.0); HGB 9.7 gm/dL (13.0-17.5); Hypochromasia Moderate; Lymphocytes # (A) 0.4 k/uL (1.0-4.8); Lymphocytes % (A) 4 %; MCH 28.5 pg (25.0-35.0); MCV 91.9 fL (80.0-100.0); Mean Platelet Volume 7.6; Monocytes # (A) 0.3 k/uL (0-1.0); Monocytes % (A) 3 %; Neutrophils # (A) 9.4 k/uL (1.3-7.7); Neutrophils % (A) 92 %; Platelet Count 255 k/uL (150-450); RBC 3.39 m/uL (4.30-5.90); RDW 15.9 % (11.5-15.5); WBC 10.2 k/uL (3.8-10.6)
--- NOTE | 2021-08-11 08:17 | XR ---
EXAMINATION TYPE: XR chest 1V portable DATE OF EXAM: 08/11/2021 COMPARISON: X-ray dated 08/10/2021 HISTORY: Follow-up, shortness of breath TECHNIQUE: Single frontal view of the chest is obtained. FINDINGS: Newly seen right-sided pneumothorax measuring up to 2 cm in the right lung apex and 2 cm in the later al aspect of the right lung base. Progressive infiltration in the right upper lung zone. No significa nt cardiac or mediastinal shift to the left side. Unchanged left lung. No sizable pleural effusion. No gross cardiomegaly. Unchanged right central veno us line. Persistent right chest wall soft tissue emphysema. IMPRESSION: Newly seen right-sided pneumothorax as described above. Progressive infiltration of the right upper l estrella zone. Findings were discussed with the nurse taking care of the patient immediately after the x-ray was per formed.
[2021-08-11 08:29] LABS: ALT 9 U/L (4-49); AST 15 U/L (17-59); African American GFR (CKD) >90 (>60 ml/min/1.73 sqM); Albumin 2.2 g/dL (3.5-5.0); Alkaline Phosphatase 55 U/L (38-126); Anion Gap -5 mmol/L; Blood Urea Nitrogen 14 mg/dL (9-20); Calcium 8.2 mg/dL (8.4-10.2); Chloride 96 mmol/L (98-107); Glucose 98 mg/dL (74-99); Magnesium 1.9 mg/dL (1.6-2.3); Non-African American GFR(CKD) >90 (>60 ml/min/1.73 sqM); Potassium 4.3 mmol/L (3.5-5.1); Sodium 131 mmol/L (137-145); Total Bilirubin 0.5 mg/dL (0.2-1.3); Total Protein 4.8 g/dL (6.3-8.2)
[2021-08-11 08:36] LABS: Carbon Dioxide 40 mmol/L (22-30)
[2021-08-11] MEDS ORDERED: CISATRACURIUM 2 MG/ML 5 ML VIAL IV ONE (08:50)
[2021-08-11] MEDS ORDERED: MORPHINE SULFATE 10 MG/ML 1ML VIAL IVP STA (08:51)
[2021-08-11] MEDS ORDERED: LORazepam 2 MG/ML INJ IV STA (08:51)
[2021-08-11] MEDS ORDERED: SUCCINYLCHOLINE CHLORIDE VIAL 200 MG/10 ML VIAL IV ONE (08:56)
[2021-08-11] MEDS: IPRATROPIUM-ALBUTEROL 3 ML NEB INHALATION SCH ×4 (09:23→20:03)
[2021-08-11] MEDS: CHLORHEXIDINE GLUCONATE 15 ML CUP MUCOUS MEM SCH ×2 (09:25→20:12)
--- NOTE | 2021-08-11 09:56 | P.PN ---
Subjective Progress Note Date: 08/11/21 Principal diagnosis: Respiratory failure Reevaluated today on 08/05/2021, patient remains intubated mechanically ventilated, sedated, he is on assist control rate of 24 tidal volume 300 FiO2 40% PEEP of 5. ABG showed a pO2 of 93 pCO2 of 42 pH of 7.43. Patient remains on enteral tube feeding, he is on vital 1.5 at 50 mL per hour. Patient is on propofol which I placed on hold planning to wean and extubate the patient. He is also on norepinephrine at 0.03 mcg/kg/m. Right-sided chest tube remains in place, no air leak is noted, however the patient seems to be developing wor sening subcutaneous emphysema. There is no evidence of pneumothorax. Patient is arousable, follows simple instructions, but intermittently seems to be a bit agitated, hence I started the patient on Precedex, I discontinued his propofol, and I plan to give the patient a weaning trial and hopefully extubate today. Chest x-ray shows right-sided volume loss with multifocal right lung opacities and the right hilar mass like opacity and evidence of subcutaneous emphysema noted WBC count is 13.6 hemoglobin is 9 electrolytes are normal renal profile is normal bicarb is 27 Reevaluated today on 08/06/2021, patient remains in the ICU, he was extubated yesterday, tolerated the extubation well. He is now on 4 L nasal cannula, no major issues over the last 24 hours except he continues to have a chest tube on the right side, positive air leak, and he continues to have significant worsening subcutaneous emphysema. Chest x-ray is basically unchanged. Continues to have significant subcutaneous emphysema, and the findings on the right lung are basically the same. Patient is comfortable, he is not in distress. Afebrile, vital signs are stable. No labs were done today on this patient Reevaluated today on 08/07/2021, remains in the ICU, patient has been tolerating the extubation well for the last few days, however he remains marginal at best. Patient had to be placed back on BiPAP yesterday, he is requiring intermittent Dilaudid and Ativan to keep him calm. Overall not much of a change except he is off mechanical ventilation, continues to have significant subcutaneous emphysema but improving. When off BiPAP, the patient is on 15 L high flow cannula. He is off Precedex today. But again requiring Ativan and Dilaudid. Has been alternating between high flow cannula and BiPAP. WBC count today is 10 hemoglobin is 10.8 electrolytes are normal renal profile is normal, chest x-ray continues to show subcutaneous emphysema no visualized the right-sided pneumothorax, right-sided chest tube in place, I don't even see a leak this morning on the chest tube Pleur-evac. Reevaluated today on 08/09/2021, patient remains in the ICU, he is now on high flow nasal cannula, 10 L/m, he is not using BiPAP for the last 24 hours. Patient is feeling much better today compared to the last few days, his subcutaneous emphysema is significantly better. Chest x-ray is showing definite improvement. There is no evidence of air leak and the chest tube, hence this was placed off wall suction. WBC count is 6 hemoglobin 10 electrolytes are normal except for slightly low sodium of 131 electrolytes are otherwise okay and history of profile is normal Reevaluated today on 08/10/2021, patient remains in the ICU, clinical status remains marginal at best. Patient is intermittently requiring BiPAP, and he seems to require intermittent sedation as he becomes quite anxious, agitated, and has to be given some sedation to calm him down. Chest x-ray is about the same. He is now back on BiPAP, his subcutaneous emphysema is improving. no air leak in the chest tube, will consider placing the tube off suction. Progress note dated 08/11/2021. The patient is again seen in the ICU, room 262. The patient was initially admitted on July 29. Patient came in with a diagnosis of lung cancer, right pneumothorax, and COPD exacerbation. A right chest tube was placed. The patient was in the ICU beginning on August 03. The patient required intubation on the same day, and was extubated on 08/05/2021. Unfortunately, today, the patient is in respiratory distress, and required reintubation. His done at the bedside by myself and Dr. Villaseoñr. The patient previously was on BiPAP at 14/6 and 65%. The patient was getting saline at 10 mL an hour. The patient was quite tachypnea. Additionally, we did ask the patient if he wanted reintubation. Initially shook his head no. I spoke to the daughter. She stated that yesterday the patient would want to go back on life support. Because of the patient's indecision, we went ahead and intubated the patient concerned for his safety. The patient was placed on previously ventilator settings and FiO2 volume percent, PEEP of 5, tidal volume 300, and a respiratory rate of 24. Chest x-ray showed a worsening right-sided pneumothorax. An NG tube was noted. Arterial blood gases will be done. Labs from today show white count of 10.2, hemoglobin 9.7, hematocrit 31.2, platelet count 255,000. Sodium 131, potassium 4.3, chlorides 96, CO2 40, BUN 14, creatinine 0.32. Albumin is only 2.2. Sputum from August 03 shows pseudomonas aeruginosa. The patient is currently on cefepime. Objective - Vital Signs Vital signs: Vital Signs Temp 98.6 F 08/11/21 08:00 Pulse 120 H 08/11/21 09:00 Resp 29 H 08/11/21 09:00 BP 112/82 08/11/21 09:00 Pulse Ox 91 L 08/11/21 09:00 Intake & Output 08/10/21 08/11/21 08/11/21 18:59 06:59 18:59 Intake Total 120 130 20 Output Total 520 615 65 Balance -400 -485 -45 Weight 51.2 kg Intake: IV 120 130 20 0.9 Normal Saline @ 10mL/ 120 130 20 hr Output: Chest Tube Drainage 0 Chest Tube Right Anterior 0 Chest Urine 520 615 65 Other: Voiding Method Indwelling Catheter Indwelling Catheter ABP, PAP, CO, CI - Last Documented Arterial Blood Pressure 144/74 - Exam Somnolent/lethargic, in obvious respiratory distress, with respiratory rates in the high 30s and low 40s. BiPAP mask in place. HEENT examination is grossly unremarkable. Neck supple. Full range of motion. No adenopathy thyromegaly or neck vein distention. Cardiovascular examination reveals regular rhythm rate. S1-S2 normal. No S3 or S4. No discernible murmur noted. Heart sounds distant. Heart rate 120 bpm. Lungs reveal coarse inspiratory and expiratory rhonchi and expiratory wheezes. No crackles. Breath sounds equal bilaterally. Abdomen soft, without bowel sounds. No masses. Extremities are intact. No cyanosis clubbing or edema. Skin is without rash or lesion. Neurologic examination reveals a poorly responsive somewhat lethargic individual. - Labs CBC & Chem 7: 08/11/21 07:50 02/14/22 07:50 Labs: Abnormal Lab Results - Last 24 Hours (Table) 08/11/21 08/11/21 Range/Units 07:50 07:50 RBC 3.39 L (4.30-5.90) m/uL Hgb 9.7 L (13.0-17.5) gm/dL Hct 31.2 L (39.0-53.0) % RDW 15.9 H (11.5-15.5) % Neutrophils # 9.4 H (1.3-7.7) k/uL Lymphocytes # 0.4 L (1.0-4.8) k/uL Sodium 131 L (137-145) mmol/L Chloride 96 L (98-107) mmol/L Carbon Dioxide 40 H (22-30) mmol/L Creatinine 0.32 L (0.66-1.25) mg/dL Calcium 8.2 L (8.4-10.2) mg/dL AST 15 L (17-59) U/L Total Protein 4.8 L (6.3-8.2) g/dL Albumin 2.2 L (3.5-5.0) g/dL Assessment and Plan Assessment: Acute on chronic hypoxemic respiratory failure, with intubation on 08/03/2021, and extubation on 08/05/2021, and reintubation on 08/11/2021. History of stage IV, poorly differentiated, non-small cell lung cancer, status post chemotherapy, radiation therapy, and ongoing immunotherapy. Acute right-sided pneumothorax, status/post right chest tube. Recent hospitalization for right lower lobe pneumonia secondary to pseudomonas aeruginosa, discharged on 07/03/2021. Tobacco dependence syndrome. Subcutaneous emphysema secondary to right-sided pneumothorax. Plan: Plan dated 08/11/2021. The patient was reintubated by myself and our nurse practitioner. An NG tube was placed. A repeat blood gas will be done. The patient was given Ativan, morphine, succinylcholine, and Nimbex, for rapid sequence intubation. The patient tolerated the procedure well. Another chest tube will be placed on the right side. We will attempt a directed to the right apex. The right-sided pneumothorax is a bit larger on chest x-ray. Unnecessary medications were discontinued. The cefepime was discontinued for the Pseudomonas in the sputum, on 08/03/2021. We will continue to follow make recommendations where appropriate. Prognosis is guarded. I did speak to the patient and the patient's daughter prior to reintubation. Time with Patient: Greater than 30
[2021-08-11 10:08] LABS: ABG Base Excess 13.4 mmol/L; ABG HCO3 39 mmol/L (21-25); ABG Oxygen Saturation 96.6 % (94-97); ABG PH 7.35 (7.35-7.45); ABG PO2 101 mmHg (83-108); ABG TCO2 41 mmol/L (19-24)
[2021-08-11 10:10] LABS: ABG PCO2 72 mmHg (35-45); Allen Test Performed? no
--- NOTE | 2021-08-11 10:13 | XR ---
EXAMINATION TYPE: XR chest 1V portable DATE OF EXAM: 08/11/2021 COMPARISON: X-ray performed earlier same day HISTORY: Follow-up TECHNIQUE: Single frontal view of the chest is obtained. FINDINGS: Persistent right-sided pneumothorax measuring up to 4 cm in the right lung base, compared to 2 cm pre viously. This could be due to technical factors and patient's positioning. Persistent opacification o f the right upper lung zone. Right lower intercostal drainage tube with the tip superimposed on the m edial aspect of the right lower lung zone. Interval insertion of an endotracheal tube with the tip is about 3.5 cm proximal to the [place]. NG tu be with tip is seen within the stomach. Unchanged right central venous line. IMPRESSION: Apparently slightly larger right pneumothorax as described above. Interval insertion of an endotrache al tube.
--- NOTE | 2021-08-11 11:10 | PCN ---
PROCEDURE NOTE PULMONARY/CRITICAL CARE PROCEDURE NOTE: PROCEDURE: Intubation. PREOPERATIVE DIAGNOSIS: Respiratory failure. POSTOPERATIVE DIAGNOSIS: Respiratory failure. OPERATORS: 1. Dr. Saleem. 2. Dr. Villaseñor. PROCEDURE DESCRIPTION: We used a standard laryngoscope with #3 Lily blade. We used a #8 endotracheal tube with a stylet. After the patient was sedated with Ativan 2 mg, morphine 5 mg, and 3 mL of succinylcholine which is 60 mg, under direct visualization using the rigiscope with #3 Lily blade, we were able to fully observe the glottic opening. Endotracheal tube was pushed through the glottic opening into the trachea. The balloon on the endotracheal tube was inflated. The qualitative capnograph showed good color change. There were good bilateral breath sounds and good elevation of both right and left chest. The patient tolerated procedure well. After that, we gave the patient 10 mg of cisatracurium, or Nimbex. The patient was connected to the ventilator. There was no immediate complication. Will go ahead and get a chest x-ray. Also we will go ahead and get a blood gas in about 30 to 45 minutes. MMODL / IJN: [id number] / MTDD
[2021-08-11] MEDS ORDERED: SODIUM CHLORIDE 0.9% 1,000 ML IV ONE ×2 (11:43→16:35)
--- NOTE | 2021-08-11 12:40 | PCN ---
PROCEDURE NOTE PROCEDURE: Right-sided chest tube placement. PREOPERATIVE DIAGNOSIS: Right pneumothorax. POSTOPERATIVE DIAGNOSIS: Right pneumothorax. OPERATORS: 1. Dr. Saleem. 2. Dr. Villaseñor. PROCEDURE DESCRIPTION: We used a #28-Togolese chest tube. The insertion site was the midpoint between the anterior axillary line and the mid axillary line at the sixth intercostal space. A small incision was made. Blunt forceps were used to dissect down into the pleural space. There was a whoosh of air once we entered the pleural space. A #28-Togolese tube was inserted without difficulty. It was sutured in place. A sterile dressing was applied. A chest x-ray was ordered. There was no complication. The chest tube was attached to a Pleur-evac device. MMODL / IJN: [id number] /
--- NOTE | 2021-08-11 12:46 | XR ---
EXAMINATION TYPE: XR chest 1V portable DATE OF EXAM: 08/11/2021 CLINICAL HISTORY: Second chest tube insertion. TECHNIQUE: Two AP portable frontal upright views of the chest are obtained. COMPARISON: Chest x-ray from earlier today an older studies FINDINGS: Stable endotracheal and orogastric tubes. Stable right subclavian central venous catheter. Stable right basilar chest tube. New second chest tube terminates right suprahilar level. Background chronic emphysematous change is redemonstrated. Cardiac silhouette size stable and within normal limits. Chronic right-sided volume loss redemonstrated. Persistent overlying subcutaneous emph ysema. No visualized right-sided pneumothorax currently after second chest tube insertion. Increased multifocal opacities in the right lung remain present. Osseous structures remain intact. Chronic righ t hilar masslike opacity. Left lung shows persistent basilar opacity. Pneumoperitoneum is likely pres ent. IMPRESSION: Resolved right basilar pneumothorax after second chest tube insertion. Other findings sta ble.
[2021-08-11] MEDS: SODIUM CHLORIDE 0.9% 1,000 ML IV SCH ×2 (12:48→22:00)
[2021-08-11] MEDS: THIAMINE 100 MG TAB PO SCH (12:53)
[2021-08-11] MEDS: FOLIC ACID 1 MG TAB PO SCH (12:53)
[2021-08-11] MEDS: MULTIVITAMINS, THERA 1 EACH TAB PO SCH (12:53)
[2021-08-11] MEDS: NOREPINEPHRINE 32 MG in SODIUM CHLORIDE 0.9% 218 ML IV SCH (13:47)
--- NOTE | 2021-08-11 14:42 | P.PN ---
Subjective Progress Note Date: 08/11/21 Principal diagnosis: Resp failure, NSCLC In f/u today periorbital and facial edema resolved. He is sedated and mechanically ventilated. Objective - Vital Signs Vital signs: Vital Signs Temp 98.2 F 08/11/21 12:00 Pulse 109 H 08/11/21 14:00 Resp 22 08/11/21 14:00 BP 92/73 08/11/21 14:00 Pulse Ox 96 08/11/21 14:00 Intake & Output 08/10/21 08/11/21 08/11/21 18:59 06:59 18:59 Intake Total 256 640 9308.809 Output Total 520 615 205 Balance -400 -485 1158.809 Weight 51.2 kg 51.2 kg Intake: IV 968 440 1069 0.9 Normal Saline @ 10mL/ 120 130 50 hr Sodium Chloride 0.9% 1, 200 000 ml @ 100 mls/hr IV . Q10H [facility] Rx#:[id number] Sodium Chloride 0.9% 1, 1000 000 ml @ 999 mls/hr IV . Q1H1M [facility] Rx#:[id number] Intake, IV Titration 113.809 Amount Norepinephrine 8 mg In 40.081 Sodium Chloride 0.9% 250 ml @ 0.05 MCG/KG/MIN 4. 388 mls/hr IV .Q24H [facility] Rx#:[id number] propofoL 1,000 mg In 73.728 Empty Bag 1 bag @ Titrate IV .Q0M [facility] Rx#: [id number] Output: Chest Tube Drainage 0 Chest Tube Right Anterior 0 Chest Urine 520 615 205 Other: Voiding Method Indwelling Catheter Indwelling Catheter Indwelling Catheter ABP, PAP, CO, CI - Last Documented Arterial Blood Pressure 106/69 - Constitutional General appearance: Present: no acute distress, thin - Psychiatric Psychiatric: Absent: A&O x's 3, appropriate affect, intact judgment & insight - Labs CBC & Chem 7: 08/11/21 07:50 08/11/21 07:50 Labs: Abnormal Lab Results - Last 24 Hours (Table) 08/11/21 08/11/21 08/11/21 Range/Units 07:50 07:50 10:07 RBC 3.39 L (4.30-5.90) m/uL Hgb 9.7 L (13.0-17.5) gm/dL Hct 31.2 L (39.0-53.0) % RDW 15.9 H (11.5-15.5) % Neutrophils # 9.4 H (1.3-7.7) k/uL Lymphocytes # 0.4 L (1.0-4.8) k/uL ABG pCO2 72 H* (35-45) mmHg ABG HCO3 39 H (21-25) mmol/L ABG Total CO2 41 H (19-24) mmol/L Sodium 131 L (137-145) mmol/L Chloride 96 L (98-107) mmol/L Carbon Dioxide 40 H (22-30) mmol/L Creatinine 0.32 L (0.66-1.25) mg/dL Calcium 8.2 L (8.4-10.2) mg/dL AST 15 L (17-59) U/L Total Protein 4.8 L (6.3-8.2) g/dL Albumin 2.2 L (3.5-5.0) g/dL - Imaging and Cardiology Chest x-ray: report reviewed Assessment and Plan (1) Lung cancer Narrative/Plan: NSCLC. Currently on Keytruda. Has done well. No current evidence to suggest disease progressive/recurrence at this time. Pt will f/u with Primary Oncologist prior to resuming IO. Cytology from pleural fluid from chest tube did not show malignant cells Current Visit: Yes Status: Chronic Priority: Medium Code(s): C34.90 - MALIGNANT NEOPLASM OF UNSP PART OF UNSP BRONCHUS OR LUNG SNOMED Code(s): 970389918 (2) Oral thrush Narrative/Plan: Nystatin solution to treat. Current Visit: Yes Status: Acute Priority: Medium Code(s): B37.0 - CANDIDAL STOMATITIS SNOMED Code(s): 91472027 Plan: Pulmonary, Critical Care mgmt in ICU.
--- NOTE | 2021-08-11 18:04 | P.PN ---
Progress Note - Text Progress Note Date: 08/11/21 Chief Complaint: Cough with sputum History of presenting complaint: This is a very pleasant 56-year-old patient of Dr. Cabello. followed by Dr. Saleem of the director of strategic partnerships, Dr. Daniel the oncologist and Dr. Floyd Medina from radiation oncology. Diagnosis of with lung cancer. Has only had radiation treatment and chemotherapy. Currently getting immunotherapy. For about a week patient been having increasing amount of cough. Bringing up some green yellow and bloody sputum. Appetite has been poor. Bowels are okay. At home uses 3 L of oxygen. Has been having weight loss. Significantly short of breath and some wheezing. Tired rundown. In the ER the patient was found to have a large sided pneumothorax. 13-[place] Thora-vent was placed by ER physician. Repeat chest x-ray showed continued pneumothorax. Patient is put on suction for about an hour and subsequent x-ray showed improvement. This morning patient still short of breath but slightly better. Tired. Continues to have his chronic low back pain which is significant July 31: Patient has some pneumothorax on the right side. Some air leak. Subcutaneous emphysema. Given his immunosuppressed state steroids discontinued by pulmonary. Patient's breathing a bit better today. Congested cough. Eating some. Tired. Short of breath. IV cefepime August 01: Dr. Holley detected Thora-vent and flushed the catheter./The tubing. Tubing was replaced. Congested cough continues. Oral intake fair. Diet. 4 L nasal cannula. Propped up in bed. August 02: Because of persistent pneumothorax and increasing subcu to [address] Holley discontinued the Thora-vent and placed a right-sided chest tube. Oral intake fair. On 4 L nasal cannula. August 03: ICU: This morning patient became more short of breath. Brought to the ICU. Intubated. Drips include norepinephrine, propofol. Patient sedated. Ventilator: FiO2 60% and a PEEP of 5. Sinus rhythm. Discussed with daughter the bedside. August 04: ICU. Ventilator: 50/5. Telemetry: Sinus rhythm. Intubated. Sedated. Drips include IV propofol and norepinephrine. Subcutaneous emphysema present. Discussed with daughter the bedside. August 05: ICU. Patient was extubated earlier today. On nasal cannula. 5 L. Right-sided chest tube. Sinus tachycardia. Daughter the bedside. Awake answering questions. Subcutis emphysema significant. Short of breath. August 06: ICU. On 5 L of nasal cannula. Significant subcutaneous emphysema. Now has gone to the face. Some sinus tachycardia. Right-sided chest tube. Eating some. Spoke to the patient and daughter the bedside. August 07: ICU. On 12 L high flow nasal cannula. Alternating between BiPAP. Subcutis emphysema. Eating about 25%. Daughter the bedside. Right chest tube in place. August 08: ICU. 11 L high flow nasal cannula. Did eat his food. Using BiPAP sometimes. Some decrease in subcutaneous emphysema. Daughter the bedside. Right chest tube remains in place. August 09: ICU. 11 L nasal cannula. Eating better. Decrease in subcutaneous emphysema. Daughter at the bedside. Right chest tube in place. Less swelling of the face. August 10: ICU. Patient between BiPAP and high flow nasal cannula 15 L. Today was short of breath. Sinus tachycardia. and daughter the bedside. Right chest tube in place. Did eat some. I spoke to the . Prognosis guarded. August 11: ICU. Patient went into respiratory distress this morning. Dr. Saleem intubated him. Ventilator: FiO2 80 with PEEP of 7. Drips included propofol and levo fed. Daughter the bedside. Sinus tachycardia. Right-sided chest tube. Active Medications Acetaminophen (Acetaminophen Tab 325 Mg Tab) 650 mg PO Q6HR PRN PRN Reason: Mild Pain or Fever > 100.5 Albuterol/Ipratropium (Ipratropium-Albuterol 3 Ml Neb) 3 ml INHALATION RT-QID [facility] Last Admin: 08/11/21 16:50 Dose: 3 ml Documented by: Albuterol/Ipratropium (Ipratropium-Albuterol 3 Ml Neb) 3 ml INHALATION RT-Q2H PRN PRN Reason: Shortness Of Breath Or Wheezing Last Admin: 08/11/21 05:23 Dose: 3 ml Documented by: Chlorhexidine Gluconate (Chlorhexidine Gluconate 15 Ml Cup) 15 ml MUCOUS MEM BID [facility] Last Admin: 08/11/21 09:25 Dose: 15 ml Documented by: Enoxaparin Sodium (Enoxaparin 40 Mg/0.4 Ml Syringe) 40 mg SQ DAILY [facility] Last Admin: 08/11/21 08:02 Dose: 40 mg Documented by: Fentanyl (Fentanyl 100mcg/Hr Patch) 1 patch TRANSDERM Q72H [facility]; Protocol Last Admin: 08/11/21 02:15 Dose: Not Given Documented by: Folic Acid (Folic Acid 1 Mg Tab) 1 mg PO DAILY@1200 [facility] Last Admin: 08/11/21 12:53 Dose: 1 mg Documented by: Gabapentin (Gabapentin 300 Mg Cap) 300 mg PO [facility] Last Admin: 08/10/21 19:53 Dose: 300 mg Documented by: Hydromorphone HCl (Hydromorphone 1 Mg/Ml 1 Ml Syringe) 1 mg IVP Q3HR PRN PRN Reason: severe Pain Last Admin: 08/11/21 05:55 Dose: 1 mg Documented by: Propofol 1,000 mg/ IV Solution 100 mls @ 0 mls/hr IV .Q0M [facility]; Protocol Last Admin: 08/11/21 14:30 Dose: 50 mcg/kg/min, 15.36 mls/hr Documented by: Sodium Chloride (Saline 0.9%) 1,000 mls @ 100 mls/hr IV .Q10H [facility] Last Admin: 08/11/21 12:48 Dose: 100 mls/hr Documented by: Norepinephrine Bitartrate 32 (mg/ Sodium Chloride) 250 mls @ 1.2 mls/hr IV .Q24H [facility]; Protocol Last Admin: 08/11/21 13:47 Dose: 0.55 mcg/kg/min, 13.2 mls/hr Documented by: Magnesium Oxide (Magnesium Oxide 400 Mg Tab) 400 mg PO [facility] Last Admin: 08/10/21 19:53 Dose: 400 mg Documented by: Miscellaneous Information (Potassium Replacement Protocol 1 Each Misc) 1 each MISCELLANE DAILY PRN; Protocol PRN Reason: Per Protocol Multivitamins (Multivitamins, Thera 1 Each Tab) 1 each PO DAILY@1200 [facility] Last Admin: 08/11/21 12:53 Dose: 1 each Documented by: Naloxone HCl (Naloxone 0.4 Mg/Ml 1 Ml Vial) 0.2 mg IV Q2M PRN PRN Reason: Opioid Reversal Nystatin (Nystatin 100,000 Unit/Ml Susp 500,000 Unit/5 Ml Cup) 500,000 unit PO QID [facility] Last Admin: 08/11/21 12:53 Dose: 500,000 unit Documented by: Ondansetron HCl (Ondansetron Odt 4 Mg Tab) 4 mg PO Q6H PRN PRN Reason: Nausea And Vomiting Last Admin: 08/01/21 21:04 Dose: 4 mg Documented by: Pantoprazole Sodium (Pantoprazole 40 Mg Tablet) 40 mg PO DAILY [facility] Last Admin: 08/11/21 08:01 Dose: 40 mg Documented by: Paroxetine HCl (Paroxetine 20 Mg Tab) 20 mg PO HS [facility] Last Admin: 08/10/21 19:53 Dose: 20 mg Documented by: Polyethylene Glycol (Polyethylene Glycol 3350 17 Gm Powd.Pack) 17 gm PO DAILY PRN PRN Reason: Constipation Last Admin: 08/09/21 13:14 Dose: 17 gm Documented by: Prednisone (Prednisone 10 Mg Tab) 30 mg PO DAILY [facility] Last Admin: 08/11/21 08:01 Dose: 30 mg Documented by: Quetiapine Fumarate (Quetiapine 25 Mg Tab) 25 mg PO BID [facility] Last Admin: 08/11/21 08:01 Dose: 25 mg Documented by: Senna/Docusate Sodium (Sennosides-Docusate Sodium 1 Each Tab) 2 each PO BID [facility] Last Admin: 08/11/21 08:03 Dose: Not Given Documented by: Sodium Chloride (Sodium Chloride 0.9% Flush 10 Ml Syringe) 10 ml IV Q12HR [facility] Last Admin: 08/11/21 08:02 Dose: 10 ml Documented by: Sodium Chloride (Sodium Chloride 0.9% Flush 10 Ml Syringe) 10 ml IV DIRECTED PRN PRN Reason: FLUSH Thiamine HCl (Thiamine 100 Mg Tab) 100 mg PO DAILY@1200 [facility] Last Admin: 08/11/21 12:53 Dose: 100 mg Documented by: Past medical history to include: Lung cancer, COPD, GERD, Social history: Patient smoked a pack a day for about 37 years, stopped around 2018. Used to work in a [employer]. 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 Lives with daughter. No alcohol. Family history: Lung cancer Physical examination: VITAL SIGNS: 98.2, 86, 21, 108/76, 99% on the ventilator GENERAL: Intubated [ Loss of muscle mass and subcutaneous fat]. Right-sided chest tube. Subcutaneous emphysema EYES: Pupils equal. Conjunctiva pale HEENT: External appearance of nose and ears normal, oral cavity grossly normal. Face more puffy NECK: JVD unable to assess; masses not palpable. HEART: First and second heart sounds are normal; no edema. LUNGS: Respiratory rate increased diminished breath sounds Right-sided chest tube. Subcutaneous emphysema ABDOMEN: Soft, nontender, liver spleen not palpable, no masses palpable. PSYCH: Sedated MUSCULOSKELETAL:No Clubbing/cyanosis;muscles-grossly intact. Evidence of OA INVESTIGATIONS, reviewed in the clinical context: August 11: White count 10.2 hemoglobin 9.7 platelets 255 sodium 131 potassium 4.3 creatinine 0.3 to ABG: PCO2 32 pO2 101. Albumin 2.2 August 10: White count 4.4 hemoglobin 10 potassium 3.8 creatinine 0.34 sodium 131 August 09: White count 60 globin 10 platelets 244 potassium 4.1 creatinine 0.3 August 08: White count 5.5, benign 0.3and 3.4 creatinine 0.34 sodium 132 August 07: White count 10.1 hemoglobin 10.8 platelets 291 potassium 3.8 creatinine 0.37 August 06: White count 7.9 hemoglobin 9.4 potassium 3.7 creatinine 0.36. Chest x-ray: Worsening subcutaneous emphysema August 05: White count 13.6 hemoglobin 9 platelets 456 potassium 5 BUN 25 creatinine 0.5 for August 04: White count 13.5 hemoglobin 9.7 platelets were 85 potassium 4.6 creatinine 0.49 August 03: White count 14.4 hemoglobin 10.9 platelets 344 ABGs noted. Sodium 131 potassium 4.2 creatinine 0.5. Chest x-ray film: Pneumothorax minimal. Chest tube. Subcutaneous emphysema. Obesity right upper lobe. August 02: White count 9.7 hemoglobin 10.7 sodium 128 potassium 3.6 creatinine 0.45 August 01: White count 7.60 globin 10.2 albumin 2.9 Chest x-ray film personally reviewed by me [July 31]: Infiltrate. Some right-sided pneumothorax White count 8.3 hemoglobin 11.2 platelets 399 sodium 131 potassium 4.1 bicarb 32 BUN 14 creatinine 0.5 to EKG tracing personally reviewed by me-normal sinus rhythm. P pulmonale. T wave changes. Admission labs: Sodium 1:30 albumin 2.9 white count 13.4 hemoglobin 11 Chest x-ray film personally reviewed by [email or web address]-labhu pneumothorax. Right upper lobe mass Assessment and plan: -Right-sided pneumothorax, treated with Thora-vent in the ER. Chest tube placed on August 02. to suction -acute COPD exacerbation in a previous smoker.: Slow to respond DuoNeb. IV Solu-Medrol 40 mg every 12-changed over to prednisone -Acute hypoxic respiratory failure from pneumothorax and pneumonia: Worsening intubated on the ventilator August 03. Extubated August 05. Reintubated on August 11 -Subcutaneous emphysema: -Chronic hypoxic respiratory failure from underlying COPD 2-3 L of oxygen at home -Hyponatremia from decreased oral intake: -Septic shock: Improved IV levo fed discontinued -Suspect underlying pneumonia with gram-negative organism Cefepime 2 g every 8: Completed course -Lung cancer with metastatic disease status post chemotherapy and radiation treatment. Currently on immunotherapy. -Anxiety not otherwise specified Paxil 20 mg daily at bedtime -Anorexia secondary to underlying malignancy Encourage oral intake -Severe protein calorie malnutrition from decreased oral intake from underlying malignancy Ensure. Dietitian. -GERD Protonix -Chronic Back pain from malignancy Duragesic patch 100 g, oxycodone 10 mg every 4 when necessary -Full code IV propofol and IV levo fed. DuoNeb. right-sided chest tube . Intubated today.. Prognosis not good
[2021-08-11] MEDS: GABAPENTIN 300 MG CAP PO SCH (20:12)
[2021-08-11] MEDS: MAGNESIUM OXIDE 400 MG TAB PO SCH (20:13)
[2021-08-11] MEDS: PARoxetine 20 MG TAB PO SCH (20:13)
[2021-08-12] MEDS: HYDROmorphone 1 MG/ML 1 ML SYRINGE IVP PRN ×2 (01:15→04:02)
[2021-08-12 05:02] LABS: HCT 33.8 % (39.0-53.0); HGB 10.5 gm/dL (13.0-17.5); Hypochromasia Marked; MCH 29.3 pg (25.0-35.0); MCHC 31.2 g/dL (31.0-37.0); MCV 93.9 fL (80.0-100.0); Mean Platelet Volume 8.2; Platelet Count 382 k/uL (150-450); RDW 15.6 % (11.5-15.5); WBC 15.7 k/uL (3.8-10.6)
[2021-08-12 05:34] LABS: African American GFR (CKD) >90 (>60 ml/min/1.73 sqM); Anion Gap 6 mmol/L; Blood Urea Nitrogen 25 mg/dL (9-20); Calcium 7.9 mg/dL (8.4-10.2); Carbon Dioxide 28 mmol/L (22-30); Chloride 99 mmol/L (98-107); Glucose 109 mg/dL (74-99); Non-African American GFR(CKD) >90 (>60 ml/min/1.73 sqM); Potassium 4.7 mmol/L (3.5-5.1); Sodium 133 mmol/L (137-145)
[2021-08-12 05:55] LABS: ABG Base Excess 3.7 mmol/L; ABG HCO3 29 mmol/L (21-25); ABG PCO2 52 mmHg (35-45); ABG PH 7.36 (7.35-7.45); ABG PO2 73 mmHg (83-108); ABG TCO2 31 mmol/L (19-24); Allen Test Performed? Yes
[2021-08-12] MEDS: NOREPINEPHRINE 32 MG in SODIUM CHLORIDE 0.9% 218 ML IV SCH ×2 (06:33→18:51)
[2021-08-12] MEDS: IPRATROPIUM-ALBUTEROL 3 ML NEB INHALATION SCH ×4 (07:11→19:35)
[2021-08-12] MEDS: SODIUM CHLORIDE 0.9% 1,000 ML IV SCH ×2 (07:53→18:50)
[2021-08-12] MEDS: CHLORHEXIDINE GLUCONATE 15 ML CUP MUCOUS MEM SCH ×2 (07:59→20:43)
[2021-08-12] MEDS: ENOXAPARIN 40 MG/0.4 ML SYRINGE SQ SCH (08:00)
[2021-08-12] MEDS: QUEtiapine 25 MG TAB PO SCH ×2 (08:00→20:44)
[2021-08-12] MEDS: NYSTATIN 100,000 UNIT/ML SUSP 500,000 UNIT/5 ML CUP PO SCH ×4 (08:00→20:44)
[2021-08-12] MEDS: PANTOPRAZOLE 40 MG TABLET PO SCH (08:00)
[2021-08-12] MEDS: predniSONE 10 MG TAB PO SCH (08:00)
--- NOTE | 2021-08-12 08:04 | XR ---
EXAMINATION TYPE: XR chest 1V portable DATE OF EXAM: 08/12/2021 COMPARISON: X-ray dated 08/11/2021 HISTORY: Follow-up TECHNIQUE: Single frontal view of the chest is obtained. FINDINGS: The patient is slightly tilted to the right side. 2 right-sided intercostal drainage tubes with the t ip of the superior one superimposed on the medial aspect of the midlung zone and the tip of the infer ior one is slightly more inferiorly. The tip of the tracheostomy tube is seen about 4.6 cm proximal t o the [place]. NG tube is seen in place. A central venous line with the tip seen at the inferior aspec t SVC. Progressive right chest wall soft tissue emphysema. Persistent opacity in the left lung base. Persist ent heterogeneous opacity in the right upper lung zone, more prominent compared to the previous. Gene ralized increased density of the right lung with new heterogeneous opacity in the right lower lung zo ne, this could be exaggerated by the patient's position however underlying progressive infiltration c annot be excluded, attention on follow-up. Suspected small bilateral pleural effusions. Difficult ass essment for right-sided pneumothorax with the limitation of the described right hemithoracic changes. No gross cardiomegaly. IMPRESSION: Suspected progressive opacity in the right lung with progressive right chest wall soft tissue emphyse ma as described above. Recommend clinical correlation and attention on follow-up.
[2021-08-12] MEDS: SENNOSIDES-DOCUSATE SODIUM 1 EACH TAB PO SCH ×2 (08:07→20:44)
[2021-08-12] MEDS ORDERED: SODIUM CHLORIDE 0.9% 1,000 ML IV ONE ×2 (08:57→09:57)
[2021-08-12] MEDS ORDERED: HYDROmorphone 1 MG/ML 1 ML SYRINGE IVP PRN (08:58)
--- NOTE | 2021-08-12 10:03 | P.PN ---
Subjective Progress Note Date: 08/12/21 Principal diagnosis: Respiratory failure Reevaluated today on 08/05/2021, patient remains intubated mechanically ventilated, sedated, he is on assist control rate of 24 tidal volume 300 FiO2 40% PEEP of 5. ABG showed a pO2 of 93 pCO2 of 42 pH of 7.43. Patient remains on enteral tube feeding, he is on vital 1.5 at 50 mL per hour. Patient is on propofol which I placed on hold planning to wean and extubate the patient. He is also on norepinephrine at 0.03 mcg/kg/m. Right-sided chest tube remains in place, no air leak is noted, however the patient seems to be developing wor sening subcutaneous emphysema. There is no evidence of pneumothorax. Patient is arousable, follows simple instructions, but intermittently seems to be a bit agitated, hence I started the patient on Precedex, I discontinued his propofol, and I plan to give the patient a weaning trial and hopefully extubate today. Chest x-ray shows right-sided volume loss with multifocal right lung opacities and the right hilar mass like opacity and evidence of subcutaneous emphysema noted WBC count is 13.6 hemoglobin is 9 electrolytes are normal renal profile is normal bicarb is 27 Reevaluated today on 08/06/2021, patient remains in the ICU, he was extubated yesterday, tolerated the extubation well. He is now on 4 L nasal cannula, no major issues over the last 24 hours except he continues to have a chest tube on the right side, positive air leak, and he continues to have significant worsening subcutaneous emphysema. Chest x-ray is basically unchanged. Continues to have significant subcutaneous emphysema, and the findings on the right lung are basically the same. Patient is comfortable, he is not in distress. Afebrile, vital signs are stable. No labs were done today on this patient Reevaluated today on 08/07/2021, remains in the ICU, patient has been tolerating the extubation well for the last few days, however he remains marginal at best. Patient had to be placed back on BiPAP yesterday, he is requiring intermittent Dilaudid and Ativan to keep him calm. Overall not much of a change except he is off mechanical ventilation, continues to have significant subcutaneous emphysema but improving. When off BiPAP, the patient is on 15 L high flow cannula. He is off Precedex today. But again requiring Ativan and Dilaudid. Has been alternating between high flow cannula and BiPAP. WBC count today is 10 hemoglobin is 10.8 electrolytes are normal renal profile is normal, chest x-ray continues to show subcutaneous emphysema no visualized the right-sided pneumothorax, right-sided chest tube in place, I don't even see a leak this morning on the chest tube Pleur-evac. Reevaluated today on 08/09/2021, patient remains in the ICU, he is now on high flow nasal cannula, 10 L/m, he is not using BiPAP for the last 24 hours. Patient is feeling much better today compared to the last few days, his subcutaneous emphysema is significantly better. Chest x-ray is showing definite improvement. There is no evidence of air leak and the chest tube, hence this was placed off wall suction. WBC count is 6 hemoglobin 10 electrolytes are normal except for slightly low sodium of 131 electrolytes are otherwise okay and history of profile is normal Reevaluated today on 08/10/2021, patient remains in the ICU, clinical status remains marginal at best. Patient is intermittently requiring BiPAP, and he seems to require intermittent sedation as he becomes quite anxious, agitated, and has to be given some sedation to calm him down. Chest x-ray is about the same. He is now back on BiPAP, his subcutaneous emphysema is improving. no air leak in the chest tube, will consider placing the tube off suction. Progress note dated 08/11/2021. The patient is again seen in the ICU, room 262. The patient was initially admitted on July 29. Patient came in with a diagnosis of lung cancer, right pneumothorax, and COPD exacerbation. A right chest tube was placed. The patient was in the ICU beginning on August 03. The patient required intubation on the same day, and was extubated on 08/05/2021. Unfortunately, today, the patient is in respiratory distress, and required reintubation. His done at the bedside by myself and Dr. Villaseñor. The patient previously was on BiPAP at 14/6 and 65%. The patient was getting saline at 10 mL an hour. The patient was quite tachypnea. Additionally, we did ask the patient if he wanted reintubation. Initially shook his head no. I spoke to the daughter. She stated that yesterday the patient would want to go back on life support. Because of the patient's indecision, we went ahead and intubated the patient concerned for his safety. The patient was placed on previously ventilator settings and FiO2 volume percent, PEEP of 5, tidal volume 300, and a respiratory rate of 24. Chest x-ray showed a worsening right-sided pneumothorax. An NG tube was noted. Arterial blood gases will be done. Labs from today show white count of 10.2, hemoglobin 9.7, hematocrit 31.2, platelet count 255,000. Sodium 131, potassium 4.3, chlorides 96, CO2 40, BUN 14, creatinine 0.32. Albumin is only 2.2. Sputum from August 03 shows pseudomonas aeruginosa. The patient is currently on cefepime. Progress note dated 08/12/2021. The patient is again seen in the ICU, room 262. The patient underwent intubation and mechanical ventilation yesterday, 08/11/2021. Currently, he is on the volume assist control, rate 20, tidal volume 350, FiO2 50%, PEEP of 10. Blood gases show pO2 73, pCO2 52, and pH is 7.36. The patient is on norepinephrine at 42 mcg/m, propofol at 40 mcg/kg/m, saline at 100 mL an hour, and vital AF at 20 mL an hour, with a goal of 40 mL an hour. The nurse will go ahead and get a CVP reading for us. We'll give him some additional fluids. We will also get a stat cortisol level. In addition, because of progressive hypotension, the patient will be placed on hydrocortisone, 50 mg IV push every 6 hours. A second right chest tube was placed yesterday. White count 15.7, hemoglobin 10.5, hematocrit 33.8, and platelet count 382,000. Sodium 133, potassium 4.7, chlorides 99, CO2 28, anion gap 6, BUN 25, creatinine 0.49. Microbiology from 08/03, revealed Pseudomonas in the sputum, which was vigorously treated. Repeat blood, urine, and sputum cultures are currently ordered. Chest x-ray shows 2 chest tubes on the right, and it partially opacified right hemithorax. Objective - Vital Signs Vital signs: Vital Signs Temp 98.9 F 08/12/21 08:00 Pulse 120 H 08/12/21 09:00 Resp 20 08/12/21 09:00 BP 107/73 08/12/21 09:00 Pulse Ox 93 L 08/12/21 09:00 Intake & Output 08/11/21 08/12/21 08/12/21 18:59 06:59 18:59 Intake Total 2933.809 2053.484 286.084 Output Total 580 465 65 Balance 2353.809 1588.484 221.084 Weight 51.2 kg 50.9 kg Intake: IV 2750 1200 200 0.9 Normal Saline @ 10mL/ 50 hr Sodium Chloride 0.9% 1, 700 1200 200 000 ml @ 100 mls/hr IV . Q10H [facility] Rx#:[id number] Sodium Chloride 0.9% 1, 2000 000 ml @ 999 mls/hr IV . Q1H1M [facility] Rx#:[id number] Intake, IV Titration 113.809 481.484 16.084 Amount Norepinephrine 32 mg In 234.70 Sodium Chloride 0.9% 218 ml @ 0.05 MCG/KG/MIN 1.2 mls/hr IV .Q24H [facility] Rx#: [id number] Norepinephrine 8 mg In 40.081 Sodium Chloride 0.9% 250 ml @ 0.05 MCG/KG/MIN 4. 388 mls/hr IV .Q24H [facility] Rx#:[id number] propofoL 1,000 mg In 73.728 246.784 16.084 Empty Bag 1 bag @ Titrate IV .Q0M [facility] Rx#: [id number] Tube Feeding 40 372 40 Other 30 30 Output: Chest Tube Drainage 0 Chest Tube Right Anterior 0 Chest Right Pleural CHest Tube 0 08/11/21 Gastric Drainage 250 Urine 330 465 65 Other: Voiding Method Indwelling Catheter Indwelling Catheter Indwelling Catheter ABP, PAP, CO, CI - Last Documented Arterial Blood Pressure 78/55 - Exam Sedated, with an orally placed endotracheal tube and NG tube. In no acute distress. HEENT examination is grossly unremarkable. Neck supple. Full range of motion. No adenopathy thyromegaly or neck vein distention. Cardiovascular examination reveals regular rhythm rate. S1-S2 normal. No S3 or S4. No discernible murmur noted. Heart sounds distant. Heart rate 120 bpm. Lungs reveal coarse inspiratory and expiratory rhonchi and expiratory wheezes. No crackles. Breath sounds equal bilaterally. Abdomen soft, without bowel sounds. No masses. Extremities are intact. No cyanosis clubbing or edema. Skin is without rash or lesion. Neurologic examination cannot be adequately assessed as the patient's currently sedated. - Labs CBC & Chem 7: 08/12/21 04:30 08/12/21 04:30 Labs: Abnormal Lab Results - Last 24 Hours (Table) 08/11/21 08/12/21 08/12/21 Range/Units 10:07 04:30 04:30 WBC 15.7 H (3.8-10.6) k/uL RBC 3.60 L (4.30-5.90) m/uL Hgb 10.5 L (13.0-17.5) gm/dL Hct 33.8 L (39.0-53.0) % RDW 15.6 H (11.5-15.5) % ABG pCO2 72 H* (35-45) mmHg ABG pO2 (83-108) mmHg ABG HCO3 39 H (21-25) mmol/L ABG Total CO2 41 H (19-24) mmol/L ABG O2 Saturation (94-97) % Sodium 133 L (137-145) mmol/L BUN 25 H (9-20) mg/dL Creatinine 0.49 L (0.66-1.25) mg/dL Glucose 109 H (74-99) mg/dL Calcium 7.9 L (8.4-10.2) mg/dL 08/12/21 Range/Units 05:52 WBC (3.8-10.6) k/uL RBC (4.30-5.90) m/uL Hgb (13.0-17.5) gm/dL Hct (39.0-53.0) % RDW (11.5-15.5) % ABG pCO2 52 H (35-45) mmHg ABG pO2 73 L (83-108) mmHg ABG HCO3 29 H (21-25) mmol/L ABG Total CO2 31 H (19-24) mmol/L ABG O2 Saturation 93.0 L (94-97) % Sodium (137-145) mmol/L BUN (9-20) mg/dL Creatinine (0.66-1.25) mg/dL Glucose (74-99) mg/dL Calcium (8.4-10.2) mg/dL Assessment and Plan Assessment: Acute on chronic hypoxemic respiratory failure, with intubation on 08/03/2021, and extubation on 08/05/2021, and reintubation on 08/11/2021. History of stage IV, poorly differentiated, non-small cell lung cancer, status post chemotherapy, radiation therapy, and ongoing immunotherapy. Acute right-sided pneumothorax, status/post right chest tube, and a second chest tube placed on 08/11/2021. Recent hospitalization for right lower lobe pneumonia secondary to pseudomonas aeruginosa, discharged on 07/03/2021. Tobacco dependence syndrome. Subcutaneous emphysema secondary to right-sided pneumothorax. Plan: Plan dated 08/11/2021. The patient was reintubated by myself and our nurse practitioner. An NG tube was placed. A repeat blood gas will be done. The patient was given Ativan, morphine, succinylcholine, and Nimbex, for rapid sequence intubation. The pat ient tolerated the procedure well. Another chest tube will be placed on the right side. We will attempt a directed to the right apex. The right-sided pneumothorax is a bit larger on chest x-ray. Unnecessary medications were discontinued. The cefepime was discontinued for the Pseudomonas in the sputum, on 08/03/2021. We will continue to follow make recommendations where appropriate. Prognosis is guarded. I did speak to the patient and the patient's daughter prior to reintubation. Plan dated 08/12/2021. The patient was reintubated yesterday. A second right-sided chest tube was placed. An NG tube was placed. Currently, the patient is on the ventilator, with an FiO2 of 50%, and PEEP of 10. Blood gases are adequate. The patient is on an escalating dose of norepinephrine. We will add vasopressin. The patient will get some additional fluids. We will do a CVP measurement. In addition, we'll get a stat cortisol, and put the patient on hydrocortisone, 50 mg IV push every 6 hours. Prednisone be discontinued. The patient remains on nutrition. Prognosis is very guarded. The patient will have repeat blood, urine, and sputum cultures. Time with Patient: Greater than 30
[2021-08-12 10:06] LABS: Amorphous Sediment,Urine Occasional /hpf; Appearance,Urine Cloudy (Clear); Bilirubin,Urine Negative (Negative); Blood,Urine Negative (Negative); Color,Urine Yellow; Glucose,Urine (UA) Negative (Negative); Hyaline Casts,Urine 1 /lpf (0-2); Ketones,Urine Negative (Negative); Leukocyte Esterase,Urine Negative (Negative); Mucus,Urine Few /hpf; Nitrite,Urine Negative (Negative); PH, Urine 5.5 (5.0-8.0); Protein,Urine 1+ (Negative); RBC,Urine 3 /hpf (0-5); Specific Gravity,Urine 1.019 (1.001-1.035); Squamous Epithelial Cell,Urine <1 /hpf (0-4); Urobilinogen,Urine <2.0 mg/dL (<2.0); WBC,Urine 1 /hpf (0-5)
[2021-08-12] MEDS: SODIUM CHLORIDE 0.9% 50 ML with VASOPRESSIN 20 UNIT IVPB SCH ×2 (10:35)
[2021-08-12] MEDS: HYDROCORTISONE SUCCINATE 100 MG/2 ML VIAL IV SCH ×2 (11:57→18:51)
[2021-08-12] MEDS: MULTIVITAMINS, THERA 1 EACH TAB PO SCH (11:57)
[2021-08-12] MEDS: FOLIC ACID 1 MG TAB PO SCH (11:57)
[2021-08-12] MEDS: THIAMINE 100 MG TAB PO SCH (11:57)
[2021-08-12 13:51] LABS: ABG Base Excess -1.5 mmol/L; ABG HCO3 27 mmol/L (21-25); ABG Oxygen Saturation 87.2 % (94-97); ABG PO2 70 mmHg (83-108); ABG TCO2 29 mmol/L (19-24)
[2021-08-12 13:53] VITALS: BMI 18.1
[2021-08-12 13:53] LABS: ABG PCO2 73 mmHg (35-45); ABG PH 7.18 (7.35-7.45); Allen Test Performed? no
--- NOTE | 2021-08-12 14:48 | XR ---
EXAMINATION TYPE: XR chest 1V DATE OF EXAM: 08/12/2021 COMPARISON: X-ray dated 08/12/2021 at 5:14 AM HISTORY: Follow-up TECHNIQUE: Single frontal view of the chest is obtained. FINDINGS: Pneumothorax component seen in the right lung base measuring 8mm, slightly more prominent compared to the previous x-ray. Questionable 3 mm pneumothorax in the right lung apex. Unchanged endotracheal tube, NG tube, right central venous line and right intercostal drainage tubes. Persistent increased density of the right lung and right chest wall soft tissue emphysema. Unchanged left lung. IMPRESSION: Slightly more apparent minimal right-sided pneumothorax as described above.
[2021-08-12 19:47] LABS: ABG Base Excess -2.5 mmol/L; ABG HCO3 26 mmol/L (21-25); ABG Oxygen Saturation 95.6 % (94-97); ABG PO2 102 mmHg (83-108); ABG TCO2 28 mmol/L (19-24); Allen Test Performed? Yes
[2021-08-12 19:53] LABS: ABG PCO2 71 mmHg (35-45); ABG PH 7.17 (7.35-7.45)
--- NOTE | 2021-08-12 20:03 | P.PN ---
Progress Note - Text Progress Note Date: 08/12/21 Chief Complaint: Cough with sputum History of presenting complaint: This is a very pleasant 56-year-old patient of Dr. Cabello. followed by Dr. Saleem of the creative services specialist, Dr. Daniel the oncologist and Dr. Floyd Medina from radiation oncology. Diagnosis of with lung cancer. Has only had radiation treatment and chemotherapy. Currently getting immunotherapy. For about a week patient been having increasing amount of cough. Bringing up some green yellow and bloody sputum. Appetite has been poor. Bowels are okay. At home uses 3 L of oxygen. Has been having weight loss. Significantly short of breath and some wheezing. Tired rundown. In the ER the patient was found to have a large sided pneumothorax. 13-Monegasque Thora-vent was placed by ER physician. Repeat chest x-ray showed continued pneumothorax. Patient is put on suction for about an hour and subsequent x-ray showed improvement. This morning patient still short of breath but slightly better. Tired. Continues to have his chronic low back pain which is significant July 31: Patient has some pneumothorax on the right side. Some air leak. Subcutaneous emphysema. Given his immunosuppressed state steroids discontinued by pulmonary. Patient's breathing a bit better today. Congested cough. Eating some. Tired. Short of breath. IV cefepime August 01: Dr. Holley detected Thora-vent and flushed the catheter./The tubing. Tubing was replaced. Congested cough continues. Oral intake fair. Diet. 4 L nasal cannula. Propped up in bed. August 02: Because of persistent pneumothorax and increasing subcu to [address] Holley discontinued the Thora-vent and placed a right-sided chest tube. Oral intake fair. On 4 L nasal cannula. August 03: ICU: This morning patient became more short of breath. Brought to the ICU. Intubated. Drips include norepinephrine, propofol. Patient sedated. Ventilator: FiO2 60% and a PEEP of 5. Sinus rhythm. Discussed with daughter the bedside. August 04: ICU. Ventilator: 50/5. Telemetry: Sinus rhythm. Intubated. Sedated. Drips include IV propofol and norepinephrine. Subcutaneous emphysema present. Discussed with daughter the bedside. August 05: ICU. Patient was extubated earlier today. On nasal cannula. 5 L. Right-sided chest tube. Sinus tachycardia. Daughter the bedside. Awake answering questions. Subcutis emphysema significant. Short of breath. August 06: ICU. On 5 L of nasal cannula. Significant subcutaneous emphysema. Now has gone to the face. Some sinus tachycardia. Right-sided chest tube. Eating some. Spoke to the patient and daughter the bedside. August 07: ICU. On 12 L high flow nasal cannula. Alternating between BiPAP. Subcutis emphysema. Eating about 25%. Daughter the bedside. Right chest tube in place. August 08: ICU. 11 L high flow nasal cannula. Did eat his food. Using BiPAP sometimes. Some decrease in subcutaneous emphysema. Daughter the bedside. Right chest tube remains in place. August 09: ICU. 11 L nasal cannula. Eating better. Decrease in subcutaneous emphysema. Daughter at the bedside. Right chest tube in place. Less swelling of the face. August 10: ICU. Patient between BiPAP and high flow nasal cannula 15 L. Today was short of breath. Sinus tachycardia. and daughter the bedside. Right chest tube in place. Did eat some. I spoke to the . Prognosis guarded. August 11: ICU. Patient went into respiratory distress this morning. Dr. Saleem intubated him. Ventilator: FiO2 80 with PEEP of 7. Drips included propofol and levo fed. Daughter the bedside. Sinus tachycardia. Right-sided chest tube. August 12: ICU intubated. Ventilator FiO2 100 a PEEP of 10. Drips include propofol, norepinephrine, vasopressin. Telemetry: Sinus tachycardia. Right- sided chest tube. Patient sedated. Daughter the bedside Active Medications Acetaminophen (Acetaminophen Tab 325 Mg Tab) 650 mg PO Q6HR PRN PRN Reason: Mild Pain or Fever > 100.5 Albuterol/Ipratropium (Ipratropium-Albuterol 3 Ml Neb) 3 ml INHALATION RT-QID [facility] Last Admin: 08/12/21 19:35 Dose: 3 ml Documented by: Albuterol/Ipratropium (Ipratropium-Albuterol 3 Ml Neb) 3 ml INHALATION RT-Q2H PRN PRN Reason: Shortness Of Breath Or Wheezing Last Admin: 08/11/21 05:23 Dose: 3 ml Documented by: Chlorhexidine Gluconate (Chlorhexidine Gluconate 15 Ml Cup) 15 ml MUCOUS MEM BID [facility] Last Admin: 08/12/21 07:59 Dose: 15 ml Documented by: Enoxaparin Sodium (Enoxaparin 40 Mg/0.4 Ml Syringe) 40 mg SQ DAILY [facility] Last Admin: 08/12/21 08:00 Dose: 40 mg Documented by: Folic Acid (Folic Acid 1 Mg Tab) 1 mg PO DAILY@1200 [facility] Last Admin: 08/12/21 11:57 Dose: 1 mg Documented by: Gabapentin (Gabapentin 300 Mg Cap) 300 mg PO [facility] Last Admin: 08/11/21 20:12 Dose: 300 mg Documented by: Hydrocortisone Sodium Succinate (Hydrocortisone Succinate 100 Mg/2 Ml Vial) 50 mg IV Q6HR [facility] Last Admin: 08/12/21 18:51 Dose: 50 mg Documented by: Hydromorphone HCl (Hydromorphone 1 Mg/Ml 1 Ml Syringe) 1 mg IVP Q2H PRN PRN Reason: severe Pain Propofol 1,000 mg/ IV Solution 100 mls @ 0 mls/hr IV .Q0M [facility]; Protocol Last Admin: 08/12/21 13:49 Dose: 40 mcg/kg/min, 12.216 mls/hr Documented by: Sodium Chloride (Saline 0.9%) 1,000 mls @ 100 mls/hr IV .Q10H [facility] Last Admin: 08/12/21 18:50 Dose: 100 mls/hr Documented by: Norepinephrine Bitartrate 32 (mg/ Sodium Chloride) 250 mls @ 1.2 mls/hr IV .Q24H [facility]; Protocol Last Admin: 08/12/21 18:51 Dose: 0.7 mcg/kg/min, 16.8 mls/hr Documented by: Vasopressin 20 unit/ Sodium (Chloride) 51 mls @ 4.59 mls/hr IVPB .Q11H7M [facility] Last Admin: 08/12/21 10:35 Dose: 4.59 mls/hr Documented by: Magnesium Oxide (Magnesium Oxide 400 Mg Tab) 400 mg PO [facility] Last Admin: 08/11/21 20:13 Dose: 400 mg Documented by: Miscellaneous Information (Potassium Replacement Protocol 1 Each Misc) 1 each MISCELLANE DAILY PRN; Protocol PRN Reason: Per Protocol Multivitamins (Multivitamins, Thera 1 Each Tab) 1 each PO DAILY@1200 [facility] Last Admin: 08/12/21 11:57 Dose: 1 each Documented by: Nystatin (Nystatin 100,000 Unit/Ml Susp 500,000 Unit/5 Ml Cup) 500,000 unit PO QID [facility] Last Admin: 08/12/21 18:49 Dose: Not Given Documented by: Pantoprazole Sodium (Pantoprazole 40 Mg/10 Ml Vial) 40 mg IVP DAILY [facility] Paroxetine HCl (Paroxetine 20 Mg Tab) 20 mg PO HS [facility] Last Admin: 08/11/21 20:13 Dose: 20 mg Documented by: Quetiapine Fumarate (Quetiapine 25 Mg Tab) 25 mg PO BID [facility] Last Admin: 08/12/21 08:00 Dose: 25 mg Documented by: Senna/Docusate Sodium (Sennosides-Docusate Sodium 1 Each Tab) 2 each PO BID [facility] Last Admin: 08/12/21 08:07 Dose: 2 each Documented by: Sodium Chloride (Sodium Chloride 0.9% Flush 10 Ml Syringe) 10 ml IV Q12HR [facility] Last Admin: 08/12/21 08:01 Dose: 10 ml Documented by: Thiamine HCl (Thiamine 100 Mg Tab) 100 mg PO DAILY@1200 [facility] Last Admin: 08/12/21 11:57 Dose: 100 mg Documented by: Past medical history to include: Lung cancer, COPD, GERD, Social history: Patient smoked a pack a day for about 37 years, stopped around 2018. Used to work in a [employer]. 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 Lives with daughter. No alcohol. Family history: Lung cancer Physical examination: VITAL SIGNS: 97.7, 98, 28, 92/54, 98% on the ventilator GENERAL: Intubated [ Loss of muscle mass and subcutaneous fat]. Right-sided chest tube. Subcutaneous emphysema EYES: Pupils equal. Conjunctiva pale HEENT: External appearance of nose and ears normal, oral cavity grossly normal. Face more puffy NECK: JVD unable to assess; masses not palpable. HEART: First and second heart sounds are normal; no edema. LUNGS: Respiratory rate increased diminished breath sounds Right-sided chest tube. Subcutaneous emphysema ABDOMEN: Soft, nontender, liver spleen not palpable, no masses palpable. PSYCH: Sedated MUSCULOSKELETAL:No Clubbing/cyanosis;muscles-grossly intact. Evidence of OA INVESTIGATIONS, reviewed in the clinical context: August 12: White count 15.7 hemoglobin 10.5 platelets 382 sodium 133 potassium 4.7 crit 0.49 cortisol 52 August 11: White count 10.2 hemoglobin 9.7 platelets 255 sodium 131 potassium 4.3 creatinine 0.3 to ABG: PCO2 32 pO2 101. Albumin 2.2 August 10: White count 4.4 hemoglobin 10 potassium 3.8 creatinine 0.34 sodium 131 August 09: White count 60 globin 10 platelets 244 potassium 4.1 creatinine 0.3 August 08: White count 5.5, benign 0.3and 3.4 creatinine 0.34 sodium 132 August 07: White count 10.1 hemoglobin 10.8 platelets 291 potassium 3.8 creatinine 0.37 August 06: White count 7.9 hemoglobin 9.4 potassium 3.7 creatinine 0.36. Chest x-ray: Worsening subcutaneous emphysema August 05: White count 13.6 hemoglobin 9 platelets 456 potassium 5 BUN 25 creatinine 0.5 for August 04: White count 13.5 hemoglobin 9.7 platelets were 85 potassium 4.6 creatinine 0.49 August 03: White count 14.4 hemoglobin 10.9 platelets 344 ABGs noted. Sodium 131 potassium 4.2 creatinine 0.5. Chest x-ray film: Pneumothorax minimal. Chest tube. Subcutaneous emphysema. Obesity right upper lobe. August 02: White count 9.7 hemoglobin 10.7 sodium 128 potassium 3.6 creatinine 0.45 August 01: White count 7.60 globin 10.2 albumin 2.9 Chest x-ray film personally reviewed by me [July 31]: Infiltrate. Some right-sided pneumothorax White count 8.3 hemoglobin 11.2 platelets 399 sodium 131 potassium 4.1 bicarb 32 BUN 14 creatinine 0.5 to EKG tracing personally reviewed by me-normal sinus rhythm. P pulmonale. T wave changes. Admission labs: Sodium 1:30 albumin 2.9 white count 13.4 hemoglobin 11 Chest x-ray film personally reviewed by [id number] pneumothorax. Right upper lobe mass Assessment and plan: -Right-sided pneumothorax, treated with Thora-vent in the ER. Chest tube placed on August 02. to suction -acute COPD exacerbation in a previous smoker.: Slow to respond DuoNeb. IV Solu-Medrol 40 mg every 12-changed over to prednisone. Now on IV Solu-Cortef -Acute hypoxic respiratory failure from pneumothorax and pneumonia: Not improving intubated on the ventilator August 03. Extubated August 05. Reintubated on August 11 -Subcutaneous emphysema: -Chronic hypoxic respiratory failure from underlying COPD 2-3 L of oxygen at home -Hyponatremia from decreased oral intake: -Septic shock: Improved IV levo fed discontinued -Suspect underlying pneumonia with gram-negative organism Cefepime 2 g every 8: Completed course -Lung cancer with metastatic disease status post chemotherapy and radiation treatment. Currently on immunotherapy. -Anxiety not otherwise specified Paxil 20 mg daily at bedtime -Anorexia secondary to underlying malignancy Encourage oral intake -Severe protein calorie malnutrition from decreased oral intake from underlying malignancy Ensure. Dietitian. -GERD Protonix -Chronic Back pain from malignancy Duragesic patch 100 g, oxycodone 10 mg every 4 when necessary -Full code IV propofol and IV levo fed, vasopressin. DuoNeb. right-sided chest tube . IV Solu-Cortef. Prognosis not good
[2021-08-12] MEDS: PARoxetine 20 MG TAB PO SCH (20:43)
[2021-08-12] MEDS: MAGNESIUM OXIDE 400 MG TAB PO SCH (20:43)
[2021-08-12] MEDS: GABAPENTIN 300 MG CAP PO SCH (20:43)
[2021-08-13] MEDS: SODIUM CHLORIDE 0.9% 50 ML with VASOPRESSIN 20 UNIT IVPB SCH ×4 (03:05→09:05)
[2021-08-13 03:17] VITALS: TEMP 98
[2021-08-13 05:03] LABS: ABG Base Excess -4.3 mmol/L; ABG HCO3 24 mmol/L (21-25); ABG Oxygen Saturation 56.5 % (94-97); ABG PCO2 62 mmHg (35-45); ABG TCO2 26 mmol/L (19-24)
[2021-08-13 05:07] LABS: ABG PH 7.19 (7.35-7.45); ABG PO2 36 mmHg (83-108); Allen Test Performed? no
[2021-08-13 05:46] LABS: HCT 37.4 % (39.0-53.0); Hypochromasia Marked; MCH 29.1 pg (25.0-35.0); MCHC 29.4 g/dL (31.0-37.0); MCV 98.8 fL (80.0-100.0); Macrocytosis Slight; Mean Platelet Volume 8.6; Platelet Count 364 k/uL (150-450); RBC 3.79 m/uL (4.30-5.90); RDW 15.8 % (11.5-15.5); WBC 21.6 k/uL (3.8-10.6)
[2021-08-13 05:48] LABS: African American GFR (CKD) >90 (>60 ml/min/1.73 sqM); Anion Gap 6 mmol/L; Blood Urea Nitrogen 30 mg/dL (9-20); Calcium 6.8 mg/dL (8.4-10.2); Carbon Dioxide 21 mmol/L (22-30); Chloride 109 mmol/L (98-107); Glucose 159 mg/dL (74-99); Non-African American GFR(CKD) >90 (>60 ml/min/1.73 sqM); Potassium 4.8 mmol/L (3.5-5.1); Sodium 136 mmol/L (137-145)
[2021-08-13] MEDS: HYDROCORTISONE SUCCINATE 100 MG/2 ML VIAL IV SCH ×2 (06:51)
[2021-08-13] MEDS: IPRATROPIUM-ALBUTEROL 3 ML NEB INHALATION SCH (07:25)
--- NOTE | 2021-08-13 08:04 | XR ---
EXAMINATION TYPE: XR chest 1V portable DATE OF EXAM: 08/13/2021 COMPARISON: X-ray dated 08/12/2021 HISTORY: Follow-up TECHNIQUE: Single frontal view of the chest is obtained. FINDINGS: Persistent small pneumothorax seen along the inferior and medial aspects of the right hemithorax. Thi s hasn't significantly progressed compared to the previous. Unchanged position of the right intercost al drainage tubes, the NG tube, the right central venous line and the endotracheal tube. There is per sistent mild cardiomediastinal shift to the right side. Suspected progressive opacification of the right lung mainly the mid and lower lung zones. The irregu lar opacity in the right upper lung zone and right hilum has not significantly progressed. Persistent loss of volume of the right lung. Unchanged left lung. Bilateral pleural effusions, slightly larger compared to the previous. IMPRESSION: Slight interval changes as described above.
--- NOTE | 2021-08-13 08:16 | P.PN ---
Subjective Progress Note Date: 08/13/21 Principal diagnosis: Respiratory failure Reevaluated today on 08/05/2021, patient remains intubated mechanically ventilated, sedated, he is on assist control rate of 24 tidal volume 300 FiO2 40% PEEP of 5. ABG showed a pO2 of 93 pCO2 of 42 pH of 7.43. Patient remains on enteral tube feeding, he is on vital 1.5 at 50 mL per hour. Patient is on propofol which I placed on hold planning to wean and extubate the patient. He is also on norepinephrine at 0.03 mcg/kg/m. Right-sided chest tube remains in place, no air leak is noted, however the patient seems to be developing wor sening subcutaneous emphysema. There is no evidence of pneumothorax. Patient is arousable, follows simple instructions, but intermittently seems to be a bit agitated, hence I started the patient on Precedex, I discontinued his propofol, and I plan to give the patient a weaning trial and hopefully extubate today. Chest x-ray shows right-sided volume loss with multifocal right lung opacities and the right hilar mass like opacity and evidence of subcutaneous emphysema noted WBC count is 13.6 hemoglobin is 9 electrolytes are normal renal profile is normal bicarb is 27 Reevaluated today on 08/06/2021, patient remains in the ICU, he was extubated yesterday, tolerated the extubation well. He is now on 4 L nasal cannula, no major issues over the last 24 hours except he continues to have a chest tube on the right side, positive air leak, and he continues to have significant worsening subcutaneous emphysema. Chest x-ray is basically unchanged. Continues to have significant subcutaneous emphysema, and the findings on the right lung are basically the same. Patient is comfortable, he is not in distress. Afebrile, vital signs are stable. No labs were done today on this patient Reevaluated today on 08/07/2021, remains in the ICU, patient has been tolerating the extubation well for the last few days, however he remains marginal at best. Patient had to be placed back on BiPAP yesterday, he is requiring intermittent Dilaudid and Ativan to keep him calm. Overall not much of a change except he is off mechanical ventilation, continues to have significant subcutaneous emphysema but improving. When off BiPAP, the patient is on 15 L high flow cannula. He is off Precedex today. But again requiring Ativan and Dilaudid. Has been alternating between high flow cannula and BiPAP. WBC count today is 10 hemoglobin is 10.8 electrolytes are normal renal profile is normal, chest x-ray continues to show subcutaneous emphysema no visualized the right-sided pneumothorax, right-sided chest tube in place, I don't even see a leak this morning on the chest tube Pleur-evac. Reevaluated today on 08/09/2021, patient remains in the ICU, he is now on high flow nasal cannula, 10 L/m, he is not using BiPAP for the last 24 hours. Patient is feeling much better today compared to the last few days, his subcutaneous emphysema is significantly better. Chest x-ray is showing definite improvement. There is no evidence of air leak and the chest tube, hence this was placed off wall suction. WBC count is 6 hemoglobin 10 electrolytes are normal except for slightly low sodium of 131 electrolytes are otherwise okay and history of profile is normal Reevaluated today on 08/10/2021, patient remains in the ICU, clinical status remains marginal at best. Patient is intermittently requiring BiPAP, and he seems to require intermittent sedation as he becomes quite anxious, agitated, and has to be given some sedation to calm him down. Chest x-ray is about the same. He is now back on BiPAP, his subcutaneous emphysema is improving. no air leak in the chest tube, will consider placing the tube off suction. Progress note dated 08/11/2021. The patient is again seen in the ICU, room 262. The patient was initially admitted on July 29. Patient came in with a diagnosis of lung cancer, right pneumothorax, and COPD exacerbation. A right chest tube was placed. The patient was in the ICU beginning on August 03. The patient required intubation on the same day, and was extubated on 08/05/2021. Unfortunately, today, the patient is in respiratory distress, and required reintubation. His done at the bedside by myself and Dr. Villaseñor. The patient previously was on BiPAP at 14/6 and 65%. The patient was getting saline at 10 mL an hour. The patient was quite tachypnea. Additionally, we did ask the patient if he wanted reintubation. Initially shook his head no. I spoke to the daughter. She stated that yesterday the patient would want to go back on life support. Because of the patient's indecision, we went ahead and intubated the patient concerned for his safety. The patient was placed on previously ventilator settings and FiO2 volume percent, PEEP of 5, tidal volume 300, and a respiratory rate of 24. Chest x-ray showed a worsening right-sided pneumothorax. An NG tube was noted. Arterial blood gases will be done. Labs from today show white count of 10.2, hemoglobin 9.7, hematocrit 31.2, platelet count 255,000. Sodium 131, potassium 4.3, chlorides 96, CO2 40, BUN 14, creatinine 0.32. Albumin is only 2.2. Sputum from August 03 shows pseudomonas aeruginosa. The patient is currently on cefepime. Progress note dated 08/12/2021. The patient is again seen in the ICU, room 262. The patient underwent intubation and mechanical ventilation yesterday, 08/11/2021. Currently, he is on the volume assist control, rate 20, tidal volume 350, FiO2 50%, PEEP of 10. Blood gases show pO2 73, pCO2 52, and pH is 7.36. The patient is on norepinephrine at 42 mcg/m, propofol at 40 mcg/kg/m, saline at 100 mL an hour, and vital AF at 20 mL an hour, with a goal of 40 mL an hour. The nurse will go ahead and get a CVP reading for us. We'll give him some additional fluids. We will also get a stat cortisol level. In addition, because of progressive hypotension, the patient will be placed on hydrocortisone, 50 mg IV push every 6 hours. A second right chest tube was placed yesterday. White count 15.7, hemoglobin 10.5, hematocrit 33.8, and platelet count 382,000. Sodium 133, potassium 4.7, chlorides 99, CO2 28, anion gap 6, BUN 25, creatinine 0.49. Microbiology from 08/03, revealed Pseudomonas in the sputum, which was vigorously treated. Repeat blood, urine, and sputum cultures are currently ordered. Chest x-ray shows 2 chest tubes on the right, and it partially opacified right hemithorax. Progress note dated 08/13/2021. 56-year-old male, again seen in room 262. The family has decided to make the patient a DO NOT RESUSCITATE. In addition, is likely that they will moved to comfort measures, sometime later today. Today, in the room was the daughter Federica, and the Ellie. I spoke to both of them in detail. Currently, the patient remains on the ventilator. Vent settings include the volume assist control, rate 36, tidal volume 350, FiO2 100%, PEEP of 15. Blood gases show pO2 of only 36, pCO2 62, and pH is 7.19. The patient is on saline at 150 mL an hour, vasopressin at 0.04 units per minute, and norepinephrine at 1.5 mcg/kg/m. Tube feedings on hold. The patient's on propofol at 20 mcg/kg/m. Chest x-ray shows a 2 right-sided chest tubes. Small pneumothorax is present. Laboratory data from today shows white count 21.6, hemoglobin 11, hematocrit 37.2, and platelet count 3 64,000. Sodium 136, potassium 4.8, chlorides 109, CO2 21, anion gap 6, BUN 30, creatinine 0.57. Calcium is 6.8. Objective - Vital Signs Vital signs: Vital Signs Temp 98.0 F 08/13/21 00:00 Pulse 131 H 08/13/21 07:00 Resp 36 H 08/13/21 07:00 BP 90/60 08/13/21 07:00 Pulse Ox 93 L 08/13/21 04:00 Intake & Output 08/12/21 08/13/21 08/13/21 18:59 06:59 18:59 Intake Total 6256.857 6982.131 Output Total 405 459 Balance 6042.092 0841.131 Weight 50.9 kg 51.4 kg Intake: IV 1100 1300 Sodium Chloride 0.9% 1, 1100 1300 000 ml @ 100 mls/hr IV . Q10H [facility] Rx#:[id number] Intake, IV Titration 325.366 356.131 Amount Norepinephrine 32 mg In 236.80 157.08 Sodium Chloride 0.9% 218 ml @ 0.05 MCG/KG/MIN 1.2 mls/hr IV .Q24H [facility] Rx#: [id number] propofoL 1,000 mg In 88.566 199.051 Empty Bag 1 bag @ Titrate IV .Q0M [facility] Rx#: [id number] Tube Feeding 310 350 Other 60 Output: Chest Tube Drainage 19 Chest Tube Right Anterior 10 Chest Right Pleural CHest Tube 9 08/11/21 Urine 405 440 Other: Voiding Method Indwelling Catheter Indwelling Catheter ABP, PAP, CO, CI - Last Documented Arterial Blood Pressure 78/45 - Exam Sedated, with an orally placed endotracheal tube and NG tube. In no acute distress. HEENT examination is grossly unremarkable. Neck supple. Full range of motion. No adenopathy thyromegaly or neck vein distention. Cardiovascular examination reveals regular rhythm rate. S1-S2 normal. No S3 or S4. No discernible murmur noted. Heart sounds distant. Heart rate 131 bpm. Lungs reveal coarse inspiratory and expiratory rhonchi and expiratory wheezes. No crackles. Breath sounds equal bilaterally. 2 right-sided chest tubes are noted. Abdomen soft, without bowel sounds. No masses. Extremities are intact. No cyanosis clubbing or edema. Skin is without rash or lesion. Neurologic examination cannot be adequately assessed as the patient's currently sedated. - Labs CBC & Chem 7: 08/13/21 05:00 08/13/21 05:00 Labs: Abnormal Lab Results - Last 24 Hours (Table) 08/12/21 08/12/21 08/12/21 Range/Units 04:30 09:20 13:50 WBC (3.8-10.6) k/uL RBC (4.30-5.90) m/uL Hgb (13.0-17.5) gm/dL Hct (39.0-53.0) % MCHC (31.0-37.0) g/dL RDW (11.5-15.5) % ABG pH 7.18 L* (7.35-7.45) ABG pCO2 73 H* (35-45) mmHg ABG pO2 70 L (83-108) mmHg ABG HCO3 27 H (21-25) mmol/L ABG Total CO2 29 H (19-24) mmol/L ABG O2 Saturation 87.2 L (94-97) % Sodium (137-145) mmol/L Chloride (98-107) mmol/L Carbon Dioxide (22-30) mmol/L BUN (9-20) mg/dL Creatinine (0.66-1.25) mg/dL Glucose (74-99) mg/dL Calcium (8.4-10.2) mg/dL Procalcitonin 6.50 H (0.02-0.09) ng/mL Urine Protein 1+ H (Negative) Amorphous Sediment Occasional H (None) /hpf Urine Mucus Few H (None) /hpf 08/12/21 08/13/21 08/13/21 Range/Units 19:42 05:00 05:00 WBC 21.6 H (3.8-10.6) k/uL RBC 3.79 L (4.30-5.90) m/uL Hgb 11.0 L (13.0-17.5) gm/dL Hct 37.4 L (39.0-53.0) % MCHC 29.4 L (31.0-37.0) g/dL RDW 15.8 H (11.5-15.5) % ABG pH 7.17 L* (7.35-7.45) ABG pCO2 71 H* (35-45) mmHg ABG pO2 (83-108) mmHg ABG HCO3 26 H (21-25) mmol/L ABG Total CO2 28 H (19-24) mmol/L ABG O2 Saturation (94-97) % Sodium 136 L (137-145) mmol/L Chloride 109 H (98-107) mmol/L Carbon Dioxide 21 L (22-30) mmol/L BUN 30 H (9-20) mg/dL Creatinine 0.57 L (0.66-1.25) mg/dL Glucose 159 H (74-99) mg/dL Calcium 6.8 L (8.4-10.2) mg/dL Procalcitonin (0.02-0.09) ng/mL Urine Protein (Negative) Amorphous Sediment (None) /hpf Urine Mucus (None) /hpf 08/13/21 Range/Units 05:02 WBC (3.8-10.6) k/uL RBC (4.30-5.90) m/uL Hgb (13.0-17.5) gm/dL Hct (39.0-53.0) % MCHC (31.0-37.0) g/dL RDW (11.5-15.5) % ABG pH 7.19 L* (7.35-7.45) ABG pCO2 62 H (35-45) mmHg ABG pO2 36 L* (83-108) mmHg ABG HCO3 (21-25) mmol/L ABG Total CO2 26 H (19-24) mmol/L ABG O2 Saturation 56.5 L (94-97) % Sodium (137-145) mmol/L Chloride (98-107) mmol/L Carbon Dioxide (22-30) mmol/L BUN (9-20) mg/dL Creatinine (0.66-1.25) mg/dL Glucose (74-99) mg/dL Calcium (8.4-10.2) mg/dL Procalcitonin (0.02-0.09) ng/mL Urine Protein (Negative) Amorphous Sediment (None) /hpf Urine Mucus (None) /hpf Assessment and Plan Assessment: Acute on chronic hypoxemic respiratory failure, with intubation on 08/03/2021, and extubation on 08/05/2021, and reintubation on 08/11/2021. History of stage IV, poorly differentiated, non-small cell lung cancer, status post chemotherapy, radiation therapy, and ongoing immunotherapy. Acute right-sided pneumothorax, status/post right chest tube, and a second chest tube placed on 08/11/2021. Recent hospitalization for right lower lobe pneumonia secondary to pseudomonas aeruginosa, discharged on 07/03/2021. Tobacco dependence syndrome. Subcutaneous emphysema secondary to right-sided pneumothorax. Plan: Plan dated 08/11/2021. The patient was reintubated by myself and our nurse practitioner. An NG tube was placed. A repeat blood gas will be done. The patient was given Ativan, morphine, succinylcholine, and Nimbex, for rapid sequence intubation. The patient tolerated the procedure well. Another chest tube will be placed on the right side. We will attempt a directed to the right apex. The right-sided pneumothorax is a bit larger on chest x-ray. Unnecessary medications were discontinued. The cefepime was discontinued for the Pseudomonas in the sputum, on 08/03/2021. We will continue to follow make recommendations where appropriate. Prognosis is guarded. I did speak to the patient and the patient's daughter prior to reintubation. Plan dated 08/12/2021. The patient was reintubated yesterday. A second right-sided chest tube was placed. An NG tube was placed. Currently, the patient is on the ventilator, with an FiO2 of 50%, and PEEP of 10. Blood gases are adequate. The patient is on an escalating dose of norepinephrine. We will add vasopressin. The patient will get some additional fluids. We will do a CVP measurement. In addition, we'll get a stat cortisol, and put the patient on hydrocortisone, 50 mg IV push every 6 hours. Prednisone be discontinued. The patient remains on nutrition. Prognosis is very guarded. The patient will have repeat blood, urine, and sputum cultures. Plan dated 08/13/2021. The patient is doing very poorly. He seemed to take a turn for the worse yesterday afternoon. I had a long conversation with the patient's , Ellie, and the daughter, Federica. They were in the room this morning. They decided to make Mr. Amado a DO NOT RESUSCITATE. In addition, later today once family members her into see him, he likely will transition to comfort care. He is on maximal doses of both vasopressin and norepinephrine. The patient remains sedated on propofol. Tube feedings are on hold. Blood gases are poor with a pO2 of only 36. Additional recommendations and suggestions are forthcoming. I don't suspect the patient will last very long once he is removed from life support. Time with Patient: Greater than 30
[2021-08-13] MEDS ORDERED: PANTOPRAZOLE 40 MG/10 ML VIAL IVP SCH (09:00)
[2021-08-13] MEDS: SODIUM CHLORIDE 0.9% 1,000 ML IV SCH (09:04)
[2021-08-13 09:08] VITALS: BP 88/62; PULSE 108; RESP 5
--- NOTE | 2021-08-13 22:05 | P.DS ---
Providers Date of admission: 07/29/21 23:18 Expected date of discharge: 08/13/21 Attending physician: Manolo Cazares Consults: 07/29/21 23:19 Consult Physician Urgent Consulting Provider: Erendira Holley Consult Reason/Comments: right sided pneumothorax s/p chest tube Do you want consulting provider notified?: Yes 07/30/21 14:26 Consult Physician Routine Consulting Provider: Claudette Morrison Consult Reason/Comments: metastatic cancer Do you want consulting provider notified?: Yes Primary care physician: Shayne Cabello [facility] Course: Chief Complaint: Cough with sputum History of presenting complaint: This is a very pleasant 56-year-old patient of Dr. Cabello. followed by Dr. Saleem of the grounds foreman, Dr. Daniel the oncologist and Dr. Floyd Medina from radiation oncology. Diagnosis of with lung cancer. Has only had radiation treatment and chemotherapy. Currently getting immunotherapy. For about a week patient been having increasing amount of cough. Bringing up some green yellow and bloody sputum. Appetite has been poor. Bowels are okay. At home uses 3 L of oxygen. Has been having weight loss. Significantly short of breath and some wheezing. Tired rundown. In the ER the patient was found to have a large sided pneumothorax. 13-Emirati Thora-vent was placed by ER physician. Repeat chest x-ray showed continued pneumothorax. Patient is put on suction for about an hour and subsequent x-ray showed improvement. This morning patient still short of breath but slightly better. Tired. Continues to have his chronic low back pain which is significant July 31: Patient has some pneumothorax on the right side. Some air leak. Subcutaneous emphysema. Given his immunosuppressed state steroids discontinued by pulmonary. Patient's breathing a bit better today. Congested cough. Eating some. Tired. Short of breath. IV cefepime August 01: Dr. Holley detected Thora-vent and flushed the catheter./The t ubing. Tubing was replaced. Congested cough continues. Oral intake fair. Diet. 4 L nasal cannula. Propped up in bed. August 02: Because of persistent pneumothorax and increasing subcu to [address] Holley discontinued the Thora-vent and placed a right-sided chest tube. Oral intake fair. On 4 L nasal cannula. August 03: ICU: This morning patient became more short of breath. Brought to the ICU. Intubated. Drips include norepinephrine, propofol. Patient sedated. Ventilator: FiO2 60% and a PEEP of 5. Sinus rhythm. Discussed with daughter the bedside. August 04: ICU. Ventilator: 50/5. Telemetry: Sinus rhythm. Intubated. Sedated. Drips include IV propofol and norepinephrine. Subcutaneous emphysema present. Discussed with daughter the bedside. August 05: ICU. Patient was extubated earlier today. On nasal cannula. 5 L. Right-sided chest tube. Sinus tachycardia. Daughter the bedside. Awake answering questions. Subcutis emphysema significant. Short of breath. August 06: ICU. On 5 L of nasal cannula. Significant subcutaneous emphysema. Now has gone to the face. Some sinus tachycardia. Right-sided chest tube. Eating some. Spoke to the patient and daughter the bedside. August 07: ICU. On 12 L high flow nasal cannula. Alternating between BiPAP. Subcutis emphysema. Eating about 25%. Daughter the bedside. Right chest tube in place. August 08: ICU. 11 L high flow nasal cannula. Did eat his food. Using BiPAP sometimes. Some decrease in subcutaneous emphysema. Daughter the bedside. Right chest tube remains in place. August 09: ICU. 11 L nasal cannula. Eating better. Decrease in subcutaneous emphysema. Daughter at the bedside. Right chest tube in place. Less swelling of the face. August 10: ICU. Patient between BiPAP and high flow nasal cannula 15 L. Today was short of breath. Sinus tachycardia. and daughter the bedside. Right chest tube in place. Did eat some. I spoke to the . Prognosis guard ed. August 11: ICU. Patient went into respiratory distress this morning. Dr. Saleem intubated him. Ventilator: FiO2 80 with PEEP of 7. Drips included propofol and levo fed. Daughter the bedside. Sinus tachycardia. Right-sided chest tube. August 12: ICU intubated. Ventilator FiO2 100 a PEEP of 10. Drips include propofol, norepinephrine, vasopressin. Telemetry: Sinus tachycardia. Right- sided chest tube. Patient sedated. Daughter the bedside August 13: Patient continued to poorly. Dr. Saleem spoke to patient's family. Later patient Past medical history to include: Lung cancer, COPD, GERD, Social history: Patient smoked a pack a day for about 37 years, stopped around 2018. 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 Lives with daughter. No alcohol. Family history: Lung cancer Physical examination: VITAL SIGNS: 97.7, 98, 28, 92/54, 98% on the ventilator GENERAL: Intubated [ Loss of muscle mass and subcutaneous fat]. Right-sided chest tube. Subcutaneous emphysema EYES: Pupils equal. Conjunctiva pale HEENT: External appearance of nose and ears normal, oral cavity grossly normal. Face more puffy NECK: JVD unable to assess; masses not palpable. HEART: First and second heart sounds are normal; no edema. LUNGS: Respiratory rate increased diminished breath sounds Right-sided chest tube. Subcutaneous emphysema ABDOMEN: Soft, nontender, liver spleen not palpable, no masses palpable. PSYCH: Sedated MUSCULOSKELETAL:No Clubbing/cyanosis;muscles-grossly intact. Evidence of OA INVESTIGATIONS, reviewed in the clinical context: August 12: White count 15.7 hemoglobin 10.5 platelets 382 sodium 133 potassium 4.7 crit 0.49 cortisol 52 August 11: White count 10.2 hemoglobin 9.7 platelets 255 sodium 131 potassium 4.3 creatinine 0.3 to ABG: PCO2 32 pO2 101. Albumin 2.2 August 10: White count 4.4 hemoglobin 10 potassium 3.8 creatinine 0.34 sodium 131 August 09: White count 60 globin 10 platelets 244 potassium 4.1 creatinine 0.3 August 08: White count 5.5, benign 0.3and 3.4 creatinine 0.34 sodium 132 July 10: White count 10.1 hemoglobin 10.8 platelets 291 potassium 3.8 creatinine 0.37 August 06: White count 7.9 hemoglobin 9.4 potassium 3.7 creatinine 0.36. Chest x-ray: Worsening subcutaneous emphysema August 05: White count 13.6 hemoglobin 9 platelets 456 potassium 5 BUN 25 creatinine 0.5 for August 04: White count 13.5 hemoglobin 9.7 platelets were 85 potassium 4.6 creatinine 0.49 August 03: White count 14.4 hemoglobin 10.9 platelets 344 ABGs noted. Sodium 131 potassium 4.2 creatinine 0.5. Chest x-ray film: Pneumothorax minimal. Chest tube. Subcutaneous emphysema. Obesity right upper lobe. August 02: White count 9.7 hemoglobin 10.7 sodium 128 potassium 3.6 creatinine 0.45 August 01: White count 7.60 globin 10.2 albumin 2.9 Chest x-ray film personally reviewed by me [July 31]: Infiltrate. Some right-sided pneumothorax White count 8.3 hemoglobin 11.2 platelets 399 sodium 131 potassium 4.1 bicarb 32 BUN 14 creatinine 0.5 to EKG tracing personally reviewed by me-normal sinus rhythm. P pulmonale. T wave changes. Admission labs: Sodium 1:30 albumin 2.9 white count 13.4 hemoglobin 11 Chest x-ray film personally reviewed by [id number] pneumothorax. Right upper lobe mass Cause of : adenocarcinoma of the lung Assessment and plan: -Right-sided pneumothorax, treated with Thora-vent in the ER. Chest tube placed on August 02. to suction -acute COPD exacerbation in a previous smoker.: Slow to respond DuoNeb. IV Solu-Medrol 40 mg every 12-changed over to prednisone. Now on IV Solu-Cortef -Acute hypoxic respiratory failure from pneumothorax and pneumonia: Not improving intubated on the ventilator August 03. Extubated August 05. Reintubated on August 11 -Subcutaneous emphysema: -Chronic hypoxic respiratory failure from underlying COPD 2-3 L of oxygen at home -Hyponatremia from decreased oral intake: -Septic shock: Improved IV levo fed discontinued -Suspect underlying pneumonia with gram-negative organism Cefepime 2 g every 8: Completed course -Lung cancer with metastatic disease status post chemotherapy and radiation treatment. Currently on immunotherapy. -Anxiety not otherwise specified Paxil 20 mg daily at bedtime -Anorexia secondary to underlying malignancy Encourage oral intake -Severe protein calorie malnutrition from decreased oral intake from underlying malignancy Ensure. Dietitian. -GERD Protonix -Chronic Back pain from malignancy Duragesic patch 100 g, oxycodone 10 mg every 4 when necessary Disposition: Patient Plan - Discharge Summary Discharge Rx Participant: No New Discharge Prescriptions: Discontinued Albuterol Nebulized [Ventolin Nebulized] 2.5 mg INHALATION RT-Q6H PRN PRN Reason: Shortness Of Breath Pembrolizumab [Keytruda] 200 mg IVP Q21D Folic Acid 1 mg PO DAILY@1200 #30 tab Thiamine [Vitamin B-1] 100 mg PO DAILY@1200 #30 tab oxyCODONE HCL [oxyCODONE HCL (IR)] 10 mg PO Q4H PRN PRN Reason: Pain Cholestyramine (with Sugar) [Cholestyramine Packet] 4 gm PO DAILY PRN PRN Reason: Diarrhea predniSONE See Taper PO DIRECTED polyethylene glycoL 3350 [Miralax] 17 gm PO DAILY PRN PRN Reason: Constipation Multivitamins, Thera [Multivitamin (formulary)] 1 tab PO DAILY@1200 guaiFENesin [Mucinex] 1,200 mg PO Q12HR PRN PRN Reason: Cough Ipratropium-Albuterol Nebulize [Duoneb 0.5 mg-3 mg/3 ml Soln] 3 ml INHALATION RT-QID PRN PRN Reason: Shortness Of Breath Budesonide [Pulmicort Flexhaler] 2 puff INHALATION RT-BID PARoxetine [Paxil] 20 mg PO HS Omeprazole 40 mg PO DAILY Fluticasone/Umeclidin/Vilanter [Trelegy Ellipta 200-62.5-25] 1 puff INH ALATION RT-DAILY Ibuprofen [Motrin] 400 mg PO TID PRN PRN Reason: Pain Metoclopramide [Reglan] 5 mg PO TID PRN PRN Reason: Nausea Ondansetron Odt [Zofran ODT] 4 mg PO Q6H PRN PRN Reason: Nausea And Vomiting Magnesium Oxide [Mag-Ox] 400 mg PO HS fentaNYL 100MCG/HR PATCH [Duragesic 100MCG/HR] 1 patch TRANSDERM Q72H Sennosides-Docusate Sodium [Senokot-S] 2 tab PO BID Gabapentin [Neurontin] 300 mg PO HS Follow up Appointment(s)/Referral(s): Shayne Cabello DO [Primary Care Provider] - 1-2 days [facility] [NON-STAFF] - Activity/Diet/Wound Care/Special Instructions: pt may need a walker Discharge Disposition: - Preliminary Cause of Preliminary Cause of : Adenocarcinoma lung
== END 2021-08-13 12:40 | disposition expired | DRG 208 ==
LOC: EC 18:47 → 3SCARD 23:18 → 2SICU 08-03 08:18
PROVIDERS: ADMIT Hospitalist; ATTEND Hospitalist
PROC: 0W9930Z Drainage of Right Pleural Cavity with Drainage Device, Percutaneous Approach (ICD-10-PCS; 2021-08-02)
PROC: 03HY32Z Insertion of Monitoring Device into Upper Artery, Percutaneous Approach (ICD-10-PCS; 2021-08-03)
PROC: 4A133B1 Monitoring of Arterial Pressure, Peripheral, Percutaneous Approach (ICD-10-PCS; 2021-08-03)
PROC: 4A133J1 Monitoring of Arterial Pulse, Peripheral, Percutaneous Approach (ICD-10-PCS; 2021-08-03)
PROC: 0BH17EZ Insertion of Endotracheal Airway into Trachea, Via Natural or Artificial Opening (ICD-10-PCS; 2021-08-03)
PROC: 02HV33Z Insertion of Infusion Device into Superior Vena Cava, Percutaneous Approach (ICD-10-PCS; 2021-08-03)
PROC: 5A09357 Assistance with Respiratory Ventilation, Less than 24 Consecutive Hours, Continuous Positive Airway Pressure (ICD-10-PCS; 2021-08-03)
PROC: 5A0945A Assistance with Respiratory Ventilation, 24-96 Consecutive Hours, High Flow/Velocity Cannula (ICD-10-PCS; 2021-08-07)
PROC: 5A1945Z Respiratory Ventilation, 24-96 Consecutive Hours (ICD-10-PCS; principal; 2021-08-11)
PROC: 0BH18EZ Insertion of Endotracheal Airway into Trachea, Via Natural or Artificial Opening Endoscopic (ICD-10-PCS; 2021-08-11)
PROC: 0W9930Z Drainage of Right Pleural Cavity with Drainage Device, Percutaneous Approach (ICD-10-PCS; 2021-08-11)
PROC: 3E033XZ Introduction of Vasopressor into Peripheral Vein, Percutaneous Approach (ICD-10-PCS; 2021-08-11)
DX: J93.9 Pneumothorax, unspecified (principal); A41.9 Sepsis, unspecified organism; E43 Unspecified severe protein-calorie malnutrition; R65.21 Severe sepsis with septic shock; J96.21 Acute and chronic respiratory failure with hypoxia; J15.6 Pneumonia due to other Gram-negative bacteria; B37.0 Candidal stomatitis; C34.90 Malignant neoplasm of unspecified part of unspecified bronchus or lung; D84.9 Immunodeficiency, unspecified; E87.1 Hypo-osmolality and hyponatremia; C79.9 Secondary malignant neoplasm of unspecified site; Z68.1 Body mass index [BMI] 19.9 or less, adult; J93.82 Other air leak; B96.5 Pseudomonas (aeruginosa) (mallei) (pseudomallei) as the cause of diseases classified elsewhere; Z20.822 Contact with and (suspected) exposure to COVID-19; Z92.21 Personal history of antineoplastic chemotherapy; Z92.3 Personal history of irradiation; F17.200 Nicotine dependence, unspecified, uncomplicated; F41.9 Anxiety disorder, unspecified; G47.00 Insomnia, unspecified; G89.3 Neoplasm related pain (acute) (chronic); I95.89 Other hypotension; Z66 Do not resuscitate; Z51.5 Encounter for palliative care; J98.2 Interstitial emphysema; J43.9 Emphysema, unspecified; K21.9 Gastro-esophageal reflux disease without esophagitis; K59.00 Constipation, unspecified; Z79.52 Long term (current) use of systemic steroids; Z79.899 Other long term (current) drug therapy; Z80.1 Family history of malignant neoplasm of trachea, bronchus and lung
CPT/HCPCS: 36415; 36600; 71045; 71046; 80048; 80053; 81001; 82533; 82805; 83605; 83735; 84100; 84132; 84145; 84484; 85025; 85027; 85610; 85730; 87040; 87070; 87077; 87186; 87205; 87635; 88108; 88305; 93005; 94002; 94003; 94640; 94660; 94760; 96374; 96375; 99285